=== PATIENT | male | born 1935 | race Caucasian/White ===

== ENCOUNTER 2017-03-25 23:13 | Inpatient (IN) | payer MEDICARE, BC ==
[2017-03-26 01:31] LABS: Hematocrit 32 % (42-52); Hemoglobin 10.3 g/dl (14.0-18.0); Mean Corpuscular HGB Conc 32 g/dl (31-36); Mean Corpuscular Hemoglobin 26 pg (27-31); Mean Corpuscular Volume 81 fL (80-94); Mean Platelet Volume 8 um3 (7.4-10.4); Red Blood Count 3.95 10^6/ul (4.0-5.4); Red Cell Distribution Width 20 % (10.5-15); White Blood Count 9.1 10^3/ul (3.5-10.8)
[2017-03-26 01:48] LABS: Troponin I 0.07 ng/mL (<0.04)
[2017-03-26 01:49] LABS: Albumin 3.7 g/dL (3.2-5.2); C Reactive Protein 1.32 mg/L (< 5.00); Calcium 8.9 mg/dL (8.6-10.3); EGFR African American 53.9 (>60); EGFR Non-African American 41.9 (>60); Globulin 2.8 g/dL (2-4); Potassium 3.8 mmol/L (3.5-5.0); Total Bilirubin 0.5 mg/dL (0.2-1.0); Total Protein 6.5 g/dL (6.4-8.9)
[2017-03-26] MEDS ORDERED: Heparin DRIP 25,000 UNITS(*) 25,000 UNITS/500 ML BAG IVPB SCH (02:45)
[2017-03-26] MEDS ORDERED: Heparin VIAL(*) 5000 UNITS/ML VIAL (FIVE THOUSAND) IV SCH (03:00)
[2017-03-26 03:05] LABS: Hematocrit 31 % (42-52); Hemoglobin 10.1 g/dl (14.0-18.0); Mean Corpuscular HGB Conc 33 g/dl (31-36); Mean Corpuscular Hemoglobin 26 pg (27-31); Mean Corpuscular Volume 81 fL (80-94); Mean Platelet Volume 8 um3 (7.4-10.4); Red Blood Count 3.85 10^6/ul (4.0-5.4); Red Cell Distribution Width 21 % (10.5-15); White Blood Count 8.4 10^3/ul (3.5-10.8)
[2017-03-26] MEDS ORDERED: Melatonin (NF) 3 MG TAB PO PRN (03:06)
[2017-03-26] MEDS ORDERED: Morphine INJ* 2 MG/ML 1 ML SYRINGE (TWO MG - NEW SYRINGE VERSION) IV PRN (03:06)
[2017-03-26] MEDS ORDERED: Acetaminophen TAB* 325 MG PO PRN (03:06)
[2017-03-26 03:07] LABS: Erythrocyte Sed Rate 41 mm/Hr (0-40)
[2017-03-26] MEDS ORDERED: Ondansetron INJ* 2 MG/ML VIAL IV PRN (03:08)
--- NOTE | 2017-03-26 03:11 | HP ---
H&P (Free Text) History and Physical: PCP: Rhonda Harp MD Cardiology: Yobany Hill MD Date/Time: 03/26/2017 0305 CC: chest pain HPI: Mr Méndez is a 81YO male HX DM, HTN, HLD, pAFIB who reports onset mid- afternoon of mild L chest tightness & pain with N/T into his LUE without SOB, N/ V, sweats, palpitations, or light-headedness. While he states it began without exertion, it occurred while he was cleaning manure out of his 's 2 pet reindeer's pen. It did not change, but this evening he noticed his heart rate elevated in the 120s and became concerned he was back in AFIB which prompted him to present. Currently he is pain free, but still has an unusual awareness of his LUE. 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 LLE Ambulatory Orders Calcium Carbonate-Cholecalcife [Calcium + D3 600-200 mg-Unit] 1 tab PO QAM 11/05 Multivitamins/Minerals TAB* [Thera M Plus TAB*] 1 tab PO DAILY 11/05/12 Atorvastatin* [Lipitor 20 MG*] 40 mg PO QPM 10/08/15 Insulin Glargine [Lantus Solostar] 14 units SUBCUT QAM 11/12/15 Amiodarone HCl [Amiodarone HCl-] 100 mg PO SEE INSTRUCTIONS 08/04/16 Aspirin Low Dose CHEW TAB* [Aspirin Low Dose TAB*] 81 mg PO DAILY 08/04/16 Chlorthalidone TAB* [Hygroton TAB*] 25 mg PO QPM 08/04/16 Warfarin TAB(*) [Coumadin TAB(*)] 4 mg PO DAILY 08/11/16 Isosorbide Mononitrate ER TAB* [Imdur ER TAB*] 30 mg PO DAILY 08/12/16 Amlodipine Besylate [Norvasc 5 mg tab] 5 mg PO DAILY 03/26/17 Allergies Furosemide [From Lasix] Allergy (Mild, Verified 03/26/17 03:07) Rash Tramadol [From Ultram] Adverse Reaction (Mild, Verified 03/26/17 03:07) Dizziness KATHRYN Inhibitors Adverse Reaction (Verified 08/11/16 16:20) Unknown Reaction Details hyperkalemia Angiotensin Receptor Blockers Adverse Reaction (Verified 08/11/16 16:20) Unknown Reaction Details hyperkalemia Spironolactone Adverse Reaction (Verified 08/11/16 16:20) Unknown Reaction Details Hyperkalemia 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 by infection SocHx: no tobacco, alcohol, or recreational drug HX; lives with his ; retired from [employer]; full code status FamHx: adopted, no information known ROS: as above, otherwise reviewed and all were negative vitals: Vital Signs Temp 36.9 C 03/25/17 23:21 Pulse 56 03/26/17 03:30 Resp 16 03/26/17 03:30 BP 150/57 03/26/17 03:30 Pulse Ox 98 03/26/17 03:30 Intake & Output 03/25/17 03/25/17 03/26/17 11:59 23:59 11:59 Weight 81.647 kg Constitutional: NAD, normally developed, overweight white male HEENM: atraumatic; sclera/conjunctiva: non-icteric/clear; hearing: clinically mildly decreased; oropharynx: clear, mucosa moist Neck: soft tissue: non-tender; thyroid: normal Pulmonary: clear to auscultation bilaterally, good aeration, no accessory muscle use CV: RR/RR, normal S1S2, no carotid bruit, no jugular venous distention, trace to 1+ L DP/PT, 1+ L ankle edema Abdominal: soft, non-distended, non-tender, no rebound/guarding/rigidity, normoactive bowel sounds, no hepatosplenomegaly or masses, no costovertebral angle tenderness Musculoskeletal: general: prosthetic RLE in place; gait: stable Integumental: normal appearance and texture of exposed skin Psychiatric orientation: AA&O to PPS affect: calm mood: cooperative eye contact: good to fair content: reliable responses: timely insight: fair Testing: Lab Results 03/26/17 03/26/17 03/26/17 Range/Units 00:50 00:50 00:50 WBC 9.1 (3.5-10.8) 10^3/ul RBC 3.95 L (4.0-5.4) 10^6/ul Hgb 10.3 L (14.0-18.0) g/dl Hct 32 L (42-52) % MCV 81 (80-94) fL MCH 26 L (27-31) pg MCHC 32 (31-36) g/dl RDW 20 H (10.5-15) % Plt Count 193 (150-450) 10^3/ul MPV 8 (7.4-10.4) um3 Neut % (Auto) 80.0 (38-83) % Lymph % (Auto) 7.2 L (25-47) % [place] % (Auto) 10.0 H (1-9) % Eos % (Auto) 2.1 (0-6) % Baso % (Auto) 0.7 (0-2) % Absolute Neuts (auto) 7.3 (1.5-7.7) 10^3/ul Absolute Lymphs (auto) 0.7 L (1.0-4.8) 10^3/ul Absolute Monos (auto) 0.9 H (0-0.8) 10^3/ul Absolute Eos (auto) 0.2 (0-0.6) 10^3/ul Absolute Basos (auto) 0.1 (0-0.2) 10^3/ul Absolute Nucleated RBC 0 10^3/ul Nucleated RBC % 0 ESR 41 H (0-40) mm/Hr INR (Anticoag Therapy) (0.89-1.11) APTT (26.0-36.3) seconds Sodium 134 (133-145) mmol/L Potassium 3.8 (3.5-5.0) mmol/L Chloride 103 (101-111) mmol/L Carbon Dioxide 26 (22-32) mmol/L Anion Gap 5 (2-11) mmol/L BUN 56 H (6-24) mg/dL Creatinine 1.60 H (0.67-1.17) mg/dL Est GFR ( Amer) 53.9 (>60) Est GFR (Non-Af Amer) 41.9 (>60) BUN/Creatinine Ratio 35.0 H (8-20) Glucose 196 H (70-100) mg/dL Lactic Acid 0.4 L (0.5-2.0) mmol/L Calcium 8.9 (8.6-10.3) mg/dL Total Bilirubin 0.50 (0.2-1.0) mg/dL AST 41 H (13-39) U/L ALT 48 (7-52) U/L Alkaline Phosphatase 40 (34-104) U/L Troponin I 0.07 H* (<0.04) ng/mL C-Reactive Protein 1.32 (< 5.00) mg/L B-Natriuretic Peptide ( - 100) pg/mL Total Protein 6.5 (6.4-8.9) g/dL Albumin 3.7 (3.2-5.2) g/dL Globulin 2.8 (2-4) g/dL Albumin/Globulin Ratio 1.3 (1-3) 03/26/17 03/26/17 03/26/17 Range/Units 00:50 02:50 02:50 WBC (3.5-10.8) 10^3/ul RBC (4.0-5.4) 10^6/ul Hgb (14.0-18.0) g/dl Hct (42-52) % MCV (80-94) fL MCH (27-31) pg MCHC (31-36) g/dl RDW (10.5-15) % Plt Count (150-450) 10^3/ul MPV (7.4-10.4) um3 Neut % (Auto) (38-83) % Lymph % (Auto) (25-47) % [place] % (Auto) (1-9) % Eos % (Auto) (0-6) % Baso % (Auto) (0-2) % Absolute Neuts (auto) (1.5-7.7) 10^3/ul Absolute Lymphs (auto) (1.0-4.8) 10^3/ul Absolute Monos (auto) (0-0.8) 10^3/ul Absolute Eos (auto) (0-0.6) 10^3/ul Absolute Basos (auto) (0-0.2) 10^3/ul Absolute Nucleated RBC 10^3/ul Nucleated RBC % ESR (0-40) mm/Hr INR (Anticoag Therapy) 3.22 H (0.89-1.11) APTT 46.2 H (26.0-36.3) seconds Sodium (133-145) mmol/L Potassium (3.5-5.0) mmol/L Chloride (101-111) mmol/L Carbon Dioxide (22-32) mmol/L Anion Gap (2-11) mmol/L BUN 54 H (6-24) mg/dL Creatinine (0.67-1.17) mg/dL Est GFR ( Amer) (>60) Est GFR (Non-Af Amer) (>60) BUN/Creatinine Ratio (8-20) Glucose (70-100) mg/dL Lactic Acid (0.5-2.0) mmol/L Calcium (8.6-10.3) mg/dL Total Bilirubin (0.2-1.0) mg/dL AST (13-39) U/L ALT (7-52) U/L Alkaline Phosphatase (34-104) U/L Troponin I 0.08 H* (<0.04) ng/mL C-Reactive Protein (< 5.00) mg/L B-Natriuretic Peptide 314 H ( - 100) pg/mL Total Protein (6.4-8.9) g/dL Albumin (3.2-5.2) g/dL Globulin (2-4) g/dL Albumin/Globulin Ratio (1-3) 03/26/17 Range/Units 02:50 WBC 8.4 (3.5-10.8) 10^3/ul RBC 3.85 L (4.0-5.4) 10^6/ul Hgb 10.1 L (14.0-18.0) g/dl Hct 31 L (42-52) % MCV 81 (80-94) fL MCH 26 L (27-31) pg MCHC 33 (31-36) g/dl RDW 21 H (10.5-15) % Plt Count 186 (150-450) 10^3/ul MPV 8 (7.4-10.4) um3 Neut % (Auto) 78.4 (38-83) % Lymph % (Auto) 8.1 L (25-47) % [place] % (Auto) 10.2 H (1-9) % Eos % (Auto) 2.9 (0-6) % Baso % (Auto) 0.4 (0-2) % Absolute Neuts (auto) 6.6 (1.5-7.7) 10^3/ul Absolute Lymphs (auto) 0.7 L (1.0-4.8) 10^3/ul Absolute Monos (auto) 0.9 H (0-0.8) 10^3/ul Absolute Eos (auto) 0.2 (0-0.6) 10^3/ul Absolute Basos (auto) 0 (0-0.2) 10^3/ul Absolute Nucleated RBC 0 10^3/ul Nucleated RBC % 0 ESR (0-40) mm/Hr INR (Anticoag Therapy) (0.89-1.11) APTT (26.0-36.3) seconds Sodium (133-145) mmol/L Potassium (3.5-5.0) mmol/L Chloride (101-111) mmol/L Carbon Dioxide (22-32) mmol/L Anion Gap (2-11) mmol/L BUN (6-24) mg/dL Creatinine (0.67-1.17) mg/dL Est GFR ( Amer) (>60) Est GFR (Non-Af Amer) (>60) BUN/Creatinine Ratio (8-20) Glucose (70-100) mg/dL Lactic Acid (0.5-2.0) mmol/L Calcium (8.6-10.3) mg/dL Total Bilirubin (0.2-1.0) mg/dL AST (13-39) U/L ALT (7-52) U/L Alkaline Phosphatase (34-104) U/L Troponin I (<0.04) ng/mL C-Reactive Protein (< 5.00) mg/L B-Natriuretic Peptide ( - 100) pg/mL Total Protein (6.4-8.9) g/dL Albumin (3.2-5.2) g/dL Globulin (2-4) g/dL Albumin/Globulin Ratio (1-3) ECG, personally reviewed: 1st degree AV block rate 61, elevated J-point V1-2, no ischemia; similar to comparison 05/08/2016 CXR, personally reviewed: no acute process ECHO (05/2016): Conclusions: There is normal left ventricular systolic function. The estimated ejection fraction is 50-55%. Global left ventricular wall motion and contractility are within normal limits. The left ventricular chamber size is normal. Mild concentric left ventricular hypertrophy is observed. The left atrium is mildly dilated. Mild aortic stenosis. Since the prior echocardiogram completed 09/28/15, appears similar. Impression: 81M HX DM, HTN, HLD, & PAOD presents with new onset of unstable angina DIAGNOSIS & PLAN Primary unstable angina : telemetry : heparin GTT : aspirin given by EMS en route : no beta willie 2nd bradycardia : supplemental oxygen : trend troponin : update ECHO in AM : NPO x/ meds w/ sips H2O : consider chemical NST in AM vs cardiology consult to eval for cath pending troponin curve & ECHO : supportive care Secondary DM2 : A1c 8.3 01/2017 : Q4H glucometry : basal/correctional insulin pAFIB : currently 1st degree AV block : s/p cardioversion 2017 : continue amiodarone : hold warfarin while on heparin GTT HTN : continue amlodipine PAOD/HLD : failed revascularization to LLE : continue simvastatin Admission Rational: observation for unstable angina DVTp: heparin GTT Code Status: full HCP:
--- NOTE | 2017-03-26 03:35 | ED ---
Nikhil Villatoro Rebecca, scribed for Jeronimo Finney MD on 03/26/17 at 0147 . HPI Chest Pain - HPI Summary HPI Summary: Pt is a 81 y/o M BIBA who presents to ED c/o CP. Pain began yesterday in the midsternum. Pain is currently not present, though on triage it was mild, ranked 1/10. Pt was given 324 mg ASA and NTG en route to [facility] ED which did not irm. Pain was radiating to the LUE with associated LUE numbness. Sx aggravated by deep breaths alleviated by nothing. Upon inspiration, pt feels a slight midsternal pressure. Denies SOB. No prior similar episodes. PCP is Dr. Harp, cardiologists is Dr. Hill. - History of Current Complaint Chief Complaint: EDChestPainROMI Hx Obtained From: Patient Onset/Duration: Resolved Initial Severity: Mild - 1/10 Current Severity: None Pain Intensity: 0 Pain Scale Used: 0-10 Numeric Chest Pain Location: Mid Sternal Chest Pain Radiates: Yes Chest Pain Radiates To:: Arm - LUE Character: Pressure/Squeezing Aggravating Factor(s): Deep Breaths Alleviating Factor(s): Nothing Associated Signs and Symptoms: Positive: Negative. Negative: Shortness of Breath - Additional Pertinent History Primary Care Physician: [id number] - Allergy/Home Medications Allergies/Adverse Reactions: Allergies Allergy/AdvReac Type Severity Reaction Status Date / Time Furosemide [From Lasix] Allergy Mild Rash Verified 03/26/17 03:07 Tramadol [From Ultram] AdvReac Mild Dizziness Verified 03/26/17 03:07 KATHRYN Inhibitors AdvReac Unknown Verified 08/11/16 16:20 Reaction Details Angiotensin Receptor Blockers AdvReac Unknown Verified 08/11/16 16:20 Reaction Details Spironolactone AdvReac Unknown Verified 08/11/16 16:20 Reaction Details Home Medications: Home Medications Amlodipine Besylate [Norvasc 5 mg tab] 5 mg PO DAILY 03/26/17 [History Confirmed 03/26/17] PMH/Surg Hx/FS Hx/Imm Hx Endocrine/Hematology History: Reports: Hx Diabetes - II Denies: Hx Thyroid Disease Cardiovascular History: Reports: Hx Atrial Fibrillation, Hx Hypertension, Hx Peripheral Vascular Disease Denies: Hx Congestive Heart Failure, Other Cardiovascular Problems/Disorders - DENIES Respiratory History: Denies: Other Respiratory Problems/Disorders - DENIES History: Reports: Hx Renal Disease Musculoskeletal History: Reports: Other Musculoskeletal History Denies: Hx Arthritis, Hx Osteoporosis Sensory History: Reports: Hx Cataracts, Hx Contacts or Glasses Opthamlomology History: Reports: Hx Cataracts, Hx Contacts or Glasses Neurological History: Denies: Hx Headaches, Hx Seizures, Hx Transient Ischemic Attacks (TIA) - Surgical History Surgery Procedure, Year, and Place: RIGHT LEG AMPUTATION, BILAT ROTATOR CUFFS Infectious Disease History: No Infectious Disease History: Denies: Traveled Outside the [place] in Last 30 Days - Family History Known Family History: Positive: Unknown - Adopted Family History: Unknown - pt is adopted - Social History Alcohol Use: None Hx Substance Use: No Substance Use Type: Reports: None Hx Tobacco Use: No Smoking Status (MU): Never Smoked Tobacco Review of Systems Positive: Palpitations, Chest Pain Negative: Shortness Of Breath Positive: Numbness - LUE numbness All Other Systems Reviewed And Are Negative: Yes Physical Exam - Summary Physical Exam Summary: Appearance: Well-appearing, Well-nourished Skin: Warm Eyes: Normal ENT: Normal Neck: Supple, nontender, no JVD Respiratory: Clear to auscultation Cardiovascular: Holosystolic murmur throughout the pericardium, good pulses bilaterally on the radial and posterior tibial areas Abdomen: Soft, nontender, no masses, no pulsatile masses Bowel: Present Musculoskeletal: Normal, Strength/ROM Intact Neurological: Normal, A&Ox3 Psychiatric: Normal Triage Information Reviewed: Yes Vital Signs On Initial Exam: Initial Vitals Temp Pulse Resp BP Pulse Ox 98.4 F 60 12 149/45 98 03/25/17 23:21 03/25/17 23:21 03/25/17 23:21 03/25/17 23:21 03/25/17 23:21 Vital Signs Reviewed: Yes - [place] Coma Scale Coma Scale Total: 15 Diagnostics - Vital Signs Vital Signs Temp Pulse Resp BP Pulse Ox 03/26/17 01:00 59 11 133/49 96 03/26/17 00:30 60 12 133/55 97 03/26/17 00:01 57 11 140/47 97 03/26/17 00:00 57 13 97 03/25/17 23:30 61 12 142/42 95 03/25/17 23:28 61 15 98 03/25/17 23:23 61 12 97 03/25/17 23:21 98.4 F 60 12 145/49 98 - Laboratory Lab Results: Lab Results 03/26/17 Range/Units 00:50 WBC 9.1 (3.5-10.8) 10^3/ul RBC 3.95 L (4.0-5.4) 10^6/ul Hgb 10.3 L (14.0-18.0) g/dl Hct 32 L (42-52) % MCV 81 (80-94) fL MCH 26 L (27-31) pg MCHC 32 (31-36) g/dl RDW 20 H (10.5-15) % Plt Count 193 (150-450) 10^3/ul MPV 8 (7.4-10.4) um3 Neut % (Auto) 80.0 (38-83) % Lymph % (Auto) 7.2 L (25-47) % [place] % (Auto) 10.0 H (1-9) % Eos % (Auto) 2.1 (0-6) % Baso % (Auto) 0.7 (0-2) % Absolute Neuts (auto) 7.3 (1.5-7.7) 10^3/ul Absolute Lymphs (auto) 0.7 L (1.0-4.8) 10^3/ul Absolute Monos (auto) 0.9 H (0-0.8) 10^3/ul Absolute Eos (auto) 0.2 (0-0.6) 10^3/ul Absolute Basos (auto) 0.1 (0-0.2) 10^3/ul Absolute Nucleated RBC 0 10^3/ul Nucleated RBC % 0 ESR Pending Result Diagrams: 03/26/17 02:50 03/26/17 02:50 Lab Statement: Any lab studies that have been ordered have been reviewed, and results considered in the medical decision making process. - Radiology CXR Xray Interpretation: Positive (See Comments) - Right-sided haziness, R-sided streaks suggestive of possible atelectasis versus consolidation. Radiology Interpretation Completed By: ED Physician - EKG 0025 Cardiac Rate: NL - 61 bpm EKG Rhythm: 1st Degree HB - Possible 1st degree heart block EKG Interpretation: Prolonged [place] interval Chest Pain Course/Dx - Course Course Of Treatment: started on heparin for possible nstemi. no acute ekg changes. has elevated troponin today, first degree heart block seen on prior ekgs. - Diagnoses Provider Diagnoses: NSTEMI (non-ST elevated myocardial infarction) - Provider Notifications Discussed Care Of Patient With: River Reyna Time Discussed With Above Provider: 03:00 Instructed by Provider To: Other Discharge - Discharge Plan Condition: Stable Disposition: ADMITT[facility] TO [facility] The documentation as recorded by the Nikhil morris Rebecca accurately reflects the service I personally performed and the decisions made by , Jeronimo Finney MD.
[2017-03-26 03:44] LABS: Troponin I 0.08 ng/mL (<0.04)
[2017-03-26] MEDS: Insulin LISPRO* 1 UNITS UNIT SUBCUT SCH ×5 (05:12→20:44)
[2017-03-26] MEDS: Omeprazole CAP* 20 MG PO SCH (05:13)
[2017-03-26 06:42] LABS: BUN/Creatinine Ratio 33.3 (8-20); Calcium 9.1 mg/dL (8.6-10.3); EGFR African American 56.7 (>60); EGFR Non-African American 44.1 (>60); Potassium 3.5 mmol/L (3.5-5.0)
[2017-03-26 07:05] LABS: Troponin I 0.08 ng/mL (<0.04)
--- NOTE | 2017-03-26 07:53 | RAD ---
HISTORY: Chest pain COMPARISONS: February 06, 2015 VIEWS: 1: frontal portable view of the chest at 12:18 AM FINDINGS: LINES AND TUBES: None. CARDIOMEDIASTINAL SILHOUETTE: The cardiomediastinal silhouette is normal for portable technique. PLEURA: The costophrenic angles are sharp. No pleural abnormalities are noted. LUNG PARENCHYMA: There is patchy alveolar opacification of the right lung base ABDOMEN: The upper abdomen is clear. There is no subphrenic gas. BONES AND SOFT TISSUES: No bone or soft tissue abnormalities are noted. IMPRESSION: PATCHY RIGHT BASILAR ATELECTASIS VERSUS CONSOLIDATION.
[2017-03-26] MEDS: Docusate CAP* 100 MG PO SCH ×2 (08:38→20:42)
[2017-03-26] MEDS ORDERED: Regadenoson* 0.4 MG/5 ML SYRINGE ONE (10:48)
--- NOTE | 2017-03-26 15:06 | ECHO ---
Patient: JACQUELINE ORTIZ [facility] Rec#: [id number] : 1935 Date: 03/26/2017 Age: 81y Height: 175.26 cm / 69.0 in Weight: 83.01 kg / 183.0 lbs Sex: M BSA: 1.99 Room#: [facility] Admit Date#: 03/26/2017 Type: Inpatient Referring: River Reyna MD Reading: Pankaj Tian MD [employer] Specialist: Nancy Dos Santos RDCS CC: Arley Harp MD Transthoracic Echocardiogram Indication: Unstable angina BP: 129/44 HR: 59 Rhythm: Bradycardia Findings History: DM, HTN, PVD, , CKD, HLD, paroxysmal a-fib, right BKA. Technical Comments: The study quality is fair. The study is technically limited due to poor apical windows. Completed at 1420. Left Ventricle: The left ventricular chamber size is normal. Mild concentric left ventricular hypertrophy is observed. Global left ventricular wall motion and contractility are within normal limits. There is normal left ventricular systolic function. The estimated ejection fraction is 55-60%. There is no consistent Doppler evidence of clinically significant diastolic dysfunction. Left Atrium: The left atrium is moderately dilated. Right Ventricle: The right ventricle is mildly dilated. The right ventricular global systolic function is low normal. Right Atrium: The right atrium is mildly dilated. Aortic Valve: Moderate aortic leaflet calcification is visualized. Systolic excursion of the aortic valve cusps is reduced. There is no evidence of aortic regurgitation. There is moderate aortic stenosis.by 2d and continuity. The mean gradient of the aortic valve is 15.6 mmHg. The peak instantaneous gradient of the aortic valve is 27.26 mmHg. The aortic valve area, by peak velocities, is calculated at 1.2 cm2. The aortic valve area, by VTI's, is calculated at 1.2 cm2. Mitral Valve: The mitral valve leaflets are mildly thickened. There is trace to mild mitral regurgitation. There is no evidence of mitral stenosis. Tricuspid Valve: The tricuspid valve leaflets are normal. There is trace tricuspid regurgitation. Unable to estimate the right ventricular systolic pressure. There is no tricuspid stenosis. Pulmonic Valve: The pulmonic valve appears normal. There is a trace pulmonic regurgitation. There is no pulmonic stenosis. Pericardium: There is no significant pericardial effusion. Aorta: There is no dilatation of the ascending aorta. There is no dilatation of the aortic arch. There is mild dilatation of the aortic root. Pulmonary Artery: The main pulmonary artery is not well visualized. Venous: The venous system is not well visualized. The inferior vena cava is not visualized. Conclusions The study quality is fair. Mild concentric left ventricular hypertrophy is observed. The estimated ejection fraction is 55-60%. The left atrium is moderately dilated. The right ventricle is mildly dilated. The right ventricular global systolic function is low normal. The right atrium is mildly dilated. There is moderate aortic stenosis.by 2d and continuity. The mitral valve leaflets are mildly thickened. There is trace to mild mitral regurgitation. There is trace tricuspid regurgitation. There is mild dilatation of the aortic root. Similar to 05/2016 except for mild increased in aortic velocity from 2.2 mps to 2.6 mps now. Measurements Name Value Normal Range RVIDd (AP) 2D 4.3 cm (0.9 - 2.6) RVDdMajor (2D) 4.6 cm (2.2 - 4.4) RAd ISD 4CH 5.1 cm (3.4 - 4.9) RA (A4C)W 4.4 cm (2.9 - 4.6) IVSd (2D) 1.2 cm (0.6 - 1) LVPWd (2D) 1.3 cm (0.6 - 1) LVIDd (2D) 4.9 cm (3.6 - 5.4) LVIDs (2D) 3.6 cm - LV FS (2D) 28 % (25 - 45) Aortic Annulus 2 cm (1.4 - 2.6) Ao root diameter (2D) 3.7 cm (2.1 - 3.5) Ascending Ao 3.4 cm (2.1 - 3.4) Aortic arch 2.8 cm (1.8 - 3.4) LA dimension (AP) 2D 5.1 cm (2.3 - 3.8) LAd ISD 4CH 5.7 cm (2.9 - 5.3) LA ISD 4CH W 4.5 cm (2.5 - 4.5) Name Value Normal Range LA ESV SP 4CH (A/L) 58 ml - LA ESV SP 2CH (A/L) 156 ml - LA ESV BP (A/L) 101 ml - LA ESV BP (A/L) index 51 ml/m2 - LA ESV SP 4CH (MOD) 55 ml - LA ESV SP 2CH (MOD) 147 ml - Name Value Normal Range MV E-wave Vmax 0.76 m/sec - MV deceleration time 248 msec - MV A-wave Vmax 0.47 m/sec - MV E:A ratio 1.62 ratio - LV septal e' Vmax 0.04 m/sec - LV lateral e' Vmax 0.07 m/sec - LV E:e' septal ratio 19 ratio - LV E:e' lateral ratio 10.86 ratio - Name Value Normal Range AV Vmax 2.6 m/sec - AV VTI 68.43 cm - AV peak gradient 27.26 mmHg - AV mean gradient 15.6 mmHg - LVOT diameter 2 cm - LVOT Vmax 1 m/sec - LVOT VTI 25.3 cm - LVOT peak gradient 4.17 mmHg - LVOT mean gradient 2.13 mmHg - DOI (VTI) 0.37 ratio - PANCHITO (continuity Vmax) 1.2 cm2 - PANCHITO (continuity VTI) 1.2 cm2 - CARIDAD Vmax 0.64 m/sec - Name Value Normal Range PV Vmax 1 m/sec - PV peak gradient 4.18 mmHg -
--- NOTE | 2017-03-26 15:26 | RAD ---
Edited for charges. INDICATION: Chest pain in a patient with multiple cardiac risk factors. COMPARISON: Chest x-ray dated March 26, 2017 TECHNIQUE: Rest images were acquired following the intravenous injection of 9.55 millicuries of technetium 99m tetrofosmin at 1109 hours. At 1410 hours stress images were acquired following the intravenous administration of 25.92 millicuries of technetium 99m tetrofosmin. Evaluation is limited by lack of attenuation correction due to the patient's inability to tolerate CT imaging. The patient received intravenous Lexiscan prior to the stress image acquisition. FINDINGS: There is fixed defect along the inferior wall of the left ventricular myocardium. On the dynamic images there is incomplete closure of the left ventricle. The ejection fraction is calculated at 44% during stress. IMPRESSION: Findings are limited by the lack of attenuation correction due to the patient's inability to tolerate CT scan positioning. There is scintigraphic evidence of infarction of the posterior left ventricular myocardium. ASSESSMENT: High risk Based on imaging criteria from ACC/AHA 2002 Guideline Update for the Management of Patients With Chronic Stable Angina Table 23. Noninvasive Risk Stratification. MTDD
--- NOTE | 2017-03-26 16:20 | PN ---
Subjective Date of Service: 03/26/17 Interval History: pt with resolution of his chest tightness and LUE numbness and tingling. nuclear stress test ordered. PT relates had stress test with Dr. Tian within last year that was reportedly normal. Objective Active Medications: Acetaminophen (Tylenol Tab*) 650 mg PO Q6H PRN PRN Reason: FEVER/PAIN Aspirin (Aspirin Ec Low Dose*) 81 mg PO DAILY [facility] Docusate Sodium (Colace Cap*) 200 mg PO BID [facility] Last Admin: 03/26/17 08:38 Dose: 200 mg Heparin Sodium (Porcine) (Heparin Vial(*)) 0 units IV .PER PROTOCOL JACK PRN Reason: Protocol Last Admin: 03/26/17 04:11 Dose: 6,100 units Heparin Sodium/Dextrose (Heparin Drip 25,000 Units(*)) 25,000 units in 500 mls @ 0 mls/hr IVPB .PER RATE JACK; Per Protocol PRN Reason: Protocol Last Admin: 03/26/17 04:12 Dose: 23 mls/hr Insulin Glargine (Lantus(*)) 16 units SUBCUT 2100 [facility] Stop: 03/27/17 20:00 Insulin Human Lispro (Humalog*) 0 units SUBCUT Q4H JACK PRN Reason: Protocol Last Admin: 03/26/17 13:30 Dose: Not Given Melatonin (Melatonin (Nf)) 3 mg PO BEDTIME PRN; Protocol PRN Reason: Sleep Morphine Sulfate (Morphine Inj (Syringe)*) 2 mg IV Q4H PRN PRN Reason: PAIN - MILD Omeprazole (Prilosec Cap*) 20 mg PO DAILY@0600 [facility] Last Admin: 03/26/17 05:13 Dose: 20 mg Ondansetron HCl (Zofran Inj*) 4 mg IV Q6H PRN PRN Reason: NAUSEA Vital Signs 03/26/17 03/26/17 03/26/17 03:30 04:00 04:02 Temperature 97.8 F Pulse Rate 56 67 Respiratory 16 16 16 Rate Blood Pressure 150/57 129/44 155/54 (mmHg) O2 Sat by Pulse 98 99 Oximetry 03/26/17 03/26/17 03/26/17 04:53 07:24 11:21 Temperature 98 F 98.3 F 97.4 F Pulse Rate 55 54 50 Respiratory 16 16 16 Rate Blood Pressure 129/44 136/51 145/51 (mmHg) O2 Sat by Pulse 98 97 100 Oximetry Oxygen Devices in Use Now: None Appearance: NAD Ears/Nose/Mouth/Throat: NL Teeth, Lips, Gums, Mucous Membranes Moist Respiratory: Symmetrical Chest Expansion and Respiratory Effort, Clear to Auscultation Cardiovascular: NL Sounds; No Murmurs; No JVD, RRR Abdominal: NL Sounds; No Tenderness; No Distention, No Hepatosplenomegaly Extremities: No Edema, - - s/p right BKA Skin: No Rash or Ulcers Neurological: Alert and Oriented x 3, NL Muscle Strength and Tone Result Diagrams: 03/26/17 02:50 03/26/17 05:53 Additional Lab and Data: Laboratory Results - last 24 hr 03/26/17 03/26/17 03/26/17 00:50 00:50 00:50 WBC 9.1 RBC 3.95 L Hgb 10.3 L Hct 32 L MCV 81 MCH 26 L MCHC 32 RDW 20 H Plt Count 193 MPV 8 Neut % (Auto) 80.0 Lymph % (Auto) 7.2 L [place] % (Auto) 10.0 H Eos % (Auto) 2.1 Baso % (Auto) 0.7 Absolute Neuts (auto) 7.3 Absolute Lymphs (auto) 0.7 L Absolute Monos (auto) 0.9 H Absolute Eos (auto) 0.2 Absolute Basos (auto) 0.1 Absolute Nucleated RBC 0 Nucleated RBC % 0 ESR 41 H INR (Anticoag Therapy) APTT Sodium 134 Potassium 3.8 Chloride 103 Carbon Dioxide 26 Anion Gap 5 BUN 56 H Creatinine 1.60 H Est GFR ( Amer) 53.9 Est GFR (Non-Af Amer) 41.9 BUN/Creatinine Ratio 35.0 H Glucose 196 H POC Glucose (mg/dL) Lactic Acid 0.4 L Calcium 8.9 Total Bilirubin 0.50 AST 41 H ALT 48 Alkaline Phosphatase 40 Troponin I 0.07 H* C-Reactive Protein 1.32 B-Natriuretic Peptide Total Protein 6.5 Albumin 3.7 Globulin 2.8 Albumin/Globulin Ratio 1.3 03/26/17 03/26/17 03/26/17 00:50 02:50 02:50 WBC RBC Hgb Hct MCV MCH MCHC RDW Plt Count MPV Neut % (Auto) Lymph % (Auto) [place] % (Auto) Eos % (Auto) Baso % (Auto) Absolute Neuts (auto) Absolute Lymphs (auto) Absolute Monos (auto) Absolute Eos (auto) Absolute Basos (auto) Absolute Nucleated RBC Nucleated RBC % ESR INR (Anticoag Therapy) 3.22 H APTT 46.2 H Sodium Potassium Chloride Carbon Dioxide Anion Gap BUN 54 H Creatinine Est GFR ( Amer) Est GFR (Non-Af Amer) BUN/Creatinine Ratio Glucose POC Glucose (mg/dL) Lactic Acid Calcium Total Bilirubin AST ALT Alkaline Phosphatase Troponin I 0.08 H* C-Reactive Protein B-Natriuretic Peptide 314 H Total Protein Albumin Globulin Albumin/Globulin Ratio 03/26/17 03/26/17 03/26/17 02:50 04:40 05:53 WBC 8.4 RBC 3.85 L Hgb 10.1 L Hct 31 L MCV 81 MCH 26 L MCHC 33 RDW 21 H Plt Count 186 MPV 8 Neut % (Auto) 78.4 Lymph % (Auto) 8.1 L [place] % (Auto) 10.2 H Eos % (Auto) 2.9 Baso % (Auto) 0.4 Absolute Neuts (auto) 6.6 Absolute Lymphs (auto) 0.7 L Absolute Monos (auto) 0.9 H Absolute Eos (auto) 0.2 Absolute Basos (auto) 0 Absolute Nucleated RBC 0 Nucleated RBC % 0 ESR INR (Anticoag Therapy) APTT Sodium 135 Potassium 3.5 Chloride 103 Carbon Dioxide 27 Anion Gap 5 BUN 51 H Creatinine 1.53 H Est GFR ( Amer) 56.7 Est GFR (Non-Af Amer) 44.1 BUN/Creatinine Ratio 33.3 H Glucose 165 H POC Glucose (mg/dL) 173 H Lactic Acid Calcium 9.1 Total Bilirubin AST ALT Alkaline Phosphatase Troponin I 0.08 H* C-Reactive Protein B-Natriuretic Peptide Total Protein Albumin Globulin Albumin/Globulin Ratio 03/26/17 03/26/17 03/26/17 07:41 11:36 13:00 WBC RBC Hgb Hct MCV MCH MCHC RDW Plt Count MPV Neut % (Auto) Lymph % (Auto) [place] % (Auto) Eos % (Auto) Baso % (Auto) Absolute Neuts (auto) Absolute Lymphs (auto) Absolute Monos (auto) Absolute Eos (auto) Absolute Basos (auto) Absolute Nucleated RBC Nucleated RBC % ESR INR (Anticoag Therapy) APTT > 212.0 H* Sodium Potassium Chloride Carbon Dioxide Anion Gap BUN Creatinine Est GFR ( Amer) Est GFR (Non-Af Amer) BUN/Creatinine Ratio Glucose POC Glucose (mg/dL) 152 H 141 H Lactic Acid Calcium Total Bilirubin AST ALT Alkaline Phosphatase Troponin I C-Reactive Protein B-Natriuretic Peptide Total Protein Albumin Globulin Albumin/Globulin Ratio Assess/Plan/Problems-Billing Assessment: 81 year old IDDM, CKD stage 3b, PAOD s/p right BKA, pAfib p/w chest tightness/ LUE numbness. Put on heparin gtt. Troponins 0.07-0.08. Nuclear stress high risk (infarction of posterior LV), ECHO with preserved EF, moderate aortic stenosis. - Patient Problems (1) NSTEMI (non-ST elevated myocardial infarction) Current Visit: No Status: Acute Priority: High Code(s): I21.4 - NON-ST ELEVATION (NSTEMI) MYOCARDIAL INFARCTION SNOMED Code(s): 099976344 Comment: chest pain with LUE numbness troponin peak/flat 0.07 -> 0.08 ->0.08 ECHO with EF 55-60% nuclear stress with e/o posterior LV infarction. high risk cardiology consulted. likely medical managment. (2) Elevated troponin Current Visit: No Status: Acute Code(s): R79.89 - OTHER SPECIFIED ABNORMAL FINDINGS OF BLOOD CHEMISTRY SNOMED Code(s): 257065137 Comment: chest pain with LUE numbness troponin peak/flat 0.07 -> 0.08 ->0.08 ECHO with EF 55-60% nuclear stress with e/o posterior LV infarction. high risk cardiology consulted. no listed BB on home meds. relative bradycardia here. Trying to obtain outpatient records. (3) Afib Current Visit: No Status: Acute Code(s): I48.91 - UNSPECIFIED ATRIAL FIBRILLATION SNOMED Code(s): 42924103 Comment: continue home amiodarone home warfarin held (4mg) for elevated INR 3.2 (4) Hypertension Current Visit: No Status: Acute Code(s): I10 - ESSENTIAL (PRIMARY) HYPERTENSION SNOMED Code(s): 82450711 Comment: was on imdur 30mg daily, and amlodipine 5mg daily. held here (5) Type 2 diabetes mellitus Current Visit: No Status: Chronic Priority: High Comment: was on lantus 14U qhs (16U here) bad vasculopath Risk factor for CAD Status and Disposition: medicine obs, possible d/c later tonight after cardiology eval with Attending: Santos Dueñas
[2017-03-26] MEDS ORDERED: Isosorbide Mononitrate ER TAB* 30 MG ONE (17:32)
[2017-03-26] MEDS: Isosorbide Mononitrate ER TAB* 30 MG PO SCH (17:35)
[2017-03-26] MEDS ORDERED: Insulin GLARGINE(*) 1 UNITS UNIT SUBCUT SCH (21:00)
--- NOTE | 2017-03-27 00:28 | CONS ---
CC: Dr. Duff; Dr. Hill CARDIOLOGY CONSULTATION: DATE OF CONSULT: 03/26/17 CONSULTING PHYSICIAN: Dr. Santos Dueñas. REASON FOR EVALUATION: Chest pain. HISTORY OF PRESENT ILLNESS: This is a very pleasant 81-year-old gentleman, who has a longstanding h istory of vascular disease, hypertension, hyperlipidemia and tachy- mikael syndrome, who has been fol lowed by Dr. Hill as an outpatient. He also has a history of an abnormal nuclear stress test in [facility], which suggested an inferior CT with sophy-infarct ischemia. He has been managed conservatively and has had to limit his negative chronotropes because of admission for symptomatic bradycardia and hyperkalemia back in May of 2016. 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 He says he uses a walker and is able to walk to his mail box at 100 feet and back without get ting chest pain. He is limited by back discomfort and musculoskeletal issues. He works for 20 goyo jennifer at a time stopping here and there when he does his chores, taking care of the animals. Yesterda y, he said he was out in the yard and noticed that he had some achiness in his left chest that was p ositional and some numbness in his left arm. His symptoms waxed and waned over the course of the da y and then he noticed for a period of time that his heart rate was in the 120s when he took his puls e with a pulse oximeter. Because of these symptoms, he came to the emergency room. He has some non specific ST changes, not significantly different than the past ones and he was initial troponin of 0 .08 followed by 0.08 and 0.07. The patient said that yesterday while doing his chores, he developed some chest discomfort and arm discomfort as described earlier, it waxed and waned, he also noted th at his heart rate was elevated on a pulse oximeter. He thought he was having episode of AFib and ca me to the emergency room and he was noted to be in sinus rhythm with some minor nonspecific ST pretty es. He was admitted to rule out. Today, he had an echocardiogram, which showed normal wall motion with moderate at 1.2 cm squared, [id number] MR, trace TR, EF of 55% to 60% with mild concentri c LVH similar to May 2016 except a mild increase in velocity from 2.2 to 2.6 meters per second. He also had a nuclear stress test performed, which revealed fixed defect along the inferior wall o f the left ventricle, the ejection fraction was calculated at 44% during stress, although findings w ere limited due to the patient's inability to tolerate CT scan positioning, it was felt to be a high risk study. Because of those findings, consultation is requested. The patient denies any chest pa in since yesterday. Denies any syncope, near syncope, or palpitations. No orthopnea. No peripheral edema. PAST MEDICAL HISTORY: Includes paroxysmal atrial fibrillation; sick sinus syndrome; insulin-depende nt diabetes; hypertension, renal insufficiency stage 3; history of Guillain-[place]; admission in [facility]2015 for hyperkalemia and symptomatic bradycardia attributed to the diltiazem, Aldactone, an d amiodarone; non- ST elevation CT with peak troponin of 0.8 that was attributed to a low false stat e. PAST SURGICAL HISTORY: Includes right BKA about 30 years ago. MEDICATIONS: As an outpatient include: 1. Warfarin. 2. Amiodarone 100 mg 3 times a week. 3. Amlodipine 5 mg a day. 4. Atorvastatin 40 mg a day. 5. Aspirin 81 mg a day. 6. Multivitamin. 7. Isosorbide mononitrate 30 mg a day. 8. Lantus insulin 40 units subcu q.a.m. 9. Chlorthalidone 25 mg q.p.m. 10. Calcium carbonate. 11. Cholecalciferol 1 tablet a day. As an inpatient he is also on: 1. Colace. 2. Melatonin 3 mg at bedtime. 3. Warfarin 2 mg IV q.4 p.r.n. 4. Omeprazole 20 mg a day. 5. Zofran 4 mg p.r.n. IV q.6. 6. Amlodipine was held. ALLERGIES: Include LASIX, TRAMADOL, KATHRYN INHIBITORS, ARBS, and SPIRONOLACTONE. FAMILY HISTORY: Not available due to the fact that he is adopted. SOCIAL HISTORY: He denies history of tobacco use. Denies alcohol use. He is . He has 5 ch ildren. 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 Denies caffeine use. REVIEW OF SYSTEMS: Review of systems x10 was negative except as above. PHYSICAL EXAM: He is a well-developed, well-nourished gentleman, in no apparent distress. Alert an d oriented x3. Blood pressure 145/48, pulse of 55, afebrile, O2 sats 100% on room air. No signific ant JVD. Carotids 2+ with bruits or transmitted murmurs bilaterally. Extraocular muscles are intac t. Sclerae anicteric. Cardiac Exam: S1, S2 with a 3/6 systolic ejection murmur at the base radiat ing across the precordium. Chest: Clear with decreased breath sounds, increased resonant to percus nils. No CVAT. Abdomen: Bowel sounds present and nontender. Radial pulses intact. Femoral pulse s intact without bruits, status post right BKA. On the left, distal pulses were diminished, but pal pable. There was trace edema. Motor strength 5/5 bilaterally. Deep tendon reflexes 2/4 in the upp er extremities, unable to elicit in the lower extremities. DIAGNOSTIC STUDIES/LAB DATA: Included sodium of 135, potassium of 3.5, BUN 51, creatinine 1.53. Wh ite count of 8.4, hemoglobin of 10, hematocrit of 31, platelet count of 186, sed rate of 41. INR wa s 3.22, he is on IV heparin and his PTT was greater than 212. His EKG from today revealed sinus bradycardia with first degree AV block and inferolateral ST-T huitron ges. These were similar to 03/12/17, but slightly more pronounced compared to May 2016. IMPRESSION AND PLAN: My impression is that Mr. Méndez has probable coronary disease as well as hypert ension, renal insufficiency, diabetes, hyperlipidemia, and vascular disease. We discussed the poten tial for his symptoms to represent progression of his coronary disease; however, these symptoms are atypical for ischemia and I am concerned that we put him at risk for worsening renal insufficiency a nd renal failure with a cath. I discussed with him the advantages and disadvantages at length and d iscussed the case with Dr. Etienne as well as Dr. Dueñas. For the time being, I recommend the followin . I suggested that he continue on his Imdur, amlodipine, and nitrate, aspirin and anticoagulation as tolerated. 2. He is to be observed overnight, ambulate around the [place]. If he has recurrent pain suggestive o f ischemia, we will consider catheterization. 3. If he remains free of symptoms suggestive of ischemia, we will consider followup as an outpatien t. 4. I discussed with Dr. Dueñas stopping his IV heparin at this point in time given his therapeutic IN R and his symptoms are not suggestive of acute coronary artery syndrome. 5. I asked him to reconsider his decision about declining a pacemaker given his tachy-mikael syndrom e, a pacemaker might enable us to better control his bradycardia and his anginal with more definitiv e use of beta-blockers and calcium channel blockers in light of his AFib. 6. His prognosis is guarded given his vascular disease and comorbidities. He is to follow up with Dr. Hill as an outpatient. [id number]/[facility] #: [id number]
[2017-03-27] MEDS: Insulin LISPRO* 1 UNITS UNIT SUBCUT SCH ×3 (02:16→08:51)
[2017-03-27 03:00] LABS: Hematocrit 30 % (42-52); Hemoglobin 9.7 g/dl (14.0-18.0); Mean Corpuscular HGB Conc 33 g/dl (31-36); Mean Corpuscular Hemoglobin 27 pg (27-31); Mean Corpuscular Volume 81 fL (80-94); Mean Platelet Volume 8 um3 (7.4-10.4); Red Blood Count 3.66 10^6/ul (4.0-5.4); Red Cell Distribution Width 20 % (10.5-15)
[2017-03-27] MEDS: Omeprazole CAP* 20 MG PO SCH (06:16)
[2017-03-27 08:48] VITALS: BP 113/45
[2017-03-27] MEDS ORDERED: amLODIPine TAB* 5 MG PO SCH (09:00)
[2017-03-27] MEDS ORDERED: Aspirin EC Low Dose* 81 MG TAB.EC PO SCH (09:00)
[2017-03-27] MEDS ORDERED: Amiodarone TAB* 200 MG PO SCH (09:00)
[2017-03-27] MEDS: Isosorbide Mononitrate ER TAB* 30 MG PO SCH (09:21)
[2017-03-27] MEDS: Docusate CAP* 100 MG PO SCH (09:21)
--- NOTE | 2017-03-28 03:20 | DS ---
DISCHARGE SUMMARY: DATE OF ADMISSION: 03/26/17 DATE OF DISCHARGE: 03/27/17 ADMITTING PHYSICIAN: River Reyna MD ATTENDING PHYSICIAN: Santos Dueñas MD PRIMARY TOOL/DIE MAKER: Dr. Mulugeta Hill. PRIMARY CARE PROVIDER: Dr. Harp. CHIEF COMPLAINT: Chest pain and left upper extremity numbness. PRINCIPAL DIAGNOSES: Atypical chest pain; evidence of fixed posterior infarction on stress test; vasculopathy. PAST MEDICAL HISTORY: Insulin-dependent diabetes mellitus; paroxysmal AFib, status post cardioversion on amiodarone and warfarin; hypertension; hyperlipidemia; peripheral arterial occlusive disease, status post failed attempt of stent in left lower extremity; and status post below-knee amputation on the right side. HISTORY OF PRESENT ILLNESS AND HOSPITAL COURSE: Pradip Méndez is a 81-year-old male, PMH as above, who presented with mild left chest tightness and pain with numbness and tingling extending into his left upper extremity. He denied shortness of breath, nausea, vomiting, sweats, palpitations, or lightheadedness. Onset was mid afternoon on day of admission, initially began at rest, though he did later start picking up maneuver from his 's reindeer pants, did that seemed to worsen the pain. He later noticed his heart rate was elevated into the 120s on his portable monitor, became concern he is back into AFib and cause him to present to the hospital. By time of evaluation, by admitting hospitalist, he was chest pain-free, but still had left upper extremity tingling and numbness. He was placed on a heparin drip. His initial troponins were 0.07 and repeat at 0.08 and 0.08. His initial EKG demonstrated slight ST elevations approximately 1 mm in V2 lead, which seemed new because of his bad vasculopathy and symptoms. He was given a nuclear stress test, which was reported to be a high risk and demonstrating a fixed defect along the inferior wall of the left ventricular myocardium, ejection fraction was 44%. The findings were somewhat limited by lack of attenuation and correction to the patient's inability to tolerate the positioning and the CT scan. The patient had a transthoracic echocardiogram, which demonstrated ejection fraction 55% to 60%. No significant diastolic dysfunction. Mild concentric left ventricular hypertrophy, moderate aortic stenosis, trace to mild mitral regurgitation, trace tricuspid regurgitation. Mitral valves were mildly thickened. Left atrium was mildly dilated. Mild dilatation of the aortic root compared to May 2016 study, there was a mildly increased aortic velocity from 2.2 to 2.6 meters per second. Due to the resulting high-risk nuclear stress test, Dr. Pankaj Tian was consulted of Cardiology. Of note, the patient has CKD stage 3 and initial creatinines were at his baseline between 1.5 and 1.6 with GFR of low 40s. Dr. Tian recommended continuing medical management and additional records from Dr. Hill's office were obtained. The patient has not been on a beta-willie as he has a relative bradycardia and was in the mid 50s here. Dr. Tian has suggested reconsideration about declining a pacemaker for his tachybrady syndrome such that either use of beta-blockers and calcium channel blockers might be used. He recommended restarting his Imdur, amlodipine , p.r.n. nitrates, aspirin, and Coumadin. The patient was observed one more night, symptoms not returned when he walked around the unit and he was considered stable for discharge with followup with Dr. Hill. Dr. Tian did not believe this episode was consistent with an acute ischemic event, but the patient likely does have underlying coronary artery disease. There were no changes in his outpatient medications made. HOME MEDICATIONS: On discharge include: 1. Amiodarone 100 mg every other day. 2. Amlodipine 5 mg daily. 3. Aspirin 81 mg daily. 4. Atorvastatin 40 mg daily. 5. Calcium carbonate. 6. Cholecalciferol 1 tab p.o. q.a.m. 7. Chlorthalidone 25 mg p.o. q.p.m. 8. Insulin Lantus 40 units q.a.m. 9. Imdur 30 mg p.o. daily. 10. Multivitamin tab 1 tab p.o. daily. 11. Warfarin 4 mg p.o. daily. DISCHARGE DIET: Includes carbohydrate consistent, heart healthy. ACTIVITY LEVEL: No restrictions. FOLLOWUP: The patient to follow up with Dr. Arley Harp within 5 days of discharge and Dr. Hill within 2 weeks of discharge. TIME SPENT: On discharge, 35 minutes. [id number]/[facility] #: [id number] [facility]ITALTyler
== END 2017-03-27 11:45 | disposition home or self-care (01) | DRG 309 ==
LOC: ED 23:13 → MEDTELE 03-26 03:03 → OBSVTOIN 03-26 17:31
PROVIDERS: ADMIT Hospitalist; ATTEND Internal Medicine
DX: I48.0 Paroxysmal atrial fibrillation (principal); M31.9 Necrotizing vasculopathy, unspecified; I08.3 Combined rheumatic disorders of mitral, aortic and tricuspid valves; I49.5 Sick sinus syndrome; R07.89 Other chest pain; I25.10 Atherosclerotic heart disease of native coronary artery without angina pectoris; E11.9 Type 2 diabetes mellitus without complications; R94.39 Abnormal result of other cardiovascular function study; E78.5 Hyperlipidemia, unspecified; I70.90 Unspecified atherosclerosis; Z89.511 Acquired absence of right leg below knee; N18.3 Chronic kidney disease, stage 3 (moderate); Z79.82 Long term (current) use of aspirin; Z79.4 Long term (current) use of insulin; Z79.01 Long term (current) use of anticoagulants; 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 with stage 1 through stage 4 chronic kidney disease, or unspecified chronic kidney disease; Z88.8 Allergy status to other drugs, medicaments and biological substances; Z88.6 Allergy status to analgesic agent; E66.3 Overweight; Z68.25 Body mass index [BMI] 25.0-25.9, adult; I44.0 Atrioventricular block, first degree; H26.9 Unspecified cataract; R40.2412 Glasgow coma scale score 13-15, at arrival to emergency department; R74.8 Abnormal levels of other serum enzymes; I25.2 Old myocardial infarction
CPT/HCPCS: 36415; 71010; 78452; 80048; 80053; 83605; 83880; 84484; 84520; 85025; 85610; 85652; 85730; 86140; 93005; 93017; 93306; A9270-GY; A9502; G0378; J1644; J2785

== ENCOUNTER 2017-11-05 03:32 | Inpatient (IN) | payer MEDICARE, BC ==
[2017-11-05 04:04] LABS: Hematocrit 26 % (42-52); Hemoglobin 8.7 g/dl (14.0-18.0); Mean Corpuscular HGB Conc 33 g/dl (31-36); Mean Corpuscular Hemoglobin 30 pg (27-31); Mean Corpuscular Volume 90 fL (80-94); Mean Platelet Volume 7.4 um3 (7.4-10.4); Platelet Count 247 10^3/ul (150-450); Red Blood Count 2.92 10^6/ul (4.0-5.4); Red Cell Distribution Width 14 % (10.5-15); White Blood Count 17.6 10^3/ul (3.5-10.8)
[2017-11-05 04:19] LABS: INR 7.43 (0.77-1.02)
[2017-11-05 04:20] LABS: EGFR Non-African American 35.4 (>60)
[2017-11-05 04:23] LABS: ABS Basophils 0.1 10^3/ul (0-0.2); ABS Eosinophils 0.1 10^3/ul (0-0.6); ABS Lymphocytes 0.4 10^3/ul (1.0-4.8); ABS Monocytes 1.7 10^3/ul (0-0.8); ABS Neutrophils 15.4 10^3/ul (1.5-7.7); ABS Nucleated RBC 0 10^3/ul; Eosinophil % 0.6 % (0-6); Lymphocyte % 2.4 % (25-47); Nucleated Red Blood Cells % 0
[2017-11-05] MEDS ORDERED: Levofloxacin 500 MG IVPREMIX(* 500 MG/100 ML BAG IVPB ONE (04:23)
--- NOTE | 2017-11-05 04:50 | ED ---
Nikhil Villatoro Rebecca, scribed for Houston Caal MD on 11/05/17 at 0347 . HPI Chest Pain - HPI Summary HPI Summary: Pt is an 82 y/o M BIBA who presents to ED c/o CP. 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 Currently, pain is resolved. 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 Additionally c/o LE weakness bilaterally for about 1 week, cough, and SOB. Denies fever. PMHx HTN. - History of Current Complaint Chief Complaint: EDChestPainROMI Time Seen by Provider: 11/05/17 03:34 Hx Obtained From: Patient Onset/Duration: Started Hours Ago, Resolved Current Severity: None Pain Intensity: 0 Pain Scale Used: 0-10 Numeric Chest Pain Location: Mid Sternal Chest Pain Radiates: No Character: Heaviness Aggravating Factor(s): Nothing Alleviating Factor(s): Medication - ASA Associated Signs and Symptoms: Positive: Shortness of Breath, Cough. Negative: Fever - Additional Pertinent History Primary Care Physician: [id number] - Allergy/Home Medications Allergies/Adverse Reactions: Allergies Allergy/AdvReac Type Severity Reaction Status Date / Time furosemide Allergy Mild Rash Verified 11/05/17 03:54 tramadol Allergy Mild Dizziness Verified 11/05/17 03:54 KATHRYN Inhibitors Allergy Unknown Verified 11/05/17 03:54 Reaction Details spironolactone Allergy Unknown Verified 11/05/17 03:54 Reaction Details Angiotensin Receptor Blockers Allergy Unknown Uncoded 11/05/17 03:55 Reaction Details Home Medications: Home Medications Sitagliptin (NF) [Januvia (NF)] 50 mg PO DAILY 11/05/17 [History Confirmed 11/05] PMH/Surg Hx/FS Hx/Imm Hx Endocrine/Hematology History: Reports: Hx Diabetes - II Denies: Hx Thyroid Disease Cardiovascular History: Reports: Hx Angina, Hx Atrial Fibrillation, Hx Hypercholesterolemia, Hx Hypertension, Hx Peripheral Vascular Disease Denies: Hx Congestive Heart Failure, Hx Coronary Artery Disease, Hx Myocardial Infarction, Hx Valvular Heart Disease, Other Cardiovascular Problems/ Disorders - DENIES Respiratory History: Denies: Other Respiratory Problems/Disorders - DENIES History: Reports: Hx Renal Disease Musculoskeletal History: Reports: Other Musculoskeletal History Denies: Hx Arthritis, Hx Osteoporosis Sensory History: Reports: Hx Cataracts, Hx Contacts or Glasses Denies: Hx Hearing Aid Opthamlomology History: Reports: Hx Cataracts, Hx Contacts or Glasses Neurological History: Denies: Hx Headaches, Hx Seizures, Hx Transient Ischemic Attacks (TIA) - Surgical History Surgery Procedure, Year, and Place: RIGHT LEG AMPUTATION, BILAT ROTATOR CUFFS Infectious Disease History: No Infectious Disease History: Denies: Traveled Outside the [place] in Last 30 Days - Family History Known Family History: Positive: Unknown - Adopted Family History: Unknown - pt is adopted - Social History Alcohol Use: None Hx Substance Use: No Substance Use Type: Reports: None Hx Tobacco Use: No Smoking Status (MU): Never Smoked Tobacco Have You Smoked in the Last Year: No Review of Systems Negative: Fever Positive: Chest Pain Positive: Shortness Of Breath, Cough Positive: Weakness - Bilateral LE All Other Systems Reviewed And Are Negative: Yes Physical Exam - Summary Physical Exam Summary: VITAL SIGNS: Reviewed. GENERAL: ~Patient is a well-developed and nourished male who is lying comfortable in the stretcher. Patient is not in any acute respiratory distress. HEAD AND FACE: No signs of trauma. No ecchymosis, hematomas or skull depressions. No sinus tenderness. EYES: PERRLA, EOMI x 2, No injected conjunctiva, no nystagmus. EARS: Hearing grossly intact. Ear canals and tympanic membranes are within normal limits. MOUTH: Oropharynx within normal limits. NECK: Supple, trachea is midline, no adenopathy, no JVD, no carotid bruit, no c- spine tenderness, neck with full ROM. CHEST: Symmetric, no tenderness at palpation LUNGS: Clear to auscultation bilaterally. No wheezing or crackles. CVS: Regular rate and rhythm, S1 and S2 present, no gallops appreciated, 2/6 systolic murmur over left sternal border ABDOMEN: Soft, non-tender. No signs of distention. No rebound no guarding, and no masses palpated. Bowel sounds are normal. EXTREMITIES: Right BKA, some ecchymosis and abrasions over the left leg, FROM in all major joints, no edema, no cyanosis or clubbing. NEURO: Alert and oriented x 3. No acute neurological deficits. Speech is normal and follows commands. SKIN: Dry and warm Triage Information Reviewed: Yes Vital Signs On Initial Exam: Initial Vitals Temp Pulse Resp BP Pulse Ox 98.3 F 83 19 129/56 97 11/05/17 03:39 11/05/17 03:39 11/05/17 03:39 11/05/17 03:39 11/05/17 03:39 Vital Signs Reviewed: Yes Diagnostics - Vital Signs Vital Signs Temp Pulse Resp BP Pulse Ox 11/05/17 03:39 98.3 F 83 19 129/56 97 - Laboratory Result Diagrams: 11/05/17 03:51 11/05/17 03:51 Lab Statement: Any lab studies that have been ordered have been reviewed, and results considered in the medical decision making process. - Radiology CXR Xray Interpretation: Positive (See Comments) - Bilateral congestion, bilateral basilar infiltrates, consistent with PNA. Pending official report. Radiology Interpretation Completed By: ED Physician - EKG 0345 Cardiac Rate: NL - 77 bpm EKG Rhythm: Sinus Rhythm ST Segment: Non-Specific EKG Interpretation: LVH Re-Evaluation - Re-Evaluation First Eval Re-Evaluation Time: 04:28 Comment: Discussed results with pt. 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 Additionally c/o LE weakness bilaterally for about 1 week, cough, and SOB. Denies fever. PMHx HTN. Blood work was done with results including WBC of 17.6 , INR of 7.43, troponin of 0.06, and BNP of 402. CXR is bilateral congestion and bilateral basilar infiltrates, consistent with PNA. EKG is sinus rhythm with LVH and non-specific T wave changes. In the ED course, pt received Levaquin. Pt was not given IV fluids due to possible CHF. The pt is dehydrated, so he will receive mild hydration. Pt has no bleeding, so no indication for FFP or vitamin K at this time. Discussed care of pt with Dr. Allison who accepts pt for admission. Pt will be admitted with Dx of bilateral PNA, CP, and medicatin induced coagulopathy. Allergies noted. - Diagnoses Provider Diagnoses: Chest pain, Bilateral pneumonia, Medication induced coagulopathy - Provider Notifications Discussed Care Of Patient With: Hanna Karthikeyan Time Discussed With Above Provider: 04:30 Instructed by Provider To: Other - Accepts pt for admission. Discharge - Sign-Out/Discharge Documenting (check all that apply): Discharge/Admit/Transfer - Admit - Discharge Plan Condition: Fair Disposition: ADMITTED TO [facility] Referrals: Arley Harp MD [Primary Care Provider] - The documentation as recorded by the Nikhil morris Rebecca accurately reflects the service I personally performed and the decisions made by , Houston Caal MD.
[2017-11-05] MEDS ORDERED: NS 0.9% 500 ML* 500 ML IV SCH ×2 (05:00→10:21)
[2017-11-05] MEDS ORDERED: Acetaminophen TAB* 325 MG PO PRN (05:18)
[2017-11-05] MEDS ORDERED: Dextrose 50% Syringe 50 ML* 25 GM/50 ML SYRINGE IV PUSH PRN ×2 (05:18→10:00)
[2017-11-05] MEDS ORDERED: Ondansetron 40 MG VIAL* 2 MG/ML 20 ML VIAL IV PRN (05:18)
[2017-11-05] MEDS ORDERED: Potassium Chlor TAB* 20 MEQ TAB.ER PO ONE (05:24)
[2017-11-05] MEDS ORDERED: Phytonadione Oral Solution* 5 MG/25 ML UDC PO ONE (05:25)
[2017-11-05] MEDS ORDERED: NS 0.9% 1000 ML* 1,000 ML IV SCH (05:30)
[2017-11-05] MEDS ORDERED: Azithromycin IV(*) 500 MG in D5W 250 ML BAG* 250 ML IVPB SCH (06:00)
[2017-11-05] MEDS ORDERED: Pantoprazole IV* 40 MG IV ONE (06:16)
[2017-11-05] MEDS ORDERED: Pantoprazole IV* 80 MG in NS 0.9% 250 ML* 250 ML IVPB SCH (07:30)
--- NOTE | 2017-11-05 08:11 | RAD ---
Indication: Chest pain. Hypertension. Comparison: March 26, 2017 Technique: Upright AP 0401 hours Report: Patchy bilateral predominantly mid and lower lung zone alveolar opacities and mild prominence of interstitial markings with subtle peripheral thickened interlobular septa. Probable small subpulmonic LEFT pleural effusion. Negative for pneumothorax. Negative for cardiomegaly. Mildly prominent and ill-defined central pulmonary vasculature. Unremarkable mediastinal contours. IMPRESSION: Mild pulmonary vascular congestion with alveolar and interstitial edema. Probable associated small LEFT pleural effusion.
[2017-11-05 08:37] LABS: Hematocrit 25 % (42-52); Hemoglobin 8.3 g/dl (14.0-18.0)
[2017-11-05] MEDS ORDERED: Insulin LISPRO* 1 UNITS UNIT SUBCUT ONE (10:00)
[2017-11-05] MEDS: Insulin LISPRO* 1 UNITS UNIT SUBCUT SCH ×3 (10:08→17:23)
[2017-11-05] MEDS: cefTRIAXone(*) 1 GM in NS 0.9% 50 ML* 50 ML IVPB SCH (10:29)
[2017-11-05 10:31] LABS: INR 8.78 (0.77-1.02)
[2017-11-05] MEDS: DOXYcycline IV* 100 MG in NS 0.9% 250 ML* 250 ML IVPB SCH ×2 (10:36→21:44)
[2017-11-05] MEDS: Insulin GLARGINE(*) 1 UNITS UNIT SUBCUT SCH (10:36)
[2017-11-05] MEDS: Isosorbide Mononitrate ER TAB* 30 MG PO SCH (10:38)
[2017-11-05] MEDS: Pantoprazole IV* 80 MG in NS 0.9% 250 ML* 250 ML IVPB SCH ×2 (12:19→23:49)
--- NOTE | 2017-11-05 13:12 | ECHO ---
Patient: JACQUELINE ORTIZ [facility] Rec#: [id number] : 1935 Date: 11/05/2017 Age: 82y Height: 175.26 cm / 69.0 in Weight: 75.75 kg / 167.0 lbs Sex: M BSA: 1.91 Room#: 80 Admit Date#: 11/05/2017 Type: Inpatient Referring: Eldon Grimes NP Reading: Mulugeta Hill DO Furnace Builder: Nancy Dos Santos RDCS CC: Arley Harp MD Transthoracic Echocardiogram Indication: CAD, abnormal EKG. BP: 101/42 HR: 80 Rhythm: NSR with PVCs Findings History: HTN, DMII, A-fib, HLD, , CKD, PVD. Technical Comments: The study quality is fair. The study is technically limited due to poor parasternal windows. Completed at 1210. Left Ventricle: The left ventricular chamber size is normal. Mild concentric left ventricular hypertrophy is observed. Left ventricular systolic function is at the lower limits of normal. The estimated ejection fraction is 50-55%. Abnormal left ventricular diastolic function is observed. The left ventricular diastolic filling pattern is restrictive. The basal inferior, mid inferolateral, and mid inferior wall segments are hypokinetic (score 2). Overall wallmotion score index is 2.00 Left Atrium: The left atrium is moderately dilated. Right Ventricle: The right ventricular cavity size is normal. The right ventricular global systolic function is low normal. Right Atrium: The right atrium is moderately dilated. Aortic Valve: Moderate aortic leaflet calcification is visualized. Systolic excursion of the aortic valve cusps is reduced. There is no evidence of aortic regurgitation. There is moderate aortic stenosis. The mean gradient of the aortic valve is 11.61 mmHg. The peak instantaneous gradient of the aortic valve is 24.83 mmHg. The aortic valve area, by peak velocities, is calculated at 1 cm2. The aortic valve area, by VTI's, is calculated at 1 cm2. Highest aortic valve velocity was acquired with Pedoff in apical position. Mitral Valve: There is mitral annular calcification. The mitral valve leaflets are moderately thickened. Mild mitral leaflet calcification is visualized. There is moderate mitral regurgitation. There is no evidence of mitral stenosis. Tricuspid Valve: The tricuspid valve leaflets are normal. There is trace tricuspid regurgitation. Unable to estimate the right ventricular systolic pressure. There is no tricuspid stenosis. Pulmonic Valve: The pulmonic valve appears normal. There is trace to mild pulmonic regurgitation. There is no pulmonic stenosis. Pericardium: There is no significant pericardial effusion. Aorta: There is mild dilatation of the ascending aorta. The aortic arch is not well visualized. The aortic root is normal in size. Pulmonary Artery: The main pulmonary artery is not well visualized. Venous: The venous system is not well visualized. The inferior vena cava is not visualized. Conclusions The study is technically limited due to poor parasternal windows. The left ventricular chamber size is normal. Mild concentric left ventricular hypertrophy is observed. The estimated ejection fraction is 50-55%. The basal inferior, mid inferolateral, and mid inferior wall segments are hypokinetic (score 2). The left atrium is moderately dilated. The right ventricular cavity size is normal. The right ventricular global systolic function is low normal. There is moderate aortic stenosis. There is moderate mitral regurgitation. Unable to estimate the right ventricular systolic pressure. Compared to prior study from 03/2017, mitral regurgitation is worse Inferior wall motion abnormality correlates with prior stress test same month Measurements Name Value Normal Range RVIDd (AP) 2D 3.1 cm (0.9 - 2.6) RVDdMajor (2D) 4.5 cm (2.2 - 4.4) RAd ISD 4CH 5.7 cm (3.4 - 4.9) RA (A4C)W 4.7 cm (2.9 - 4.6) IVSd (2D) 1.1 cm (0.6 - 1) LVPWd (2D) 1.2 cm (0.6 - 1) LVIDd (2D) 5.2 cm (3.6 - 5.4) LVIDs (2D) 3.7 cm - LV FS (2D) 29 % (25 - 45) Aortic Annulus 2 cm (1.4 - 2.6) Ao root diameter (2D) 3.5 cm (2.1 - 3.5) Ascending Ao 3.9 cm (2.1 - 3.4) LA dimension (AP) 2D 4.4 cm (2.3 - 3.8) LAd ISD 4CH 5.5 cm (2.9 - 5.3) LA ISD 4CH W 4.6 cm (2.5 - 4.5) Name Value Normal Range LA ESV SP 4CH (A/L) 77 ml - LA ESV SP 2CH (A/L) 74 ml - LA ESV BP (A/L) 77 ml - LA ESV BP (A/L) index 40 ml/m2 - LA ESV SP 4CH (MOD) 75 ml - LA ESV SP 2CH (MOD) 72 ml - Name Value Normal Range MV E-wave Vmax 1.47 m/sec - MV deceleration time 164.9 msec - MV A-wave Vmax 0.53 m/sec - MV E:A ratio 2.77 ratio - LV septal e' Vmax 0.03 m/sec - LV lateral e' Vmax 0.04 m/sec - LV E:e' septal ratio 49 ratio - LV E:e' lateral ratio 36.75 ratio - Name Value Normal Range AV Vmax 2.5 m/sec - AV VTI 51 cm - AV peak gradient 24.83 mmHg - AV mean gradient 11.61 mmHg - LVOT diameter 2 cm - LVOT Vmax 0.76 m/sec - LVOT VTI 16.41 cm - LVOT peak gradient 2.34 mmHg - LVOT mean gradient 1.4 mmHg - DOI (VTI) 0.32 ratio - PANCHITO (continuity Vmax) 1 cm2 - PANCHITO (continuity VTI) 1 cm2 - CARIDAD Vmax 0.93 m/sec - Name Value Normal Range MV Vmax 1.5 m/sec - MV VTI 32.34 cm - MV peak gradient 9.13 mmHg - MV mean gradient 2.67 mmHg - MV PHT 56.8 msec - MR Vmax 3.86 m/sec - MR VTI 102.9 cm - MR flow (PISA) 80.73 ml/sec - MR ERO 0.21 cm2 - MR PISA radius 0.5 cm - MR alias Vmax 43 cm/sec - MVA (PHT) 3.8 cm2 - MVA (continuity VTI) 1.6 cm2 - Name Value Normal Range PV Vmax 1.08 m/sec - PV peak gradient 4.73 mmHg - Wallmotion BAS Not Seen BA Not Seen BAL Not Seen RICK Not Seen BI Hypokinetic BIS Not Seen MAS Not Seen MA Not Seen MAL Not Seen MIL Hypokinetic SD Hypokinetic MIS Not Seen Not Seen AA Not Seen AL Not Seen AI Not Seen APEX Not Seen
--- NOTE | 2017-11-05 13:33 | PN ---
Subjective Date of Service: 11/05/17 Interval History: No more SOB or chest discomfort. No BM since admission. Objective Active Medications: Acetaminophen (Tylenol Tab*) 650 mg PO Q4H PRN PRN Reason: FEVER/PAIN Amiodarone HCl (Cordarone Tab*) 100 mg PO MoWeFr@0900 [facility] Atorvastatin Calcium (Lipitor*) 80 mg PO QPM [facility] Dextrose (D50w Syringe 50 Ml*) 12.5 gm IV PUSH .FOR FS < 60 - SS PRN PRN Reason: FS < 60 Ceftriaxone Sodium 1 gm/ (Sodium Chloride) 50 mls @ 200 mls/hr IVPB Q24H [facility] Last Admin: 11/05/17 10:29 Dose: 200 mls/hr Sodium Chloride (Ns 0.9% 1000 Ml*) 1,000 mls @ 100 mls/hr IV PER RATE [facility] Stop: 11/05/17 15:29 Last Admin: 11/05/17 10:01 Dose: 100 mls/hr Doxycycline Hyclate 100 mg/ (Sodium Chloride) 250 mls @ 250 mls/hr IVPB Q12H [facility] Last Admin: 11/05/17 10:36 Dose: 250 mls/hr Sodium Chloride (Ns 0.9% 500 Ml*) 500 mls @ 50 mls/hr IV PER RATE [facility] Pantoprazole Sodium 80 mg/ (Sodium Chloride) 250 mls @ 25 mls/hr IVPB Q10H [facility] Last Admin: 11/05/17 12:19 Dose: 25 mls/hr Insulin Glargine (Lantus(*)) 12 units SUBCUT QAM [facility] Last Admin: 11/05/17 10:36 Dose: 12 unit Insulin Human Lispro (Humalog*) 0 units SUBCUT AC [facility] PRN Reason: Protocol Last Admin: 11/05/17 10:08 Dose: Not Given Isosorbide Mononitrate (Imdur Er Tab*) 30 mg PO DAILY [facility] Last Admin: 11/05/17 10:38 Dose: 30 mg Ondansetron HCl (Zofran 40 Mg Vial*) 4 mg IV Q6H PRN PRN Reason: NAUSEA Vital Signs - 8 hr 11/05/17 11/05/17 11/05/17 05:40 06:00 06:11 Temperature Pulse Rate 75 72 75 Respiratory 15 13 14 Rate Blood Pressure 129/55 124/51 (mmHg) O2 Sat by Pulse 95 96 93 Oximetry 11/05/17 11/05/17 11/05/17 06:16 06:39 07:25 Temperature 99.4 F 99.0 F 98.5 F Pulse Rate 74 81 73 Respiratory 16 20 20 Rate Blood Pressure 124/51 101/42 110/41 (mmHg) O2 Sat by Pulse 96 96 90 Oximetry 11/05/17 11/05/17 08:00 11:52 Temperature 98.0 F Pulse Rate 86 Respiratory 18 16 Rate Blood Pressure 105/38 (mmHg) O2 Sat by Pulse 89 Oximetry Oxygen Devices in Use Now: Nasal Cannula Appearance: Alert, partly up in bed. Neutral affect. Looks comfortable. Eyes: No Scleral Icterus Neck: NL Appearance and Movements; NL JVP, No Thyroid Enlargement, Masses Respiratory: Symmetrical Chest Expansion and Respiratory Effort, Clear to Percussion, - - scattered rhonchi Cardiovascular: RRR, No Edema, - - 2/6 systolic murmur LSB Abdominal: NL Sounds; No Tenderness; No Distention, No Hepatosplenomegaly, - Extremities: No Edema, No Clubbing, Cyanosis, - Skin: No Rash or Ulcers, No Nodules or Sclerosis, - Neurological: Alert and Oriented x 3, NL Sensation - Somewhat slow to respond Result Diagrams: 11/05/17 08:29 11/05/17 03:51 Microbiology and Other Data: Microbiology 11/05/17 05:18 Stool Occult Blood (SHORTY) - Final Stool Assess/Plan/Problems-Billing Assessment: - Patient Problems (1) Elevated troponin Current Visit: No Status: Acute Code(s): R79.89 - OTHER SPECIFIED ABNORMAL FINDINGS OF BLOOD CHEMISTRY SNOMED Code(s): 146453676 Comment: Chest "Uneasiness", resolved on 11/05. Echo reprot pending. (2) Type 2 diabetes mellitus Current Visit: No Status: Chronic Priority: High Comment: Continue Lantus and SS lispro. Resume sitagliptin. (3) Hypertension Current Visit: No Status: Acute Code(s): I10 - ESSENTIAL (PRIMARY) HYPERTENSION SNOMED Code(s): 18331180 Comment: Continue isosorbide, hold amlodipine, chlorthalidone. (4) Leukocytosis Current Visit: Yes Status: Acute Code(s): D72.829 - ELEVATED WHITE BLOOD CELL COUNT, UNSPECIFIED SNOMED Code(s): 008169738 Comment: Not clear if antibiotics of benefit here. Repeat CBC's ordered.
[2017-11-05] MEDS ORDERED: Sitagliptin (NF) 50 MG TAB PO SCH (14:00)
[2017-11-05 15:36] LABS: Hematocrit 24 % (42-52); Hemoglobin 7.8 g/dl (14.0-18.0); Mean Corpuscular HGB Conc 33 g/dl (31-36); Mean Corpuscular Hemoglobin 30 pg (27-31); Mean Corpuscular Volume 89 fL (80-94); Mean Platelet Volume 7.2 um3 (7.4-10.4); Platelet Count 249 10^3/ul (150-450); Red Blood Count 2.63 10^6/ul (4.0-5.4); Red Cell Distribution Width 14 % (10.5-15); White Blood Count 19.3 10^3/ul (3.5-10.8)
[2017-11-05 15:39] LABS: ABS Basophils 0 10^3/ul (0-0.2); ABS Eosinophils 0 10^3/ul (0-0.6); ABS Lymphocytes 0.2 10^3/ul (1.0-4.8); ABS Monocytes 1.8 10^3/ul (0-0.8); ABS Neutrophils 17.2 10^3/ul (1.5-7.7); ABS Nucleated RBC 0 10^3/ul; Eosinophil % 0 % (0-6); Lymphocyte % 1.3 % (25-47); Nucleated Red Blood Cells % 0.2
[2017-11-05 15:51] LABS: Urine Appearance Clear; Urine Blood Negative (Negative); Urine Color Yellow; Urine Ketones Negative (Negative); Urine Protein 1+(30 mg/dL) (Negative); Urine Specific Gravity 1.015 (1.010-1.030); Urine Urobilinogen Negative (Negative)
--- NOTE | 2017-11-05 16:02 | HP ---
AMENDED REPORT NOW INCLUDES COSIGNER DESIGNATION - ESIGNED BEFORE ADJUSTMENT CC: Dr. Harp; Dr. Hill HISTORY AND PHYSICAL: DATE OF ADMISSION: 11/05/17 PRIMARY CARE PROVIDER: Dr. Harp ATTENDING PHYSICIAN WHILE IN THE HOSPITAL: Hanna Amaral MD * (report dictated by Eldon Grimes NP) PRIMARY BEAM SEALER: Dr. Hill. CHIEF COMPLAINT: 1. Chest pain. 2. Shortness of breath. HISTORY OF PRESENT ILLNESS: Mr. Méndez is an 82-year-old mal patient, he has a history of CAD, CHF, hyperlipidemia, hypertension, diabetes, AFib paroxysmal, history of CKD, history of aortic stenosis, history of peripheral arterial disease as well. He is coming into our ER today stating that in the last couple days he has been having intermittent chest pain. He did not describe it as exertional, he does state that at times it is worse with taking a deep breath. He has sharp, stabbing pain in the left side. He did have some pressure with the pain, but he said it really has not been exertional. He had noticed though with exertion he is getting pretty short of breath. He denied having any fevers or chills. No recent sick contacts. He states he has been having the clear his throat more at night and had been having some phlegm that he has not been able to bring up the phlegm. He denies any change in medications. He has been taking his medications as prescribed. He does state that his stools are little bit darker, but denied them being tarry. He denied having any abdominal pain or any nausea or vomiting and no recent falls or passing out or syncope. He was concerned though because the chest pain was getting worse tonight, it was sharp, left side, worse with deep breath. He has been having worsening breathing sharp as well. He denied feeling congested. Denied having any cough or cold symptoms. Again, no recent sick contacts, but because of his chest pain though, he was concerned given his history and he decided to come into the ER today to be evaluated. In evaluation, it was noted that his INR was 7, appeared that he had a pneumonia. In addition to this, it did appear that he had an elevated white count and his H and H was lower than previous baseline. Because of these findings, we were asked to evaluate for admission. PAST MEDICAL HISTORY: Significant for, 1. Diabetes. 2. Hypertension. 3. Hyperlipidemia. 4. AFib. 5. PAD. 6. CKD. 7. Aortic stenosis. 8. [place]. 9. CAD. 10. CHF. Last known EF was 55 to 60% PAST SURGICAL HISTORY: 1. 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 2. He has had bilateral rotator cuff repair. 3. He had left knee arthroscopy. HOME MEDICATIONS: According to the list he provided include, 1. Lipitor 80 mg daily. 2. Norvasc 7.5 mg daily. 3. Januvia 50 mg daily. 4. Multivitamin 1 tablet daily. 5. Imdur 30 mg daily. 6. Lantus 12 units subcu q.a.m. according to his list 7. Chlorthalidone 25 mg p.o. q.p.m. 8. Amiodarone 100 mg on Thursday, Thursday, Thursday. 9. Coumadin 4 mg daily. 10. Calcium carbonate 1 tablet daily. ALLERGIES TO MEDICATIONS: Include LASIX, TRAMADOL, KATHRYN INHIBITORS, ANGIOTENSIN RECEPTOR BLOCKERS, ARBS, and ALDACTONE. FAMILY HISTORY: Unknown as he is adopted. SOCIAL HISTORY: He does not smoke, does not drink. Surrogate decision maker is his and daughter. REVIEW OF SYSTEMS: There is no documented fever. He is denying any significant weight change. There is no double vision. He denies having any ear discharge. There is no rhinorrhea. There is no sore throat. No thyroid enlargement. He does admit to chest pain per HPI. There is no orthopnea, dyspnea on exertion, but there is no abdominal pain. There was no nausea, no vomiting. There is no dysuria, no frequency. No seizure. No loss of consciousness. No pruritus and no skin ulcerations. Review of 14 systems completed, all others negative. PHYSICAL EXAMINATION GENERAL: At this time, Mr. Méndez is an 82-year-old male patient. He is sitting in the ED stretcher. He does not appear to be in any acute distress. VITAL SIGNS: Blood pressure 132/49, pulse 79, respirations 13, O2 sat 96%. He is now on 3 L, and his temperature was 98.3. HEENT: Head is atraumatic, normocephalic. Eyes: EOMs are intact. Sclerae anicteric, not pale. Throat: Oral mucosa appears to be dry. No oropharyngeal erythema. NECK: Supple. LUNGS: Again, he did have some slight wheeze and crackle on that right side, but he could diaphragmatic expansion. HEART: Sounds S1, S2. Regular rate and rhythm. He does have a grade 2/3 systolic murmur in the aortic listening area. ABDOMEN: Soft, it was flat, it was nontender. Bowel sounds were present. EXTREMITIES: Pulses were 2+ throughout. He has BKA to the right. He does have 5/5 strength. No peripheral edema. No pitting edema. NEUROLOGIC: He is awake, alert, oriented x3. Tongue is midline. No gross focal deficits. SKIN: Intact. DIAGNOSTIC STUDIES/LAB DATA: Labs today are revealing WBC of 17.6, RBC of 2.92 , hemoglobin of 8.7, hematocrit of 26. His previous hemoglobin was noted to be 9.7 to 10. His platelet count was 242, INR is 7.43, PTT is 56.4. Sodium is 133 , potassium is 3.4, chloride 97, bicarb of 26, BUN 84, creatinine 1.85. We looked back to his previous creatinine, they run about 1.6, 1.5 that is elevated. Glucose is 295, calcium 9.1, mag 1.9, total bili 0.7, AST 2.9, ALT 32 , alk phos 51, CK 65, troponin 0.06, which is near to his baseline. BNP of 402 , albumin was 3.7. His initial EKG at 3 in the morning shows a significant amount of ST depression in V4,5, and 6 along with lead 2 and aVF. I did repeat the EKG, the depression is still present, it looks slightly improved. On the repeat EKG, he does have PVC. The previous EKG do not elicit this. The ST depression is not new. He did have a chest x-ray obtained today, when I reviewed it, it does look he has got an infiltrate in the right base. Again, in old medical records, he had an echo with EF was 55 to 60%. Old medical records reviewed. ASSESSMENT AND PLAN: Mr. Méndez is an 82-year-old male patient coming into the ED today with complaints of chest discomfort. On evaluation, found to have pneumonia with EKG change. He will be admitted under inpatient status for: 1. Chest pain. Again, differential is broad here. He does have significant risk factors for coronary artery disease. He had an abnormal stress test in March of last year. He is chest pain free now. He does have the EKG changes , but it does look like he has pneumonia. He has got the elevated white count. The chest pain has been going on for 3 days. His troponin is at his baseline. My plan would be to repeat the serial EKGs, echo, serial cardiac enzymes. If the enzymes increase or the EKG gets worse or if there are any changes on the echo, I will get Cardiology involved. I think this chest pain is probably related to pneumonia. He has got the white count. He is showing early signs on SIRS. I would like to panculture him, get Legionella antigen, Strep pneumo antigen, and if he is able to, we will try to get a sputum culture on the patient. I will put him on ceftriaxone and doxycycline. Place the patient on telemetry and follow him closely. He does have ekg changes as well I believe this is secondary to demand ischemia due to infection and possible GI bleed. 2. Anemia. Again, I am concerned that he may have a possible bleeding because of the supratherapeutic INR. My plan will be to give him 10 of vitamin K, serial H and Hs, 2 IVs, stool guaiac. If that is positive I will probably get GI involved and we will follow serial H and Hs and transfuse as indicated. If he falls below 8, then I would certainly give him 1 unit of blood and I am again going to follow the serial H and Hs. 3. Chronic kidney disease with acute renal failure. At this point, it looks like it is prerenal, I will get a FENa. In addition to this, I will hydrate the patient and continue to follow the BUN and creatinine. 4. Diabetes. He will be placed on Lispro sliding scale. 5. Hypertension. I am going to hold his meds with the exception of his Imdur and acute illness. We can restart when he is more stable. 6. Hyperlipidemia. Continue statin therapy. 7. AFib. He is in a sinus rhythm. At this point, we will continue with amiodarone as prescribed. Holding his warfarin. 8. Supratherapeutic INR. Etiology is unclear as to why this happened. He has had no new medications. He has had decreased intake, certainly could be contributing. My plan would be to give him 10 of vitamin K, repeat the INR, and follow. 9. Peripheral arterial disease. In the setting of possible internal bleeding, possibly GI with the decreasing H and H, we are going to hold his aspirin, but I will continue his statin therapy. 10. Aortic stenosis. We are repeating the echo. We will follow. We will try to keep him hydrated. 11. Coronary artery disease. Continue him on his Imdur and statin therapy. 12. Congestive heart failure, the history of. He does not appear to be in failure at this point , he actually appears to be on the dry side his bun and creatinine are both elevated. I will put him on normal saline at 100 an hour. 13. Code status. Full code. 14. DVT prophylaxis. Because of the supratherapeutic INR and the fact that he does have a decreasing H and H, I am going to just put him on SCDs. 15. Code status. Full code. 16. Fluids, electrolytes, and nutrition. He can have a clear liquid diet. 17. Hypokalemia. We will replace this with p.o. potassium. 18. Elevated troponin. Again, probably this is at his baseline. I am going to trend these. Probably it is felt he has mildly elevated in the setting of the acute illness. In addition of this, some demand ischemia, and also he does have chronic kidney disease, which can cause an elevation. So, we will follow this. TIME SPENT: On admission was 90 minutes, greater than half the time spent face- to- face with the patient obtaining my history and physical, other half time spent going over the plan of care with the patient and implementing plan of care. I did discuss the plan of care with my attending, Dr. Amaral; she is in agreement. ELDON GRIMES, NEENA [id number]/[facility] #: [id number] KUSUM
[2017-11-05] MEDS ORDERED: ETHACRYNIC ACID 25 MG PO ONE (16:44)
--- NOTE | 2017-11-05 16:50 | CONSULT ---
Subjective Date of Service: 11/05/17 Interval History: Admission Date: 11/05/17 Consult date 11/05/2017 Service: Hospitalist PMD: Dr. Harp CC: Melena, elevated blood glucoses, pleuritic chest pain, chest pressure, dyspnea Reason for consult: MD, CHF HISTORY OF PRESENT ILLNESS: Mr. Méndez is an 82-year-old man known to me with a history as below. 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 He has noticed generalized leg weakness and fatigue for a week. His glucoses have been elevated the last few days without explanation. He has had several days of melena. He is admitted now with chest discomfort and dyspnea the last several days. There are two forms of chest discomfort. One is pleuritic and it is not angina. The other is chest pressure and it is angina. He also compatins of dyspnea.. He ruled in for ACS with rising troponin and ischemic EKG changes. An echocardiogram shows LVEF of 50-55% with inferior/inferolateral wall hypokinesis, moderate MR and moderate . His hemoglobin continues to trend downward. He has leukocytosis with a left shift and no fever. Clinical presentation is likely for an infection and the pleuritic pain may be consistent with pneumonia that triggered a supratherapeutic INR and UGIB with a type 2 MD and CHF. I examined his left leg with Dr. Ellison. He has a blister and superficial wound on his johnson. He complains of mild chest pressure and dyspnea at rest. He has no pleuritic pain. PAST MEDICAL HISTORY: Significant for, 1. Diabetes. 2. Hypertension. 3. Hyperlipidemia. 4. AFib. 5. PAD. 6. CKD/HFpEF 7. Moderate Aortic stenosis. 8. 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 2. He has had bilateral rotator cuff repair. 3. He had left knee arthroscopy. ALLERGIES TO MEDICATIONS: Include LASIX (rash) TRAMADOL, KATHRYN INHIBITORS, ANGIOTENSIN RECEPTOR BLOCKERS, ARBS (hyperkalemia) FAMILY HISTORY: Unknown as he is adopted. SOCIAL HISTORY: He does not smoke, does not drink. Surrogate decision maker is his and daughter. Medications Active Medications: Acetaminophen (Tylenol Tab*) 650 mg PO Q4H PRN PRN Reason: FEVER/PAIN Amiodarone HCl (Cordarone Tab*) 100 mg PO [id number] [facility] Atorvastatin Calcium (Lipitor*) 80 mg PO QPM [facility] Dextrose (D50w Syringe 50 Ml*) 12.5 gm IV PUSH .FOR FS < 60 - SS PRN PRN Reason: FS < 60 Ceftriaxone Sodium 1 gm/ (Sodium Chloride) 50 mls @ 200 mls/hr IVPB Q24H [facility] Last Admin: 11/05/17 10:29 Dose: 200 mls/hr Doxycycline Hyclate 100 mg/ (Sodium Chloride) 250 mls @ 250 mls/hr IVPB Q12H [facility] Last Admin: 11/05/17 10:36 Dose: 250 mls/hr Pantoprazole Sodium 80 mg/ (Sodium Chloride) 250 mls @ 25 mls/hr IVPB Q10H [facility] Last Admin: 11/05/17 12:19 Dose: 25 mls/hr Insulin Glargine (Lantus(*)) 12 units SUBCUT QAM [facility] Last Admin: 11/05/17 10:36 Dose: 12 unit Insulin Human Lispro (Humalog*) 0 units SUBCUT AC [facility] PRN Reason: Protocol Last Admin: 11/05/17 13:39 Dose: 5 unit Isosorbide Mononitrate (Imdur Er Tab*) 30 mg PO DAILY [facility] Last Admin: 11/05/17 10:38 Dose: 30 mg Ondansetron HCl (Zofran 40 Mg Vial*) 4 mg IV Q6H PRN PRN Reason: NAUSEA Sitagliptin Phosphate (Januvia (Nf)) 50 mg PO DAILY [facility] Last Admin: 11/05/17 13:42 Dose: Not Given Home Medications: Calcium Carbonate/Vitamin D3 [Calcium 600-Vit D3 200 Tablet] 1 tab PO QAM [History Confirmed 11/05/17] Multivitamins/Minerals TAB* [Thera M Plus TAB*] 1 tab PO DAILY 11/05/12 [ History Confirmed 11/05/17] Atorvastatin* [Lipitor 20 MG*] 80 mg PO QPM 10/08/15 [History Confirmed 11/05/17 ] Insulin Glargine [Lantus Solostar] 14 units SUBCUT QAM 11/12/15 [History Confirmed 11/05/17] Amiodarone HCl [Amiodarone HCl-] 100 mg PO SEE INSTRUCTIONS 08/04/16 [History Confirmed 11/05/17] Aspirin 81 mg CHEW TAB* 81 mg PO DAILY 08/04/16 [History Confirmed 11/05/17] Chlorthalidone TAB* [Hygroton TAB*] 25 mg PO QPM 08/04/16 [History Confirmed 12/16] Warfarin TAB(*) [Coumadin TAB(*)] 4 mg PO DAILY 08/11/16 [History Confirmed 12/16] Isosorbide Mononitrate ER TAB* [Imdur ER TAB*] 30 mg PO DAILY 08/12/16 [History Confirmed 11/05/17] Amlodipine Besylate [Norvasc 5 mg tab] 7.5 mg PO DAILY 03/26/17 [History Confirmed 11/05/17] Sitagliptin (NF) [Januvia (NF)] 50 mg PO DAILY 11/05/17 [History Confirmed 11/05] Review of Systems - Measurements Intake and Output: Intake and Output Last 24 Hours 11/03/17 11/04/17 11/05/17 11/06/17 06:59 06:59 06:59 06:59 Intake Total 100 2383 Balance 100 2383 Weight 167 lb Intake: IV Fluids 100 623 NS 623 IVPB 300 Ceftriaxone 50 Doxy 250 Oral 0 1460 Other: # Bowel Movements 0 - Review of Systems Constitutional Symptoms: Positive: Weakness, Fatigue Dermatology: Positive: Rash, Skin Lesions HEENT: Negative: Change in Hearing, Vertigo Eyes: Negative: Change in Vision, Double Vision Thyroid: Negative: Cold Intolerance, Heat Intolerance, Sweatiness, Tremor, Frequent Defecation, Constipation, Palpitations, Primary Hypothyroidism, Primary Hyperthyroidism Pulmonary: Positive: Cough, Respiratory Distress, Shortness of Breath, Exercise Intolerance Negative: Sputum, Hemoptysis, Wheezing, COPD, Asthma, Home Oxygen Cardiology: Positive: Chest Pain, Shortness of Breath, Peripheral Vascular Dis Negative: Palpitations, Swelling of Ankles, Edema, Faintness, Syncope, Claudication, Paroxysmal Nocturnal Dyspnea, Orthopnea Gastroenterology: Positive: Melena Negative: Abdominal Pain, Nausea, Vomiting, Anorexia, Indigestion, Difficulty Swallowing, Heartburn, Constipation, Diarrhea, Blood in Stools, Haematemesis Genital - Urinary: Negative: Dysuria, Hematuria Musculoskeletal: Negative: Joint Pain, Joint Stiffness Endocrinology: Positive: Diabetes, Hyperglycemia Negative: Gynecomastia, Pituitary Disease Hematologic/Lymphatic: Positive: Anemia, Use of Anticoagulant, Use of Antiplatelet Drugs Negative: Hx Leukemia, Hx Lymphoma Neurology: Negative: Change in Speech, Change in Sphincter Function Psychiatry: Negative: Depressed Mood, Adhedonia, Unusual Anxiety, Suicidal Ideation Allergic/Immunologic: Negative: Hx HIV, Immunocompromise Review of Systems Statement: All other review of systems negative, unless stated above. Objective Vital Signs: Temp Pulse Resp BP Pulse Ox 98.3 F 79 16 119/47 92 11/05/17 15:21 11/05/17 15:21 11/05/17 15:21 11/05/17 15:21 11/05/17 15:21 Oxygen Devices in Use Now: Nasal Cannula Appearance: very pleasant, somewhat frail Ears/Nose/Mouth/Throat: Clear Oropharnyx Neck: Trachea Midline, - - uncertain jvp Respiratory: - - mild increased work of breathing and mild tachypnea, b/l rales Cardiovascular: RRR, - - 4/6 systolic murmur Abdominal: NL Sounds; No Tenderness; No Distention Extremities: No Edema Skin: - - s/p R leg amputation, left leg as above Laboratory Results: 11/05/17 15:30 INR (Anticoag Therapy) 8.78 (0.77-1.02) H* 11/05/17 09:06 APTT 56.4 seconds (26.0-36.3) H 11/05/17 03:51 Total Bilirubin 0.70 mg/dL (0.2-1.0) 11/05/17 03:51 AST 29 U/L (13-39) 11/05/17 03:51 ALT 32 U/L (7-52) 11/05/17 03:51 Alkaline Phosphatase 51 U/L (34-104) 11/05/17 03:51 B-Natriuretic Peptide 402 pg/mL (-100) H 11/05/17 03:51 Total Protein 6.7 g/dL (6.4-8.9) 11/05/17 03:51 Albumin 3.7 g/dL (3.2-5.2) 11/05/17 03:51 Globulin 3.0 g/dL (2-4) 11/05/17 03:51 Albumin/Globulin Ratio 1.2 (1-3) 11/05/17 03:51 11/05/17 11/05/17 11/05/17 06:46 09:06 15:30 Troponin I 0.27 H* 0.67 H* 1.64 H* EKG Data: 03/2017 stress test I reviewed: Small to moderate sized inferior infarct with sophy-infarct ischemia ekg 11/05/2017: NSR 73 bpm, 1 avb, pvc, [address] depression v3- v6 slightly improved on repeat . Much more pronounced than minimal st depression seen prior 04/2017, minimal inferior ST depression unchanged Assessment/Plan Mr. Méndez is an 82-year-old man admitted with suspected pneumonia triggering hyperglycemia, supratherapeutic INR with UGIB, anemia and type 2 MD with acutely decompensated HFpEF/CKD volume overload. - Hold aspirin until ok to restart with GI - Continue statin - Agree with d/c of warfarin and giving vitamin K, trend INR's - Transfuse to hemoglobin 9 or greater. Will use high dose chlorthalidone/ aldactone for diuretic. No ethacrynic acid on formulary. Has rash with lasix prior. I think if needed to avoid intubation could try IV bumex or torsemide as a last resort - Would trend ck-mb to roughly estimate infarct size and not troponin given his CKD - Hold imdur and norvasc and start nitro gtt for symptom improvement - Ok for PRN IV morphine (ordered) - Agree with PPI gtt and GI consult - Antibiotics per primary service - Reviewed diagnosis and plan of care with patient and daughter Sia (by phone) - Will follow Thank you for allowing me to participate in the cardiovascular care of this patient. Please do not hesitate to contact me if there are questions or concerns.
[2017-11-05] MEDS ORDERED: Spironolactone TAB* 25 MG PO ONE (17:07)
--- NOTE | 2017-11-05 17:07 | RAD ---
Indication: Shortness of breath. Single frontal view of the chest performed at 1641 hours was reviewed. Comparison is made with previous exam dated earlier the same day. There is progressive left basilar airspace disease consistent with pulmonary edema worse on the left than on the right. Left pleural effusion is noted. IMPRESSION: PROGRESSIVE INTERSTITIAL EDEMA AND CHF.
[2017-11-05] MEDS ORDERED: Chlorthalidone TAB* 50 MG PO ONE (17:08)
[2017-11-05] MEDS: Atorvastatin* 80 MG TAB PO SCH (17:35)
[2017-11-05] MEDS ORDERED: Morphine VIAL* 4 MG/ML VIAL (1 ml vial) IV PRN (17:52)
[2017-11-05] MEDS ORDERED: nitroGLYCERIN DRIP* 25,000 MCG/250 ML BTL IV SCH (18:00)
[2017-11-05] MEDS: Bumetanide IV* 0.25 MG/ML 4 ML VIAL SLOW PUSH ONE (19:57)
[2017-11-06 02:57] LABS: Hematocrit 23 % (42-52); Hemoglobin 7.6 g/dl (14.0-18.0); Mean Corpuscular HGB Conc 33 g/dl (31-36); Mean Corpuscular Hemoglobin 30 pg (27-31); Mean Corpuscular Volume 90 fL (80-94); Mean Platelet Volume 8.3 um3 (7.4-10.4); Platelet Count 219 10^3/ul (150-450); Red Blood Count 2.55 10^6/ul (4.0-5.4); Red Cell Distribution Width 13 % (10.5-15); White Blood Count 18.1 10^3/ul (3.5-10.8)
[2017-11-06 02:59] LABS: ABS Basophils 0 10^3/ul (0-0.2); ABS Eosinophils 0 10^3/ul (0-0.6); ABS Lymphocytes 0.3 10^3/ul (1.0-4.8); ABS Monocytes 1.8 10^3/ul (0-0.8); ABS Nucleated RBC 0 10^3/ul; Eosinophil % 0 % (0-6); Lymphocyte % 1.5 % (25-47); Nucleated Red Blood Cells % 0.1
--- NOTE | 2017-11-06 04:35 | CONS ---
CC: Dr. Amaral; Dr. Harp * GASTROENTEROLOGY CONSULTATION NOTE: DATE OF CONSULT: 11/05/17 PRIMARY CARE PROVIDER: Dr. Harp. ATTENDING PHYSICIAN: Dr. Hanna Amaral. REASON FOR CONSULT: Melena and anemia. HISTORY OF PRESENT ILLNESS: Mr. Méndez is a very pleasant 82-year-old gentleman who presented to [facility] ER with complaints of worsening chest pain and shortness of breath. He has a history of multiple comorbidities including congestive heart failure; hyperlipidemia; hypertension; diabetes; coronary artery disease; paroxysmal atrial fibrillation, on Coumadin; chronic kidney disease; moderate aortic stenosis; and peripheral artery disease, status post BKA. He was admitted to the emergency room for a cardiac workup. His primary college or university faculty member is Dr. Hill. He was noted to have elevated troponins on admission and while admitted in the hospital, has been having several cardiac procedures in order to determine the etiology. Today, he was noted to have 1 episode of melenic bowel movement for which Gastroenterology was consulted for further evaluation. He was noted to also have a supratherapeutic INR at 8.78 for which he has been given vitamin K and FFP. He denies history of NSAID use, but is currently on aspirin as well as Coumadin. He denies prior endoscopies including colonoscopies. Denies family history of colon cancer. He denies abdominal pain, nausea, vomiting. Admits to a good appetite. Denies any recent change in bowel habits and admits to a regular bowel movement daily. PAST MEDICAL HISTORY: Diabetes; paroxysmal atrial fibrillation; hyperlipidemia ; hypertension; peripheral artery disease, status post right BKA; chronic kidney disease; moderate aortic stenosis; previous history of MT; coronary artery disease; and history of congestive heart failure. PAST SURGICAL HISTORY: 1. 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 2. Bilateral rotator cuff repair. 3. Left knee arthroscopy. HOME MEDICATIONS: 1. Lipitor. 2. Norvasc. 3. Januvia. 4. Multivitamin. 5. Imdur. 6. Lantus. 7. Chlorthalidone. 8. Amiodarone. 9. Coumadin. 10. Calcium carbonate. ALLERGIES TO MEDICATIONS: Include LASIX, TRAMADOL, KATHRYN INHIBITORS, ANGIOTENSIN RECEPTOR BLOCKERS, ARBS, and ALDACTONE. FAMILY HISTORY: He is adopted, thus is unknown. SOCIAL HISTORY: He denies any tobacco, illicit or alcohol use. REVIEW OF SYSTEMS: Review of systems on a 14-point scale has been reviewed. All pertinent positives and negatives have been noted above in the HPI. PHYSICAL EXAM: Vital Signs: Temperature 98.3, pulse 79, respirations 16, oxygenation 92% on 3 L nasal cannula, blood pressure 119/47. Generally, the patient is alert and oriented x3, in no acute distress, sitting in the bed. HEENT: Normocephalic, atraumatic. Extraocular muscles intact. Anicteric sclerae bilaterally. Cardiovascular: Regular rate and rhythm. Pulmonary: There are some decreased breath sounds in the right lower lung, otherwise is clear to auscultation bilaterally. No wheezes, rhonchi or rales. Abdomen: Positive bowel sounds. Soft, nontender, nondistended. There is some ecchymosis present due to subcutaneous Lantus injections. Bowel sounds are present. Extremities: Right BKA with prosthetic. No clubbing, cyanosis or edema in the other lower extremity. Neurological Exam: No gross focal deficits are appreciated. DIAGNOSTIC STUDIES/LAB DATA: WBC is 19.3, hemoglobin 7.8, hematocrit 24, MCV 89 , platelets 249. INR 8.78. Sodium 133, potassium 3.4, chloride 97, CO2 26, anion gap 10, BUN 84, creatinine 1.85, calcium 9.1, magnesium 1.9. Total bilirubin 0.7, AST 29, ALT 32, alkaline phosphatase 51, total creatine kinase 65. Troponin 1.64. Beta-natriuretic peptide 402. Total protein 6.7, albumin 3.7. ASSESSMENT AND PLAN: Mr. Méndez is a very pleasant 82-year-old gentleman with multiple comorbidities including peripheral artery disease; coronary artery disease with previous myocardial infarction; diabetes; paroxysmal atrial fibrillation, on Coumadin; chronic kidney disease; moderate aortic stenosis; hypertension; and hyperlipidemia, with a history of congestive heart failure, who presented to [facility] with chest pain and shortness of breath and was found to have elevated troponin suggestive of a recent myocardial infarction as well as iatrogenic coagulopathy. He was admitted for further evaluation. Cardiology was consulted and cardiac workup was in progress throughout the day today. He was noted to have 1 episode of a melenic bowel movement. He is on Coumadin therapy along with a baby aspirin as an outpatient. He denies any [id number] NSAID use. He also denies prior endoscopies and colonoscopies. At this time, he is hemodynamically stable. Denies any current gastrointestinal symptoms. Given the fact that he has never had a colonoscopy and endoscopy, he was noted to be anemic on admission with a hemoglobin of 8.7 and after his episode of melena, his hemoglobin dropped to 7.8. Protonix drip was initiated for possible upper gastrointestinal bleeding. Again, he is currently hemodynamically stable. He should have an upper endoscopy to rule out peptic ulcer disease; however, given his recent elevation in troponins, would recommend cardiac clearance prior to attempting an upper endoscopy. We will continue to follow the patient closely and maintain him on a clear liquid diet for now in case an emergent endoscopy needs to be performed. We will also continue to monitor the patient's hemoglobin and we would recommend at least maintaining a hemoglobin of above 8 given his significant cardiac disease. Further recommendations will be provided as the patient's clinical course progresses. Case was discussed with Dr. Ellison. We will continue to follow the patient closely and make recommendations as needed. Thank you, Dr. Amaral, for allowing us to participate in the care of your patient. If you should have any further questions or concerns, please do not hesitate to contact us. [id number]/[facility] #: [id number] KUSUM
[2017-11-06 05:55] LABS: Hematocrit 23 % (42-52); Hemoglobin 7.6 g/dl (14.0-18.0); Mean Corpuscular HGB Conc 33 g/dl (31-36); Mean Corpuscular Hemoglobin 29 pg (27-31); Mean Corpuscular Volume 89 fL (80-94); Mean Platelet Volume 7.2 um3 (7.4-10.4); Platelet Count 213 10^3/ul (150-450); Red Blood Count 2.57 10^6/ul (4.0-5.4); Red Cell Distribution Width 14 % (10.5-15); White Blood Count 16.3 10^3/ul (3.5-10.8)
[2017-11-06 06:19] LABS: EGFR Non-African American 37.2 (>60)
[2017-11-06] MEDS: cefTRIAXone(*) 1 GM in NS 0.9% 50 ML* 50 ML IVPB SCH (06:30)
[2017-11-06 06:32] LABS: ABS Basophils 0 10^3/ul (0-0.2); ABS Eosinophils 0 10^3/ul (0-0.6); ABS Lymphocytes 0.5 10^3/ul (1.0-4.8); ABS Monocytes 1.6 10^3/ul (0-0.8); ABS Neutrophils 14.2 10^3/ul (1.5-7.7); ABS Nucleated RBC 0 10^3/ul; Eosinophil % 0 % (0-6); Lymphocyte % 2.8 % (25-47); Nucleated Red Blood Cells % 0
[2017-11-06] MEDS: Amiodarone TAB* 200 MG PO SCH (07:52)
[2017-11-06] MEDS: Isosorbide Mononitrate ER TAB* 30 MG PO SCH (07:52)
[2017-11-06] MEDS: Insulin LISPRO* 1 UNITS UNIT SUBCUT SCH ×3 (07:53→18:52)
[2017-11-06] MEDS: Insulin GLARGINE(*) 1 UNITS UNIT SUBCUT SCH (07:54)
[2017-11-06] MEDS ORDERED: Spironolactone TAB* 25 MG PO ONE (08:39)
[2017-11-06] MEDS ORDERED: Chlorthalidone TAB* 50 MG PO ONE (08:39)
--- NOTE | 2017-11-06 09:00 | PN ---
Subjective Date of Service: 11/06/17 Interval History: Last BM early yesterday, was dark black. No more chest discomfort. Less SOB. Objective Active Medications: Acetaminophen (Tylenol Tab*) 650 mg PO Q4H PRN PRN Reason: FEVER/PAIN Amiodarone HCl (Cordarone Tab*) 100 mg PO MoWeFr@0900 [facility] Last Admin: 11/06/17 07:52 Dose: 100 mg Aspirin (Aspirin 81 Mg Chew Tab*) 81 mg PO DAILY [facility] Atorvastatin Calcium (Lipitor*) 80 mg PO QPM [facility] Last Admin: 11/05/17 17:35 Dose: 80 mg Dextrose (D50w Syringe 50 Ml*) 12.5 gm IV PUSH .FOR FS < 60 - SS PRN PRN Reason: FS < 60 Ceftriaxone Sodium 1 gm/ (Sodium Chloride) 50 mls @ 200 mls/hr IVPB Q24H [facility] Last Admin: 11/06/17 06:30 Dose: 200 mls/hr Pantoprazole Sodium 80 mg/ (Sodium Chloride) 250 mls @ 25 mls/hr IVPB Q10H [facility] Last Admin: 11/05/17 23:49 Dose: 25 mls/hr Nitroglycerin/Dextrose (Nitroglycerin Drip*) 25,000 mcg in 250 mls @ 3 mls/hr IV .(Initial Rate) [facility]; 5 MCG/MIN PRN Reason: Protocol Last Admin: 11/05/17 18:10 Dose: 3 mls/hr Doxycycline Hyclate 100 mg/ (Sodium Chloride) 250 mls @ 250 mls/hr IVPB 0730, 1930 [facility] Insulin Glargine (Lantus(*)) 12 units SUBCUT QAM [facility] Last Admin: 11/06/17 07:54 Dose: 12 unit Insulin Human Lispro (Humalog*) 0 units SUBCUT AC [facility] PRN Reason: Protocol Last Admin: 11/06/17 07:53 Dose: 2 unit Isosorbide Mononitrate (Imdur Er Tab*) 30 mg PO DAILY [facility] Last Admin: 11/06/17 07:52 Dose: 30 mg Morphine Sulfate (Morphine Vial*) 2 mg IV Q4H PRN PRN Reason: PAIN - MILD Ondansetron HCl (Zofran 40 Mg Vial*) 4 mg IV Q6H PRN PRN Reason: NAUSEA Potassium Chloride (Klor Con Er Tab*) 20 meq PO Q2H JACK Stop: 11/06/17 16:00 Sitagliptin Phosphate (Januvia (Nf)) 50 mg PO DAILY [facility] Vital Signs - 8 hr 11/06/17 11/06/17 11/06/17 01:00 01:26 01:31 Temperature Pulse Rate 73 91 Respiratory 16 20 Rate Blood Pressure 113/59 97/66 (mmHg) O2 Sat by Pulse 95 92 91 Oximetry 11/06/17 11/06/17 11/06/17 02:00 02:30 03:00 Temperature Pulse Rate 71 66 67 Respiratory 18 16 15 Rate Blood Pressure 126/53 115/51 118/51 (mmHg) O2 Sat by Pulse 98 99 99 Oximetry 11/06/17 11/06/17 11/06/17 03:30 04:00 04:30 Temperature Pulse Rate 69 67 71 Respiratory 16 16 15 Rate Blood Pressure 116/51 120/52 115/51 (mmHg) O2 Sat by Pulse 99 98 97 Oximetry 11/06/17 11/06/17 11/06/17 05:00 05:30 06:00 Temperature Pulse Rate 72 70 68 Respiratory 16 17 18 Rate Blood Pressure 120/60 114/55 117/59 (mmHg) O2 Sat by Pulse 99 98 98 Oximetry 11/06/17 11/06/17 11/06/17 06:30 07:00 07:30 Temperature Pulse Rate 67 69 65 Respiratory 16 15 18 Rate Blood Pressure 119/53 118/66 118/55 (mmHg) O2 Sat by Pulse 100 99 99 Oximetry 11/06/17 11/06/17 11/06/17 07:35 08:00 08:22 Temperature 98.6 F Pulse Rate 71 Respiratory 22 Rate Blood Pressure 113/54 (mmHg) O2 Sat by Pulse 96 98 Oximetry Oxygen Devices in Use Now: High Flow Nasal Cannula, OxyMask Appearance: Alert, partly up in ICU bed. In good spirits. Looks comfortable. Eyes: No Scleral Icterus Respiratory: Symmetrical Chest Expansion and Respiratory Effort, Clear to Auscultation, Clear to Percussion Cardiovascular: RRR, No Edema - 3/6 systolic murmur R > L Abdominal: NL Sounds; No Tenderness; No Distention, No Hepatosplenomegaly, - Extremities: No Edema, No Clubbing, Cyanosis, - Skin: No Nodules or Sclerosis, - - L leg pretibial eschar and nearby shallow ulcer with no surrounding ulceration. Neurological: Alert and Oriented x 3, NL Sensation Result Diagrams: 11/06/17 05:47 11/06/17 05:47 Microbiology and Other Data: Microbiology 11/05/17 05:18 Stool Occult Blood (SHORTY) - Final Stool Assess/Plan/Problems-Billing Assessment: - Patient Problems (1) Elevated troponin Current Visit: No Status: Acute Code(s): R79.89 - OTHER SPECIFIED ABNORMAL FINDINGS OF BLOOD CHEMISTRY SNOMED Code(s): 768439685 Comment: Chest "Uneasiness", resolved on 11/05. LVEF wnl. Discussed with Dr. Hill. Continue NTG infusion, statin, isosorbide, ASA. (2) Type 2 diabetes mellitus Current Visit: No Status: Chronic Priority: High Comment: Continue Lantus and SS lispro. Resume sitagliptin. (3) Hypertension Current Visit: No Status: Acute Code(s): I10 - ESSENTIAL (PRIMARY) HYPERTENSION SNOMED Code(s): 28011835 Comment: Continue isosorbide, hold amlodipine, chlorthalidone. (4) Leukocytosis Current Visit: Yes Status: Acute Code(s): D72.829 - ELEVATED WHITE BLOOD CELL COUNT, UNSPECIFIED SNOMED Code(s): 629811979 Comment: Not clear if antibiotics of benefit here. WBC declining. Procalcitonin pending. Afebrile. (5) Afib Current Visit: No Status: Acute Code(s): I48.91 - UNSPECIFIED ATRIAL FIBRILLATION SNOMED Code(s): 73144230 Comment: continue home amiodarone Start apixaban when INR <2 if endoscopic risk of bleeding is low. (6) GI bleed Current Visit: Yes Status: Acute Code(s): K92.2 - GASTROINTESTINAL HEMORRHAGE, UNSPECIFIED SNOMED Code(s): 67043921 Comment: EGD when INR and O2 requirement at acceptable levels. ! U PRBC given 11/05, 2nd unit 11/06. Continue pantoprazole infusion. Discussed with Dr. Hernandez.
[2017-11-06] MEDS ORDERED: Bumetanide IV* 0.25 MG/ML 4 ML VIAL SLOW PUSH PRN (09:07)
--- NOTE | 2017-11-06 09:16 | PN ---
Subjective Date of Service: 11/06/17 Interval History: f/u pneumonia, UGIB, type 2 OK, CHF No chest discomfort this AM tolerating IV bumex well, no rash Still has 02 requirement but breathing improved telemetry no arrhythmias Medications Active Medications: Acetaminophen (Tylenol Tab*) 650 mg PO Q4H PRN PRN Reason: FEVER/PAIN Amiodarone HCl (Cordarone Tab*) 100 mg PO MoWeFr@0900 [facility] Last Admin: 11/06/17 07:52 Dose: 100 mg Aspirin (Aspirin 81 Mg Chew Tab*) 81 mg PO DAILY [facility] Atorvastatin Calcium (Lipitor*) 80 mg PO QPM [facility] Last Admin: 11/05/17 17:35 Dose: 80 mg Bumetanide (Bumex*) 1 mg SLOW PUSH ONCE PRN PRN Reason: RESPIRATORY DISTRESS Dextrose (D50w Syringe 50 Ml*) 12.5 gm IV PUSH .FOR FS < 60 - SS PRN PRN Reason: FS < 60 Ceftriaxone Sodium 1 gm/ (Sodium Chloride) 50 mls @ 200 mls/hr IVPB Q24H [facility] Last Admin: 11/06/17 06:30 Dose: 200 mls/hr Pantoprazole Sodium 80 mg/ (Sodium Chloride) 250 mls @ 25 mls/hr IVPB Q10H [facility] Last Admin: 11/05/17 23:49 Dose: 25 mls/hr Nitroglycerin/Dextrose (Nitroglycerin Drip*) 25,000 mcg in 250 mls @ 3 mls/hr IV .(Initial Rate) [facility]; 5 MCG/MIN PRN Reason: Protocol Last Admin: 11/05/17 18:10 Dose: 3 mls/hr Doxycycline Hyclate 100 mg/ (Sodium Chloride) 250 mls @ 250 mls/hr IVPB 0730, 1930 [facility] Insulin Glargine (Lantus(*)) 12 units SUBCUT QAM [facility] Last Admin: 11/06/17 07:54 Dose: 12 unit Insulin Human Lispro (Humalog*) 0 units SUBCUT AC [facility] PRN Reason: Protocol Last Admin: 11/06/17 07:53 Dose: 2 unit Isosorbide Mononitrate (Imdur Er Tab*) 30 mg PO DAILY [facility] Last Admin: 11/06/17 07:52 Dose: 30 mg Morphine Sulfate (Morphine Vial*) 2 mg IV Q4H PRN PRN Reason: PAIN - MILD Ondansetron HCl (Zofran 40 Mg Vial*) 4 mg IV Q6H PRN PRN Reason: NAUSEA Potassium Chloride (Klor Con Er Tab*) 20 meq PO Q2H JACK Stop: 11/06/17 16:00 Sitagliptin Phosphate (Januvia (Nf)) 50 mg PO DAILY JACK Objective Vital Signs: Temp Pulse Resp BP Pulse Ox 98.6 F 75 19 125/56 99 11/06/17 07:35 11/06/17 09:00 11/06/17 09:00 11/06/17 09:00 11/06/17 09:00 Oxygen Devices in Use Now: High Flow Nasal Cannula, OxyMask Appearance: very pleasant, somewhat frail Ears/Nose/Mouth/Throat: Clear Oropharnyx Neck: Trachea Midline, - - uncertain jvp Respiratory: - - no tachypnea or increased work of breathing, b/l basilar rales Cardiovascular: RRR, - - 4/6 systolic murmur Abdominal: NL Sounds; No Tenderness; No Distention Extremities: No Edema Skin: - - s/p R leg amputation, left leg as above Laboratory Results: 11/06/17 05:47 11/06/17 05:47 INR (Anticoag Therapy) 8.78 (0.77-1.02) H* 11/05/17 09:06 APTT 56.4 seconds (26.0-36.3) H 11/05/17 03:51 Total Bilirubin 0.70 mg/dL (0.2-1.0) 11/05/17 03:51 AST 29 U/L (13-39) 11/05/17 03:51 ALT 32 U/L (7-52) 11/05/17 03:51 Alkaline Phosphatase 51 U/L (34-104) 11/05/17 03:51 CK-MB (CK-2) 15.4 ng/mL (0.6-6.3) H 11/06/17 05:47 B-Natriuretic Peptide 402 pg/mL (-100) H 11/05/17 03:51 Total Protein 6.7 g/dL (6.4-8.9) 11/05/17 03:51 Albumin 3.7 g/dL (3.2-5.2) 11/05/17 03:51 Globulin 3.0 g/dL (2-4) 11/05/17 03:51 Albumin/Globulin Ratio 1.2 (1-3) 11/05/17 03:51 11/05/17 11/05/17 11/05/17 06:46 09:06 15:30 Troponin I 0.27 H* 0.67 H* 1.64 H* EKG Data: 03/2017 stress test I reviewed: Small to moderate sized inferior infarct with sophy-infarct ischemia ekg 11/05/2017: NSR 73 bpm, 1 avb, pvc, [address] depression v3- v6 slightly improved on repeat . Much more pronounced than minimal st depression seen prior 04/2017, minimal inferior ST depression unchanged Assessment/Plan Mr. Méndez is an 82-year-old man with a history of CAD/OK, DM, PAD, CKD/HFpEF admitted with suspected pneumonia triggering hyperglycemia, supratherapeutic INR with UGIB, anemia and enzymatically small type 2 OK with acutely decompensated HFpEF/CKD volume overload, LVEF 50% with moderate and MR - Would restart aspirin today if ok with GI - Continue statin - Agree with d/c of warfarin and giving vitamin K, f/u INR - Transfuse to hemoglobin 9 or greater. Continue diuresis, more given this AM - Would trend daily ck-mb to roughly estimate infarct size and not troponin given his CKD - Continue imdur, can d/c nitro gtt - Hold norvac for now - Not on beta-willie due to prior bradycardia - Continue amiodarone 100 mg M,W,F - Has not required morphine - Antibiotics per primary service - If continues diuresis and 02 requirements improve, would be ok from a cardiology standpoint for EGD later today Thank you for allowing me to participate in the cardiovascular care of this patient. Please do not hesitate to contact me if there are questions or concerns.
[2017-11-06] MEDS: Bumetanide IV* 0.25 MG/ML 4 ML VIAL SLOW PUSH ONE (09:29)
[2017-11-06 09:53] LABS: INR 4.97 (0.77-1.02)
[2017-11-06] MEDS: Aspirin 81 mg CHEW TAB* 81 MG TAB.CHEW PO SCH (09:54)
[2017-11-06] MEDS: Potassium Chlor TAB* 10 MEQ TAB.ER PO SCH ×4 (09:54→19:42)
[2017-11-06] MEDS: Pantoprazole IV* 80 MG in NS 0.9% 250 ML* 250 ML IVPB SCH ×2 (11:02→19:10)
[2017-11-06] MEDS: DOXYcycline IV* 100 MG in NS 0.9% 250 ML* 250 ML IVPB SCH ×3 (11:04→22:36)
[2017-11-06] MEDS: PTO: Sitagliptin (NF) 50 MG TAB PO SCH (11:07)
[2017-11-06 17:06] LABS: Hematocrit 27 % (42-52); Hemoglobin 9.1 g/dl (14.0-18.0); Mean Corpuscular HGB Conc 34 g/dl (31-36); Mean Corpuscular Hemoglobin 30 pg (27-31); Mean Corpuscular Volume 89 fL (80-94); Mean Platelet Volume 7.9 um3 (7.4-10.4); Platelet Count 229 10^3/ul (150-450); Red Blood Count 3.02 10^6/ul (4.0-5.4); Red Cell Distribution Width 14 % (10.5-15); White Blood Count 18.5 10^3/ul (3.5-10.8)
[2017-11-06 17:16] LABS: ABS Basophils 0.1 10^3/ul (0-0.2); ABS Eosinophils 0 10^3/ul (0-0.6); ABS Lymphocytes 0.4 10^3/ul (1.0-4.8); ABS Monocytes 1.9 10^3/ul (0-0.8); ABS Nucleated RBC 0 10^3/ul; Eosinophil % 0.3 % (0-6); Lymphocyte % 2.3 % (25-47); Nucleated Red Blood Cells % 0.1
[2017-11-06 18:26] LABS: Urine Appearance Clear; Urine Blood Negative (Negative); Urine Color Straw; Urine Ketones Negative (Negative); Urine Protein Negative (Negative); Urine Urobilinogen Negative (Negative)
[2017-11-06] MEDS: Atorvastatin* 80 MG TAB PO SCH (18:53)
[2017-11-07 04:49] LABS: Hematocrit 26 % (42-52); Hemoglobin 8.7 g/dl (14.0-18.0); Mean Corpuscular HGB Conc 34 g/dl (31-36); Mean Corpuscular Hemoglobin 30 pg (27-31); Mean Corpuscular Volume 90 fL (80-94); Mean Platelet Volume 7.5 um3 (7.4-10.4); Platelet Count 224 10^3/ul (150-450); Red Blood Count 2.85 10^6/ul (4.0-5.4); Red Cell Distribution Width 14 % (10.5-15); White Blood Count 16.4 10^3/ul (3.5-10.8)
[2017-11-07 04:56] LABS: INR 4.18 (0.77-1.02)
[2017-11-07] MEDS: Pantoprazole IV* 80 MG in NS 0.9% 250 ML* 250 ML IVPB SCH (04:59)
[2017-11-07 05:05] LABS: EGFR Non-African American 37.7 (>60)
[2017-11-07 05:09] LABS: ABS Basophils 0 10^3/ul (0-0.2); ABS Eosinophils 0.1 10^3/ul (0-0.6); ABS Lymphocytes 0.4 10^3/ul (1.0-4.8); ABS Monocytes 1.8 10^3/ul (0-0.8); ABS Neutrophils 14.2 10^3/ul (1.5-7.7); ABS Nucleated RBC 0 10^3/ul; Eosinophil % 0.3 % (0-6); Lymphocyte % 2.3 % (25-47); Nucleated Red Blood Cells % 0.1
[2017-11-07] MEDS: cefTRIAXone(*) 1 GM in NS 0.9% 50 ML* 50 ML IVPB SCH (06:28)
[2017-11-07] MEDS: Insulin GLARGINE(*) 1 UNITS UNIT SUBCUT SCH (08:39)
[2017-11-07] MEDS: Insulin LISPRO* 1 UNITS UNIT SUBCUT SCH ×3 (08:39→17:23)
--- NOTE | 2017-11-07 08:54 | PN ---
Subjective Date of Service: 11/07/17 Interval History: C/O stuffy nose. Very little cough. Not SOB. No chest or other discomfort. Objective Active Medications: Acetaminophen (Tylenol Tab*) 650 mg PO Q4H PRN PRN Reason: FEVER/PAIN Last Admin: 11/06/17 17:14 Dose: 650 mg Amiodarone HCl (Cordarone Tab*) 100 mg PO MoWeFr@0900 [facility] Last Admin: 11/06/17 07:52 Dose: 100 mg Aspirin (Aspirin 81 Mg Chew Tab*) 81 mg PO DAILY [facility] Last Admin: 11/06/17 09:54 Dose: 81 mg Atorvastatin Calcium (Lipitor*) 80 mg PO QPM [facility] Last Admin: 11/06/17 18:53 Dose: 80 mg Bumetanide (Bumex*) 1 mg SLOW PUSH ONCE PRN PRN Reason: RESPIRATORY DISTRESS Chlorthalidone (Hygroton Tab*) 25 mg PO QPM [facility] Dextrose (D50w Syringe 50 Ml*) 12.5 gm IV PUSH .FOR FS < 60 - SS PRN PRN Reason: FS < 60 Ceftriaxone Sodium 1 gm/ (Sodium Chloride) 50 mls @ 200 mls/hr IVPB Q24H [facility] Last Admin: 11/07/17 06:28 Dose: 200 mls/hr Pantoprazole Sodium 80 mg/ (Sodium Chloride) 250 mls @ 25 mls/hr IVPB Q10H [facility] Last Admin: 11/07/17 04:59 Dose: 25 mls/hr Doxycycline Hyclate 100 mg/ (Sodium Chloride) 250 mls @ 250 mls/hr IVPB 1100, 2300 [facility] Last Admin: 11/06/17 22:36 Dose: 250 mls/hr Insulin Glargine (Lantus(*)) 16 units SUBCUT QAM [facility] Insulin Human Lispro (Humalog*) 0 units SUBCUT AC [facility] PRN Reason: Protocol Last Admin: 11/07/17 08:39 Dose: 2 unit Isosorbide Mononitrate (Imdur Er Tab*) 30 mg PO DAILY [facility] Last Admin: 11/06/17 07:52 Dose: 30 mg Ondansetron HCl (Zofran 40 Mg Vial*) 4 mg IV Q6H PRN PRN Reason: NAUSEA Sitagliptin Phosphate (Januvia (Nf)) 50 mg PO DAILY [facility] Last Admin: 11/06/17 11:07 Dose: 50 mg Spironolactone (Aldactone Tab*) 50 mg PO DAILY [facility] Vital Signs - 8 hr 11/07/17 11/07/17 11/07/17 01:00 01:30 02:00 Temperature Pulse Rate Respiratory 18 21 26 Rate Blood Pressure 120/51 118/54 137/61 (mmHg) O2 Sat by Pulse 96 97 95 Oximetry 11/07/17 11/07/17 11/07/17 02:30 03:00 03:31 Temperature Pulse Rate Respiratory 18 18 18 Rate Blood Pressure 120/53 110/60 124/54 (mmHg) O2 Sat by Pulse 97 98 96 Oximetry 11/07/17 11/07/17 11/07/17 03:55 04:00 04:01 Temperature 100.7 F Pulse Rate Respiratory 17 16 Rate Blood Pressure 131/64 (mmHg) O2 Sat by Pulse 93 95 Oximetry 11/07/17 11/07/17 11/07/17 04:03 04:30 05:00 Temperature Pulse Rate Respiratory 20 15 Rate Blood Pressure 117/52 120/58 (mmHg) O2 Sat by Pulse 98 97 97 Oximetry 11/07/17 11/07/17 11/07/17 05:30 06:00 06:30 Temperature Pulse Rate 82 Respiratory 16 18 17 Rate Blood Pressure 124/61 121/56 121/52 (mmHg) O2 Sat by Pulse 97 95 96 Oximetry 11/07/17 11/07/17 11/07/17 07:00 07:30 07:44 Temperature 101.4 F Pulse Rate 80 78 Respiratory 15 17 Rate Blood Pressure 122/57 123/58 (mmHg) O2 Sat by Pulse 96 96 Oximetry 11/07/17 08:00 Temperature Pulse Rate 80 Respiratory 17 Rate Blood Pressure 125/62 (mmHg) O2 Sat by Pulse 95 Oximetry Oxygen Devices in Use Now: Nasal Cannula Appearance: Alert, sitting up in ICU bed. In good spirits. Looks comfortable. Eyes: No Scleral Icterus Respiratory: Clear to Auscultation, Clear to Percussion, Clear to Palpation Cardiovascular: RRR, No Edema, - - 2-3/6 systolic murmur R > L Extremities: No Edema, No Clubbing, Cyanosis Skin: No Nodules or Sclerosis, - - L leg eschar and L leg shallow ulcer no change. No erythema. Result Diagrams: 11/07/17 04:40 11/07/17 04:40 Microbiology and Other Data: Microbiology 11/05/17 05:18 Stool Occult Blood (SHORTY) - Final Stool Assess/Plan/Problems-Billing Assessment: - Patient Problems (1) Elevated troponin Current Visit: No Status: Acute Code(s): R79.89 - OTHER SPECIFIED ABNORMAL FINDINGS OF BLOOD CHEMISTRY SNOMED Code(s): 098714161 Comment: Chest "Uneasiness", resolved on 11/05. LVEF wnl. Discussed with Dr. Hill. Off NTG infusion Continue statin, isosorbide, ASA. Resume home dose chlorthalidone, add spironolactone 11/07. Mg++ add on 11/07. (2) Type 2 diabetes mellitus Current Visit: No Status: Chronic Priority: High Comment: Increase Lantus to 16 U 11/06, continue SS lispro, sitagliptin. (3) Hypertension Current Visit: No Status: Acute Code(s): I10 - ESSENTIAL (PRIMARY) HYPERTENSION SNOMED Code(s): 15415198 Comment: Continue isosorbide, hold amlodipine, chlorthalidone. (4) Leukocytosis Current Visit: Yes Status: Acute Code(s): D72.829 - ELEVATED WHITE BLOOD CELL COUNT, UNSPECIFIED SNOMED Code(s): 614865122 Comment: Not clear if antibiotics of benefit here. WBC declining. Procalcitonin very low. Febrile. Repeat blood and urine C&S sent 11/06. Suspect viral URI. (5) Afib Current Visit: No Status: Acute Code(s): I48.91 - UNSPECIFIED ATRIAL FIBRILLATION SNOMED Code(s): 99465050 Comment: continue home amiodarone Start apixaban when INR <2 if endoscopic risk of bleeding is low. (6) GI bleed Current Visit: Yes Status: Acute Code(s): K92.2 - GASTROINTESTINAL HEMORRHAGE, UNSPECIFIED SNOMED Code(s): 10786767 Comment: EGD when INR and O2 requirement at acceptable levels. ! U PRBC given 11/05, 2nd unit 11/06. Continue pantoprazole infusion. Discussed with Dr. Hernandez.
[2017-11-07] MEDS ORDERED: Insulin GLARGINE(*) 1 UNITS UNIT SUBCUT SCH (09:00)
[2017-11-07] MEDS ORDERED: fentaNYL* 50 MCG/ML 2 ML VIAL (100 MCG VIAL) ONE (09:29)
[2017-11-07] MEDS ORDERED: Midazolam* 1 MG/ML 10 ML VIAL (10 MG) ONE (09:30)
--- NOTE | 2017-11-07 09:57 | PN ---
Subjective Date of Service: 11/07/17 Interval History: f/u ? infection UGIB, type 2 [place], CHF No chest discomfort or dyspnea this AM 02 requirements improved Febrile this AM possible EGD later today telemetry no arrhythmias Medications Active Medications: Acetaminophen (Tylenol Tab*) 650 mg PO Q4H PRN PRN Reason: FEVER/PAIN Last Admin: 11/06/17 17:14 Dose: 650 mg Amiodarone HCl (Cordarone Tab*) 100 mg PO MoWeFr@0900 [facility] Last Admin: 11/06/17 07:52 Dose: 100 mg Aspirin (Aspirin 81 Mg Chew Tab*) 81 mg PO DAILY [facility] Last Admin: 11/06/17 09:54 Dose: 81 mg Atorvastatin Calcium (Lipitor*) 80 mg PO QPM [facility] Last Admin: 11/06/17 18:53 Dose: 80 mg Chlorthalidone (Hygroton Tab*) 25 mg PO QPM [facility] Dextrose (D50w Syringe 50 Ml*) 12.5 gm IV PUSH .FOR FS < 60 - SS PRN PRN Reason: FS < 60 Ceftriaxone Sodium 1 gm/ (Sodium Chloride) 50 mls @ 200 mls/hr IVPB Q24H [facility] [place] Last Admin: 11/07/17 06:28 Dose: 200 mls/hr Pantoprazole Sodium 80 mg/ (Sodium Chloride) 250 mls @ 25 mls/hr IVPB Q10H [facility] Last Admin: 11/07/17 04:59 Dose: 25 mls/hr Doxycycline Hyclate 100 mg/ (Sodium Chloride) 250 mls @ 250 mls/hr IVPB 1100, 2300 [facility] Last Admin: 11/06/17 22:36 Dose: 250 mls/hr Insulin Glargine (Lantus(*)) 16 units SUBCUT QAM [facility] Last Admin: 11/07/17 09:29 Dose: 4 units Insulin Human Lispro (Humalog*) 0 units SUBCUT AC [facility] PRN Reason: Protocol Last Admin: 11/07/17 08:39 Dose: 2 unit Isosorbide Mononitrate (Imdur Er Tab*) 30 mg PO DAILY [facility] Last Admin: 11/06/17 07:52 Dose: 30 mg Ondansetron HCl (Zofran 40 Mg Vial*) 4 mg IV Q6H PRN PRN Reason: NAUSEA Sitagliptin Phosphate (Januvia (Nf)) 50 mg PO DAILY [facility] Last Admin: 11/06/17 11:07 Dose: 50 mg Spironolactone (Aldactone Tab*) 50 mg PO DAILY [facility] Objective Vital Signs: Temp Pulse Resp BP Pulse Ox 101.4 F 86 22 131/59 97 11/07/17 07:44 11/07/17 09:00 11/07/17 09:00 11/07/17 09:00 11/07/17 09:17 Oxygen Devices in Use Now: High Flow Nasal Cannula Appearance: very pleasant, somewhat frail Ears/Nose/Mouth/Throat: Clear Oropharnyx Neck: Trachea Midline, - - uncertain jvp Respiratory: - - no tachypnea or increased work of breathing, mild crackles right base Cardiovascular: RRR, - - 4/6 systolic murmur Abdominal: NL Sounds; No Tenderness; No Distention Extremities: No Edema Skin: - - s/p R leg amputation, left leg as above Neurological: Alert and Oriented x 3 Laboratory Results: 11/07/17 04:40 11/07/17 04:40 INR (Anticoag Therapy) 4.18 (0.77-1.02) H 11/07/17 04:40 APTT 56.4 seconds (26.0-36.3) H 11/05/17 03:51 Total Bilirubin 0.70 mg/dL (0.2-1.0) 11/05/17 03:51 AST 29 U/L (13-39) 11/05/17 03:51 ALT 32 U/L (7-52) 11/05/17 03:51 Alkaline Phosphatase 51 U/L (34-104) 11/05/17 03:51 CK-MB (CK-2) 3.0 ng/mL (0.6-6.3) 11/07/17 04:40 B-Natriuretic Peptide 402 pg/mL (-100) H 11/05/17 03:51 Total Protein 6.7 g/dL (6.4-8.9) 11/05/17 03:51 Albumin 3.7 g/dL (3.2-5.2) 11/05/17 03:51 Globulin 3.0 g/dL (2-4) 11/05/17 03:51 Albumin/Globulin Ratio 1.2 (1-3) 11/05/17 03:51 11/05/17 11/05/17 11/05/17 06:46 09:06 15:30 Troponin I 0.27 H* 0.67 H* 1.64 H* EKG Data: 03/2017 stress test I reviewed: Small to moderate sized inferior infarct with sophy-infarct ischemia ekg 11/05/2017: NSR 73 bpm, 1 avb, pvc, [address] depression v3- v6 slightly improved on repeat . Much more pronounced than minimal st depression seen prior 04/2017, minimal inferior ST depression unchanged Assessment/Plan Mr. Méndez is an 82-year-old man with a history of CAD/DC, DM, PAD, CKD/HFpEF admitted with ? infection triggering hyperglycemia, supratherapeutic INR with UGIB, anemia and enzymatically small type 2 DC with acutely decompensated HFpEF/ CKD volume overload, LVEF 50% with moderate and MR - Continue aspirin - Continue statin - Agree with d/c of warfarin and giving vitamin K, f/u INR - Agree with continued diuresis, would not discharge on aldactone - Continue imdur - Hold norvac for now - Not on beta-willie due to prior bradycardia - Continue amiodarone 100 mg M,W,F - Antibiotics per primary service - EGD possibly later today Thank you for allowing me to participate in the cardiovascular care of this patient. Please do not hesitate to contact me if there are questions or concerns.
[2017-11-07] MEDS: DOXYcycline IV* 100 MG in NS 0.9% 250 ML* 250 ML IVPB SCH ×2 (11:18→22:48)
[2017-11-07] MEDS: Spironolactone TAB* 25 MG PO SCH (11:23)
[2017-11-07] MEDS: Aspirin 81 mg CHEW TAB* 81 MG TAB.CHEW PO SCH (11:23)
[2017-11-07] MEDS: PTO: Sitagliptin (NF) 50 MG TAB PO SCH (11:23)
[2017-11-07] MEDS: Isosorbide Mononitrate ER TAB* 30 MG PO SCH (11:23)
--- NOTE | 2017-11-07 12:51 | PRO ---
DATE OF PROCEDURE: 11/07/17 - ROOM #ICU-6 PROCEDURE: EGD. INDICATION: Melena. REFERRING PHYSICIAN: None. MEDICATIONS GIVEN: IV Versed 1 mg. PROCEDURE IN DETAIL: After the EGD procedure including the risks, benefits, and alternatives not limited to perforation, surgery and/or were explained to Mr. Méndez, written consent was then obtained. IV medication was given and an Olympus pediatric gastroscope was then inserted into the patient's mouth, advanced down the esophagus, into the stomach and into the distal duodenum. Immediately upon entering his posterior pharynx, there was a small amount of bright red blood found around his epiglottis. I was able to navigate underneath the epiglottis into the upper esophageal sphincter down the esophagus , into the stomach, into the distal duodenum. There was also one additional small trace amount of bright red blood in the esophagus, but no ulcers were seen. Distal esophagus appeared normal. No erosive esophagitis was seen. The scope was advanced into the stomach, retroflex and forward views. Very careful and thorough evaluation did not reveal any erosions or ulcers or any source of bleeding. A biopsy was obtained for H. pylori. Scope was advanced through a widely patent pylorus and duodenal bulb into the distal duodenum, both of which were unremarkable. Scope was then withdrawn from the patient and again noted around the epiglottis, there was a small amount of bright red blood. He tolerated the procedure well, was returned to the care of ICU staff. IMPRESSION: 1. Complete upper endoscopy into the distal duodenum with biopsies. 2. Biopsy for H. pylori. 3. No GI source for his melena; however, I did see blood in his pharynx and larynx and I did ask the patient about nosebleeds and he tells me he has frequent nosebleeds, I wonder if that is the blood I saw today and then he has been swallowing the blood causing melena in the past. We will continue to follow along. [id number]/[facility] #: [id number] [facility]yler
[2017-11-07] MEDS ORDERED: Chlorthalidone TAB* 50 MG PO ONE (15:00)
[2017-11-07] MEDS ORDERED: Magnesium Sulfate 2 GM IV* 2 GM/50 ML BAG IVPB ONE (15:04)
[2017-11-07] MEDS: Atorvastatin* 80 MG TAB PO SCH (17:22)
[2017-11-07] MEDS ORDERED: Chlorthalidone TAB* 50 MG PO SCH (18:00)
[2017-11-07] MEDS ORDERED: Bumetanide IV* 0.25 MG/ML 4 ML VIAL SLOW PUSH ONE (18:30)
[2017-11-07] MEDS ORDERED: Bumetanide IV* 0.25 MG/ML 4 ML VIAL ONE (18:47)
[2017-11-08 05:04] LABS: Hematocrit 25 % (42-52); Hemoglobin 8.3 g/dl (14.0-18.0); Mean Corpuscular HGB Conc 34 g/dl (31-36); Mean Corpuscular Hemoglobin 30 pg (27-31); Mean Corpuscular Volume 89 fL (80-94); Mean Platelet Volume 7.8 um3 (7.4-10.4); Platelet Count 229 10^3/ul (150-450); Red Blood Count 2.77 10^6/ul (4.0-5.4); Red Cell Distribution Width 14 % (10.5-15)
[2017-11-08 05:21] LABS: EGFR Non-African American 29.4 (>60)
[2017-11-08 05:28] LABS: ABS Basophils 0.1 10^3/ul (0-0.2); ABS Eosinophils 0 10^3/ul (0-0.6); ABS Lymphocytes 0.3 10^3/ul (1.0-4.8); ABS Neutrophils 15.6 10^3/ul (1.5-7.7); ABS Nucleated RBC 0 10^3/ul; Eosinophil % 0 % (0-6); Lymphocyte % 1.9 % (25-47); Nucleated Red Blood Cells % 0
[2017-11-08] MEDS: cefTRIAXone(*) 1 GM in NS 0.9% 50 ML* 50 ML IVPB SCH (06:20)
[2017-11-08] MEDS: Omeprazole CAP* 20 MG PO SCH (06:20)
[2017-11-08] MEDS ORDERED: Magnesium Sulfate 1 GM IV* 1 GM/100 ML BAG IV ONE (08:24)
--- NOTE | 2017-11-08 08:35 | PN ---
Subjective Date of Service: 11/08/17 Interval History: Less SOB this AM. No cough, chest discomfort, no new c/o. Objective Active Medications: Acetaminophen (Tylenol Tab*) 650 mg PO Q4H PRN PRN Reason: FEVER/PAIN Last Admin: 11/06/17 17:14 Dose: 650 mg Amiodarone HCl (Cordarone Tab*) 100 mg PO MoWeFr@0900 [facility] Last Admin: 11/06/17 07:52 Dose: 100 mg Amlodipine Besylate (Norvasc Tab*) 5 mg PO DAILY [facility] Aspirin (Aspirin 81 Mg Chew Tab*) 81 mg PO DAILY [facility] Last Admin: 11/07/17 11:23 Dose: 81 mg Atorvastatin Calcium (Lipitor*) 80 mg PO QPM [facility] Last Admin: 11/07/17 17:22 Dose: 80 mg Bumetanide (Bumex Tab*) 2 mg PO DAILY [facility] Dextrose (D50w Syringe 50 Ml*) 12.5 gm IV PUSH .FOR FS < 60 - SS PRN PRN Reason: FS < 60 Ceftriaxone Sodium 1 gm/ (Sodium Chloride) 50 mls @ 200 mls/hr IVPB Q24H [facility] Last Admin: 11/08/17 06:20 Dose: 200 mls/hr Doxycycline Hyclate 100 mg/ (Sodium Chloride) 250 mls @ 250 mls/hr IVPB 1100, 2300 [facility] Last Admin: 11/07/17 22:48 Dose: 250 mls/hr Magnesium Sulfate/Dextrose (Magnesium Sulfate 1 Gm Iv*) 1 gm in 100 mls @ 200 mls/hr IV ONCE ONE Stop: 11/08/17 08:53 Insulin Glargine (Lantus(*)) 22 units SUBCUT QAM [facility] Insulin Human Lispro (Humalog*) 0 units SUBCUT AC [facility] PRN Reason: Protocol Last Admin: 11/07/17 17:23 Dose: 5 unit Isosorbide Mononitrate (Imdur Er Tab*) 30 mg PO DAILY [facility] Last Admin: 11/07/17 11:23 Dose: 30 mg Magnesium Oxide (Magox 400 Tab*) 800 mg PO DAILY [facility] Omeprazole (Prilosec Cap*) 20 mg PO 0600 [facility] Last Admin: 11/08/17 06:20 Dose: 20 mg Ondansetron HCl (Zofran 40 Mg Vial*) 4 mg IV Q6H PRN PRN Reason: NAUSEA Sitagliptin Phosphate (Januvia (Nf)) 50 mg PO DAILY [facility] Last Admin: 11/07/17 11:23 Dose: 50 mg Spironolactone (Aldactone Tab*) 50 mg PO DAILY [facility] Last Admin: 11/07/17 11:23 Dose: 50 mg Vital Signs - 8 hr 11/08/17 11/08/17 11/08/17 00:30 01:00 01:30 Temperature Pulse Rate 89 84 83 Respiratory 25 23 24 Rate Blood Pressure 113/73 113/54 116/69 (mmHg) O2 Sat by Pulse 95 100 100 Oximetry 11/08/17 11/08/17 11/08/17 02:00 02:30 03:00 Temperature Pulse Rate 78 82 84 Respiratory 19 22 16 Rate Blood Pressure 110/53 120/55 115/54 (mmHg) O2 Sat by Pulse 100 100 100 Oximetry 11/08/17 11/08/17 11/08/17 03:30 03:35 03:36 Temperature 99.2 F Pulse Rate 77 Respiratory 14 Rate Blood Pressure 122/56 (mmHg) O2 Sat by Pulse 99 100 Oximetry 11/08/17 11/08/17 11/08/17 03:39 04:00 04:26 Temperature Pulse Rate 80 78 Respiratory 18 18 19 Rate Blood Pressure 115/53 115/53 (mmHg) O2 Sat by Pulse 100 100 Oximetry 11/08/17 11/08/17 11/08/17 04:30 05:00 05:30 Temperature Pulse Rate 75 83 81 Respiratory 17 20 19 Rate Blood Pressure 109/54 121/55 117/54 (mmHg) O2 Sat by Pulse 100 100 100 Oximetry 11/08/17 11/08/17 11/08/17 05:49 06:00 06:26 Temperature Pulse Rate 69 Respiratory 18 20 19 Rate Blood Pressure 117/53 (mmHg) O2 Sat by Pulse 100 Oximetry 11/08/17 08:00 Temperature 99.2 F Pulse Rate Respiratory Rate Blood Pressure (mmHg) O2 Sat by Pulse Oximetry Oxygen Devices in Use Now: High Flow Heated Nasal Cannula Appearance: Alert, siting up on ICU bed. In good spirits. Looks comfortable. Eyes: No Scleral Icterus Respiratory: Symmetrical Chest Expansion and Respiratory Effort, Clear to Auscultation, Clear to Percussion Cardiovascular: RRR, No Edema - 2-4/6 systolic murmur R > L Extremities: No Edema, No Clubbing, Cyanosis, - Skin: No Nodules or Sclerosis, - - L leg lesions seem to be healing slolwy without erythema, warmth, or tenderness. or fluctuance. Neurological: Alert and Oriented x 3, NL Sensation Result Diagrams: 11/08/17 04:50 11/08/17 04:50 Microbiology and Other Data: Microbiology 11/05/17 05:18 Stool Occult Blood (SHORTY) - Final Stool Assess/Plan/Problems-Billing Assessment: - Patient Problems (1) Elevated troponin Current Visit: No Status: Acute Code(s): R79.89 - OTHER SPECIFIED ABNORMAL FINDINGS OF BLOOD CHEMISTRY SNOMED Code(s): 307709210 Comment: Chest "Uneasiness", resolved on 11/05. LVEF wnl. Discussed with Dr. Hill. Off NTG infusion Continue statin, isosorbide, ASA. BUN and creat elevated after 2 mg IV bumetanide 11/07. Continue po bumetanide 1 mg daily, BMP , addon BNP 11/08. (2) Type 2 diabetes mellitus Current Visit: No Status: Chronic Priority: High Comment: Increase Lantus to 22 U 11/08, continue SS lispro, sitagliptin. (3) Hypertension Current Visit: No Status: Acute Code(s): I10 - ESSENTIAL (PRIMARY) HYPERTENSION SNOMED Code(s): 18988687 Comment: Continue isosorbide, hold amlodipine. (4) Leukocytosis Current Visit: Yes Status: Acute Code(s): D72.829 - ELEVATED WHITE BLOOD CELL COUNT, UNSPECIFIED SNOMED Code(s): 332160932 Comment: Not clear if antibiotics of benefit here. coould be drug fever. WBC remains elevated as of 11/08, no consistent change since admission Procalcitonin very low. Febrile. Repeat blood and urine C&S sent 11/06, all neg to date 11/08. ? viral URI, drug fever. Stop antibiotics, re-culture if fever recurs. (5) Afib Current Visit: No Status: Acute Code(s): I48.91 - UNSPECIFIED ATRIAL FIBRILLATION SNOMED Code(s): 01140241 Comment: continue home amiodarone. Start apixaban when INR <2 if endoscopic risk of bleeding is low. INR 11/09. (6) GI bleed Current Visit: Yes Status: Acute Code(s): K92.2 - GASTROINTESTINAL HEMORRHAGE, UNSPECIFIED SNOMED Code(s): 84020925 Comment: EGD when INR and O2 requirement at acceptable levels. 1 U PRBC given 11/05, 2nd unit 11/06. EGD neg, continue po omeprazole. 3rd U PRBC 11/08, CBC 11/09. (7) CKD (chronic kidney disease) stage 4, GFR 15-29 ml/min Current Visit: Yes Status: Acute Code(s): N18.4 - CHRONIC KIDNEY DISEASE, STAGE 4 (SEVERE) SNOMED Code(s): 230148048 Comment: Est GFR 29.4 11/08. BMP 11/09. (8) Hypomagnesemia Current Visit: Yes Status: Acute Code(s): E83.42 - HYPOMAGNESEMIA SNOMED Code(s): 014506919 Comment: 2 gm IV 11/07, 1 gm IV 11/09. Continue po mag oxide. Mg++ level .
--- NOTE | 2017-11-08 08:45 | RAD ---
INDICATION: Hypoxia COMPARISON: Most recent comparison chest x-ray November 05, 2017 TECHNIQUE: Single AP portable view of the chest was obtained. FINDINGS: Image quality is compromised due to the relative inferiority of a portable chest x-ray. Again seen is a mild degree of cardiomegaly. There are patchy densities obscuring the bilateral lungs most severely affecting the left lung base. The left hemidiaphragm is obscured. IMPRESSION: Persistent patchy densities with obscuration of the left lung base could be due to pulmonary edema, pneumonitis or ARDS. There has been interval worsening since the November 05, 2017 chest x-ray.
[2017-11-08] MEDS ORDERED: Bumetanide IV* 0.25 MG/ML 4 ML VIAL SLOW PUSH PRN (08:51)
[2017-11-08] MEDS ORDERED: Bumetanide TAB* 2 MG PO SCH (09:00)
[2017-11-08] MEDS: Magnesium Oxide TAB* 400 MG PO SCH (09:08)
[2017-11-08] MEDS: Insulin LISPRO* 1 UNITS UNIT SUBCUT SCH ×3 (09:08→18:01)
[2017-11-08] MEDS: Isosorbide Mononitrate ER TAB* 30 MG PO SCH (09:09)
[2017-11-08] MEDS: Spironolactone TAB* 25 MG PO SCH (09:09)
[2017-11-08] MEDS: PTO: Sitagliptin (NF) 50 MG TAB PO SCH (09:09)
[2017-11-08] MEDS: Aspirin 81 mg CHEW TAB* 81 MG TAB.CHEW PO SCH (09:09)
[2017-11-08] MEDS: amLODIPine TAB* 5 MG PO SCH (09:09)
[2017-11-08] MEDS: Insulin GLARGINE(*) 1 UNITS UNIT SUBCUT SCH (09:31)
[2017-11-08] MEDS: Potassium Chlor TAB* 20 MEQ TAB.ER PO SCH ×2 (09:31→22:28)
[2017-11-08] MEDS: Bumetanide TAB* 1 MG PO SCH (09:31)
[2017-11-08] MEDS ORDERED: Bumetanide IV* 0.25 MG/ML 4 ML VIAL SLOW PUSH ONE ×2 (10:19→17:39)
--- NOTE | 2017-11-08 14:05 | PN ---
Subjective Date of Service: 11/08/17 Interval History: f/u ? infection UGIB, type 2 [place], CHF Back in ICU after several days +i/o with symptomatic HF febrile again last night Now diuresing and 02 requirement decreasing mildly tachypneic at right no chest discomfort EGD blood in ENT area but no evidence of Gi tract bleeding Medications Active Medications: Acetaminophen (Tylenol Tab*) 650 mg PO Q4H PRN PRN Reason: FEVER/PAIN Last Admin: 11/06/17 17:14 Dose: 650 mg Amiodarone HCl (Cordarone Tab*) 100 mg PO MoWeFr@0900 [facility] Last Admin: 11/06/17 07:52 Dose: 100 mg Amlodipine Besylate (Norvasc Tab*) 5 mg PO DAILY [facility] Last Admin: 11/08/17 09:09 Dose: 5 mg Aspirin (Aspirin 81 Mg Chew Tab*) 81 mg PO DAILY [facility] Last Admin: 11/08/17 09:09 Dose: 81 mg Atorvastatin Calcium (Lipitor*) 80 mg PO QPM [facility] Last Admin: 11/07/17 17:22 Dose: 80 mg Bumetanide (Bumex Tab*) 1 mg PO DAILY [facility] Last Admin: 11/08/17 09:31 Dose: 1 mg Bumetanide (Bumex*) 2 mg SLOW PUSH ONCE PRN PRN Reason: hypoxia Dextrose (D50w Syringe 50 Ml*) 12.5 gm IV PUSH .FOR FS < 60 - SS PRN PRN Reason: FS < 60 Insulin Glargine (Lantus(*)) 22 units SUBCUT QAM [facility] Last Admin: 11/08/17 09:31 Dose: 22 units Insulin Human Lispro (Humalog*) 0 units SUBCUT AC [facility] PRN Reason: Protocol Last Admin: 11/08/17 09:08 Dose: 4 unit Isosorbide Mononitrate (Imdur Er Tab*) 30 mg PO DAILY [facility] Last Admin: 11/08/17 09:09 Dose: 30 mg Magnesium Oxide (Magox 400 Tab*) 800 mg PO DAILY [facility] Last Admin: 11/08/17 09:08 Dose: 800 mg Omeprazole (Prilosec Cap*) 20 mg PO 0600 [facility] Last Admin: 11/08/17 06:20 Dose: 20 mg Ondansetron HCl (Zofran 40 Mg Vial*) 4 mg IV Q6H PRN PRN Reason: NAUSEA Potassium Chloride (Klor Con Er Tab*) 20 meq PO BID [facility] Last Admin: 11/08/17 09:31 Dose: 20 meq Sitagliptin Phosphate (Januvia (Nf)) 50 mg PO DAILY [facility] Last Admin: 11/08/17 09:09 Dose: 50 mg Spironolactone (Aldactone Tab*) 50 mg PO DAILY [facility] Last Admin: 11/08/17 09:09 Dose: 50 mg Objective Vital Signs: Temp Pulse Resp BP Pulse Ox 98.8 F 69 19 117/53 100 11/08/17 11:56 11/08/17 06:00 11/08/17 06:26 11/08/17 06:00 11/08/17 06:00 Oxygen Devices in Use Now: High Flow Heated Nasal Cannula Appearance: very pleasant, somewhat frail Ears/Nose/Mouth/Throat: Clear Oropharnyx Neck: Trachea Midline, - - uncertain jvp Respiratory: - - mildly increased work of breathing and tachypnea with bibasilar rales Cardiovascular: RRR, - - 4/6 systolic murmur Abdominal: NL Sounds; No Tenderness; No Distention Extremities: No Edema Skin: - - s/p R leg amputation, left leg as above Neurological: Alert and Oriented x 3 Laboratory Results: 11/08/17 04:50 11/08/17 04:50 INR (Anticoag Therapy) 4.18 (0.77-1.02) H 11/07/17 04:40 APTT 56.4 seconds (26.0-36.3) H 11/05/17 03:51 Total Bilirubin 0.70 mg/dL (0.2-1.0) 11/05/17 03:51 AST 29 U/L (13-39) 11/05/17 03:51 ALT 32 U/L (7-52) 11/05/17 03:51 Alkaline Phosphatase 51 U/L (34-104) 11/05/17 03:51 CK-MB (CK-2) 3.0 ng/mL (0.6-6.3) 11/07/17 04:40 B-Natriuretic Peptide 1723 pg/mL (-100) H 11/08/17 04:50 Total Protein 6.7 g/dL (6.4-8.9) 11/05/17 03:51 Albumin 3.7 g/dL (3.2-5.2) 11/05/17 03:51 Globulin 3.0 g/dL (2-4) 11/05/17 03:51 Albumin/Globulin Ratio 1.2 (1-3) 11/05/17 03:51 11/05/17 11/05/17 11/05/17 06:46 09:06 15:30 Troponin I 0.27 H* 0.67 H* 1.64 H* EKG Data: 03/2017 stress test I reviewed: Small to moderate sized inferior infarct with sophy-infarct ischemia ekg 11/05/2017: NSR 73 bpm, 1 avb, pvc, [address] depression v3- v6 slightly improved on repeat . Much more pronounced than minimal st depression seen prior 04/2017, minimal inferior ST depression unchanged Assessment/Plan Mr. 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 infection triggering hyperglycemia, supratherapeutic INR with UGIB, anemia and enzymatically small type 2 [place] with acutely decompensated HFpEF/CKD volume overload, LVEF 50% with moderate and MR. EGD no Gi source of bleeding may have come from ENT area. s/p vitamin K reversal - Continue aspirin - Continue statin - Agree with continued diuresis, would not discharge on aldactone given prior hyperkalemia - Continue imdur - Continue norvac - Not on beta-willie due to prior bradycardia - Continue amiodarone 100 mg M,W,F - f/u INR I had a long discussion with patient, and daughter Sia regarding. 1. Anticoagulation. I advised against restarting warfarin. We discussed risks and benefits of aspirin alone, aspirin + plavix, and aspirin + low dose eliquis (latter would be my recommendation). She inquired about watchman device. This is not unreasonable but would still be committed to 6 months of aspirin + plavix 2. Fevers. A source of infection has not been identified. Antibiotics currently held. ID will be consulted for tomorrow. Thank you for allowing me to participate in the cardiovascular care of this patient. Please do not hesitate to contact me if there are questions or concerns.
[2017-11-08] MEDS: Atorvastatin* 80 MG TAB PO SCH (18:02)
[2017-11-09 06:35] LABS: ABS Basophils 0.1 10^3/ul (0-0.2); ABS Eosinophils 0.2 10^3/ul (0-0.6); ABS Lymphocytes 0.4 10^3/ul (1.0-4.8); ABS Monocytes 1.5 10^3/ul (0-0.8); ABS Neutrophils 11.9 10^3/ul (1.5-7.7); ABS Nucleated RBC 0 10^3/ul; Eosinophil % 1.4 % (0-6); Hematocrit 28 % (42-52); Hemoglobin 9.9 g/dl (14.0-18.0); Lymphocyte % 3.1 % (25-47); Mean Corpuscular HGB Conc 35 g/dl (31-36); Mean Corpuscular Hemoglobin 31 pg (27-31); Mean Corpuscular Volume 88 fL (80-94); Mean Platelet Volume 7.9 um3 (7.4-10.4); Nucleated Red Blood Cells % 0.1; Platelet Count 266 10^3/ul (150-450); Red Blood Count 3.21 10^6/ul (4.0-5.4); Red Cell Distribution Width 14 % (10.5-15); White Blood Count 14.1 10^3/ul (3.5-10.8)
[2017-11-09] MEDS: Omeprazole CAP* 20 MG PO SCH (06:38)
[2017-11-09 06:47] LABS: EGFR Non-African American 26.3 (>60)
[2017-11-09 06:56] LABS: INR 2.36 (0.77-1.02)
[2017-11-09] MEDS: Insulin GLARGINE(*) 1 UNITS UNIT SUBCUT SCH (08:17)
[2017-11-09] MEDS: Insulin LISPRO* 1 UNITS UNIT SUBCUT SCH ×3 (08:17→17:30)
[2017-11-09] MEDS: Bumetanide TAB* 1 MG PO SCH (08:18)
[2017-11-09] MEDS: PTO: Sitagliptin (NF) 50 MG TAB PO SCH (08:18)
[2017-11-09] MEDS: Amiodarone TAB* 200 MG PO SCH (08:19)
[2017-11-09] MEDS: Potassium Chlor TAB* 20 MEQ TAB.ER PO SCH (08:19)
[2017-11-09] MEDS: amLODIPine TAB* 5 MG PO SCH (08:20)
[2017-11-09] MEDS: Aspirin 81 mg CHEW TAB* 81 MG TAB.CHEW PO SCH (08:20)
[2017-11-09] MEDS: Spironolactone TAB* 25 MG PO SCH (08:20)
[2017-11-09] MEDS: Isosorbide Mononitrate ER TAB* 30 MG PO SCH (08:21)
[2017-11-09] MEDS: Magnesium Oxide TAB* 400 MG PO SCH (08:21)
--- NOTE | 2017-11-09 08:38 | PN ---
Subjective Date of Service: 11/09/17 Interval History: f/u ? infection UGIB, type 2 [place], CHF No dyspnea at rest No chest discomfort Good UOP, kidney function slightly worse, still mild volume + No arrhythmias on telemetry Medications Active Medications: Acetaminophen (Tylenol Tab*) 650 mg PO Q4H PRN PRN Reason: FEVER/PAIN Last Admin: 11/06/17 17:14 Dose: 650 mg Amiodarone HCl (Cordarone Tab*) 100 mg PO MoWeFr@0900 [facility] Last Admin: 11/09/17 08:19 Dose: 100 mg Amlodipine Besylate (Norvasc Tab*) 5 mg PO DAILY [facility] Last Admin: 11/09/17 08:20 Dose: 5 mg Aspirin (Aspirin 81 Mg Chew Tab*) 81 mg PO DAILY [facility] Last Admin: 11/09/17 08:20 Dose: 81 mg Atorvastatin Calcium (Lipitor*) 80 mg PO QPM [facility] Last Admin: 11/08/17 18:02 Dose: 80 mg Bumetanide (Bumex Tab*) 1 mg PO DAILY [facility] Last Admin: 11/09/17 08:18 Dose: 1 mg Bumetanide (Bumex*) 2 mg SLOW PUSH ONCE PRN PRN Reason: hypoxia Dextrose (D50w Syringe 50 Ml*) 12.5 gm IV PUSH .FOR FS < 60 - SS PRN PRN Reason: FS < 60 Insulin Glargine (Lantus(*)) 22 units SUBCUT QAM [facility] Last Admin: 11/09/17 08:17 Dose: 22 units Insulin Human Lispro (Humalog*) 0 units SUBCUT AC [facility] PRN Reason: Protocol Last Admin: 11/09/17 08:17 Dose: 3 unit Isosorbide Mononitrate (Imdur Er Tab*) 30 mg PO DAILY [facility] Last Admin: 11/09/17 08:21 Dose: 30 mg Magnesium Oxide (Magox 400 Tab*) 800 mg PO DAILY [facility] Last Admin: 11/09/17 08:21 Dose: 800 mg Omeprazole (Prilosec Cap*) 20 mg PO 0600 [facility] Last Admin: 11/09/17 06:38 Dose: 20 mg Ondansetron HCl (Zofran 40 Mg Vial*) 4 mg IV Q6H PRN PRN Reason: NAUSEA Potassium Chloride (Klor Con Er Tab*) 20 meq PO BID [facility] Last Admin: 11/09/17 08:19 Dose: 20 meq Sitagliptin Phosphate (Januvia (Nf)) 50 mg PO DAILY [facility] Last Admin: 11/09/17 08:18 Dose: 50 mg Spironolactone (Aldactone Tab*) 50 mg PO DAILY [facility] Last Admin: 11/09/17 08:20 Dose: 50 mg Objective Vital Signs: Temp Pulse Resp BP Pulse Ox 98.5 F 77 15 123/61 100 11/09/17 08:00 11/09/17 08:00 11/09/17 08:00 11/09/17 08:00 11/09/17 08:00 Oxygen Devices in Use Now: High Flow Nasal Cannula Appearance: very pleasant, somewhat frail Ears/Nose/Mouth/Throat: Clear Oropharnyx Neck: Trachea Midline, - - mild jvd Respiratory: Symmetrical Chest Expansion and Respiratory Effort, - - rales right base Cardiovascular: RRR, - - 3/6 systolic murmur Abdominal: NL Sounds; No Tenderness; No Distention Extremities: No Edema Skin: - - s/p R leg amputation, left leg as above Neurological: Alert and Oriented x 3 Laboratory Results: 11/09/17 05:53 11/09/17 05:53 INR (Anticoag Therapy) 2.36 (0.77-1.02) H 11/09/17 05:53 APTT 56.4 seconds (26.0-36.3) H 11/05/17 03:51 Total Bilirubin 0.70 mg/dL (0.2-1.0) 11/05/17 03:51 AST 29 U/L (13-39) 11/05/17 03:51 ALT 32 U/L (7-52) 11/05/17 03:51 Alkaline Phosphatase 51 U/L (34-104) 11/05/17 03:51 CK-MB (CK-2) 3.0 ng/mL (0.6-6.3) 11/07/17 04:40 B-Natriuretic Peptide 1723 pg/mL (-100) H 11/08/17 04:50 Total Protein 6.7 g/dL (6.4-8.9) 11/05/17 03:51 Albumin 3.7 g/dL (3.2-5.2) 06/07/18 03:51 Globulin 3.0 g/dL (2-4) 11/05/17 03:51 Albumin/Globulin Ratio 1.2 (1-3) 11/05/17 03:51 11/05/17 11/05/17 11/05/17 06:46 09:06 15:30 Troponin I 0.27 H* 0.67 H* 1.64 H* Diagnostic Imaging: cxr 11/07/2017:worsening CHF, left lower lobe opacity EKG Data: 03/2017 stress test I reviewed: Small to moderate sized inferior infarct with sophy-infarct ischemia ekg 11/05/2017: NSR 73 bpm, 1 avb, pvc, [address] depression v3- v6 slightly improved on repeat . Much more pronounced than minimal st depression seen prior 04/2017, minimal inferior ST depression unchanged Assessment/Plan Mr. 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 infection/LLL pneumonia triggering hyperglycemia, supratherapeutic INR with UGIB , anemia and enzymatically small type 2 [place] with acutely decompensated HFpEF/CKD volume overload worsened after pRBC transfusion, LVEF 50% with moderate and MR. EGD no GI source of bleeding may have come from ENT area. s/p vitamin K reversal - Continue aspirin - Continue statin - Continue diuresis, creatinine noted, would discharge on 1 mg of of bumex instead of chlorthalidone. Would not discharge with aldactone or potassium given prior hyperkalemia episodes and CKD - Continue imdur - Continue norvac - Not on beta-willie due to prior bradycardia - Continue amiodarone 100 mg M,W,F - Keep hgb 9 or greater - ID consult pending Thank you for allowing me to participate in the cardiovascular care of this patient. Please do not hesitate to contact me if there are questions or concerns.
--- NOTE | 2017-11-09 12:14 | CONS ---
DATE OF CONSULT: 11/09/2017. REQUESTING PHYSICIAN: Dr. Smith and Dr. Ellison. CONSULTING SERVICE: Infectious Disease. REASON FOR CONSULTATION: Leukocytosis. IMPRESSION: 1. Leukocytosis improving, 18 on admission, down to 14 today in the setting of congestive heart fail ure, upper airway nose bleed. He has had occasional cough which is nonproductive. Chest x-ray shows interstitial edema, small left pleural effusion. He has had progression of edema on the chest x-ray s. He has had no fever here. No recent other systemic symptoms to suggest an ongoing infection. 2. Left pleural effusion: Question related to congestive heart failure versus other, including lilibeth gnancy. 3. Aortic stenosis. 4. Sys-GS-bysybaltm [place]. RECOMMENDATIONS: Agree with observing off of antibiotics and repeat a chest x-ray in a month. If th e pleural effusion persists despite resolution of pulmonary edema, would pursue thoracentesis. HISTORY OF PRESENT ILLNESS: This is an 82-year-old man with coronary disease and aortic stenosis adm itted with chest pain on November 05. It was exertional, center of his chest. He was found to have a n gi-XH-qgimqbexg [place]. He had a leukocytosis on admission of 18,000. X-rays results as above at that t erlinda. He had no fevers, chills, or sweats, but had a cough which was occasionally productive. No abd ominal pain. No sinus symptoms. No diarrhea, dysuria, rash or joint pain. He has been diuresed. H e has had subsequent x-rays showing progression of edema, including most recently yesterday. He has required supplemental oxygen. He is on 5 liters down from 40 liters a minute yesterday. PAST MEDICAL HISTORY: 1. Moderate aortic stenosis. 2. History of congestive heart failure. 3. Atrial fibrillation. 4. Chronic anticoagulation, supratherapeutic this admission. 5. Hypertension. 6. Diabetes. 7. Hyperlipidemia. 8. Peripheral arterial disease. 9. Chronic kidney disease. 10. Coronary disease and history of [place]. 11. Right below the knee amputation. 12. Bilateral rotator cuff repair. 13. History of left knee arthroscopy. MEDICATIONS: Tylenol, Amiodarone, Amlodipine, aspirin, Lipitor, Bumex, insulin Glargine Imdur, magne sium oxide, Omeprazole, Sitagliptin, Spironolactone. ALLERGIES: LASIX, TRAMADOL, KATHRYN INHIBITOR, ARB, ALDACTONE. FAMILY HISTORY: He is adopted. SOCIAL HISTORY: Lives in [facility] with his . He does have some animals. No recent exposure t o hay or manure. REVIEW OF SYSTEMS: All negative except as noted above on a 14 point review of systems. PHYSICAL EXAM: General: He is awake and not in distress. Vital Signs: Temperature 37, heart rate 8 0, respiratory rate 17, blood pressure 120/54, oxygen saturation 100 percent on 5 liters. Neurologic : He is oriented times three, follows all commands. HEENT: There is no conjunctival hemorrhage. O ropharynx without lesions. Neck: Supple without mass. Lymph nodes: There is no inguinal, axillary , or epitrochlear lymphadenopathy. Heart: Regular rate and rhythm without murmurs, rubs or gallops. Lungs: Decreased breath sounds without egophony. Abdomen: Soft, nontender, nondistended. There ar e bowel sounds present. Skin: There is no rash or splinter hemorrhages. Musculoskeletal: There is no spine tenderness to palpation. Right below the knee amputation. Amp site well healed. Left foot: No ulcer. LABORATORY DATA: Creatinine 2.3, procalcitonin 0.1, white blood cell count 14, hemoglobin 10, platel ets 266. Please see impressions and recommendations as outlined above. Thank you for asking me to see Mr. Méndez in consultation. [id number]/[facility] #: [id number]
--- NOTE | 2017-11-09 13:24 | PN ---
Subjective Date of Service: 11/09/17 Interval History: Pt is feeling well. He denies any SOB or CP. He states he would like to get rid of the supplemental O2. He states he had a normal BM this AM. He has not done any walking yet today other than going from bed to chair. Objective Active Medications: Acetaminophen (Tylenol Tab*) 650 mg PO Q4H PRN PRN Reason: FEVER/PAIN Last Admin: 11/06/17 17:14 Dose: 650 mg Amiodarone HCl (Cordarone Tab*) 100 mg PO MoWeFr@0900 [facility] Last Admin: 11/09/17 08:19 Dose: 100 mg Amlodipine Besylate (Norvasc Tab*) 5 mg PO DAILY [facility] Last Admin: 11/09/17 08:20 Dose: 5 mg Aspirin (Aspirin 81 Mg Chew Tab*) 81 mg PO DAILY [facility] Last Admin: 11/09/17 08:20 Dose: 81 mg Atorvastatin Calcium (Lipitor*) 80 mg PO QPM [facility] Last Admin: 11/08/17 18:02 Dose: 80 mg Dextrose (D50w Syringe 50 Ml*) 12.5 gm IV PUSH .FOR FS < 60 - SS PRN PRN Reason: FS < 60 Insulin Glargine (Lantus(*)) 22 units SUBCUT QAM [facility] Last Admin: 11/09/17 08:17 Dose: 22 units Insulin Human Lispro (Humalog*) 0 units SUBCUT AC [facility] PRN Reason: Protocol Last Admin: 11/09/17 12:46 Dose: 4 unit Isosorbide Mononitrate (Imdur Er Tab*) 30 mg PO DAILY [facility] Last Admin: 11/09/17 08:21 Dose: 30 mg Magnesium Oxide (Magox 400 Tab*) 800 mg PO DAILY [facility] Last Admin: 11/09/17 08:21 Dose: 800 mg Omeprazole (Prilosec Cap*) 20 mg PO 0600 [facility] Last Admin: 11/09/17 06:38 Dose: 20 mg Ondansetron HCl (Zofran 40 Mg Vial*) 4 mg IV Q6H PRN PRN Reason: NAUSEA Sitagliptin Phosphate (Januvia (Nf)) 50 mg PO DAILY [facility] Last Admin: 11/09/17 08:18 Dose: 50 mg Vital Signs - 8 hr 11/09/17 11/09/17 11/09/17 05:44 06:00 07:00 Temperature Pulse Rate 75 75 Respiratory 13 18 16 Rate Blood Pressure 121/65 125/84 126/63 (mmHg) O2 Sat by Pulse 100 100 Oximetry 11/09/17 11/09/17 11/09/17 08:00 08:29 09:00 Temperature 98.5 F Pulse Rate 77 76 Respiratory 15 14 Rate Blood Pressure 123/61 115/52 (mmHg) O2 Sat by Pulse 100 100 99 Oximetry 11/09/17 11/09/17 11/09/17 10:00 11:00 12:00 Temperature Pulse Rate 78 75 76 Respiratory 17 16 16 Rate Blood Pressure 120/54 115/54 120/55 (mmHg) O2 Sat by Pulse 100 100 99 Oximetry Oxygen Devices in Use Now: Nasal Cannula - 2L-100% Appearance: Elderly male sitting up in chair, NAD Eyes: No Scleral Icterus Ears/Nose/Mouth/Throat: Mucous Membranes Moist Respiratory: Symmetrical Chest Expansion and Respiratory Effort, Clear to Auscultation - slightly diminshed breath sounds Cardiovascular: RRR, No Edema, - - III/ systolic murmur heard best at the RUSB Abdominal: NL Sounds; No Tenderness; No Distention Extremities: No Clubbing, Cyanosis, - - R BKA Skin: No Nodules or Sclerosis, - - few excoriations to anterior L leg Neurological: Alert and Oriented x 3 Result Diagrams: 11/09/17 05:53 11/09/17 05:53 Microbiology and Other Data: Microbiology 11/05/17 05:18 Stool Occult Blood (SHORTY) - Final Stool Assess/Plan/Problems-Billing Mr Méndez is an 82 yo M who has a h/o type II DM, CAD, PAD, HTN, HLD, PAF and stage III CKD who presented to the ER with c/o L sided chest pain and was found to have a possible pneumonia. - Patient Problems (1) GI bleed Current Visit: Yes Status: Acute Code(s): K92.2 - GASTROINTESTINAL HEMORRHAGE, UNSPECIFIED SNOMED Code(s): 05944269 Comment: Pt had EGD 11/07/17 that did not reveal a source of bleeding except that blood was seen in the pharynx and larynx which was likely secondary to nose bleeds. The patient reportedly told Dr. Hernandez that he has nosebleeds. I doubt however that was the cause of his drop in H/H. He received 3 units PRBC total and H/H is improving. Continue omeprazole and continue to hold anticoagulation for now. (2) NSTEMI (non-ST elevated myocardial infarction) Current Visit: No Status: Acute Priority: High Code(s): I21.4 - NON-ST ELEVATION (NSTEMI) MYOCARDIAL INFARCTION SNOMED Code(s): 589877736 Comment: The patient was felt to have a type II CA present on admission with then subsequently decompensated acute diastolic CHF after blood transfusion. Likely secondary to GI bleed +/- pneumonia. Echo shows hypokinesis of the inferior and inferolateral wall segements. Continue ASA, lipitor and imdur. No BBlocker secondary to bradycardia in the past. (3) Pneumonia Current Visit: Yes Status: Acute Code(s): J18.9 - PNEUMONIA, UNSPECIFIED ORGANISM SNOMED Code(s): 590473802 Comment: On admission there was concern for pneumonia (elevated WBC count and infiltrate on CXR) however procalcitonin negative. He was treated with 4 days of IV Abx (d/desmond yesterday). He last had a fever on 11/07/17 without clear cause. Will monitor off Abx and reassess tomorrow. Dr. Gaxiola has been consulted for persistent leukocytosis. (4) Hypertension Current Visit: Yes Status: Acute Code(s): I10 - ESSENTIAL (PRIMARY) HYPERTENSION SNOMED Code(s): 10650693 Comment: BP is under excellent control on amlodipine and imdur and diuretics (being stopped as of this afternoon). Monitor BP. (5) Stage III chronic kidney disease Current Visit: Yes Status: Acute Code(s): N18.3 - CHRONIC KIDNEY DISEASE, STAGE 3 (MODERATE) SNOMED Code(s): 300689490 Comment: The patient's creatinine has been worsening above his baseline in the setting of ongoing diuresis. Will stop bumex and spironolactone as of now and recheck BMP tomorrow. The patient does not look volume deplete so will not administer IVF. He may need diuretic therapy ongoing however perhaps every other day would be better. (6) Type 2 diabetes mellitus Current Visit: Yes Status: Chronic Comment: Sugars remain uncontrolled despite being on a higher dose of lantus than usual in addition to his usual dose of januvia. His A1c however is only 7.3% which indicates decent control at home. I will not adjust further at this time especially with his worsened renal function. This will need to be followed as an outpatient and adjusted as needed. (7) PAF (paroxysmal atrial fibrillation) Current Visit: Yes Status: Acute Code(s): I48.0 - PAROXYSMAL ATRIAL FIBRILLATION SNOMED Code(s): 259998977 Comment: Pt was regular on exam today. Will continue amiodarone at current dose. Anticoagulation currently on hold but should be resumed in next couple of weeks. (8) DVT prophylaxis Current Visit: Yes Status: Acute Code(s): ROH2811 - SNOMED Code(s): 731917187 Comment: SCD only secondary to GI bleed (9) Full code status Current Visit: Yes Status: Acute Code(s): Z78.9 - OTHER SPECIFIED HEALTH STATUS SNOMED Code(s): 456807010
[2017-11-09] MEDS: Atorvastatin* 80 MG TAB PO SCH (17:28)
[2017-11-09] MEDS ORDERED: Insulin LISPRO* 1 UNITS UNIT SUBCUT ONE (18:00)
[2017-11-10] MEDS: Omeprazole CAP* 20 MG PO SCH (05:47)
[2017-11-10 06:25] LABS: Hematocrit 28 % (42-52); Hemoglobin 9.6 g/dl (14.0-18.0); Mean Corpuscular HGB Conc 34 g/dl (31-36); Mean Corpuscular Hemoglobin 30 pg (27-31); Mean Corpuscular Volume 88 fL (80-94); Mean Platelet Volume 7.1 um3 (7.4-10.4); Platelet Count 274 10^3/ul (150-450); Red Blood Count 3.23 10^6/ul (4.00-5.40); Red Cell Distribution Width 14 % (10.5-15); White Blood Count 12.9 10^3/ul (3.5-10.8)
[2017-11-10 06:44] LABS: EGFR Non-African American 29.7 (>60)
[2017-11-10] MEDS: Insulin LISPRO* 1 UNITS UNIT SUBCUT SCH ×3 (08:07→18:14)
[2017-11-10] MEDS: PTO: Sitagliptin (NF) 50 MG TAB PO SCH (09:42)
[2017-11-10] MEDS: Isosorbide Mononitrate ER TAB* 30 MG PO SCH (09:42)
[2017-11-10] MEDS: Aspirin 81 mg CHEW TAB* 81 MG TAB.CHEW PO SCH (09:42)
[2017-11-10] MEDS: amLODIPine TAB* 5 MG PO SCH (09:43)
[2017-11-10] MEDS: Magnesium Oxide TAB* 400 MG PO SCH (09:45)
[2017-11-10] MEDS: Insulin GLARGINE(*) 1 UNITS UNIT SUBCUT SCH (09:46)
--- NOTE | 2017-11-10 12:42 | PN ---
Progress Note - Progress Note Date of Service: 11/10/17 SOAP: Subjective: CC: leukocytosis HPI: 82 year old man with and NSTEMI, pulmonary edema; had fever and leukocytosis. Both resolving off of antibiotics. No cough, rash, or diarrhea. Objective: Vital Signs Temp 36.3 C 11/10/17 11:19 Pulse 65 11/10/17 11:19 Resp 12 11/10/17 11:19 BP 119/53 11/10/17 11:19 Pulse Ox 100 11/10/17 11:19 Intake & Output 11/09/17 11/10/17 11/10/17 18:59 06:59 18:59 Intake Total 290 680 Output Total 1400 1200 Balance -1110 -520 Intake: Oral 290 680 Output: Urine 1400 1200 Other: # Bowel Movements 0 Gen:awake, no distress HEENT:no thrush Heart:RRR no murmur Lungs: no wheeze or rale Abd:+BS NTND soft Skin: no rash MSK: no spine tenderness Microbiology 11/05/17 06:46 Aerobic Blood Culture - Final Blood Venous No Growth Day 5 Anaerobic Blood Culture - Final No Growth Day 5 11/05/17 05:34 Aerobic Blood Culture - Final Blood Venous No Growth Day 5 Anaerobic Blood Culture - Final No Growth Day 5 11/06/17 18:10 Aerobic Blood Culture - Preliminary Blood Venous No Growth Day 3 Anaerobic Blood Culture - Preliminary No Growth Day 3 11/06/17 18:10 Aerobic Blood Culture - Preliminary Blood Venous No Growth Day 3 Anaerobic Blood Culture - Preliminary No Growth Day 3 Assessment: 1. fever, resolved 2. leukocytosis, improving off of antibiotics, no focal signs or symptoms 3. CAD, NSTEMI 4. acute systolic heart failure Plan: 1. continue to observe off of antibiotics, call if fever or increasing O2 requirement 35 minutes floor time >50% face to face and on the phone with his daughter discussing plans including lack of evidence for ongoing bacterial infection
--- NOTE | 2017-11-10 15:29 | PN ---
Subjective Date of Service: 11/10/17 Interval History: Pt is feeling well today. He has only walked a short distance today. He denies any chest pain or SOB. He is perplexed about his blood sugars being as high as they have been. Objective Active Medications: Acetaminophen (Tylenol Tab*) 650 mg PO Q4H PRN PRN Reason: FEVER/PAIN Last Admin: 11/06/17 17:14 Dose: 650 mg Amiodarone HCl (Cordarone Tab*) 100 mg PO MoWeFr@0900 [facility] Last Admin: 11/09/17 08:19 Dose: 100 mg Amlodipine Besylate (Norvasc Tab*) 5 mg PO DAILY [facility] Last Admin: 11/10/17 09:43 Dose: 5 mg Aspirin (Aspirin 81 Mg Chew Tab*) 81 mg PO DAILY [facility] Last Admin: 11/10/17 09:42 Dose: 81 mg Atorvastatin Calcium (Lipitor*) 80 mg PO QPM [facility] Last Admin: 11/09/17 17:28 Dose: 80 mg Dextrose (D50w Syringe 50 Ml*) 12.5 gm IV PUSH .FOR FS < 60 - SS PRN PRN Reason: FS < 60 Insulin Glargine (Lantus(*)) 22 units SUBCUT QAM [facility] Last Admin: 11/10/17 09:46 Dose: 22 units Insulin Human Lispro (Humalog*) 0 units SUBCUT AC [facility] PRN Reason: Protocol Last Admin: 11/10/17 12:40 Dose: 4 unit Isosorbide Mononitrate (Imdur Er Tab*) 30 mg PO DAILY [facility] Last Admin: 11/10/17 09:42 Dose: 30 mg Magnesium Oxide (Magox 400 Tab*) 800 mg PO DAILY [facility] Last Admin: 11/10/17 09:45 Dose: 800 mg Omeprazole (Prilosec Cap*) 20 mg PO 0600 [facility] Last Admin: 11/10/17 05:47 Dose: 20 mg Ondansetron HCl (Zofran 40 Mg Vial*) 4 mg IV Q6H PRN PRN Reason: NAUSEA Sitagliptin Phosphate (Januvia (Nf)) 50 mg PO DAILY [facility] Last Admin: 11/10/17 09:42 Dose: 50 mg Vital Signs - 8 hr 11/10/17 11/10/17 08:00 11:19 Temperature 97.3 F Pulse Rate 65 Respiratory 12 12 Rate Blood Pressure 119/53 (mmHg) O2 Sat by Pulse 100 Oximetry Oxygen Devices in Use Now: None Appearance: Elderly male lying in bed, NAD Eyes: No Scleral Icterus Ears/Nose/Mouth/Throat: Mucous Membranes Moist Respiratory: Symmetrical Chest Expansion and Respiratory Effort, Clear to Auscultation Cardiovascular: RRR, No Edema, - - III/ systolic murmur heard best at the RUSB Abdominal: NL Sounds; No Tenderness; No Distention Extremities: No Clubbing, Cyanosis Skin: - - R BKA Neurological: Alert and Oriented x 3 Result Diagrams: 11/10/17 06:08 11/10/17 06:08 Microbiology and Other Data: Microbiology 11/05/17 05:18 Stool Occult Blood (SHORTY) - Final Stool Assess/Plan/Problems-Billing Mr Méndez is an 82 yo M who has a h/o type II DM, CAD, PAD, HTN, HLD, PAF and stage III CKD who presented to the ER with c/o L sided chest pain and was found to have a possible pneumonia. - Patient Problems (1) GI bleed Current Visit: Yes Status: Acute Code(s): K92.2 - GASTROINTESTINAL HEMORRHAGE, UNSPECIFIED SNOMED Code(s): 93231946 Comment: H/H stable. Continue to hold anticoagulation x1 more week. Continue omeprazole. I doubt the nose bleeds were the cause of his drop in H/H as the patient indicates the bleeding was mostly noted when he blew his nose and they were not profuse or persistent. (2) NSTEMI (non-ST elevated myocardial infarction) Current Visit: Yes Status: Acute Code(s): I21.4 - NON-ST ELEVATION (NSTEMI) MYOCARDIAL INFARCTION SNOMED Code(s): 246511295 Comment: The patient was felt to have a type II [place] present on admission with then subsequently decompensated acute diastolic CHF after blood transfusion. Likely secondary to GI bleed +/- pneumonia. Echo shows hypokinesis of the inferior and inferolateral wall segements. Continue ASA, lipitor and imdur. No BBlocker secondary to bradycardia in the past. The patient will follow up with Dr. Hill in 7-10 days post discharge. (3) Pneumonia Current Visit: Yes Status: Acute Code(s): J18.9 - PNEUMONIA, UNSPECIFIED ORGANISM SNOMED Code(s): 712626966 Comment: On admission there was concern for pneumonia (elevated WBC count and infiltrate on CXR) however procalcitonin negative. Leukocytosis is resolving. No further fever. Continuet to withhold ABx. (4) Hypertension Current Visit: Yes Status: Acute Code(s): I10 - ESSENTIAL (PRIMARY) HYPERTENSION SNOMED Code(s): 12260162 Comment: BP is under excellent control on amlodipine and imdur. (5) Stage III chronic kidney disease Current Visit: Yes Status: Acute Code(s): N18.3 - CHRONIC KIDNEY DISEASE, STAGE 3 (MODERATE) SNOMED Code(s): 300652734 Comment: Creatinine is slightly better today. Continue to hold diuretic therapy (no signs of fluid overload) and recheck BMP tomorrow. May start QOD diuretic therapy on discharge but he will need his renal function monitored closely. (6) Type 2 diabetes mellitus Current Visit: Yes Status: Chronic Comment: Sugars remain uncontrolled despite being on a higher dose of lantus than usual in addition to his usual dose of januvia. His A1c however is only 7.3% which indicates decent control at home. I will not adjust further at this time especially with his worsened renal function. This will need to be followed as an outpatient and adjusted as needed. The patient will follow up with Dr. Vera with his blood sugar log at home to make any adjustments needed. (7) PAF (paroxysmal atrial fibrillation) Current Visit: Yes Status: Acute Code(s): I48.0 - PAROXYSMAL ATRIAL FIBRILLATION SNOMED Code(s): 628704704 Comment: Pt was regular on exam today. Will continue amiodarone at current dose. Anticoagulation currently on hold but should be resumed 1 week. (8) DVT prophylaxis Current Visit: Yes Status: Acute Code(s): [id number] - SNOMED Code(s): 778655893 Comment: SCD only secondary to GI bleed (9) Full code status Current Visit: Yes Status: Acute Code(s): Z78.9 - OTHER SPECIFIED HEALTH STATUS SNOMED Code(s): 794376786
[2017-11-10] MEDS: Atorvastatin* 80 MG TAB PO SCH (18:14)
[2017-11-11] MEDS: Omeprazole CAP* 20 MG PO SCH (05:31)
[2017-11-11] MEDS: Magnesium Oxide TAB* 400 MG PO SCH (08:01)
[2017-11-11] MEDS: PTO: Sitagliptin (NF) 50 MG TAB PO SCH (08:01)
[2017-11-11] MEDS: Amiodarone TAB* 200 MG PO SCH (08:02)
[2017-11-11] MEDS: amLODIPine TAB* 5 MG PO SCH (08:02)
[2017-11-11] MEDS: Isosorbide Mononitrate ER TAB* 30 MG PO SCH (08:02)
[2017-11-11] MEDS: Aspirin 81 mg CHEW TAB* 81 MG TAB.CHEW PO SCH (08:02)
[2017-11-11] MEDS: Insulin GLARGINE(*) 1 UNITS UNIT SUBCUT SCH (08:03)
[2017-11-11] MEDS: Insulin LISPRO* 1 UNITS UNIT SUBCUT SCH ×2 (08:03→12:10)
[2017-11-11 11:02] LABS: EGFR Non-African American 29.3 (>60)
[2017-11-11 11:26] VITALS: BP 130/52
--- NOTE | 2017-11-12 10:32 | DS ---
CC: Dr. Harp; Dr. Hill * DISCHARGE SUMMARY: DATE OF ADMISSION: 11/05/17. DATE OF DISCHARGE: 11/11/17. PRIMARY CARE PROVIDER: Dr. Harp. SPLIT AND DRUM ROOM SUPERVISOR: Dr. Hill. PRINCIPAL DIAGNOSES: 1. Probable gastrointestinal bleed of unclear etiology. 2. Type 2 non-ST elevation myocardial infarction (demand ischemia). 3. Acute decompensated heart failure, status post blood transfusion - resolved. 4. Elevated creatinine above baseline, not meeting criteria for acute kidney injury or failure. 5. Questionable pneumonia. SECONDARY DIAGNOSES: 1. Type 2 diabetes. 2. Paroxysmal atrial fibrillation. 3. Hypertension. DISCHARGE MEDICATIONS: 1. Lipitor 80 mg p.o. nightly. 2. Amlodipine 7.5 mg p.o. daily. 3. Januvia 50 mg p.o. daily. 4. Multivitamin one tab p.o. daily. 5. Imdur 30 mg p.o. daily. 6. Calcium plus D one tab p.o. daily. 7. Aspirin 81 mg p.o. daily. 8. Amiodarone 100 mg p.o. Thursday, Thursday, Thursday. 9. Omeprazole 20 mg p.o. daily. 10. Lantus 25 units subcutaneous q.a.m. (new dose). HOSPITAL COURSE: Mr. Méndez is an 82-year-old male, who presented to the emergency room on 11/05/17 with complaints of chest pain and shortness of breath. The patient was noted to have an INR of 7 with anemia. Additionally, there was concern for possible pneumonia on admission. The patient was treated with IV antibiotics. The patient did have a significant leukocytosis with a white count peaking at 18.0. This trended down to 12.9 the day prior to discharge. The patient was having fevers up until 11/07/17; however, he has been afebrile since. The patient has not received any further antibiotic therapy and appears stable from a respiratory standpoint. In terms of the chest pain, the etiology of this was felt to be secondary to possible pneumonia; however, again this is not clear. The patient bumped his troponin to 1.64. However, given his chronic kidney disease, it was felt that a CK- MB would be more beneficial. It was 15.4 on 11/06/17 and down to 3 on 02/16. Dr. Hill from Cardiology consulted and felt that this was likely representing a type 2 NSTEMI or demand ischemia. As the patient had a drop in his hemoglobin and hematocrit, he received 3 units of packed red blood cells. With the blood transfusions, the patient developed acute decompensated diastolic congestive heart failure. The patient did require diuresis for this. He has a history of LASIX allergy. Therefore, Bumex was utilized. The patient no longer appears to be volume overloaded. He has been off diuretics for the last two days, as he has had an increase in his creatinine. His baseline creatinine level is 1.7 to 1.9; however, on 11/09/17, his creatinine was up to 2.39. With holding his diuretics, his creatinine is now relatively stable and in the 2.15 to 2.2 range. I have asked for the patient to get a basic metabolic panel on 11/20/17. The patient is being discharged home without any standing diuretics again, as he appears euvolemic. The patient has been instructed if he develops any significant edema or concerns for heart failure, he can contact Dr. Hill's office, which he has done in the past, to be recommended to take diuretic therapy at home. The patient did undergo EGD, which did not reveal the cause of the patient's drop in hemoglobin and hematocrit. Blood was noted in the pharynx and larynx, which could represent nosebleed; however, the patient indicates that typically he has minimal amount of nose bleeding when it does occur. I doubt this is the cause of the drop in his hemoglobin and hematocrit. The patient has been off his Coumadin since admission. The patient will need to have anticoagulation restarted. Eliquis has been proposed to the patient. I did not start this at this time. I have made an appointment for the patient to follow up with Dr. Hill on 11/23/17. At that time, I believe it would be safe to restart anticoagulation if Dr. Hill agrees. In terms of the patient's type 2 diabetes, his hemoglobin A1c on admission was mildly elevated at 7.3%; however, during the course of the patient's hospitalization, his sugars have ranged from 145, all the way to greater than 444. It is unclear to me as to why the blood sugars are still elevated at this time given his A1c appears to indicate that his sugars are under acceptable control at home. The patient's Lantus dose has been increased from 12 units daily to 25 units daily. I have asked the patient to check his blood sugars morning and night and keep a record of this. The patient follows with Dr. Vera for his diabetes management. The patient will contact Dr. Vera's office for further recommendations in adjusting his Lantus dose if needed. I did inform the patient that if his blood sugars start trending down, his Lantus dose will need to be decreased and perhaps this too would warrant a call to Dr. Vera's office. On the day of discharge, the patient is awake, alert, and oriented, sitting in a chair on room air, in no acute distress. Cardiac exam reveals a normal S1, S2 with a regular rate and rhythm. There is no lower extremity edema. Lungs are clear to auscultation bilaterally. Abdomen is soft, nontender, nondistended. The patient has a BKA on the right. There are scabbed over lesions on the anterior left lower leg, which the patient states are from hitting his leg on different items. Again, at this point, the patient was felt to be stable for discharge home. FOLLOWUP CONCERNS: The patient is being discharged to home today, 11/11/17. ACTIVITY LEVEL: As tolerated. DIET: No added salt, diabetic. CONDITION ON DISCHARGE: Stable. The patient is to follow up with Dr. Harp in the next four to seven [address] Hill on 11/23/17 at 3:20 p.m. TIME SPENT: Forty minutes was spent discharging this patient. [id number]/[facility] #: [id number] MTDD
== END 2017-11-11 15:07 | disposition home or self-care (01) | DRG 280 ==
LOC: ED 03:32 → MEDTELE 05:16 → ICU 18:15 → MEDTELE 11-07 14:21 → ICU 11-07 18:08 → MEDTELE 11-09 15:20
PROVIDERS: ADMIT Internal Medicine; ATTEND Hospitalist
PROC: 30233N1 Transfusion of Nonautologous Red Blood Cells into Peripheral Vein, Percutaneous Approach (ICD-10-PCS; principal; 2017-11-05)
PROC: 0DB78ZX Excision of Stomach, Pylorus, Via Natural or Artificial Opening Endoscopic, Diagnostic (ICD-10-PCS; 2017-11-07)
DX: I21.A1 Myocardial infarction type 2 (principal); J18.9 Pneumonia, unspecified organism; I50.41 Acute combined systolic (congestive) and diastolic (congestive) heart failure; K92.1 Melena; 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 disease with heart failure and stage 1 through stage 4 chronic kidney disease, or unspecified chronic kidney disease; D68.9 Coagulation defect, unspecified; E11.51 Type 2 diabetes mellitus with diabetic peripheral angiopathy without gangrene; E86.0 Dehydration; E11.21 Type 2 diabetes mellitus with diabetic nephropathy; I35.0 Nonrheumatic aortic (valve) stenosis; N18.3 Chronic kidney disease, stage 3 (moderate); E78.5 Hyperlipidemia, unspecified; E11.22 Type 2 diabetes mellitus with diabetic chronic kidney disease; E11.36 Type 2 diabetes mellitus with diabetic cataract; I25.10 Atherosclerotic heart disease of native coronary artery without angina pectoris; R04.0 Epistaxis; D64.9 Anemia, unspecified; E87.6 Hypokalemia; I48.0 Paroxysmal atrial fibrillation; I34.0 Nonrheumatic mitral (valve) insufficiency; E11.65 Type 2 diabetes mellitus with hyperglycemia; E83.42 Hypomagnesemia; Z88.8 Allergy status to other drugs, medicaments and biological substances; Z89.511 Acquired absence of right leg below knee; I25.2 Old myocardial infarction; Z79.82 Long term (current) use of aspirin; Z79.4 Long term (current) use of insulin; Z88.6 Allergy status to analgesic agent
CPT/HCPCS: 36415; 36600; 71045; 80048; 80053; 81003; 81015; 82272; 82550; 82553; 82570; 82803; 82947; 83036; 83735; 83880; 84145; 84300; 84484; 85014; 85018; 85025; 85027; 85610; 85730; 86850; 86900; 86901; 86922; 87040; 87077; 87086; 87641; 87899; 93005; 93306; 99156; 99157; 99284; A9270-GY; J0696; J1956; J2250; J3010; J3475; P9040

== ENCOUNTER 2017-12-02 15:04 | Observation (INO) | payer MEDICARE, BC ==
[2017-12-02 15:55] LABS: Hematocrit 25 % (42-52); Hemoglobin 8.3 g/dl (14.0-18.0); Mean Corpuscular HGB Conc 33 g/dl (31-36); Mean Corpuscular Hemoglobin 29 pg (27-31); Mean Corpuscular Volume 87 fL (80-94); Mean Platelet Volume 7.6 um3 (7.4-10.4); Platelet Count 239 10^3/ul (150-450); Red Blood Count 2.91 10^6/ul (4.00-5.40); Red Cell Distribution Width 14 % (10.5-15); White Blood Count 14.7 10^3/ul (3.5-10.8)
[2017-12-02 15:58] LABS: INR 1.25 (0.77-1.02)
[2017-12-02 16:04] LABS: ABS Basophils 0.1 10^3/ul (0-0.2); ABS Eosinophils 0 10^3/ul (0-0.6); ABS Lymphocytes 0.4 10^3/ul (1.0-4.8); ABS Monocytes 1.7 10^3/ul (0-0.8); ABS Neutrophils 12.4 10^3/ul (1.5-7.7); ABS Nucleated RBC 0 10^3/ul; EGFR Non-African American 40.3 (>60); Eosinophil % 0.2 % (0-6); Nucleated Red Blood Cells % 0
--- NOTE | 2017-12-02 16:05 | RAD ---
INDICATION: Short of breath COMPARISON: November 08, 2017 TECHNIQUE: An AP portable view obtained at 1550 hours is submitted. FINDINGS: Bones/Soft Tissues: There are no acute bony findings. Cardiomediastinal: The central pulmonary vessels and interstitium are prominent compatible with moderate interstitial congestion. There is mild improvement. Lungs: Interstitial and alveolar change with mild improvement. Pleura: Small bilateral effusions. Other: None IMPRESSION: MODERATE VASCULAR CONGESTION. THERE IS INTERVAL IMPROVEMENT
[2017-12-02] MEDS ORDERED: Bumetanide IV* 0.25 MG/ML 4 ML VIAL SLOW PUSH ONE (17:29)
[2017-12-02] MEDS ORDERED: Dextrose 50% Syringe 50 ML* 25 GM/50 ML SYRINGE IV PUSH PRN (17:29)
[2017-12-02] MEDS ORDERED: Acetaminophen TAB* 325 MG PO PRN (17:29)
[2017-12-02] MEDS ORDERED: Ondansetron INJ* 2 MG/ML VIAL IV PRN (17:29)
[2017-12-02] MEDS ORDERED: Amiodarone TAB* 200 MG PO SCH (17:45)
[2017-12-02] MEDS ORDERED: Atorvastatin* 80 MG TAB PO SCH (18:00)
[2017-12-02 18:49] LABS: Hematocrit 29 % (42-52); Hemoglobin 9.3 g/dl (14.0-18.0)
[2017-12-02] MEDS: Apixaban* 2.5 MG TAB PO SCH (19:59)
[2017-12-02 20:05] LABS: Urine Appearance Clear; Urine Blood Negative (Negative); Urine Color Yellow; Urine Ketones Negative (Negative); Urine Protein Negative (Negative); Urine Specific Gravity 1.009 (1.010-1.030); Urine Urobilinogen Negative (Negative)
--- NOTE | 2017-12-02 22:01 | HP ---
CC: Dr. Harp; Dr. Hill* HISTORY AND PHYSICAL: DATE OF ADMISSION: 12/02/17 PRIMARY CARE PROVIDER: Dr. Harp. ATTENDING PHYSICIAN WHILE IN THE HOSPITAL: Hanna Amaral MD* (report dictated by Eldon Grimes NP) CHIEF COMPLAINT: 1. Chest discomfort. 2. Shortness of breath. 3. Weight gain. HISTORY OF PRESENT ILLNESS: Mr. Méndez is an 82-year-old male patient with a recent complex hospitalization here. He was admitted with a supratherapeutic INR, found to have demand ischemia, type 2 myocardial infarction, pneumonia. He was treated, was sent home. He required 3 units of blood. No obvious source of bleeding was found. Question of a nasopharyngeal source. He has been doing well. He has followed up with Dr. Hill, his mainframe systems programmer, on 11/23. He seemed to be doing well there. No complaints. Unfortunately though in the last day and a half, 2 days, he has had progressive worsening shortness of breath and weight gain and that is why he came back today. He has a complex history in the sense that he has a history of diabetes, hypertension, hyperlipidemia, PAD, AFib, CKD, aortic stenosis, history of NH, CAD, CHF, questionable history of GI bleed, and recent pneumonia. He states over the last couple of days, he has had progressive worsening shortness of breath. He states he is not really sure if lying down makes any worse. He has been coughing and swallowing a lot of phlegm. He has noted that his legs have become more swollen and he states he has gained 3 pounds in the last 2 days. He was not discharged home on diuretics given his allergies to medications and his worsening kidney function. He came into the ER. It was noted his troponin was 0.16. His H and H had dropped a little bit. He is not reporting any tarry stools, black stools. No fevers. There was concern because his x-ray looked about the same as when he came in previously and given his story, there was concern for CHF and we were asked to evaluate for admission. He does admit to having in the last day and a half intermittent chest discomfort, which is not any worse with exertion. He described it as a burning discomfort and a pressure at times. He states the discomfort is now gone. PAST MEDICAL HISTORY: Significant for: 1. Diabetes. 2. Hypertension. 3. Hyperlipidemia. 4. AFib. 5. PAD. 6. CKD. 7. Aortic stenosis. 8. History of NH. 9. CAD. 10. History of CHF. 11. GI bleed. 12. History of pneumonia. PAST SURGICAL HISTORY: 1. The patient has had a right traumatic BKA. 2. He has had bilateral rotator cuff repair. 3. Left knee surgery. HOME MEDICATIONS: According to the patient include: 1. Lantus 25 units subcu daily. 2. Imdur 30 mg p.o. daily. 3. Apixaban 2.5 mg p.o. b.i.d. 4. Amlodipine 10 mg p.o. daily. 5. Amiodarone 100 mg p.o. Thursday, Thursday, Thursday. 6. Calcium 1 tablet p.o. daily. 7. Lipitor 80 mg daily. 8. Aspirin 81 mg daily. 9. Januvia 50 mg daily. 10. Multivitamin 1 tablet daily. ALLERGIES TO MEDICATIONS: Include LASIX, TRAMADOL, KATHRYN INHIBITORS, ARBS, ALDACTONE, and DIOVAN. FAMILY HISTORY: The patient is adopted. SOCIAL HISTORY: He does not smoke, does not drink. Surrogate decision maker is his and daughter. REVIEW OF SYSTEMS: There is no documented fever. He is admitting to having a 3 - pound weight change. He denied having any double vision. He denies having any ear discharge. He did admit to having some rhinorrhea, but no sore throat, no thyroid enlargement. He did admit to chest pressure. He denies orthopnea. He does admit to dyspnea on exertion. No abdominal pain. No nausea, no vomiting. There is no dysuria, no frequency. No seizure. No loss of consciousness is reported. No pruritus. Review of 14 systems was completed, all others negative. PHYSICAL EXAMINATION GENERAL: At this time, Mr. Méndez is an 82-year-old male patient. He is sitting in the ED stretcher. He does not appear to be in any acute distress. Appears to be well nourished, well developed. VITAL SIGNS: Blood pressure 125/68, pulse 63, respirations 18, O2 sat 94%, temperature 99.5. HEENT: Head: Atraumatic, normocephalic. Eyes: EOMs are intact. Sclerae anicteric, not pale. Throat: Oral mucosa appears to be moist. No oropharyngeal erythema. NECK: Supple. LUNGS: [place] crackles in the bases bilaterally. Equal diaphragmatic expansion. HEART: Sounds S1, S2. He does have a grade 2/3 murmur heard in the aortic listening area, systolic in nature. ABDOMEN: Soft, flat, nontender. Bowel sounds present. EXTREMITIES: He again has a right BKA. His left lower extremity, he did have + 2 pitting edema. He had 5/5 strength. NEUROLOGIC: He is awake, alert, oriented x3. Speech good. Tongue is midline. Ppap Coordinator are equal. No gross focal deficits. SKIN: Intact. DIAGNOSTIC STUDIES/LAB DATA: WBC 14.7, RBC of 2.91, hemoglobin was 9.6, hematocrit 25, his platelet count was 239. His INR was 1.25, PTT of 33.9. D- dimer 410. Sodium is 134, potassium of 3.5, chloride 95, bicarb was 29, BUN 63, which is near his baseline, creatinine 1.69, which again is near his baseline, it is improved. His lactate is 0.7. Calcium was 9.6. Glucose 79. Total bili 1.1, AST 35, ALT 33, alk phos 56. CK 45. Troponin 0.16. CRP 94. BNP of 993. Albumin of 3.7. Chest x-ray obtained today. When I review it, it does appear that he has again interstitial edema. It looks like it is slightly improved from the previous chest x-ray. He does have an EKG obtained today showing a normal sinus rhythm with PAC. He did have inversions in V4, 5, 6, and V3. He had mild depression in lead II, III, and aVF. When you look previously , he has had that previously, but it is improved today compared to the previous EKG. He did have an echo last time he was here, EF of 50% to 55%. He did have some basal inferolateral and mid inferior wall segment are hypokinetic. Old medical records were reviewed. ASSESSMENT AND PLAN: Mr. Méndez is an 82-year-old male patient with a complex medical history coming in to our emergency department today with complaints again of chest discomfort described as burning at times and pressure at times in the epigastric area. In addition to this, he is also complaining of increasing shortness of breath and weight gain. He will be admitted under inpatient status for: 1. Chest discomfort. Again, this could be secondary to some demand ischemia he is having from what sounds like congestive heart failure exacerbation. I will trend his troponins. He is chest pain-free now. I am going to go ahead and continue him on his statin, Norvasc. In addition to this, he is not on beta -blockers because of bradycardia in the past. We will continue his nitrates, trend the troponins, serial EKGs and follow. If he persists to have this or the enzymes get elevate, I will get Cardiology involved. 2. Congestive heart failure exacerbation. I suspect that this is probably related to the fact that he did not go back on a diuretic. Given his kidney function, I am going to give him some Bumex here, diurese him, daily weights and continue to follow him, place him on telemetry. 3. Anemia. Etiology unclear. I do not have any obvious evidence of bleeding. He has not had any bloody nose or tarry stools. GI scope was done just a month ago, which was negative for any source of bleeding. I will at this point go ahead and follow the H and Hs, type and screen him and monitor. 4. Leukocytosis. Again, etiology unclear. It could be leukemoid reaction. His x- ray is not impressive for pneumonia. I will check his urine, panculture him, monitor him. Should he have any fevers, I will put him on broad spectrum antibiotics. 5. Diabetes. He will be on a lispro sliding scale. 6. Chronic kidney disease. Creatinine is stable. Follow. 7. Hypertension. Continue meds as prescribed. 8. Hyperlipidemia. Continue statin therapy. 9. Atrial fibrillation. He appears to be in sinus. He is well controlled. We will continue his Eliquis for the time being. If the H and H drops, then I would stop the Eliquis. We will monitor this with again serial H and Hs. 10. Elevated troponin. Again, this could just be trending down from his previous troponin. We will go ahead and continue to trend these. 11. Peripheral artery disease. Continue his statin, aspirin therapy. 12. History of coronary artery disease. Again, continue statin, aspirin therapy. He is on beta-willei because of bradycardia in the past. 13. DVT prophylaxis. He is on Eliquis. 14. Code status. Full code. 15. Fluids, electrolytes, and nutrition. He can have a heart healthy diet. TIME SPENT: Time spent on admission 60 minutes, greater than half the time spent [id number] with the patient obtaining my history and physical; other half the time spent going over the plan of care with the patient and implementing plan of care. I did discuss the plan of care with my attending, Dr. Amaral; she is in agreement. ELDON GRIMES, DIRECTOR OF MAINTENANCE [id number]/CPS #: [id number] KUSUM
[2017-12-02] MEDS ORDERED: Aspirin TAB* 325 MG PO ONE (22:19)
[2017-12-02] MEDS ORDERED: Aspirin 81 mg CHEW TAB* 81 MG TAB.CHEW PO ONE (22:19)
--- NOTE | 2017-12-02 22:36 | ED ---
Neto Villatoro Simon, scribed for Yvette Douglas MD on 12/02/17 at 1538 . Shortness of Breath - HPI Summary HPI Summary: This patient is an 82 year old M presenting to [facility] with a chief complaint of chest discomfort since past couple of days (11/30/17). He endorses the pain as worse upon inspiration, 3 lb weight gain over the past 3 days, constant phlegm build-up in back of throat, non-productive cough. He denies abd pain, sick family at home (lives with ). PMHx recent [facility] hospitalization 11/05/17 with pneumonia, evaluation for GI bleed with decrease H/H, had endoscopy with no ulcers; received 3 units blood transfusion at that time. Had elevated troponins. Dr. Hill DC'd pt's warfarin and started pt on Eliquis after this. Does not have O2 at home. - History of Current Complaint Chief Complaint: EDShortnessOfBreath Time Seen by Provider: 12/02/17 15:26 Hx Obtained From: Patient Onset/Duration: Lasting Days, Still Present Timing: Constant Current Severity: Moderate Dyspnea At: Rest Aggrevating Factors: Deep Breaths Alleviating Factors: Nothing Associated Signs & Symptoms: Cough (Nonproductive), Chest Pain w/Cough, Edema - with weight gain Related History: Similar Episode - recent [facility] hosp - Allergy/Home Medications Allergies/Adverse Reactions: Allergies Allergy/AdvReac Type Severity Reaction Status Date / Time furosemide Allergy Mild Rash Verified 12/07/17 10:20 tramadol Allergy Mild Dizziness Verified 12/07/17 10:20 KATHRYN Inhibitors Allergy Unknown Verified 12/07/17 10:20 Reaction Details spironolactone Allergy Rash Verified 12/07/17 10:20 valsartan Allergy Unknown Verified 12/07/17 10:20 Reaction Details angiotensin receptor willie Allergy Unknown Uncoded 12/07/17 10:20 Reaction Details Home Medications: Home Medications Apixaban* [Eliquis*] 2.5 mg PO BID 12/02/17 [History Confirmed 12/02/17] Insulin GLARGINE(*) [Lantus(*)] 25 units SUBCUT QAM 12/02/17 [History Confirmed 12/02/17] Isosorbide Mononitrate ER TAB* [Imdur ER TAB*] 30 mg PO DAILY 12/02/17 [History Confirmed 12/02/17] PMH/Surg Hx/FS Hx/Imm Hx Previously Healthy: No Endocrine/Hematology History: Reports: Hx Diabetes Denies: Hx Thyroid Disease Cardiovascular History: Reports: Hx Angina, Hx Atrial Fibrillation, Hx Congestive Heart Failure, Hx Hypercholesterolemia, Hx Hypertension, Hx Peripheral Vascular Disease Denies: Hx Coronary Artery Disease, Hx Myocardial Infarction, Hx Valvular Heart Disease Respiratory History: Reports: Hx Pneumonia History: Reports: Hx Renal Disease Musculoskeletal History: Denies: Hx Arthritis, Hx Osteoporosis Sensory History: Reports: Hx Cataracts, Hx Contacts or Glasses Denies: Hx Hearing Aid Opthamlomology History: Reports: Hx Cataracts, Hx Contacts or Glasses Neurological History: Denies: Hx Headaches, Hx Seizures, Hx Transient Ischemic Attacks (TIA) - Surgical History Surgery Procedure, Year, and Place: RIGHT LEG AMPUTATION, BILAT ROTATOR CUFFS Infectious Disease History: No Infectious Disease History: Denies: Traveled Outside the [place] in Last 30 Days - Family History Known Family History: Positive: Unknown - Adopted Family History: Unknown - pt is adopted - Social History Lives: With Family Alcohol Use: None Hx Substance Use: No Substance Use Type: Reports: None Hx Tobacco Use: No Smoking Status (MU): Never Smoked Tobacco Have You Smoked in the Last Year: No Review of Systems Negative: Fever Positive: Chest Pain Positive: Shortness Of Breath, Cough Negative: Abdominal Pain Positive: Edema Skin: Negative Neurological: Negative Psychological: Normal All Other Systems Reviewed And Are Negative: Yes Physical Exam - Summary Physical Exam Summary: Appearance: Chronically ill-appearing, minimal pain distress, well-nourished Skin: Warm, color reflects adequate perfusion, dry Head: Normal Head/Face inspection, atraumatic Eyes: Conjunctiva clear ENT: Normal inspection Neck: Supple, no nodes, no JVD Respiratory: bibasilar rales, no respiratory distress Cardio: RRR, No murmur, pulses normal, brisk capillary refill Abdomen: Soft, nontender Bowel sounds: Present Musculoskeletal: Strength Intact/ROM intact, no calf tenderness, no edema, right BKA, wearing prosthesis. Psychological: Normal Neuro: Alert, muscle tone normal, no focal deficit Triage Information Reviewed: Yes Vital Signs On Initial Exam: Initial Vitals Temp Pulse Resp BP Pulse Ox 99.5 F 70 20 122/57 96 12/02/17 15:05 12/02/17 15:05 12/02/17 15:05 12/02/17 15:05 12/02/17 15:05 Vital Signs Reviewed: Yes Diagnostics - Vital Signs Vital Signs Temp Pulse Resp BP Pulse Ox 12/02/17 15:29 66 16 119/50 94 12/02/17 15:28 10 12/02/17 15:05 99.5 F 70 20 122/57 96 - Laboratory Result Diagrams: 12/03/17 06:35 12/03/17 06:35 Lab Statement: Any lab studies that have been ordered have been reviewed, and results considered in the medical decision making process. - Radiology cxr Xray Interpretation: Positive (See Comments) Radiology Interpretation Completed By: Radiologist - MODERATE VASCULAR CONGESTION. THERE IS INTERVAL IMPROVEMENT. Dr. Douglas has reviewed this report. - EKG 1510 Cardiac Rate: NL - 69 EKG Rhythm: Atrial Fibrillation ST Segment: Non-Specific - non-specific ST segment and downsloping II, AVF, V3- V6. Ectopy: None EKG Interpretation: nl IV CT, nl QTc, nl axis, non-specific ST seg, downsloping II, AVF, V3-V6. EKG Comparison: Other - compared with 11/06/17, pt is now in AFib Re-Evaluation - Re-Evaluation First Eval Re-Evaluation Time: 17:30 Change: Unchanged Comment: advised of labs and CXR results, and plan to admit Course/Dx - Course Course Of Treatment: An 82-year-old M presents to the ED with a CC of CP secondary to SOB for 2 days. (+) worsening sx upon inspiration, 3 lb weight gain over past 3 days, constant phlegm build-up in back of throat, cough. (-) abd pain, sick family at home. PMHx GI bleed, endoscopy with no ulcer found, recieved 3 units blood transfusion. A CXR reveals MODERATE VASCULAR CONGESTION. THERE IS INTERVAL IMPROVEMENT. An EKG reveals nl IV CT, nl QTc, nl axis, non-specific ST seg, downsloping II, AVF, V3-V6, AFib. (add all other imaging/EKG/UA/lab results). Pt is admitted for further evaluation of continued SOB, weight gain, elevated troponin, elevated BNP, decreased H/H despite recent transfusion. Allergies noted, pt medications reviewed this visit. - Diagnoses Differential Diagnosis/HQI/PQRI: Positive: Bronchitis, CHF, COPD Exacerbation, SC, Pneumonia Provider Diagnoses: CHF (congestive heart failure), Elevated troponin, Anemia, PAF (paroxysmal atrial fibrillation) - Physician Notifications Discussed Care of Patient With: Hanna Napier Time Discussed With Above Provider: 17:35 Instructed by Provider To: Admit As Inpatient - Dr. Napier accepted admission to [facility]. Discharge - Sign-Out/Discharge Documenting (check all that apply): Patient Departure - admit - Discharge Plan Condition: Stable Disposition: ADMITTED TO [facility] - Billing Disposition and Condition Condition: STABLE Disposition: Admitted to [facility] The documentation as recorded by the Neto morris Simon accurately reflects the service I personally performed and the decisions made by Misael odom Barbara J, MD.
[2017-12-03 00:45] LABS: Hematocrit 27 % (42-52); Hemoglobin 8.9 g/dl (14.0-18.0)
[2017-12-03 06:46] LABS: ABS Basophils 0.1 10^3/ul (0-0.2); ABS Eosinophils 0.2 10^3/ul (0-0.6); ABS Lymphocytes 0.6 10^3/ul (1.0-4.8); ABS Monocytes 1.1 10^3/ul (0-0.8); ABS Neutrophils 6.7 10^3/ul (1.5-7.7); ABS Nucleated RBC 0 10^3/ul; Eosinophil % 2.9 % (0-6); Hematocrit 27 % (42-52); Hemoglobin 9.4 g/dl (14.0-18.0); Lymphocyte % 6.4 % (25-47); Mean Corpuscular HGB Conc 34 g/dl (31-36); Mean Corpuscular Hemoglobin 30 pg (27-31); Mean Corpuscular Volume 86 fL (80-94); Mean Platelet Volume 7.3 um3 (7.4-10.4); Nucleated Red Blood Cells % 0.1; Platelet Count 191 10^3/ul (150-450); Red Blood Count 3.14 10^6/ul (4.00-5.40); Red Cell Distribution Width 14 % (10.5-15); White Blood Count 8.6 10^3/ul (3.5-10.8)
[2017-12-03 07:01] LABS: EGFR Non-African American 40.9 (>60)
[2017-12-03] MEDS ORDERED: Multivitamins/Minerals TAB PO SCH (09:00)
[2017-12-03] MEDS: Apixaban* 2.5 MG TAB PO SCH (09:00)
[2017-12-03] MEDS ORDERED: amLODIPine TAB* 5 MG PO SCH (09:00)
[2017-12-03] MEDS ORDERED: Insulin GLARGINE(*) 1 UNITS UNIT SUBCUT SCH (09:00)
[2017-12-03] MEDS ORDERED: Aspirin 81 mg CHEW TAB* 81 MG TAB.CHEW PO SCH (09:00)
[2017-12-03] MEDS ORDERED: Isosorbide Mononitrate ER TAB* 30 MG PO SCH (09:00)
[2017-12-03] MEDS: Insulin LISPRO* 1 UNITS UNIT SUBCUT SCH ×2 (09:59→11:48)
[2017-12-03 11:51] VITALS: BP 112/39
--- NOTE | 2017-12-04 05:06 | DS ---
CC: Dr. Harp; Dr. Mulugeta Hill* DISCHARGE SUMMARY: DATE OF ADMISSION: 12/02/17 DATE OF DISCHARGE: 12/03/17 DISCHARGE DIAGNOSIS: Acute diastolic congestive heart failure exacerbation. SECONDARY DIAGNOSES: 1. Type 2 diabetes. 2. Hypertension. 3. Hyperlipidemia. 4. Atrial fibrillation. 5. Peripheral arterial disease. 6. Chronic kidney disease, stage 3. 7. Moderate aortic stenosis and moderate mitral regurgitation. 8. Coronary artery disease. 9. Diastolic congestive heart failure. 10. Gastrointestinal bleed of unclear source (GI versus ENT source). 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 12. Status post right below-knee amputation. HOSPITAL COURSE: Mr. Méndez is an 82-year-old male with the past medical history as stated above, who presented to the emergency room on 12/02/17 with complaints of chest discomfort, shortness of breath and weight gain. He had been admitted to [facility] from 11/05/17 to 11/11/17 with type 2 GA and acute diastolic heart failure in the setting of GI bleed with supratherapeutic INR and possible infection. The patient was discharged home without diuretics. He was seen by Dr. Hill on 11/23/17 and at that time was back on his chlorthalidone. Despite using diuretic, the patient gained 3 pounds 2 days prior to admission and was feeling more short of breath. He was admitted under the impression of diastolic CHF exacerbation. For more details about his presentation, I refer you to his history and physical. The patient received Bumex IV with resolution of his symptoms. He feels that he is back at his baseline. I discussed the case with Dr. Hill and his recommendation was to stop his chlorthalidone and to start Bumex 1 mg daily at home and he will follow up as an outpatient. The patient is in agreement with this plan and feels well enough to be discharged home today. PHYSICAL EXAMINATION: Vital Signs: Temperature 97.8, heart rate 58, respiratory rate is 16, oxygen saturation is 99% on room air, blood pressure is 112/49. General: The patient is a pleasant, elderly male, sitting up in bed, in no acute distress. CVS: Normal S1 and S2. Regular rate and rhythm with systodiastolic murmur and mitral rumble. Chest: Breath sounds present bilaterally with no added sounds. Abdomen is soft. Bowel sounds present. Extremities: Status post right BKA. Trace edema on the left lower extremity. Neuro: He is alert and oriented x3, able to move all 4 extremities. DIET: Heart-healthy, consistent carb diet. ACTIVITIES: As tolerated. DISPOSITION: To home. STATUS WHILE IN THE HOSPITAL: Observation. Please keep in mind, this is a summarized version of this patient's hospital stay. If you need more information, please feel free to call me at [phone] or please obtain the full medical records. TIME SPENT: Approximately 45 minutes were spent to complete this discharge. [id number]/CPS #: [id number] KUSUM
== END 2017-12-03 14:35 | disposition home or self-care (01) ==
LOC: ED 15:04 → MEDTELE 17:24 → INTOOBSV 17:24
PROVIDERS: ADMIT Internal Medicine; ATTEND Internal Medicine
DX: 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 disease with heart failure and stage 1 through stage 4 chronic kidney disease, or unspecified chronic kidney disease (principal); E11.22 Type 2 diabetes mellitus with diabetic chronic kidney disease; N18.3 Chronic kidney disease, stage 3 (moderate); I50.33 Acute on chronic diastolic (congestive) heart failure; R07.9 Chest pain, unspecified; D72.829 Elevated white blood cell count, unspecified; I48.91 Unspecified atrial fibrillation; E78.5 Hyperlipidemia, unspecified; I73.9 Peripheral vascular disease, unspecified; I35.0 Nonrheumatic aortic (valve) stenosis; I34.0 Nonrheumatic mitral (valve) insufficiency; I25.10 Atherosclerotic heart disease of native coronary artery without angina pectoris; K92.2 Gastrointestinal hemorrhage, unspecified; G61.0 Guillain-Barre syndrome; Z89.511 Acquired absence of right leg below knee; R74.8 Abnormal levels of other serum enzymes; R94.31 Abnormal electrocardiogram [ECG] [EKG]; I25.2 Old myocardial infarction; Z79.82 Long term (current) use of aspirin; Z79.899 Other long term (current) drug therapy; Z79.01 Long term (current) use of anticoagulants; Z88.8 Allergy status to other drugs, medicaments and biological substances; R63.5 Abnormal weight gain
CPT/HCPCS: 36415; 71045; 80048; 80053; 81003; 82550; 83605; 83880; 84484; 85014; 85018; 85025; 85379; 85610; 85730; 86140; 86850; 86900; 86901; 87040; 87086; 93005; 96374; 99283; A9270-GY; G0378

== ENCOUNTER 2017-12-07 09:43 | Inpatient (IN) | payer MEDICARE, BC ==
[2017-12-07 10:51] LABS: ABS Basophils 0 10^3/ul (0-0.2); ABS Eosinophils 0 10^3/ul (0-0.6); ABS Lymphocytes 0.2 10^3/ul (1.0-4.8); ABS Monocytes 1.3 10^3/ul (0-0.8); ABS Neutrophils 12.2 10^3/ul (1.5-7.7); ABS Nucleated RBC 0 10^3/ul; Eosinophil % 0.1 % (0-6); Hematocrit 29 % (42-52); Hemoglobin 9.6 g/dl (14.0-18.0); Lymphocyte % 1.4 % (25-47); Mean Corpuscular HGB Conc 33 g/dl (31-36); Mean Corpuscular Hemoglobin 29 pg (27-31); Mean Corpuscular Volume 86 fL (80-94); Mean Platelet Volume 7.5 um3 (7.4-10.4); Nucleated Red Blood Cells % 0; Platelet Count 287 10^3/ul (150-450); Red Blood Count 3.36 10^6/ul (4.00-5.40); Red Cell Distribution Width 15 % (10.5-15); White Blood Count 13.7 10^3/ul (3.5-10.8)
[2017-12-07 11:18] LABS: EGFR Non-African American 28.8 (>60)
--- NOTE | 2017-12-07 11:20 | RAD ---
Indication: Dyspnea. 2 views of the chest demonstrates cardiomegaly. Interstitial edema consistent with vascular congestion is noted. This has progressed since previous exam of December 02, 2017. IMPRESSION: Progressive interstitial edema.
[2017-12-07] MEDS ORDERED: Nitroglycerin 2% OINT* 1 GM PAK TOPICAL ONE (11:36)
[2017-12-07] MEDS ORDERED: Bumetanide IV* 0.25 MG/ML 4 ML VIAL SLOW PUSH ONE ×2 (11:36→16:00)
[2017-12-07] MEDS ORDERED: Potassium Chlor TAB* 20 MEQ TAB.ER PO ONE (11:36)
[2017-12-07] MEDS ORDERED: Acetaminophen TAB* 325 MG PO PRN (11:59)
[2017-12-07] MEDS ORDERED: PROCHLORPERAZINE INJ 5 MG/ML 2 ML VIAL IV PRN (11:59)
[2017-12-07] MEDS ORDERED: Dextrose 50% Syringe 50 ML* 25 GM/50 ML SYRINGE IV PUSH PRN (14:02)
[2017-12-07] MEDS: Isosorbide Mononitrate ER TAB* 30 MG PO SCH (15:20)
[2017-12-07] MEDS: Amiodarone TAB* 200 MG PO SCH (15:20)
--- NOTE | 2017-12-07 16:07 | ED ---
Gio Villatoro Jacob, kielibed Abelino Young MD on 12/07/17 at 1037 . Shortness of Breath - HPI Summary HPI Summary: Pt is a 82 y/o M w/ c/o SOB, fluid retention, cough, and upper abdominal pain. He was seen [place] [facility] [place] (12/02/17) and stayed overnight for the same symptoms. He was released the next day (12/03/17) and stated he felt better upon release. Since then, symptoms returned and he states he feels, weak, tired. On triage, pain is rated 2/10, but denies pain in the room. Pt took prescribed medication, Bumex, but states it did not provide relief. He describes a phlegm that, goes down his throat and cant cough up. Pt is experiencing aches as well as difficulty ambulating due to tiredness in calves. He states appetite has been normal, notes he has not been eating salty foods, and denies fever, emesis, diarrhea, nausea, and HAs. Pt is not on O2 at home where he lives with his . He checks weight daily and states he has gain 1-1.5 lbs since initial [facility] [place]. - History of Current Complaint Chief Complaint: EDShortnessOfBreath Time Seen by Provider: 12/07/17 10:19 Hx Obtained From: Patient Onset/Duration: Lasting Days - onset 11/30/17, pt felt fine upon discharge from 12/03, symptoms returned "since then", Still Present Timing: Constant Current Severity: None - 2/10 on triage, denies pain in room Aggrevating Factors: Nothing Alleviating Factors: Nothing Associated Signs & Symptoms: Cough (Nonproductive) - states he feels phlegm that is down his throat but cannot cough up, Chest Pain w/Cough - denies chest pain in the room, Calf Pain/Swelling - tiredness in legs when ambulating Related History: Similar Episode - came into [facility] [place] 12/02/17 for same Sx - Allergy/Home Medications Allergies/Adverse Reactions: Allergies Allergy/AdvReac Type Severity Reaction Status Date / Time furosemide Allergy Mild Rash Verified 12/07/17 10:20 tramadol Allergy Mild Dizziness Verified 12/07/17 10:20 KATHRYN Inhibitors Allergy Unknown Verified 12/07/17 10:20 Reaction Details spironolactone Allergy Rash Verified 12/07/17 10:20 valsartan Allergy Unknown Verified 12/07/17 10:20 Reaction Details angiotensin receptor willie Allergy Unknown Uncoded 12/07/17 10:20 Reaction Details PMH/Surg Hx/FS Hx/Imm Hx Endocrine/Hematology History: Reports: Hx Diabetes Denies: Hx Thyroid Disease Cardiovascular History: Reports: Hx Angina, Hx Atrial Fibrillation, Hx Congestive Heart Failure, Hx Hypercholesterolemia, Hx Hypertension - ON MEDS, Hx Peripheral Vascular Disease Denies: Hx Coronary Artery Disease, Hx Myocardial Infarction, Hx Valvular Heart Disease, Other Cardiovascular Problems/Disorders - DENIES Respiratory History: Reports: Hx Pneumonia Denies: Other Respiratory Problems/Disorders - DENIES GI History: Reports: Hx Gastrointestinal Bleed History: Reports: Hx Chronic Renal Failure, Hx Renal Disease, Other Problems/Disorders - chronic kidney dx Musculoskeletal History: Reports: Other Musculoskeletal History Denies: Hx Arthritis, Hx Osteoporosis Sensory History: Reports: Hx Cataracts, Hx Contacts or Glasses Denies: Hx Hearing Aid Opthamlomology History: Reports: Hx Cataracts, Hx Contacts or Glasses Neurological History: Reports: Other Neuro Impairments/Disorders - guillan barre Denies: Hx Headaches, Hx Seizures, Hx Transient Ischemic Attacks (TIA) - Surgical History Surgery Procedure, Year, and Place: RIGHT LEG AMPUTATION, BILAT ROTATOR CUFFS Infectious Disease History: No Infectious Disease History: Denies: Traveled Outside the [place] in Last 30 Days - Family History Known Family History: Positive: Unknown - Adopted Family History: Unknown - pt is adopted - Social History Alcohol Use: None Hx Substance Use: No Substance Use Type: Reports: None Hx Tobacco Use: No Smoking Status (MU): Never Smoked Tobacco Have You Smoked in the Last Year: No Review of Systems Positive: Other - aches, "weak, tired". Negative: Fever Positive: Chest Pain - denies chest pain is currently present while in the room , Other - fluid retention Positive: Shortness Of Breath, Cough - pt describes phelgm in throat that he cannot cough up Positive: Abdominal Pain - upper. Negative: Vomiting, Diarrhea, Nausea Positive: Other - Calf pain while ambulating Negative: Headache All Other Systems Reviewed And Are Negative: Yes Physical Exam - Summary Physical Exam Summary: Appearance: Mild distress, difficulty speaking in complete sentences. Well- nourished, lying in bed comfortably. Skin: Warm, dry, no obvious rash Eyes: sclera anicteric, no conjunctival pallor ENT: mucous membranes moist, pharynx appears normal Neck: Slight JVD in neck. Respiratory: Bilateral crackles chcf up in lungs. Cardiovascular: Normal S1, S2. No murmurs. Trace 1+ tibial pulse in left leg, right left is surgically absent. Abdomen: Soft, nontender, normal active bowel sounds present Musculoskeletal: Normal, Strength/ROM Intact Neurological: A&Ox3, awake and alert, mentation is normal, speech is fluent and appropriate Psychiatric: affect is normal, does not appear anxious or depressed Triage Information Reviewed: Yes Vital Signs On Initial Exam: Initial Vitals Temp Pulse Resp BP Pulse Ox 99.2 F 80 20 114/44 88 12/07/17 09:59 12/07/17 09:59 12/07/17 09:59 12/07/17 09:59 12/07/17 09:59 Vital Signs Reviewed: Yes Diagnostics - Vital Signs Vital Signs Temp Pulse Resp BP Pulse Ox 12/07/17 10:13 79 75 12/07/17 09:59 99.2 F 80 20 114/44 88 - Laboratory Lab Results: Lab Results 12/07/17 12/07/17 12/07/17 Range/Units 10:40 10:40 10:40 WBC 13.7 H (3.5-10.8) 10^3/ul RBC 3.36 L (4.00-5.40) 10^6/ul Hgb 9.6 L (14.0-18.0) g/dl Hct 29 L (42-52) % MCV 86 (80-94) fL MCH 29 (27-31) pg MCHC 33 (31-36) g/dl RDW 15 (10.5-15) % Plt Count 287 (150-450) 10^3/ul MPV 7.5 (7.4-10.4) um3 Neut % (Auto) 89.0 H (38-83) % Lymph % (Auto) 1.4 L (25-47) % Payette % (Auto) 9.4 H (0-7) % Eos % (Auto) 0.1 (0-6) % Baso % (Auto) 0.1 (0-2) % Absolute Neuts (auto) 12.2 H (1.5-7.7) 10^3/ul Absolute Lymphs (auto) 0.2 L (1.0-4.8) 10^3/ul Absolute Monos (auto) 1.3 H (0-0.8) 10^3/ul Absolute Eos (auto) 0 (0-0.6) 10^3/ul Absolute Basos (auto) 0 (0-0.2) 10^3/ul Absolute Nucleated RBC 0 10^3/ul Nucleated RBC % 0 Sodium 127 L (135-145) mmol/L Potassium 3.4 L (3.5-5.0) mmol/L Chloride 88 L (101-111) mmol/L Carbon Dioxide 29 (22-32) mmol/L Anion Gap 10 (2-11) mmol/L BUN 96 H (6-24) mg/dL Creatinine 2.21 H (0.67-1.17) mg/dL Est GFR ( Amer) 34.8 (>60) Est GFR (Non-Af Amer) 28.8 (>60) BUN/Creatinine Ratio 43.4 H (8-20) Glucose 368 H (70-100) mg/dL Calcium 9.2 (8.6-10.3) mg/dL Total Bilirubin 1.20 H (0.2-1.0) mg/dL AST 27 (13-39) U/L ALT 30 (7-52) U/L Alkaline Phosphatase 61 (34-104) U/L Troponin I 0.15 H* (<0.04) ng/mL B-Natriuretic Peptide 1147 H ( - 100) pg/mL Total Protein 6.9 (6.4-8.9) g/dL Albumin 3.5 (3.2-5.2) g/dL Globulin 3.4 (2-4) g/dL Albumin/Globulin Ratio 1.0 (1-3) Result Diagrams: 12/07/17 10:40 12/07/17 10:40 Lab Statement: Any lab studies that have been ordered have been reviewed, and results considered in the medical decision making process. - Radiology CXR Xray Interpretation: Positive (See Comments) Radiology Interpretation Completed By: Radiologist - Progressive interstitial edema. This report was reviewed by ED physician. - EKG 1052 Cardiac Rate: NL EKG Rhythm: Sinus Rhythm EKG Comparison: Other - NSR at 77 BPM, P waves, QRS complex, and T waves are within normal limits, T waves and intervals are normal, no ischemic changes. This is a normal EKG Course/Dx - Diagnoses Provider Diagnoses: Congestive heart failure, Hypoxia Discharge - Sign-Out/Discharge Documenting (check all that apply): Discharge/Admit/Transfer - admit - Discharge Plan Condition: Fair Disposition: ADMITTED TO [facility] - Billing Disposition and Condition Condition: FAIR Disposition: Admitted to [facility] The documentation as recorded by the Gio morris Jacob accurately reflects the service I personally performed and the decisions made by , Abelino Kay MD.
[2017-12-07] MEDS: Insulin LISPRO* 1 UNITS UNIT SUBCUT SCH ×2 (17:43→21:12)
[2017-12-07] MEDS: Atorvastatin* 80 MG TAB PO SCH (17:44)
--- NOTE | 2017-12-07 19:15 | HP ---
CC: Dr. Harp; Dr. Mulugeta Hill * HISTORY AND PHYSICAL: DATE OF ADMISSION: 12/07/17 TIME OF EVALUATION: 11:30 a.m. PRIMARY CARE PROVIDER: Dr. Harp. LITERACY COORDINATOR: Dr. Mulugeta Hill. CHIEF COMPLAINT: Shortness of breath. HISTORY OF PRESENT ILLNESS: Mr. Méndez is an 82-year-old male with a past medical history of acute diastolic CHF; type 2 diabetes; hypertension; hyperlipidemia; AFib; peripheral arterial disease; CKD, stage 3; aortic stenosis ; CAD; GI bleed; status post right BKA, who presented to the emergency room with complaints of shortness of breath. He was [place] [facility] [place] to 12/03/17 with similar complaints. He was diagnosed with acute CHF exacerbation and impression was at that time he was only on chlorthalidone for diuretic and that appeared to be not sufficient. He was diuresed overnight and the case was discussed with his wire strander, Dr. Hill, who recommended discharging him on bumetanide 1 mg a day. The patient states that initially he was feeling well, but yesterday he started to have shortness of breath again and he had gained [address] Hill's office and was advised to take 2 tablets of bumetanide, what he did, but the symptoms continued and the shortness of breath was actually worse today , what prompted his emergency room visit. In the emergency room, he was found to have an oxygen saturation of 72%, was placed initially on 4 liters, this was then titrated to 6 liters and by the time of my evaluation, he was on 10 liters of oxygen with saturation of 92%. He denies fever, chills, cough. He states that he has been compliant with his medications and with his diet. PAST MEDICAL HISTORY: 1. Diastolic CHF. 2. Type 2 diabetes. 3. Hypertension. 4. Hyperlipidemia. 5. AFib. 6. Peripheral arterial disease. 7. CKD, stage 3. 8. Moderate aortic stenosis. 9. Moderate mitral regurgitation. 10. Coronary artery disease. 11. GI bleed of unclear source (GI versus ENT source). 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 13. Status post right below-knee amputation. PAST SURGICAL HISTORY: 1. Status post right BKA (secondary to trauma). 2. Bilateral rotator cuff repair. 3. Status post left knee surgery. MEDICATION LIST: 1. Amiodarone 100 mg p.o. Mondays, Wednesdays, Fridays. 2. Amlodipine 10 mg p.o. daily. 3. Apixaban 2.5 mg p.o. b.i.d. 4. Aspirin 81 mg p.o. daily. 5. Atorvastatin 80 mg p.o. at bedtime. 6. Bumetanide 1 mg p.o. daily. 7. Calcium plus vitamin D 1 tablet p.o. q.a.m. 8. Lantus 25 units subcutaneously q.a.m. 9. Imdur 30 mg p.o. daily. 10. Multivitamin 1 tablet daily. 11. Omeprazole 10 mg p.o. 6 a.m. 12. Januvia 50 mg daily. ALLERGIES: The patient had reactions to FUROSEMIDE, TRAMADOL, KATHRYN INHIBITORS, ALDACTONE, VALSARTAN and ARBS. FAMILY HISTORY: The patient is adopted. SOCIAL HISTORY: No history of tobacco, alcohol or drug use. Surrogate decision maker is his , Mouna Méndez, phone number is [phone]. REVIEW OF SYSTEMS: A 14-point review of systems was performed and all the pertinent negative and positive findings are in the HPI. PHYSICAL EXAMINATION GENERAL: The patient is an elderly gentleman, sitting up in the ED stretcher, in no acute distress. VITAL SIGNS: Temperature 99.2, heart rate is 71, respiratory rate is 18, oxygen saturation is 92% on 10 liters nasal cannula and blood pressure is 115/ 54. HEENT: Pupils are equal. Moist mucous membranes. There is positive JVD. CHEST: Breath sounds bilaterally with bilateral crackles. CVS: Normal S1, S2. Regular rate and rhythm. ABDOMEN: Soft. Bowel sounds are present. EXTREMITIES: There is right BKA. There is mild pitting edema to the left lower extremity. NEURO: He is alert and oriented x3. Able to move all 4 extremities. LABORATORY AND IMAGING DATA: The patient had a CBC that showed WBC 13.7, hemoglobin 9.6, hematocrit 29, platelets of 287, 89% neutrophils. Chemistry showed a sodium of 127, potassium of 3.4, chloride of 88, BUN of 96, creatinine of 2.2, glucose of 368. LFT showed a total bilirubin of 1.2. First troponin was 0.15. BNP was 1147. Chest x-ray showed progressive interstitial edema compared to his prior x-ray from 12/02/17. EKG done on 12/07/17 at 10:52 a.m. showed sinus rhythm at 77 beats per minute with first degree heart block and LVH. No significant change when compared to his prior EKG from 12/03/17. ASSESSMENT AND PLAN: Mr. Méndez is an 82-year-old with a past medical history of type 2 diabetes; hypertension; hyperlipidemia; atrial fibrillation; peripheral arterial disease; chronic kidney disease, stage 3; aortic stenosis; mitral regurgitation; coronary artery disease; GI bleed; status post right below-knee amputation; recent admission for congestive heart failure exacerbation, who presented to the emergency room with complaints of shortness of breath, found to be in congestive heart failure exacerbation once more. 1. Acute hypoxemic respiratory failure. The patient will be admitted to the intensive care unit because he is already requiring 10 liters of oxygen and he may require Vapotherm. Source is acute diastolic congestive heart failure exacerbation. 2. Acute diastolic congestive heart failure exacerbation. Etiology is unclear at this time. The patient was admitted on 12/02/17 and responded well to bumetanide. He states that he was feeling well at home until yesterday when he started to have shortness of breath again and gained 2 pounds. He states that he is compliant with his medications and with diet and describes no other precipitating factors. He is going to be admitted to the intensive care unit while we are going to continue diuresis with bumetanide. We are going to monitor I's and O's and daily weights. Depending on the patient's response, we will contact Dr. Hill to see what other further adjustments can be made to this patient's medications. The patient appears to be fluid overloaded at this time as shown by the crackles on his physical examination, left lower extremity edema, hyponatremia. 3. Acute on chronic renal failure. The patient's creatinine is up to 2.2, but despite the worsening of his renal function, the patient is certainly fluid overloaded at this time and needs further diuresis. We will monitor his renal function. 4. Troponin elevation. Likely secondary to his renal disease. We are going to trend his troponins, but this number is actually lower than on his prior admission. 5. Type 2 diabetes. We will check fingersticks a.c. and h.s. and cover with a lispro sliding scale. 6. Atrial fibrillation. The patient is in sinus rhythm at this time. We are going to continue his amiodarone and apixaban. 7. Hypertension. We will continue his amlodipine. 8. DVT prophylaxis: The patient has a score of 3 on the DVT Prophylaxis Risk Assessment Guide and he will be continued on his apixaban. 9. Code status is full. TIME SPENT: Approximately 60 minutes were spent with the patient interview, medical records review, physical examination to complete this admission, more than half of this time was spent [id number] with the patient and coordination of care. [id number]/[facility] #: [id number] KUSUM
[2017-12-07] MEDS: Apixaban* 2.5 MG TAB PO SCH (21:13)
--- NOTE | 2017-12-07 23:45 | CONS ---
CC: Dr. Hill; Dr. Garza; Dr. Harp; Hospitalist Service * CARDIOLOGY CONSULT: DATE OF CONSULT: 12/07/17 TELEVISION NEWSCAST DIRECTOR: Dr. Hill. HISTORY OF PRESENT ILLNESS: I was asked by hospitalist service, Dr. Amaral, to see this 82-year-old male patient with recurrent hospitalizations of non- systolic congestive heart failure. Apparently, the patient was in the hospital and was just discharged few days ago actually. He does have a complicated medical history including history of coronary artery disease, old inferior wall TN, history of nonsevere aortic stenosis, history of severe peripheral arterial disease and lower extremity wounds in the past, chronic kidney disease, normal left ventricular systolic function, history of atrial fibrillation, history of cardioversion, history of hypertension, dyslipidemia, and history of hyperkalemia. He is not on KATHRYN or ARBs. He has been having more progressive symptoms of shortness of breath and presented to the hospital. He feels fatigued, tired. He gives no chest pain, no fever. He said probably few days ago he had cold symptoms and coughing, but no fever, no chills, no nausea, no vomiting, no hematochezia. No swelling in the lower extremities is appreciated. He gives no palpitations and no syncope. In the emergency room, he was found to be in congestive heart failure with his BNP was 1147. He had no chest pain. The troponin initially 0.15 and then 0.30. He did have actually in the past elevated troponins. He does also have low sodium. Cardiology consult was further requested to help in management of congestive heart failure. The patient is known to be allergic to LASIX and he is on Bumex as an outpatient. PAST MEDICAL HISTORY: Extensive including history of chronic kidney disease, type 2 diabetes mellitus, essential hypertension, recurrent congestive heart failure non- systolic, old inferior wall TN, history of paroxysmal atrial fibrillation, history of peripheral arterial disease, chronic kidney disease, dyslipidemia, history of traumatic right leg amputation. PAST SURGICAL HISTORY: Includes below-knee amputation; right knee had a trauma injury, infected hardware; history of cardioversion in September 2015. MEDICATIONS: As an inpatient: 1. Tylenol 650 mg p.o. q.6 hours p.r.n. 2. Amiodarone 100 mg daily. 3. Amlodipine 10 mg daily. 4. Eliquis 2.5 mg twice a day. 5. Aspirin 81 mg daily. 6. Lipitor 80 mg daily. 7. Bumex 1 mg once a day now, but this would be increased. 8. Isosorbide 30 mg daily. 9. Multivitamins 1 daily. 10. Omeprazole 20 mg daily. ALLERGIES: He is allergic as indicated to FUROSEMIDE, TRAMADOL, KATHRYN INHIBITORS , SPIRONOLACTONE, as well as ARBS was reported. FAMILY HISTORY: No family history of premature coronary artery disease. SOCIAL HISTORY: He is , lives with . No history of smoking. No alcohol and no history of illicit drug use. REVIEW OF SYSTEMS: Review of all other systems essentially is negative. PHYSICAL EXAM: He is awake, alert, and oriented. He is mildly tachypneic. He had no symptoms of chest pain. His vitals: Blood pressure 107/53; pulse 76, some sinus beats seen; respiratory rate 17; temperature 98.6. Head and Neck Exam: Ears, nose, and throat essentially benign. Neck: Supple. JVP is elevated at 45 degrees. Chest: Diminished air entry bilaterally with rales. Heart: Normal S1, S2. There is a grade 4/6 systolic murmur in the left sternal border. Abdomen: Benign. Positive bowel sounds. Extremities: Right below-knee amputation. Left, no significant swelling. Skin exam is normal. Psych: Normal affect and mood. CUSTOMER ENERGY SPECIALIST: No focal deficits appreciated. DIAGNOSTIC STUDIES/LAB DATA: His labs showed the following: Sodium 127, potassium 3.4, chloride 88, BUN 96, creatinine 2.21. Troponin 0.15 and then 0.30. BNP 1147. His white blood cell 13.7, hemoglobin 9.6, hematocrit 29, platelets 287. His chest x-ray was reported to have interstitial edema and his EKG from today showed him to be in what appears to be actually sinus rhythm. There is definite sinus P-wave, possible LVH, secondary ST-T changes. IMPRESSION: The patient is an 82-year-old male patient with: 1. Recurrent hospitalization for diastolic non-systolic congestive heart failure, multifactorial in nature. 2. Coronary artery disease, old myocardial infarction. 3. Severe peripheral arterial disease. 4. Traumatic right below-knee amputation. 5. Paroxysmal atrial fibrillation. 6. Chronic kidney disease. 7. Diabetes mellitus type 2. 8. Systemic arterial hypertension. 9. Aortic stenosis, nonsevere. 10. Allergic to LASIX as well as to ARBS and KATHRYN INHIBITORS. PLAN: The patient is currently in the intensive care unit. Treatment will be very challenging given his comorbidities, chronic kidney disease, and limitation of using medications because of his comorbidities, especially kidney sebastian and potassium sebastian. At the present time I think, as you are already doing , I's and O's, daily weight, limit IV fluids to less than 1 L per 24-hour and limit sodium less than 2 g per 24-hour. Bumex can be increased gradually, close eye on his urine output is important. I would recommend adding a very low dose of Aldactone, especially his hyperkalemia was when Aldactone was used alone, especially now his potassium is low as well, and keep a close eye on his BUN and creatinine and potassium. I do not think there is a reason to repeat his echo. It was just done actually in October last month and it was reported to have his EF to be 50% to 55% and old inferior wall TN, left atrium moderately dilated, moderate aortic stenosis, moderate mitral insufficiency. I discussed this with the patient. We will follow him closely. Any further recommendations will be pending his clinical outcome. Nitro might be helpful, although he gives no chest pain, but it will be helpful. If his blood pressure tolerates, it will be helpful for his congestive heart failure as well. Thank you very much for asking us to participate in the care of this patient. TIME SPENT: More than half of 60 to 65 plus minutes was in education and counseling mode [id number]. [id number]/[id number] #: [id number] KUSUM
[2017-12-08] MEDS: Omeprazole CAP* 20 MG PO SCH (06:25)
[2017-12-08 06:36] LABS: ABS Basophils 0.1 10^3/ul (0-0.2); ABS Eosinophils 0.1 10^3/ul (0-0.6); ABS Lymphocytes 0.5 10^3/ul (1.0-4.8); ABS Monocytes 1.4 10^3/ul (0-0.8); ABS Neutrophils 10.5 10^3/ul (1.5-7.7); ABS Nucleated RBC 0 10^3/ul; Hematocrit 25 % (42-52); Hemoglobin 8.3 g/dl (14.0-18.0); Lymphocyte % 3.9 % (25-47); Mean Corpuscular HGB Conc 34 g/dl (31-36); Mean Corpuscular Hemoglobin 29 pg (27-31); Mean Corpuscular Volume 84 fL (80-94); Mean Platelet Volume 7.4 um3 (7.4-10.4); Nucleated Red Blood Cells % 0.1; Platelet Count 269 10^3/ul (150-450); Red Blood Count 2.92 10^6/ul (4.00-5.40); Red Cell Distribution Width 14 % (10.5-15); White Blood Count 12.6 10^3/ul (3.5-10.8)
[2017-12-08 06:55] LABS: EGFR Non-African American 33.7 (>60)
[2017-12-08] MEDS: Insulin LISPRO* 1 UNITS UNIT SUBCUT SCH ×4 (07:57→20:51)
[2017-12-08] MEDS: Apixaban* 2.5 MG TAB PO SCH ×2 (08:04→20:51)
[2017-12-08] MEDS: Insulin GLARGINE(*) 1 UNITS UNIT SUBCUT SCH (08:04)
[2017-12-08] MEDS: Isosorbide Mononitrate ER TAB* 30 MG PO SCH (08:04)
[2017-12-08] MEDS: Aspirin 81 mg CHEW TAB* 81 MG TAB.CHEW PO SCH (08:05)
[2017-12-08] MEDS: Multivitamins/Minerals TAB PO SCH (08:05)
[2017-12-08] MEDS ORDERED: amLODIPine TAB* 5 MG PO SCH (09:00)
[2017-12-08] MEDS ORDERED: Bumetanide IV* 0.25 MG/ML 4 ML VIAL SLOW PUSH ONE (09:07)
[2017-12-08] MEDS ORDERED: Spironolactone TAB* 25 MG PO SCH (09:15)
[2017-12-08] MEDS: KCL 20 MEQ/100 ML IVPREMIX* 20 MEQ/100 ML BAG IV SCH ×3 (09:27→14:25)
[2017-12-08] MEDS: Potassium Chlor TAB* 20 MEQ TAB.ER PO SCH (14:55)
--- NOTE | 2017-12-08 16:00 | PN ---
Subjective Date of Service: 12/08/17 Interval History: . Doing better this morning Urine output robust Discussed low potassium level, that we are repleting today.\ denies chest pain, less dyspnea than at admission. Family History: Unchanged from Admission Social History: Unchanged from Admission Past Medical History: Unchanged from Admission Objective Active Medications: . Acetaminophen (Tylenol Tab*) 650 mg PO Q6H PRN PRN Reason: pain/fever Amiodarone HCl (Cordarone Tab*) 100 mg PO MOWEFR [facility] Last Admin: 12/07/17 15:20 Dose: Not Given Amlodipine Besylate (Norvasc Tab*) 10 mg PO DAILY [facility] Last Admin: 12/08/17 08:05 Dose: 10 mg Apixaban (Eliquis) 2.5 mg PO BID [facility] Last Admin: 12/08/17 08:04 Dose: 2.5 mg Aspirin (Aspirin 81 Mg Chew Tab*) 81 mg PO DAILY [facility] Last Admin: 12/08/17 08:05 Dose: 81 mg Atorvastatin Calcium (Lipitor*) 80 mg PO QPM [facility] Last Admin: 12/07/17 17:44 Dose: 80 mg Dextrose (D50w Syringe 50 Ml*) 12.5 gm IV PUSH .FOR FS < 60 - SS PRN PRN Reason: FS < 60 Potassium Chloride (Potassium Chloride 20 Meq/100 Ml Ivpremix*) 20 meq in 100 mls @ 50 mls/hr IV Q2H [facility] Stop: 12/08/17 15:59 Last Admin: 12/08/17 14:25 Dose: 50 mls/hr Insulin Glargine (Lantus(*)) 20 units SUBCUT QAM [facility] Last Admin: 12/08/17 08:04 Dose: 20 units Insulin Human Lispro (Humalog*) 0 units SUBCUT ACHS [facility]; Protocol Last Admin: 12/08/17 13:04 Dose: 3 units Isosorbide Mononitrate (Imdur Er Tab*) 30 mg PO DAILY [facility] Last Admin: 12/08/17 08:04 Dose: 30 mg Multivitamins/Minerals (Theragran/Minerals Tab*) 1 tab PO DAILY [facility] Last Admin: 12/08/17 08:05 Dose: 1 tab Omeprazole (Prilosec Cap*) 20 mg PO 0600 [facility] Last Admin: 12/08/17 06:25 Dose: 20 mg Potassium Chloride (Klor Con Er Tab*) 40 meq PO DAILY [facility] Last Admin: 12/08/17 14:55 Dose: 40 meq Prochlorperazine Edisylate (Compazine Inj*) 5 mg IV Q6H PRN PRN Reason: NAUSEA/VOMITING Spironolactone (Aldactone Tab*) 25 mg PO DAILY [facility] Last Admin: 12/08/17 09:26 Dose: 25 mg . Vital Signs - 8 hr 12/08/17 12/08/17 12/08/17 08:00 08:30 09:00 Temperature 99.3 F Pulse Rate 71 67 60 Respiratory 19 19 18 Rate Blood Pressure 102/54 105/55 99/40 (mmHg) O2 Sat by Pulse 100 100 100 Oximetry 12/08/17 12/08/17 12/08/17 09:30 10:00 10:31 Temperature Pulse Rate 68 67 73 Respiratory 18 22 17 Rate Blood Pressure 107/44 96/45 110/55 (mmHg) O2 Sat by Pulse 98 90 96 Oximetry Oxygen Devices in Use Now: High Flow Nasal Cannula Appearance: NAD Eyes: No Scleral Icterus Ears/Nose/Mouth/Throat: Clear Oropharnyx Neck: NL Appearance and Movements; NL JVP Respiratory: Symmetrical Chest Expansion and Respiratory Effort Cardiovascular: NL Sounds; No Murmurs; No JVD Abdominal: NL Sounds; No Tenderness; No Distention Lymphatic: No Cervical Adenopathy Extremities: No Edema Skin: No Rash or Ulcers Neurological: Alert and Oriented x 3 Lines/Tubes/Other Access: Clean, Dry and Intact Peripheral IV Nutrition: Taking PO's Result Diagrams: 12/08/17 06:20 12/08/17 06:20 Additional Lab and Data: . Troponin values have peaked, and represent Type II NJ (NSTEMI) 12/07/17 12/08/17 12/08/17 10:40 06:20 12:30 Troponin I 0.15 H* 0.88 H* 0.69 H* BNP values this admission represent an increase over baseline - consistent with acute on chronic diastolic heart failure 11/05/17 12/07/17 03:51 10:40 B-Natriuretic Peptide 402 H 1147 H ECHO in October 2017: EF 55%, + diastolic dysfunction, worsen MR, inferior hypokinesis (c/w previous infarct) Assess/Plan/Problems-Billing Assessment: 82 yo man with acute decompensated diastolic heart failure -- admitted for diuresis Also found to be profoundly anemic with paradoxical decrease in hgb despite diuresis. Also, hypokalemic - Patient Problems (1) Diastolic heart failure Current Visit: Yes Status: Acute Priority: High Code(s): I50.30 - UNSPECIFIED DIASTOLIC (CONGESTIVE) HEART FAILURE Comment: - Acute on chronic... - ECHO in october 2017: noted diastolic dysfunction with preserved LVEF (though hypokinetic inferior wall). - continue diuresis, other cardiac meds - transfuse slowly given h/o decompensated CHF. (2) Anemia Current Visit: Yes Status: Acute Priority: High Code(s): D64.9 - ANEMIA, UNSPECIFIED Comment: - conncerning given the concurrent diuresis - 1 unit prbc very slow - add iron studies to pre-tranfusion labwork (3) NSTEMI (non-ST elevated myocardial infarction) Current Visit: No Status: Acute Code(s): I21.4 - NON-ST ELEVATION (NSTEMI) MYOCARDIAL INFARCTION Comment: - Type II NJ present on admission - Risk for decompensated acute diastolic CHF after blood transfusion; transfuse slowly - Continue ASA, lipitor and imdur. - No BBlocker secondary to bradycardia in the past. (4) Stage III chronic kidney disease Current Visit: No Status: Acute Code(s): N18.3 - CHRONIC KIDNEY DISEASE, STAGE 3 (MODERATE) Comment: - follow Cr closely. - volatile K levels, historically. (5) Type 2 diabetes mellitus Current Visit: No Status: Chronic Comment: A1C % 7-8
[2017-12-08] MEDS: Atorvastatin* 80 MG TAB PO SCH (17:49)
[2017-12-08 18:03] LABS: EGFR Non-African American 27.9 (>60)
[2017-12-09] MEDS: Omeprazole CAP* 20 MG PO SCH (05:30)
[2017-12-09 05:41] LABS: ABS Basophils 0 10^3/ul (0-0.2); ABS Eosinophils 0.2 10^3/ul (0-0.6); ABS Lymphocytes 0.3 10^3/ul (1.0-4.8); ABS Monocytes 1.5 10^3/ul (0-0.8); ABS Nucleated RBC 0 10^3/ul; Eosinophil % 1.2 % (0-6); Hematocrit 27 % (42-52); Hemoglobin 9.1 g/dl (14.0-18.0); Lymphocyte % 2.5 % (25-47); Mean Corpuscular HGB Conc 34 g/dl (31-36); Mean Corpuscular Hemoglobin 28 pg (27-31); Mean Corpuscular Volume 84 fL (80-94); Mean Platelet Volume 7.4 um3 (7.4-10.4); Nucleated Red Blood Cells % 0; Platelet Count 292 10^3/ul (150-450); Red Blood Count 3.22 10^6/ul (4.00-5.40); Red Cell Distribution Width 14 % (10.5-15)
[2017-12-09 05:50] LABS: EGFR Non-African American 29.7 (>60)
[2017-12-09] MEDS: Multivitamins/Minerals TAB PO SCH (08:05)
[2017-12-09] MEDS: Isosorbide Mononitrate ER TAB* 30 MG PO SCH (08:05)
[2017-12-09] MEDS: Apixaban* 2.5 MG TAB PO SCH ×2 (08:05→20:50)
[2017-12-09] MEDS: Potassium Chlor TAB* 20 MEQ TAB.ER PO SCH (08:06)
[2017-12-09] MEDS: amLODIPine TAB* 5 MG PO SCH (08:06)
[2017-12-09] MEDS: Aspirin 81 mg CHEW TAB* 81 MG TAB.CHEW PO SCH (08:06)
[2017-12-09] MEDS: Insulin GLARGINE(*) 1 UNITS UNIT SUBCUT SCH (08:06)
[2017-12-09] MEDS: Insulin LISPRO* 1 UNITS UNIT SUBCUT SCH ×4 (08:06→20:50)
[2017-12-09] MEDS ORDERED: Bumetanide IV* 0.25 MG/ML 4 ML VIAL SLOW PUSH ONE (08:58)
--- NOTE | 2017-12-09 09:24 | PN ---
Subjective Date of Service: 12/09/17 Interval History: Remains on 6l sob does not feel improved denies CP, N/V Family History: Unchanged from Admission Social History: Unchanged from Admission Past Medical History: Unchanged from Admission Objective Active Medications: Acetaminophen (Tylenol Tab*) 650 mg PO Q6H PRN PRN Reason: pain/fever Amiodarone HCl (Cordarone Tab*) 100 mg PO MOWEFR [facility] Last Admin: 12/07/17 15:20 Dose: Not Given Amlodipine Besylate (Norvasc Tab*) 5 mg PO DAILY [facility] Last Admin: 12/09/17 08:06 Dose: 5 mg Apixaban (Eliquis) 2.5 mg PO BID [facility] Last Admin: 12/09/17 08:05 Dose: 2.5 mg Aspirin (Aspirin 81 Mg Chew Tab*) 81 mg PO DAILY [facility] Last Admin: 12/09/17 08:06 Dose: 81 mg Atorvastatin Calcium (Lipitor*) 80 mg PO QPM [facility] Last Admin: 12/08/17 17:49 Dose: 80 mg Bumetanide (Bumex*) 1 mg SLOW PUSH ONCE ONE Stop: 12/09/17 08:59 Dextrose (D50w Syringe 50 Ml*) 12.5 gm IV PUSH .FOR FS < 60 - SS PRN PRN Reason: FS < 60 Insulin Glargine (Lantus(*)) 20 units SUBCUT QAM [facility] Last Admin: 12/09/17 08:06 Dose: 20 units Insulin Human Lispro (Humalog*) 0 units SUBCUT ACHS [facility]; Protocol Last Admin: 12/09/17 08:06 Dose: 1 units Isosorbide Mononitrate (Imdur Er Tab*) 30 mg PO DAILY [facility] Last Admin: 12/09/17 08:05 Dose: 30 mg Multivitamins/Minerals (Theragran/Minerals Tab*) 1 tab PO DAILY [facility] Last Admin: 12/09/17 08:05 Dose: 1 tab Omeprazole (Prilosec Cap*) 20 mg PO 0600 [facility] Last Admin: 12/09/17 05:30 Dose: 20 mg Potassium Chloride (Klor Con Er Tab*) 40 meq PO DAILY [facility] Last Admin: 12/09/17 08:06 Dose: 40 meq Prochlorperazine Edisylate (Compazine Inj*) 5 mg IV Q6H PRN PRN Reason: NAUSEA/VOMITING Vital Signs - 8 hr 12/09/17 12/09/17 12/09/17 01:30 02:00 02:30 Temperature Pulse Rate 75 75 73 Respiratory 19 19 20 Rate Blood Pressure 117/59 123/49 110/69 (mmHg) O2 Sat by Pulse 97 98 99 Oximetry 12/09/17 12/09/17 12/09/17 03:00 03:10 03:30 Temperature 99.8 F Pulse Rate 70 71 Respiratory 18 17 Rate Blood Pressure 107/55 128/55 (mmHg) O2 Sat by Pulse 99 97 Oximetry 12/09/17 12/09/17 12/09/17 04:00 04:01 04:30 Temperature Pulse Rate 84 91 71 Respiratory 20 14 18 Rate Blood Pressure 116/35 112/69 (mmHg) O2 Sat by Pulse 85 93 99 Oximetry 12/09/17 12/09/17 12/09/17 05:00 05:30 05:57 Temperature Pulse Rate 72 73 Respiratory 17 16 18 Rate Blood Pressure 113/55 120/56 (mmHg) O2 Sat by Pulse 98 93 Oximetry 12/09/17 12/09/17 12/09/17 06:00 06:30 07:00 Temperature Pulse Rate 71 71 71 Respiratory 18 18 19 Rate Blood Pressure 115/61 112/67 119/65 (mmHg) O2 Sat by Pulse 95 96 96 Oximetry 12/09/17 12/09/17 07:30 08:00 Temperature Pulse Rate 71 70 Respiratory 17 18 Rate Blood Pressure 125/67 120/72 (mmHg) O2 Sat by Pulse 95 97 Oximetry Oxygen Devices in Use Now: Nasal Cannula - 6L, High Flow Nasal Cannula Eyes: No Scleral Icterus, PERRLA Ears/Nose/Mouth/Throat: Clear Oropharnyx Neck: NL Appearance and Movements; NL JVP Respiratory: Symmetrical Chest Expansion and Respiratory Effort, Clear to Auscultation Cardiovascular: RRR, - - 3/6 ABIOLA early peaking Extremities: No Edema, - - right BKA Neurological: Alert and Oriented x 3 Result Diagrams: 12/09/17 05:23 12/09/17 05:23 Additional Lab and Data: . Troponin values have peaked, and represent Type II MN (NSTEMI) 12/07/17 12/08/17 12/08/17 10:40 06:20 12:30 Troponin I 0.15 H* 0.88 H* 0.69 H* BNP values this admission represent an increase over baseline - consistent with acute on chronic diastolic heart failure 11/05/17 12/07/17 03:51 10:40 B-Natriuretic Peptide 402 H 1147 H ECHO in October 2017: EF 55%, + diastolic dysfunction, worsen MR, inferior hypokinesis (c/w previous infarct) Assess/Plan/Problems-Billing Assessment: 82 yo man with acute decompensated diastolic heart failure, afib on AC, CKD, anemia with recent suspect bleed in October 2017, DM2 p/w hypoxic respiratory failure thought in setting of recurrent decompensated dCHF - Patient Problems (1) Anemia Comment: - 1 unit prbc 12/08 - now stable, no evidence of acute bleed - iron studies c/w iron def if ferritin assumed to be acutely elevated -start ferrous sulfate -EGD in October after acute anemia without source, (2) Diastolic heart failure Current Visit: Yes Status: Acute Priority: High Code(s): I50.30 - UNSPECIFIED DIASTOLIC (CONGESTIVE) HEART FAILURE SNOMED Code(s): 352702527 Comment: - Acute on chronic decompensated -strict I/O and fluid restrict 1500cc/day -bumex 1mg again today 12/09 - consider nitrate -diuresis is limited by CKD. Greatly elevated BUN noted. Can consider dopamine if unable to improve further with diuresis today although h/o afib noted - repeat 2 view CXR tomorrow (3) Afib Current Visit: No Status: Acute Code(s): I48.91 - UNSPECIFIED ATRIAL FIBRILLATION SNOMED Code(s): 64742352 Comment: continue home amiodarone. c/w apixaban (4) CKD (chronic kidney disease) stage 4, GFR 15-29 ml/min Comment: limiting diuresis (5) Elevated troponin Comment: Again elevated (05/2017, October 2017, and earlier this month) May represent type 2 NSTEMI although underlying dz cannot be ruled out A LHC may be appropriate although limited by h/o anemia from unidentified source Consider when stable Cardiology following c/w ASA (6) Hyperkalemia Comment: - resolved (7) DVT prophylaxis Comment: watson
[2017-12-09] MEDS: Amiodarone TAB* 200 MG PO SCH (12:45)
[2017-12-09] MEDS: Atorvastatin* 80 MG TAB PO SCH (17:00)
--- NOTE | 2017-12-09 18:14 | PN ---
Subjective Date of Service: 12/09/17 - CC: SOB Interval History: The patient states he is still coughing at night. Still needs his O2. Per Dr Hua, O2 requirements have improved from 6L NC to 2 L NC. The patient denies dark or bloody stool. No CP. Medications Active Medications: Acetaminophen (Tylenol Tab*) 650 mg PO Q6H PRN PRN Reason: pain/fever Amiodarone HCl (Cordarone Tab*) 100 mg PO MOWEFR [facility] Last Admin: 12/09/17 12:45 Dose: 100 mg Amlodipine Besylate (Norvasc Tab*) 5 mg PO DAILY [facility] Last Admin: 12/09/17 08:06 Dose: 5 mg Apixaban (Eliquis) 2.5 mg PO BID [facility] Last Admin: 12/09/17 08:05 Dose: 2.5 mg Aspirin (Aspirin 81 Mg Chew Tab*) 81 mg PO DAILY [facility] Last Admin: 12/09/17 08:06 Dose: 81 mg Atorvastatin Calcium (Lipitor*) 80 mg PO QPM [facility] Last Admin: 12/09/17 17:00 Dose: 80 mg Dextrose (D50w Syringe 50 Ml*) 12.5 gm IV PUSH .FOR FS < 60 - SS PRN PRN Reason: FS < 60 Ferrous Sulfate (Ferrous Sulfate Tab*) 325 mg PO DAILY [facility] Insulin Glargine (Lantus(*)) 20 units SUBCUT QAM [facility] Last Admin: 12/09/17 08:06 Dose: 20 units Insulin Human Lispro (Humalog*) 0 units SUBCUT ACHS [facility]; Protocol Last Admin: 12/09/17 17:00 Dose: 2 units Isosorbide Mononitrate (Imdur Er Tab*) 30 mg PO DAILY [facility] Last Admin: 12/09/17 08:05 Dose: 30 mg Multivitamins/Minerals (Theragran/Minerals Tab*) 1 tab PO DAILY [facility] Last Admin: 12/09/17 08:05 Dose: 1 tab Omeprazole (Prilosec Cap*) 20 mg PO 0600 [facility] Last Admin: 12/09/17 05:30 Dose: 20 mg Potassium Chloride (Klor Con Er Tab*) 40 meq PO DAILY [facility] Last Admin: 12/09/17 08:06 Dose: 40 meq Prochlorperazine Edisylate (Compazine Inj*) 5 mg IV Q6H PRN PRN Reason: NAUSEA/VOMITING Objective Vital Signs: Temp Pulse Resp BP Pulse Ox 98.8 F 66 16 121/75 96 12/09/17 12:00 12/09/17 17:00 12/09/17 17:00 12/09/17 17:00 12/09/17 17:00 Intake and Output Last 24 Hours 12/07/17 12/08/17 12/09/17 12/10/17 04:59 04:59 04:59 04:59 Intake Total 700 2752 540 Output Total 1999 1649 1600 Balance -1300 1102 -1060 Weight 159 lb 6.307 oz 160 lb 0.889 oz Intake: IV Fluids 200 NS 200 Medicated IV 300 KCL 300 Oral 700 1990 540 Packed Cells 262 Output: Urine 1999 1649 1599 Other: Estimated Stool Amount Medium Oxygen Devices in Use Now: Nasal Cannula Appearance: lean male, prosthesis on RLE, seated at 40 degrees appears comfortable. Eyes: No Scleral Icterus, PERRLA Ears/Nose/Mouth/Throat: Clear Oropharnyx Neck: Trachea Midline, No Thyroid Enlargement, Masses Respiratory: Symmetrical Chest Expansion and Respiratory Effort - crackles in the bases t approx 1/3 up the lungfields. Cardiovascular: RRR - 2-3/6 late peaking murmur RUSB, soft S2, louder esposito systolic murmur at apex, no S2. Abdominal: NL Sounds; No Tenderness; No Distention Extremities: No Edema Skin: - - LLE luke warm, palpable PTP, changes c/w chronic venous stasis. Neurological: Alert and Oriented x 3 Lines/Tubes/Other Access: Clean, Dry and Intact Peripheral IV Laboratory Results: 12/09/17 05:23 12/09/17 05:23 Total Bilirubin 1.40 mg/dL (0.2-1.0) H 12/09/17 05:23 AST 28 U/L (13-39) 12/09/17 05:23 ALT 29 U/L (7-52) 12/09/17 05:23 Alkaline Phosphatase 59 U/L (34-104) 12/09/17 05:23 CK-MB (CK-2) 3.4 ng/mL (0.6-6.3) 12/08/17 06:20 B-Natriuretic Peptide 1147 pg/mL (-100) H 12/07/17 10:40 Total Protein 6.1 g/dL (6.4-8.9) L 12/09/17 05:23 Albumin 2.9 g/dL (3.2-5.2) L 12/09/17 05:23 Globulin 3.2 g/dL (2-4) 12/09/17 05:23 Albumin/Globulin Ratio 0.9 (1-3) L 12/09/17 05:23 12/07/17 12/07/17 12/07/17 10:40 13:29 17:50 Troponin I 0.15 H* 0.30 H* 0.65 H* 12/08/17 12/08/17 12/08/17 00:28 06:20 12:30 Troponin I 0.74 H* 0.88 H* 0.69 H* Diagnostic Imaging: CXR: Pulmonary edema Echo October 2017 (Dr Hill) EF 50-55%, LVH, mod , mod MR. Unable to estimate PA pressure. EKG Data: Monitor: NSR, occ PAC's Assessment/Plan 82 yo male admitted SOB with CHF. 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 Valvular heart disease with and MR a factor as well. I personally reviewed the echo, agree is moderate. Dimensionless Index is 0.31-0.30 (c/w moderate ), looking E/e' ratios LVED is likely very elevated. For now continue with diuresis. RI: If never done, check renal arteries for occlusion, with PVD at risk for REED. Consider formal evaluation of CrCl. Consider renal consult if the patient has any interest in dialysis. ACS/Trops: Known CAD and at risk for progression, but not currently a candidate for cath unless we have dialysis back up and patient understanding that catheterization could lead to renal failure/permanent dialysis. Medical management for now. Anemia: Likely multifactorial: ACD from RI and more, at risk for AVM's from aortic valve, shearing from valves, very turbulent among more conventional GI bleeding and non GI sources. Based on history of no black stools unlkely BUN elevation is from GI bleeding. Consider GI and heme/onc evaluation. Anemia is contributing to increased cardiac demands, can contribute to increased gradients across the aortic valve. 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 Valvular heart disease and diastolic dysfunction is a factor. He is not a candidate for any invasive cardiovascular testing or procedures with current renal statue and anemia. If after evaluation of kidneys and anemia it is felt there is potential benefit to evaluating the patients coronary arteries and valves, and antiplatelet agents could be tolerated, then catheterization could be considered. If invasive measures can't be performed safely or if the patient does not want to proceed with aggressive measure, palliative options should be looked into. Very complex patient with multiorgan/systemic illness.
[2017-12-10] MEDS: Omeprazole CAP* 20 MG PO SCH (05:52)
[2017-12-10 06:59] LABS: ABS Basophils 0.1 10^3/ul (0-0.2); ABS Eosinophils 0.3 10^3/ul (0-0.6); ABS Lymphocytes 0.3 10^3/ul (1.0-4.8); ABS Nucleated RBC 0 10^3/ul; Eosinophil % 3.4 % (0-6); Hematocrit 29 % (42-52); Hemoglobin 9.9 g/dl (14.0-18.0); Lymphocyte % 3.3 % (25-47); Mean Corpuscular HGB Conc 34 g/dl (31-36); Mean Corpuscular Hemoglobin 29 pg (27-31); Mean Corpuscular Volume 85 fL (80-94); Mean Platelet Volume 6.7 um3 (7.4-10.4); Nucleated Red Blood Cells % 0; Platelet Count 313 10^3/ul (150-450); Red Blood Count 3.42 10^6/ul (4.00-5.40); Red Cell Distribution Width 15 % (10.5-15); White Blood Count 9.7 10^3/ul (3.5-10.8)
[2017-12-10 07:24] LABS: EGFR Non-African American 34.1 (>60)
[2017-12-10] MEDS: Insulin LISPRO* 1 UNITS UNIT SUBCUT SCH ×4 (08:49→21:35)
[2017-12-10] MEDS: Isosorbide Mononitrate ER TAB* 30 MG PO SCH (09:01)
[2017-12-10] MEDS: Apixaban* 2.5 MG TAB PO SCH ×2 (09:01→21:34)
[2017-12-10] MEDS: Aspirin 81 mg CHEW TAB* 81 MG TAB.CHEW PO SCH (09:01)
[2017-12-10] MEDS: Ferrous Sulfate TAB* 325 MG PO SCH (09:01)
[2017-12-10] MEDS: Multivitamins/Minerals TAB PO SCH (09:02)
[2017-12-10] MEDS: amLODIPine TAB* 5 MG PO SCH (09:02)
[2017-12-10] MEDS: Potassium Chlor TAB* 20 MEQ TAB.ER PO SCH (09:02)
[2017-12-10] MEDS: Insulin GLARGINE(*) 1 UNITS UNIT SUBCUT SCH (09:03)
--- NOTE | 2017-12-10 10:37 | RAD ---
Indication: CHF 2 views of the chest including dual energy PA views are reviewed. Comparison is made with previous exam dated December 07, 2017. Interstitial edema appears to BE improved since December 07, 2017. Small bilateral pleural effusions are noted. Mild cardiomegaly is noted. There may be underlying COPD noted. IMPRESSION: Interstitial edema appears to BE improved when compared to previous exam of December 07, 2017. Small bilateral pleural effusions are noted.
[2017-12-10] MEDS ORDERED: Bumetanide IV* 0.25 MG/ML 4 ML VIAL SLOW PUSH ONE (12:00)
--- NOTE | 2017-12-10 15:35 | PN ---
Subjective Date of Service: 12/10/17 Interval History: Decreased cough but SOB with movement No CP or other discomfort no melena or BRBPR Family History: Unchanged from Admission Social History: Unchanged from Admission Past Medical History: Unchanged from Admission Objective Active Medications: Acetaminophen (Tylenol Tab*) 650 mg PO Q6H PRN PRN Reason: pain/fever Amiodarone HCl (Cordarone Tab*) 100 mg PO MOWEFR [facility] Last Admin: 12/09/17 12:45 Dose: 100 mg Amlodipine Besylate (Norvasc Tab*) 5 mg PO DAILY [facility] Last Admin: 12/10/17 09:02 Dose: 5 mg Apixaban (Eliquis) 2.5 mg PO BID [facility] Last Admin: 12/10/17 09:01 Dose: 2.5 mg Aspirin (Aspirin 81 Mg Chew Tab*) 81 mg PO DAILY [facility] Last Admin: 12/10/17 09:01 Dose: 81 mg Atorvastatin Calcium (Lipitor*) 80 mg PO QPM [facility] Last Admin: 12/09/17 17:00 Dose: 80 mg Dextrose (D50w Syringe 50 Ml*) 12.5 gm IV PUSH .FOR FS < 60 - SS PRN PRN Reason: FS < 60 Ferrous Sulfate (Ferrous Sulfate Tab*) 325 mg PO DAILY [facility] Last Admin: 12/10/17 09:01 Dose: 325 mg Insulin Glargine (Lantus(*)) 20 units SUBCUT QAM [facility] Last Admin: 12/10/17 09:03 Dose: 20 units Insulin Human Lispro (Humalog*) 0 units SUBCUT ACHS [facility]; Protocol Last Admin: 12/10/17 13:09 Dose: 3 units Isosorbide Mononitrate (Imdur Er Tab*) 30 mg PO DAILY [facility] Last Admin: 12/10/17 09:01 Dose: 30 mg Multivitamins/Minerals (Theragran/Minerals Tab*) 1 tab PO DAILY [facility] Last Admin: 12/10/17 09:02 Dose: 1 tab Omeprazole (Prilosec Cap*) 20 mg PO 0600 [facility] Last Admin: 12/10/17 05:52 Dose: 20 mg Potassium Chloride (Klor Con Er Tab*) 40 meq PO DAILY [facility] Last Admin: 12/10/17 09:02 Dose: 40 meq Prochlorperazine Edisylate (Compazine Inj*) 5 mg IV Q6H PRN PRN Reason: NAUSEA/VOMITING Vital Signs - 8 hr 12/10/17 12/10/17 12/10/17 07:46 08:00 11:17 Temperature 98.0 F 97.7 F Pulse Rate 70 63 Respiratory 16 18 16 Rate Blood Pressure 122/52 112/48 (mmHg) O2 Sat by Pulse 98 98 Oximetry Oxygen Devices in Use Now: Nasal Cannula, High Flow Nasal Cannula Appearance: sitting up in bed, NAD Eyes: No Scleral Icterus, PERRLA Ears/Nose/Mouth/Throat: NL Teeth, Lips, Gums, Clear Oropharnyx Neck: NL Appearance and Movements; NL JVP, Trachea Midline Respiratory: Symmetrical Chest Expansion and Respiratory Effort, - - rales in b/ l bases Cardiovascular: RRR Abdominal: NL Sounds; No Tenderness; No Distention, No Hepatosplenomegaly Lymphatic: No Cervical Adenopathy Extremities: No Edema, - - right BKA Skin: No Rash or Ulcers Neurological: Alert and Oriented x 3 Result Diagrams: 12/10/17 06:46 12/10/17 06:46 Additional Lab and Data: . Troponin values have peaked, and represent Type II ID (NSTEMI) 12/07/17 12/08/17 12/08/17 10:40 06:20 12:30 Troponin I 0.15 H* 0.88 H* 0.69 H* BNP values this admission represent an increase over baseline - consistent with acute on chronic diastolic heart failure 11/05/17 12/07/17 03:51 10:40 B-Natriuretic Peptide 402 H 1147 H ECHO in October 2017: EF 55%, + diastolic dysfunction, worsen MR, inferior hypokinesis (c/w previous infarct) Assess/Plan/Problems-Billing Assessment: 82 yo man with multi- valvular disease, CKD p/w acute decompensated diastolic heart failure - Patient Problems (1) Anemia Comment: - 1 unit prbc 12/08 - now stable, no evidence of acute bleed -addition blood required in October. - iron studies c/w iron def if ferritin assumed to be acutely elevated -start ferrous sulfate -EGD in October after acute anemia without source -would likely need cscope if LHC is ever considered (2) Diastolic heart failure Current Visit: Yes Status: Acute Priority: High Code(s): I50.30 - UNSPECIFIED DIASTOLIC (CONGESTIVE) HEART FAILURE SNOMED Code(s): 704408918 Comment: - Acute on chronic decompensated -strict I/O and fluid restrict 1500cc/day -bumex 1mg again today 12/10 - consider nitrate -diuresis is limited by CKD. Greatly elevated BUN noted. - repeat 2 view CXR 12/10 shows improving edema -multiple valvular diseases noted and contributing to failure (3) Afib Current Visit: No Status: Acute Code(s): I48.91 - UNSPECIFIED ATRIAL FIBRILLATION SNOMED Code(s): 52047303 Comment: continue home amiodarone. c/w apixaban (4) CKD (chronic kidney disease) stage 4, GFR 15-29 ml/min Comment: limiting diuresis would need HD backup if ever gets LHC (LHC not recommended at this time) Will ask for nephrology consult UA pending (5) Elevated troponin Comment: Again elevated (05/2017, October 2017, and earlier this month) May represent type 2 NSTEMI although underlying dz cannot be ruled out A LHC may be appropriate although limited by h/o anemia from unidentified source AND kidney failure Appreciate Cardiology assistance c/w ASA (6) Hyperkalemia Comment: - resolved (7) DVT prophylaxis Comment: watson
[2017-12-10] MEDS: Atorvastatin* 80 MG TAB PO SCH (18:23)
[2017-12-11 02:57] LABS: Urine Appearance Clear; Urine Blood Negative (Negative); Urine Color Yellow; Urine Ketones Negative (Negative); Urine Protein Negative (Negative); Urine Specific Gravity 1.012 (1.010-1.030); Urine Urobilinogen Positive (Negative)
[2017-12-11] MEDS: Omeprazole CAP* 20 MG PO SCH (05:17)
[2017-12-11 07:13] LABS: ABS Basophils 0.1 10^3/ul (0-0.2); ABS Eosinophils 0.5 10^3/ul (0-0.6); ABS Lymphocytes 0.4 10^3/ul (1.0-4.8); ABS Monocytes 1.2 10^3/ul (0-0.8); ABS Neutrophils 8.2 10^3/ul (1.5-7.7); ABS Nucleated RBC 0 10^3/ul; Eosinophil % 4.3 % (0-6); Hematocrit 27 % (42-52); Hemoglobin 9.1 g/dl (14.0-18.0); Lymphocyte % 3.6 % (25-47); Mean Corpuscular HGB Conc 34 g/dl (31-36); Mean Corpuscular Hemoglobin 29 pg (27-31); Mean Corpuscular Volume 85 fL (80-94); Mean Platelet Volume 6.9 um3 (7.4-10.4); Nucleated Red Blood Cells % 0.2; Platelet Count 336 10^3/ul (150-450); Red Cell Distribution Width 15 % (10.5-15); White Blood Count 10.4 10^3/ul (3.5-10.8)
[2017-12-11 07:28] LABS: EGFR Non-African American 37.9 (>60)
[2017-12-11] MEDS: Insulin LISPRO* 1 UNITS UNIT SUBCUT SCH ×4 (08:25→21:20)
[2017-12-11] MEDS: Insulin GLARGINE(*) 1 UNITS UNIT SUBCUT SCH (08:34)
[2017-12-11] MEDS: Isosorbide Mononitrate ER TAB* 30 MG PO SCH (08:37)
[2017-12-11] MEDS: Apixaban* 2.5 MG TAB PO SCH ×2 (08:37→21:20)
[2017-12-11] MEDS: Ferrous Sulfate TAB* 325 MG PO SCH (08:37)
[2017-12-11] MEDS: Multivitamins/Minerals TAB PO SCH (08:37)
[2017-12-11] MEDS: Aspirin 81 mg CHEW TAB* 81 MG TAB.CHEW PO SCH (08:37)
[2017-12-11] MEDS: amLODIPine TAB* 5 MG PO SCH (08:37)
[2017-12-11] MEDS: Potassium Chlor TAB* 20 MEQ TAB.ER PO SCH (08:38)
[2017-12-11] MEDS ORDERED: Bumetanide IV* 0.25 MG/ML 4 ML VIAL SLOW PUSH ONE (10:50)
[2017-12-11] MEDS: Amiodarone TAB* 200 MG PO SCH (13:03)
[2017-12-11] MEDS ORDERED: Iron Sucrose* 200 MG in NS 0.9% 100 ML* 100 ML IVPB ONE (16:04)
--- NOTE | 2017-12-11 16:06 | PN ---
Subjective Date of Service: 12/11/17 Interval History: Breathing feels the same Denies Chest pain No other complaints Family History: Unchanged from Admission Social History: Unchanged from Admission Past Medical History: Unchanged from Admission Objective Active Medications: Acetaminophen (Tylenol Tab*) 650 mg PO Q6H PRN PRN Reason: pain/fever Amiodarone HCl (Cordarone Tab*) 100 mg PO MOWEFR [facility] Last Admin: 12/11/17 13:03 Dose: 100 mg Amlodipine Besylate (Norvasc Tab*) 5 mg PO DAILY [facility] Last Admin: 12/11/17 08:37 Dose: 5 mg Apixaban (Eliquis) 2.5 mg PO BID [facility] Last Admin: 12/11/17 08:37 Dose: 2.5 mg Aspirin (Aspirin 81 Mg Chew Tab*) 81 mg PO DAILY [facility] Last Admin: 12/11/17 08:37 Dose: 81 mg Atorvastatin Calcium (Lipitor*) 80 mg PO QPM [facility] Last Admin: 12/10/17 18:23 Dose: 80 mg Dextrose (D50w Syringe 50 Ml*) 12.5 gm IV PUSH .FOR FS < 60 - SS PRN PRN Reason: FS < 60 Ferrous Sulfate (Ferrous Sulfate Tab*) 325 mg PO DAILY [facility] Last Admin: 12/11/17 08:37 Dose: 325 mg Insulin Glargine (Lantus(*)) 20 units SUBCUT QAM [facility] Last Admin: 12/11/17 08:34 Dose: 20 units Insulin Human Lispro (Humalog*) 0 units SUBCUT ACHS [facility]; Protocol Last Admin: 12/11/17 12:57 Dose: 3 units Isosorbide Mononitrate (Imdur Er Tab*) 30 mg PO DAILY [facility] Last Admin: 12/11/17 08:37 Dose: 30 mg Multivitamins/Minerals (Theragran/Minerals Tab*) 1 tab PO DAILY [facility] Last Admin: 12/11/17 08:37 Dose: 1 tab Omeprazole (Prilosec Cap*) 20 mg PO 0600 [facility] Last Admin: 12/11/17 05:17 Dose: 20 mg Potassium Chloride (Klor Con Er Tab*) 40 meq PO DAILY [facility] Last Admin: 12/11/17 08:38 Dose: 40 meq Prochlorperazine Edisylate (Compazine Inj*) 5 mg IV Q6H PRN PRN Reason: NAUSEA/VOMITING Vital Signs - 8 hr 12/11/17 12/11/17 12/11/17 08:02 09:56 11:29 Temperature 98.2 F 97.6 F Pulse Rate 71 78 Respiratory 16 16 Rate Blood Pressure 129/47 122/48 (mmHg) O2 Sat by Pulse 99 99 97 Oximetry Oxygen Devices in Use Now: Nasal Cannula, High Flow Nasal Cannula Appearance: NAD, sitting in chair Eyes: No Scleral Icterus, PERRLA Ears/Nose/Mouth/Throat: NL Teeth, Lips, Gums, Clear Oropharnyx Neck: NL Appearance and Movements; NL JVP Respiratory: Symmetrical Chest Expansion and Respiratory Effort, Clear to Auscultation Cardiovascular: RRR Abdominal: NL Sounds; No Tenderness; No Distention Lymphatic: No Cervical Adenopathy Extremities: No Edema, - - righ BKA Skin: No Rash or Ulcers Neurological: Alert and Oriented x 3 Result Diagrams: 12/11/17 06:40 12/11/17 06:40 Additional Lab and Data: . Troponin values have peaked, and represent Type II [place] (NSTEMI) 12/07/17 12/08/17 12/08/17 10:40 06:20 12:30 Troponin I 0.15 H* 0.88 H* 0.69 H* BNP values this admission represent an increase over baseline - consistent with acute on chronic diastolic heart failure 11/05/17 12/07/17 03:51 10:40 B-Natriuretic Peptide 402 H 1147 H ECHO in October 2017: EF 55%, + diastolic dysfunction, worsen MR, inferior hypokinesis (c/w previous infarct) Assess/Plan/Problems-Billing Assessment: 82 yo man with multi- valvular disease, CKD p/w acute decompensated diastolic heart failure - Patient Problems (1) Anemia Comment: - 1 unit prbc 12/08 - now stable, no evidence of acute bleed - addition blood required in October. -EGD in October after acute anemia without source - iron studies c/w iron def if ferritin assumed to be acutely elevated -start ferrous sulfate -venofer today and potenially again tomorrow if he remains -would likely need cscope if LHC is ever considered (2) Diastolic heart failure Current Visit: Yes Status: Acute Priority: High Code(s): I50.30 - UNSPECIFIED DIASTOLIC (CONGESTIVE) HEART FAILURE SNOMED Code(s): 238667263 Comment: - Acute on chronic decompensated -strict I/O and fluid restrict 1500cc/day -bumex 1mg again today 12/10 and 12/11 - consider nitrate -diuresis is limited by CKD. Greatly elevated BUN noted. - repeat 2 view CXR 12/10 shows improving edema -multiple valvular diseases noted and contributing to failure (3) Afib Current Visit: No Status: Acute Code(s): I48.91 - UNSPECIFIED ATRIAL FIBRILLATION SNOMED Code(s): 49125531 Comment: continue home amiodarone. c/w apixaban (4) CKD (chronic kidney disease) stage 4, GFR 15-29 ml/min Comment: limiting diuresis would need HD backup if ever gets LHC (LHC not recommended at this time) appreciate nephro c/s. Risk is greatest now in setting of acute insult. Would be less if performed later. Would favor OD usp over HD with valvular disorder (5) Elevated troponin Comment: Again elevated (05/2017, October 2017, and earlier this month) May represent type 2 NSTEMI although underlying dz cannot be ruled out A LHC may be appropriate although limited by h/o anemia from unidentified source AND kidney failure Appreciate Cardiology assistance c/w ASA (6) Hyperkalemia Comment: - resolved (7) DVT prophylaxis Comment: watson
[2017-12-11] MEDS: Atorvastatin* 80 MG TAB PO SCH (18:44)
[2017-12-12] MEDS: Omeprazole CAP* 20 MG PO SCH (04:58)
[2017-12-12 05:48] LABS: ABS Basophils 0.1 10^3/ul (0-0.2); ABS Eosinophils 0.5 10^3/ul (0-0.6); ABS Lymphocytes 0.4 10^3/ul (1.0-4.8); ABS Monocytes 1.4 10^3/ul (0-0.8); ABS Neutrophils 7.8 10^3/ul (1.5-7.7); ABS Nucleated RBC 0 10^3/ul; Eosinophil % 4.5 % (0-6); Hematocrit 27 % (42-52); Lymphocyte % 4.1 % (25-47); Mean Corpuscular HGB Conc 34 g/dl (31-36); Mean Corpuscular Hemoglobin 29 pg (27-31); Mean Corpuscular Volume 85 fL (80-94); Mean Platelet Volume 6.9 um3 (7.4-10.4); Nucleated Red Blood Cells % 0; Platelet Count 353 10^3/ul (150-450); Red Blood Count 3.15 10^6/ul (4.00-5.40); Red Cell Distribution Width 15 % (10.5-15); White Blood Count 10.2 10^3/ul (3.5-10.8)
[2017-12-12 06:07] LABS: EGFR Non-African American 37.7 (>60)
[2017-12-12] MEDS: Insulin LISPRO* 1 UNITS UNIT SUBCUT SCH ×4 (07:35→21:21)
[2017-12-12] MEDS: Insulin GLARGINE(*) 1 UNITS UNIT SUBCUT SCH (08:06)
[2017-12-12] MEDS: Isosorbide Mononitrate ER TAB* 30 MG PO SCH (08:07)
[2017-12-12] MEDS: Potassium Chlor TAB* 20 MEQ TAB.ER PO SCH (08:07)
[2017-12-12] MEDS: Apixaban* 2.5 MG TAB PO SCH ×2 (08:07→21:18)
[2017-12-12] MEDS: amLODIPine TAB* 5 MG PO SCH (08:07)
[2017-12-12] MEDS: Multivitamins/Minerals TAB PO SCH (08:07)
[2017-12-12] MEDS: Ferrous Sulfate TAB* 325 MG PO SCH (08:07)
[2017-12-12] MEDS: Aspirin 81 mg CHEW TAB* 81 MG TAB.CHEW PO SCH (08:07)
[2017-12-12] MEDS ORDERED: Bumetanide IV* 0.25 MG/ML 4 ML VIAL SLOW PUSH ONE (11:01)
[2017-12-12] MEDS ORDERED: Iron Sucrose* 200 MG in NS 0.9% 100 ML* 100 ML IVPB ONE (13:30)
--- NOTE | 2017-12-12 13:32 | PN ---
Subjective Date of Service: 12/12/17 Interval History: Breathing is feeling better but still SOB with ambulation Titrated off of oxygen with me in room today No pain, N/V, LH Family History: Unchanged from Admission Social History: Unchanged from Admission Past Medical History: Unchanged from Admission Objective Active Medications: Acetaminophen (Tylenol Tab*) 650 mg PO Q6H PRN PRN Reason: pain/fever Amiodarone HCl (Cordarone Tab*) 100 mg PO MOWEFR [facility] Last Admin: 12/11/17 13:03 Dose: 100 mg Amlodipine Besylate (Norvasc Tab*) 5 mg PO DAILY [facility] Last Admin: 12/12/17 08:07 Dose: 5 mg Apixaban (Eliquis) 2.5 mg PO BID [facility] Last Admin: 12/12/17 08:07 Dose: 2.5 mg Aspirin (Aspirin 81 Mg Chew Tab*) 81 mg PO DAILY [facility] Last Admin: 12/12/17 08:07 Dose: 81 mg Atorvastatin Calcium (Lipitor*) 80 mg PO QPM [facility] Last Admin: 12/11/17 18:44 Dose: 80 mg Dextrose (D50w Syringe 50 Ml*) 12.5 gm IV PUSH .FOR FS < 60 - SS PRN PRN Reason: FS < 60 Docusate Sodium (Colace Cap*) 200 mg PO DAILY [facility] Ferrous Sulfate (Ferrous Sulfate Tab*) 325 mg PO DAILY [facility] Last Admin: 12/12/17 08:07 Dose: 325 mg Iron Sucrose 200 mg/ Sodium (Chloride) 110 mls @ 110 mls/hr IVPB ONCE ONE Stop: 12/12/17 14:29 Insulin Glargine (Lantus(*)) 20 units SUBCUT QAM [facility] Last Admin: 12/12/17 08:06 Dose: 20 units Insulin Human Lispro (Humalog*) 0 units SUBCUT ACHS [facility]; Protocol Last Admin: 12/12/17 12:36 Dose: 6 unit Isosorbide Mononitrate (Imdur Er Tab*) 30 mg PO DAILY [facility] Last Admin: 12/12/17 08:07 Dose: 30 mg Multivitamins/Minerals (Theragran/Minerals Tab*) 1 tab PO DAILY [facility] Last Admin: 12/12/17 08:07 Dose: 1 tab Omeprazole (Prilosec Cap*) 20 mg PO 0600 [facility] Last Admin: 12/12/17 04:58 Dose: 20 mg Polyethylene Glycol/Electrolytes (Miralax*) 17 gm PO DAILY [facility] Potassium Chloride (Klor Con Er Tab*) 40 meq PO DAILY [facility] Last Admin: 12/12/17 08:07 Dose: 40 meq Prochlorperazine Edisylate (Compazine Inj*) 5 mg IV Q6H PRN PRN Reason: NAUSEA/VOMITING Senna (Senokot Tab*) 2 tab PO BEDTIME [facility] Vital Signs - 8 hr 12/12/17 12/12/17 12/12/17 07:24 08:00 11:50 Temperature 99.7 F 98.3 F Pulse Rate 59 63 Respiratory 18 18 16 Rate Blood Pressure 115/45 117/45 (mmHg) O2 Sat by Pulse 100 96 Oximetry Oxygen Devices in Use Now: None - 97% RA, Nasal Cannula, High Flow Nasal Cannula Appearance: sitting in chair, NAD Eyes: No Scleral Icterus, PERRLA Ears/Nose/Mouth/Throat: NL Teeth, Lips, Gums, Clear Oropharnyx Neck: NL Appearance and Movements; NL JVP, Trachea Midline Respiratory: Symmetrical Chest Expansion and Respiratory Effort, Clear to Auscultation Cardiovascular: RRR, - - 2/6 ABIOLA Abdominal: NL Sounds; No Tenderness; No Distention, No Hepatosplenomegaly Lymphatic: No Cervical Adenopathy Extremities: No Edema, - - right BKA Skin: No Rash or Ulcers Neurological: Alert and Oriented x 3 Result Diagrams: 12/12/17 05:17 12/12/17 05:17 Additional Lab and Data: . Troponin values have peaked, and represent Type II [place] (NSTEMI) 12/07/17 12/08/17 12/08/17 10:40 06:20 12:30 Troponin I 0.15 H* 0.88 H* 0.69 H* BNP values this admission represent an increase over baseline - consistent with acute on chronic diastolic heart failure 11/05/17 12/07/17 03:51 10:40 B-Natriuretic Peptide 402 H 1147 H ECHO in October 2017: EF 55%, + diastolic dysfunction, worsen MR, inferior hypokinesis (c/w previous infarct) Assess/Plan/Problems-Billing Assessment: 82 yo man with multi- valvular disease, CKD p/w acute decompensated diastolic heart failure 4 days after recent discharge - Patient Problems (1) Anemia Comment: - 1 unit prbc 12/08 - now stable, no evidence of acute bleed - addition blood required in October. - EGD in October after acute anemia without source - iron studies c/w iron def if ferritin assumed to be acutely elevated -start ferrous sulfate -venofer 12/11 and 12/12 -would likely need cscope if LHC is ever considered (2) Diastolic heart failure Comment: - Acute on chronic decompensated -strict I/O and fluid restrict 1500cc/day -bumex 1mg again today 12/10 and 12/11 and 12/12 -Elevated BUN noted and is improving with diuresis (did GIB contribute? But, no e/o bleed) - repeat 2 view CXR 12/10 shows improving edema -multiple valvular diseases noted and contributing to failure (3) Afib Current Visit: No Status: Acute Code(s): I48.91 - UNSPECIFIED ATRIAL FIBRILLATION SNOMED Code(s): 24778932 Comment: continue home amiodarone. c/w apixaban (4) CKD (chronic kidney disease) stage 4, GFR 15-29 ml/min Comment: would need HD backup if ever gets LHC (LHC not recommended at this time) appreciate nephro c/s. Risk to kidenys is greatest now in setting of acute insult. Would be less if performed later. Would favor PD half-way over HD with valvular disorder (5) Elevated troponin Comment: Again elevated (05/2016, October 2017, and earlier this month) May represent type 2 NSTEMI although underlying dz cannot be ruled out A LHC may be appropriate although limited by h/o anemia from unidentified source AND kidney failure Appreciate Cardiology assistance. Decision to cath to be followed with pt in o/ p setting with Dr. Hill. Discussed with patient and daughter. Daughter may want any procedure to be completed at [employer] where she works in the [email or web address] dept. c/w ASA (6) Hyperkalemia Comment: - resolved (7) DVT prophylaxis Comment: eliquis Status and Disposition: Good daily diuresis with improvement in kidney and lung fxn. Likely 24-48 hrs additional inpatient time to further diurese before discharge home.
[2017-12-12] MEDS: Docusate CAP* 100 MG PO SCH (14:46)
[2017-12-12] MEDS: Polyethylene Glycol 3350* 17 GM PACKET PO SCH ×2 (14:47→14:48)
[2017-12-12] MEDS: Atorvastatin* 80 MG TAB PO SCH (17:59)
[2017-12-12] MEDS ORDERED: Senna TAB PO SCH (21:00)
[2017-12-13] MEDS: Omeprazole CAP* 20 MG PO SCH (05:52)
[2017-12-13 05:53] LABS: ABS Basophils 0.1 10^3/ul (0-0.2); ABS Eosinophils 0.5 10^3/ul (0-0.6); ABS Lymphocytes 0.4 10^3/ul (1.0-4.8); ABS Monocytes 1.3 10^3/ul (0-0.8); ABS Neutrophils 7.5 10^3/ul (1.5-7.7); ABS Nucleated RBC 0 10^3/ul; Hematocrit 29 % (42-52); Hemoglobin 9.7 g/dl (14.0-18.0); Lymphocyte % 4.6 % (25-47); Mean Corpuscular HGB Conc 34 g/dl (31-36); Mean Corpuscular Hemoglobin 29 pg (27-31); Mean Corpuscular Volume 85 fL (80-94); Mean Platelet Volume 6.7 um3 (7.4-10.4); Nucleated Red Blood Cells % 0; Platelet Count 379 10^3/ul (150-450); Red Blood Count 3.35 10^6/ul (4.00-5.40); Red Cell Distribution Width 15 % (10.5-15); White Blood Count 9.8 10^3/ul (3.5-10.8)
[2017-12-13 06:15] LABS: EGFR Non-African American 37.4 (>60)
[2017-12-13] MEDS: Insulin LISPRO* 1 UNITS UNIT SUBCUT SCH ×2 (07:51→12:56)
[2017-12-13] MEDS: Apixaban* 2.5 MG TAB PO SCH (08:58)
[2017-12-13] MEDS: Potassium Chlor TAB* 20 MEQ TAB.ER PO SCH (08:59)
[2017-12-13] MEDS: Docusate CAP* 100 MG PO SCH (08:59)
[2017-12-13] MEDS: Multivitamins/Minerals TAB PO SCH (09:00)
[2017-12-13] MEDS: amLODIPine TAB* 5 MG PO SCH (09:00)
[2017-12-13] MEDS: Aspirin 81 mg CHEW TAB* 81 MG TAB.CHEW PO SCH (09:00)
[2017-12-13] MEDS: Ferrous Sulfate TAB* 325 MG PO SCH (09:00)
[2017-12-13] MEDS: Isosorbide Mononitrate ER TAB* 30 MG PO SCH (09:01)
[2017-12-13] MEDS: Polyethylene Glycol 3350* 17 GM PACKET PO SCH (09:02)
[2017-12-13] MEDS: Insulin GLARGINE(*) 1 UNITS UNIT SUBCUT SCH (09:07)
[2017-12-13 13:39] VITALS: BP 109/42
--- NOTE | 2017-12-13 22:59 | DS ---
DISCHARGE SUMMARY: DATE OF ADMISSION: 12/07/17 DATE OF DISCHARGE: 12/13/17 ADMITTING PROVIDER: Hanna Amaral MD PRIMARY CARE PHYSICIAN: Dr. Harp. PRIMARY OUTPATIENT LABOR ECONOMIST: Mluugeta Hill DO CHIEF COMPLAINT: Shortness of breath. PRINCIPAL DIAGNOSES: 1. Decompensated acute diastolic heart failure. 2. Iron deficiency anemia, status post IV iron (Venofer transfusion). 3. Atrial fibrillation. 4. Chronic kidney disease, stage 3. 5. Acute kidney injury. 6. Elevated troponin. 7. Non-ST elevation myocardial infarction. 8. Likely coronary artery disease. HISTORY OF PRESENT ILLNESS AND HOSPITAL COURSE: Pradip Méndez is an 82-year-old male with past medical history of chronic diastolic CHF, insulin-dependent diabetes mellitus type 2, hypertension, hyperlipidemia, atrial fibrillation ( recently switched from Coumadin to Eliquis in the setting of a recent GI bleed) , peripheral arterial disease, chronic kidney disease stage 3, moderate aortic stenosis, status post right BKA who presented 4 days after recent discharge with complaint of shortness of breath. Of note, he had been discharged on Bumex 4 mg a day and previously had been on chlorthalidone. Please see H and P of Dr. Hanna Amaral for full details. The day prior to admission, he felt short of breath again and gained 2 pounds, and was advised to double his Bumex to 2 tablets, but symptoms continued to get worse and presented to the emergency room, was found to have an oxygen saturation of 72%. He required admission to the ICU for Vapotherm and he was diuresed. His weight on admission was 76 kg and on discharge 71.3 kg. He was placed on fluid restriction at 1.75 L, which was new for him and he was not familiar with dry weight recommendation. There was consultation with cardiology services given concern for coronary artery disease. Of note, he had previous high risk nuclear stress test last year with recommendation for medical management given his comorbidities of CKD and also recent anemia. Of note, he has never had a colonoscopy. He did have an EGD prior month, 11/05/12 admission when he presented with supratherapeutic INR on Coumadin. There has been some disagreement between the transcribing machine operator about his appropriateness for cardiac catheterization given these comorbidities with Dr. Woodruff and Dr. Alarcon not recommending catheterization, but Dr. Mauser is considering it. Dr. Beauchamp of Nephrology provided bedside consult given the CKD (of note, his creatinine on admission was 2.2 and improved back to his baseline near 1.7). The patient reported that Dr. Beauchamp advised him that dialysis may be a necessary complication if the patient's heart disease/CAD necessitated intervention. The plan developed by hospitalist service and consultants was to follow up with Dr. Hill, his outpatient transcribing machine operator, as well as PCP to discuss giving a colonoscopy and further decision of whether or not he should undergo left heart catheterization given the risks involved with dye load that may push him towards end-stage renal disease. The patient was discharged on Bumex once a day and initiation of fluid restriction with recommended goal weight near his discharge weight of 71.3 kg. He was asked to record weights daily, report any increase of greater than 3 pounds in 1 day or 5 pounds in [address] Hill and Dr. Harp. Of note, the patient was found to be iron deficient with iron less than 15, percent of sat of 5, ferritin of 107 and he did get transfusion of Venofer on 12/12/17 and initiation of ferrous sulfate along with set plans for outpatient colonoscopy. The patient was also started on multiple stool softeners hard stools. Of note, he had elevated troponin during the admission, peaked at 0.88. EKGs demonstrated atrial fibrillation and T-wave inversions in the anterolateral leads as well as lateral leads. DISCHARGE MEDICATIONS: Included: 1. Amiodarone 100 mg p.o. Thursday, Thursday, Thursday. 2. Amlodipine 5 mg daily. 3. Apixaban 2.5 mg p.o. b.i.d. 4. Aspirin 81 mg daily. 5. Atorvastatin 80 mg p.o. q.a.m. 6. Bumex 1 mg p.o. daily. 7. Calcium carbonate 1 tab p.o. q.a.m. 8. Docusate 200 mg p.o. daily (new). 9. Ferrous sulfate 325 mg p.o. daily (new). 10. Lantus 25 units daily. 11. Imdur 30 mg p.o. daily. 12. Multivitamin 1 tab p.o. daily. 13. Prilosec 20 mg p.o. daily. 14. MiraLAX 17 g p.o. daily (new). 15. Potassium chloride 40 mEq p.o. daily (new). 16. Januvia 50 mg p.o. daily. DISCHARGE DIET: Consistent carbohydrate, heart healthy, unchanged. ACTIVITY LEVEL: No restrictions. FOLLOWUP: Please follow up with Dr. Mulugeta Hill as soon as can be arranged, hopefully within the next week when daughter can accompany him, as she plans to be in town from [place] between Thursday and Thursday of next week. Dr. Harp, PCP, should be seen within 5 days of discharge and the patient should continue to follow up with Dr. Beauchamp as needed given his chronic kidney disease and possible need for close monitoring in the setting of left heart catheterization that may precipitate worsening kidney function. TIME SPENT ON DISCHARGE: Forty minutes. Greater than 50% was spent face-to- face discussing plan of care with the patient. [id number]/[facility]PS #: [id number] MTDD
--- NOTE | 2017-12-15 13:05 | CONS ---
NEPHROLOGY CONSULTATION: DATE OF CONSULT: 12/11/17 HISTORY OF PRESENT ILLNESS: Mr. Méndez is an 82-year-old gentleman with history of coronary artery dis ease and non-systolic congestive heart failure. He has known chronic renal insufficiency and he has a history of atrial fibrillation and hypertension. He has a history of diabetes mellitus, type 2. Rhonda moore is status post a left below the knee amputation, so it is highly likely that he has a diabetic neph ropathy as the cause of his chronic renal insufficiency. He presented because of shortness of breath a few weeks ago and he has continued to have leukocytosis, although a specific identified and presumed he has an ongoing infection. PAST MEDICAL HISTORY: Previous medical history is significant for aortic stenosis. He has had a non- ST segment elevation myocardial infarction. He has a history of peripheral arterial disease and genna nary artery disease. PAST SURGICAL HISTORY: He has had a bilateral rotator cuff repair, he has had a left knee arthroscop y. MEDICATIONS: His chronic outpatient medications include: 1. Amiodarone 100 mg Mondays, Wednesdays, and Fridays. 2. Amlodipine 10 mg daily. 3. Apixaban 2.5 mg twice a day. 4. Aspirin 81 mg daily. 5. Atorvastatin 80 mg at bedtime. 6. Bumetanide 1 mg daily. 7. Calcium with vitamin D 1 daily. 8. Lantus 25 units every morning. 9. Imdur 30 mg daily. 10. Multivitamins 1 daily. 11. Omeprazole 10 mg daily. 12. Januvia 50 mg daily. ALLERGIES: He is allergic to FUROSEMIDE, TRAMADOL, KATHRYN INHIBITORS, ALDACTONE, VALSARTAN, and ANGIOTE NSIN RECEPTOR BLOCKERS. SOCIAL HISTORY: There is no history of tobacco or alcohol use. REVIEW OF SYSTEMS: Negative except for the present and previous medical illnesses. PHYSICAL EXAM: He was normocephalic, he was anicteric. There was no jugular venous distention. Sonya st was clear. Heart revealed regular rhythm without murmurs. There was a right BKA. There was 1+ e bebe to his lower extremities. DIAGNOSTIC STUDIES/LAB DATA: Review of his laboratory studies revealed a white count of 9.8, hemoglo bin of 9.7. Sodium 141, potassium 4, total CO2 35, chloride 100, BUN 57, and creatinine 1.76, he has been as high as 2.27 within the last week. IMPRESSION: 1. Chronic renal insufficiency, probably stage 3 or 4, his eGFR suggests 37.4 cc a minute, but on th e other hand, he is recovering from an episode of renal injury. 2. Atherosclerotic cardiovascular disease. 3. Diabetes mellitus, type 2. 4. Peripheral vascular disease. 5. Hypertension. DISCUSSION: Question was asked of me to discuss the risks of contrast nephropathy as there is a cons ideration of taking him to cardiac catheterization. His risk for contrast nephropathy would be magni fied over the standard risks at the stage of renal insufficiency because of the recovery from a recen t renal injury. It would be best if possible to wait at least 6 weeks in order to be able to reduce that risk, but he would be at approximately 50% chance plus or minus a few percent of some reduction in renal function with x-ray contrast and somewhere in the vicinity of 20% to 25% of a permanent inju ry and there is a possibility that he will become dialysis dependent. There is currently controversy over the issue of the use of acetylcysteine for nephroprotection. There are a large number of trial s showing a benefit. There are also some well-done large trials showing no benefit of acetylcysteine to prevent contrast nephropathy. Really hydration is the most important well-proven technique. I t hink the risks of acetylcysteine are small, so I would probably go ahead and recommend 600 mg b.i.d. the day before procedure and the day of the procedure as there may be some benefit. Natural history f or him is going to be progression of chronic renal insufficiency, clearly nephroprotective agents in the form of KATHRYN inhibitors and ARBs are difficult. The non-dihydropyridine calcium channel blockers could be added or substituted for his antihypertensives in order to gain some degree of nephroprotect ion. I have discussed all this with the patient and with Dr. Hua. [id number]/[facility] #: [id number]
== END 2017-12-13 13:36 | disposition home or self-care (01) | DRG 280 ==
LOC: ED 09:43 → ICU 12:05 → MEDTELE 12-10 01:10
PROVIDERS: ADMIT Internal Medicine; ATTEND Internal Medicine
DX: I25.10 Atherosclerotic heart disease of native coronary artery without angina pectoris (principal); I21.4 Non-ST elevation (NSTEMI) myocardial infarction; I50.33 Acute on chronic diastolic (congestive) heart failure; J96.01 Acute respiratory failure with hypoxia; I21.A1 Myocardial infarction type 2; N17.9 Acute kidney failure, unspecified; 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 disease with heart failure and stage 1 through stage 4 chronic kidney disease, or unspecified chronic kidney disease; G61.0 Guillain-Barre syndrome; E87.1 Hypo-osmolality and hyponatremia; N18.4 Chronic kidney disease, stage 4 (severe); D50.9 Iron deficiency anemia, unspecified; I48.91 Unspecified atrial fibrillation; R74.8 Abnormal levels of other serum enzymes; N18.3 Chronic kidney disease, stage 3 (moderate); E78.5 Hyperlipidemia, unspecified; E87.6 Hypokalemia; E11.51 Type 2 diabetes mellitus with diabetic peripheral angiopathy without gangrene; E87.70 Fluid overload, unspecified; E11.22 Type 2 diabetes mellitus with diabetic chronic kidney disease; I08.0 Rheumatic disorders of both mitral and aortic valves; Z89.511 Acquired absence of right leg below knee; Z79.82 Long term (current) use of aspirin; Z79.4 Long term (current) use of insulin; Z79.899 Other long term (current) drug therapy; Z88.8 Allergy status to other drugs, medicaments and biological substances
CPT/HCPCS: 36415; 71046; 80048; 80053; 81003; 82553; 82728; 83540; 83550; 83735; 83880; 84100; 84443; 84484; 85025; 86850; 86900; 86901; 86922; 93005; 99285; A9270-GY; G8978-GP-CI; G8979-GP-CI; G8980-GP-CI; J1756; J3480; P9040

== ENCOUNTER 2017-12-29 02:51 | Inpatient (IN) | payer MEDICARE, BC ==
[2017-12-29] MEDS ORDERED: Albuterol/Ipratropium NEB.SOL* Albuterol 2.5 MG/Ipratropium 0.5 MG 3 ML INH ONE (03:07)
[2017-12-29] MEDS ORDERED: Aspirin 81 mg CHEW TAB* 81 MG TAB.CHEW PO ONE (03:07)
[2017-12-29] MEDS ORDERED: Bumetanide IV* 0.25 MG/ML 4 ML VIAL IV ONE (03:07)
[2017-12-29] MEDS ORDERED: methylPREDNISolone 125 MG* 2 ML VIAL IV ONE (03:07)
--- NOTE | 2017-12-29 03:07 | ED ---
Shortness of Breath - HPI Summary HPI Summary: 82 y/o male presents to the ED c/o acute on chronic SOB and cough starting yesterday. Dyspnea at rest. Not alleviated by anything. Tonight the pt developed CP as well. Not on O2 at home. Denies fever. Cough is nonproductive. PMHx CHF, 2x ND. Pt seen by Dr. Hill yesterday. Pt allergic to Lasix. This is scribe Ed Yin documenting for attending Loyd Carranza MD. - History of Current Complaint Chief Complaint: EDShortnessOfBreath Hx Obtained From: Patient Onset/Duration: Lasting Days, Still Present Dyspnea At: Rest Alleviating Factors: Nothing Associated Signs & Symptoms: Cough (Nonproductive), Chest Pain w/Cough - Allergy/Home Medications Allergies/Adverse Reactions: Allergies Allergy/AdvReac Type Severity Reaction Status Date / Time furosemide Allergy Mild Rash Verified 12/29/17 03:11 tramadol Allergy Mild Dizziness Verified 12/29/17 03:11 KATHRYN Inhibitors Allergy Unknown Verified 12/29/17 03:11 Reaction Details spironolactone Allergy Rash Verified 12/29/17 03:11 valsartan Allergy Unknown Verified 12/29/17 03:11 Reaction Details angiotensin receptor willie Allergy Unknown Uncoded 12/29/17 03:11 Reaction Details PMH/Surg Hx/FS Hx/Imm Hx Previously Healthy: No Endocrine/Hematology History: Reports: Hx Diabetes Denies: Hx Thyroid Disease Cardiovascular History: Reports: Hx Angina, Hx Atrial Fibrillation, Hx Congestive Heart Failure, Hx Hypercholesterolemia, Hx Hypertension - ON MEDS, Hx Peripheral Vascular Disease Denies: Hx Coronary Artery Disease, Hx Myocardial Infarction, Hx Valvular Heart Disease, Other Cardiovascular Problems/Disorders - DENIES Respiratory History: Reports: Hx Pneumonia Denies: Other Respiratory Problems/Disorders - DENIES GI History: Reports: Hx Gastrointestinal Bleed History: Reports: Hx Chronic Renal Failure, Hx Renal Disease, Other Problems/Disorders - chronic kidney dx Musculoskeletal History: Reports: Other Musculoskeletal History Denies: Hx Arthritis, Hx Osteoporosis Sensory History: Reports: Hx Cataracts, Hx Contacts or Glasses Denies: Hx Hearing Aid Opthamlomology History: Reports: Hx Cataracts, Hx Contacts or Glasses Neurological History: Reports: Other Neuro Impairments/Disorders - guillan barre Denies: Hx Headaches, Hx Seizures, Hx Transient Ischemic Attacks (TIA) - Surgical History Surgery Procedure, Year, and Place: RIGHT LEG AMPUTATION, BILAT ROTATOR CUFFS Infectious Disease History: No Infectious Disease History: Denies: Traveled Outside the [place] in Last 30 Days - Family History Known Family History: Positive: Unknown - Adopted Family History: Unknown - pt is adopted - Social History Alcohol Use: None Hx Substance Use: No Substance Use Type: Reports: None Hx Tobacco Use: No Smoking Status (MU): Never Smoked Tobacco Have You Smoked in the Last Year: No Review of Systems Constitutional: Negative Eyes: Negative ENT: Negative Positive: Chest Pain Positive: Shortness Of Breath, Cough Gastrointestinal: Negative Genitourinary: Negative Musculoskeletal: Negative Skin: Negative Neurological: Negative Psychological: Normal All Other Systems Reviewed And Are Negative: Yes Physical Exam - Summary Physical Exam Summary: Appearance: mild distress Skin: warm, dry, reflects adequate perfusion Head/face: normal Eyes: EOMI, ANUJA ENT: normal Neck: supple, non-tender Respiratory: creps b/l, Poor air entry. Cardiovascular: irregular, pulses present Abdomen: non-tender, soft Bowel: present Musculoskeletal: normal, strength/ROM intact Neuro: normal, sensory motor intact, A&Ox3 Triage Information Reviewed: Yes Vital Signs On Initial Exam: Initial Vitals Temp Pulse Resp BP Pulse Ox 98.1 F 88 30 111/49 86 12/29/17 02:53 12/29/17 02:53 12/29/17 02:53 12/29/17 02:53 12/29/17 02:53 Vital Signs Reviewed: Yes Diagnostics - Vital Signs Vital Signs Temp Pulse Resp BP Pulse Ox 12/29/17 02:53 98.1 F 88 30 111/49 86 - Laboratory Result Diagrams: 12/29/17 03:33 12/29/17 03:33 Lab Statement: Any lab studies that have been ordered have been reviewed, and results considered in the medical decision making process. - Radiology CXr Radiology Interpretation Completed By: ED Physician - CXR shows pulmonary edema - EKG 1 EKG Interpretation: 03:02 - AFIB @ [address] T changes - old changes, not new. Course/Dx - Course Assessment/Plan: 82 y/o male presents to the ED c/o acute on chronic SOB and cough starting yesterday. Dyspnea at rest. EKG @ 03:02 - AFIB @ [address] T changes - old changes, not new. CXR. Spoke with Dr. Ruano @ 04:11, who accepted the pt for admission. Pt will be admitted to the ICU. - Diagnoses Differential Diagnosis/HQI/PQRI: Positive: Bronchitis, CHF, COPD Exacerbation, Pneumonia, Pulmonary Edema, Unstable Angina Provider Diagnoses: Pulmonary edema, Respiratory failure, Renal failure, PNA (pneumonia), Hypoxia, Hyponatremia, Elevated troponin - Physician Notifications Discussed Care of Patient With: Janet Ruano Time Discussed With Above Provider: 04:11 Instructed by Provider To: Admit As Inpatient - Critical Care Time Critical Care Time: 75-104 min Discharge - Sign-Out/Discharge Documenting (check all that apply): Patient Departure - Discharge Plan Condition: Stable Disposition: ADMITTED TO [facility] - Billing Disposition and Condition Condition: STABLE Disposition: Admitted to [facility]
[2017-12-29] MEDS ORDERED: Albuterol/Ipratropium NEB.SOL* Albuterol 2.5 MG/Ipratropium 0.5 MG 3 ML ONE (03:11)
[2017-12-29 03:45] LABS: ABS Basophils 0.1 10^3/ul (0-0.2); ABS Eosinophils 0 10^3/ul (0-0.6); ABS Lymphocytes 0.2 10^3/ul (1.0-4.8); ABS Monocytes 1.5 10^3/ul (0-0.8); ABS Neutrophils 17.1 10^3/ul (1.5-7.7); ABS Nucleated RBC 0 10^3/ul; Eosinophil % 0 % (0-6); Hematocrit 29 % (42-52); Hemoglobin 9.3 g/dl (14.0-18.0); Lymphocyte % 1.2 % (25-47); Mean Corpuscular HGB Conc 32 g/dl (31-36); Mean Corpuscular Hemoglobin 27 pg (27-31); Mean Corpuscular Volume 84 fL (80-94); Mean Platelet Volume 7.6 um3 (7.4-10.4); Nucleated Red Blood Cells % 0; Platelet Count 344 10^3/ul (150-450); Red Blood Count 3.41 10^6/ul (4.00-5.40); Red Cell Distribution Width 16 % (10.5-15)
[2017-12-29 03:52] LABS: INR 1.54 (0.77-1.02)
[2017-12-29] MEDS ORDERED: Bumetanide IV* 0.25 MG/ML 4 ML VIAL SLOW PUSH ONE ×2 (03:52→09:00)
[2017-12-29 04:02] LABS: EGFR Non-African American 26.1 (>60)
[2017-12-29] MEDS ORDERED: Piperacillin/Tazobac ADVAN(*) 3.375 GM in NS 0.9% 100 ML* 100 ML IVPB ONE (04:14)
[2017-12-29] MEDS ORDERED: Senna TAB PO PRN (04:43)
[2017-12-29] MEDS ORDERED: Ondansetron INJ* 2 MG/ML VIAL IV PRN (04:43)
[2017-12-29] MEDS ORDERED: Acetaminophen TAB* 325 MG PO PRN (04:43)
[2017-12-29] MEDS ORDERED: Docusate CAP* 100 MG PO PRN (04:43)
[2017-12-29] MEDS ORDERED: Al Hydrox/Mg Hydrox/Simet LIQ* 30 ML UDC PO PRN (04:43)
[2017-12-29] MEDS ORDERED: Polyethylene Glycol 3350* 17 GM PACKET PO PRN (04:47)
[2017-12-29] MEDS ORDERED: Dextrose 50% Syringe 50 ML* 25 GM/50 ML SYRINGE IV PUSH PRN ×4 (04:53→12:11)
[2017-12-29] MEDS ORDERED: Insulin LISPRO* 1 UNITS UNIT SUBCUT ONE ×5 (04:53→14:41)
[2017-12-29] MEDS ORDERED: Magnesium Sulfate 1 GM IV* 1 GM/100 ML BAG IV ONE (05:44)
[2017-12-29 06:02] LABS: ABS Basophils 0 10^3/ul (0-0.2); ABS Eosinophils 0 10^3/ul (0-0.6); ABS Lymphocytes 0.1 10^3/ul (1.0-4.8); ABS Monocytes 0.3 10^3/ul (0-0.8); ABS Neutrophils 17.2 10^3/ul (1.5-7.7); ABS Nucleated RBC 0 10^3/ul; Eosinophil % 0 % (0-6); Hematocrit 28 % (42-52); Hemoglobin 9.2 g/dl (14.0-18.0); Lymphocyte % 0.7 % (25-47); Mean Corpuscular HGB Conc 32 g/dl (31-36); Mean Corpuscular Hemoglobin 27 pg (27-31); Mean Corpuscular Volume 84 fL (80-94); Mean Platelet Volume 7.5 um3 (7.4-10.4); Nucleated Red Blood Cells % 0; Platelet Count 339 10^3/ul (150-450); Red Blood Count 3.38 10^6/ul (4.00-5.40); Red Cell Distribution Width 16 % (10.5-15); White Blood Count 17.7 10^3/ul (3.5-10.8)
[2017-12-29] MEDS: Omeprazole CAP* 20 MG PO SCH (07:21)
[2017-12-29] MEDS ORDERED: Insulin LISPRO* 1 UNITS UNIT SUBCUT SCH (07:30)
--- NOTE | 2017-12-29 08:21 | RAD ---
Indication: Shortness of breath. Single frontal view of the chest performed at 0335 hours was reviewed. Comparison is made with previous exam dated December 24, 2017. Extensive interstitial and alveolar infiltrates are noted which has progressed since previous exam consistent with CHF. Small pleural effusions are noted. Cardiomegaly is noted. IMPRESSION: INTERSTITIAL AND ALVEOLAR INFILTRATES CONSISTENT WITH CHF AND PULMONARY EDEMA.
[2017-12-29] MEDS: Aspirin 81 mg CHEW TAB* 81 MG TAB.CHEW PO SCH (08:49)
[2017-12-29] MEDS: Isosorbide Mononitrate ER TAB* 30 MG PO SCH (08:49)
[2017-12-29] MEDS: Potassium Chlor TAB* 20 MEQ TAB.ER PO SCH (08:49)
[2017-12-29] MEDS: Ferrous Sulfate TAB* 325 MG PO SCH (08:49)
[2017-12-29] MEDS ORDERED: Apixaban* 2.5 MG TAB PO SCH (09:00)
[2017-12-29] MEDS ORDERED: amLODIPine TAB* 5 MG PO SCH (09:00)
[2017-12-29] MEDS ORDERED: nitroGLYCERIN DRIP* 25,000 MCG/250 ML BTL IV SCH (10:00)
[2017-12-29] MEDS ORDERED: Perflutren Lipid Microsphere* 3 ML VIAL ONE (10:10)
--- NOTE | 2017-12-29 11:18 | HP ---
CC: Arley Harp MD; Mulugeta Hill DO HISTORY AND PHYSICAL: DATE OF ADMISSION: 12/29/17 TIME OF EVALUATION: 0430. PRIMARY CARE PHYSICIAN: Arley Harp MD GARMENT MANUFACTURING SUPERVISOR: Mulugeta Hill DO CHIEF COMPLAINT: Shortness of breath. HISTORY OF PRESENT ILLNESS: This is an 82-year-old male with a past medical history of diastolic heart failure, who was just discharged on 12/13/17 for acute decompensated heart failure in the setting of presumed CAD, but never has done a cath, who presents to the emergency room via EMS with his daughter for worsening shortness of breath. The patient is being followed closely by Dr. Hill. He has been trying to keep him at home and managing his symptoms with titration of his Bumex. Just yesterday on 12/28/17, they increased his dose to 4 mg from 3 mg. He has been speaking with Dr. Hill and the nurse almost daily to try to keep him at home. His weight has been relatively stable at 160.9 pounds. The goal was to get him less than 160. He has been compliant with his medications. No other changes in his medications since his discharge. He is very adherent to a low-salt diet and 1500 cc of fluid restriction. He has had some sinus congestion that they thought trying Flonase would improve that. No fevers. He has had an increasing worsening dry cough over the past few days with chest pain. He was nauseated yesterday. No urinary symptoms. He has had some constipation. No abdominal pain. No chills. Otherwise, review of systems is negative. In the emergency room, the patient had labs and imaging. He was given Zosyn, 125 mg of Solu-Medrol, 4 mg of Bumex, aspirin 324 mg, DuoNeb, and referred to the hospitalist service for further evaluation. PAST MEDICAL HISTORY: 1. Recent admission from 12/07/17 to 12/13/17 for acute decompensated diastolic heart failure. 2. Diastolic heart failure, followed by Dr. Hill. 3. Iron deficiency anemia. 4. Atrial fibrillation, on anticoagulation. 5. CKD, stage 3. 6. History of NSTEMI. 7. History of presumed coronary artery disease. 8. Peripheral arterial disease. 9. Hyperlipidemia. 10. Hypertension. 11. Moderate aortic stenosis. 12. Moderate regurgitation. 13. History of GI bleed, unclear of the source. 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 15. 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 16. History of bilateral rotator cuff repair. 17. History of left knee surgery. MEDICATIONS: Per daughter, they have not changed since his discharge, which are as follows: 1. Amiodarone 100 mg p.o. Thursday, Thursday, and Thursday. 2. Amlodipine 5 mg daily. 3. Apixaban 2.5 mg p.o. b.i.d. 4. Aspirin 81 mg daily. 5. Atorvastatin 80 mg daily. 6. Bumex, now was just increased to 4 mg daily. 7. Calcium carbonate 1 tab p.o. daily. 8. Colace 200 mg p.o. daily. 9. Ferrous sulfate 325 mg daily. 10. Lantus 25 units daily. 11. Imdur 30 mg p.o. daily. 12. Multivitamin daily. 13. Prilosec 20 mg daily. 14. MiraLAX 17 g daily. 15. Potassium chloride 40 mEq daily. 16. Januvia 50 mg p.o. daily. ALLERGIES: FUROSEMIDE, TRAMADOL, KATHRYN INHIBITORS, SPIRONOLACTONE, VALSARTAN, ARBs. FAMILY HISTORY: The patient is adopted. Family history unknown. SOCIAL HISTORY: The patient lives at home with his , Mouna. He ambulates with a walker or a cane. He is independent of his ADLs. His , Mouna, and daughter, Sia Méndez, are his healthcare proxies. No history of smoking, alcohol, or illicit drug use. Code status was addressed and he is a full code. REVIEW OF SYSTEMS: A 14-point review of systems as mentioned in the HPI; otherwise, negative. PHYSICAL EXAMINATION GENERAL: Frail elderly male, in mild acute respiratory distress. Daughter is at the bedside. VITAL SIGNS: Temp 98.1, pulse rate 88, respiratory rate 22, oxygen saturation 100% on high flow of rate of 40 L at 100% FiO2, blood pressure 117/57. HEENT: Head: Normocephalic. Pupils are equal and reactive. Anicteric. Oropharynx: Mucous membranes are dry. NECK: Supple. No lymphadenopathy. RESPIRATORY: Poor aeration. Diminished breath sounds. Rales bilaterally. CARDIAC: The patient with a systolic harsh murmur, most prominent at the left sternal base. Irregularly irregular rate and rhythm. ABDOMEN: Soft, nontender, nondistended. EXTREMITIES: The patient with right BKA and prosthetic in place. Distant pulses on the left pedal pulses. No edema noted. NEUROLOGIC: Alert and oriented x3. No gross focal neurological deficits. DIAGNOSTIC STUDIES/LAB DATA: White count 19, hemoglobin 9.3, hematocrit 29, platelets 344. INR is 1.54. Blood gases: 7.43, PCO2 38, PO2 55. Sodium 125, potassium 4, chloride 88, bicarb 23, BUN 96, creatinine 2.4, glucose 435. Troponin 0.31. BNP 1274. Radiographic data: Chest x-ray showing worsening pulmonary edema compared to prior chest x-ray. EKG showing atrial fibrillation with a rate of [address] depression in the lateral leads. ASSESSMENT AND PLAN: This is an 82-year-old male with a past medical history of diastolic heart failure; chronic kidney disease, stage 3; moderate aortic stenosis with coronary artery disease, who presents to the emergency room with worsening shortness of breath, found to be in acute decompensated heart failure. 1. Shortness of breath. Assessment: The patient with acute decompensated heart failure. The etiology behind this, it is possible this is further ischemia. His troponin is trending down from his prior admission 2 weeks ago. We will continue to trend this. There was discussion about going to [facility] to get a cardiac cath. He says he never had a cath before but he has not been well enough to get there. The other concern that may have triggered this is infectious etiology. I am concerned with his white count that he also may have healthcare- associated pneumonia. Plan: We will admit him to the ICU and continue the high flow. We will change him to cefepime for healthcare-associated pneumonia, follow up on blood culture , sputum, urine legionella and pneumococcal, follow up official chest x-ray, may need further imaging. We will continue Bumex at 4 mg. We will contact Cardiology for further consultation and guidance. He just had an echocardiogram back in October, unclear the utility of repeating it this closely and as mentioned, continue to trend his troponin. Continue his aspirin. The patient does not appear to be on a beta willie. We will discuss with Cardiology, as he is followed closely by Dr. Hill, if there is role for a beta willie for this patient. 2. Acute on chronic kidney injury. The patient with worsening renal function, another reason, they are hesitant to proceed with cardiac cath. This is likely in the setting of his acute decompensated heart failure. Plan: We will renally dose his meds, monitor his renal function. 3. Atrial fibrillation, on anticoagulation. I will follow up with Cardiology discussing the risks versus benefits of him being on apixaban in the setting of his age and his renal impairment. The patient appeared to have had a gastrointestinal bleed with Coumadin. 4. Diabetes. Continue his Lantus. We will give him an extra dose of lispro now as he has elevated blood sugar and continue lispro sliding scale. Hold his Januvia. 5. Hypertension. The patient's blood pressure are low normal. We will hold his amlodipine in the setting of getting extra Bumex. Continue his Imdur. 6. Iron deficiency anemia. His H and H have remained stable. We will continue with his ferrous sulfate. 7. FEN. Continue low-salt, heart-healthy diet. We will continue daily weights and I's and O's. 8. DVT prophylaxis. The patient scores high risk. He is currently on apixaban. 9. Code status. Full code. PATIENT TIME: Greater than 50 minutes was spent doing the history and physical , half the time was spent in direct patient contact and critical care time. [id number]/[facility] #: [id number] KUSUM
--- NOTE | 2017-12-29 11:42 | ECHO ---
Patient: JACQUELINE ORTIZ [facility] Rec#: [id number] : 1935 Date: 12/29/2017 Age: 82y Height: 478 cm / 188.2 in Weight: 75 kg / 165.3 lbs Sex: M BSA: 3.94 Room#: ICU 1 Admit Date#: 12/29/2017 Type: Inpatient Referring: Jennie Koch Reading: Warren Etienne MD Laboratory Development Technician: Ro Lundberg,RDCS,RDMS CC: Mulugeta Hill DO Transthoracic Echocardiogram Indication: CHF BP: 107/66 HR: 82 Rhythm: NSR Findings History: CHF, VT, HTN, PVD, AFIB, DM Technical Comments: The study quality is fair. The study is technically limited due to patient being on BIPAP during study. Left Ventricle: The left ventricular chamber size is normal. Moderate concentric left ventricular hypertrophy is observed. There is a focal wall motion abnormality present.There is moderate hypokinesis of the proximal inferior wall and mild to moderate hypokinesis of the mid inferior wall. There is mildly decreased left ventricular systolic function. The estimated ejection fraction is 45-50%. The left ventricular diastolic filling pattern is restrictive. Left Atrium: The left atrium is moderately dilated. Right Ventricle: The right ventricular cavity size is normal. The right ventricular global systolic function is low normal. Right Atrium: The right atrium is slightly dilated. Aortic Valve: The aortic valve leaflets are moderately thickened. Systolic excursion of the aortic valve cusps is reduced. There is no evidence of aortic regurgitation. There is moderate aortic stenosis. The mean gradient of the aortic valve is 15 mmHg. The aortic valve area, by peak velocities, is calculated at 1.1 cm2. The highest aortic valve velocity was obtained with the standard probe from the A3C view. Mitral Valve: There is mitral annular calcification. The mitral valve leaflets are mildly thickened. There is mild mitral regurgitation. There is borderline mitral stenosis. Tricuspid Valve: The tricuspid valve leaflets are normal. There is trace to mild tricuspid regurgitation. Unable to estimate the right ventricular systolic pressure. Pulmonic Valve: The pulmonic valve appears normal. There is a trace pulmonic regurgitation. Pericardium: There is no significant pericardial effusion. A left pleural effusion is present. Aorta: The ascending aorta is not well visualized. The aortic arch is not well visualized. The aortic root is normal in size. Pulmonary Artery: The main pulmonary artery is not well visualized. Venous: The inferior vena cava is not visualized. Contrast: Definity was used to optimize study. A total of 2 ml was used Conclusions Moderate concentric left ventricular hypertrophy is observed. There is a focal wall motion abnormality present.There is moderate hypokinesis of the proximal inferior wall and mild to moderate hypokinesis of the mid inferior wall. There is mildly decreased left ventricular systolic function. The estimated ejection fraction is 45-50%. The left ventricular diastolic filling pattern is restrictive. The left atrium is moderately dilated. There is moderate aortic stenosis. There is mild mitral regurgitation. There is borderline mitral stenosis. Compared to report of prio study from 11/05/2017 the overall LVEF is slightly decreased (was 50-55%). The degree of mitral regurgitation is less (was moderate).The moderate aortic stenosis is unchanged. Measurements Name Value Normal Range RVIDd (AP) 2D 2.4 cm (0.9 - 2.6) RAd ISD 4CH 5.1 cm (3.4 - 4.9) RA (A4C)W 4.6 cm (2.9 - 4.6) IVSd (2D) 1.7 cm (0.6 - 1) LVPWd (2D) 1.5 cm (0.6 - 1) LVIDd (2D) 4.5 cm (3.6 - 5.4) LVIDs (2D) 3.7 cm - LV FS (2D) 19 % (25 - 45) Aortic Annulus 2.1 cm (1.4 - 2.6) Ao root diameter (2D) 3.4 cm (2.1 - 3.5) LA dimension (AP) 2D 4.4 cm (2.3 - 3.8) LAd ISD 4CH 6.2 cm (2.9 - 5.3) LA ISD 4CH W 5.7 cm (2.5 - 4.5) Name Value Normal Range LA ESV BP (A/L) index 55 ml/m2 - LV EDV SP 4CH (MOD) 154.31 ml - LV ESV SP 4CH (MOD) 85.12 ml - EF SP 4CH (MOD) 44.84 % - Name Value Normal Range MV E-wave Vmax 1.3 m/sec - MV deceleration time 161 msec - MV A-wave Vmax 0.5 m/sec - MV E:A ratio 2.6 ratio - LV septal e' Vmax 0.04 m/sec - LV lateral e' Vmax 0.05 m/sec - LV E:e' septal ratio 29 ratio - LV E:e' lateral ratio 25 ratio - Name Value Normal Range AV Vmax 2.6 m/sec - AV VTI 56 cm - AV peak gradient 27 mmHg - AV mean gradient 15 mmHg - LVOT diameter 2 cm - LVOT Vmax 0.9 m/sec - LVOT VTI 20 cm - LVOT peak gradient 3.2 mmHg - LVOT mean gradient 2 mmHg - DOI (VTI) 0.4 ratio - PANCHITO (continuity Vmax) 1.1 cm2 - PANCHITO (continuity VTI) 1.1 cm2 - Name Value Normal Range MV Vmax 1.3 m/sec - MV VTI 33 cm - MV peak gradient 7 mmHg - MV mean gradient 2 mmHg - MV PHT 90 msec - MVA (PHT) 2.4 cm2 - MVA (continuity VTI) 1.8 cm2 - Name Value Normal Range RAP 8 mmHg - Name Value Normal Range PV Vmax 0.7 m/sec - PV peak gradient 2 mmHg -
[2017-12-29] MEDS: Cefepime 2 GM in Dextrose(*) 2 GM/50 ML BAG IV SCH (12:00)
[2017-12-29] MEDS: Insulin LISPRO* 1 UNITS UNIT SUBCUT SCH ×4 (12:12→22:26)
[2017-12-29] MEDS ORDERED: Insulin GLARGINE(*) 1 UNITS UNIT SUBCUT ONE (14:41)
[2017-12-29] MEDS ORDERED: Atorvastatin* 80 MG TAB PO SCH (18:00)
[2017-12-29] MEDS ORDERED: Bumetanide IV* 0.25 MG/ML 4 ML VIAL SLOW PUSH PRN (18:09)
--- NOTE | 2017-12-29 18:26 | PN ---
Subjective Date of Service: 12/29/17 Interval History: Patient seen and examined. Remains on vapotherm, visibly SOB, denies chest pain , no fevers or chills. Daughter at bedside. Sugars remain high. Objective Active Medications: Acetaminophen (Tylenol Tab*) 650 mg PO Q4H PRN PRN Reason: FEVER/PAIN Al Hydrox/Mg Hydrox/Simethicone (Maalox Plus*) 30 ml PO Q6H PRN PRN Reason: INDIGESTION Amiodarone HCl (Cordarone Tab*) 100 mg PO MoWeFr@0900 [facility] Aspirin (Aspirin 81 Mg Chew Tab*) 81 mg PO DAILY [facility] Last Admin: 12/29/17 08:49 Dose: 81 mg Atorvastatin Calcium (Lipitor*) 80 mg PO QPM [facility] Last Admin: 12/29/17 17:01 Dose: 80 mg Bumetanide (Bumex*) 1 mg SLOW PUSH BID PRN PRN Reason: SHORTNESS OF BREATH Dextrose (D50w Syringe 50 Ml*) 12.5 gm IV PUSH .FOR FS < 60 - SS PRN PRN Reason: FS < 60 Docusate Sodium (Colace Cap*) 100 mg PO BID PRN PRN Reason: CONSTIPATION Ferrous Sulfate (Ferrous Sulfate Tab*) 325 mg PO DAILY [facility] Last Admin: 12/29/17 08:49 Dose: 325 mg Cefepime HCl (Maxipime 2 Gm In Dextrose Duplex (*)) 2 gm in 50 mls @ 100 mls/ hr IV Q24H [facility] Last Admin: 12/29/17 12:00 Dose: 100 mls/hr Nitroglycerin/Dextrose (Nitroglycerin Drip*) 25,000 mcg in 250 mls @ 3 mls/hr IV .(Initial Rate) [facility]; Protocol Stop: 12/29/17 23:59 Last Admin: 12/29/17 10:57 Dose: 3 mls/hr Insulin Glargine (Lantus(*)) 25 units SUBCUT Q24H [facility] Insulin Human Lispro (Humalog*) 0 units SUBCUT Q4H [facility]; Protocol Last Admin: 12/29/17 17:02 Dose: 10 unit Isosorbide Mononitrate (Imdur Er Tab*) 30 mg PO DAILY [facility] Last Admin: 12/29/17 08:49 Dose: 30 mg Omeprazole (Prilosec Cap*) 20 mg PO 0600 [facility] Last Admin: 12/29/17 07:21 Dose: 20 mg Ondansetron HCl (Zofran Inj*) 4 mg IV Q4H PRN PRN Reason: NAUSEA/VOMITING Polyethylene Glycol/Electrolytes (Miralax*) 17 gm PO DAILY PRN PRN Reason: CONSTIPATION Potassium Chloride (Klor Con Er Tab*) 40 meq PO DAILY [facility] Last Admin: 12/29/17 08:49 Dose: 40 meq Senna (Senokot Tab*) 1 tab PO BID PRN PRN Reason: CONSTIPATION Vital Signs - 8 hr 12/29/17 12/29/17 12/29/17 10:30 10:45 11:00 Temperature Pulse Rate 81 81 90 Respiratory 21 12 21 Rate Blood Pressure 108/55 108/60 107/51 (mmHg) O2 Sat by Pulse 100 100 97 Oximetry 12/29/17 12/29/17 12/29/17 11:30 11:45 12:00 Temperature 98.6 F Pulse Rate 80 79 81 Respiratory 22 25 24 Rate Blood Pressure 101/62 105/56 106/53 (mmHg) O2 Sat by Pulse 99 98 96 Oximetry 12/29/17 12/29/17 12/29/17 12:15 12:30 12:45 Temperature Pulse Rate 81 78 82 Respiratory 23 17 19 Rate Blood Pressure 110/54 105/55 106/58 (mmHg) O2 Sat by Pulse 98 97 97 Oximetry 12/29/17 12/29/17 12/29/17 13:00 13:15 13:30 Temperature Pulse Rate 80 81 82 Respiratory 23 24 25 Rate Blood Pressure 107/57 106/53 109/56 (mmHg) O2 Sat by Pulse 97 96 100 Oximetry 12/29/17 12/29/17 12/29/17 14:00 14:15 14:30 Temperature Pulse Rate 81 83 81 Respiratory 20 29 19 Rate Blood Pressure 108/64 113/56 109/58 (mmHg) O2 Sat by Pulse 95 94 96 Oximetry 12/29/17 12/29/17 12/29/17 14:45 15:00 15:15 Temperature Pulse Rate 81 91 83 Respiratory 22 17 24 Rate Blood Pressure 108/58 99/51 114/60 (mmHg) O2 Sat by Pulse 95 95 97 Oximetry 12/29/17 12/29/17 12/29/17 15:30 15:45 16:00 Temperature 98.6 F Pulse Rate 81 80 76 Respiratory 23 24 20 Rate Blood Pressure 108/55 101/50 104/55 (mmHg) O2 Sat by Pulse 98 96 96 Oximetry 12/29/17 12/29/17 12/29/17 16:15 16:30 16:45 Temperature Pulse Rate 78 79 76 Respiratory 19 18 17 Rate Blood Pressure 109/55 105/57 104/53 (mmHg) O2 Sat by Pulse 96 95 96 Oximetry 12/29/17 12/29/17 12/29/17 17:00 17:15 17:30 Temperature Pulse Rate 77 76 75 Respiratory 17 18 18 Rate Blood Pressure 108/56 104/57 101/56 (mmHg) O2 Sat by Pulse 95 95 95 Oximetry 12/29/17 12/29/17 17:45 18:00 Temperature Pulse Rate 83 82 Respiratory 28 16 Rate Blood Pressure 106/58 110/59 (mmHg) O2 Sat by Pulse 92 93 Oximetry Oxygen Devices in Use Now: High Flow Heated Nasal Cannula Appearance: Alert, mild distress Ears/Nose/Mouth/Throat: - - dry oral mucosa Neck: Trachea Midline, - - pos Kussmaul's sign on the right Respiratory: - - rales 1/2 up bases, poor air entry Cardiovascular: RRR Extremities: - - right traumatic BKA Skin: No Rash or Ulcers Neurological: Alert and Oriented x 3 Nutrition: - - made Result Diagrams: 12/29/17 05:54 12/29/17 05:54 Additional Lab and Data: Arterial Blood Gas Results Patient Temperature Not Reportable 12/29/17 10:45 ABG pH 7.46 (7.35-7.45) H 12/29/17 10:45 ABG pH (Temp Correct) Not Reportable 12/29/17 10:45 ABG pCO2 34 mmHg (35-45) L 12/29/17 10:45 ABG pCO2 (Temp Corrct Not Reportable 12/29/17 10:45 ABG pO2 125 mmHg (80-100) H 12/29/17 10:45 ABG pO2 (Temp Correct Not Reportable 12/29/17 10:45 ABG HCO3 25.4 mmol/L (19-31) 12/29/17 10:45 ABG O2 Saturation 98.3 % (95-98) H 12/29/17 10:45 ABG Base Excess 0.6 (-2.0-2.0) 12/29/17 10:45 Respiration Rate Not Reportable 12/29/17 10:45 O2 Delivery Device vapo 12/29/17 10:45 Ventilator Type Not Reportable 12/29/17 10:45 Vent Mode Not Reportable 12/29/17 10:45 FiO2 100 12/29/17 10:45 Inspiratory Time Not Reportable 12/29/17 10:45 PEEP Not Reportable 12/29/17 10:45 Pressure Support Not Reportable 12/29/17 10:45 Pressure Control Not Reportable 12/29/17 10:45 EPAP Not Reportable 12/29/17 10:45 IPAP Not Reportable 12/29/17 10:45 BiPAP Not Reportable 12/29/17 10:45 Diagnostic Imaging: Patient Name: JACQUELINE ORTIZ Medical Record#: [id number] Ordering Physician: Loyd Carranza MD Acct.#: [id number] : 1935 Age: 82 Sex: M Location: INTENSIVE CARE UNIT Exam Date: 12/29/17306 ADM Status: ADM IN Order Information: CHEST AP PORTABLE Accession Number: [id number] CPT: 58334 ADDENDUM R0 <Electronically signed by Alma Rosen MD in OV>12/29/17916 Dictated by: Alma Rosen MD Dictated Date/Time:12/29/17916 Transcribed Date/Time: 12/29/17915 Copy to: Loyd Carranza MD; Arley Harp MD; Janet Ruano DO; Godwin Campos MD Indication: Shortness of breath. Single frontal view of the chest performed at 0335 hours was reviewed. Comparison is made with previous exam dated December 24, 2017. Extensive interstitial and alveolar infiltrates are noted which has progressed since previous exam consistent with CHF. Small pleural effusions are noted. Cardiomegaly is noted. IMPRESSION: INTERSTITIAL AND ALVEOLAR INFILTRATES CONSISTENT WITH CHF AND PULMONARY EDEMA. <Electronically signed by Alma Rosen MD in OV> 12/29/17816 Dictated By: Alma Rosen MD Dictated Date/Time: 12/29/17816 Transcribed Date/Time: 12/29/17815 Copy to: CARDIAC ECHO: Conclusions Moderate concentric left ventricular hypertrophy is observed. There is a focal wall motion abnormality present.There is moderate hypokinesis of the proximal inferior wall and mild to moderate hypokinesis of the mid inferior wall. There is mildly decreased left ventricular systolic function. The estimated ejection fraction is 45-50%. The left ventricular diastolic filling pattern is restrictive. The left atrium is moderately dilated. There is moderate aortic stenosis. There is mild mitral regurgitation. There is borderline mitral stenosis. Assess/Plan/Problems-Billing Assessment: This is an 82 year old male with complex history of heart failure, CKD and DM tht has had multiple admissions over the last several months of SOB, HF, anemia and KAREN on CKD that presented to ER in respiratory distress, requiring vapotherm and diuresis. - Patient Problems (1) Pulmonary edema with congestive heart failure Code(s): I50.1 - LEFT VENTRICULAR FAILURE, UNSPECIFIED SNOMED Code(s): 05988289 Comment: - With concurrent hypoxic respiratory failure - Cardiology consulted - continue bumex, poor diuresis thus far - Continue nitro continuous infusion - Patient and family considering cardiac cath, Dr. Beauchamp at bedside to advise of poor prognosis for renal function if patient agrees to cath and may likely need dialysis after - Continue vapotherm, follow ABGs - Per Dr. Etienne, if patient elects DNR, he will not be a candidate for catheterization - ABG's as above - Supportive care (2) Afib Current Visit: No Status: Acute Code(s): I48.91 - UNSPECIFIED ATRIAL FIBRILLATION SNOMED Code(s): 08109858 Comment: - Continue home amiodarone - Continue apixaban (3) Anemia Code(s): D64.9 - ANEMIA, UNSPECIFIED SNOMED Code(s): 672014206 Comment: - Likely source is peristent and progressive CKD now with KAREN - Dr. Beauchamp consulted (4) CKD (chronic kidney disease) stage 4, GFR 15-29 ml/min Code(s): N18.4 - CHRONIC KIDNEY DISEASE, STAGE 4 (SEVERE) SNOMED Code(s): 206080708 Comment: - If patient needs dialysis, PD would be preferred over HD given cardiac dysfunction - Patient and family assessing risks - Counseling at length provided by Dr. Beauchamp and myself (5) Diastolic heart failure Code(s): I50.30 - UNSPECIFIED DIASTOLIC (CONGESTIVE) HEART FAILURE SNOMED Code (s): 600736075 Comment: - Acutely decompensated on chronic failure - ECHO as above - On vapotherm, titrate to comfort - CXR as above, progressive congestion from xray of 12/24 compared to last night - Continue NTG drip and bumex per cardio recs although urine output is not adequate (6) Elevated troponin Code(s): R79.89 - OTHER SPECIFIED ABNORMAL FINDINGS OF BLOOD CHEMISTRY SNOMED Code(s): 068347835 Comment: - Trops have been persistently elevated for two months - Last trop at 4.54 - Defer to cardiology for cath, with rising creat there is appreciable risk for end stage renal failure after cath (7) Type 2 diabetes mellitus Comment: - D9G=6-1 on 12/08 - Sugars running in the >400 range despite increasing doses of lantus and lispro SS - Additional one time doses of insulin provided - NPO in case of cath tomorrow - Accuchecks Q4h Status and Disposition: Code discussion with daughter - no decision made, no MOLST updated. Daughter wishes to discuss with her mother and patient together. Spent >75 mins in consultation with family and providers to determine best course of action. Prognosis: Guarded.
--- NOTE | 2017-12-29 20:55 | CONS ---
CC: Dr. Arley Harp; Dr. Mulugeta Hill; Dr. Warren Etienne; Dr. Denis Beauchamp CARDIOLOGY CONSULTATION: DATE OF CONSULT: 12/29/17 INDICATION FOR CONSULTATION: Congestive heart failure, cardiomyopathy. HISTORY OF PRESENT ILLNESS: The patient is an 82-year-old gentleman with a history of diabetes, hypertension, renal insufficiency, moderate aortic stenosis , presumed coronary artery disease with an old inferior wall RI. He is admitted to hospital with another episode of congestive heart failure. The patient has been admitted 3 times since 11/05/17 with congestive heart failure. The patient in general has flash pulmonary edema, which is similar to this incident. The patient states that he was at home. He was in bed about 3:00 in the morning, when he started having severe shortness of breath. He denied true chest pain; however, it is difficult to get a true history from. The patient was brought to the hospital and found to be in floor with congestive heart failure. He was placed on a ___ ___ oxygenator and admitted to the intensive care unit. The patient was given IV Bumex, both in the emergency room and in the ICU, which had significant improvement in his symptoms. The patient was started on IV nitroglycerin drip for improvement in his symptoms. The patient's laboratory studies shows an elevation in his troponin level up to 4.1 this morning. Again, this is his third admission for congestive heart failure since October. The patient has had extensive evaluation. His echocardiogram today shows significant LV deterioration. His EF previously been 50% to 55% and is now down to 45% with inferior wall hypokinesis. He has moderate aortic stenosis and mitral regurgitation. The patient has had a chemical nuclear stress test done in July of 2016, which showed an area of infarct to his inferior and inferoapical wall with sophy- infarct ischemia. PAST MEDICAL HISTORY: Significant for paroxysmal atrial fibrillation, congestive heart failure, renal insufficiency, aortic stenosis. 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 OUTPATIENT MEDICATIONS: 1. Amlodipine 10 mg a day. 2. Eliquis 2.5 mg b.i.d. 3. Januvia 50 mg by mouth. 4. Atorvastatin 80 mg a day. 5. Isosorbide ER 30 mg. 6. Amiodarone 100 mg Thursday, Thursday, and Thursday. 7. Aspirin 81 mg a day. 8. Insulin as directed. 9. Bumex 1 mg. 10. Iron tablets. 11. Potassium supplements. ALLERGIES: LASIX, KATHRYN INHIBITORS, SPIRONOLACTONE. SOCIAL HISTORY: He is . He lives with his . He is retired. His daughter is very involved in his care. He denies smoking. He tries to exercise regularly. PHYSICAL EXAM: Height is 5 feet 10 inches, weight is 165 pounds, temperature 98.6, heart rate is 81, blood pressure 110/54, respiratory rate is 23, oxygen saturation 98% on 6 L. Sclerae anicteric. Oropharynx is pink without erythema. Carotids are 2+ with soft bilateral bruits. JVD is normal. Thyroid is normal. Cardiac Exam: S1, S2 with a 2/6 systolic ejection murmur. No diastolic murmur. PMI is difficult to assess Lungs have mild rale to the bases. There is no rhonchi. There is no dullness to percussion. Abdomen is soft, nontender, nondistended with normoactive bowel sounds. Extremities: His left lower extremity has 2+ edema. The patient is awake and alert, oriented. He moves all 4 extremities equally. DIAGNOSTIC STUDIES/LAB DATA: CBC, white count 17.5, hemoglobin 9, hematocrit 28 which is at his baseline, platelets 339. Chemistries, sodium 127, potassium 3.8, BUN 102, creatinine 2.5 which is slightly up from his baseline at 1.9. Troponin level peak 4.4. BNP 1274. EKG normal sinus rhythm with nonspecific T-wave abnormalities, inferior wall RI. IMPRESSION: This is an 82-year-old gentleman with admission for congestive heart failure. This is his third admission for congestive heart failure since October. The patient has significant renal insufficiency. The patient has been on maximal medical therapy. He has been followed very closely by Dr. Hill. At this point, despite maximal medical therapy, the patient continues to have episodes of congestive heart failure. They seem to be ischemic in origin as he has had significant troponin elevations. The questions is whether the would undergo cardiac catheterization, at that point he would likely be on dialysis afterwards. The patient would likely have 3-vessel coronary artery disease. The patient's daughter and the patient have stated that he would not want to have coronary artery bypass surgery. At this point, the recommendation is to continue with IV diuretics, continue with his outpatient medications. His blood pressure is under good control. The patient will have a family meeting with his daughter and his as well as Dr. Beauchamp and Dr. Etienne about invasive cardiac procedures. [id number]/[facility] #: [id number] KUSUM
[2017-12-29] MEDS ORDERED: Insulin GLARGINE(*) 1 UNITS UNIT SUBCUT SCH (21:00)
[2017-12-29 23:21] LABS: Urine Appearance Clear; Urine Blood Negative (Negative); Urine Color Yellow; Urine Ketones Negative (Negative); Urine Protein Negative (Negative); Urine Specific Gravity 1.011 (1.010-1.030); Urine Urobilinogen Negative (Negative)
[2017-12-30] MEDS: Insulin LISPRO* 1 UNITS UNIT SUBCUT SCH ×3 (02:52→11:02)
[2017-12-30] MEDS: nitroGLYCERIN DRIP* 25,000 MCG/250 ML BTL IV ONE ×2 (02:53→12:37)
[2017-12-30 05:08] LABS: ABS Basophils 0 10^3/ul (0-0.2); ABS Eosinophils 0 10^3/ul (0-0.6); ABS Lymphocytes 0.3 10^3/ul (1.0-4.8); ABS Monocytes 1.1 10^3/ul (0-0.8); ABS Neutrophils 16.7 10^3/ul (1.5-7.7); ABS Nucleated RBC 0 10^3/ul; Eosinophil % 0 % (0-6); Hematocrit 26 % (42-52); Hemoglobin 8.4 g/dl (14.0-18.0); Lymphocyte % 1.4 % (25-47); Mean Corpuscular HGB Conc 33 g/dl (31-36); Mean Corpuscular Hemoglobin 28 pg (27-31); Mean Corpuscular Volume 84 fL (80-94); Mean Platelet Volume 7.5 um3 (7.4-10.4); Nucleated Red Blood Cells % 0; Platelet Count 323 10^3/ul (150-450); Red Blood Count 3.06 10^6/ul (4.00-5.40); Red Cell Distribution Width 17 % (10.5-15)
[2017-12-30 05:24] LABS: EGFR Non-African American 23.9 (>60)
[2017-12-30] MEDS: Omeprazole CAP* 20 MG PO SCH (06:03)
[2017-12-30] MEDS ORDERED: Amiodarone TAB* 200 MG PO SCH (09:00)
[2017-12-30] MEDS: Aspirin 81 mg CHEW TAB* 81 MG TAB.CHEW PO SCH (09:25)
[2017-12-30] MEDS: Ferrous Sulfate TAB* 325 MG PO SCH (09:25)
[2017-12-30] MEDS: Isosorbide Mononitrate ER TAB* 30 MG PO SCH (09:26)
[2017-12-30] MEDS: Potassium Chlor TAB* 20 MEQ TAB.ER PO SCH (09:26)
[2017-12-30] MEDS ORDERED: Heparin VIAL(*) 5000 UNITS/ML VIAL (FIVE THOUSAND) SUBCUT ONE (11:50)
[2017-12-30] MEDS: Cefepime 2 GM in Dextrose(*) 2 GM/50 ML BAG IV SCH (12:36)
[2017-12-30 15:03] VITALS: BP 110/53
--- NOTE | 2017-12-30 15:14 | PN ---
Subjective Date of Service: 12/30/17 Interval History: f/u ROPE, AMI Patient breathing more comfortable No chest discomfort Remains volume overloaded eliquis held as of yesterday AM Medications Active Medications: Acetaminophen (Tylenol Tab*) 650 mg PO Q4H PRN PRN Reason: FEVER/PAIN Al Hydrox/Mg Hydrox/Simethicone (Maalox Plus*) 30 ml PO Q6H PRN PRN Reason: INDIGESTION Amiodarone HCl (Cordarone Tab*) 100 mg PO MoWeFr@0900 [facility] Last Admin: 12/30/17 09:25 Dose: 100 mg Aspirin (Aspirin 81 Mg Chew Tab*) 81 mg PO DAILY [facility] Last Admin: 12/30/17 09:25 Dose: 81 mg Atorvastatin Calcium (Lipitor*) 80 mg PO QPM [facility] Last Admin: 12/29/17 17:01 Dose: 80 mg Bumetanide (Bumex*) 1 mg SLOW PUSH BID PRN PRN Reason: SHORTNESS OF BREATH Dextrose (D50w Syringe 50 Ml*) 12.5 gm IV PUSH .FOR FS < 60 - SS PRN PRN Reason: FS < 60 Docusate Sodium (Colace Cap*) 100 mg PO BID PRN PRN Reason: CONSTIPATION Ferrous Sulfate (Ferrous Sulfate Tab*) 325 mg PO DAILY [facility] Last Admin: 12/30/17 09:25 Dose: 325 mg Cefepime HCl (Maxipime 2 Gm In Dextrose Duplex (*)) 2 gm in 50 mls @ 100 mls/ hr IV Q24H [facility] Last Admin: 12/30/17 12:36 Dose: 100 mls/hr Nitroglycerin/Dextrose (Nitroglycerin Drip*) 25,000 mcg in 250 mls @ 11.4 mls/ hr IV ONCE ONE Stop: 12/30/17 22:33 Last Admin: 12/30/17 12:37 Dose: 11.4 mls/hr Insulin Glargine (Lantus(*)) 25 units SUBCUT Q24H [facility] Last Admin: 12/29/17 22:25 Dose: 25 units Insulin Human Lispro (Humalog*) 0 units SUBCUT ACHS [facility]; Protocol Isosorbide Mononitrate (Imdur Er Tab*) 30 mg PO DAILY [facility] Last Admin: 12/30/17 09:26 Dose: 30 mg Omeprazole (Prilosec Cap*) 20 mg PO 0600 [facility] Last Admin: 12/30/17 06:03 Dose: 20 mg Ondansetron HCl (Zofran Inj*) 4 mg IV Q4H PRN PRN Reason: NAUSEA/VOMITING Polyethylene Glycol/Electrolytes (Miralax*) 17 gm PO DAILY PRN PRN Reason: CONSTIPATION Potassium Chloride (Klor Con Er Tab*) 40 meq PO DAILY [facility] Last Admin: 12/30/17 09:26 Dose: 40 meq Senna (Senokot Tab*) 1 tab PO BID PRN PRN Reason: CONSTIPATION Objective Vital Signs: Temp Pulse Resp BP Pulse Ox 98.3 F 79 18 110/53 100 12/30/17 12:00 12/30/17 15:00 12/30/17 15:00 12/30/17 15:00 12/30/17 15:00 Oxygen Devices in Use Now: High Flow Nasal Cannula Appearance: frail, elderly man Neck: Trachea Midline, - - + jvd Respiratory: - - mild tachypnea and increased work of breathing, right basilar rales Cardiovascular: RRR - 3/6 systolic murmur Abdominal: NL Sounds; No Tenderness; No Distention Extremities: No Clubbing, Cyanosis, - - s/p right leg amputation, minimal edema L leg Neurological: Alert and Oriented x 3 Laboratory Results: 12/30/17 04:49 12/30/17 04:49 INR (Anticoag Therapy) 1.54 (0.77-1.02) H 12/29/17 03:33 APTT 33.9 seconds (26.0-36.3) 12/29/17 03:33 Total Bilirubin 0.80 mg/dL (0.2-1.0) 12/30/17 04:49 AST 31 U/L (13-39) 12/30/17 04:49 ALT 30 U/L (7-52) 12/30/17 04:49 Alkaline Phosphatase 43 U/L (34-104) 12/30/17 04:49 B-Natriuretic Peptide 2578 pg/mL (-100) H 12/29/17 18:31 Total Protein 6.4 g/dL (6.4-8.9) 12/30/17 04:49 Albumin 3.1 g/dL (3.2-5.2) L 12/30/17 04:49 Globulin 3.3 g/dL (2-4) 12/30/17 04:49 Albumin/Globulin Ratio 0.9 (1-3) L 12/30/17 04:49 12/29/17 12/29/17 12/29/17 03:33 05:54 08:30 Troponin I 0.31 H* 1.43 H* 4.48 H* Assessment/Plan We had an extensive conversation with patient, his , daughter, myself and Dr. Etienne today. He will be transferred to [facility] for consideration of cardiac catheterization and revascularization for recurrent "flash" pulmonary edema and NSTEMI in the setting of moderate , mild to moderate LV dysfunction refractory to medical management He may need dialysis in the near future, he remains volume overloaded. The last dose of eliquis was yesterday AM His longer term prognosis is guarded. Dr. Etienne discussed case with [facility] director aeronautics commission Dr Fernández. He will remain on Internal Medicine services.
--- NOTE | 2017-12-30 15:15 | TRS ---
CC: Dr. Harp; Dr. Mulugeta Hill; Dr. Sera Silva; Dr. Simone Fernández, Interventional Cardiology, [facility]; Dr. Varma, Conduit Mechanic, [facility] * TRANSFER SUMMARY: DATE OF ADMISSION: 12/29/17 DATE OF DISCHARGE: 12/30/17 PRIMARY CARE PROVIDER: Dr. Harp. OUTPATIENT ZIGZAG STITCHER: Dr. Mulugeta Hill. MY ATTENDING WHILE IN THE HOSPITAL: Dr. Sera Silva.* (DICTATED BY ESTEBAN MCCALL) PRIMARY DISCHARGE DIAGNOSES: 1. Non-ST elevation myocardial infarction. 2. Flash pulmonary edema. 3. Acute hypoxic respiratory failure. 4. Hyperglycemia. 5. Acute on chronic renal failure. 6. Possible pneumonia. SECONDARY DISCHARGE DIAGNOSES: 1. Atrial fibrillation. 2. Iron deficiency anemia. 3. Peripheral arterial disease. 4. Hypertension. 5. Hyperlipidemia. 6. Aortic stenosis. 7. Mitral regurgitation. 8. History of gastrointestinal bleed. 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 11. Bilateral rotator cuff repair. 12. History of left knee surgery. STUDIES DONE WHILE IN THE HOSPITAL: Chest x-ray from 12/29/17 read as interstitial and alveolar infiltrates consistent with CHF and pulmonary edema. Electrocardiogram on 12/29/17 shows atrial fibrillation, ST depression with T- wave inversions in V4, V5, V6, as well as I, aVL, II, and aVF, rate of 91, QTc of 501 consistent with previous exam, also done in the setting of flash pulmonary edema with elevated troponin. Transthoracic echocardiogram read as moderate concentric left ventricular hypertrophy. There is focal wall motion abnormality present. There is mild hypokinesis of the proximal inferior wall and [id number] hypokinesis of the mid inferior wall. There is mildly decreased left ventricular systolic function, estimated ejection fraction is 45% to 50%, left ventricular diastolic filling pattern is restrictive. Left atrium is moderately dilated. There is moderate aortic stenosis, mild mitral regurgitation, and borderline mitral stenosis. Decreased LVEF from 55% to 50% on prior study from 11/05/17. MEDICATIONS AT DISCHARGE: 1. Tylenol 650 mg p.o. q.4 hours as needed. 2. Maalox 30 mL q.6 hours as needed for indigestion. 3. Amiodarone 100 mg p.o. Thursday, Thursday, Thursday. 4. Aspirin 81 mg p.o. daily. 5. Lipitor 80 mg p.o. q.p.m. 6. Bumex IV 1 mg slow push b.i.d. 7. Cefepime 2 g 100 mL an hour IV q.24 hours. 8. Docusate 100 mg p.o. b.i.d. as needed for constipation. 9. Ferrous sulfate 325 mg p.o. daily. 10. Insulin glargine 25 units subcutaneous q.24 hours. 11. Insulin lispro sliding scale. 12. Imdur ER 30 mg p.o. daily. 13. Nitroglycerin drip 19 mcg per minute. 14. Omeprazole 20 mg p.o. daily. 15. Zofran 4 mg IV q.4 hours as needed for nausea and vomiting. 16. MiraLAX 17 g p.o. daily as needed for constipation. 17. Potassium chloride 40 mEq p.o. daily. 18. Scheduled Senokot 1 tab p.o. b.i.d. as needed for constipation. HOSPITAL COURSE: This is a brief summary of the patient's presentation. For more details, please see the history and physical from Dr. Janet Ruano on . In brief, the patient is an 82-year-old male with a past medical history significant for the above, who presented to the emergency department after being discharged from this institution most recently on 12/13/17. The patient at that time was admitted for shortness of breath, for decompensated acute diastolic heart failure, flash pulmonary edema, which was resistant to increase in Bumex. He required admission via ICU and was diuresed significantly of approximately 4 kg. The patient was placed on fluid restriction. The patient, at that time, had NSTEMI with T-wave inversions. The patient previously had a high-risk nuclear stress test. The patient at that time was seen in consultation by Dr. Beauchamp, who counseled that if the patient were to have a cardiac catheterization, it would likely result in exacerbation of CKD and need for dialysis. The patient was discharged to home with daily followup by phone with his primary cd manufacturing supervisor, Dr. Hill. The patient presented back to the emergency department on 12/29/17 with quick onset of shortness of breath. The patient's weight had been stable, gaining only 0.9 pounds since his most recent followup with Dr. Hill. The patient had dry cough and chest pain. He came to the emergency department for shortness of breath at the encouragement of his primary cd manufacturing supervisor, Dr. Hill. He came in, had studies as above. The patient had an elevated white blood cell count, decreased sodium, and creatinine of 2.41, glucose of 435. Troponin I initially of 0.31, which increased to 1.43 and 4.48. The patient had CRP of 135.28 and BNP of 1274. The patient was admitted to the hospital, started on a nitroglycerin drip. The patient in the emergency department was given Zosyn and vancomycin. The patient had low-grade fevers and was switched to cefepime for concern for decreased kidney function as well as for concern of pneumonia specifically hospital-acquired pneumonia due to his recent hospitalization. The patient's fever went away. The patient has initially had several heart rates above 90, but his rate control improved. The patient was initially on Vapotherm and was able to be weaned off and was saturating well, was able to be weaned off Vapotherm in the morning, 12/30/17. The patient was seen in consultation by Dr. Godwin Campos of Cardiology, who recommended cardiac catheterization as well as to continue with diuretics and for his nitroglycerin drip. The patient's blood pressure remained stable around 100/50. The patient as above was able to be weaned to 8 L of oxygen in the morning of 12/30/17. The patient had no recurrent fevers. The patient's family after a long discussion has decided to opt for cardiac catheterization despite the risks to the patient's kidneys and possible need for dialysis if the patient experiences contrast-induced nephropathy. The patient's white blood cell count remained stable at initially 19 on admission, decreasing to 18 on 12/30/17. The patient' s ABG initially showed a PO2 of 55, which with initiation of nitroglycerin drip , being placed on Vapotherm, and diuretics, increased to 125. The patient's creatinine increased from 2.41 to 2.6. While in the hospital, the patient initially had a blood glucose of 466, which came under control with glargine and insulin sliding scale. The patient was deemed too high risk to have a cardiac catheterization at this hospital due to risk of complications and he was accepted for transfer and this case was discussed with Dr. Simone Fernández at [facility] as well as Dr. Varma, the global human resources director, at [facility], and they accepted the patient in transfer. At the time of transfer, the patient is stable on 8 L of oxygen, nitroglycerin drip at 19 mcg per minute, and with a blood pressure remaining stable around 100/50. PHYSICAL EXAM ON THE DAY OF DISCHARGE: General: The patient is an 82-year-old male, who appears stated age and sitting in the bed with mildly increased work of breathing. Vital Signs: Temperature 98.3, pulse rate 80, respiratory rate 20, oxygen saturation 100% on 8 L, blood pressure 107/54. HEENT: Head: Normocephalic, atraumatic. Sclerae anicteric. No conjunctival injection. Nasal mucosa is moist. Oral mucosa moist. No pharyngeal erythema, discharge, or exudate. Neck: Supple, nontender. No lymphadenopathy. No carotid bruits auscultated. JVD to the angle of the jaw at 90 degrees. Cardiac: Regular rate and rhythm. Grade 3/6 systolic ejection murmur heard best at the right upper sternal border. Pulses 2+ in the bilateral dorsalis pedis, posterior tibial, and radial areas. No bilateral lower extremity edema or calf tenderness. Respiratory: Clear to auscultation bilaterally. No wheezes, rales , or rhonchi. Good air entry bilaterally. Abdomen: Soft, nontender, nondistended. Bowel sounds present. Normoactive in all 4 quadrants. No hepatosplenomegaly. No abdominal bruits auscultated. Positive hepatojugular reflux. Genitourinary: No suprapubic or CVA tenderness. Skin: Clean, dry, intact. No rash. The patient is missing his right lower extremity surgically. Neuro: Cranial nerves II through XII intact. No focal deficits. Alert and oriented x3. LABORATORY DATA ON DAY OF DISCHARGE: White blood cell count of 18.0, hemoglobin 8.4, hematocrit 26, RDW 17. Sodium 132, potassium 4.1, chloride 95, carbon dioxide 25, anion gap 12, BUN 111, creatinine 2.6, glucose 198, calcium 9.3. Bilirubin 0.8, AST 31, ALT 30, alkaline phosphatase 43. Total protein 6.4 , albumin 3.1, globulin 3.3. The patient is negative 1.175 L in the hospital. The patient's weight is down 10 pounds since his admission; however, this is likely an error in weighing. DISCHARGE PLAN: The patient will be transferred to [facility] for cardiac catheterization and management of his chronic kidney disease which may very well include need for dialysis due to contrast-induced nephropathy. The patient will be continued on 8 L of oxygen and nitroglycerin health inspector food at 19 mcg a minute, Bumex IV as above to be titrated at the discretion of accepting physician. The patient will be on other home medications. The patient will be continued on cefepime for empiric coverage of hospital-acquired pneumonia though this is not complete coverage. Due to the patient's prolonged QT interval and kidney function, other medications were deemed to have more harmful effects than benefits. The patient will follow up with Dr. Hill after his discharge from [facility]. The patient will follow up with his primary care provider at that time as well. The patient will be continued on fingersticks a.c. and h.s. The patient should be n.p.o. after midnight for hopeful catheterization tomorrow. The patient should have intake and output and daily weights. TIME SPENT: Approximately 90 minutes was spent on this discharge, 45 of which was spent [id number] with the patient obtaining history and physical and discussing treatment plan. ESTEBAN MCCALL [id number]/[facility] #: [id number] KUSUM
[2017-12-30] MEDS ORDERED: Insulin LISPRO* 1 UNITS UNIT SUBCUT SCH (16:30)
--- NOTE | 2017-12-31 02:28 | PN ---
PROGRESS NOTE: DATE OF SERVICE: 12/30/17 - ROOM #ICU-01 HISTORY OF PRESENT ILLNESS: I had seen Mr. Méndez on a previous hospitalization for consultation for chronic renal insufficiency. He presented on this occasion because of shortness of breath. He had been receiving intermittent diuretics at home on the basis of his weight. He had been seen as an outpatient by Dr. Hill a few days prior to admission and a chest x-ray was performed. Then, at the time of admission, another chest x-ray was performed at the same weight and revealed the progression of marked pulmonary edema as a result. He is having flash pulmonary edema probably from his cardiac condition. When I was talking with him yesterday, I noticed that he had Kussmaul sign. He also had a palpable paradoxical pulse, which was measured at 20 mmHg. There had been no evidence of pericardial effusion on his echocardiogram. He does not have a history of severe COPD or asthma and was the supposition that this was secondary to either constrictive pericarditis or restriction because of his very stiff ventricle. He did have some wall motion abnormalities on his echocardiogram, so the question was asked about the risk of kidney failure in this situation. I discussed these issues with the patient and his daughter, who is a cardiac nurse. Because he probably is in a rather low flow state as well as having acute on chronic renal insufficiency, I think he is at considerable risk for an acute deterioration of renal function at the time of a dye load for cardiac catheterization, obviously the amount of dye used will add into that problem. I discussed with him the fact that he might be dialysis dependent as a result and that I would use peritoneal dialysis for him because of his cardiac situation. He is in agreement with proceeding the dialysis should it be necessary. These issues were discussed with Dr. Hill as well as the patient and his daughter and Dr. Johnston. [id number]/[facility] #: [id number] KUSUM
== END 2017-12-30 16:23 | disposition short-term general hospital (02) | DRG 280 ==
LOC: ED 02:51 → ICU 04:43
PROVIDERS: ADMIT Pediatrics; ATTEND Pediatrics
PROC: 5A09457 Assistance with Respiratory Ventilation, 24-96 Consecutive Hours, Continuous Positive Airway Pressure (ICD-10-PCS; principal; 2017-12-29)
DX: I21.4 Non-ST elevation (NSTEMI) myocardial infarction (principal); J96.01 Acute respiratory failure with hypoxia; J18.9 Pneumonia, unspecified organism; I50.31 Acute diastolic (congestive) heart failure; N17.9 Acute kidney failure, unspecified; G61.0 Guillain-Barre syndrome; 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 disease with heart failure and stage 1 through stage 4 chronic kidney disease, or unspecified chronic kidney disease; N18.4 Chronic kidney disease, stage 4 (severe); E11.22 Type 2 diabetes mellitus with diabetic chronic kidney disease; N18.3 Chronic kidney disease, stage 3 (moderate); I48.91 Unspecified atrial fibrillation; I73.9 Peripheral vascular disease, unspecified; D50.9 Iron deficiency anemia, unspecified; E78.5 Hyperlipidemia, unspecified; I08.0 Rheumatic disorders of both mitral and aortic valves; I25.10 Atherosclerotic heart disease of native coronary artery without angina pectoris; Z89.511 Acquired absence of right leg below knee; Z79.82 Long term (current) use of aspirin; Z79.4 Long term (current) use of insulin; Z79.899 Other long term (current) drug therapy; Z88.8 Allergy status to other drugs, medicaments and biological substances
CPT/HCPCS: 36415; 36600; 71045; 80048; 80053; 81003; 82803; 82947; 83605; 83735; 83880; 84484; 85025; 85610; 85730; 86140; 87040; 87899; 93005; 93306; 99285; A9270-GY; C8929; J0692; J1644; J2543; J2930; J3475

== ENCOUNTER 2019-04-21 18:15 | Observation (INO) | payer MEDICARE, BC ==
--- OUTSIDE RECORDS SUMMARY | 2019-04-21 19:09 | XMS REPORT | Continuity of Care Document ---
:1935 External Reference #:[id number] Author Name Mulugeta Hill DO [facility] (transmitted by agent of provider Parul Burgos ) Address [address] [place] [address] Care Team Providers Name Role Phone Arley Harp MD - Internal Care Team Information Medicaid Billing Specialist [phone] Medicine Problems Active Problems Provider Date Paroxysmal atrial fibrillation Mulugeta Hill DO FACC Onset: 02/12/2016 Social History Type Date Description Comments Sex Unknown Tobacco Use Start: Unknown Never Smoked Cigarettes Smoking Status Reviewed: 03/04/19 Never Smoked Cigarettes ETOH Use Denies alcohol use Tobacco Use Start: Unknown Patient has never smoked Recreational Drug Use Denies Drug Use Exercise Type/Frequency Exercises rarely Allergies, Adverse Reactions, Alerts Active Allergies Reaction Severity Comments Date Ultram Dizzy, lightheaded 12/05/2013 Lasix rash 11/20/2015 Charles Inhibitors hyperkalemia 05/13/2016 Angiotensin Receptor hyperkalemia 05/13/2016 Blockers Spironolactone hyperkalemia when not 05/13/2016 used with another diuretic Medications Active Medications SIG Qnty Indications Ordering Date Provider Aspirin 81 1 by mouth every 30tabs Mulugeta Hill, 03/01/2019 81mg Tablets day DO FACC Amiodarone HCL Take 2 tablets 90tabs Mulugeta Hill, 08/30/2018 200mg (400 mg) once DO FACC Tablets daily Eliquis 1 tablet by mouth 60tabs I48.0 Mulugeta Hill, 11/23/2017 2.5mg Tablets twice a day. DO FACC Januvia Take 2 TABLETs By Rasheed Vera MD 11/12/2017 50mg Tablets Mouth Every Day Atorvastatin Calcium 1 by mouth every 90tabs E11.9 Mulugeta Hill, 2016 day DO FACC 80mg Tablets Nitrostat one sl q5min up 25tabs Mulugeta Hill, 07/30/2016 0.4mg Tablets to 3 doses as DO FAC Sub needed Multi For Him 50+ 1 by mouth every Unknown day Tablets Calcium + D3 1 by mouth every 90tabs Unknown day [id number] Tablets Lantus Solostar 10 units sub-q Unknown once daily 100Unit/ML Solution Pen-Inject Bumex take 1 tablet 120tabs Mulugeta Hill, 1mg Tablets once a day and an DO FAC extra 2 tablets (3 tablets total) for weight gain or shortness of breath Vyndaqel take 4 caps at hs Unknown 20mg Capsules Losartan Potassium 1/2 tab by mouth Unknown 25mg every day Tablets History Medications Aspirin 81 Take 1 by mouth 90tabs Z95.0 Mulugeta Hill, 12/09/2018 - 81mg every day DO [facility] 03/01/[address] Medications Administered in Office Medication SIG Qnty Indications Ordering Provider Date Inj, Regadenoson, 0.1 MG Mulugeta Hill, DO [facility] 07/30/2016 Injection Aminophylline Mulugeta Hill, DO [facility] 07/30/2016 Injection Technetium TC 99M Mulugeta Hill, DO [facility] 07/30/2016 Tetrofosmin, Per Unit Dose Up To 40 Millicuries Injection Inj, Regadenoson, 0.1 MG Mulugeta Hill DO [facility] 10/02/2015 Injection Inj, Regadenoson, 0.1 MG Leticia Woodruff M.D. 10/02/2015 Injection Technetium TC 99M Mulugeta Hill, DO [facility] 10/02/2015 Tetrofosmin, Per Unit Dose Up To 40 Millicuries Injection Depomedrol 80MG Rene Estrada M.D. 06/11/2010 Injection Immunizations Description No Information Available Vital Signs Date Vital Result Comment 03/04/2019 3:54pm Height 69 inches 5'9" Weight 185.00 lb with shoes BP Systolic Sitting 108 mmHg lue reg cuff BP Diastolic Sitting 54 mmHg lue reg cuff BP Systolic Standing 110 mmHg lue reg cuff BP Diastolic Standing 60 mmHg lue reg cuff Respiratory Rate 16 /min BMI (Body Mass Index) 27.3 kg/m2 Ejection Fraction 55% echo 04/19/18 03/02/2019 1:06pm Height 69 inches 5'9" Weight 184.00 lb with shoes Heart Rate 80 /min irreg BP Systolic Sitting 100 mmHg lue reg BP Diastolic Sitting 54 mmHg lue reg BP Systolic Standing 104 mmHg lue reg BP Diastolic Standing 60 mmHg lue reg Respiratory Rate 16 /min BMI (Body Mass Index) 27.2 kg/m2 Ejection Fraction 55% echo. 04/19/18 Results Test Date Facility Test Result H/L Range Note Comp Metabolic 03/02/2019 [facility] Sodium 135 mmol/L Normal 135-[address] [place] [address] [phone] Potassium 4.2 mmol/L Normal 3.5-5.0 Chloride 94 mmol/L Low 101-111 Co2 Carbon Dioxide 32 mmol/L Normal 22-32 Anion Gap 9 mmol/L Normal 2-11 Glucose 240 mg/dL High 70-100 Blood Urea Nitrogen 72 mg/dL High 6-24 Creatinine 2.53 mg/dL High 0.67-1.17 BUN/Creatinine Ratio 28.5 High 8-20 Calcium 9.3 mg/dL Normal 8.6-10.3 Total Protein 6.5 g/dL Normal 6.4-8.9 Albumin 4.1 g/dL Normal 3.2-5.2 Globulin 2.4 g/dL Normal 2-4 Albumin/Globulin Ratio 1.7 Normal 1-3 Total Bilirubin 0.80 mg/dL Normal 0.2-1.0 Alkaline Phosphatase 63 U/L Normal 34-104 Alt 52 U/L Normal 7-52 Ast 29 U/L Normal 13-39 Egfr Non- 24.6 >60 Egfr 29.7 >60 1 Laboratory test 03/02/2019 [facility] Magnesium 2.2 mg/dL Normal 1.9-2.[address] [place] [address] [phone] CBC Auto Diff 03/02/2019 [facility] White Blood 8.2 Normal 3.5 -10.[address] Count 10^3/[place] [address] [phone] Red Blood Count 4.11 10^6/uL Low 4.18-5.48 Hemoglobin 12.7 g/dL Low 14.0-18.0 Hematocrit 38 % Low 42-52 Mean Corpuscular Volume 91 fL Normal 80-94 Mean Corpuscular Hemoglobin 31 pg Normal 27-31 Mean Corpuscular HGB Conc 34 g/dL Normal 31-36 Red Cell Distribution Width 14 % Normal 10-15 Platelet Count 153 10^3/uL Normal 150-450 Mean Platelet Volume 8.8 fL Normal 7.4-10.4 Abs Neutrophils 7.2 10^3/uL Normal 1.5-7.7 Abs Lymphocytes 0.3 10^3/uL Low 1.0-4.8 Abs Monocytes 0.6 10^3/uL Normal 0-0.8 Abs Eosinophils 0.0 10^3/uL Normal 0-0.6 Abs Basophils 0.1 10^3/uL Normal 0-0.2 Abs Nucleated RBC 0.0 10^3/uL Granulocyte % 87.5 % Lymphocyte % 3.5 % Monocyte % 7.7 % Eosinophil % 0.4 % Basophil % 0.9 % Nucleated Red Blood Cells % 0.0 Laboratory test 03/02/2019 [facility] TSH (Thyroid 8.20 High 0.34-5.[address] Stim Horm) mcIU/[place] [address] [phone] Free T4 (Free Thyroxine) 0.88 ng/dL Normal 0.61-1.12 Laboratory test 11/30/2018 [facility] Blood Urea 67 mg/dL High 6-[address] [place] [address] [phone] Creatinine 11/30/2018 [facility] Creatinine 2.15 mg/dL High 0.67-1.[address] [place] [address] [phone] Egfr Non- 29.6 >60 Egfr 35.9 >60 2 Laboratory test 11/30/2018 [facility] C Reactive 1.21 mg/L Normal <8.[address] [place] [address] [phone] Erythrocyte Sed Rate 11 mm/Hr Normal 0-19 1 Because ethnic data is not always readily available, this report includes an eGFR for both -Americans and non- Americans. The National Kidney Disease Education Program (NKDEP) does not endorse the use of the MDRD equation for patients that are not between the ages of 18 and 70, are , have extremes of body size, muscle mass, or nutritional status, or are non- or non-. According to the National Kidney Foundation, irrespective of diagnosis, the stage of the disease is based on the level of kidney function: Stage Description GFR(mL/min/1.73 m(2)) 1 Kidney damage with normal or decreased GFR 90 2 Kidney damage with mild decrease in GFR 60-89 3 Moderate decrease in GFR 30-59 4 Severe decrease in GFR 15-29 5 Kidney failure <15 (or dialysis) 2 Because ethnic data is not always readily available, this report includes an eGFR for both -Americans and non- Americans. The National Kidney Disease Education Program (NKDEP) does not endorse the use of the MDRD equation for patients that are not between the ages of 18 and 70, are , have extremes of body size, muscle mass, or nutritional status, or are non- or non-. According to the National Kidney Foundation, irrespective of diagnosis, the stage of the disease is based on the level of kidney function: Stage Description GFR(mL/min/1.73 m(2)) 1 Kidney damage with normal or decreased GFR 90 2 Kidney damage with mild decrease in GFR 60-89 3 Moderate decrease in GFR 30-59 4 Severe decrease in GFR 15-29 5 Kidney failure <15 (or dialysis) Procedures Date Code Description Status 03/14/2019 90803 Cardioversion Completed 03/04/2019 13429 EKG Tracing & Interpretation Completed 03/02/2019 48017 EKG Tracing & Interpretation Completed 12/28/2018 93797 Pace Maker Eval W/Iterative Adjment Dual Lead Completed 12/28/2018 37843 Pace Maker Eval W/Iterative Adjment Dual Lead Completed 12/23/2018 10662 Icd Eval Sing,Dual,Multi Lead Remote Recpt Transm Tech Rev Completed Tech S 12/23/2018 37107 Icd Eval Sing,Dual,Multi Lead Remote Recpt Transm Tech Rev Completed Tech S 12/23/2018 10807 Pacemaker Check Remote Up To 90Days Single,Dual,Multiple Completed Lead 12/23/2018 27718 Pacemaker Check Remote Up To 90Days Single,Dual,Multiple Completed Lead 09/17/2018 56654 Icd Eval Sing,Dual,Multi Lead Remote Recpt Transm Tech Rev Completed Tech S 09/17/2018 68853 Icd Eval Sing,Dual,Multi Lead Remote Recpt Transm Tech Rev Completed Tech S 09/17/2018 37143 Pacemaker Check Remote Up To 90Days Single,Dual,Multiple Completed Lead 09/17/2018 89624 Pacemaker Check Remote Up To 90Days Single,Dual,Multiple Completed Lead Medical Devices Description No Information Available Encounters Type Date Location Provider Dx Diagnosis Office Visit 03/04/[address] [facility] Mulugeta Hill, I48.92 Unspecified atrial 4:20p Of Casing Wringer Operator DO FACC flutter I48.0 Paroxysmal atrial fibrillation Z95.0 Presence of cardiac pacemaker I50.32 Chronic diastolic (congestive) heart failure N18.9 Chronic kidney disease, unspecified 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.31 Abnormal electrocardiogram [ECG] [EKG] Office Visit 03/02/2019 1:30p [facility] Mulugeta Bender I48.92 Unspecified Of Casing Wringer Operator Hill, DO atrial flutter FACC I48.0 Paroxysmal atrial fibrillation Z95.0 Presence of cardiac pacemaker I50.32 Chronic diastolic (congestive) heart failure N18.9 Chronic kidney disease, unspecified 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 Assessments Date Code Description Provider 03/04/2019 I48.92 Unspecified atrial flutter Mulugeta Hill, DO FACC 03/04/2019 I48.0 Paroxysmal atrial fibrillation Mulugeta Hill, DO FACC 03/04/2019 Z95.0 Presence of cardiac pacemaker Mulugeta Hill, DO FACC 03/04/2019 I50.32 Chronic diastolic (congestive) heart Mulugeta Hill, DO FACC failure 03/04/2019 N18.9 Chronic kidney disease, unspecified Mulugeta Hill, DO FACC 03/04/2019 I25.2 Old myocardial infarction Mulugeta Hill, DO FACC 03/04/2019 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, 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 with 03/04/2019 Z95.2 Presence of prosthetic heart valve Mulugeta Hill, DO FACC 03/04/2019 R94.31 Abnormal electrocardiogram [ECG] [EKG] Mulugeta Hill, DO FACC 03/02/2019 I48.92 Unspecified atrial flutter Mulugeta Hill, DO FACC 03/02/2019 I48.0 Paroxysmal atrial fibrillation Mulugeta Hill, DO FACC 03/02/2019 Z95.0 Presence of cardiac pacemaker Mulugeta Hill, DO FACC 03/02/2019 I50.32 Chronic diastolic (congestive) heart Mulugeta Hill, DO FACC failure 03/02/2019 N18.9 Chronic kidney disease, unspecified Mulugeta Hill, DO FACC 03/02/2019 I25.2 Old myocardial infarction Mulugeta Hill, DO FACC 03/02/2019 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, 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 with 03/02/2019 Z95.2 Presence of prosthetic heart valve Mulugeta Hill, DO FACC 03/02/2019 I50.33 Acute on chronic diastolic (congestive) Mulugeta Hill, DO FACC heart failure 03/02/2019 I44.7 Left bundle-branch block, unspecified Mulugeta Hill, DO FACC 03/02/2019 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 block, complete Mulugeta Hill, DO FACC 03/02/2019 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 12/23/2018 I48.0 Paroxysmal atrial fibrillation Remote Device Checks 12/09/2018 Z95.0 Presence of cardiac pacemaker Mulugeta Hill, DO FAC 12/09/2018 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 block, complete Mulugeta Hill, DO FAC 12/09/2018 I48.0 Paroxysmal atrial fibrillation Mulugeta Hill, DO FAC 12/09/2018 I48.92 Unspecified atrial flutter Mulugeta Hill, DO [facility] 12/09/2018 I50.32 Chronic diastolic (congestive) heart Mulugeta Hill, DO [facility] failure 12/09/2018 N18.9 Chronic kidney disease, unspecified Mulugeta Hill, DO FACC 12/09/2018 I25.2 Old myocardial infarction Mulugeta Hill, DO FACC 12/09/2018 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, DO [facility] coronary artery with 12/09/2018 Z95.2 Presence of prosthetic heart valve Mulugeta Hill, DO FACC 09/17/2018 Z95.0 Presence of cardiac pacemaker Mulugeta Hill, DO FAC 09/17/2018 Z95.0 Presence of cardiac pacemaker Remote Device Checks 09/17/2018 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 block, complete Mulugeta Hill, DO FACC 09/17/2018 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 block, complete Remote Device Checks Plan of Treatment Future Appointment(s):03/23/2019 11:30 am - Ica Pacer Schedule at [facility]03/23/2019 11:00 am - Traveling ECHO 1 at [facility]04/04/2019 2:00 pm - Mulugeta Hill DO FACC at [facility]08/2018 - Mulugeta Hill, DO FACCI48.92 Unspecified atrial flutterNew Orders: Cardioversion, Scheduled: 03/14/19Comments:Take 2 amiodarone (400 mg) tonight, twice daily Thursday, twice daily Thursday then take 2 tablets (400 mg) once daily for 1 week. If you are still in atrial flutter on Wednesday 03/14 we will have you do a cardioversion. You can start taking an extra 2 bumex (3 bumex total) as needed to keep your weight down and fluid off until the cardioversion.Follow up:Please give patient a copy of his lab work Please schedule cardioversion Thursday03/14/2019 [facility] [place] [facility] [place] Paroxysmal atrial fvdclikirzdeG18.0 Presence of cardiac ostyrkjryM39.32 Chronic diastolic ( congestive) heart hhlpjljD58.9 Chronic kidney disease, iqcjfouzfizI91.2 Old myocardial qvptdexsdlS13.10 Atherosclerotic heart disease of [place] coronary artery withZ95.2 Presence of prosthetic heart mgqbgE76.31 Abnormal electrocardiogram [ECG] [EKG] Functional Status Description No Information Available Mental Status Description No Information Available Referrals Refer to Reason for Referral Status Appt Date Beltran Umanzor MD atypical atrial flutter management [address] [place] [address] [phone]
--- OUTSIDE RECORDS SUMMARY | 2019-04-21 19:09 | XMS REPORT | Continuity of Care Document ---
:1935 External Reference #:[id number] Author Name Mulugeta Hill DO FACC (transmitted by agent of provider Meena Saenz) Address [address] [place] [address] Care Team Providers Name Role Phone Arley Harp MD - Internal Care Team Information Wire Winder Medicine Problems Active Problems Provider Date Paroxysmal [...] Hill, 03/01/2019 81mg Tablets day DO FACC DR Adamsodarone HCL Take 2 tablets 90tabs Mulugeta Hill, 08/30/2018 200mg (400 mg) once DO FACC Tablets daily Eliquis 1 tablet by mouth 60tabs I48.0 Mulugeta Hill, 11/23/2017 2.5mg Tablets twice a day. DO FACC Januvia Take 2 TABLETs By Rasheed Vera MD 11/12/2017 50mg Tablets Mouth Every Day Atorvastatin Calcium 1 by mouth every 90tabs E11.9 Mulugeta Hill, 2016 day DO FAC 80mg Tablets Nitrostat one sl q5min up 25tabs Mulugeta AshleyNavjot Hill, 07/30/2016 0.4mg Tablets to 3 doses as DO FAC Sub needed Multi For Him 50+ 1 by mouth every Unknown day Tablets Calcium + D3 1 by mouth every 90tabs Unknown day [id number] Tablets Lantus Solostar 10 units sub-q Unknown once daily 100Unit/ML Solution Pen-Inject Bumex take 1 tablet 120tabs Mulugeta AshleyNavjot Hill, 1mg Tablets once a day and an DO [facility] extra 2 tablets (3 tablets total) for weight gain or shortness of breath Vyndaqel take 4 caps at hs Unknown 20mg Capsules Losartan Potassium 1/2 tab by mouth Unknown 25mg every day Tablets History Medications Aspirin 81 Take 1 by mouth 90tabs Z95.0 Mulugeta Hill, 12/09/2018 - 81mg every day DO [facility] 03/01/[address] Losartan 25 mg tab Take Mulugeta Hill, 09/06/2018 - 1/2 tab po qd DO [facility] 03/01/2019 Medications Administered in Office Medication SIG Qnty Indications Ordering Provider Date Inj, Regadenoson, 0.1 MG Mulugeta Hill, DO [facility] 07/30/2016 Injection Aminophylline Mulugeta Hill, DO [facility] 07/30/2016 Injection Technetium TC 99M Mulugeta Hill, DO [facility] 07/30/2016 Tetrofosmin, Per Unit Dose Up To 40 Millicuries Injection Inj, Regadenoson, 0.1 MG Mulugeta Hill, DO [facility] 10/02/2015 Injection Inj, Regadenoson, 0.1 MG Leticia Woodruff M.D. 10/02/2015 Injection Technetium TC 99M Mulugeta Hill, DO [facility] 10/02/2015 Tetrofosmin, Per Unit Dose Up To [...] Result H/L Range Note Comp Metabolic 03/02/2019 [facility] Sodium 135 mmol/L Normal 135-[address] [place] [address] [phone] Potassium 4.2 mmol/L Normal 3.5-5.0 Chloride 94 [...] Egfr 29.7 >60 1 Laboratory test 03/02/2019 [facility] Magnesium 2.2 mg/dL Normal 1.9-2.[address] [place] [address] [phone] CBC Auto Diff 03/02/2019 [facility] White Blood 8.2 Normal 3.5 -10.[address] Count 10^3/[place] [address] [phone] Red Blood Count 4.11 10^6/uL Low 4.18-5.48 [...] Blood Cells % 0.0 Laboratory test 03/02/2019 [facility] TSH (Thyroid 8.20 High 0.34-5.[address] Stim Horm) mcIU/[place] [address] [phone] Free T4 (Free Thyroxine) 0.88 ng/dL Normal 0.61-1.12 Laboratory test 11/30/2018 [facility] Blood Urea 67 mg/dL High 6-[address] [place] [address] [phone] Creatinine 11/30/2018 [facility] Creatinine 2.15 mg/dL High 0.67-1.[address] [place] [address] [phone] Egfr Non- 29.6 >60 Egfr 35.9 >60 2 Laboratory test 11/30/2018 [facility] C Reactive 1.21 mg/L Normal <8.[address] [place] [address] [phone] Erythrocyte Sed Rate 11 mm/Hr Normal 0-19 Basic Metabolic 09/08/2018 [facility] Sodium 136 mmol/L Normal 135-[address] [place] [address] [phone] Potassium 4.3 mmol/L Normal 3.5-5.0 Chloride 95 mmol/L Low 101-111 Co2 Carbon Dioxide 32 mmol/L Normal 22-32 Anion Gap 9 mmol/L Normal 2-11 Glucose 211 mg/dL High 70-100 Blood Urea Nitrogen 73 mg/dL High 6-24 Creatinine 2.09 mg/dL High 0.67-1.17 BUN/Creatinine Ratio 34.9 High 8-20 Calcium 9.6 mg/dL Normal 8.6-10.3 Egfr Non- 30.6 >60 Egfr 37.1 >60 3 1 Because ethnic data is not always [...] 15-29 5 Kidney failure <15 (or dialysis) 3 Because ethnic data is not always readily [...] (or dialysis) Procedures Date Code Description Status 03/02/2019 29903 EKG Tracing & Interpretation Completed 12/28/2018 44010 Pace Maker Eval W/Iterative Adjment Dual Lead Completed 12/28/2018 72819 Pace Maker Eval W/Iterative Adjment Dual Lead Completed 12/23/2018 34096 Icd Eval Sing,Dual,Multi Lead Remote Recpt Transm Tech Rev Completed Tech S 12/23/2018 96036 Icd Eval Sing,Dual,Multi Lead Remote Recpt Transm Tech Rev Completed Tech S 12/23/2018 18208 Pacemaker Check Remote Up To 90Days Single,Dual,Multiple Completed Lead 12/23/2018 34208 Pacemaker Check Remote Up To 90Days Single,Dual,Multiple Completed Lead 09/17/2018 01874 Icd Eval Sing,Dual,Multi Lead Remote Recpt Transm Tech Rev Completed Tech S 09/17/2018 74656 Icd Eval Sing,Dual,Multi Lead Remote Recpt Transm Tech Rev Completed Tech S 09/17/2018 74698 Pacemaker Check Remote Up To 90Days Single,Dual,Multiple Completed Lead 09/17/2018 67525 Pacemaker Check Remote Up To 90Days Single,Dual,Multiple Completed Lead 09/08/2018 79753 Icd Eval Sing,Dual,Multi Lead Remote Recpt Transm Tech Rev Completed Tech S 09/08/2018 64867 Pacemaker Check Remote Up To 90Days Single,Dual,Multiple Completed Lead 09/06/2018 16824 EKG Tracing & Interpretation Completed Medical Devices Description No Information Available Encounters Type Date Location Provider Dx Diagnosis Office Visit 03/02/2019 [facility] Mulugeta S. 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 with 03/04/2019 Z95.2 Presence of prosthetic heart valve Mulugeta Hill, DO FACC 03/04/2019 I50.33 Acute on chronic diastolic (congestive) Mulugeta Hill, DO FACC heart failure 03/02/2019 I48.92 Unspecified atrial flutter Mulugeta Hill, [...] FACC 03/02/2019 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, 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 with [...] Paroxysmal atrial fibrillation Mulugeta Hill, DO FACC 12/23/2018 I48.0 Paroxysmal atrial fibrillation Remote Device Checks 12/09/2018 Z95.0 Presence of cardiac pacemaker Mulugeta Hill, DO FACC 12/09/2018 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 block, complete Mulugeta Hill, DO FACC 12/09/2018 I48.0 Paroxysmal atrial fibrillation Mulugeta Hill, DO FACC 12/09/2018 I48.92 Unspecified atrial flutter Mulugeta Hill, DO FACC 12/09/2018 I50.32 Chronic diastolic (congestive) heart Mulugeta Hill, DO FACC failure 12/09/2018 N18.9 Chronic kidney disease, unspecified Mulugeta Hill, DO FACC 12/09/2018 I25.2 Old myocardial infarction Mulugeta Hill, DO FACC 12/09/2018 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, 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 with 12/09/2018 Z95.2 Presence of prosthetic heart valve Mulugeta Hill, DO FAC 09/17/2018 Z95.0 Presence of cardiac pacemaker Mulugeta Hill, DO FAC 09/17/2018 Z95.0 Presence of cardiac pacemaker Remote Device Checks 09/17/2018 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 block, complete Mulugeta Hill, DO FACC 09/17/2018 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 block, complete Remote Device Checks 09/09/2018 I48.0 Paroxysmal atrial fibrillation Mulugeta Hill, DO FAC 09/09/2018 I48.92 Unspecified atrial flutter Mulugeta Hill, DO FAC 09/09/2018 I50.32 Chronic diastolic (congestive) heart Mulugeta Hill, DO [facility] failure 09/09/2018 N18.9 Chronic kidney disease, unspecified Mulugeta Hill, DO [facility] 09/09/2018 I25.2 Old myocardial infarction Mulugeta Hill, DO [facility] 09/09/2018 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, DO [facility] coronary artery with 09/09/2018 K92.2 Gastrointestinal hemorrhage, unspecified Mulugeta Hill, DO [facility] 09/09/2018 Z95.2 Presence of prosthetic heart valve Mulugeta Hill, DO [facility] 09/09/2018 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 block, complete Mulugeta Hill, DO FAC 09/09/2018 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, unspecified Mulugeta Hill, DO [facility] 09/09/2018 Z95.0 Presence of cardiac pacemaker Mulugeta Hill, DO FAC 09/09/2018 E78.5 Hyperlipidemia, unspecified Mulugeta Hill, DO FAC 09/09/2018 I73.9 Peripheral vascular disease, unspecified Mulugeta Hill, DO FAC 09/08/2018 I48.0 Paroxysmal atrial fibrillation Mulugeta Hill, DO FAC 09/08/2018 I48.0 Paroxysmal atrial fibrillation Remote Device Checks 09/08/2018 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 block, complete Mulugeta Hill, DO FAC 09/08/2018 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 block, complete Remote Device Checks 09/08/2018 Z95.0 Presence of cardiac pacemaker Mulugeta Hill, DO FAC 09/08/2018 Z95.0 Presence of cardiac pacemaker Remote Device Checks 09/06/2018 I48.0 Paroxysmal atrial fibrillation Mulugeta SNavjot Hill, DO FACC 09/06/2018 I48.92 Unspecified atrial flutter Mulugeta SNavjot Hill, DO FACC 09/06/2018 I50.32 Chronic diastolic (congestive) heart Mulugeta Hill DO FACC failure 09/06/2018 N18.9 Chronic kidney disease, unspecified Mulugeta Hill, DO FACC 09/06/2018 I25.2 Old myocardial infarction Mulugeta SNavjot Hill, DO FACC 09/06/2018 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 Mulugetadanie Yaono, 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 with 09/06/2018 K92.2 Gastrointestinal hemorrhage, unspecified Mulugeta Hill, DO FACC 09/06/2018 Z95.2 Presence of prosthetic heart valve Mulugeta Hill, DO FACC 09/06/2018 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 block, complete Mulugeta Hill, DO FAC 09/06/2018 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, unspecified Mulugeta Hill, DO [facility] Plan of Treatment Future Appointment(s):03/14/2019 11:00 am - Mulugeta Hill DO FACC at [facility] [place] 11:30 am - Ica Pacer Schedule at [facility]03/23/2019 11:00 am - Traveling ECHO 1 at [facility]04/04/2019 2:00 pm - Mulugeta Hill DO FACC at [facility]08/2018 - [facility] Unspecified atrial flutterNew Orders: Cardioversion, Ordered: 03/04/19Comments:Take 2 amiodarone (400 mg) tonight, twice daily [...] Please schedule cardioversion Thursday03/14/2019 with me at CMCI48.0 Paroxysmal atrial fokihpsopamcR85.0 Presence of cardiac zgafvfizwJ23.32 Chronic diastolic ( congestive) heart zvernetK61.9 Chronic kidney disease, yaehqrwbvkqF95.2 Old myocardial rjdyryqngoQ52.10 Atherosclerotic heart disease of robinson coronary artery withZ95.2 Presence of prosthetic heart gaykgH64.33 Acute on chronic diastolic (congestive) heart failure Functional Status Description No Information Available Mental Status Description No Information Available Referrals Description No Information Available
--- OUTSIDE RECORDS SUMMARY | 2019-04-21 19:09 | XMS REPORT | Continuity of Care Document ---
:1935 External Reference #:[id number] Author Name Mulugeta Hill DO FACC (transmitted by agent of provider Meena Saenz) Address [address] [place] [address] Care Team Providers Name Role Phone Arley Harp MD - Internal Care Team Information Uniformer [phone] Medicine Problems Active Problems Provider Date Paroxysmal atrial fibrillation Mulugeta Hill DO FACC Onset: 02/12/2016 Social History Type Date Description Comments Sex Unknown Tobacco Use Start: Unknown Never Smoked Cigarettes Smoking Status Reviewed: 03/02/19 Never Smoked Cigarettes ETOH Use Denies alcohol [...] Medications Active Medications SIG Qnty Indications Ordering Provider Date Aspirin 81 1 by mouth every 30tabs Mulugeta Hill, 03/01/2019 81mg Tablets day DO FACC DR Adamsodarone HCL Take 2 tablets 90tabs Mulugeta Hill, 08/30/2018 200mg (400 mg) twice DO FACC Tablets daily for 5 days. Eliquis 1 tablet by 60tabs I48.0 Mulugeta Hill, 11/23/2017 2.5mg Tablets mouth twice a DO FACC day. Januvia Take 2 TABLETs Rasheed Vera MD 11/12/2017 50mg Tablets By Mouth Every Day Atorvastatin Calcium 1 by mouth every 90tabs E11.9 Mulugeta Hill, 2016 day DO FACC 80mg Tablets Nitrostat one sl q5min up 25tabs Mulugeta Hill, 07/30/2016 0.4mg Tablets to 3 doses as DO FACC Sub needed Multi For Him 50+ 1 by mouth every Unknown day Tablets Calcium + D3 1 by mouth every 90tabs Unknown day [id number] Tablets Lantus Solostar 10 units sub-q Unknown once daily 100Unit/ML Solution Pen-Inject Bumex take 1 tablet 120tabs Mulugeta Hill, 1mg Tablets once a day and 2 DO FACC per day if wt goes above 175# Vyndaqel take 4 caps at Unknown 20mg Capsules hs Losartan Potassium 1/2 tab by mouth Unknown 25mg every day Tablets History Medications Aspirin 81 Take 1 by mouth 90tabs Z95.0 Mulugeta Hill, 12/09/2018 - 81mg every day DO FAC 03/01/[address] Losartan 25 mg tab Take Mulugeta Hill, 09/06/2018 - 1/2 tab po qd DO FAC 03/01/2019 Medications Administered in Office Medication SIG Qnty Indications Ordering Provider Date Inj, Regadenoson, 0.1 MG Mulugeta Hill, DO [facility] 07/30/2016 Injection Aminophylline Mulugeta Hill, DO [facility] 07/30/2016 Injection Technetium TC 99M Mulugeta Hill, DO [facility] 07/30/2016 Tetrofosmin, Per Unit Dose Up To 40 Millicuries Injection Inj, Regadenoson, 0.1 MG Mulugeta Hill, DO [facility] 10/02/2015 Injection Inj, Regadenoson, 0.1 MG Leticia Woodruff M.D. 10/02/2015 Injection Technetium TC 99M Mulugeta Hill, DO [facility] 10/02/2015 Tetrofosmin, Per Unit Dose Up To 40 Millicuries Injection Depomedrol 80MG Rene Estrada M.D. 06/11/2010 Injection Immunizations Description No Information Available Vital Signs Date Vital Result Comment 03/02/2019 1:06pm Height 69 inches 5'9" Weight 184.00 lb with shoes Heart Rate 80 /min irreg BP Systolic Sitting 100 mmHg lue reg BP Diastolic Sitting 54 mmHg lue reg BP Systolic Standing 104 mmHg lue reg BP Diastolic Standing 60 mmHg lue reg Respiratory Rate 16 /min BMI (Body Mass Index) 27.2 kg/m2 Ejection Fraction 55% echo. 04/19/18 12/09/2018 10:00am Height 69 inches 5'9" Weight 173.00 lb Heart Rate 60 /min BP Systolic Sitting 116 mmHg Lue reg cuff BP Diastolic Sitting 54 mmHg Lue reg cuff BP Systolic Standing 110 mmHg BP Diastolic Standing 60 mmHg Respiratory Rate 14 /min BMI (Body Mass Index) 25.5 kg/m2 Ejection Fraction 55% 04/19/18 Results Test Date Facility Test Result H/L Range Note Laboratory test 03/02/2019 [facility] Magnesium <pending> [address] [place] [address] [phone] Laboratory test 03/02/2019 [facility] TSH (Thyroid <pending> [address] Stim Horm) [place] [address] [phone] Free T4 (Free Thyroxine) <pending> Laboratory test 11/30/2018 [facility] Blood Urea 67 mg/dL High 6-[address] [place] [address] [phone] Creatinine 11/30/2018 [facility] Creatinine 2.15 mg/dL High 0.67-1.[address] [place] [address] [phone] Egfr Non- 29.6 >60 Egfr 35.9 >60 1 Laboratory test 11/30/2018 [facility] C Reactive 1.21 mg/L Normal <8.[address] [place] [address] [phone] Erythrocyte Sed Rate 11 mm/Hr Normal 0-19 Basic Metabolic 09/08/2018 [facility] Sodium 136 mmol/L Normal 135-[address] [place] [address] [phone] Potassium 4.3 mmol/L Normal 3.5-5.0 Chloride 95 mmol/L Low 101-111 Co2 Carbon Dioxide 32 mmol/L Normal 22-32 Anion Gap 9 mmol/L Normal 2-11 Glucose 211 mg/dL High 70-100 Blood Urea Nitrogen 73 mg/dL High 6-24 Creatinine 2.09 mg/dL High 0.67-1.17 BUN/Creatinine Ratio 34.9 High 8-20 Calcium 9.6 mg/dL Normal 8.6-10.3 Egfr Non- 30.6 >60 Egfr 37.1 >60 2 1 Because ethnic data is not always [...] dialysis) Procedures Date Code Description Status 03/02/2019 50924 EKG Tracing & Interpretation Completed 12/28/2018 21630 Pace Maker Nahomi Dominguez/Iterative Adjment Dual Lead Completed 12/28/2018 85245 Pace Maker Eval W/Iterative Adjment Dual Lead Completed 12/23/2018 32801 Icd Eval Sing,Dual,Multi Lead Remote Recpt Transm Tech Rev Completed Tech S 12/23/2018 23031 Icd Eval Sing,Dual,Multi Lead Remote Recpt Transm Tech Rev Completed Tech S 12/23/2018 52168 Pacemaker Check Remote Up To 90Days Single,Dual,Multiple Completed Lead 12/23/2018 47066 Pacemaker Check Remote Up To 90Days Single,Dual,Multiple Completed Lead 09/17/2018 89432 Icd Eval Sing,Dual,Multi Lead Remote Recpt Transm Tech Rev Completed Tech S 09/17/2018 11036 Icd Eval Sing,Dual,Multi Lead Remote Recpt Transm Tech Rev Completed Tech S 09/17/2018 77895 Pacemaker Check Remote Up To 90Days Single,Dual,Multiple Completed Lead 09/17/2018 04627 Pacemaker Check Remote Up To 90Days Single,Dual,Multiple Completed Lead 09/08/2018 37486 Icd Eval Sing,Dual,Multi Lead Remote Recpt Transm Tech Rev Completed Tech S 09/08/2018 10215 Pacemaker Check Remote Up To 90Days Single,Dual,Multiple Completed Lead 09/06/2018 30196 EKG Tracing & Interpretation Completed Medical Devices Description No Information Available Encounters Type Date Location Provider Dx Diagnosis Office Visit 12/09/2018 [facility] Mulugeta Hill, Z95.0 Presence of 10:20a Of [facility] DO FACC cardiac pacemaker 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 block, complete I48.0 Paroxysmal atrial fibrillation I48.92 Unspecified atrial flutter I50.32 Chronic diastolic (congestive) heart failure N18.9 Chronic kidney disease, unspecified 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 Office Visit 09/09/2018 2:40p [facility] Mulugeta Bender I48.0 Paroxysmal atrial 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, unspecified Assessments Date Code Description Provider 03/02/2019 I48.92 Unspecified atrial flutter Mulugeta Hill, DO FACC 03/02/2019 I48.0 Paroxysmal atrial fibrillation Mulugeta SNavjot Hill, DO FACC 03/02/2019 Z95.0 Presence of cardiac pacemaker Mulugeta SNavjot Yaono, DO FACC 03/02/2019 I50.32 Chronic diastolic (congestive) heart Mulugeta SNavjot Yaono, DO FACC failure 03/02/2019 N18.9 Chronic kidney disease, unspecified Mulugeta SNavjot Yaono, DO FACC 03/02/2019 I25.2 Old myocardial infarction Mulugeta Hill, DO FACC 03/02/2019 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 Hill, DO FACC 03/02/2019 I50.33 Acute on chronic diastolic (congestive) Mulugeta S. Hill, DO FACC heart failure 03/02/2019 I44.7 Left bundle-branch block, unspecified Mulugeta S. Hill, DO FACC 03/02/2019 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 block, complete Mulugeta S. 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 Hill, DO FACC 12/28/2018 Z95.0 Presence of cardiac pacemaker Mulugeta S. Hill, DO FACC 12/28/2018 Z95.0 Presence of [...] FACC 12/09/2018 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 Hill, DO FAC coronary artery with 12/09/2018 Z95.2 Presence of prosthetic heart valve Mulugeta Hill, DO FACC 09/17/2018 Z95.0 Presence of cardiac pacemaker Mulugeta Hill, DO FACC 09/17/2018 Z95.0 Presence of cardiac pacemaker Remote Device Checks 09/17/2018 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 block, complete Mulugeta Hill, DO FACC 09/17/2018 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 block, complete Remote Device Checks 09/09/2018 I48.0 Paroxysmal atrial fibrillation Mulugeta Hill, DO FACC 09/09/2018 I48.92 Unspecified atrial flutter Mulugeta Hill, DO FACC 09/09/2018 I50.32 Chronic diastolic (congestive) heart Mulugeta Hill, DO FACC failure 09/09/2018 N18.9 Chronic kidney disease, unspecified Mulugeta Hill, DO FACC 09/09/2018 I25.2 Old myocardial infarction Mulugeta Hill, DO FACC 09/09/2018 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 Hill, 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 with 09/09/2018 K92.2 Gastrointestinal hemorrhage, unspecified Mulugeta Hill, DO FACC 09/09/2018 Z95.2 Presence of prosthetic heart valve Mulugeta Hill, DO FACC 09/09/2018 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 block, complete Mulugeta Hill, DO FACC 09/09/2018 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, unspecified Mulugeta Hill, DO FACC 09/09/2018 Z95.0 Presence of cardiac pacemaker Mulugeta Hill, DO FACC 09/09/2018 E78.5 Hyperlipidemia, unspecified Mulugeta Hill, DO FACC 09/09/2018 I73.9 Peripheral vascular disease, unspecified Mulugeta Hill, DO FACC 09/08/2018 I48.0 Paroxysmal atrial fibrillation Mulugeta Hill, DO FACC 09/08/2018 I48.0 Paroxysmal atrial fibrillation Remote Device Checks 09/08/2018 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 block, complete Mulugeta Hill, DO FACC 09/08/2018 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 block, complete Remote Device Checks 09/08/2018 Z95.0 Presence of cardiac pacemaker Mulugeta Hill, DO FACC 09/08/2018 Z95.0 Presence of cardiac pacemaker Remote Device Checks 09/06/2018 I48.0 Paroxysmal atrial fibrillation Mulugeta Hill, DO FACC 09/06/2018 I48.92 Unspecified atrial flutter Mulugeta Hill, DO FACC 09/06/2018 I50.32 Chronic diastolic (congestive) heart Mulugeta Hill, DO FACC failure 09/06/2018 N18.9 Chronic kidney disease, unspecified Mulugeta Hill, DO FACC 09/06/2018 I25.2 Old myocardial infarction Mulugeta Hill, DO FACC 09/06/2018 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 Hill, 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 with 09/06/2018 K92.2 Gastrointestinal hemorrhage, unspecified Mulugeta Hill, DO FACC 09/06/2018 Z95.2 Presence of prosthetic heart valve Mulugeta Hill, DO FACC 09/06/2018 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 block, complete Mulugeta Hill, DO FACC 09/06/2018 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 Start now and then take another 400 mg this evening (900 mg total today)Follow up: Schedule follow up Sunday 03/04 at 4:20 PM my time with an EKGI48.0 Paroxysmal atrial wzthgnldsarbQ48.0 Presence of cardiac xrldkpceiA79.32 Chronic diastolic ( congestive) heart spiywnoV11.9 Chronic kidney disease, pvrbffzrcrxB31.2 Old myocardial dsdqmdoayvD59.10 Atherosclerotic heart disease of [place] coronary artery withZ95.2 Presence of prosthetic heart sladkT12.33 Acute on chronic diastolic (congestive) heart mlxhowfK30.7 Left bundle-branch block, zvtmkmqycuqV71.2 Atrioventricular block, maxisjihI71.9 Amyloidosis, unspecified Functional Status Description No Information Available Mental Status Description No Information Available Referrals Description No Information Available
--- OUTSIDE RECORDS SUMMARY | 2019-04-21 19:09 | XMS REPORT | Continuity of Care Document ---
:1935 External Reference #:[id number] Author Name Covert, Parisa Care Team Providers Name Role Phone Arley Harp MD - Internal Care Team Information [employer] Medicine Problems Active Problems Provider Date Paroxysmal atrial fibrillation Mulugeta Hill, DO FACC Onset: 02/12/2016 Social History Type Date Description Comments Sex Unknown Tobacco Use Start: Unknown Never Smoked Cigarettes Smoking Status Reviewed: 04/04/19 Never Smoked Cigarettes ETOH Use Denies alcohol [...] Medications SIG Qnty Indications Ordering Provider Date Bumex take 2 tablets 180tabs Mulugeta Hill, 04/11/2019 1mg Tablets (2 mg) by mouth DO FACC daily Aspirin 81 1 by mouth every 30tabs Mulugeta Hill, 03/01/2019 81mg Tablets day DO FACC DR Morales 1 tablet by 60tabs I48.0 Mulugeta Hill, 11/23/2017 2.5mg Tablets mouth twice a DO FACC day. Atorvastatin Calcium 1 by mouth every 90tabs E11.9 Mulugeta Hill, 2016 day DO FACC 80mg Tablets Nitrostat one sl q5min up 25tabs Mulugeta Hill, 07/30/2016 0.4mg Tablets to 3 doses as DO [facility] Sub needed Multi For Him 50+ 1 by mouth every Unknown day Tablets Calcium + D3 1 by mouth every 90tabs Unknown day 012-130id-Pqof Tablets Lantus Solostar 12 units sub-q Unknown once daily 100Unit/ML Solution Pen-Inject Vyndaqel take 4 caps at Unknown 20mg Capsules hs Losartan Potassium 1/2 tab by mouth Unknown 25mg every day Tablets Amiodarone HCL 1 by mouth every 90tabs Mulugeta Hill, 200mg day DO [facility] Tablets Januvia 1 by mouth every Unknown 100mg Tablets day History Medications Bumex Mulugeta Hill, 04/11/2019 - 2mg Tablets DO [facility] 04/11/2019 Torsemide take 2 by mouth 90tabs Mulugeta Hill, 03/24/2019 - 20mg daily DO [facility] 04/11/2019 Tablets Aspirin 81 Take 1 by mouth 90tabs Z95.0 Mulugeta Hill, 12/09/2018 - 81mg every day DO [facility] 03/01/[address] Medications Administered in Office Medication SIG Qnty Indications Ordering Provider Date Inj, Regadenoson, 0.1 MG Mulugeta Hill, DO [facility] 07/30/2016 Injection Aminophylline Mulugeta Hill, DO [facility] 07/30/2016 Injection Technetium TC 99M Mulugeta Hill, DO [facility] 07/30/2016 Tetrofosmin, Per Unit Dose Up To 40 Millicuries Injection Inj, Regadenoson, 0.1 MG Mulugeta Hill, DO [facility] 10/02/2015 Injection Inj, Regadenoson, 0.1 MG Leticia Woodruff M.D. 10/02/2015 Injection Technetium TC 99M Mulugeta Hill, DO [facility] 10/02/2015 Tetrofosmin, Per Unit Dose Up To 40 Millicuries Injection Depomedrol 80MG Rene Estrada M.D. 06/11/2010 Injection Immunizations Description No Information Available Vital Signs Date Vital Result Comment 04/04/2019 1:45pm Height 69 inches 5'9" Weight 182.00 lb with shoes BP Systolic Sitting 120 mmHg Lue reg cuff BP Diastolic Sitting 60 mmHg Lue reg cuff BP Systolic Standing 120 mmHg Lue reg cuff BP Diastolic Standing 66 mmHg Lue reg cuff BMI (Body Mass Index) 26.9 kg/m2 Ejection Fraction 50-55% date 03/23/19 ECHO 03/04/2019 3:54pm Height 69 inches 5'9" Weight 185.00 lb with shoes BP Systolic Sitting 108 mmHg lue reg cuff BP Diastolic Sitting 54 mmHg lue reg cuff BP Systolic Standing 110 mmHg lue reg cuff BP Diastolic Standing 60 mmHg lue reg cuff Respiratory Rate 16 /min BMI (Body Mass Index) 27.3 kg/m2 Ejection Fraction 55% echo 04/19/18 Results Test Acquired Date Facility Test Result H/L Range Note Basic Metabolic 04/02/2019 [facility] Sodium 138 mmol/L Normal 135-145 Panel [address] [place] [address] [phone] Potassium 4.1 mmol/L Normal 3.5-5.0 Chloride 94 mmol/L Low 101-111 Co2 Carbon Dioxide 34 mmol/L High 22-32 Anion Gap 10 mmol/L Normal 2-11 Glucose 203 mg/dL High 70-100 Blood Urea Nitrogen 78 mg/dL High 6-24 Creatinine 2.58 mg/dL High 0.67-1.17 BUN/Creatinine Ratio 30.2 High 8-20 Calcium 9.9 mg/dL Normal 8.6-10.3 Egfr Non- 24.0 >60 Egfr 29.1 >60 1 Basic Metabolic 03/22/2019 [facility] Sodium 133 mmol/L Low 135-[address] [place] [address] [phone] Potassium 4.0 mmol/L Normal 3.5-5.0 Chloride 92 mmol/L Low 101-111 Co2 Carbon Dioxide 31 mmol/L Normal 22-32 Anion Gap 10 mmol/L Normal 2-11 Glucose 161 mg/dL High 70-100 Blood Urea Nitrogen 84 mg/dL High 6-24 Creatinine 2.86 mg/dL High 0.67-1.17 BUN/Creatinine Ratio 29.4 High 8-20 Calcium 9.5 mg/dL Normal 8.6-10.3 Egfr Non- 21.3 >60 Egfr 25.8 >60 2 Comp Metabolic 03/02/2019 [facility] Sodium 135 mmol/L Normal 135-[address] [place] [address] [phone] Potassium 4.2 mmol/L Normal 3.5-5.0 Chloride 94 [...] Egfr Non- 24.6 >60 Egfr 29.7 >60 3 Laboratory test 03/02/2019 [facility] Magnesium 2.2 mg/dL Normal 1.9-2.[address] [place] [address] [phone] CBC Auto Diff 03/02/2019 [facility] White Blood 8.2 Normal 3.5 -10.[address] Count 10^3/[place] [address] [phone] Red Blood Count 4.11 10^6/uL Low 4.18-5.48 [...] Blood Cells % 0.0 Laboratory test 03/02/2019 [facility] TSH (Thyroid 8.20 High 0.34-5.[address] Stim Horm) mcIU/[place] [address] [phone] Free T4 (Free Thyroxine) 0.88 ng/dL Normal 0.61-1.12 Laboratory test 11/30/2018 [facility] Blood Urea 67 mg/dL High 6-[address] [place] [address] [phone] Creatinine 11/30/2018 [facility] Creatinine 2.15 mg/dL High 0.67-1.[address] [place] [address] [phone] Egfr Non- 29.6 >60 Egfr 35.9 >60 4 Laboratory test 11/30/2018 [facility] C Reactive 1.21 mg/L Normal <8.[address] [place] [address] [phone] Erythrocyte Sed Rate 11 mm/Hr Normal 0-19 [...] 15-29 5 Kidney failure <15 (or dialysis) 4 Because ethnic data is not always readily [...] (or dialysis) Procedures Date Code Description Status 04/04/2019 23391 EKG Tracing & Interpretation Completed 03/28/2019 16749 Pace Maker Eval W/Iterative Adjment Dual Lead Completed 03/28/2019 21090 Pace Maker Eval W/Iterative Adjment Dual Lead Completed 03/23/2019 24563 ECHO Transthoracic, Real-Time 2D With Doppler And Color Completed Flow 03/23/2019 26439 ECHO Transthoracic, Real-Time 2D With Doppler And Color Completed Flow 03/14/2019 57072 Moderate Sedation Services; Same Phys Intl 15 Mins; PT >= Completed 5 Years 03/14/2019 44673 Cardioversion Completed 03/04/2019 67705 EKG Tracing & Interpretation Completed 03/02/2019 05774 EKG Tracing & Interpretation Completed 12/28/2018 90605 Pace Maker Eval W/Iterative Adjment Dual Lead Completed 12/28/2018 30941 Pace Maker Eval W/Iterative Adjment Dual Lead Completed 12/23/2018 24090 Icd Eval Sing,Dual,Multi Lead Remote Recpt Transm Tech Rev Completed Tech S 12/23/2018 68663 Icd Eval Sing,Dual,Multi Lead Remote Recpt Transm Tech Rev Completed Tech S 12/23/2018 30015 Pacemaker Check Remote Up To 90Days Single,Dual,Multiple Completed Lead 12/23/2018 59538 Pacemaker Check Remote Up To 90Days Single,Dual,Multiple Completed Lead Medical Devices Description No Information Available Encounters Type Date Location Provider Dx Diagnosis Office Visit 04/04/2019 [facility] Mulugeta Hill, I48.0 Paroxysmal atrial 2:00p [employer] DO FACC fibrillation I48.92 Unspecified atrial flutter Z95.0 Presence of cardiac pacemaker 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 block, 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 I50.32 Chronic diastolic (congestive) heart failure N18.9 Chronic kidney disease, unspecified I25.2 Old myocardial 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 I44.7 Left bundle-branch block, unspecified 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, unspecified K92.2 Gastrointestinal hemorrhage, unspecified E78.5 Hyperlipidemia, unspecified I73.9 Peripheral vascular disease, unspecified E03.9 Hypothyroidism, unspecified Office Visit 03/04/2019 4:20p [facility] Mulugeta SNavjot I48.92 Unspecified Of [employer] Hill, DO atrial flutter FACC I48.0 Paroxysmal atrial fibrillation Z95.0 Presence of cardiac pacemaker I50.32 Chronic diastolic (congestive) heart failure N18.9 Chronic kidney disease, unspecified I25.2 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 R94.31 Abnormal electrocardiogram [ECG] [EKG] Office Visit 03/02/2019 1:30p [facility] Mulugeta SNavjot I48.92 Unspecified Of [employer] Hill, DO atrial flutter FACC I48.0 Paroxysmal atrial fibrillation Z95.0 Presence of cardiac pacemaker I50.32 Chronic diastolic (congestive) heart failure N18.9 Chronic kidney disease, unspecified I25.2 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 Assessments Date Code Description Provider 04/04/2019 I48.0 Paroxysmal atrial fibrillation Mulugeta Hill, DO FACC 04/04/2019 I48.92 Unspecified atrial flutter Mulugeta Hill, DO FACC 04/04/2019 Z95.0 Presence of cardiac pacemaker Mulugeta Hill, DO [facility] 04/04/2019 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 block, complete Mulugeta Hill, DO [facility] 04/04/2019 Z95.2 Presence of prosthetic heart valve Mulugeta Hill, DO [facility] 04/04/2019 I50.32 Chronic diastolic (congestive) heart Mulugeta Hill, DO [facility] failure 04/04/2019 N18.9 Chronic kidney disease, unspecified Mulugeta Hill, DO [facility] 04/04/2019 I25.2 Old myocardial infarction Mulugeta Hill, DO [facility] 04/04/2019 I25.10 Atherosclerotic heart disease of [place] Mulugeta Hill, DO [facility] coronary artery with 04/04/2019 I44.7 Left bundle-branch block, unspecified Mulugeta Hill, DO [facility] 04/04/2019 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, unspecified Mulugeta Hill, DO [facility] 04/04/2019 K92.2 Gastrointestinal hemorrhage, unspecified Mulugeta Hill, DO [facility] 04/04/2019 E78.5 Hyperlipidemia, unspecified Mulugeta Hill, DO [facility] 04/04/2019 I73.9 Peripheral vascular disease, unspecified Mulugeta Hill, [facility] 04/04/2019 E03.9 Hypothyroidism, unspecified Mulugeta Hill, DO [facility] 03/28/2019 I48.91 Unspecified atrial fibrillation Ica Pacer Schedule 03/28/2019 I48.92 Unspecified atrial flutter Ica Pacer Schedule 03/28/2019 I48.0 Paroxysmal atrial fibrillation Ica Pacer Schedule 03/28/2019 Z95.0 Presence of cardiac pacemaker Mulugeta Hill, DO [facility] 03/28/2019 Z95.0 Presence of cardiac pacemaker Ica Pacer Schedule 03/28/2019 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 block, complete Ica Pacer Schedule 03/23/2019 I48.91 Unspecified atrial fibrillation Mulugeta Hill, DO [facility] 03/23/2019 I48.91 Unspecified atrial fibrillation Traveling ECHO 1 03/23/2019 Z95.2 Presence of prosthetic heart valve Mulugeta Hill, DO [facility] 03/23/2019 Z95.2 Presence of prosthetic heart valve Traveling ECHO 1 03/14/2019 I48.4 Atypical atrial flutter Mulugeta Hill, DO FACC 03/04/2019 I48.92 Unspecified atrial flutter Mulugeta Hill, [...] FACC 03/04/2019 I25.10 Atherosclerotic heart disease of [place] Mulugeta Hill, 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 with [...] FACC 03/02/2019 I25.10 Atherosclerotic heart disease of [place] Mulugeta Hill, 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 with [...] Schedule 12/23/2018 Z95.0 Presence of cardiac pacemaker Mulugetadanie Hill, DO FACC 12/23/2018 Z95.0 Presence of cardiac pacemaker Remote Device Checks 12/23/2018 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 block, complete Mulugeta Hill, DO FACC 12/23/2018 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 block, complete Remote Device Checks 12/23/2018 I48.0 Paroxysmal atrial fibrillation Mulugeta Hill, DO FAC 12/23/2018 I48.0 Paroxysmal atrial fibrillation Remote Device Checks 12/09/2018 Z95.0 Presence of cardiac pacemaker Mulugeta SNavjot Hill, DO FACC 12/09/2018 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 block, complete Mulugetadanie Yaono, DO FACC 12/09/2018 I48.0 Paroxysmal atrial fibrillation Mulugetadanie Yaono, DO FACC 12/09/2018 I48.92 Unspecified atrial flutter Mulugeta SNavjot Hill, DO FAC 12/09/2018 I50.32 Chronic diastolic (congestive) heart Mulugeta [place], DO FACC failure 12/09/2018 N18.9 Chronic kidney disease, unspecified Mulugeta [place] Hill, DO FACC 12/09/2018 I25.2 Old myocardial infarction Mulugeta Hill, DO FACC 12/09/2018 I25.10 Atherosclerotic heart disease of [place] Mulugetadanie Yaono, DO FAC coronary artery with 12/09/2018 Z95.2 Presence of prosthetic heart valve Mulugeta Hill DO [facility] Plan of Treatment Future Appointment(s):05/10/2019 10:20 am - Mulugeta Hill DO FACC at [facility]04/04/2019 - Mulugeta Hill DO FACCI48.0 Paroxysmal atrial fibrillationComments:Decrease torsemide from 3 tablets (60 mg) to 2 tablets (40 mg) once a day. Have lab work in 1 monthprior to follow up visit. Have a chest x-ray at any pointFollow up:f/u 1 month with lab work reupuZ13.92 Unspecified atrial mgkimzvE97.0 Presence of cardiac oywghmiyfO34.2 Atrioventricular block, nrekrmcrG20.2 Presence of prosthetic heart sunepU36.32 Chronic diastolic (congestive) heart mwkdsqjQ85.9 Chronic kidney disease, xrcfyrbugfcK06.2 Old myocardial bpmvrplzqaO12.10 Atherosclerotic heart disease of [place] coronary artery withI44.7 Left bundle-branch block, riwevwkmuviY98.9 Amyloidosis, yqkdsjjbxfkH01.2 Gastrointestinal hemorrhage, ttkdqnmmmalR27.5 Hyperlipidemia, ccuobsbplhmA63.9 Peripheral vascular disease, pafphptwbmeR94.9 Hypothyroidism, unspecified Functional Status Description No Information Available Mental Status Description No Information Available Referrals Refer to Reason for Referral Status Appt Date Beltran Umanzor MD atypical atrial flutter management [address] [place] [address] [phone]
--- OUTSIDE RECORDS SUMMARY | 2019-04-21 19:09 | XMS REPORT | Continuity of Care Document ---
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 Atorvastatin Calcium 1 by mouth every 90tabs E11.9 Mulugeta Hill, 2016 80mg day DO FACC Tablets Nitrostat one sl q5min up 25tabs Mulugeta Hill, 07/30/2016 0.4mg Tablets to 3 doses as DO [facility] Sub needed Multi For Him 50+ 1 by mouth every Unknown day Tablets Calcium + D3 1 by mouth every 90tabs Unknown day [id number] Tablets Lantus Solostar 12 units sub-q Unknown once daily 100Unit/ML Solution Pen-Inject Vyndaqel take 4 caps at Unknown 20mg Capsules hs Losartan Potassium 1/2 tab by mouth Unknown 25mg every day Tablets Amiodarone HCL 1 by mouth every Unknown 200mg day Tablets Januvia 1 by mouth every Unknown 100mg Tablets day History Medications Aspirin 81 Take 1 by mouth 90tabs Z95.0 Mulugeta Hill, 12/09/2018 - 81mg every day DO [facility] 03/01/[address] Medications Administered in Office Medication SIG Qnty Indications Ordering Provider Date Inj, Regadenoson, 0.1 MG Mulugeta Hill, DO [facility] 07/30/2016 Injection Aminophylline Mulugeta Hill, DO [facility] 07/30/2016 Injection Technetium TC 99M Mulugeta Hill, DO [facility] 07/30/2016 Tetrofosmin, Per Unit Dose Up To 40 Millicuries Injection Inj, Regadenoson, 0.1 MG Mulugeta Hill, DO [facility] 10/02/2015 Injection Inj, Regadenoson, 0.1 MG Leticia Woodruff M.D. 10/02/2015 Injection Technetium TC 99M Mulugeta Hill, DO [facility] 10/02/2015 Tetrofosmin, Per Unit Dose Up To [...] Result H/L Range Note Basic Metabolic 04/02/2019 [facility] Sodium 138 mmol/L Normal 135-[address] [place] [address] [phone] Potassium 4.1 mmol/L Normal 3.5-5.0 Chloride 94 mmol/L Low 101-111 Co2 Carbon Dioxide 34 mmol/L High 22-32 Anion Gap 10 mmol/L Normal 2-11 Glucose 203 mg/dL High 70-100 Blood Urea Nitrogen 78 mg/dL High 6-24 Creatinine 2.58 mg/dL High 0.67-1.17 BUN/Creatinine Ratio 30.2 High 8-20 Calcium 9.9 mg/dL Normal 8.6-10.3 Egfr Non- 24.0 >60 Egfr 29.1 >60 1 Basic Metabolic 03/22/2019 [facility] Sodium 133 mmol/L Low 135-[address] [place] [address] [phone] Potassium 4.0 mmol/L Normal 3.5-5.0 Chloride 92 mmol/L Low 101-111 Co2 Carbon Dioxide 31 mmol/L Normal 22-32 Anion Gap 10 mmol/L Normal 2-11 Glucose 161 mg/dL High 70-100 Blood Urea Nitrogen 84 mg/dL High 6-24 Creatinine 2.86 mg/dL High 0.67-1.17 BUN/Creatinine Ratio 29.4 High 8-20 Calcium 9.5 mg/dL Normal 8.6-10.3 Egfr Non- 21.3 >60 Egfr 25.8 >60 2 Comp Metabolic 03/02/2019 [facility] Sodium 135 mmol/L Normal 135-[address] [place] [address] [phone] Potassium 4.2 mmol/L Normal 3.5-5.0 Chloride 94 [...] Egfr 29.7 >60 3 Laboratory test 03/02/2019 [facility] Magnesium 2.2 mg/dL Normal 1.9-2.[address] [place] [address] [phone] CBC Auto Diff 03/02/2019 [facility] White Blood 8.2 Normal 3.5 -10.[address] Count 10^3/[place] [address] [phone] Red Blood Count 4.11 10^6/uL Low 4.18-5.48 [...] Blood Cells % 0.0 Laboratory test 03/02/2019 [facility] TSH (Thyroid 8.20 High 0.34-5.[address] Stim Horm) mcIU/[place] [address] [phone] Free T4 (Free Thyroxine) 0.88 ng/dL Normal 0.61-1.12 Laboratory test 11/30/2018 [facility] Blood Urea 67 mg/dL High 6-[address] [place] [address] [phone] Creatinine 11/30/2018 [facility] Creatinine 2.15 mg/dL High 0.67-1.[address] [place] [address] [phone] Egfr Non- 29.6 >60 Egfr 35.9 >60 4 Laboratory test 11/30/2018 [facility] C Reactive 1.21 mg/L Normal <8.[address] [place] [address] [phone] Erythrocyte Sed Rate 11 mm/Hr Normal 0-19 [...] dialysis) Procedures Date Code Description Status 04/04/2019 30139 EKG Tracing & Interpretation Completed 03/28/2019 83830 Pace Maker Eval W/Iterative Adjment Dual Lead Completed 03/28/2019 43027 Pace Maker Eval W/Iterative Adjment Dual Lead Completed 03/23/2019 00211 ECHO Transthoracic, Real-Time 2D With Doppler And Color Completed Flow 03/23/2019 19652 ECHO Transthoracic, Real-Time 2D With Doppler And Color Completed Flow 03/14/2019 93317 Moderate Sedation Services; Same Phys Intl 15 Mins; PT >= Completed 5 Years 03/14/2019 71646 Cardioversion Completed 03/04/2019 62430 EKG Tracing & Interpretation Completed 03/02/2019 99245 EKG Tracing & Interpretation Completed 12/28/2018 63791 Pace Maker Eval W/Iterative Adjment Dual Lead Completed 12/28/2018 32565 Pace Maker Eval W/Iterative Adjment Dual Lead Completed 12/23/2018 33634 Icd Eval Sing,Dual,Multi Lead Remote Recpt Transm Tech Rev Completed Tech S 12/23/2018 60131 Icd Eval Sing,Dual,Multi Lead Remote Recpt Transm Tech Rev Completed Tech S 12/23/2018 09615 Pacemaker Check Remote Up To 90Days Single,Dual,Multiple Completed Lead 12/23/2018 61785 Pacemaker Check Remote Up To 90Days Single,Dual,Multiple Completed Lead Medical Devices Description No Information Available Encounters Type Date Location Provider Dx Diagnosis Office Visit 03/04/2019 [facility] Mulugeta Hill I48.92 Unspecified atrial 4:20p Of Childbirth [employer] Infant Care Teacher DO FACC flutter I48.0 Paroxysmal atrial fibrillation Z95.0 Presence of cardiac pacemaker I50.32 Chronic diastolic (congestive) heart failure N18.9 Chronic kidney disease, unspecified 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 Z95.0 Presence of Of Raegan Hill, DO cardiac FACC pacemaker 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 block, complete I48.0 Paroxysmal atrial fibrillation I48.92 Unspecified atrial flutter I50.32 Chronic diastolic (congestive) heart failure N18.9 Chronic kidney disease, unspecified I25.2 Old myocardial infarction I25.10 Athscl heart disease of [place] [facility] pct[facility] Z95.2 Presence of prosthetic heart valve Assessments Date Code Description Provider 04/04/2019 I48.0 Paroxysmal atrial fibrillation Mulugeta Napoleon Hill, DO FACC 04/04/2019 I48.92 Unspecified atrial flutter Mulugeta Hill, DO FACC 04/04/2019 Z95.0 Presence of cardiac pacemaker Mulugeta Hill, DO FACC 04/04/2019 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 block, complete Mulugeta Hill, DO FACC 04/04/2019 Z95.2 Presence of prosthetic heart valve Mulugeta Hill, DO FACC 04/04/2019 I50.32 Chronic diastolic (congestive) heart Mulugeta Hill, DO FACC failure 04/04/2019 N18.9 Chronic kidney disease, unspecified Mulugeta SNavjot Yaono, DO FACC 04/04/2019 I25.2 Old myocardial infarction Mulugeta SNavjot Hill, DO FACC 04/04/2019 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 SNavjot Hill, 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 with 04/04/2019 I44.7 Left bundle-branch block, unspecified Mulugeta SNavjot Hill, DO FACC 04/04/2019 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, unspecified Mulugeta SNavjot Hill, DO FACC 04/04/2019 K92.2 Gastrointestinal hemorrhage, unspecified Mulugeta Hill, DO FACC 04/04/2019 E78.5 Hyperlipidemia, unspecified Mulugeta Hill, DO FACC 04/04/2019 I73.9 Peripheral vascular disease, unspecified Mulugeta Hill, DO FACC 04/04/2019 E03.9 Hypothyroidism, unspecified Mulugeta Hill, DO FACC 03/28/2019 I48.91 Unspecified atrial fibrillation Ica Pacer Schedule 03/28/2019 I48.92 Unspecified atrial flutter Ica Pacer Schedule 03/28/2019 I48.0 Paroxysmal atrial fibrillation Ica Pacer Schedule 03/28/2019 Z95.0 Presence of cardiac pacemaker Mulugeta Hill, DO FACC 03/28/2019 Z95.0 Presence of cardiac pacemaker Ica Pacer Schedule 03/28/2019 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 block, complete Ica Pacer Schedule 03/23/2019 I48.91 Unspecified atrial fibrillation Mulugeta Hill, DO FACC 03/23/2019 I48.91 Unspecified atrial fibrillation Traveling ECHO 1 03/23/2019 Z95.2 Presence of prosthetic heart valve Mulugeta Hill, DO FACC 03/23/2019 Z95.2 Presence of prosthetic heart valve [...] FACC 03/04/2019 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 Hill, DO FAC coronary artery with 03/04/2019 Z95.2 Presence of prosthetic heart valve Mulugeta Hill, DO FACC 03/04/2019 R94.31 Abnormal electrocardiogram [ECG] [EKG] Mulugeta Hill, DO FAC 03/02/2019 I48.92 Unspecified atrial flutter Mulugeta Hill, DO [facility] 03/02/2019 I48.0 Paroxysmal atrial fibrillation Mulugeta Hill, DO [facility] 03/02/2019 Z95.0 Presence of cardiac pacemaker Mulugeta Hill, DO [facility] 03/02/2019 I50.32 Chronic diastolic (congestive) heart Mulugeta Hill, DO [facility] failure 03/02/2019 N18.9 Chronic kidney disease, unspecified Mulugeta Hill, DO [facility] 03/02/2019 I25.2 Old myocardial infarction Mulugeta Hill, DO [facility] 03/02/2019 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 Hill, DO [facility] coronary artery with 03/02/2019 Z95.2 Presence of prosthetic heart valve Mulugeta Hill, DO [facility] 03/02/2019 I50.33 Acute on chronic diastolic (congestive) uMlugeta Hill, DO [facility] heart failure 03/02/2019 I44.7 Left bundle-branch block, unspecified Mulugeta Hill, DO [facility] 03/02/2019 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 block, complete Mulugeta Hill, DO [facility] 03/02/2019 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, unspecified Mulugeta Hill, DO [facility] 12/28/2018 Z95.0 Presence of cardiac pacemaker Mulugeta Hill, DO [facility] 12/28/2018 Z95.0 Presence of cardiac pacemaker Ica Pacer Schedule 12/23/2018 Z95.0 Presence of cardiac pacemaker Mulugeta Hill, DO [facility] 12/23/2018 Z95.0 Presence of cardiac pacemaker Remote Device Checks 12/23/2018 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 block, complete Mulugeta Hill, DO [facility] 12/23/2018 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 block, complete Remote Device Checks 12/23/2018 I48.0 Paroxysmal atrial fibrillation Mulugeta Hill, DO [facility] 12/23/2018 I48.0 Paroxysmal atrial fibrillation Remote Device Checks 12/09/2018 Z95.0 Presence of cardiac pacemaker Mulugeta Hill, DO FAC 12/09/2018 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 block, complete Mulugeta Hill, DO FACC 12/09/2018 I48.0 Paroxysmal atrial fibrillation Mulugeta Hill, DO FACC 12/09/2018 I48.92 Unspecified atrial flutter Mulugeta Hill, DO FACC 12/09/2018 I50.32 Chronic diastolic (congestive) heart Mulugetadanie Hill DO FAC failure 12/09/2018 N18.9 Chronic kidney disease, unspecified Mulugeta Hill, DO FACC 12/09/2018 I25.2 Old myocardial infarction Mulugeta Hill, DO FACC 12/09/2018 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 Hill, DO [facility] coronary artery with 12/09/2018 Z95.2 Presence of prosthetic heart valve Mulugeta SNavjot Hill, DO [facility] Plan of Treatment Future Appointment(s):05/10/2019 10:20 am - Mulugeta Hill DO [facility] at [facility]04/04/2019 - Mulugeta Yaojovon DO FACCI48.0 Paroxysmal atrial fibrillationComments:Decrease torsemide from 3 tablets (60 mg) to 2 tablets (40 mg) once a day. Have lab work in 1 monthprior to follow up visit. Have a chest x-ray at any pointFollow up:f/u 1 month with lab work yaeheE43.92 Unspecified atrial ewmmaubR75.0 Presence of cardiac giusknfrlC69.2 Atrioventricular block, xukcyxnmO62.2 Presence of prosthetic heart spqymI35.32 Chronic diastolic (congestive) heart lsrgrxvF25.9 Chronic kidney disease, yutbvhkrqfcH34.2 Old myocardial mmefraieboY09.10 Atherosclerotic heart disease of [place] coronary artery withI44.7 Left bundle-branch block, soqztipodzrH85.9 Amyloidosis, ezvyrizktwqF06.2 Gastrointestinal hemorrhage, gpftyfazcnwL70.5 Hyperlipidemia, offtgcmpiilE00.9 Peripheral vascular disease, raylgcbttinN99.9 Hypothyroidism, unspecified Functional Status Description No Information Available Mental Status Description No Information Available Referrals Refer to Reason for Referral Status Appt Date Beltran Umanzor MD atypical atrial flutter management Sent [address] [place] [address] [phone]
--- NOTE | 2019-04-21 20:45 | ED ---
Complex/Multi-Sys Presentation - HPI Summary HPI Summary: This pt is an 83 y/o male presenting [facility] c/o SOB and pain from shoulders up to your neck. Pt reports he has also been getting aching pain in legs "like he is tired" and pressure on his eyes. He notes he has gained weight recently, 2 -3 lbs in the last week. Additionally reports a cough. Pt states he has to sit down and recuperate. Denies chest pain, lightheadedness, dizziness. Pt notes he has been taking 4 mg of Bumetanide. Pt reports Dr. Hill, pit furnace operator, sent the pt for further work up. PMHx: CHF, TVAR about 1 year ago, pacemaker, stents, recent cardioversion in March 2019. Pt has right below the knee amputation. - History Of Current Complaint Chief Complaint: EDShortnessOfBreath Time Seen by Provider: 04/21/19 20:37 Hx Obtained From: Patient Onset/Duration: Lasting Days, Still Present Timing: Days Severity Currently: Moderate Aggravating Factor(s): nothing Alleviating Factor(s): nothing Associated Signs And Symptoms: Positive: SOB, Cough, Other - POSITIVE: pain from shoulder up to neck, pressure on eyes, recent weight gain. NEGATIVE: lightheadedness.. Negative: Dizziness, Chest Pain, Fever - Allergies/Home Medications Allergies/Adverse Reactions: Allergies Allergy/AdvReac Type Severity Reaction Status Date / Time furosemide Allergy Mild Rash Verified 04/21/19 18:27 tramadol Allergy Mild Dizziness Verified 04/21/19 18:27 KATHRYN Inhibitors Allergy Unknown Verified 04/21/19 18:27 Reaction Details spironolactone Allergy Rash Verified 04/21/19 18:27 valsartan Allergy Unknown Verified 04/21/19 18:27 Reaction Details angiotensin receptor willie Allergy Unknown Uncoded 03/14/19 11:26 Reaction Details Home Medications: Home Medications Amiodarone TAB* [Cordarone TAB*] 400 mg PO BID 04/21/19 [History Confirmed 04/21] Losartan TAB* [Cozaar TAB*] 12.5 mg PO DAILY 04/21/19 [History Confirmed ] PMH/Surg Hx/FS Hx/Imm Hx Endocrine/Hematology History: Reports: Hx Diabetes Denies: Hx Thyroid Disease Cardiovascular History: Reports: Hx Angina, Hx Atrial Fibrillation, Hx Congestive Heart Failure, Hx Coronary Artery Disease, Hx Hypercholesterolemia, Hx Hypertension - ON MEDS, Hx Pacemaker/ICD, Hx Peripheral Vascular Disease, Hx Valvular Heart Disease Denies: Hx Myocardial Infarction, Other Cardiovascular Problems/Disorders - DENIES Respiratory History: Reports: Hx Pneumonia Denies: Hx Asthma, Other Respiratory Problems/Disorders - DENIES GI History: Reports: Hx Gastrointestinal Bleed History: Reports: Hx Chronic Renal Failure, Hx Renal Disease, Other Problems/Disorders - chronic kidney dx Musculoskeletal History: Reports: Other Musculoskeletal History Denies: Hx Arthritis, Hx Osteoporosis Sensory History: Reports: Hx Cataracts, Hx Contacts or Glasses Denies: Hx Hearing Aid Opthamlomology History: Reports: Hx Cataracts, Hx Contacts or Glasses Neurological History: Reports: Other Neuro Impairments/Disorders - guillan barre Denies: Hx Headaches, Hx Seizures, Hx Transient Ischemic Attacks (TIA) - Surgical History Surgical History: Yes Surgery Procedure, Year, and Place: RIGHT LEG AMPUTATION, BILAT ROTATOR CUFFS Infectious Disease History: No Infectious Disease History: Denies: Traveled Outside the [place] in Last 30 Days - Family History Known Family History: Positive: Unknown - Adopted Family History: Unknown - pt is adopted - Social History Alcohol Use: None Hx Substance Use: No Substance Use Type: Reports: None Hx Tobacco Use: No Smoking Status (MU): Never Smoked Tobacco Have You Smoked in the Last Year: No Review of Systems Constitutional: Other - POSITIVE: recent weight gain Negative: Fever Eyes: Other - POSITIVE: pressure on eyes Negative: Chest Pain Positive: Shortness Of Breath, Cough Musculoskeletal: Other - POSITIVE: pain in legs, pain from shoulders up to neck Neurological: Other - NEGATIVE: lightheadedness, dizziness All Other Systems Reviewed And Are Negative: Yes Physical Exam - Summary Physical Exam Summary: VITAL SIGNS: Reviewed. GENERAL: Patient is a well-developed and nourished male who is lying comfortable in the stretcher. Patient is not in any acute respiratory distress. HEAD AND FACE: No signs of trauma. No ecchymosis, hematomas or skull depressions. No sinus tenderness. EYES: PERRLA, EOMI x 2, No injected conjunctiva, no nystagmus. EARS: Hearing grossly intact. Ear canals and tympanic membranes are within normal limits. MOUTH: Oropharynx within normal limits. NECK: Supple, trachea is midline, no adenopathy, no JVD, no carotid bruit, no c- spine tenderness, neck with full ROM. CHEST: Symmetric, no tenderness at palpation LUNGS: Clear to auscultation bilaterally. No wheezing or crackles. CVS: Regular rate and rhythm, S1 and S2 present, no murmurs or gallops appreciated. ABDOMEN: Soft, non-tender. No signs of distention. No rebound no guarding, and no masses palpated. Bowel sounds are normal. EXTREMITIES: Right below the knee amputation. Swelling in the left lower extremity. NEURO: Alert and oriented x 3. No acute neurological deficits. Speech is normal and follows commands. SKIN: Dry and warm Triage Information Reviewed: Yes Vital Signs On Initial Exam: Initial Vitals Temp Pulse Resp BP Pulse Ox 98.4 F 59 18 135/65 97 04/21/19 18:24 04/21/19 18:24 04/21/19 18:24 04/21/19 18:24 04/21/19 18:24 Vital Signs Reviewed: Yes Procedures - Sedation Patient Received Moderate/Deep Sedation with Procedure: No Diagnostics - Vital Signs Vital Signs Temp Pulse Resp BP Pulse Ox 04/21/19 20:15 98.7 F 60 16 112/52 97 04/21/19 18:24 98.4 F 59 18 135/65 97 - Laboratory Result Diagrams: 04/21/19 21:01 04/21/19 21:01 Lab Statement: Any lab studies that have been ordered have been reviewed, and results considered in the medical decision making process. - Radiology Chest XR Radiology Interpretation Completed By: ED Physician Summary of Radiographic Findings: ICD. Cardiomegaly. Some interstitial congestion. - EKG 20:55 Cardiac Rate: NL - at 60 bpm Summary of EKG Findings: EKG at 20:55 shows ventricular paced rhythm at a rate of 60 bpm. Complex Multi-Symp Course/Dx Assessment/Plan: This pt is an 83 y/o male presenting to [facility] c/o SOB and pain from shoulders up to your neck. Pt reports he has also been getting aching pain in legs "like he is tired" and pressure on his eyes. He notes he has gained weight recently, 2-3 lbs in the last week. Additionally reports a cough. Pt states he has to sit down and recuperate. Denies chest pain, lightheadedness, dizziness. Pt notes he has been taking 4 mg of Bumetanide. Pt reports Dr. Hill, pit furnace operator, sent the pt for further work up. Vestas results without any significant abnormality except for slight anemia, sodium 128, chloride 91, BUN is 80 and creatinine is 2.71. The patient has a history of chronic renal failure. Glucose is 306, troponin 0.1, BNP is 1096. Chest x-ray impression: cardiomegaly, ICD presents, and interstitial congestion. The patients blood pressure is 112/52, therefore, unable to give any Bumex for Lasix at this time. However the patient also seems to be extravascular overloaded and intravascular depleted since the BUN is elevated. Troponin is elevated. Patient already took his aspirin at home. The patient has hyperglycemia therefore the patient was given 1 dose of regular insulin. At this time I discussed my physical exam and findings with Dr. Alcantara from the hospitalist services who accepted the patient for admission. - Diagnoses Differential Diagnoses/HQI/PQRI: Cardiac Ischemia, Metabolic Abnormality, Other - CHF, ACS Provider Diagnoses: CHF (congestive heart failure), CKD (chronic kidney disease) stage 4, GFR 15- 29 ml/min, Elevated troponin - Physician Notifications Discussed Care Of Patient With: Juany Rodríguez - hospitalist Time Discussed With Above Provider: 21:50 Instructed by Provider To: Admit As Inpatient Discharge ED - Sign-Out/Discharge Documenting (check all that apply): Patient Departure - [place] [facility] [place] Discharge Plan Condition: Stable Disposition: ADMITTED TO [facility] Referrals: Arley Harp MD [Primary Care Provider] - - Billing Disposition and Condition Condition: STABLE Disposition: Admitted to [facility] - Attestation Statements Document Initiated by Jason: Yes Documenting Scribe: Dian Koroma Provider For Whom Jason is Documenting (Include Credential): Andrzej Williamson MD Scribe Attestation: Dian Villatoro, scribed for Andrzej Williamson MD on 04/21/19 at 2151. Scribe Documentation Reviewed: Yes Provider Attestation: The documentation as recorded by the Dian morris accurately reflects the service I personally performed and the decisions made by me, Andrzej Williamson MD Status of Scribe Document: Viewed
[2019-04-21 21:10] LABS: ABS Basophils 0.1 10^3/ul (0-0.2); ABS Eosinophils 0.2 10^3/ul (0-0.6); ABS Lymphocytes 0.3 10^3/ul (1.0-4.8); ABS Neutrophils 8.2 10^3/ul (1.5-7.7); Eosinophil % 1.8 %; Hematocrit 36 % (42-52); Lymphocyte % 3.6 %; Mean Corpuscular HGB Conc 33 g/dL (31-36); Mean Corpuscular Hemoglobin 29 pg (27-31); Mean Corpuscular Volume 87 fL (80-94); Mean Platelet Volume 8.3 fL (7.4-10.4); Platelet Count 164 10^3/uL (150-450); Red Blood Count 4.11 10^6 /uL (4.18-5.48); Red Cell Distribution Width 15 % (10-15); White Blood Count 9.7 10^3/uL (3.5-10.8)
[2019-04-21 21:19] LABS: Activated Partial Thrombo Time 36.8 seconds (26.0-38.0); INR 1.54 (0.82-1.09)
[2019-04-21 21:26] LABS: ALT 37 U/L (7-52); AST 25 U/L (13-39); Albumin 3.9 g/dL (3.2-5.2); Albumin/Globulin Ratio 1.3 (1-3); Alkaline Phosphatase 62 U/L (34-104); Anion Gap 8 mmol/L (2-11); BUN/Creatinine Ratio 29.5 (8-20); Blood Urea Nitrogen 80 mg/dL (6-24); C Reactive Protein 6.06 mg/L (<8.01); CO2 Carbon Dioxide 29 mmol/L (22-32); Calcium 9.4 mg/dL (8.6-10.3); Chloride 91 mmol/L (101-111); EGFR African American 27.5 (>60); EGFR Non-African American 22.7 (>60); Glucose 306 mg/dL (70-100); Potassium 4.5 mmol/L (3.5-5.0); Sodium 128 mmol/L (135-145); Total Protein 6.9 g/dL (6.4-8.9)
[2019-04-21] MEDS ORDERED: Insulin REGULAR(*) 1 UNITS UNIT IV PUSH ONE (21:30)
[2019-04-21 21:32] LABS: CKMB ng/mL 5.9 ng/mL (0.6-6.3)
[2019-04-21] MEDS ORDERED: Nitroglycerin TAB 0.4 MG* 0.4 MG TAB SL PRN (22:38)
[2019-04-21] MEDS ORDERED: Amiodarone TAB* 400 MG PO SCH (23:00)
[2019-04-21] MEDS ORDERED: Insulin GLARGINE(*) 1 UNITS UNIT SUBCUT SCH (23:00)
[2019-04-22] MEDS: Apixaban* 2.5 MG TAB PO SCH ×3 (01:07→21:15)
[2019-04-22] MEDS ORDERED: Acetaminophen TAB* 325 MG PO PRN (01:28)
--- NOTE | 2019-04-22 01:55 | HP ---
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 At this time, he has very nonspecific symptoms. He gained 2-3 lbs in the past week. He has been getting increasingly tired. Sometimes he feels dizzy and has pain behind his eyes when he walks too long. He started having a cough these past couple of days. He has a bit of pain in his back preventing him from laying flat in bed. In the ER, vitals are stable. His troponin level was 0.1. Pt said he had 2 stents placed last year. Per records, had a cardioversion this year. He does not have any chest pain. He denies orthopnea. - Past Medical History Cardiac: CAD, CHF, HTN Review of Systems - Measurements Intake and Output: Intake and Output Last 24 Hours 04/19/19 04/20/19 04/21/19 04/22/19 06:59 06:59 06:59 06:59 Weight 188 lb - Review of Systems Constitutional Symptoms: Positive: Weight Gain, Fatigue Negative: Weight Loss, Weakness, Fever, Night Sweats, Unexplained Falls, Other Dermatology: Negative: Normal, Rash, Skin Lesions, Cancer, Skin Lumps, Other HEENT: Negative: Normal, Change in Hearing, Vertigo, Dental Problems, Tinnitus, Sinus Problem, Other Eyes: Negative: Normal, Change in Vision, Double Vision, Eye Pain, Glaucoma, Cataract, Contacts or Glasses, Other Thyroid: Negative: Normal, Goiter, Thyroid Nodule, Cold Intolerance, Heat Intolerance , Sweatiness, Tremor, Frequent Defecation, Constipation, Palpitations, Primary Hypothyroidism, Primary Hyperthyroidism, Weight Loss, Weight Gain, Change in Skin/Hair, Change in Menstruation, Radiation Exposure, Other Pulmonary: Positive: Cough Negative: Normal, Sputum, Hemoptysis, Wheezing, Respiratory Distress, Shortness of Breath, COPD, Asthma, Exercise Intolerance, Home Oxygen, Other Cardiology: Negative: Normal, Chest Pain, Shortness of Breath, Palpitations, Swelling of Ankles, Peripheral Vascular Dis, Edema, Faintness, Syncope, Claudication, Proximal NocturnalDyspnea, Orthopnoea, Other Gastroenterology: Negative: Normal, Abdominal Pain, Nausea, Vomiting, Anorexia, Indigestion, Difficulty Swallowing, Heartburn, Constipation, Diarrhea, Blood in Stools, Change in Bowel Habits, Haematemesis, Melena, Other Genital - Urinary: Negative: Normal, Dysuria, Hematuria, Polyuria, Nocturia, Other Genitourinary - Male: Negative: Prostatism, Erectile Dysfunction, Family Hx of Prostate Cancer, Other Musculoskeletal: Positive: Low Back Pain Negative: Joint Pain, Joint Stiffness, Arthritis, Osteoporosis, Sciatica, Joint Deformities, Kyphoscoliosis, Other Endocrinology: Negative: Normal, Thyroid Problems, Adrenal Problems, Gonadal Problems, Family Hx Endocrine Disorders, Obesity, Diabetes Mellitus, Hyperglycemia, Hx Hypoglycemia, Diabetic Foot Ulcers, Calluses, Hirsutism, Menstrual Abnormalities , Polydipsia, Polyuria, Gonadal Problems, Gynecomastia, Pituitary disease, Other Hematologic/Lymphatic: Negative: Anemia, Easy Bruising, Hx Leukemia, Hx Lymphoma, Use of Anticoagulant, Use of Antiplatelet Drugs, Other Neurology: Negative: Normal, Headache, Migraines, Change in Vision, Diplopia, Dizziness , Change in Balancing, Change in Coordination, Change in Memory, Change in Speech, Change in Sphincter Function, Change in Walking, Numbness\Paresthesiae, Unexplained Weakness, Hx of Stroke\TIA, Hx of Seizures, Other Psychiatry: Negative: Normal, Depression, Anxiety, Depressed Mood, Anhedonia, Sexual Dysfunction, Weight Change, Guilt Feelings, Tearfulness, Unusual Fatigue, Unusual Anxiety, Suicidal Ideation, Hypomania, Eating Disorders, Other Allergic/Immunologic: Negative: Hx Anaphylaxis, Hx Angioedema, Hx Environmental, Hx Seasonal, Asthma, Hx HIV, Immunocompromise, Swollen Glands LymphNodes, Other Objective Active Medications: Acetaminophen (Tylenol Tab*) 650 mg PO Q6H PRN PRN Reason: PAIN - MILD Amiodarone HCl (Cordarone Tab*) 400 mg PO BID [facility] Last Admin: 04/22/19 01:05 Dose: 400 mg Apixaban (Eliquis*) 2.5 mg PO BID [facility] Last Admin: 04/22/19 01:07 Dose: Not Given Aspirin (Aspirin 81 Mg Chew Tab*) 81 mg PO DAILY [facility] Atorvastatin Calcium (Lipitor*) 80 mg PO QPM [facility] Insulin Glargine (Lantus(*)) 12 units SUBCUT Q24H [facility] Last Admin: 04/22/19 01:08 Dose: Not Given Losartan Potassium (Cozaar Tab*) 12.5 mg PO DAILY [facility] Nitroglycerin (Nitroglycerin Tab 0.4 Mg*) 0.4 mg SL Q5M PRN PRN Reason: ANGINA Vital Signs - 8 hr 04/21/19 04/21/19 04/21/19 18:24 20:15 20:44 Temperature 98.4 F 98.7 F Pulse Rate 59 60 60 Respiratory 18 16 15 Rate Blood Pressure 135/65 112/52 144/74 (mmHg) O2 Sat by Pulse 97 97 96 Oximetry 04/21/19 04/21/19 04/21/19 20:45 21:00 21:54 Temperature Pulse Rate 60 61 Respiratory 26 19 12 Rate Blood Pressure 133/72 (mmHg) O2 Sat by Pulse 96 96 Oximetry 04/21/19 04/21/19 04/21/19 22:00 22:25 22:54 Temperature Pulse Rate 60 59 58 Respiratory 13 16 10 Rate Blood Pressure 125/72 122/60 (mmHg) O2 Sat by Pulse 93 94 96 Oximetry 04/21/19 04/21/19 04/21/19 23:00 23:24 23:55 Temperature 98.0 F Pulse Rate 60 60 61 Respiratory 12 13 8 Rate Blood Pressure 122/67 143/60 (mmHg) O2 Sat by Pulse 95 97 93 Oximetry 04/22/19 04/22/19 00:00 00:25 Temperature Pulse Rate 166 Respiratory 12 Rate Blood Pressure 120/57 (mmHg) O2 Sat by Pulse 93 Oximetry Appearance: NID Eyes: No Scleral Icterus, PERRLA Ears/Nose/Mouth/Throat: Clear Oropharnyx, Mucous Membranes Moist Neck: NL Appearance and Movements; NL JVP, Trachea Midline Respiratory: Symmetrical Chest Expansion and Respiratory Effort, Clear to Auscultation, Clear to Percussion Cardiovascular: NL Sounds; No Murmurs; No JVD, - - 1+ edema Abdominal: NL Sounds; No Tenderness; No Distention, No Hepatosplenomegaly Extremities: - - has a prosthesis Neurological: Alert and Oriented x 3 Result Diagrams: 04/21/19 21:01 04/21/19 21:01 Assess/Plan/Problems-Billing Assessment: - Patient Problems (1) Elevated troponin Current Visit: No Status: Acute Code(s): R79.89 - OTHER SPECIFIED ABNORMAL FINDINGS OF BLOOD CHEMISTRY SNOMED Code(s): 902907243 Comment: - Trops have been persistently elevated for two months - Today, it is 0.1, EKG shows a paced rhythm will trend troponins (2) Afib Current Visit: No Status: Acute Code(s): I48.91 - UNSPECIFIED ATRIAL FIBRILLATION SNOMED Code(s): 75566274 Comment: - Continue home amiodarone - Continue apixaban (3) CKD (chronic kidney disease) stage 4, GFR 15-29 ml/min Current Visit: No Status: Acute Code(s): N18.4 - CHRONIC KIDNEY DISEASE, STAGE 4 (SEVERE) SNOMED Code(s): 190884185 Comment: creatinine at baseline. (4) DVT prophylaxis Current Visit: No Status: Acute Code(s): IFT6727 - SNOMED Code(s): 544044296 Comment: watson (5) Diastolic heart failure Current Visit: No Status: Acute Priority: High Code(s): I50.30 - UNSPECIFIED DIASTOLIC (CONGESTIVE) HEART FAILURE SNOMED Code(s): 903272886 Comment: Not decompensated. He is breathing comfortably at room air. Has 1+ edema in his leg. Denies orthopnea. His BNP however is elevated, he did gain 2-3 lbs this week. Cardiology asked him to take 3 pills of his bumex which he did. No need for more diuresis today. (6) Full code status Current Visit: No Status: Acute Code(s): Z78.9 - OTHER SPECIFIED HEALTH STATUS SNOMED Code(s): 985013903 (7) Hypertension Current Visit: No Status: Acute Code(s): I10 - ESSENTIAL (PRIMARY) HYPERTENSION SNOMED Code(s): 58508750 Comment: Pt is on losartan (8) Type 2 diabetes mellitus Current Visit: No Status: Chronic Comment: Uncontrolled - Accuchecks ACHS diabetic diet Lantus 12 nightly
[2019-04-22 02:26] LABS: Troponin I 0.11 ng/mL (<0.03)
[2019-04-22 03:49] LABS: TSH (Thyroid Stimulating Horm) 26.45 mcIU/mL (0.34-5.60)
[2019-04-22 06:11] LABS: ABS Eosinophils 0.2 10^3/ul (0-0.6); ABS Lymphocytes 0.4 10^3/ul (1.0-4.8); ABS Monocytes 0.9 10^3/ul (0-0.8); ABS Neutrophils 6.2 10^3/ul (1.5-7.7); Eosinophil % 2.9 %; Hematocrit 33 % (42-52); Hemoglobin 10.9 g/dL (14.0-18.0); Lymphocyte % 5.4 %; Mean Corpuscular HGB Conc 33 g/dL (31-36); Mean Corpuscular Hemoglobin 29 pg (27-31); Mean Corpuscular Volume 86 fL (80-94); Mean Platelet Volume 7.9 fL (7.4-10.4); Platelet Count 143 10^3/uL (150-450); Red Blood Count 3.79 10^6 /uL (4.18-5.48); Red Cell Distribution Width 15 % (10-15); White Blood Count 7.8 10^3/uL (3.5-10.8)
[2019-04-22 06:43] LABS: Calcium 9.1 mg/dL (8.6-10.3); EGFR African American 29.9 (>60); EGFR Non-African American 24.7 (>60); Potassium 4.1 mmol/L (3.5-5.0)
[2019-04-22 08:04] LABS: Troponin I 0.14 ng/mL (<0.03)
--- NOTE | 2019-04-22 08:19 | CONSULT ---
Subjective Date of Service: 04/22/19 Interval History: Admission date 04/21/2019 Consult date 04/22/2019 Service: Hospitalist PCP: Dr. Harp Operator Receptionist: Dr. Vera Heart failure nuclear medical technologist: Dr. Yanez Regulatory Affairs Assistant: Dr. Umanzor Quill Reamer: Previously Dr. Beauchamp CC: Weakness, weight gain, exertional shoulder discomfort Reason for consult: Same HPI Mr. Méndez is a 83 year old man very well known to me with complex history as below. His daughter Sia ([phone]) is a cardiac rehab nurse in [place]. He has had issues recently with atypical atrial flutters and is now on amiodarone 200 mg po daily and no arrhythmias since 03/14/2019. Because of what is felt to be multifocal flutter from amyloid infiltration ablation has not been pursued and he recently saw Dr. Umanzor (I was present for part of that office visit and Sia was also there). He has had issues with weakness, weight gain and somewhat worsening kidney function. Bumex was becoming less effective. It was changed to torsemide 60 mg and this brought weight down to 179 pounds at home on 04/04/2019 but this caused a rash similar to lasix and he was changed back to 2 mg of bumex but this was not effective and has been taking 4 mg last few days but weight went back up again. He has also noticed about 3 weeks of exertional bilateral shoulder discomfort radiating to neck, eyeballs and head relieved with rest. 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 1995 or 1996. Had trauma injury, infected hardware, amputation. Arthoplasty - Bilateral shoulders Cardiac Procedures: Cardiac Catheterization - (01/01/2018) LAD non-obstructive disease, Proximal 50- 60% Lcx disease, heavily calcified RCA obstrucitve lesion with ANGÉLICA 1 flow. Had subsequent rotablator and JUDY x 2 to mid-distal RCA Multiple cardioversions TAVR valve with pacemaker afterwards FH: Non-contributory SH: Marital: .Lives With: .Occupation: Retired. Personal Habits: Smoking: Patient has never smoked.Cigarette Use: Never Smoked Cigarettes.Alcohol: Denies alcohol use.Drug Use: Denies Drug Use.Daily Medications Active Medications: Acetaminophen (Tylenol Tab*) 650 mg PO Q6H PRN PRN Reason: PAIN - MILD Amiodarone HCl (Cordarone Tab*) 200 mg PO DAILY [facility] Apixaban (Eliquis*) 2.5 mg PO BID [facility] Last Admin: 04/22/19 01:07 Dose: Not Given Aspirin (Aspirin 81 Mg Chew Tab*) 81 mg PO DAILY [facility] Atorvastatin Calcium (Lipitor*) 80 mg PO QPM [facility] Bumetanide (Bumex Tab*) 4 mg PO DAILY [facility] Insulin Glargine (Lantus(*)) 12 units SUBCUT 0800 [facility] Levothyroxine Sodium (Synthroid Tab*) 50 mcg PO DAILY@0600 [facility] Losartan Potassium (Cozaar Tab*) 12.5 mg PO DAILY [facility] Nitroglycerin (Nitroglycerin Tab 0.4 Mg*) 0.4 mg SL Q5M PRN PRN Reason: ANGINA Home Medications: Atorvastatin* [Lipitor 20 MG*] 80 mg PO QPM 10/08/15 [History Confirmed 04/21/19 ] Aspirin 81 mg CHEW TAB* 81 mg PO DAILY 08/04/16 [History Confirmed 04/21/19] Apixaban* [Eliquis*] 2.5 mg PO BID 03/11/19 [History Confirmed 04/21/19] Bumetanide TAB* [Bumex 1 MG TAB*] 1 - 3 mg PO DAILY 03/11/19 [History Confirmed 04/21/19] Calcium Carbonate/Vitamin D3 [Calcium 600 + Vit D Tablet] 1 each PO DAILY [History Confirmed 04/21/19] Insulin GLARGINE(*) [Lantus(*)] 12 units SUBCUT Q24H 03/11/19 [History Confirmed 04/21/19] Multivitamin [Multivitamins] 1 each PO DAILY 03/11/19 [History Confirmed ] Nitroglycerin TAB 0.4 MG* 0.4 mg SL Q5M PRN 03/11/19 [History Confirmed 04/21/19 ] Sitagliptin Phosphate [Januvia] 100 mg PO DAILY 03/11/19 [History Confirmed ] Tafamidis Meglumine [Vyndaqel] 80 mg PO BEDTIME 03/11/19 [History Confirmed ] Amiodarone TAB* [Cordarone TAB*] 200 mg po daily Losartan TAB* [Cozaar TAB*] 12.5 mg PO DAILY 04/21/19 [History Confirmed ] Review of Systems - Measurements Intake and Output: Intake and Output Last 24 Hours 04/20/19 04/21/19 04/22/19 04/23/19 06:59 06:59 06:59 06:59 Output Total 0 Balance 0 Weight 187 lb 4.8 oz Output: Urine 0 - Review of Systems Constitutional Symptoms: Positive: Weight Gain, Weakness, Fatigue Negative: Weight Loss, Fever, Night Sweats Dermatology: Negative: Rash, Skin Lesions HEENT: Negative: Change in Hearing, Vertigo, Other Eyes: Negative: Change in Vision, Double Vision Thyroid: Positive: Weight Gain Negative: Weight Loss Pulmonary: Positive: Shortness of Breath, Exercise Intolerance Negative: Cough, Sputum, Hemoptysis Cardiology: Positive: Shortness of Breath, Edema Negative: Syncope Gastroenterology: Negative: Blood in Stools, Haematemesis, Melena Genital - Urinary: Negative: Dysuria, Hematuria Musculoskeletal: Negative: Joint Pain, Joint Stiffness Endocrinology: Positive: Diabetes Negative: Polydipsia, Polyuria Hematologic/Lymphatic: Positive: Use of Anticoagulant, Use of Antiplatelet Drugs Neurology: Negative: Hx of Stroke\TIA, Hx Seizures Psychiatry: Negative: Unusual Anxiety, Suicidal Ideation Allergic/Immunologic: Negative: Hx HIV, Immunocompromise Review of Systems Statement: All other review of systems negative, unless stated above. Objective Vital Signs: Temp Pulse Resp BP Pulse Ox 98.3 F 58 16 109/53 94 04/22/19 03:39 04/22/19 03:39 04/22/19 07:43 04/22/19 03:39 04/22/19 03:39 Oxygen Devices in Use Now: None Appearance: frail, elderly, pleasant Ears/Nose/Mouth/Throat: Clear Oropharnyx, Mucous Membranes Moist Neck: Trachea Midline, - - mild jvd Respiratory: Symmetrical Chest Expansion and Respiratory Effort, Clear to Auscultation Cardiovascular: RRR, - - mild jvd, 1/6 murmur, pacemaker site intact Abdominal: NL Sounds; No Tenderness; No Distention Extremities: - - mild edema left leg, s/p amputation righ tleg Skin: No Rash or Ulcers Neurological: Alert and Oriented x 3 Laboratory Results: 04/22/19 05:44 04/22/19 05:44 INR (Anticoag Therapy) 1.54 (0.82-1.09) H 04/21/19 21:01 APTT 36.8 seconds (26.0-38.0) 04/21/19 21:01 Total Bilirubin 0.60 mg/dL (0.2-1.0) 04/21/19 21:01 AST 25 U/L (13-39) 04/21/19 21:01 ALT 37 U/L (7-52) 04/21/19 21:01 Alkaline Phosphatase 62 U/L (34-104) 04/21/19 21:01 CK-MB (CK-2) 5.9 ng/mL (0.6-6.3) 04/21/19 21:01 B-Natriuretic Peptide 1096 pg/mL (<=100) H 04/21/19 21:01 Total Protein 6.9 g/dL (6.4-8.9) 04/21/19 21:01 Albumin 3.9 g/dL (3.2-5.2) 04/21/19 21: Globulin 3.0 g/dL (2-4) 04/21/19 21:01 Albumin/Globulin Ratio 1.3 (1-3) 04/21/19 21:01 TSH 26.45 mcIU/mL (0.34-5.60) H 04/22/19 01:50 04/21/19 04/22/19 04/22/19 21:01 01:56 07:21 Troponin I 0.10 H* 0.11 H* 0.14 H* Diagnostic Imagin03/18/2018: 99m Tech pyro scan: Strongly suggestive of transthyretin cardiac amyloidosis 07/2016 lower extremity angiogram for non-healing wound: occluded L anterior tibial and posterior tibial, unsuccessful anterograde and retrograde approach. Subsequently healed with wound care Cardiac Testing: Echocardiogram - (03/23/2019) LV is normal in size. Moderate concentric LVH. Visual EF is 50-55%. Abnormal septal wall motion due to LBBB. LV regional wall motion findings: Basal inferior and Mid inferior hypokinesis. Abnormal diastolic filling pattern noted. Left atrial cavity is severely dilated. Normal RV size and function. Normal estimated PASP. Normal functioning aortic valve bio prothesis. Stress Test - (03/18/2018) Echocardiogram - (01/01/2018) TTE at [facility] 12/2017: Normal LVEF, mild-moderate , mild MR Stress Test - (03/26/2017) as per Dr. Hill. Small to moderate sized inferior infarct with sophy-infarct ischemia. Mra lower extremity - (12/12/2015) High grade focal 90-99% right mid popliteal artery lesion, complete left anterior and posterior tibial arteries proximally, patent left peroneal, reconstitution of mid to distal left posterior tibial artery Exam Date: 04/21/19 CHEST PA & LAT 2 VWS HISTORY: SOB IMPRESSION: 1. PULMONARY VASCULAR CONGESTION. 2. SMALL LEFT PLEURAL EFFUSION. 3. BIBASILAR ATELECTASIS VERSUS CONSOLIDATION. EKG Data: ekg on admission shows NSr 60 bpm, v paced Assessment/Plan Mr. 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 exertional angina - Continue eliquis 2.5 mg po bid - Continue aspirin 81 mg po daily - Continue losartan 12.5 mg po daily - Continue atorvastatin 80 mg daily - Restart bumex 4 mg po daily (ordered) - Patient was on amiodarone 200 mg po daily (not 400 bid) and this was changed - DM management per Primary service - Tafamidis not on formulary - Needs antibiotic prophylaxis for indicated procedures - Dr. Vera consulted (discussed on phone) for thyroid management in setting of amiodarone (ordered) - Dr. Jackson from [facility] consulted (discussed on phone) I think his exertional symptoms may actually be an anginal symptom from either restenosis of RCA stent, progression of Lcx or elevated LVEDP from volume and restrictive cardiomyopathy Sia had called [address] this morning. I tried to call her back but did not receive an answer (she may be at work) but if she calls back later today I can be available to review plan of care. Thank you for allowing me to participate in the cardiovascular care of this patient. Please do not hesitate to contact me with questions or concerns.
[2019-04-22 08:53] LABS: Free T4 0.66 ng/dL (0.61-1.12)
[2019-04-22] MEDS ORDERED: Bumetanide TAB* 2 MG PO SCH (09:00)
[2019-04-22] MEDS ORDERED: Amiodarone TAB* 400 MG PO SCH (09:00)
[2019-04-22] MEDS ORDERED: Losartan TAB* 25 MG PO SCH (09:00)
[2019-04-22] MEDS: Aspirin 81 mg CHEW TAB* 81 MG TAB.CHEW PO SCH (09:35)
[2019-04-22] MEDS: Levothyroxine TAB* 50 MCG TAB PO SCH (09:35)
[2019-04-22] MEDS: Insulin GLARGINE(*) 1 UNITS UNIT SUBCUT SCH (09:36)
--- NOTE | 2019-04-22 11:48 | PN ---
Subjective Date of Service: 04/22/19 Interval History: Patient admitted yesterday w/ pressure in shoulders/neck/head, possible angina. Denies SOB. Had some weight gain, mild edema LLE. No further angina, but has not been OOB. Denies palpitations. Eating well. Denies h/o thyroid disease. Family History: Unchanged from Admission Social History: Unchanged from Admission Past Medical History: Unchanged from Admission Objective Active Medications: Acetaminophen (Tylenol Tab*) 650 mg PO Q6H PRN PRN Reason: PAIN - MILD Amiodarone HCl (Cordarone Tab*) 200 mg PO DAILY [facility] Apixaban (Eliquis*) 2.5 mg PO BID [facility] Last Admin: 04/22/19 09:35 Dose: 2.5 mg Aspirin (Aspirin 81 Mg Chew Tab*) 81 mg PO DAILY [facility] Last Admin: 04/22/19 09:35 Dose: 81 mg Atorvastatin Calcium (Lipitor*) 80 mg PO QPM [facility] Bumetanide (Bumex Tab*) 4 mg PO DAILY [facility] Last Admin: 04/22/19 09:34 Dose: 4 mg Insulin Glargine (Lantus(*)) 12 units SUBCUT 0800 [facility] Last Admin: 04/22/19 09:36 Dose: 12 units Levothyroxine Sodium (Synthroid Tab*) 50 mcg PO DAILY@0600 [facility] Last Admin: 04/22/19 09:35 Dose: 50 mcg Losartan Potassium (Cozaar Tab*) 12.5 mg PO DAILY [facility] Last Admin: 04/22/19 09:34 Dose: 12.5 mg Nitroglycerin (Nitroglycerin Tab 0.4 Mg*) 0.4 mg SL Q5M PRN PRN Reason: ANGINA Vital Signs - 8 hr 04/22/19 04/22/19 07:43 07:45 Temperature 36.6 C Pulse Rate 58 Respiratory 16 20 Rate Blood Pressure 129/54 (mmHg) O2 Sat by Pulse 92 Oximetry Oxygen Devices in Use Now: None Appearance: alert, no distress Ears/Nose/Mouth/Throat: Clear Oropharnyx Neck: Trachea Midline Respiratory: Symmetrical Chest Expansion and Respiratory Effort, Clear to Auscultation Cardiovascular: NL Sounds; No Murmurs; No JVD, RRR, - - 1+ edema LLE Extremities: - - Right BK amputee Skin: - - dry eschar and chronic stasis changes LLE Neurological: Alert and Oriented x 3 Lines/Tubes/Other Access: Clean, Dry and Intact Peripheral IV Nutrition: Taking PO's Result Diagrams: 04/22/19 05:44 04/22/19 05:44 Additional Lab and Data: Laboratory Tests 04/21/19 04/22/19 04/22/19 21:01 01:56 07:21 Troponin I 0.11 H* 0.14 H* B-Natriuretic Peptide 1096 H Assess/Plan/Problems-Billing Assessment: 83 year old man w/ restrictive 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 - Patient Problems (1) Angina concurrent with and due to arteriosclerosis of coronary artery Current Visit: Yes Status: Acute Priority: Medium Code(s): I25.119 - ATHSCL HEART DISEASE OF [place] COR ART W UNSP ANG PCTRS SNOMED Code(s): 74992524695037219 Comment: -Troponin mildly elevated, discussed with Dr. Hill -Continue to trend until peaked. -no repeat coronary intervention currently planned (2) Diastolic heart failure Current Visit: No Status: Acute Priority: Medium Code(s): I50.30 - UNSPECIFIED DIASTOLIC (CONGESTIVE) HEART FAILURE SNOMED Code(s): 159915148 Comment: -Last EF 45% on echo 2017, will obtain more recent echo from [facility]. -Diuresis increased, will follow I/O, daily weights -Angina/trop leak could be from diastolic failure vs coronary ischemia. (3) CKD (chronic kidney disease) stage 4, GFR 15-29 ml/min Current Visit: No Status: Acute Priority: Medium Code(s): N18.4 - CHRONIC KIDNEY DISEASE, STAGE 4 (SEVERE) SNOMED Code(s): 077120863 Comment: -creatinine near baseline. -Will be seen by Dr. Yeung today (4) Atrial flutter, paroxysmal Current Visit: Yes Status: Acute Priority: Medium Code(s): I48.92 - UNSPECIFIED ATRIAL FLUTTER SNOMED Code(s): 336234068 Comment: -Continue amiodarone for rhythm control. -Continue Eliquis (5) Hypothyroidism (acquired) Current Visit: Yes Status: Acute Priority: Medium Code(s): E03.9 - HYPOTHYROIDISM, UNSPECIFIED SNOMED Code(s): 080799344 Comment: -New diagnosis, almost surely related to amiodarone -Started L-thyroxine 50 mcg -Dr. Vera to see tomorrow. -TPO Ab pending (6) DVT prophylaxis Current Visit: No Status: Acute Priority: Low Code(s): HSQ6153 - SNOMED Code(s): 537887058 Comment: eliquis Status and Disposition: observation, possible discharge tomorrow
[2019-04-22 13:28] LABS: Urine Appearance Clear; Urine Bilirubin Negative (Negative); Urine Blood Negative (Negative); Urine Color Yellow; Urine Glucose Negative (Negative); Urine Ketones Negative (Negative); Urine Nitrite Negative (Negative); Urine Protein Negative (Negative); Urine Urobilinogen Negative (Negative)
[2019-04-22 13:41] LABS: Troponin I 0.13 ng/mL (<0.03)
--- NOTE | 2019-04-22 14:14 | CONSULT ---
Consult Consult: I saw Mr. Méndez at the request of Dr. Hill, to help with diuretic management. patient remains volume overloaded. please Change Bumex to 4 mg iv daily , first dose tonight. Add Spironolactone 25 mg in am, stop Losartan. strict I&O's , daily weights, low salt diet. it seems that his TW is about 170 lbs per his home weight. full consult note to follow.
[2019-04-22] MEDS ORDERED: Dextrose 50% VIAL 50 ml IV PUSH PRN (14:17)
[2019-04-22] MEDS ORDERED: Insulin LISPRO* 1 UNITS UNIT SUBCUT ONE (14:18)
--- NOTE | 2019-04-22 14:31 | ECHO ---
*[facility]* [place] [address] Fax #: [phone] Transthoracic Echocardiogram (Report amended [id number]) Patient: Pradip Méndez : 1935 Study Date: 04/22/2019 Age: 83 Gender: M HR: 60 bpm Height: 69 in /175.3 cm BSA: 2.01 m^2 Weight: 186.6 lb /84.8 kg BMI: 27.6 kg/m^2 *Manager Gaming: * Nancy Dos Santos RD *Referring Physician: Moreno AlexisReading Physician: * Mulugeta Hill MD Indications: Congestive Heart Failure. History: Atrial fibrillation. Congestive heart failure. PMH: Myocardial infarction. Functional status: Renal failure. Risk factors: Hypertension. Diabetes mellitus. Dyslipidemia. Labs, prior tests, procedures, and surgery: Transvascular aortic valve replacement. There was a stenosis which was treated with a stent. Permanent pacemaker system implantation. Right below knee amputation. Conclusions Summary: - Left ventricle: The cavity size is normal. Wall thickness is moderately increased. Systolic function is at the lower limits of normal. The estimated ejection fraction is 50-55%. Doppler parameters are consistent with a reversible restrictive pattern, indicative of decreased left ventricular diastolic compliance and/or increased left atrial pressure (grade 3 diastolic dysfunction). - Regional wall motion abnormality: Moderate hypokinesis of the basal-mid inferoseptal myocardium; mild hypokinesis of the mid inferior myocardium. - Right ventricle: The cavity size is mildly reduced. Systolic function is mildly to moderately reduced. - Ventricular septum: There is abnormal interventricular septal wall motion consistent with an RV pacemaker. - Left atrium: The atrium is moderately dilated. - Mitral valve: There is mild to moderate regurgitation. - Pericardium, extracardiac: There is no significant pericardial effusion. - Pulmonary arteries: Systolic pressure is within the normal range. Pulmonary artery pressure may be underestimated - Normal functioning TAVR valve. Recommendations: Compared to prior study from 03/23/2019, no clinically significant changes noted. Study data: Transthoracic echocardiogram. Procedure: Transthoracic echocardiography was performed. Image quality was fair. Complete 2D, spectral Doppler, and color flow Doppler. Location: Bedside. Patient status: Inpatient. Patient room number: 443-01. Rhythm: Paced rhythm. Findings Left ventricle: The cavity size is normal. Wall thickness is moderately increased. Systolic function is at the lower limits of normal. The estimated ejection fraction is 50-55%. Regional wall motion abnormalities: Moderate hypokinesis of the basal-mid inferoseptal myocardium; mild hypokinesis of the mid inferior myocardium. Doppler parameters are consistent with a reversible restrictive pattern, indicative of decreased left ventricular diastolic compliance and/or increased left atrial pressure (grade 3 diastolic dysfunction). Right ventricle: The cavity size is mildly reduced. Systolic function is mildly to moderately reduced. Ventricular septum: There is abnormal interventricular septal wall motion consistent with an RV pacemaker. Left atrium: The atrium is moderately dilated. Right atrium: The atrium is moderately dilated. Mitral valve: The Mitral valve annulus appears mildly calcified. The leaflets are mildly thickened. There is no evidence of stenosis. There is mild to moderate regurgitation. Aortic valve: There is a bioprosthetic valve. The leaflets are normal thickness. There is no evidence of stenosis. There is no significant regurgitation. Tricuspid valve: The leaflets are normal thickness. There is no evidence of stenosis. There is mild regurgitation. Pulmonic valve: The leaflets are normal thickness. There is no evidence of stenosis. There is trace regurgitation. Aorta: Aortic root: The aortic root is appears normal. Ascending aorta: The ascending aorta is appears normal. Aortic arch: The aortic arch is poorly visualized. Pericardium: A prominent pericardial fat pad is present. There is no significant pericardial effusion. Pulmonary arteries: Poorly visualized. Systolic pressure is within the normal range. Pulmonary artery pressure may be underestimated Systemic veins: Inferior vena cava: Not well visualized. Measurements Left ventricle Value Ref Right atrium continued Value Ref MAYURI, LAX 4.4 cm 4.2 - 5.8 SI dim, ES, A4C 5.3 cm 3.4 - 5.3 ESD, LAX 3.5 cm 2.5 - 4.0 Estimated RAP 8 mm Hg --------- FS, LAX (L) 19 % 25 - 43 PW, ED, LAX (H) 1.6 cm 0.6 - 1.0 Aortic valve Value Ref FS (L) 19 % 25 - 43 Karyn diam, ED 2.0 cm --------- PW, ED (H) 1.6 cm 0.6 - 1.0 Peak v, S 1.6 m/sec --------- E', lat karyn, TDI (L) 4.2 cm/sec >=10.0 VTI, S 28.0 cm -- ------- E/e', lat karyn, 26 Mean grad, S 4.0 mm Hg ----- ---- TDI Peak grad, S 10.2 mm Hg --------- E', med karyn, TDI (L) 3.3 cm/sec >=7.0 LVOT/AV, VTI ratio 0.64 -- ------- E/e', med karyn, 33 PANCHITO, VTI 2.02 cm^2 ----- ---- TDI PANCHITO, Vmax 1.77 cm^2 --------- E', avg, TDI 3.8 cm/sec E/e', avg, TDI (H) 29 <=14 Mitral valve Value Re f Peak E 1.09 m/sec --------- LVOT Value Ref Peak A 0.32 m/sec --------- Diam, S 2.00 cm Decel time 204 ms --------- Area 3.1 cm^2 Peak grad, D 4.8 mm Hg --------- Peak dusty, S 0.9 m/sec Peak E/A ratio 3.4 --------- VTI, S 18.0 cm Mean grad, S 2 mm Hg Pulmonic valve Value Ref SV 55 ml Peak v, S 0.64 m/sec --------- SV/bsa 27 ml/m^2 Peak grad, S 2.0 mm Hg --------- Ventricular septum Value Ref Tricuspid valve Value Ref IVS, ED (H) 1.4 cm 0.6 - 1.0 TR peak v 2.01 m/sec <=2.8 Peak RV-RA grad, S 16 mm Hg --------- Right ventricle Value Ref MAYURI, LAX 4.0 cm Aortic root Value Ref MAYURI minor ax, A4C (H) 4.9 cm 1.9 - 3.5 Root diam 2.8 cm <4.1 mid Pressure, S 24 mm Hg Ascending aorta Value Ref AAo AP diam, S 2.7 cm --------- Left atrium Value Ref AP dim, ES 3.90 cm 3.00 - Decending aorta Value Ref 4.00 Lexus peak dusty 0.54 m/sec --------- ML dim, A4C 4.6 cm SI dim, A4C 5.6 cm Pulmonary artery Value Ref Vol/bsa, ES, 1-p (H) 46 ml/m^2 12 - 37 Pressure, S 22.0 mm Hg --------- A4C Vol/bsa, ES, A/L (H) 47 ml/m^2 16 - 34 Right atrium Value Ref SI dim, ES 5.3 cm 3.4 - 5.3 ML dim, ES, A4C (H) 5.8 cm 2.6 - 4.4 Legend: (L) and (H) christen values outside specified reference range. Amended Mulugeta Hill MD 04/22/2019 13:32
[2019-04-22] MEDS ORDERED: Bumetanide IV* 0.25 MG/ML 4 ML VIAL SLOW PUSH SCH (16:00)
--- NOTE | 2019-04-22 17:32 | CONSULT ---
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 The patient has been having increasing shortness of breath as an outpatient going on for couple weeks. It was mostly apparent with exertion. Patient could not work more than 70 feet. 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 He has been seen in the cardiology clinic for diuretic management but at some point his loop diuretics could not control his volume overload anymore. He developed a rash with furosemide and torsemide. He was started on Bumex 2 mg daily without good response. This was increased to 4 mg daily with some response. Patient states that his best weight was 170 pounds he is now 187 I do not think we will be getting him down to 170 His shortness of breath became associated with bilateral shoulder pain radiated to his neck and eyes. Given the fact that he has a history of significant coronary artery disease and he is status post myocardial infarction this was possibly felt to be an atypical angina and the patient was admitted yesterday for further workup and management of his heart failure. He does also have a history of type 2 diabetes mellitus which has not been very well controlled over the years. This was complicated with diabetic retinopathy and as a result he is almost blind on the right eye. He had 2 right nephrectomy is in the past. He has a history of hypertension. He is currently on losartan 12.5 mg daily. he also has a history of peripheral vascular disease and poorly healing ulcers. He had a traumatic right BKA many years ago. He was admitted last night. He was started on Bumex 4 mg daily. He states that cannot tell a difference because he was not short of breath at rest at home and he did not walk around in the hospital. He states that he voided to large amounts of urine today. I do not think they are correctly recorded in the medical record. He denies shoulder pain which he had last night, as well and has neck or eye pain. ROS: Constitutional: no fevers, chills, night sweats, loss of appetite or weight loss CVS: shoulder pain which is considered to be atypical angina, no shortness of breath at rest, shortness of breath with exertion, no PND, increased leg swelling Respiratory: no cough, sputum production, wheezing, hemoptysis GI: no abdominal pain, N/V/D/C : no dysuria, hematuria, incontinence, hesitancy, slow urine flow All systems were reviewed and they were all negative unless otherwise specified current medications reviewed and include Bumex 4 mg daily losartan 12.5 mg daily, insulin, atorvastatin, Synthroid, nitroglycerin as needed, amiodarone, Eliquis. 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 He is retired. Does not smoke and he has never smoked. He does not drink alcohol and also denies recreational drugs physical exam: Constitutional: No acute distress, pleasant and conversant, But looks chronically ill Eyes: [place] conjunctiva, no ptosis, normal sclera, her right pupil is larger than the left. Vision is extremely decreased on the right side. Extraocular movements are intact ENMT: Nose and ears appear normal. . Head is atraumatic and normocephalic Neck: No thyromegaly appreciated, trachea midline, neck is supple with full range of motion Chest: Clear to auscultation with good respiratory effort, no CVA tenderness Cardiovascular: Regular rate and rhythm, normal S1-S2, no murmurs rubs or gallops appreciated. +1 presacral and lower extremity edema. Gastrointestinal: Abdomen is soft, nontender, nondistended. No hepatosplenomegaly or organomegaly appreciated. No masses. Bowel sounds are present. No rebound. Musculoskeletal: right BKA No digital cyanosis or clubbing. Skin:Normal temperature and turgor. Ulcer of about 2 x 4 cm covered with thick scab on the left knee, and another ulcer covered with thick scab of about 1x1 cm on the left pretibial area Neurologic: Speech fluent, no tremors. Grossly nonfocal. Psychiatric: Alert and oriented x3, judgment and insight intact. Normal memory. Normal mood. labs reviewed and are significant for a serum creatinine of 2.52, sodium of 134 , potassium of 4.1, total CO2 of 31 echocardiogram done today showed normal left ventricular ejection fraction with thick jones and diastolic dysfunction. Couple areas of hypokinesis. Right ventricle dilated with mildly reduced ejection fraction assessment and plan: 83-year-old gentleman with a complicated medical history being admitted for atypical chest pain, acute diastolic heart failure, inability to control of volume with by mouth diuretics at home, acute on chronic kidney disease. 1. Acute kidney injury - due to cardiorenal syndrome - hopefully creatinine is currently improved with diuresis, but in rare occasions it does not 2. Chronic kidney disease most probably secondary to non-proteinuric type 2 diabetes mellitus, hypertension, and possibly amyloid infiltration baseline serum creatinine 2 mg/dL 3.acute diastolic heart failure with volume overload - start Bumex 4 mg IV daily - and spironolactone 25 mg daily 4. mild hyponatremia - with no start thiazide diuretics which can make it worse 5. Hypertensionovercontrolled stop losartan discussed with thank you for allowing me to be part of this patient's medical care
[2019-04-22] MEDS: Insulin LISPRO* 1 UNITS UNIT SUBCUT SCH ×2 (17:52→21:00)
[2019-04-22] MEDS: BUMETANIDE IV SCH (17:53)
[2019-04-22] MEDS: NS 0.9% IV SCH (17:53)
[2019-04-22] MEDS ORDERED: Atorvastatin* 80 MG TAB PO SCH (18:00)
[2019-04-23] MEDS: Levothyroxine TAB* 50 MCG TAB PO SCH (05:54)
[2019-04-23 06:11] LABS: Calcium 9.3 mg/dL (8.6-10.3); Potassium 3.8 mmol/L (3.5-5.0)
[2019-04-23 06:16] LABS: EGFR African American 31.3 (>60); EGFR Non-African American 25.9 (>60)
[2019-04-23] MEDS ORDERED: Spironolactone TAB* 25 MG PO SCH (09:00)
[2019-04-23] MEDS ORDERED: Amiodarone TAB* 200 MG PO SCH (09:00)
[2019-04-23] MEDS: Apixaban* 2.5 MG TAB PO SCH (09:13)
[2019-04-23] MEDS: Aspirin 81 mg CHEW TAB* 81 MG TAB.CHEW PO SCH (09:13)
[2019-04-23] MEDS: Insulin GLARGINE(*) 1 UNITS UNIT SUBCUT SCH (09:14)
[2019-04-23] MEDS: Insulin LISPRO* 1 UNITS UNIT SUBCUT SCH ×2 (09:14→12:19)
[2019-04-23] MEDS: BUMETANIDE IV SCH (09:36)
[2019-04-23] MEDS: NS 0.9% IV SCH (09:36)
--- NOTE | 2019-04-23 11:01 | PN ---
Progress Note - Progress Note Date of Service: 04/23/67 Note: Chief complaint: Acute kidney injury, volume overload, acute diastolic heart failure history of present illness: Started on Bumex 4 mg IV and Spironolactone 25 mg last night. He responded well with a total output of 1.9 liters. He is in negative balance of about a liter per recorded intake and output. 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 Labs for today show a sodium of 137, potassium 3.8, total CO2 of 31 same as yesterday, creatinine of 2.42 mg/dL slightly improved from 2.52 mg/dL he is doing well, sitting up in his chair at the time of my visit. He states that he walk around in the hallway without getting short of breath. He continues to be without shortness of breath at rest. He denies chest pain, palpitations, nausea, vomiting or diarrhea. Physical exam: Blood pressure 112/58, total CO2 95% on room air, heart rate 64, temperature 98.4 constitutional: No acute distress, pleasant and conversant. Chest is clear to auscultation with good respiratory effort Cardiovascular: Regular rate and rhythm, normal S1 and S2, no murmurs rubs or gallops gallops appreciated. Trace to +1 lower extremities edema. Musculoskeletal: Right BKA noted digital cyanosis or clubbing. Psychiatric: Alert and oriented 3 judgment and insight intact and normal memory and normal mood. Assessment and plan.: Pradip Méndez is a very nice 83-year-old gentleman with chronic kidney disease and baseline serum creatinine of 2 mg/dl, hereditary amyloidosis with cardiac involvement and possibly kidney involvement, or arrhythmias. He has diastolic dysfunction and was admitted w Assessment and plan. 1. Acute kidney injury Due to cardiorenal syndrome. Creatinine slightly improving with diuresis. 2. Chronic kidney disease secondary to diabetes mellitus type II hypertension and possibly amyloid infiltration 3. Acute diastolic heart failure with volume overload and will and will continue Bumex 4 mg Ig daily. If discharged to home and we can probably let him go on Bumex 4 mg by mouth and spironolactone 25 daily. I will see him back in the clinfunction panel, UA, urine protein creatinine ratio. 4. Hypertension - blood pressure is on target off losartan. We will continue to keep you off losartan for now .
--- NOTE | 2019-04-23 11:19 | PN ---
Subjective - Subjective Reason for Note: Consultation Note History: Endocrine consultation - Dr. Moreno Guillen for amiodarone induced hypothyroidism. 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 I follow him for T2D and its complications. He presents with fatigue and hypothyroidism. He has taken amiodarone for a longtime. FH - he is adopted. 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 Hill -Continue to trend until peaked. -no repeat coronary intervention currently planned Atrial flutter, paroxysmal (Acute) I48.92 -Continue amiodarone for rhythm control. -Continue Eliquis Hypothyroidism (acquired) (Acute) E03.9 -New diagnosis, almost surely related to amiodarone -Started L-thyroxine 50 mcg -Dr. Vera to see tomorrow. -TPO Ab pending Current Medications: Current Medications Acetaminophen (Tylenol Tab*) 650 mg PO Q6H PRN PRN Reason: PAIN - MILD Amiodarone HCl (Cordarone Tab*) 200 mg PO DAILY [facility] Last Admin: 04/23/19 09:13 Dose: 200 mg Apixaban (Eliquis*) 2.5 mg PO BID JACK Last Admin: 04/23/19 09:13 Dose: 2.5 mg Aspirin (Aspirin 81 Mg Chew Tab*) 81 mg PO DAILY [facility] Last Admin: 04/23/19 09:13 Dose: 81 mg Atorvastatin Calcium (Lipitor*) 80 mg PO QPM [facility] Last Admin: 04/22/19 17:51 Dose: 80 mg Dextrose (Dextrose 50% Vial 50 Ml*) 25 ml IV PUSH .FOR FS < 60 - SS PRN PRN Reason: FS < 60 Bumetanide 4 mg/ Sodium (Chloride) 50 mls @ 200 mls/hr IV DAILY [facility]; Protocol Last Admin: 04/23/19 09:36 Dose: 200 mls/hr Insulin Glargine (Lantus(*)) 12 units SUBCUT 0800 [facility] Last Admin: 04/23/19 09:14 Dose: 12 units Insulin Human Lispro (Humalog*) 0 units SUBCUT ACHS [facility]; Protocol Last Admin: 04/23/19 09:14 Dose: Not Given Levothyroxine Sodium (Synthroid Tab*) 50 mcg PO DAILY@0600 [facility] Last Admin: 04/23/19 05:54 Dose: 50 mcg Nitroglycerin (Nitroglycerin Tab 0.4 Mg*) 0.4 mg SL Q5M PRN PRN Reason: ANGINA Spironolactone (Aldactone Tab*) 25 mg PO DAILY [facility] Last Admin: 04/23/19 10:40 Dose: Not Given Home Medications: Home Medications Medication Instructions Recorded Confirmed Type Atorvastatin* [Lipitor 20 MG*] 80 mg PO QPM 10/08/15 04/21/19 History Aspirin 81 mg CHEW TAB* 81 mg PO DAILY 08/04/16 04/21/19 History Apixaban* [Eliquis*] 2.5 mg PO BID 03/11/19 04/21/19 History Bumetanide TAB* [Bumex 1 MG TAB*] 1 - 3 mg PO DAILY 03/11/19 04/21/19 History Calcium Carbonate/Vitamin D3 1 each PO DAILY 03/11/19 04/21/19 History [Calcium 600 + Vit D Tablet] Insulin GLARGINE(*) [Lantus(*)] 12 units SUBCUT Q24H 03/11/19 04/21/19 History Multivitamin [Multivitamins] 1 each PO DAILY 03/11/19 04/21/19 History Nitroglycerin TAB 0.4 MG* 0.4 mg SL Q5M PRN 03/11/19 04/21/19 History Sitagliptin Phosphate [Januvia] 100 mg PO DAILY 03/11/19 04/21/19 History Tafamidis Meglumine [Vyndaqel] 80 mg PO BEDTIME 03/11/19 04/21/19 History Amiodarone TAB* [Cordarone TAB*] 400 mg PO BID 04/21/19 04/21/19 History Losartan TAB* [Cozaar TAB*] 12.5 mg PO DAILY 04/21/19 04/21/19 History Allergies: Allergies Allergy/AdvReac Type Severity Reaction Status Date / Time furosemide Allergy Mild Rash Verified 04/21/19 18:27 tramadol Allergy Mild Dizziness Verified 04/21/19 18:27 KATHRYN Inhibitors Allergy Unknown Verified 04/21/19 18:27 Reaction Details spironolactone Allergy See Comment Verified 04/22/19 16:05 valsartan Allergy Unknown Verified 04/21/19 18:27 Reaction Details Objective - Vital Signs Vital Signs: Vital Signs 04/22/19 04/22/19 04/22/19 11:15 15:15 20:01 Temperature 98 F 97.7 F 98.4 F Pulse Rate 59 59 59 Respiratory 18 20 20 Rate Blood Pressure 106/45 118/51 107/46 (mmHg) O2 Sat by Pulse 93 98 97 Oximetry 04/22/19 04/23/19 04/23/19 23:25 03:15 07:15 Temperature 98.1 F 98.4 F 97.5 F Pulse Rate 80 64 59 Respiratory 18 18 14 Rate Blood Pressure 120/50 112/50 108/48 (mmHg) O2 Sat by Pulse 99 95 96 Oximetry - Intake and Output Intake and Output: Intake & Output 04/20/19 04/21/19 04/22/19 04/23/19 11:59 11:59 11:59 11:59 Intake Total 240 1060 Output Total 0 1900 Balance 240 -840 Weight 187 lb 4.8 oz 186 lb 14.4 oz Intake: IV Fluids 100 Oral 240 960 Output: Urine 0 1900 Other: # Voids 2 ADLs: Meal Record Start: 04/21/19 23: 10 Freq: DAILY@0900,1400,1800 Status: Active Protocol: Created 04/21/19 23:10 System (Rec: 04/21/19 23:10 System [id number]) Document 04/22/19 09:00 [id number] (Rec: 04/22/19 10:58 [id number] TELE-C11) Document 04/22/19 14:00 [id number] (Rec: 04/22/19 14:41 [id number] TELE-C11) Document 04/22/19 18:00 [id number] (Rec: 04/22/19 18:46 [id number] TELE-C07) Document 04/23/19 09:00 [id number] (Rec: 04/23/19 10:06 [id number] TELE-C01) Intake and Output Start: 04/21/19 18: 27 Freq: Status: Cancelled Protocol: Created 04/21/19 18:27 System (Rec: 04/21/19 18:27 System [id number]) Intake and Output Start: 04/21/19 23: 10 Freq: DAILY@0600,1400,2200 Status: Cancelled Protocol: Created 04/21/19 23:10 System (Rec: 04/21/19 23:10 System TELE-C05) Intake and Output Start: 04/22/19 01: 29 Freq: 06,14,0 Status: Active Protocol: Created 04/22/19 01:29 [id number] (Rec: 04/22/19 01:29 [facility]-[id number]) Document 04/22/19 22:00 [id number] (Rec: 04/22/19 22:38 [id number] TELE-C07) Document 04/23/19 06:00 [id number] (Rec: 04/23/19 06:13 [id number] TELE-C09) - Physical Exam General Physical Exam Comment: warm and well perfused. Alert and orientated. General: No Cyanosis, No Jaundice, No Clubbing Thyroid Function: Clinically Euthyroid -: Yes Goiter - 25 grams, soft, No Thyroid Nodule, No Thyroid Bruit, No Thyroid Tenderness, No Hoarseness, No Cervical adenopathy, No Supraclav. adenopathy, No Proptosis, No Conjunctival Injection, No Lid Lag, No Periorbital Edema, No Dysconjugate Eye Movement Endocrine: No Central Obesity, No Acromegaly, No Vitiligo, No Flushing, No Acanthosis nigricans, No Violaceious striae, No Eliza Syndrome, No Buccal pigmenatation Results - Results Lab Results: Laboratory Results - last 24 hr 04/22/19 04/22/19 04/22/19 05:44 12:26 13:00 Sodium Potassium Chloride Carbon Dioxide Anion Gap BUN Creatinine Est GFR ( Amer) Est GFR (Non-Af Amer) BUN/Creatinine Ratio Glucose POC Glucose (mg/dL) 238 H Calcium Troponin I Urine Color Yellow Urine Appearance Clear Urine pH 5.0 Ur Specific [place] 1.010 Urine Protein Negative Urine Ketones Negative Urine Blood Negative Urine Nitrate Negative Urine Bilirubin Negative Urine Urobilinogen Negative Ur Leukocyte Esterase Negative Urine Glucose Negative Thyroid Peroxidase Ab 0.11 04/22/19 04/22/19 04/22/19 13:12 16:51 21:19 Sodium Potassium Chloride Carbon Dioxide Anion Gap BUN Creatinine Est GFR ( Amer) Est GFR (Non-Af Amer) BUN/Creatinine Ratio Glucose POC Glucose (mg/dL) 202 H 99 Calcium Troponin I 0.13 H* Urine Color Urine Appearance Urine pH Ur Specific [place] Urine Protein Urine Ketones Urine Blood Urine Nitrate Urine Bilirubin Urine Urobilinogen Ur Leukocyte Esterase Urine Glucose Thyroid Peroxidase Ab 04/23/19 04/23/19 05:00 07:28 Sodium 137 Potassium 3.8 Chloride 96 L Carbon Dioxide 31 Anion Gap 10 BUN 75 H Creatinine 2.42 H Est GFR ( Amer) 31.3 Est GFR (Non-Af Amer) 25.9 BUN/Creatinine Ratio 31.0 H Glucose 90 POC Glucose (mg/dL) 103 H Calcium 9.3 Troponin I Urine Color Urine Appearance Urine pH Ur Specific [place] Urine Protein Urine Ketones Urine Blood Urine Nitrate Urine Bilirubin Urine Urobilinogen Ur Leukocyte Esterase Urine Glucose Thyroid Peroxidase Ab Laboratory Tests 04/22/19 01:50 TSH 26.45 H Free T4 0.66 Total T3 60 L Assessment - Problem List Assessment: Patient Problems Hypothyroidism due to amiodarone (Acute) Leukocytosis (Acute) GI bleed (Acute) CKD (chronic kidney disease) stage 4, GFR 15-29 ml/min (Acute) Hypomagnesemia (Acute) Stage III chronic kidney disease (Acute) PAF (paroxysmal atrial fibrillation) (Acute) Pneumonia (Acute) DVT prophylaxis (Acute) Full code status (Acute) Anemia (Acute) Diastolic heart failure (Acute) Pulmonary edema with congestive heart failure (Acute) Angina concurrent with and due to arteriosclerosis of coronary artery (Acute) Atrial flutter, paroxysmal (Acute) Hypothyroidism (acquired) (Acute) Critical ischemia of foot (Acute) Afib (Acute) Elevated troponin (Acute) Hypertension (Acute) Type 2 diabetes mellitus (Chronic) Hyperkalemia (Acute) NSTEMI (non-ST elevated myocardial infarction) (Acute) Symptomatic bradycardia (Acute) Plan: Hypothyroidism due to amiodarone: He has biochemical hypothyroidism and an elevated TSH. This is amiodarone induced hypothyroidism. We have ruled out autoimmune thyroid disease. He doesn't know his family history as he was adopted. Amiodarone has many effects on thyroid metabolism. He is currently taking levothyroxine 50 mcg daily. I will increase to levothyroxine 75 mcg. This is because there is a blockage of T4 to T3 conversion with amiodarone and larger doses of LT4 are required. However, I want t o do this slowly with his history of cardiac disease. I will follow him as an outpatient. I explained this to the patient and have sent a Rx to his outpatient pharmacy through my office EMR. He knows to take this on its own on an empty stomach
[2019-04-23 11:45] VITALS: BP 115/49
--- NOTE | 2019-04-23 11:58 | PN ---
Subjective Date of Service: 04/23/19 Interval History: f/u ADHF Diuresing well Ambulated in hallway and asymptomatic Paced rhythm wants to go home. Medications Active Medications: Acetaminophen (Tylenol Tab*) 650 mg PO Q6H PRN PRN Reason: PAIN - MILD Amiodarone HCl (Cordarone Tab*) 200 mg PO DAILY [facility] Last Admin: 04/23/19 09:13 Dose: 200 mg Apixaban (Eliquis*) 2.5 mg PO BID [facility] Last Admin: 04/23/19 09:13 Dose: 2.5 mg Aspirin (Aspirin 81 Mg Chew Tab*) 81 mg PO DAILY [facility] Last Admin: 04/23/19 09:13 Dose: 81 mg Atorvastatin Calcium (Lipitor*) 80 mg PO QPM [facility] Last Admin: 04/22/19 17:51 Dose: 80 mg Dextrose (Dextrose 50% Vial 50 Ml*) 25 ml IV PUSH .FOR FS < 60 - SS PRN PRN Reason: FS < 60 Bumetanide 4 mg/ Sodium (Chloride) 50 mls @ 200 mls/hr IV DAILY [facility]; Protocol Last Admin: 04/23/19 09:36 Dose: 200 mls/hr Insulin Glargine (Lantus(*)) 12 units SUBCUT 0800 [facility] Last Admin: 04/23/19 09:14 Dose: 12 units Insulin Human Lispro (Humalog*) 0 units SUBCUT ACHS [facility]; Protocol Last Admin: 04/23/19 09:14 Dose: Not Given Levothyroxine Sodium (Synthroid Tab*) 50 mcg PO DAILY@0600 [facility] Last Admin: 04/23/19 05:54 Dose: 50 mcg Nitroglycerin (Nitroglycerin Tab 0.4 Mg*) 0.4 mg SL Q5M PRN PRN Reason: ANGINA Spironolactone (Aldactone Tab*) 25 mg PO DAILY [facility] Last Admin: 04/23/19 10:40 Dose: Not Given Objective Vital Signs: Temp Pulse Resp BP Pulse Ox 97.8 F 60 16 115/49 98 04/23/19 11:15 04/23/19 11:15 04/23/19 11:15 04/23/19 11:15 04/23/19 11:15 Oxygen Devices in Use Now: None Appearance: frail, elderly, pleasant Ears/Nose/Mouth/Throat: Clear Oropharnyx, Mucous Membranes Moist Neck: Trachea Midline, - - uncertain jvp Respiratory: Symmetrical Chest Expansion and Respiratory Effort, Clear to Auscultation Cardiovascular: RRR, - - mild jvd, 1/6 murmur, pacemaker site intact Abdominal: NL Sounds; No Tenderness; No Distention Extremities: - - trace edema left leg, s/p amputation right leg Skin: No Rash or Ulcers Neurological: Alert and Oriented x 3 Laboratory Results: 04/22/19 05:44 04/23/19 05:00 INR (Anticoag Therapy) 1.54 (0.82-1.09) H 04/21/19 21:01 APTT 36.8 seconds (26.0-38.0) 04/21/19 21:01 Total Bilirubin 0.60 mg/dL (0.2-1.0) 04/21/19 21:01 AST 25 U/L (13-39) 04/21/19 21:01 ALT 37 U/L (7-52) 04/21/19 21:01 Alkaline Phosphatase 62 U/L (34-104) 04/21/19 21:01 CK-MB (CK-2) 5.9 ng/mL (0.6-6.3) 04/21/19 21:01 B-Natriuretic Peptide 1096 pg/mL (<=100) H 04/21/19 21:01 Total Protein 6.9 g/dL (6.4-8.9) 04/21/19 21:01 Albumin 3.9 g/dL (3.2-5.2) 04/21/19 21:01 Globulin 3.0 g/dL (2-4) 04/21/19 21:01 Albumin/Globulin Ratio 1.3 (1-3) 04/21/19 21:01 TSH 26.45 mcIU/mL (0.34-5.60) H 04/22/19 01:50 04/21/19 04/22/19 04/22/19 21:01 01:56 07:21 Troponin I 0.10 H* 0.11 H* 0.14 H* 04/22/19 13:12 Troponin I 0.13 H* Diagnostic Imagin03/18/2018: 99m Tech pyro scan: Strongly suggestive of transthyretin cardiac amyloidosis 07/2016 lower extremity angiogram for non-healing wound: occluded L anterior tibial and posterior tibial, unsuccessful anterograde and retrograde approach. Subsequently healed with wound care Cardiac Testing: Echocardiogram - (03/23/2019) LV is normal in size. Moderate concentric LVH. Visual EF is 50-55%. Abnormal septal wall motion due to LBBB. LV regional wall motion findings: Basal inferior and Mid inferior hypokinesis. Abnormal diastolic filling pattern noted. Left atrial cavity is severely dilated. Normal RV size and function. Normal estimated PASP. Normal functioning aortic valve bio prothesis. Stress Test - (03/18/2018) Echocardiogram - (01/01/2018) TTE at [facility] 12/2017: Normal LVEF, mild-moderate , mild MR Stress Test - (03/26/2017) as per Dr. Hill. Small to moderate sized inferior infarct with sophy-infarct ischemia. Mra lower extremity - (12/12/2015) High grade focal 90-99% right mid popliteal artery lesion, complete left anterior and posterior tibial arteries proximally, patent left peroneal, reconstitution of mid to distal left posterior tibial artery Exam Date: 04/21/19 CHEST PA & LAT 2 VWS HISTORY: SOB IMPRESSION: 1. PULMONARY VASCULAR CONGESTION. 2. SMALL LEFT PLEURAL EFFUSION. 3. BIBASILAR ATELECTASIS VERSUS CONSOLIDATION. EKG Data: ekg on admission shows NSr 60 bpm, v paced Assessment/Plan Mr. 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 Jackson for further kidney/ electrolyte monitoring and diuretic adjustments as an outpatient - DM management per Primary service - Tafamidis not on formulary, restart at discharge - Needs antibiotic prophylaxis for indicated procedures - Thyroid management and follow up with Dr. Vera who also manages DM as an outpatient. I think his exertional anginal-like symptoms which have now resolved were more than likely mostly related to to elevated LVEDP from volume overload in the setting restrictive cardiomyopathy Patient can be discharged later today from a cardiac standpoint Thank you for allowing me to participate in the cardiovascular care of this patient. Please do not hesitate to contact me with questions or concerns.
[2019-04-24] MEDS ORDERED: Levothyroxine TAB* 75 MCG TAB PO SCH (06:00)
--- NOTE | 2019-04-24 12:20 | DS ---
CC: Dr. Harp, Primary Care; Dr. Vera; Dr. Jackson; Dr. Hill * DISCHARGE SUMMARY: DATE OF ADMISSION: 04/22/19 DATE OF DISCHARGE: 04/23/19 PRIMARY DIAGNOSIS: Acute exacerbation of chronic diastolic heart failure with restrictive physiology. SECONDARY DIAGNOSES: 1. Cardiac amyloidosis. 2. History of transcatheter aortic valve replacement. 3. History of heart block requiring pacemaker placement. 4. Poorly tolerated paroxysmal atrial fibrillation and atrial flutter. 5. Chronic kidney disease. 6. Hypertension. 7. Coronary artery disease, status post rotablation and drug-eluting stent December 2017. 8. Peripheral artery disease. 9. History of right [id number] amputation. 10. Type 2 diabetes. 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 MEDICATIONS ON DISCHARGE: 1. Apixaban 2.5 mg p.o. b.i.d. 2. Aspirin 81 mg p.o. daily. 3. Atorvastatin 80 mg p.o. q.h.s. 4. Calcium carbonate with vitamin D 1 tab p.o. daily. 5. Insulin glargine 5 units subcutaneous q.24 hours. 6. Multivitamin 1 tab p.o. daily. 7. Nitroglycerin 0.4 mg sublingual q.5 minutes x3 p.r.n. chest pain. 8. Januvia 100 mg p.o. daily. 9. Tafamidis meglumine 80 mg p.o. q.p.m. 10. Acetaminophen as needed. 11. Amiodarone 200 mg p.o. daily. 12. Bumetanide 4 mg p.o. q.a.m. 13. Levothyroxine 75 mcg p.o. q.a.m. 14. Spironolactone 25 mg p.o. q.a.m. HOSPITAL COURSE: An 83-year-old man with complex past medical history presented to the hospital with exertional discomfort in the shoulders, neck, and head as well as cough. He had gained approximately 3 pounds and there was concern about exertional angina and exacerbation of heart failure. The patient did not have any chest pain. The patient had troponin of 0.10 on admission which tani to 0.14 and it dropped to 0.13 on the second day of admission. The patient was seen in consultation by Dr. Hill regarding heart failure and possible coronary ischemia. Adjustments were made to his diabetic regimen with increased Bumex and stopping losartan and adding spironolactone. Dr. Hill did say there was likely some cardiac ischemia, but due to the stent procedure approximately 1 year ago and the need for any coronary intervention to occur at a tertiary care center that he elected to medically manage him here. The patient had good urine output from the change in diuretics with a negative 1 L of fluid balance on the day after admission. He was able to ambulate in the hallway and to bathroom without dyspnea or upper chest discomfort or neck discomfort. The patient was seen in consultation by Dr. Jackson of Nephrology. She assisted in fluid assessment and setting goals of his weight of 170 pounds on his home scale. She assisted in managing the Bumex and spironolactone and will see the patient for Nephrology followup in her clinic. The patient was initially started on IV Bumex and then she was transitioned to oral Bumex. He has chronic kidney disease stage 3 and possible amyloid infiltration in the kidneys as well as the heart. The patient had a TSH of 26.45 with a free T4 of 0.66 and a total T3 of 60 on admission. He was seen in consultation by Dr. Vera of Endocrinology. Dr. Vera also manages the patient's type 2 diabetes. The patient was initiated on 75 mcg of levothyroxine during the hospital stay and will be followed up for amiodarone use thyroid disease through Dr. Vera. He did order a thyroid peroxidase antibody which was pending on discharge to rule out Diana's thyroiditis. The patient was ambulatory and ready for discharge on 04/23/19. DISPOSITION: To home. DIET: Diabetic and low sodium diet. ACTIVITY: Walk with prosthetic leg and cane as tolerated. STATUS: Observation. CONDITION: Stable. [id number]/[facility] #: [id number]
== END 2019-04-23 17:00 | disposition home or self-care (01) ==
LOC: ED 18:15 → MEDTELE 22:35
PROVIDERS: ADMIT Student in an Organized Health Care Education/Training Program; ATTEND Internal Medicine
DX: I50.33 Acute on chronic diastolic (congestive) heart failure (principal); 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 disease with heart failure and stage 1 through stage 4 chronic kidney disease, or unspecified chronic kidney disease; E11.22 Type 2 diabetes mellitus with diabetic chronic kidney disease; N18.9 Chronic kidney disease, unspecified; Z79.4 Long term (current) use of insulin; E85.4 Organ-limited amyloidosis; I43 Cardiomyopathy in diseases classified elsewhere; Z95.4 Presence of other heart-valve replacement; Z95.0 Presence of cardiac pacemaker; I48.0 Paroxysmal atrial fibrillation; I73.9 Peripheral vascular disease, unspecified; Z89.511 Acquired absence of right leg below knee; G61.0 Guillain-Barre syndrome; E03.9 Hypothyroidism, unspecified; Z79.82 Long term (current) use of aspirin; Z79.899 Other long term (current) drug therapy; R79.89 Other specified abnormal findings of blood chemistry; E78.00 Pure hypercholesterolemia, unspecified; J90 Pleural effusion, not elsewhere classified; R94.31 Abnormal electrocardiogram [ECG] [EKG]
CPT/HCPCS: 36415; 71046; 80048; 80053; 81003; 82553; 83605; 83880; 84439; 84443; 84479; 84484; 85025; 85610; 85730; 86140; 86376; 93005; 93306; 99284; A9270-GY; G0378; G8978-GP-CI; G8979-GP-CI; G8980-GP-CI

== ENCOUNTER 2019-05-02 17:03 | Inpatient (IN) | payer MEDICARE, BC ==
[2019-05-02 20:50] LABS: Urine Appearance Clear; Urine Bilirubin Negative (Negative); Urine Blood 1+ (Negative); Urine Color Straw; Urine Glucose Negative (Negative); Urine Ketones Negative (Negative); Urine Nitrite Negative (Negative); Urine Protein Negative (Negative); Urine Specific Gravity 1.004 (1.010-1.030); Urine Urobilinogen Negative (Negative)
[2019-05-02 20:53] LABS: ABS Eosinophils 0.1 10^3/ul (0-0.6); ABS Lymphocytes 0.4 10^3/ul (1.0-4.8); ABS Monocytes 1.2 10^3/ul (0-0.8); ABS Neutrophils 7.8 10^3/ul (1.5-7.7); Eosinophil % 1.5 %; Hematocrit 34 % (42-52); Hemoglobin 11.4 g/dL (14.0-18.0); Lymphocyte % 4.1 %; Mean Corpuscular HGB Conc 33 g/dL (31-36); Mean Corpuscular Hemoglobin 29 pg (27-31); Mean Corpuscular Volume 86 fL (80-94); Mean Platelet Volume 7.9 fL (7.4-10.4); Nucleated Red Blood Cells % 0.1; Platelet Count 175 10^3/uL (150-450); Red Blood Count 3.99 10^6 /uL (4.18-5.48); Red Cell Distribution Width 15 % (10-15); White Blood Count 9.6 10^3/uL (3.5-10.8)
[2019-05-02 21:00] LABS: Urine Bacteria Absent (Absent); Urine Red Blood Cell Trace(0-2/hpf) (Absent); Urine White Blood Cell Absent (Absent)
--- NOTE | 2019-05-02 21:04 | ED ---
Complex/Multi-Sys Presentation - HPI Summary HPI Summary: Patient is an 83 y/o M presenting to the ED for a chief complaint of fatigue. Patient complains of neck pain, bilateral shoulder pain, bilateral arm pain, and bilateral LE pain when using a walker to walk. He states he feels fatigue and has vision changes when walking. Patient ambulates with a walker. He also notes constipation, abdominal bloating, and productive cough with phlegm. He has bilateral hand numbness from a PMHx of neuropathy that is at baseline. He believes he has fluid retention and that he might have a sinus infection because he has been swallowing phlegm at night. Patient was previously seen at [facility] one month ago for shortness of breath that has since resolved. Patient denies any fever, chills, diaphoresis, changes in food or fluid intake, erythema of eyes, sore throat, CP, SOB, abdominal pain, N/V, dysuria, hematuria , edema, rash, lightheadedness, or dizziness. PMHx is significant for atrial fibrillation, congestive heart failure, amyloidosis, DM, and Guillain-[place] Syndrome diagnosed at 23 y/o. At the time of his Guillain-[place] Syndrome diagnosis, he was isolated for a suspected polio infection and had Guillain- [place] Syndrome confirmed by lumbar puncture. He also has a [id number] prosthetic leg. In the 1970s, he was working at [employer] [place] when a pole fell on his right leg. The area was cleaned and placed in a cast, but was later infected. When the infection cleared, he elected to have an amputation, not wanting to have any further interventions. Patient sleeps on a recliner and notes he cannot lay flat to sleep for the last several years. He says he weighed 160 pounds one year ago. Patient takes Eliquis. Dr. Hill performed a cardioversion on the patient 1 months ago. PSHx is also significant for cardiac stent and pacemaker placement. - History Of Current Complaint Chief Complaint: EDGeneral Time Seen by Provider: 05/02/19 19:27 Hx Obtained From: Patient Onset/Duration: Still Present Timing: Constant Severity Currently: Moderate Severity Initially: Moderate Associated Signs And Symptoms: Positive: Cough - Productive with phlegm, Anticoagulation Therapy. Negative: Dizziness, Headache, SOB, Chest Pain, Edema , Nausea, Vomiting, Abdominal Pain, Dysuria, Decreased Oral Intake, Fever, Diaphoresis - Allergies/Home Medications Allergies/Adverse Reactions: Allergies Allergy/AdvReac Type Severity Reaction Status Date / Time furosemide Allergy Mild Rash Verified 05/02/19 17:09 tramadol Allergy Mild Dizziness Verified 05/02/19 17:09 KATHRYN Inhibitors Allergy Unknown Verified 05/02/19 17:09 Reaction Details spironolactone Allergy See Comment Verified 05/02/19 17:09 valsartan Allergy Unknown Verified 05/02/19 17:09 Reaction Details Home Medications: Home Medications Bumetanide TAB* [Bumex 1 MG TAB*] 6 mg PO DAILY 05/02/19 [History Confirmed 07/20] PMH/Surg Hx/FS Hx/Imm Hx Previously Healthy: Yes Endocrine/Hematology History: Reports: Hx Anticoagulant Therapy - Eliquis, Hx Diabetes, Other Endocrine/Hematological Disorders - Amyloidosis Denies: Hx Thyroid Disease Cardiovascular History: Reports: Hx Angina, Hx Atrial Fibrillation, Hx Auto Implanted Cardiovert Defib, Hx Congestive Heart Failure, Hx Coronary Artery Disease, Hx Hypercholesterolemia, Hx Hypertension, Hx Pacemaker/ICD, Hx Valvular Heart Disease, Other Cardiovascular Problems/Disorders - pacer, and cardioversion for aflutter Denies: Hx Myocardial Infarction, Hx Peripheral Vascular Disease Respiratory History: Reports: Hx Pneumonia Denies: Hx Asthma, Other Respiratory Problems/Disorders - DENIES GI History: Reports: Hx Gastrointestinal Bleed Denies: Hx Jaundice History: Reports: Hx Chronic Renal Failure, Hx Renal Disease, Other Problems/Disorders - chronic kidney dx Musculoskeletal History: Reports: Hx Arthritis, Other Musculoskeletal History Denies: Hx Osteoporosis Sensory History: Reports: Hx Contacts or Glasses Denies: Hx Cataracts, Hx Glaucoma, Hx Legally Blind, Hx Deafness, Hx Hearing Aid Opthamlomology History: Reports: Hx Contacts or Glasses Denies: Hx Cataracts, Hx Glaucoma, Hx Legally Blind EENT History: Denies: Hx Deafness Neurological History: Reports: Hx Peripheral Neuropathy, Other Neuro Impairments /Disorders - Guillain-[place] Syndrome Denies: Hx Headaches, Hx Seizures, Hx Transient Ischemic Attacks (TIA) Psychiatric History: Denies: Hx Anxiety, Hx Depression - Surgical History Surgical History: Yes Surgery Procedure, Year, and Place: RIGHT LEG AMPUTATION, BILAT ROTATOR CUFFS, Pacemaker, cardiac stent Infectious Disease History: No Infectious Disease History: Denies: Traveled Outside the [place] in Last 30 Days - Family History Known Family History: Positive: Unknown - Adopted Family History: Unknown - pt is adopted - Social History Occupation: Retired Lives: With Family Alcohol Use: Occasionally Hx Substance Use: No Substance Use Type: Reports: None Hx Tobacco Use: No Smoking Status (MU): Never Smoked Tobacco Have You Smoked in the Last Year: No Review of Systems Positive: Fatigue, Other - Negative changes in food or fluid intake. Negative: Fever, Chills Positive: Other - Positive vision changes with walking. Negative: Erythema Negative: Sore Throat Negative: Chest Pain Positive: Cough - Productive with phlegm. Negative: Shortness Of Breath Positive: Other - Positive constipation and abdominal bloating. Negative: Abdominal Pain, Vomiting, Nausea Negative: dysuria, hematuria Positive: Arthralgia - Bilateral shoulder, Myalgia - Neck, bilateral arm, and bilateral LE. Negative: Edema Negative: Rash Neurological: Other - Negative dizziness or lightheadedness Positive: Numbness - Bilateral hands, at baseline All Other Systems Reviewed And Are Negative: Yes Physical Exam - Summary Physical Exam Summary: Constitutional: Well-developed, Well-nourished, Alert. (-) Distressed Skin: Warm, Dry HENT: Normocephalic; Atraumatic Eyes: Conjunctiva normal Neck: Musculoskeletal ROM normal neck. (-) JVD, (-) Stridor, (-) Tracheal deviation Cardio: Rhythm regular, rate normal, Heart sounds normal; Intact distal pulses; The pedal pulses are 2+ and symmetric. Radial pulses are 2+ and symmetric. (-) Murmur Pulmonary/Chest wall: Effort normal. (-) Respiratory distress, (-) Wheezes, (-) Rales. Crackles in the right lung base. Abd: Soft, (-) tenderness, (-) Distension, (-) Guarding, (-) Rebound Musculoskeletal: (-) Edema. Right [id number] amputation. Lymph: (-) Cervical adenopathy Neuro: Alert, Oriented x3 Psych: Mood and affect Normal Triage Information Reviewed: Yes Vital Signs On Initial Exam: Initial Vitals Temp Pulse Resp BP Pulse Ox 97.0 F 60 19 138/80 98 05/02/19 17:06 05/02/19 17:06 05/02/19 17:06 05/02/19 17:06 05/02/19 17:06 Vital Signs Reviewed: Yes Procedures - Sedation Patient Received Moderate/Deep Sedation with Procedure: No Diagnostics - Vital Signs Vital Signs Temp Pulse Resp BP Pulse Ox 05/02/19 19:10 60 13 97 05/02/19 17:06 97.0 F 60 19 138/80 98 - Laboratory Lab Results: Lab Results 05/02/19 05/02/19 Range/Units 20:30 20:40 WBC 9.6 (3.5-10.8) 10^3/uL RBC 3.99 L (4.18-5.48) 10^6 /uL Hgb 11.4 L (14.0-18.0) g/dL Hct 34 L (42-52) % MCV 86 (80-94) fL MCH 29 (27-31) pg MCHC 33 (31-36) g/dL RDW 15 (10-15) % Plt Count 175 (150-450) 10^3/uL MPV 7.9 (7.4-10.4) fL Neut % (Auto) 81.7 % Lymph % (Auto) 4.1 % [place] % (Auto) 12.3 % Eos % (Auto) 1.5 % Baso % (Auto) 0.4 % Absolute Neuts (auto) 7.8 H (1.5-7.7) 10^3/ul Absolute Lymphs (auto) 0.4 L (1.0-4.8) 10^3/ul Absolute Monos (auto) 1.2 H (0-0.8) 10^3/ul Absolute Eos (auto) 0.1 (0-0.6) 10^3/ul Absolute Basos (auto) 0.0 (0-0.2) 10^3/ul Absolute Nucleated RBC 0.0 10^3/ul Nucleated RBC % 0.1 Urine Color Straw Urine Appearance Clear Urine pH 7.0 (5-9) Ur Specific [place] 1.004 L (1.010-1.030) Urine Protein Negative (Negative) Urine Ketones Negative (Negative) Urine Blood 1+ A (Negative) Urine Nitrate Negative (Negative) Urine Bilirubin Negative (Negative) Urine Urobilinogen Negative (Negative) Ur Leukocyte Esterase Negative (Negative) Urine Glucose Negative (Negative) Result Diagrams: 05/02/19 20:40 05/02/19 20:40 Lab Statement: Any lab studies that have been ordered have been reviewed, and results considered in the medical decision making process. - Radiology Chest X-ray Radiology Interpretation Completed By: ED Physician Summary of Radiographic Findings: Chest X-ray IMPRESSION: pulmonary effusion, right pulmonary infiltrate. Reviewed and interpreted by Dr. Oliva. - EKG 20:32 Cardiac Rate: Other Rate - [address] Segment: Normal Ectopy: None Summary of EKG Findings: EKG at 20:32 shows 60 BPM with ventricular-paced rhythm , no STEMI. Reviewed and interpreted by Dr. Oliva. Complex Multi-Symp Course/Dx Course Of Treatment: Patient is an 83 y/o M presenting to the ED for a chief complaint of fatigue. Patient complains of neck pain, bilateral shoulder pain, bilateral arm pain, and bilateral LE pain when using a walker to walk. He states he feels fatigue and has vision changes when walking. Patient ambulates with a walker. He also notes constipation, abdominal bloating, and productive cough with phlegm. He has bilateral hand numbness from a PMHx of neuropathy that is at baseline. He believes he has fluid retention and that he might have a sinus infection because he has been swallowing phlegm at night. Patient was previously seen at [facility] one month ago for shortness of breath that has since resolved. Patient denies any fever, chills, diaphoresis, changes in food or fluid intake, erythema of eyes, sore throat, CP, SOB, abdominal pain, N/V, dysuria, hematuria, edema, rash, lightheadedness, or dizziness. PMHx is significant for atrial fibrillation, congestive heart failure, amyloidosis, DM, and Guillain-[place] Syndrome diagnosed at 23 y/o. At the time of his Guillain- [place] Syndrome diagnosis, he was isolated for a suspected polio infection and had Guillain-[place] Syndrome confirmed by lumbar puncture. He also has a below- the-knee prosthetic leg. In the , he was working at [employer] [place] when a pole fell on his right leg. The area was cleaned and placed in a cast, but was later infected. When the infection cleared, he elected to have an amputation, not wanting to have any further interventions. Patient sleeps on a recliner and notes he cannot lay flat to sleep for the last several years. He says he weighed 160 pounds one year ago. Patient takes Eliquis. Dr. Hill performed a cardioversion on the patient 1 months ago. PSHx is also significant for cardiac stent and pacemaker placement. On exam, crackles in the right lung base , right [id number] amputation. Laboratory abnormal findings: RBC 3.99, Hgb 11.4, Hct 34, absolute neuts 7.8, absolute lymphs 0.4, absolute monos 1.2, sodium 130, chloride 88, BUN 95, creatinine 3.38, BUN/Creatinine ratio 28.1, glucose 141, troponin I 0.14, b-natriuretic peptide >1300, TSH 17.42, urine specific gravity 1.004, urine blood 1+. EKG at 20:32 shows 60 BPM with ventricular-paced rhythm, no STEMI. Chest X-ray IMPRESSION: pulmonary effusion , right pulmonary infiltrate. At 22:10, Dr. Ferrell agrees to admit the patient to [facility] with a diagnosis of CHF exacerbation. Patient will be admitted to [facility] with a diagnosis of CHF exacerbation. - Diagnoses Provider Diagnoses: CHF exacerbation - Physician Notifications Discussed Care Of Patient With: Eduard Ferrell - At 22:10, Dr. Ferrell agrees to admit the patient to [facility] with a diagnosis of CHF exacerbation. Time Discussed With Above Provider: 22:10 Instructed by Provider To: Admit As Inpatient Discharge ED - Sign-Out/Discharge Documenting (check all that apply): Patient Departure - Admit - Discharge Plan Condition: Stable Disposition: ADMITTED TO [facility] Referrals: Arley Harp MD [Primary Care Provider] - - Attestation Statements Document Initiated by Scribe: Yes Documenting Scribe: Ro Hoover Provider For Whom Scribe is Documenting (Include Credential): Jorge Oliva MD Scribe Attestation: Ro Villatoro, scribed for Jorge Oliva MD on 05/02/19 at 0071. Status of Scribe Document: Ready
[2019-05-02 21:10] LABS: ALT 46 U/L (7-52); AST 31 U/L (13-39); Albumin/Globulin Ratio 1.4 (1-3); Alkaline Phosphatase 60 U/L (34-104); Anion Gap 11 mmol/L (2-11); BUN/Creatinine Ratio 28.1 (8-20); Blood Urea Nitrogen 95 mg/dL (6-24); CO2 Carbon Dioxide 31 mmol/L (22-32); Calcium 9.6 mg/dL (8.6-10.3); Chloride 88 mmol/L (101-111); EGFR African American 21.3 (>60); EGFR Non-African American 17.6 (>60); Globulin 2.9 g/dL (2-4); Glucose 141 mg/dL (70-100); Magnesium 2.2 mg/dL (1.9-2.7); Potassium 4.7 mmol/L (3.5-5.0); Sodium 130 mmol/L (135-145); Total Protein 6.9 g/dL (6.4-8.9)
[2019-05-02 21:21] LABS: Troponin I 0.14 ng/mL (<0.03)
[2019-05-02 22:10] LABS: TSH (Thyroid Stimulating Horm) 17.42 mcIU/mL (0.34-5.60)
[2019-05-02] MEDS ORDERED: Acetaminophen TAB* 325 MG PO PRN (23:35)
[2019-05-02] MEDS ORDERED: Nitroglycerin TAB 0.4 MG* 0.4 MG TAB SL PRN (23:35)
[2019-05-02] MEDS ORDERED: Bumetanide IV* 0.25 MG/ML 4 ML VIAL SLOW PUSH ONE (23:37)
[2019-05-03 01:17] LABS: Troponin I 0.13 ng/mL (<0.03)
[2019-05-03] MEDS: Insulin GLARGINE(*) 1 UNITS UNIT SUBCUT SCH ×2 (01:59→22:10)
--- NOTE | 2019-05-03 02:51 | HP ---
CC: Dr. Harp * ADMISSION HISTORY AND PHYSICAL: DATE OF ADMISSION: 05/02/19 PRIMARY CARE PHYSICIAN: Dr. Harp. GRINDER: Dr. Vera. MANAGER MOBILITY: Dr. Hill. NEPHROLOGY: Dr. Jackson. CHIEF COMPLAINT: Generalized body aches and minimal shortness of breath and lower extremity edema. 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 The patient initially came in complaining of leg pain, which is worse with walking. It is mostly in legs and hips and radiates all the way to his neck, shoulder area and causes him to have headache and eye pain. Usually with rest, all these symptoms resolve and he has also noticed weight gain since discharge. He has gained a total of 3 pounds , however, within the last day, he claims that he has gained about a pound and a half. 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 He otherwise denies any fever, chills , any cough. He states that he does have some mild shortness of breath, but not as bad as the previous admission. Denies any chest pain or palpitations. He does have neuropathy-induced numbness, but nothing new and no other weakness. PAST MEDICAL HISTORY: As mentioned: 1. Paroxysmal AFib, on anticoagulation and amiodarone use. 2. ATTR amyloid, on tafamidis. 3. Chronic kidney disease, stage 4. 4. Heart failure with preserved ejection fraction likely restrictive cardiomyopathy. 5. Hypertension. 6. Coronary artery disease, status post stenting. 7. Peripheral vascular disease. 8. 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 9. 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 10. Type 2 diabetes. 11. Hypothyroidism. 12. 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 Initially, had an injury of his ankle, which was complicated due to infected hardware, which later required amputation. He has also had arthroplasty of both shoulders and bilateral cataract surgery and has had drug- eluting stents to the mid distal RCA and multiple attempts at cardioversions for Aflutter and TAVR with pacemaker placement. HOME MEDICATIONS: The patient is currently on: 1. Aspirin 81 mg oral daily. 2. Eliquis 2.5 mg oral twice a day. 3. Amiodarone 200 mg oral daily. 4. Tylenol 650 mg q.6 hours p.r.n. 5. Levothyroxine 75 mcg oral daily. 6. Insulin 12 units subcutaneous every 24 hours. 7. Calcium with vitamin D one tablet oral daily. 8. Bumex increased to 6 mg oral daily. 9. Lipitor 80 mg every evening. 10. Tafamidis 80 mg at bedtime. 11. Spironolactone 25 mg oral daily. 12. Januvia 100 mg oral daily. 13. Nitroglycerin 0.4 mg p.r.n. for chest pain. 14. Multivitamins oral daily. ALLERGIES: The patient allergic to FUROSEMIDE, which causes a mild rash; TRAMADOL, which causes dizziness, KATHRYN INHIBITORS and SPIRONOLACTONE both cause hyperkalemia; however, he has been recently restarted on spironolactone without much potassium abnormalities. SOCIAL HISTORY: He is , lives with his . Never smoked. Denies any drug use. Denies any alcohol use. Otherwise, he is full code. FAMILY HISTORY: Noncontributory at his age of 83. PHYSICAL EXAMINATION GENERAL: The patient is awake, alert, oriented x3, was noted to be in any acute respiratory distress. VITAL SIGNS: BP was noted to be 118/86, heart rate 60, respiration rate 23, saturating 88% on room air, temperature was noted to be 97 degrees Fahrenheit. HEAD AND NECK: Atraumatic, normocephalic. The patient's right pupil was minimally dilated when compared to the left. Oral mucosa was moist. Neck: Supple. No jugular venous distention. LUNGS: The patient did have bibasilar crackles, but otherwise good air entry. HEART: S1, S2. Regular rate and rhythm. ABDOMEN: Soft, nontender. EXTREMITIES: The patient did have right below-knee amputation and the left lower extremity was cold to touch and was having some minimal edema. DIAGNOSTIC STUDIES/LAB DATA: Labs CBC was showing normal WBC; hemoglobin minimally anemic at 11.4, which compared to his previous labs was noted to be at his baseline; platelet count was within normal limits. Comprehensive metabolic panel shows elevated BUN at 95 and creatinine elevated at 3.38, which compared to his baseline is minimally elevated. Troponin was noted to be 0.14, which seems to be his new normal when compared to his last lab from 04/22/19. B -NILES elevated at 1300. TSH was noted to be elevated at 17.42. Sodium mildly decreased at 130. Random glucose was noted to be minimally elevated at 141. Urinalysis was negative for any leuk esterase or nitrites. EKG showed a paced rhythm at 60 beats per minute when compared to his older EKG , which also showed a paced rhythm at 60 beats per minute, otherwise unchanged morphology. Portable chest x-ray shows mild pulmonary vascular congestion, slightly worse than the chest ray from 04/21/19. Official radiology read is still pending. Pacemaker present on the chest x-ray. IMPRESSION: This is an 83-year-old gentleman with history of diastolic heart failure, comes in again with heart failure and was noted to have some nonspecific symptoms of shoulder pain, and noted to also have minimally elevated troponin at 0.14 and slightly worse creatinine compared to his baseline. ASSESSMENT AND PLAN: 1. Diffuse body aches, likely aging process. We will continue the patient on p.r.n. Tylenol. 2. Acute on chronic diastolic heart failure. We will give a dose of IV bumetanide and restart his home dose of bumetanide starting tomorrow morning and check his I's and O's. 3. Acute on chronic kidney disease, stage 4. Repeat labs in the morning. 4. History of hypothyroidism with elevated TSH. We will check on a free T4 and restart levothyroxine. 5. History of atrial fibrillation. Continue amiodarone and Eliquis. 6. History of diabetes. We will restart his insulin and also check fingerstick sliding scale with a.c., h.s. 7. Elevated troponin likely secondary to decreased urine from his chronic kidney disease, but we will check serial cardiac enzymes to rule out any acute event. 8. DVT prophylaxis. The patient is already on Eliquis. 9. Code status. Full code. [id number]/[facility] #: [id number] [facility]
[2019-05-03] MEDS: Levothyroxine TAB* 75 MCG TAB PO SCH (05:09)
[2019-05-03 06:09] LABS: ABS Eosinophils 0.3 10^3/ul (0-0.6); ABS Lymphocytes 0.4 10^3/ul (1.0-4.8); ABS Monocytes 1.1 10^3/ul (0-0.8); ABS Neutrophils 7.2 10^3/ul (1.5-7.7); Eosinophil % 2.8 %; Hematocrit 33 % (42-52); Hemoglobin 11.1 g/dL (14.0-18.0); Lymphocyte % 4.5 %; Mean Corpuscular HGB Conc 34 g/dL (31-36); Mean Corpuscular Hemoglobin 29 pg (27-31); Mean Corpuscular Volume 85 fL (80-94); Mean Platelet Volume 8.2 fL (7.4-10.4); Platelet Count 165 10^3/uL (150-450); Red Blood Count 3.87 10^6 /uL (4.18-5.48); Red Cell Distribution Width 15 % (10-15)
[2019-05-03 06:15] LABS: BUN/Creatinine Ratio 28.5 (8-20); Calcium 9.4 mg/dL (8.6-10.3); EGFR African American 21.7 (>60); EGFR Non-African American 17.9 (>60); Potassium 4.1 mmol/L (3.5-5.0)
[2019-05-03 06:25] LABS: Troponin I 0.14 ng/mL (<0.03)
[2019-05-03 06:36] LABS: Free T4 0.75 ng/dL (0.61-1.12)
--- NOTE | 2019-05-03 08:08 | PN ---
Subjective Date of Service: 05/03/19 Interval History: HD 2 on 05/03 83 y/o M with history of atrial flutter, AVR with heart block with PPM, HFpEF, ATTR amyloidosis, DM neuropathy and CKD(stage 3) presented with generalized body ache, weight gain and sob. Found to have acute on chronic HF, acute on CKD , elevated troponin. Vitals stable. Sat normal in room air. Patient says he is feeling good today. He states that he came because he felt crappy from body ache. He was having pain in his hips, both shoulders and neck and head for last couple of month. He also adds that he had rotator cuff tear of his both shoulder. He denies increase in extremity swelling, shortness of breath. He sleeps in recliner for last 2 years because of his back pain. Orthopnea could not be assessed. Objective Active Medications: Acetaminophen (Tylenol Tab*) 650 mg PO Q6H PRN PRN Reason: PAIN - MILD Amiodarone HCl (Cordarone Tab*) 200 mg PO DAILY [facility] Apixaban (Eliquis*) 2.5 mg PO BID [facility] Aspirin (Aspirin 81 Mg Chew Tab*) 81 mg PO DAILY [facility] Atorvastatin Calcium (Lipitor*) 80 mg PO QPM [facility] Bumetanide (Bumex Tab*) 6 mg PO DAILY [facility] Calcium/Vitamin D (Oscal D Tab 250/125*) 1 tab PO DAILY [facility] Insulin Glargine (Lantus(*)) 12 units SUBCUT BEDTIME [facility] Last Admin: 05/03/19 01:59 Dose: 12 units Levothyroxine Sodium (Synthroid Tab*) 75 mcg PO DAILY@0600 [facility] Last Admin: 05/03/19 05:09 Dose: 75 mcg Multivitamins/Minerals (Theragran/Minerals Tab*) 1 tab PO DAILY [facility] Nitroglycerin (Nitroglycerin Tab 0.4 Mg*) 0.4 mg SL Q5M PRN PRN Reason: CHEST PAIN Non-Formulary Medication (Tafamidis Meglumine [Vyndaqel]) 80 mg PO BEDTIME [facility] Spironolactone (Aldactone Tab*) 25 mg PO DAILY [facility] Vital Signs - 8 hr 05/03/19 05/03/19 05/03/19 01:00 01:15 03:26 Temperature 98.1 F 97.6 F 97.8 F Pulse Rate 60 59 59 Respiratory 16 16 18 Rate Blood Pressure 112/64 112/52 104/54 (mmHg) O2 Sat by Pulse 93 95 94 Oximetry 05/03/19 05/03/19 07:55 07:59 Temperature 97.8 F Pulse Rate 60 Respiratory 18 16 Rate Blood Pressure 117/51 (mmHg) O2 Sat by Pulse 95 Oximetry Oxygen Devices in Use Now: None Exam: Appearance: NAD, sitting up in bed, alert Eyes: No Scleral Icterus Ears/Nose/Mouth/Throat: NL Teeth, Lips, Gums Neck: NL Appearance and Movements; NL JVP Respiratory: Symmetrical Chest Expansion and Respiratory Effort, Bibasilar crackles heard Cardiovascular: NL Sounds; No Murmurs; No JVD, RRR Extremities: - Left prosthetic leg. On right lower ext- reddish discoloration upto midleg-venous stasis changes with black scab on anterior leg. 1+pitting edema. No tenderness. Neurological: Alert and Oriented x 3, NL Muscle Strength and Tone Result Diagrams: 05/03/19 05:39 05/03/19 05:39 Additional Lab and Data: Lab Results 05/02/19 05/02/19 Range/Units 20:30 20:40 WBC 9.6 (3.5-10.8) 10^3/uL RBC 3.99 L (4.18-5.48) 10^6 /uL Hgb 11.4 L (14.0-18.0) g/dL Hct 34 L (42-52) % MCV 86 (80-94) fL MCH 29 (27-31) pg MCHC 33 (31-36) g/dL RDW 15 (10-15) % Plt Count 175 (150-450) 10^3/uL MPV 7.9 (7.4-10.4) fL Neut % (Auto) 81.7 % Lymph % (Auto) 4.1 % [place] % (Auto) 12.3 % Eos % (Auto) 1.5 % Baso % (Auto) 0.4 % Absolute Neuts (auto) 7.8 H (1.5-7.7) 10^3/ul Absolute Lymphs (auto) 0.4 L (1.0-4.8) 10^3/ul Absolute Monos (auto) 1.2 H (0-0.8) 10^3/ul Absolute Eos (auto) 0.1 (0-0.6) 10^3/ul Absolute Basos (auto) 0.0 (0-0.2) 10^3/ul Absolute Nucleated RBC 0.0 10^3/ul Nucleated RBC % 0.1 Urine Color Straw Urine Appearance Clear Urine pH 7.0 (5-9) Ur Specific [place] 1.004 L (1.010-1.030) Urine Protein Negative (Negative) Urine Ketones Negative (Negative) Urine Blood 1+ A (Negative) Urine Nitrate Negative (Negative) Urine Bilirubin Negative (Negative) Urine Urobilinogen Negative (Negative) Ur Leukocyte Esterase Negative (Negative) Urine Glucose Negative (Negative) Assess/Plan/Problems-Billing Assessment: 83 y/o M with history of atrial flutter, AVR with heart block with PPM, HFpEF, ATTR amyloidosis, DM neuropathy and CKD(stage 3) presented with generalized body ache, weight gain and sob. Found to have acute on chronic HF, acute on CKD , elevated troponin. - Patient Problems (1) Diastolic heart failure Current Visit: No Status: Acute Priority: Medium Code(s): I50.30 - UNSPECIFIED DIASTOLIC (CONGESTIVE) HEART FAILURE SNOMED Code(s): 159483289 Comment: -acute on chronic. -has bibasilar crackles -Xray shows interstitial edema -Got iv bumex in ED -Continue home bumex of 6 mg daily and got 1 dose of bumex today -daily weight and Intake and output -echo done in 04/22 which showed EF of 50-55% with moderated hypokineis of basal -mid myocardium and doppler showed reversible restrictive pattern. -has amyloidosis -he was seen by dr. fierro on [facility] admission and opted for medical mx here and was asked to f/u in [place] given his recent stent placement. -Continue spionolactone and atorvastatin (2) Atrial flutter, paroxysmal Current Visit: No Status: Acute Priority: Medium Code(s): I48.92 - UNSPECIFIED ATRIAL FLUTTER SNOMED Code(s): 501219723 Comment: -rate controlled; aymptomatic -Continue amiodarone for rhythm control. -Continue Eliquis (3) CKD (chronic kidney disease) stage 4, GFR 15-29 ml/min Current Visit: No Status: Acute Priority: Medium Code(s): N18.4 - CHRONIC KIDNEY DISEASE, STAGE 4 (SEVERE) SNOMED Code(s): 615063998 Comment: -acute on chronic -from cardiorenal syndrome -creatinine improving after iv bumex -continue home oral bumex -following Dr. Jackson as outpatient (4) Elevated troponin Current Visit: No Status: Acute Code(s): R79.89 - OTHER SPECIFIED ABNORMAL FINDINGS OF BLOOD CHEMISTRY SNOMED Code(s): 222010083 Comment: -could be demand -downtrending now -will decrease slowly given his CKD -asymptomatic (5) Hypertension Current Visit: No Status: Acute Code(s): I10 - ESSENTIAL (PRIMARY) HYPERTENSION SNOMED Code(s): 55895268 Comment: -On spironolacttone and bumex (6) Hypothyroidism (acquired) Current Visit: No Status: Acute Priority: Medium Code(s): E03.9 - HYPOTHYROIDISM, UNSPECIFIED SNOMED Code(s): 256746132 Comment: -TSh of 17. -was 26 10 days ago-so improving -Continue levothyroxine 75 mcg. (7) Type 2 diabetes mellitus Current Visit: No Status: Chronic Comment: - Continue insulin glargine (8) DVT prophylaxis Current Visit: No Status: Acute Priority: Low Code(s): XQC8696 - SNOMED Code(s): 516626859 Comment: - On eliquis (9) Full code status Current Visit: No Status: Acute Code(s): Z78.9 - OTHER SPECIFIED HEALTH STATUS SNOMED Code(s): 923069187 Status and Disposition: Inpatient Attending: Dian Finn Attestation Documenting Resident: Adelfo Baez Supervising Physician: Dian Finn Attestation: This service has been performed in part by a resident under the direction of a teaching physician.I, Dian Finn, performed the service, or was physically present during the critical, or pang portions of the service, furnished by the resident. I participated in the management of the patient.
[2019-05-03] MEDS: Multivitamins/Minerals TAB PO SCH (08:12)
[2019-05-03] MEDS: Apixaban* 2.5 MG TAB PO SCH ×2 (08:12→22:09)
[2019-05-03] MEDS: Spironolactone TAB* 25 MG PO SCH (08:12)
[2019-05-03] MEDS: Aspirin 81 mg CHEW TAB* 81 MG TAB.CHEW PO SCH (08:12)
[2019-05-03] MEDS: Bumetanide TAB* 2 MG PO SCH (08:12)
[2019-05-03] MEDS: Amiodarone TAB* 200 MG PO SCH (08:12)
[2019-05-03] MEDS: Calcium/Vitamin D TAB 250/125* TAB PO SCH (08:12)
[2019-05-03 09:31] LABS: Troponin I 0.14 ng/mL (<0.03)
[2019-05-03] MEDS ORDERED: Bumetanide IV* 0.25 MG/ML 4 ML VIAL SLOW PUSH ONE (10:00)
[2019-05-03 12:07] LABS: Troponin I 0.12 ng/mL (<0.03)
[2019-05-03] MEDS ORDERED: Atorvastatin* 80 MG TAB PO SCH (18:00)
--- NOTE | 2019-05-03 18:38 | CONSULT ---
Subjective Date of Service: 05/03/19 Family History: Unchanged from Admission Social History: Unchanged from Admission Past Medical History: Unchanged from Admission Review of Systems - Measurements Intake and Output: Intake and Output Last 24 Hours 05/01/19 05/02/19 05/03/19 05/04/19 06:59 06:59 06:59 06:59 Intake Total 480 1740 Output Total 2650 2475 Balance -2170 -735 Weight 183 lb 11.2 oz Intake: Oral 480 1740 Output: Urine 2650 2475 Other: # Voids 2 Objective Active Medications: Acetaminophen (Tylenol Tab*) 650 mg PO Q6H PRN PRN Reason: PAIN - MILD Amiodarone HCl (Cordarone Tab*) 200 mg PO DAILY [facility] Last Admin: 05/03/19 08:12 Dose: 200 mg Apixaban (Eliquis*) 2.5 mg PO BID [facility] Last Admin: 05/03/19 08:12 Dose: 2.5 mg Aspirin (Aspirin 81 Mg Chew Tab*) 81 mg PO DAILY [facility] Last Admin: 05/03/19 08:12 Dose: 81 mg Atorvastatin Calcium (Lipitor*) 80 mg PO QPM [facility] Last Admin: 05/03/19 17:07 Dose: 80 mg Bumetanide (Bumex Tab*) 6 mg PO DAILY [facility] Last Admin: 05/03/19 08:12 Dose: 6 mg Calcium/Vitamin D (Oscal D Tab 250/125*) 1 tab PO DAILY [facility] Last Admin: 05/03/19 08:12 Dose: 1 tab Insulin Glargine (Lantus(*)) 12 units SUBCUT BEDTIME [facility] Last Admin: 05/03/19 01:59 Dose: 12 units Levothyroxine Sodium (Synthroid Tab*) 75 mcg PO DAILY@0600 [facility] Last Admin: 05/03/19 05:09 Dose: 75 mcg Multivitamins/Minerals (Theragran/Minerals Tab*) 1 tab PO DAILY [facility] Last Admin: 05/03/19 08:12 Dose: 1 tab Nitroglycerin (Nitroglycerin Tab 0.4 Mg*) 0.4 mg SL Q5M PRN PRN Reason: CHEST PAIN Non-Formulary Medication (Tafamidis Meglumine [Vyndaqel]) 80 mg PO BEDTIME [facility] Spironolactone (Aldactone Tab*) 25 mg PO DAILY [facility] Last Admin: 05/03/19 08:12 Dose: 25 mg Vital Signs - 8 hr 05/03/19 05/03/19 11:15 15:15 Temperature 97.7 F 98.5 F Pulse Rate 60 59 Respiratory 16 16 Rate Blood Pressure 127/57 122/49 (mmHg) O2 Sat by Pulse 97 98 Oximetry Oxygen Devices in Use Now: None Result Diagrams: 05/03/19 05:39 05/03/19 05:39 Additional Lab and Data: Lab Results 05/02/19 05/02/19 Range/Units 20:30 20:40 WBC 9.6 (3.5-10.8) 10^3/uL RBC 3.99 L (4.18-5.48) 10^6 /uL Hgb 11.4 L (14.0-18.0) g/dL Hct 34 L (42-52) % MCV 86 (80-94) fL MCH 29 (27-31) pg MCHC 33 (31-36) g/dL RDW 15 (10-15) % Plt Count 175 (150-450) 10^3/uL MPV 7.9 (7.4-10.4) fL Neut % (Auto) 81.7 % Lymph % (Auto) 4.1 % [place] % (Auto) 12.3 % Eos % (Auto) 1.5 % Baso % (Auto) 0.4 % Absolute Neuts (auto) 7.8 H (1.5-7.7) 10^3/ul Absolute Lymphs (auto) 0.4 L (1.0-4.8) 10^3/ul Absolute Monos (auto) 1.2 H (0-0.8) 10^3/ul Absolute Eos (auto) 0.1 (0-0.6) 10^3/ul Absolute Basos (auto) 0.0 (0-0.2) 10^3/ul Absolute Nucleated RBC 0.0 10^3/ul Nucleated RBC % 0.1 Urine Color Straw Urine Appearance Clear Urine pH 7.0 (5-9) Ur Specific [place] 1.004 L (1.010-1.030) Urine Protein Negative (Negative) Urine Ketones Negative (Negative) Urine Blood 1+ A (Negative) Urine Nitrate Negative (Negative) Urine Bilirubin Negative (Negative) Urine Urobilinogen Negative (Negative) Ur Leukocyte Esterase Negative (Negative) Urine Glucose Negative (Negative) Skin Deviation Note - Skin Deviation Findings Left medial lower leg - left lateral lower leg - Left medial 1st toe - Wound Problem/Plan Assessment: 1. Left LE venous stasis ulcers. Recommend washing the leg with soap and water. Apply antibiotic ointment to the scabbed areas, apply a telfa over the blister on the medial aspect of the leg, and lotion to the intact skin, followed by rolled gauze. Consider obtaining repeat ABIs. 2. Left 1st toe diabetic ulcer. Recommend washing the foot with soap and water. Apply antibiotic ointment to the wound, followed by telfa and rolled gauze, change daily. Recommend obtaining ABIs to evaluate circulation. 3. DM2. 4. 5. Diet. 6. Code Status. Full Code Status. 7. Disposition. Inpatient, disposition per primary medicine team. TIME SPENT: Time for this wound consult was 20 minutes and 10 minutes was spent with the patient discussing past medical history; assessing, measuring, and photographing the wounds. Is Patient a Wound Clinic Patient: No Comment: Has seen them in the past Attending: Arlene Martini
[2019-05-03] MEDS ORDERED: TAFAMIDIS MEGLUMINE PO SCH (21:00)
[2019-05-04] MEDS: Levothyroxine TAB* 75 MCG TAB PO SCH (05:31)
[2019-05-04 05:34] LABS: ABS Basophils 0.1 10^3/ul (0-0.2); ABS Eosinophils 0.2 10^3/ul (0-0.6); ABS Lymphocytes 0.3 10^3/ul (1.0-4.8); ABS Monocytes 1.3 10^3/ul (0-0.8); Eosinophil % 2.5 %; Hematocrit 32 % (42-52); Hemoglobin 10.8 g/dL (14.0-18.0); Lymphocyte % 3.1 %; Mean Corpuscular HGB Conc 34 g/dL (31-36); Mean Corpuscular Hemoglobin 29 pg (27-31); Mean Corpuscular Volume 85 fL (80-94); Mean Platelet Volume 7.7 fL (7.4-10.4); Platelet Count 166 10^3/uL (150-450); Red Blood Count 3.77 10^6 /uL (4.18-5.48); Red Cell Distribution Width 15 % (10-15); White Blood Count 8.8 10^3/uL (3.5-10.8)
[2019-05-04 05:49] LABS: Calcium 9.2 mg/dL (8.6-10.3); EGFR African American 25.6 (>60); EGFR Non-African American 21.2 (>60)
--- NOTE | 2019-05-04 07:14 | PN ---
Subjective Date of Service: 05/04/19 Interval History: HD 3 on 05/04 83 y/o M with history of atrial flutter, AVR with heart block with PPM, HFpEF, ATTR amyloidosis, DM neuropathy and CKD(stage 3) presented with generalized body ache, weight gain and sob. Found to have acute on chronic HF, acute on CKD , elevated troponin. Improving No acute overnight events Vitals stable patient doenot have any complaint at present. He denies pain, difficulty in breathing Objective Active Medications: Acetaminophen (Tylenol Tab*) 650 mg PO Q6H PRN PRN Reason: PAIN - MILD Amiodarone HCl (Cordarone Tab*) 200 mg PO DAILY [facility] Last Admin: 05/03/19 08:12 Dose: 200 mg Apixaban (Eliquis*) 2.5 mg PO BID [facility] Last Admin: 05/03/19 22:09 Dose: 2.5 mg Aspirin (Aspirin 81 Mg Chew Tab*) 81 mg PO DAILY [facility] Last Admin: 05/03/19 08:12 Dose: 81 mg Atorvastatin Calcium (Lipitor*) 80 mg PO QPM [facility] Last Admin: 05/03/19 17:07 Dose: 80 mg Bumetanide (Bumex Tab*) 6 mg PO DAILY [facility] Last Admin: 05/03/19 08:12 Dose: 6 mg Calcium/Vitamin D (Oscal D Tab 250/125*) 1 tab PO DAILY [facility] Last Admin: 05/03/19 08:12 Dose: 1 tab Insulin Glargine (Lantus(*)) 12 units SUBCUT BEDTIME [facility] Last Admin: 05/03/19 22:10 Dose: 12 units Levothyroxine Sodium (Synthroid Tab*) 75 mcg PO DAILY@0600 [facility] Last Admin: 05/04/19 05:31 Dose: 75 mcg Multivitamins/Minerals (Theragran/Minerals Tab*) 1 tab PO DAILY [facility] Last Admin: 05/03/19 08:12 Dose: 1 tab Nitroglycerin (Nitroglycerin Tab 0.4 Mg*) 0.4 mg SL Q5M PRN PRN Reason: CHEST PAIN Non-Formulary Medication (Tafamidis Meglumine [Vyndaqel]) 80 mg PO BEDTIME [facility] Last Admin: 05/03/19 22:12 Dose: Not Given Spironolactone (Aldactone Tab*) 25 mg PO DAILY [facility] Last Admin: 12/03/19 08:12 Dose: 25 mg Vital Signs - 8 hr 05/04/19 05/04/19 00:27 03:47 Temperature 98.7 F 98.0 F Pulse Rate 56 59 Respiratory 20 12 Rate Blood Pressure 124/49 105/41 (mmHg) O2 Sat by Pulse 95 94 Oximetry Oxygen Devices in Use Now: None Exam: Appearance: NAD, sitting up in bed, alert Eyes: No Scleral Icterus Ears/Nose/Mouth/Throat: NL Teeth, Lips, Gums Neck: NL Appearance and Movements; NL JVP Respiratory: Symmetrical Chest Expansion and Respiratory Effort, Bibasilar crackles heard Cardiovascular: NL Sounds; No Murmurs; No JVD, RRR Extremities: - Right prosthetic leg. On left lower ext- reddish discoloration upto midleg-venous stasis changes with black scab on anterior leg. 1+pitting edema. No tenderness. Neurological: Alert and Oriented x 3, NL Muscle Strength and Tone Result Diagrams: 05/04/19 04:59 05/04/19 04:59 Additional Lab and Data: Lab Results 05/02/19 05/02/19 Range/Units 20:30 20:40 WBC 9.6 (3.5-10.8) 10^3/uL RBC 3.99 L (4.18-5.48) 10^6 /uL Hgb 11.4 L (14.0-18.0) g/dL Hct 34 L (42-52) % MCV 86 (80-94) fL MCH 29 (27-31) pg MCHC 33 (31-36) g/dL RDW 15 (10-15) % Plt Count 175 (150-450) 10^3/uL MPV 7.9 (7.4-10.4) fL Neut % (Auto) 81.7 % Lymph % (Auto) 4.1 % [place] % (Auto) 12.3 % Eos % (Auto) 1.5 % Baso % (Auto) 0.4 % Absolute Neuts (auto) 7.8 H (1.5-7.7) 10^3/ul Absolute Lymphs (auto) 0.4 L (1.0-4.8) 10^3/ul Absolute Monos (auto) 1.2 H (0-0.8) 10^3/ul Absolute Eos (auto) 0.1 (0-0.6) 10^3/ul Absolute Basos (auto) 0.0 (0-0.2) 10^3/ul Absolute Nucleated RBC 0.0 10^3/ul Nucleated RBC % 0.1 Urine Color Straw Urine Appearance Clear Urine pH 7.0 (5-9) Ur Specific [place] 1.004 L (1.010-1.030) Urine Protein Negative (Negative) Urine Ketones Negative (Negative) Urine Blood 1+ A (Negative) Urine Nitrate Negative (Negative) Urine Bilirubin Negative (Negative) Urine Urobilinogen Negative (Negative) Ur Leukocyte Esterase Negative (Negative) Urine Glucose Negative (Negative) Assess/Plan/Problems-Billing Assessment: 83 y/o M with history of atrial flutter, AVR with heart block with PPM, HFpEF, ATTR amyloidosis, DM neuropathy and CKD(stage 3) presented with generalized body ache, weight gain and sob. Found to have acute on chronic HF, acute on CKD , elevated troponin. - Patient Problems (1) Diastolic heart failure Status: Acute Priority: Medium Code(s): I50.30 - UNSPECIFIED DIASTOLIC ( CONGESTIVE) HEART FAILURE SNOMED Code(s): 641127588 Comment: -acute on chronic. -has bibasilar crackles- improving -Xray shows interstitial edema -Got iv bumex in ED -Continue home bumex of 6 mg daily and got 1 dose of bumex today -daily weight and Intake and output -echo done in 04/22 which showed EF of 50-55% with moderated hypokineis of basal -mid myocardium and doppler showed reversible restrictive pattern. -has amyloidosis -he was seen by dr. fierro on [facility] admission and opted for medical mx here and was asked to f/u in [place] given his recent stent placement. -Continue spionolactone and atorvastatin -dc on bumex 6 mg (2) Atrial flutter, paroxysmal Status: Acute Priority: Medium Code(s): I48.92 - UNSPECIFIED ATRIAL FLUTTER SNOMED Code(s): 099734595 Comment: -rate controlled; aymptomatic -Continue amiodarone for rhythm control. -Continue Eliquis (3) CKD (chronic kidney disease) stage 4, GFR 15-29 ml/min Status: Acute Priority: Medium Code(s): N18.4 - CHRONIC KIDNEY DISEASE, STAGE 4 (SEVERE) SNOMED Code(s): 020455982 Comment: -acute on chronic -from cardiorenal syndrome -creatinine improving after iv bumex- on baseline today -continue home oral bumex -following Dr. Jackson as outpatient (4) Elevated troponin Status: Acute Code(s): R79.89 - OTHER SPECIFIED ABNORMAL FINDINGS OF BLOOD CHEMISTRY SNOMED Code(s): 815964967 Comment: -could be demand -downtrending now -will decrease slowly given his CKD -asymptomatic (5) Hypertension Status: Acute Code(s): I10 - ESSENTIAL (PRIMARY) HYPERTENSION SNOMED Code(s) : 56242986 Comment: -On spironolacttone and bumex (6) Hypothyroidism (acquired) Status: Acute Priority: Medium Code(s): E03.9 - HYPOTHYROIDISM, UNSPECIFIED SNOMED Code(s): 870021934 Comment: -TSh of 17. -was 26 10 days ago-so improving -Continue levothyroxine 75 mcg. (7) Type 2 diabetes mellitus Status: Chronic Comment: - Continue insulin glargine (8) Leg ulcer Status: Acute Code(s): L97.909 - NON-PRS CHRONIC ULC UNSP PRT OF UNSP LOW LEG W UNSP SEVERITY SNOMED Code(s): 90077189 Comment: -has chronic venous changes in left leg with scab and ulcer. -from chronic venous changes and some component of neuropathy from diabetes as well. -Wound consult appreciated-recommends OLAF -has right leg prosthesis (9) DVT prophylaxis Status: Acute Priority: Low Code(s): ENR9041 - SNOMED Code(s): 956874447 Comment: - On eliquis (10) Full code status Status: Acute Code(s): Z78.9 - OTHER SPECIFIED HEALTH STATUS SNOMED Code(s) : 883524896 Status and Disposition: Inpatient dc today Attending: Dian Finn Attestation Documenting Resident: Adelfo Baez Supervising Physician: Dian Finn Attestation: This service has been performed in part by a resident under the direction of a teaching physician.I, Dian Finn, performed the service, or was physically present during the critical, or pang portions of the service, furnished by the resident. I participated in the management of the patient.
[2019-05-04] MEDS: Calcium/Vitamin D TAB 250/125* TAB PO SCH (10:22)
[2019-05-04] MEDS: Spironolactone TAB* 25 MG PO SCH (10:22)
[2019-05-04] MEDS: Aspirin 81 mg CHEW TAB* 81 MG TAB.CHEW PO SCH (10:22)
[2019-05-04] MEDS: Bumetanide TAB* 2 MG PO SCH (10:22)
[2019-05-04] MEDS: Apixaban* 2.5 MG TAB PO SCH (10:22)
[2019-05-04] MEDS: Amiodarone TAB* 200 MG PO SCH (10:22)
[2019-05-04] MEDS: Multivitamins/Minerals TAB PO SCH (10:22)
[2019-05-04 12:00] VITALS: BP 127/44
[2019-05-04 15:35] LABS: Phosphorus 4.2 mg/dL (2.5-5.0)
--- NOTE | 2019-05-04 21:42 | DS ---
CC: Arley Harp MD; Dr. Jackson; Nancy Bradford NP * DISCHARGE SUMMARY: DATE OF ADMISSION: 05/02/19 DATE OF DISCHARGE: 05/04/19 PRIMARY CARE PHYSICIAN: Arley Harp MD TECHNOLOGY RECRUITER: Dr. Jackson. PRIMARY DIAGNOSES: 1. Acute on chronic diastolic heart failure. 2. Chronic venous ulcer. 3. Acute on chronic kidney disease. CONSULTS: Nancy Bradford NP, Wound Care. DISCHARGE MEDICATIONS: 1. Bumetanide 6 mg daily. 2. Spironolactone 25 mg daily. 3. Aspirin 81 mg daily. 4. Apixaban 2.5 mg twice a day. 5. Atorvastatin 80 mg daily. 6. Amiodarone 200 mg daily. 7. Insulin glargine 12 units at bedtime. 8. Levothyroxine 75 mcg in the morning. 9. Nitroglycerin 0.4 sublingual every 5 minutes as needed for chest pain. 10. Tafamidis 80 mg at bedtime. 11. Multivitamin 1 tablet daily. 12. Vitamin D and calcium 1 tablet daily. HISTORY OF PRESENT ILLNESS: Mr. Méndez is an 83-year-old man with A-flutter, on amiodarone and apixaban; ATTR amyloid; aortic valve replacement; heart block, status post pacemaker; heart failure, preserved ejection fraction; restrictive cardiomyopathy, who is presenting with back pain and weight gain. He reports that he uses a walker to ambulate and he notes that after significant use of the walker, for example, to walk 150 feet to his mailbox, he experiences back pain that eventually progresses to include shoulder and neck pain. He states that this has been happening for months and nothing has changed recently. He also reports that he has gained a few pounds at home. A few days ago, his outpatient open developer operator increased his Bumex dose from 4 mg to 6 mg. Despite this change, he has gained water weight, although he does deny lower extremity edema or shortness of breath. He states he always sleeps sitting up in a chair given his back pain, so he is unsure if he has orthopnea. HOSPITAL COURSE: In the emergency room, the patient was given Bumex IV 1 mg and admitted to the medical service for I's and O's with daily weights. The next morning, he was given another IV dose of Bumex and reports good urine output. Of note, his creatinine was increased on admission at 3.38 from a baseline in the 2s; however , his creatinine decreased in response to IV Bumex. His presenting weight is recorded in the ER as 187 and 2 days later 179, although it is unclear the accuracy of these weights, he is net negative approximately 4.5 L over 3 days of admission. He was transitioned back to his home Bumex dose of 6 mg daily. Also of note, a wound care consult was called for left lower extremity wounds that the patient reports are very chronic in nature. It is likely that these are from venous stasis ulcers as well as a diabetic ulcer on the first toe. It was recommended to repeat ABIs to expedite outpatient followup. On day of discharge, the patient underwent a duplex artery scan of his left lower extremity, which showed diffuse atherosclerosis without evidence for hemodynamically significant stenosis at or above the knee; however, there appeared to be an occlusion of the mid posterior tibial artery, which is reconstituted distally. The anterior tibial artery appeared completely occluded. These findings can be further evaluated at CT angiogram of the aorta and lower extremities. The patient had no new lower extremity complaints and reports that his wounds appear at their baseline. He elected to follow up these findings in clinic. On day of discharge, the patient reports that he feels back to his baseline and that he has a nephrology appointment scheduled for the next day. PERTINENT DIAGNOSTIC STUDIES: CBC notable for hemoglobin 11, which is near the patient's baseline with MCV 86. Creatinine decreased from 3.38 to 2.88. BNP was over 1300. Troponin peaked at 0.14, which appears chronic. TSH was 17, which is decreased from 26 two weeks ago. LFTs were unremarkable. Chest x-ray with findings suggestive of congestive heart failure. Left lower extremity duplex scan with diffuse atherosclerosis. There appears to be occlusion of the mid posterior tibial artery, which is reconstituted distally. The anterior tibial artery appeared completely occluded. There is no evidence for hemodynamically significant stenosis at or above the knee. These findings can be further evaluated at CT angiogram of the aorta and lower extremities. DISCHARGE PLAN: The patient is to follow up with his primary care physician and Dr. Hedy Jackson of Nephrology. He reports he has appointments with each of these physicians in the following days. His outpatient primary care physician should consider ordering further testing for the patient's peripheral artery disease and possibly a vascular clinic referral. The patient should continue to monitor his weights daily at home. He had no significant medication changes to this admission. Wound care consult recommended to apply antibiotic ointment to venous stasis ulcers over left lower extremity with Telfa over the blister on the medial aspect of the leg. For the patient's first toe diabetic ulcer, it was recommended to wash with soap and water, apply antibiotic ointment to the wound with Telfa and rolled gauze change daily. The patient is to eat a healthy diet, low in sugars and processed foods and resume activity as tolerated. He was given return precautions, which include, but are not limited to dyspnea on exertion, worsening lower extremity edema, fevers and chills. DISPOSITION: To home. CONDITION: Improved. TIME SPENT: Approximately 60 minutes was spent on discharge of this patient, more than half of which was spent with care coordination at bedside for interview and exam. [id number]/CPS #: [id number] KUSUM
== END 2019-05-04 16:42 | disposition home or self-care (01) | DRG 291 ==
LOC: ED 17:03 → MEDTELE 23:33
PROVIDERS: ADMIT Internal Medicine; ATTEND Internal Medicine
DX: 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 disease with heart failure and stage 1 through stage 4 chronic kidney disease, or unspecified chronic kidney disease (principal); I50.33 Acute on chronic diastolic (congestive) heart failure; N18.4 Chronic kidney disease, stage 4 (severe); N17.9 Acute kidney failure, unspecified; E85.9 Amyloidosis, unspecified; I48.92 Unspecified atrial flutter; L97.929 Non-pressure chronic ulcer of unspecified part of left lower leg with unspecified severity; I42.5 Other restrictive cardiomyopathy; E11.40 Type 2 diabetes mellitus with diabetic neuropathy, unspecified; I48.0 Paroxysmal atrial fibrillation; E11.22 Type 2 diabetes mellitus with diabetic chronic kidney disease; I25.10 Atherosclerotic heart disease of native coronary artery without angina pectoris; E11.51 Type 2 diabetes mellitus with diabetic peripheral angiopathy without gangrene; E03.9 Hypothyroidism, unspecified; H54.3 Unqualified visual loss, both eyes; R79.89 Other specified abnormal findings of blood chemistry; E78.00 Pure hypercholesterolemia, unspecified; M19.90 Unspecified osteoarthritis, unspecified site; E11.42 Type 2 diabetes mellitus with diabetic polyneuropathy; I45.9 Conduction disorder, unspecified; I87.8 Other specified disorders of veins; E11.621 Type 2 diabetes mellitus with foot ulcer; L97.529 Non-pressure chronic ulcer of other part of left foot with unspecified severity; Z95.0 Presence of cardiac pacemaker; Z95.2 Presence of prosthetic heart valve; Z95.5 Presence of coronary angioplasty implant and graft; Z89.511 Acquired absence of right leg below knee; Z88.8 Allergy status to other drugs, medicaments and biological substances; Z88.6 Allergy status to analgesic agent; Z28.21 Immunization not carried out because of patient refusal; Z79.82 Long term (current) use of aspirin; Z79.899 Other long term (current) drug therapy; Z79.890 Hormone replacement therapy; Z79.01 Long term (current) use of anticoagulants; Z79.4 Long term (current) use of insulin
CPT/HCPCS: 36415; 71045; 80048; 80053; 81003; 81015; 83605; 83735; 83880; 84100; 84439; 84443; 84484; 85025; 93005; 99284; A9270-GY; G8978-GP-CI; G8979-GP-CI; G8980-GP-CI

== ENCOUNTER 2019-07-02 18:07 | Inpatient (IN) | payer MEDICARE, BC ==
--- NOTE | 2019-07-02 18:36 | ED ---
HPI Chest Pain - HPI Summary HPI Summary: This patient is an 84 year old male brought in by EMS presenting to [facility] with a chief complaint of left-sided chest pain and SOB. He states it is worse with exertion. He states he was discharged from [facility] due to fluid buildup due to CHF. He rates his pain 9/10 in severity. He states his seaweed harvester is Dr. Hill. He denies nausea/vomiting. He reports headache. - History of Current Complaint Chief Complaint: EDChestPainROMI Time Seen by Provider: 07/02/19 18:20 Hx Obtained From: Patient Onset/Duration: Started Hours Ago Pain Intensity: 9 Pain Scale Used: 0-10 Numeric Chest Pain Location: Left Anterior Associated Signs and Symptoms: Positive: Shortness of Breath - Additional Pertinent History Primary Care Physician: JUVENCIO - Allergy/Home Medications Allergies/Adverse Reactions: Allergies Allergy/AdvReac Type Severity Reaction Status Date / Time furosemide Allergy Mild Rash Verified 05/02/19 17:09 tramadol Allergy Mild Dizziness Verified 05/02/19 17:09 KATHRYN Inhibitors Allergy Unknown Verified 05/02/19 17:09 Reaction Details Beta-Blockers Allergy See Comment Verified 07/02/19 19:13 (Beta-Adrenergic Bloc spironolactone Allergy See Comment Verified 05/02/19 17:09 valsartan Allergy Unknown Verified 05/02/19 17:09 Reaction Details Home Medications: Home Medications Aspirin [Aspirin EC] 81 mg PO DAILY 07/02/19 [History Confirmed 07/02/19] Docusate Sodium 100 mg PO BID PRN 07/02/19 [History Confirmed 07/02/19] Levothyroxine TAB* [Synthroid TAB*] 125 mcg PO DAILY@0600 07/02/19 [History Confirmed 07/02/19] Tamsulosin HCl 0.4 mg PO DAILY 07/02/19 [History Confirmed 07/02/19] PMH/Surg Hx/FS Hx/Imm Hx Endocrine/Hematology History: Reports: Hx Anticoagulant Therapy - Eliquis, Hx Diabetes, Other Endocrine/Hematological Disorders - Amyloidosis Denies: Hx Blood Disorders, Hx Blood Transfusions, Hx Bone Marrow Disease, Hx Systemic Lupus Erythematosus, Hx Sickle Cell Disease, Hx Thyroid Disease, Hx Anemia, Hx Unexplained Bleeding Cardiovascular History: Reports: Hx Angina, Hx Atrial Fibrillation, Hx Auto Implanted Cardiovert Defib, Hx Congestive Heart Failure, Hx Coronary Artery Disease, Hx Hypercholesterolemia, Hx Hypertension, Hx Pacemaker/ICD, Hx Valvular Heart Disease, Other Cardiovascular Problems/Disorders - pacer, and cardioversion for aflutter with stents and valve replacement Denies: Hx Aneurysm, Hx Angioplasty, Hx Cardiac Arrest, Hx Cardiomegaly, Hx Congenital Heart Disease, Hx Deep Vein Thrombosis, Hx Embolism, Hx Hypotension, Hx Myocardial Infarction, Hx Peripheral Vascular Disease, Hx Rheumatic Fever, Hx Syncope Respiratory History: Reports: Hx Pneumonia Denies: Hx Asthma, Hx Bronchopulmonary Dysplasia, Hx Chronic Bronchitis, Hx Chronic Obstructive Pulmonary Disease (COPD), Hx Cystic Fibrosis, Hx Lung Cancer , Hx Pleural Effusion, Hx Pulmonary Edema, Hx Pulmonary Embolism, Hx Seasonal Allergies, Hx Sleep Apnea, Other Respiratory Problems/Disorders - DENIES GI History: Reports: Hx Gastrointestinal Bleed Denies: Hx Cirrhosis, Hx Crohn's Disease, Hx Diverticulosis, Hx Gall Bladder Disease, Hx Gastroesophageal Reflux Disease, Hx Hiatal Hernia, Hx Irritable Bowel, Hx Jaundice, Hx Obstructive Bowel, Hx Ileostomy, Hx Pyloric Stenosis, Hx Ulcer, Other GI Disorders History: Reports: Hx Chronic Renal Failure, Hx Renal Disease, Other Problems/Disorders - chronic kidney dx Denies: Hx Acute Renal Failure, Hx Benign Prostatic Hyperplasia, Hx Dialysis , Hx Kidney Infection, Hx Kidney Stones Musculoskeletal History: Reports: Hx Arthritis, Other Musculoskeletal History - right BKA Denies: Hx Back Problems, Hx Bursitis, Hx Congenital Bone Abnormalities, Hx Fibromyalgia, Hx Gout, Hx Orthopedic Injury, Hx Osteoporosis, Hx Scoliosis, Hx Tendonitis Sensory History: Reports: Hx Contacts or Glasses, Other Sensory Impairments - diabetic retinopathy Denies: Hx Cataracts, Hx Eye Injury, Hx Eye Prosthesis, Hx Glaucoma, Hx Legally Blind, Hx Macular Degeneration, Hx Vision Problem, Hx Deafness, Hx Hearing Aid, Hx Hearing Problem Opthamlomology History: Reports: Hx Contacts or Glasses, Other Sensory Impairments - diabetic retinopathy Denies: Hx Cataracts, Hx Eye Injury, Hx Eye Prosthesis, Hx Glaucoma, Hx Legally Blind, Hx Macular Degeneration, Hx Vision Problem Neurological History: Reports: Hx Peripheral Neuropathy, Other Neuro Impairments /Disorders - Guillain-Dickerson Syndrome , neuropathy Denies: Hx Dementia, Hx Developmental Delay, Hx Headaches, Hx Migraine, Hx Nerve Disease, Hx Seizures, Hx Spinal Cord Injury, Hx Transient Ischemic Attacks (TIA) Psychiatric History: Denies: Hx Anxiety, Hx Attention Deficit Hyperactivity Disorder, Hx Autism, Hx Eating Disorder, Hx Oppositional [place] Disorder, Hx Depression, Hx Panic Disorder, Hx Post Traumatic Stress Disorder, Hx Inpatient Treatment, Hx Community Mental Health Tx, Hx Schizophrenia, Hx Bipolar Disorder, Hx Suicide Attempt, Hx of Violent Episodes Against Others, Other Psychiatric Issues/ Disorders - pt denies - Surgical History Surgery Procedure, Year, and Place: RIGHT LEG AMPUTATION, BILAT ROTATOR CUFFS, Pacemaker, cardiac stent Hx Anesthesia Reactions: No Infectious Disease History: No Infectious Disease History: Denies: Hx Clostridium Difficile, Hx Hepatitis, Hx Human Immunodeficiency Virus (HIV), Hx of Known/Suspected MRSA, Hx Shingles, Hx Tuberculosis, Hx Known/ Suspected VRE, Hx Known/Suspected VRSA, History Other Infectious Disease, Traveled Outside the [place] in Last 30 Days - Family History Known Family History: Positive: Unknown - Adopted Family History: Unknown - pt is adopted - Social History Alcohol Use: None Hx Substance Use: No Substance Use Type: Reports: None Hx Tobacco Use: No Smoking Status (MU): Never Smoked Tobacco Have You Smoked in the Last Year: No Review of Systems Positive: Chest Pain Positive: Shortness Of Breath Negative: Vomiting, Nausea Positive: Headache All Other Systems Reviewed And Are Negative: Yes Physical Exam - Summary Physical Exam Summary: Constitutional: Appears lethargic, but arousable, answering questions appropriately. Skin: Warm, Dry HENT: Normocephalic; Atraumatic Eyes: Conjunctiva normal. Pupils unequal (presumed baseline Hx of bilateral cataract surgery) Neck: Musculoskeletal ROM normal neck. (-) JVD, (-) Stridor, (-) Tracheal deviation Cardio: Rhythm regular, rate normal, Heart sounds normal; Intact distal pulses; Radial pulses are 2+ and symmetric. (-) Murmur Pulmonary/Chest wall: Effort normal. (-) Respiratory distress, (-) Wheezes, faint crackles bilaterally. Abd: Soft, (-) tenderness, (-) Distension, (-) Guarding, (-) Rebound Musculoskeletal: (-) Edema. Right BKA. Left foot: clear blister over medial heel. Rupture blister of medial ankle. Lymph: (-) Cervical adenopathy Neuro: Alert, Oriented x3 Psych: Mood and affect Normal Triage Information Reviewed: Yes Vital Signs On Initial Exam: Initial Vitals Temp Pulse Resp BP Pulse Ox 96.8 F 75 13 98/53 98 07/02/19 18:17 07/02/19 18:17 07/02/19 18:17 07/02/19 18:17 07/02/19 18:17 Vital Signs Reviewed: Yes Procedures - Sedation Patient Received Moderate/Deep Sedation with Procedure: No Diagnostics - Vital Signs Vital Signs Temp Pulse Resp BP Pulse Ox 07/02/19 18:17 96.8 F 75 13 98/53 98 - Laboratory Result Diagrams: 07/02/19 18:50 07/02/19 18:50 Lab Statement: Any lab studies that have been ordered have been reviewed, and results considered in the medical decision making process. - Radiology CXR Radiology Interpretation Completed By: ED Physician Summary of Radiographic Findings: Right lower lobe consolidation. Pending official radiologist report. - EKG 1815 Cardiac Rate: NL - 76 BPM Summary of EKG Findings: Ventricular paced rhythm. Similar to EKG from 05/02/19. Dr. Chang has reviewed and interpreted this EKG. Chest Pain Course/Dx - Course Course Of Treatment: This patient is an 84 year old male presenting to [facility] with a chief complaint of left-sided chest pain and SOB. Labs reveal WBC 13.1 H , RBC 3.55 L, Hgb 9.0 L, Hct 29 L, MCH 25 L, RDW 19 H, ABG pO2 104H, Sodium 125 L, Chloride 90 L, BUN 117 H, Creatinine 3.35 H, BUN/Creatinine Ration 34.9 H, Glucose 214 H, POC Glucose 223 H, AST 69 H, ALT 107 H, Alkaline Phosphatase 111 H, Troponin I 0.47 H, BNP > 1300, Total Protein 5.9 L, Albumin 3.1 L. CXR reveals Right lower lobe consolidation. Spoke with Dr. Rodríguez, Hospitalist, who accepted the patient fro admission to the hospital. Plan for admission was discussed with the patient and he was agreeable with this plan. - Diagnoses Provider Diagnoses: Chest pain, Hyponatremia, Chronic renal insufficiency, Pneumonia, CHF ( congestive heart failure), Elevated troponin, Chronic anemia Discharge ED - Sign-Out/Discharge Documenting (check all that apply): Patient Departure - Admission - Discharge Plan Condition: Stable Disposition: ADMITTED TO [facility] Referrals: Arley Harp MD [Primary Care Provider] - - Billing Disposition and Condition Condition: STABLE Disposition: Admitted to [facility] - Attestation Statements Document Initiated by Scribe: Yes Documenting Scribe: Tariq Dillon Provider For Whom Scribe is Documenting (Include Credential): Palomo Chang DO Scribe Attestation: ITariq, scribed for Palomo Chang DO on 07/02/19 at 2016. Scribe Documentation Reviewed: Yes Provider Attestation: The documentation as recorded by the Tariq morris accurately reflects the service I personally performed and the decisions made by me, Palomo Chang DO Status of Scribe Document: Viewed
[2019-07-02] MEDS ORDERED: NS 0.9% 1000 ML** 1,000 ML IV ONE (18:39)
[2019-07-02 18:59] LABS: Hematocrit 29 % (42-52); Mean Corpuscular HGB Conc 32 g/dL (31-36); Mean Corpuscular Hemoglobin 25 pg (27-31); Mean Corpuscular Volume 80 fL (80-94); Mean Platelet Volume 7.5 fL (7.4-10.4); Platelet Count 210 10^3/uL (150-450); Red Blood Count 3.55 10^6 /uL (4.18-5.48); Red Cell Distribution Width 19 % (10-15); White Blood Count 13.1 10^3/uL (3.5-10.8)
--- OUTSIDE RECORDS SUMMARY | 2019-07-02 19:00 | XMS REPORT | Continuity of Care Document ---
:1935 External Reference #:[id number] Author Name Hedy Jackson MD (transmitted by agent of provider Darshana Reina) Address [address] , [address] [place] [address] Care Team Providers Name Role Phone Arley Harp MD - Internal Care Team Information Dope Heater [phone] Medicine Problems Active Problems Provider Date Paroxysmal atrial fibrillation Mulugeta Hill, DO FACC Onset: 02/12/2016 Social History Type Date Description Comments Sex Unknown Tobacco Use Start: Unknown Never Smoked Cigarettes Smoking Status Reviewed: 06/13/19 Never Smoked Cigarettes ETOH Use Denies alcohol [...] Medications SIG Qnty Indications Ordering Date Provider Bumex take 2 tab by 150tabs Hedy Jackson MD 05/05/2019 2mg Tablets mouth daily in the morning Aspirin 81 1 by mouth every 30tabs Mulugeta Hill, 03/01/2019 81mg Tablets day DO FACC DR Morales 1 tablet by 60tabs I48.0 Mulugeta Hill, 11/23/2017 2.5mg Tablets mouth twice a DO FACC day. Nitrostat one sl q5min up 25tabs Mulugeta Hill, 07/30/2016 0.4mg Tablets to 3 doses as DO FACC Sub needed Multi For Him 50+ 1 by mouth every Unknown day Tablets Calcium + D3 1 by mouth every 90tabs Unknown day [id number] Tablets Lantus Solostar 15 units sub-q Unknown once daily 100Unit/ML Solution Pen-Inject Vyndaqel take 4 caps at Unknown 20mg Capsules hs Amiodarone HCL 1 by mouth every 90tabs Mulugeta Hill, 200mg day DO [facility] Tablets Januvia 1 by mouth every Unknown 50mg Tablets day Levothyroxine Sodium 1 by mouth every Unknown day 75mcg Tablets History Medications Spironolactone 1 by mouth every 90tabs Hedy Perezcain, 05/05/2019 - 50mg Tablets day MD Unknown Bumex Mulugeta SNavjot 04/11/2019 - 2mg Tablets Sergio DO [facility] 04/11/2019 Bumex take 4 tablets (4 180tabs Mulugeta SNavjot 04/11/2019 - 1mg Tablets mg) by mouth Sergio DO [facility] 05/05/2019 daily Torsemide take 2 by mouth 90tabs Mulugeta SNavjot 03/24/2019 - 20mg Tablets daily Sergio DO [facility] 04/11/2019 Medications Administered in Office Medication SIG Qnty Indications Ordering Provider Date Inj, Regadenoson, 0.1 MG Mulugeta Hill, DO [facility] 07/30/2016 Injection Aminophylline Mulugeta Hill, DO [facility] 07/30/2016 Injection Technetium TC 99M Mulugeta Hill, DO [facility] 07/30/2016 Tetrofosmin, Per Unit Dose Up To 40 Millicuries Injection Inj, Regadenoson, 0.1 MG Mulugeta Hill, DO [facility] 10/02/2015 Injection Inj, Regadenoson, 0.1 MG Leticia Woodruff M.D. 10/02/2015 Injection Technetium TC 99M Mulugeta Hill, DO [facility] 10/02/2015 Tetrofosmin, Per Unit Dose Up To 40 Millicuries Injection Depomedrol 80MG Rene Estrada M.D. 06/11/2010 Injection Immunizations Description No Information Available Vital Signs Date Vital Result Comment 06/13/2019 11:31am Weight 168.00 lb Pt in wheelchair. Heart Rate 60 /min BP Systolic Sitting 114 mmHg left arm reg cuff BP Diastolic Sitting 47 mmHg left arm reg cuff O2 % BldC Oximetry 97 % room air 05/10/2019 3:27pm Height 69 inches 5'9" Weight 182.00 lb Heart Rate 60 /min BP Systolic Sitting 124 mmHg left arm reg cuff BP Diastolic Sitting 51 mmHg left arm reg cuff O2 % BldC Oximetry 96 % room air BMI (Body Mass Index) 26.9 kg/m2 Results Test Acquired Date Facility Test Result H/L Range Note Comp Metabolic 06/03/2019 [facility] Sodium 128 mmol/L Low 135 -[address] [place] [address] [phone] Potassium 4.5 mmol/L Normal 3.5-5.0 Chloride 88 mmol/L Low 101-111 Co2 Carbon Dioxide 32 mmol/L Normal 22-32 Anion Gap 8 mmol/L Normal 2-11 Glucose 247 mg/dL High 70-100 Blood Urea Nitrogen 89 mg/dL High 6-24 Creatinine 2.28 mg/dL High 0.67-1.17 BUN/Creatinine Ratio 39.0 High 8-20 Calcium 9.1 mg/dL Normal 8.6-10.3 Total Protein 6.5 g/dL Normal 6.4-8.9 Albumin 3.2 g/dL Normal 3.2-5.2 Globulin 3.3 g/dL Normal 2-4 Albumin/Globulin Ratio 1.0 Normal 1-3 Total Bilirubin 0.60 mg/dL Normal 0.2-1.0 Alkaline Phosphatase 90 U/L Normal 34-104 Alt 133 U/L High 7-52 Ast 115 U/L High 13-39 Egfr Non- 27.7 >60 Egfr 33.5 >60 1 CBC No Diff 06/03/2019 [facility] White Blood 12.2 10^3/uL High 3.5-10.[address] [place] [address] [phone] Red Blood Count 3.95 10^6/uL Low 4.18-5.48 Hemoglobin 10.6 g/dL Low 14.0-18.0 Hematocrit 32 % Low 42-52 Mean Corpuscular Volume 82 fL Normal 80-94 Mean Corpuscular Hemoglobin 27 pg Normal 27-31 Mean Corpuscular HGB Conc 33 g/dL Normal 31-36 Red Cell Distribution Width 16 % High 10-15 Platelet Count 339 10^3/uL Normal 150-450 Mean Platelet Volume 7.5 fL Normal 7.4-10.4 Basic Metabolic 05/09/2019 [facility] Sodium 130 mmol/L Low 135-[address] [place] [address] [phone] Potassium 4.9 mmol/L Normal 3.5-5.0 Chloride 86 mmol/L Low 101-111 Co2 Carbon Dioxide 32 mmol/L Normal 22-32 Anion Gap 12 mmol/L High 2-11 Glucose 279 mg/dL High 70-100 Blood Urea Nitrogen 100 mg/dL High 6-24 Creatinine 3.04 mg/dL High 0.67-1.17 BUN/Creatinine Ratio 32.9 High 8-20 Calcium 9.7 mg/dL Normal 8.6-10.3 Egfr Non- 19.9 >60 Egfr 24.1 >60 2 Urine Microalbumin 05/05/2019 [facility] Ur Microalbumin 90.6 mg /L Random [address] (mg/L) [place] [address] [phone] Urine Creatinine 23.75 mg/dL Urine Microalbumin/Creatinine 381.4 High <31 Comp Metabolic 05/05/2019 [facility] Sodium 137 mmol/L Normal 135-[address] [place] [address] [phone] Potassium 4.3 mmol/L Normal 3.5-5.0 Chloride 92 mmol/L Low 101-111 Co2 Carbon Dioxide 35 mmol/L High 22-32 Anion Gap 10 mmol/L Normal 2-11 Glucose 199 mg/dL High 70-100 Blood Urea Nitrogen 96 mg/dL High 6-24 Creatinine 3.01 mg/dL High 0.67-1.17 BUN/Creatinine Ratio 31.9 High 8-20 Calcium 10.3 mg/dL Normal 8.6-10.3 Total Protein 7.1 g/dL Normal 6.4-8.9 Albumin 3.9 g/dL Normal 3.2-5.2 Globulin 3.2 g/dL Normal 2-4 Albumin/Globulin Ratio 1.2 Normal 1-3 Total Bilirubin 1.10 mg/dL High 0.2-1.0 Alkaline Phosphatase 66 U/L Normal 34-104 Alt 53 U/L High 7-52 Ast 33 U/L Normal 13-39 Egfr Non- 20.1 >60 Egfr 24.3 >60 3 Lipid Profile 05/05/2019 [facility] Triglycerides 61 mg/dL 4 (Trig/Chol/HDL) [address] [place], [place] [id number] [phone] Cholesterol 140 mg/dL 5 HDL Cholesterol 69.3 mg/dL 6 LDL Cholesterol 59 mg/dL 7 Liver Function 05/05/2019 [facility] Direct 0.30 mg/dL High 0.03-0.18 Panel [address] [place] [address] [phone] Indirect Bilirubin 0.8 mg/dL Normal 0.3-1.0 Laboratory test 05/05/2019 [facility] Vitamin B12 1304 pg/mL High 180-914 8 finding [address] [place], [place] [id number] [phone] Basic Metabolic 04/27/2019 [facility] Sodium 133 mmol/L Low 135-145 Panel [address] [place] [address] [phone] Potassium 4.7 mmol/L Normal 3.5-5.0 Chloride 91 mmol/L Low 101-111 Co2 Carbon Dioxide 33 mmol/L High 22-32 Anion Gap 9 mmol/L Normal 2-11 Calcium 9.7 mg/dL Normal 8.6-10.3 Glucose 264 mg/dL High 70-100 Blood Urea Nitrogen 83 mg/dL High 6-24 Creatinine 2.93 mg/dL High 0.67-1.17 BUN/Creatinine Ratio 28.3 High 8-20 Egfr Non- 20.7 >60 Egfr 25.1 >60 9 Basic Metabolic 04/02/2019 [facility] Sodium 138 mmol/L Normal 135-145 Panel [address] [place] [address] [phone] Potassium 4.1 mmol/L Normal 3.5-5.0 Chloride 94 mmol/L Low 101-111 Co2 Carbon Dioxide 34 mmol/L High 22-32 Anion Gap 10 mmol/L Normal 2-11 Glucose 203 mg/dL High 70-100 Blood Urea Nitrogen 78 mg/dL High 6-24 Creatinine 2.58 mg/dL High 0.67-1.17 BUN/Creatinine Ratio 30.2 High 8-20 Calcium 9.9 mg/dL Normal 8.6-10.3 Egfr Non- 24.0 >60 Egfr 29.1 >60 10 Basic Metabolic 03/22/2019 [facility] Sodium 133 mmol/L Low 135-145 Panel [address] [place] [address] [phone] Potassium 4.0 mmol/L Normal 3.5-5.0 Chloride 92 mmol/L Low 101-111 Co2 Carbon Dioxide 31 mmol/L Normal 22-32 Anion Gap 10 mmol/L Normal 2-11 Glucose 161 mg/dL High 70-100 Blood Urea Nitrogen 84 mg/dL High 6-24 Creatinine 2.86 mg/dL High 0.67-1.17 BUN/Creatinine Ratio 29.4 High 8-20 Calcium 9.5 mg/dL Normal 8.6-10.3 Egfr Non- 21.3 >60 Egfr 25.8 >60 11 Comp Metabolic 03/02/2019 [facility] Sodium 135 mmol/L Normal 135-145 Panel [address] [place] [address] [phone] Potassium 4.2 mmol/L Normal 3.5-5.0 Chloride 94 [...] Egfr Non- 24.6 >60 Egfr 29.7 >60 12 Laboratory test 03/02/2019 [facility] Magnesium 2.2 mg/dL Normal 1.9-2.[address] [place] [address] [phone] CBC Auto Diff 03/02/2019 [facility] White Blood 8.2 Normal 3.5 -10.[address] Count 10^3/[place] [address] [phone] Red Blood Count 4.11 10^6/uL Low 4.18-5.48 [...] Blood Cells % 0.0 Laboratory test 03/02/2019 [facility] TSH (Thyroid 8.20 High 0.34-5.[address] Stim Horm) mcIU/mL [place], [place] [address] [phone] Free T4 (Free Thyroxine) 0.88 ng/dL Normal 0.61-1.12 1 Because ethnic data is not always [...] 5 Kidney failure <15 (or dialysis) 4 Desirable: <150 Borderline High: 150-199 High: 200-499 Very High: >500 5 Desirable: <200 Borderline High: 200-239 High: >239 6 Low: <40 Desirable: 40-60 High: >60 7 Desirable: <100 Near Optimal: 100-129 Borderline High: 130-159 High: 160-189 Very High: >189 8 Normal Range 180 to 914 Indeterminate Range 145 to 180 Deficient Range <145 9 Because ethnic data is not always readily [...] 15-29 5 Kidney failure <15 (or dialysis) 10 Because ethnic data is not always readily [...] 15-29 5 Kidney failure <15 (or dialysis) 11 Because ethnic data is not always readily [...] 15-29 5 Kidney failure <15 (or dialysis) 12 Because ethnic data is not always readily [...] (or dialysis) Procedures Date Code Description Status 04/25/2019 64302 Icd Eval Sing,Dual,Multi Lead Remote Recpt Transm Tech Rev Completed Tech S 04/25/2019 36670 Icd Eval Sing,Dual,Multi Lead Remote Recpt Transm Tech Rev Completed Tech S 04/25/2019 25478 Pacemaker Check Remote Up To 90Days Single,Dual,Multiple Completed Lead 04/25/2019 41436 Pacemaker Check Remote Up To 90Days Single,Dual,Multiple Completed Lead 04/22/2019 68300 ECHO Transthorasic Realtime 2D W Doppler & Color Flow Hosp Completed 04/04/2019 73491 EKG Tracing & Interpretation Completed 03/28/2019 10130 Pace Maker Eval W/Iterative Adjment Dual Lead Completed 03/28/2019 26817 Pace Maker Eval W/Iterative Adjment Dual Lead Completed 03/23/2019 77659 ECHO Transthoracic, Real-Time 2D With Doppler And Color Completed Flow 03/23/2019 86198 ECHO Transthoracic, Real-Time 2D With Doppler And Color Completed Flow 03/14/2019 67056 Cardioversion Completed 03/14/2019 48949 EKG, Interpretation Only Completed 03/14/2019 68771 EKG, Interpretation Only Completed 03/14/2019 59598 Moderate Sedation Services; Same Phys Intl 15 Mins; PT >= Completed 5 Years 03/04/2019 93538 EKG Tracing & Interpretation Completed 03/02/2019 31644 EKG Tracing & Interpretation Completed 12/28/2018 27779 Pace Maker Eval W/Iterative Adjment Dual Lead Completed 12/28/2018 15471 Pace Maker Eval W/Iterative Adjment Dual Lead Completed 12/23/2018 11817 Icd Eval Sing,Dual,Multi Lead Remote Recpt Transm Tech Rev Completed Tech S 12/23/2018 82135 Icd Eval Sing,Dual,Multi Lead Remote Recpt Transm Tech Rev Completed Tech S 12/23/2018 12648 Pacemaker Check Remote Up To 90Days Single,Dual,Multiple Completed Lead 12/23/2018 31551 Pacemaker Check Remote Up To 90Days Single,Dual,Multiple Completed Lead Medical Devices Description No Information Available Encounters Type Date Location Provider Dx Diagnosis Office Visit 05/10/2019 [facility] Hedy Jackson MD I13.0 Hyp hrt & 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 and stg 1-4/unsp chr kdny N18.4 Chronic kidney disease, stage 4 (severe) I50.32 Chronic diastolic (congestive) heart failure R60.9 Edema, unspecified 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, unspecified Office Visit 05/10/2019 10:20a [facility] Mulugeta Bender I50.30 Unspecified Of [facility] Sergio DO diastolic FACC (congestive) heart failure N18.9 Chronic kidney disease, unspecified I48.92 Unspecified atrial flutter E03.9 Hypothyroidism, unspecified I50.32 Chronic diastolic (congestive) heart failure Z95.0 Presence of cardiac pacemaker 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 block, complete I48.0 Paroxysmal atrial fibrillation I25.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 I44.7 Left bundle-branch block, unspecified 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, unspecified K92.2 Gastrointestinal hemorrhage, unspecified I73.9 Peripheral vascular disease, unspecified Office Visit 05/05/2019 10:30a [facility] Hedy Jackson MD 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909 Non-prs chronic ulc unsp prt of unsp low leg w unsp severity Office Visit 05/03/2019 12:07p [facility] Nancy Iraheta L97.528 Non- prs chronic [facility] Kelin, CLIENT SERVICE ADMINISTRATOR ulcer oth prt left foot with oth severity E11.621 Type 2 diabetes mellitus with foot ulcer L97.829 Non-pressure chronic ulcer oth prt l low leg w unsp severity E11.622 Type 2 diabetes mellitus with other skin ulcer I87.2 Venous insufficiency (chronic) (peripheral) Office Visit 05/03/2019 9:45a [facility] Dian I12.9 Hypertensive thom Knott MD chronic kidney Hospitalists disease w stg 1-4/unsp chr kdny I50.33 Acute on chronic diastolic (congestive) heart failure I48.92 Unspecified atrial flutter E11.22 Type 2 diabetes mellitus w diabetic chronic kidney disease N18.4 Chronic kidney disease, stage 4 (severe) E03.9 Hypothyroidism, unspecified Office Visit 05/02/2019 [facility] Nikkie Smith, I50.33 Acute on chronic 9:44a thom Knott M.D. diastolic Hospitalists (congestive) heart failure R79.89 Other specified abnormal findings of blood chemistry E11.22 Type 2 diabetes mellitus w diabetic chronic kidney disease N18.4 Chronic kidney disease, stage 4 (severe) Office Visit 04/27/2019 9:00a [facility] Nephrology Hedy Jackson, I12.9 Hypertensive MD chronic kidney disease w stg 1-4/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 N18.3 Chronic kidney disease, stage 3 (moderate) R60.9 Edema, unspecified I50.32 Chronic diastolic (congestive) heart failure Office Visit 04/23/2019 9:16a [facility] Nephrology Hedy Jackson, N17.9 Acute kidney MD failure, unspecified E11.22 Type 2 diabetes mellitus w diabetic chronic kidney disease N18.9 Chronic kidney disease, unspecified Office Visit 04/23/2019 [facility] Moreno Pastor I50.33 Acute on chronic 1:16p Assoc,thom Guillen M.D.,FACP diastolic Hospitalists (congestive) heart failure Office Visit 04/23/2019 [facility] Mulugeta S. I13.0 Hyp hrt & chr 1:34p Of [facility] [place], DO FACC kdny dis w hrt fail and stg 1-4/unsp chr kdny I50.33 Acute on chronic diastolic (congestive) heart failure E11.22 Type 2 diabetes mellitus w diabetic chronic kidney disease N18.9 Chronic kidney disease, unspecified Office Visit 04/22/2019 1:33p [facility] Mulugeta S. 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 ulcer 06/07/2019 Z86.31 Personal history of diabetic foot Pradip Davis M.D. ulcer 06/07/2019 I10 Essential (primary) hypertension Pradip Davis M.D. 06/07/2019 S91.102A Unspecified open wound of left great Pradip Davis M.D. toe without damage to nail, initial encounter 05/10/2019 I13.0 Hypertensive heart and chronic Hedy Jackson MD kidney disease with heart failure and stage 1 through stage 4 chronic kidney disease, or unspecified chronic kidney disease 05/10/2019 I50.30 Unspecified diastolic (congestive) Mulugeta Hill, DO FAC heart failure 05/10/2019 N18.4 Chronic kidney disease, stage 4 Hedy Jackson MD (severe) 05/10/2019 N18.9 Chronic kidney disease, unspecified Mulugeta Hill, DO FAC 05/10/2019 I50.32 Chronic diastolic (congestive) heart Hedy Jackson MD failure 05/10/2019 I48.92 Unspecified atrial flutter Mulugeta Hill DO FAC 05/10/2019 R60.9 Edema, unspecified Hedy Jackson MD 05/10/2019 E03.9 Hypothyroidism, unspecified Mulugeta Hill, DO FAC 05/10/2019 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, unspecified Hedy Jackson MD 05/10/2019 I50.32 Chronic diastolic (congestive) heart Mulugeta Hill, DO FAC failure 05/10/2019 Z95.0 Presence of cardiac pacemaker Mulugeta Hill DO FACC 05/10/2019 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 block, complete Mulugeta Hill, DO FACC 05/10/2019 I48.0 Paroxysmal atrial fibrillation Mulugeta Hill, DO FAC 05/10/2019 I25.2 Old myocardial infarction Mulugeta Hill, DO FAC 05/10/2019 Z95.2 Presence of prosthetic heart valve Mulugeta Hill, DO FACC 05/10/2019 I44.7 Left bundle-branch block, Mulugeta Hill, DO FACC unspecified 05/10/2019 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, unspecified Mulugeta Hill, DO FAC 05/10/2019 K92.2 Gastrointestinal hemorrhage, Mulugeta Hill, DO FACC unspecified 05/10/2019 I73.9 Peripheral vascular disease, Mulugeta Hill, DO FACC unspecified 05/05/2019 I13.0 Hypertensive heart and chronic Hedy Jackson MD kidney disease with heart failure and stage 1 through stage 4 chronic kidney disease, or unspecified chronic kidney disease 05/05/2019 E11.22 Type 2 diabetes mellitus with Hedy Jackson MD diabetic chronic kidney disease 05/05/2019 N18.3 Chronic kidney disease, stage 3 Hedy Jackson MD (moderate) 05/05/2019 I50.30 Unspecified diastolic (congestive) Hedy Jackson MD heart failure 05/05/2019 R60.9 Edema, unspecified Hedy Jackson MD 05/04/2019 I50.33 Acute on chronic diastolic Dian Finn MD (congestive) heart failure 05/04/2019 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 Dian Finn MD with stage 1 through stage 4 chronic kidney disease, or unspecified chronic kidney disease 05/04/2019 E11.22 Type 2 diabetes mellitus with Dian Finn MD diabetic chronic kidney disease 05/04/2019 N18.4 Chronic kidney disease, stage 4 Dian Finn MD (severe) 05/04/2019 E11.621 Type 2 diabetes mellitus with foot Dian Finn MD ulcer 05/04/2019 L97.909 Non-pressure chronic ulcer of Dian Finn MD unspecified part of unspecified lower leg with unspecified severity 05/03/2019 L97.528 Non-pressure chronic ulcer of other Nancy Neville NP part of left foot with other specified severity 05/03/2019 E11.621 Type 2 diabetes mellitus with foot Nancy Neville NP ulcer 05/03/2019 L97.829 Non-pressure chronic ulcer of other Nancy Neville NP part of left lower leg with unspecified severity 05/03/2019 E11.622 Type 2 diabetes mellitus with other Nancy Neville NP skin ulcer 05/03/2019 I87.2 Venous insufficiency (chronic) Nancy Neville NP (peripheral) 05/03/2019 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 Dian Finn MD with stage 1 through stage 4 chronic kidney disease, or unspecified chronic kidney disease 05/03/2019 I50.33 Acute on chronic diastolic Dian Finn MD (congestive) heart failure 05/03/2019 I48.92 Unspecified atrial flutter Dian Finn MD 05/03/2019 E11.22 Type 2 diabetes mellitus with Dian Finn MD diabetic chronic kidney disease 05/03/2019 N18.4 Chronic kidney disease, stage 4 Dian Finn MD (severe) 05/03/2019 E03.9 Hypothyroidism, unspecified Dian Finn MD 05/02/2019 I50.33 Acute on chronic diastolic Nikkie Smith M.D. (congestive) heart failure 05/02/2019 R79.89 Other specified abnormal findings of Nikkie Smith M.D. blood chemistry 05/02/2019 E11.22 Type 2 diabetes mellitus with Nikkie Smith M.D. diabetic chronic kidney disease 05/02/2019 N18.4 Chronic kidney disease, stage 4 Nikkie Smith M.D. (severe) 04/27/2019 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 Hedy Jackson MD with stage 1 through stage 4 chronic kidney disease, or unspecified chronic kidney disease 04/27/2019 E11.22 Type 2 diabetes mellitus with Hedy Jackson MD diabetic chronic kidney disease 04/27/2019 N18.3 Chronic kidney disease, stage 3 Hedy Jackson MD (moderate) 04/27/2019 R60.9 Edema, unspecified Hedy Jackson MD 04/27/2019 I50.32 Chronic diastolic (congestive) heart Hedy Jackson MD failure 04/25/2019 Z95.0 Presence of cardiac pacemaker Mulugeta Hill DO [facility] 04/25/2019 Z95.0 Presence of cardiac pacemaker Remote Device Checks 04/25/2019 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 block, complete Mulugeta Hill DO FACC 04/25/2019 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 block, complete Remote Device Checks 04/23/2019 I13.0 Hypertensive heart and chronic Mulugeta Hill DO FAC kidney disease with heart failure and stage 1 through stage 4 chronic kidney disease, or unspecified chronic kidney disease 04/23/2019 N17.9 Acute kidney failure, unspecified Hedy Jackson MD 04/23/2019 I50.33 Acute on chronic diastolic Mulugeta Hill DO FACC (congestive) heart failure 04/23/2019 I50.33 Acute on chronic diastolic Moreno Guillen M.D.,FACP (congestive) heart failure 04/23/2019 E11.22 Type 2 diabetes mellitus with Mulugeta Hill DO FACC diabetic chronic kidney disease 04/23/2019 E11.22 Type 2 diabetes mellitus with Hedy Jackson MD diabetic chronic kidney disease 04/23/2019 N18.9 Chronic kidney disease, unspecified Mulugeta Hill, DO FACC 04/23/2019 N18.9 Chronic kidney disease, unspecified Hedy Jackson MD 04/22/2019 I50.33 Acute on chronic diastolic Mulugeta Hill DO FACC (congestive) heart failure 04/22/2019 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 Hill DO [facility] diabetic chronic kidney disease 04/22/2019 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 blood chemistry 04/21/2019 R60.0 Localized edema Nikkie Smith M.D. 04/21/2019 R53.83 Other fatigue Nikkie Smith M.D. 04/04/2019 I48.0 Paroxysmal atrial fibrillation Mulugeta Hill, DO [facility] 04/04/2019 I48.92 Unspecified atrial flutter Mulugeta Hill, DO [facility] 04/04/2019 Z95.0 Presence of cardiac pacemaker Mulugeta Hill, DO FAC 04/04/2019 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 block, complete Mulugeta Hill, DO [facility] 04/04/2019 Z95.2 Presence of prosthetic heart valve Mulugeta Hill DO [facility] 04/04/2019 I50.32 Chronic diastolic (congestive) heart Mulugeta Hill DO [facility] failure 04/04/2019 N18.9 Chronic kidney disease, unspecified Mulugeta Hill, DO FAC 04/04/2019 I25.2 Old myocardial infarction Mulugeta Hill, DO FAC 04/04/2019 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, 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 with 04/04/2019 I44.7 Left bundle-branch block, Mulugeta Hill, DO FAC unspecified 04/04/2019 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, unspecified Mulugeta Hill, DO FAC 04/04/2019 K92.2 Gastrointestinal hemorrhage, Mulugeta Hill, DO FAC unspecified 04/04/2019 E78.5 Hyperlipidemia, unspecified Mulugeta Hill, DO FACC 04/04/2019 I73.9 Peripheral vascular disease, Mulugeta Hill, DO FACC unspecified 04/04/2019 E03.9 Hypothyroidism, unspecified Mulugeta Hill, DO [...] prosthetic heart valve Traveling ECHO 1 03/14/2019 R94.31 Abnormal electrocardiogram [ECG] Regla Duff MD, [facility], [EKG] [facility] 03/14/2019 I48.4 Atypical atrial flutter Mulugeta Hill, [...] FACC 03/04/2019 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, DO FACC [place] coronary artery with 03/04/2019 Z95.2 Presence of prosthetic heart valve Mulugeta Hill, DO FACC 03/04/2019 R94.31 Abnormal electrocardiogram [ECG] Mulugeta Hill, DO FACC [EKG] 03/02/2019 I48.92 Unspecified atrial flutter Mulugeta Hill, [...] FACC 03/02/2019 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, 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 with 03/02/2019 Z95.2 Presence of prosthetic heart valve Mulugeta Hill, DO FACC 03/02/2019 I50.33 Acute on chronic diastolic Mulugeta Hill, DO FAC (congestive) heart failure 03/02/2019 I44.7 Left bundle-branch block, Mulugeta Hill, DO FAC unspecified 03/02/2019 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 block, complete Mulugeta Hill, [...] I48.0 Paroxysmal atrial fibrillation Remote Device Checks Plan of Treatment Future Appointment(s):08/08/2019 11:30 am - Hedy Jackson MD at [facility] [id number] /11/2020 10:20 am - Mulugeta Hill DO FACC at [facility]2019 - Hedy Jackson MDN18.4 Chronic kidney disease, stage 4 (severe)Follow up: 2 MONTHS - IF THERE ANY BLOOD WORK AHEAD OF TIME , ORDERED BY ANOTHER PHUSYCIAN , YOU DONT HAVE TO DO IT FOR ME. Functional Status Description No Information Available Mental Status Description No Information Available Referrals Refer to Dr Reason for Referral Status Appt Date Beltran Umanzor MD atypical atrial flutter management [address] [place] [address] [phone]
--- OUTSIDE RECORDS SUMMARY | 2019-07-02 19:00 | XMS REPORT | Continuity of Care Document ---
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 Medicine Problems Active Problems Provider Date Paroxysmal atrial fibrillation Mulugeta Hill, DO [facility] Onset: 02/12/2016 Social History Type Date Description Comments Sex Unknown Tobacco Use Start: Unknown Never Smoked Cigarettes Smoking Status Reviewed: 05/10/19 Never Smoked Cigarettes ETOH Use Denies alcohol [...] Qnty Indications Ordering Date Provider Bumex take 5 tab 150tabs Hedy Jackson MD 05/05/2019 2mg Tablets daily in the morning Spironolactone 1 by mouth 90tabs Hedy Jackson MD 05/05/2019 50mg Tablets every day Aspirin 81 1 by mouth 30tabs Mulugeta Hill, 03/01/[address] every day DO FACC Eliquis 1 tablet by 60tabs I48.0 Mulugeta Hill, 11/23/2017 2.5mg Tablets mouth twice a DO [facility] day. Atorvastatin Calcium 1 by mouth 90tabs E11.9 Mulugeta Hill, 04/13/2017 80mg every day DO [facility] Tablets Nitrostat one sl q5min up 25tabs Mulugeta Hill, 07/30/2016 0.4mg Tablets Sub to 3 doses as DO [facility] needed Levothyroxine Sodium 1 by mouth Unknown 75mcg every day Tablets Januvia 1 by mouth Unknown 100mg Tablets every day Amiodarone HCL 1 by mouth 90tabs Mulugeta Hill, 200mg every day DO [facility] Tablets Vyndaqel take 4 caps at Unknown 20mg Capsules hs Lantus Solostar 15 units sub-q Unknown 100Unit/ML once daily Solution Pen-Inject Calcium + D3 1 by mouth 90tabs Unknown [id number] every day Tablets Multi For Him 50+ 1 by mouth Unknown Tablets every day History Medications Bumex Mulugeta Hill, 04/11/2019 - 2mg Tablets DO [facility] 04/11/2019 Bumex take 4 tablets (4 180tabs Mulugeta Hill, 04/11/2019 - 1mg Tablets mg) by mouth DO [facility] 05/05/2019 daily Torsemide take 2 by mouth 90tabs Mulugeta Hill, 03/24/2019 - 20mg daily DO [facility] 04/11/2019 Tablets Aspirin 81 Take 1 by mouth 90tabs Z95.0 Mulugeta Hill, 12/09/2018 - 81mg every day DO [facility] 03/01/2019 Tablets Medications Administered in Office Medication SIG Qnty Indications Ordering Provider Date Inj, Regadenoson, 0.1 MG Mulugeta Hill, DO [facility] 07/30/2016 Injection Aminophylline Mulugeta Hill, DO [facility] 07/30/2016 Injection Technetium TC 99M Mulugeta Hill, DO [facility] 07/30/2016 Tetrofosmin, Per Unit Dose Up To 40 Millicuries Injection Inj, Regadenoson, 0.1 MG Mulugeta Hill, DO [facility] 10/02/2015 Injection Inj, Regadenoson, 0.1 MG Leticia Woodruff M.D. 10/02/2015 Injection Technetium TC 99M Mulugeta Hill DO [facility] 10/02/2015 Tetrofosmin, Per Unit Dose Up To 40 Millicuries Injection Depomedrol 80MG Rene Estrada M.D. 06/11/2010 Injection Immunizations Description No Information Available Vital Signs Date Vital Result Comment 05/10/2019 3:27pm Height 69 inches 5'9" Weight 182.00 lb Heart Rate 60 /min BP Systolic Sitting 124 mmHg left arm reg cuff BP Diastolic Sitting 51 mmHg left arm reg cuff O2 % BldC Oximetry 96 % room air BMI (Body Mass Index) 26.9 kg/m2 05/10/2019 10:04am Height 69 inches 5'9" Weight 170.00 lb with shoes Heart Rate 62 /min BP Systolic Sitting 110 mmHg Lue reg cuff BP Diastolic Sitting 64 mmHg Lue reg cuff Respiratory Rate 16 /min BMI (Body Mass Index) 25.1 kg/m2 Results Test Acquired Date Facility Test Result H/L Range Note Basic Metabolic 05/09/2019 [facility] Sodium 130 mmol/L Low 135-[address] [place] [address] [phone] Potassium 4.9 mmol/L Normal 3.5-5.0 Chloride 86 mmol/L Low 101-111 Co2 Carbon Dioxide 32 mmol/L Normal 22-32 Anion Gap 12 mmol/L High 2-11 Glucose 279 mg/dL High 70-100 Blood Urea Nitrogen 100 mg/dL High 6-24 Creatinine 3.04 mg/dL High 0.67-1.17 BUN/Creatinine Ratio 32.9 High 8-20 Calcium 9.7 mg/dL Normal 8.6-10.3 Egfr Non- 19.9 >60 Egfr 24.1 >60 1 Urine Microalbumin 05/05/2019 [facility] Ur Microalbumin 90.6 mg /L Random [address] (mg/L) [place] [address] [phone] Urine Creatinine 23.75 mg/dL Urine Microalbumin/Creatinine 381.4 High <31 Comp Metabolic 05/05/2019 [facility] Sodium 137 mmol/L Normal 135-[address] [place] [address] [phone] Potassium 4.3 mmol/L Normal 3.5-5.0 Chloride 92 [...] Egfr Non- 20.1 >60 Egfr 24.3 >60 2 Lipid Profile 05/05/2019 [facility] Triglycerides 61 mg/dL 3 (Trig/Chol/HDL) [address] [place], [place] [id number] [phone] Cholesterol 140 mg/dL 4 HDL Cholesterol 69.3 mg/dL 5 LDL Cholesterol 59 mg/dL 6 Liver Function 05/05/2019 [facility] Direct 0.30 mg/dL High 0.03-0.[address] [facility] [place] [address] [phone] Indirect Bilirubin 0.8 mg/dL Normal 0.3-1.0 Laboratory test 05/05/2019 [facility] Vitamin B12 1304 pg/mL High 180-914 7 finding [address] [place], [place] [id number] [phone] Basic Metabolic 04/27/2019 [facility] Sodium 133 mmol/L Low 135-145 Panel [address] [place] [address] [phone] Potassium 4.7 mmol/L Normal 3.5-5.0 Chloride 91 mmol/L Low 101-111 Co2 Carbon Dioxide 33 mmol/L High 22-32 Anion Gap 9 mmol/L Normal 2-11 Calcium 9.7 mg/dL Normal 8.6-10.3 Glucose 264 mg/dL High 70-100 Blood Urea Nitrogen 83 mg/dL High 6-24 Creatinine 2.93 mg/dL High 0.67-1.17 BUN/Creatinine Ratio 28.3 High 8-20 Egfr Non- 20.7 >60 Egfr 25.1 >60 8 Basic Metabolic 04/02/2019 [facility] Sodium 138 mmol/L Normal 135-[address] [place] [address] [phone] Potassium 4.1 mmol/L Normal 3.5-5.0 Chloride 94 mmol/L Low 101-111 Co2 Carbon Dioxide 34 mmol/L High 22-32 Anion Gap 10 mmol/L Normal 2-11 Glucose 203 mg/dL High 70-100 Blood Urea Nitrogen 78 mg/dL High 6-24 Creatinine 2.58 mg/dL High 0.67-1.17 BUN/Creatinine Ratio 30.2 High 8-20 Calcium 9.9 mg/dL Normal 8.6-10.3 Egfr Non- 24.0 >60 Egfr 29.1 >60 9 Basic Metabolic 03/22/2019 [facility] Sodium 133 mmol/L Low 135-[address] [place] [address] [phone] Potassium 4.0 mmol/L Normal 3.5-5.0 Chloride 92 mmol/L Low 101-111 Co2 Carbon Dioxide 31 mmol/L Normal 22-32 Anion Gap 10 mmol/L Normal 2-11 Glucose 161 mg/dL High 70-100 Blood Urea Nitrogen 84 mg/dL High 6-24 Creatinine 2.86 mg/dL High 0.67-1.17 BUN/Creatinine Ratio 29.4 High 8-20 Calcium 9.5 mg/dL Normal 8.6-10.3 Egfr Non- 21.3 >60 Egfr 25.8 >60 10 Laboratory test 03/02/2019 [facility] TSH (Thyroid 8.20 High 0.34-5.[address] Stim Horm) mcIU/[place] [address] [phone] Free T4 (Free Thyroxine) 0.88 ng/dL Normal 0.61-1.12 CBC Auto 03/02/2019 [facility] White Blood 8.2 10^3/uL Normal 3.5-10.[address] [place] [address] [phone] Red Blood Count 4.11 10^6/uL Low 4.18-5.48 [...] Blood Cells % 0.0 Laboratory test 03/02/2019 [facility] Magnesium 2.2 mg/dL Normal 1.9-2.7 finding [address] [place] [address] [phone] Comp Metabolic 03/02/2019 [facility] Sodium 135 mmol/L Normal 135-[address] [place] [address] [phone] Potassium 4.2 mmol/L Normal 3.5-5.0 Chloride 94 [...] Egfr Non- 24.6 >60 Egfr 29.7 >60 11 Laboratory test 11/30/2018 [facility] Blood Urea 67 mg/dL High 6-[address] [place] [address] [phone] Creatinine 11/30/2018 [facility] Creatinine 2.15 mg/dL High 0.67-1.[address] [place], [place] [id number] [phone] Egfr Non- 29.6 >60 Egfr 35.9 >60 12 Laboratory test 11/30/2018 [facility] C Reactive 1.21 mg/L Normal <8.[address] [place] [address] [phone] Erythrocyte Sed Rate 11 mm/Hr Normal 0-19 [...] 5 Kidney failure <15 (or dialysis) 3 Desirable: <150 Borderline High: 150-199 High: 200-499 Very High: >500 4 Desirable: <200 Borderline High: 200-239 High: >239 5 Low: <40 Desirable: 40-60 High: >60 6 Desirable: <100 Near Optimal: 100-129 Borderline High: 130-159 High: 160-189 Very High: >189 7 Normal Range 180 to 914 Indeterminate Range 145 to 180 Deficient Range <145 8 Because ethnic data is not always readily [...] 15-29 5 Kidney failure <15 (or dialysis) 9 Because ethnic data is not always [...] dialysis) Procedures Date Code Description Status 04/25/2019 41054 Icd Eval Sing,Dual,Multi Lead Remote Recpt Transm Tech Rev Completed Tech S 04/25/2019 48717 Icd Eval Sing,Dual,Multi Lead Remote Recpt Transm Tech Rev Completed Tech S 04/25/2019 68773 Pacemaker Check Remote Up To 90Days Single,Dual,Multiple Completed Lead 04/25/2019 49400 Pacemaker Check Remote Up To 90Days Single,Dual,Multiple Completed Lead 04/22/2019 09909 ECHO Transthorasic Realtime 2D W Doppler & Color Flow Hosp Completed 04/04/2019 78347 EKG Tracing & Interpretation Completed 03/28/2019 63504 Pace Maker Eval W/Iterative Adjment Dual Lead Completed 03/28/2019 47397 Pace Maker Eval W/Iterative Adjment Dual Lead Completed 03/23/2019 23407 ECHO Transthoracic, Real-Time 2D With Doppler And Color Completed Flow 03/23/2019 71906 ECHO Transthoracic, Real-Time 2D With Doppler And Color Completed Flow 03/14/2019 10575 Cardioversion Completed 03/14/2019 74108 Moderate Sedation Services; Same Phys Intl 15 Mins; PT >= Completed 5 Years 03/14/2019 06003 EKG, Interpretation Only Completed 03/04/2019 36352 EKG Tracing & Interpretation Completed 03/02/2019 48570 EKG Tracing & Interpretation Completed 12/28/2018 85283 Pace Maker Eval W/Iterative Adjment Dual Lead Completed 12/28/2018 80226 Pace Maker Eval W/Iterative Adjment Dual Lead Completed 12/23/2018 12805 Icd Eval Sing,Dual,Multi Lead Remote Recpt Transm Tech Rev Completed Tech S 12/23/2018 02283 Icd Eval Sing,Dual,Multi Lead Remote Recpt Transm Tech Rev Completed Tech S 12/23/2018 56587 Pacemaker Check Remote Up To 90Days Single,Dual,Multiple Completed Lead 12/23/2018 58694 Pacemaker Check Remote Up To 90Days Single,Dual,Multiple Completed Lead Medical Devices Description No Information Available Encounters Type Date Location Provider Dx Diagnosis Office Visit 05/05/2019 [facility] Hedy Jackson MD 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 N18.3 Chronic kidney disease, stage 3 (moderate) I50.30 Unspecified diastolic (congestive) heart failure R60.9 Edema, unspecified Office Visit 05/04/2019 [facility] Dian I50.33 Acute on chronic 9:45a thom Knott MD diastolic Hospitalists (congestive) heart failure 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 N18.4 Chronic kidney disease, stage 4 (severe) E11.621 Type 2 diabetes mellitus with foot ulcer L97.909 Non-prs chronic ulc unsp prt of unsp low leg w unsp severity Office Visit 05/03/2019 9:45a [facility] Dian I12.9 Hypertensive Assocthom MD chronic kidney Hospitalists disease w stg 1-4/unsp chr kdny I50.33 Acute on chronic diastolic (congestive) heart failure I48.92 Unspecified atrial flutter E11.22 Type 2 diabetes mellitus w diabetic chronic kidney disease N18.4 Chronic kidney disease, stage 4 (severe) E03.9 Hypothyroidism, unspecified Office Visit 04/27/2019 9:00a [facility] Hedy Jackson, I12.9 Hypertensive MD chronic kidney disease w stg 1-4/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 N18.3 Chronic kidney disease, stage 3 (moderate) R60.9 Edema, unspecified I50.32 Chronic diastolic (congestive) heart failure Office Visit 04/23/2019 1:34p [facility] Mulugeta Bender I13.0 Hyp hrt & chr Of [facility] DO Sergio FACC kdny dis w hrt fail and stg 1-4/unsp chr kdny I50.33 Acute on chronic diastolic (congestive) heart failure E11.22 Type 2 diabetes mellitus w diabetic chronic kidney disease N18.9 Chronic kidney disease, unspecified Office Visit 04/23/2019 [facility] Moreno Pastor I50.33 Acute on chronic 1:16p Assoc,thom Guillen M.D.,FACP diastolic Hospitalists (congestive) heart failure Office Visit 04/23/2019 [facility] Hedy Jackson, N17.9 Acute kidney 9:16a MD failure, unspecified E11.22 Type 2 diabetes mellitus w diabetic chronic kidney disease N18.9 Chronic kidney disease, unspecified Office Visit 04/22/2019 1:33p [facility] Mulugeta S. 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 Assessments Date Code Description Provider 05/10/2019 N18.4 Chronic kidney disease, stage 4 Hedy Jackson MD (severe) 05/10/2019 I50.30 Unspecified diastolic (congestive) Mulugeta Hill, DO FACC heart failure 05/10/2019 I50.32 Chronic diastolic (congestive) heart Hedy Jackson MD failure 05/10/2019 N18.9 Chronic kidney disease, unspecified Mulugeta Hill, DO [facility] 05/10/2019 R60.9 Edema, unspecified Hedy Jackson MD 05/10/2019 I48.92 Unspecified atrial flutter Mulugeta Hill, DO [facility] 05/10/2019 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, unspecified Hedy Jackson MD 05/10/2019 E03.9 Hypothyroidism, unspecified Mulugeta Hill, DO [facility] 05/10/2019 I50.32 Chronic diastolic (congestive) heart Mulugeta Hill, DO [facility] failure 05/10/2019 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 Hedy Jackson MD disease with heart failure and stage 1 through stage 4 chronic kidney disease, or unspecified chronic kidney disease 05/10/2019 Z95.0 Presence of cardiac pacemaker Mulugeta Hill, DO [facility] 05/10/2019 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 block, complete Mulugetadanie Hill, DO [facility] 05/10/2019 I48.0 Paroxysmal atrial fibrillation Mulugeta Hill, DO [facility] 05/10/2019 I25.2 Old myocardial infarction Mulugeta Hill, DO [facility] 05/10/2019 Z95.2 Presence of prosthetic heart valve Mulugeta Hill, DO [facility] 05/10/2019 I44.7 Left bundle-branch block, unspecified Mulugeta Hill, DO [facility] 05/10/2019 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, unspecified Mulugeta Hill, DO [facility] 05/10/2019 K92.2 Gastrointestinal hemorrhage, Mulugeta Hill, DO [facility] unspecified 05/10/2019 I73.9 Peripheral vascular disease, Mulugeta Hill, DO [facility] unspecified 05/05/2019 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 Hedy Jackson MD disease with heart failure and stage 1 [...] unspecified lower leg with unspecified severity 05/03/2019 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 Dian [...] of cardiac pacemaker Mulugeta Hill DO FACC 04/25/2019 Z95.0 Presence of cardiac pacemaker Remote Device Checks 04/25/2019 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 block, complete Mulugeta Hill DO FACC 04/25/2019 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 block, complete Remote Device Checks 04/23/2019 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 [facility] with heart failure and stage 1 through stage 4 chronic kidney disease, or unspecified chronic kidney disease 04/23/2019 N17.9 Acute kidney failure, unspecified Hedy Jackson MD 04/23/2019 I50.33 Acute on chronic diastolic Mulugeta Hill DO FACC (congestive) heart failure 04/23/2019 I50.33 Acute on chronic diastolic Moreno Guillen M.D.,FACP (congestive) heart failure 04/23/2019 E11.22 Type 2 diabetes mellitus with [facility]geta Hill [facility] chronic kidney disease 04/23/2019 E11.22 Type 2 diabetes mellitus with Hedy Jackson MD diabetic chronic kidney disease 04/23/2019 N18.9 Chronic kidney disease, unspecified Mulugeta Hill DO FACC 04/23/2019 N18.9 Chronic kidney disease, unspecified Hedy Jackson MD 04/22/2019 I50.33 Acute on chronic diastolic Mulugeta Hill DO FACC (congestive) heart failure 04/22/2019 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 Mulugeta Hill DO FACC disease with heart failure and stage 1 through stage 4 chronic kidney disease, or unspecified chronic kidney disease 04/22/2019 I48.92 Unspecified atrial flutter Moreno Guillen M.D.,[facility] 04/22/2019 E03.9 Hypothyroidism, unspecified [facility] M.D.,[facility] 04/22/2019 N17.9 Acute kidney failure, unspecified Hedy Jackson MD 04/22/2019 N18.4 Chronic kidney disease, stage 4 Moreno Guillen M.D., FACP (severe) 04/22/2019 E11.22 Type 2 diabetes mellitus with Mulugeta Hill, DO [facility] diabetic chronic kidney disease 04/22/2019 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 Hedy Jackson MD disease with heart failure and stage 1 through stage 4 chronic kidney disease, or unspecified chronic kidney disease 04/22/2019 N18.9 Chronic kidney disease, unspecified Mulugeta Hill DO [facility] 04/22/2019 N18.9 Chronic kidney disease, unspecified Hedy Jackson MD 04/22/2019 I48.0 Paroxysmal atrial fibrillation Mulugeta Hill DO [facility] 04/22/2019 I25.2 Old myocardial infarction Mulugeta Hill DO [facility] 04/22/2019 E87.1 Hypo-osmolality and hyponatremia Hedy Jackson MD 04/22/2019 Z98.61 Coronary angioplasty status Mulugeta Hill DO [facility] 04/21/2019 R79.89 Other specified abnormal findings of Nikkie Smith M.D. blood chemistry 04/21/2019 R60.0 Localized edema Nikkie Smith M.D. 04/21/2019 R53.83 Other fatigue Nikkie Smith M.D. 04/04/2019 I48.0 Paroxysmal atrial fibrillation Mulugeta Hill DO [facility] 04/04/2019 I48.92 Unspecified atrial flutter Mulugeta Hill DO [facility] 04/04/2019 Z95.0 Presence of cardiac pacemaker Mulugeta Hill DO [facility] 04/04/2019 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 block, complete Mulugeta Hill DO [facility] 04/04/2019 Z95.2 Presence of prosthetic heart valve Mulugeta Hill, DO FACC 04/04/2019 I50.32 Chronic diastolic (congestive) heart Mulugeta Hill, DO FACC failure 04/04/2019 N18.9 Chronic kidney disease, unspecified Mulugeta Hill, DO FACC 04/04/2019 I25.2 Old myocardial infarction Mulugeta Hill, DO FACC 04/04/2019 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, DO FACC [place] coronary artery with 04/04/2019 I44.7 Left bundle-branch block, unspecified Mulugeta Hill, DO FACC 04/04/2019 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, unspecified Mulugeta Hill, DO FACC 04/04/2019 K92.2 Gastrointestinal hemorrhage, Mulugeta Hill, DO FACC unspecified 04/04/2019 E78.5 Hyperlipidemia, unspecified Mulugeta Hill, [...] heart disease of Mulugeta Hill, DO FACC [place] coronary artery with 03/04/2019 Z95.2 Presence of [...] heart disease of Mulugeta Hill, DO FACC [place] coronary artery with 03/02/2019 Z95.2 Presence of prosthetic heart valve Mulugeta Hill, DO FACC 03/02/2019 I50.33 Acute on chronic diastolic Mulugeta Hill, DO FACC (congestive) heart failure 03/02/2019 I44.7 Left bundle-branch [...] DO FACC 12/09/2018 I48.92 Unspecified atrial flutter Mulugetadanie Hill, DO FACC 12/09/2018 I50.32 Chronic diastolic (congestive) heart Mulugetadanie Yaono, DO FACC failure 12/09/2018 N18.9 Chronic kidney disease, unspecified Mulugetadanie Yaono, DO FACC 12/09/2018 I25.2 Old myocardial infarction Mulugetadanie Yaono, DO FACC 12/09/2018 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 Yaono, DO FAC [place] coronary artery with 12/09/2018 Z95.2 Presence of prosthetic heart valve Mulugeta Hill DO [facility] Plan of Treatment Future Appointment(s):06/13/2019 11:30 am - Hedy Jackson MD at [facility] [id number] /11/2020 10:20 am - Mulugeta Hill DO FACC at [facility]2018 - Hedy Jackson MDN18.4 Chronic kidney disease, stage 4 (severe)Follow up: 1 month with labsI50.32 Chronic diastolic (congestive) heart aghwgkjH18.9 Edema , tdmpqrlnukhP95.9 Amyloidosis, ifocdqiubzfM17.0 Hypertensive heart and chronic kidney disease with heart failure and stage 1 through stage 4 chronic kidney disease, or unspecified chronic kidney disease Functional Status Description No Information Available Mental Status Description No Information Available Referrals Refer to Reason for Referral Status Appt Date Beltran Umanzor MD atypical atrial flutter management Sent [address] [place] [address] [phone]
--- OUTSIDE RECORDS SUMMARY | 2019-07-02 19:00 | XMS REPORT | Continuity of Care Document ---
:1935 External Reference #:[id number] Author Name Lisa Will PA (transmitted by agent of provider Gideon Miner) Address [address] [facility], [address] [place] [address] Care Team Providers Name Role Phone [place] [facility] - Care Team Information Property Site Manager Neurology [facility] - Spec/Tech, Care Team Information Property Site Manager [phone] Cardiovascular Mulugeta Hill DO - Cardiovascular Care Team Information Property Site Manager Disease Rasheed Vera MD - Endocrinology, Care Team Information Property Site Manager [phone] Diabetes & Metabolism Ximena Navarro MD - Pulmonary Care Team Information Property Site Manager Disease Problems Active Problems Provider Date Benign essential hypertension Arley Harp M.D. Onset: 02/16/2004 Type 2 diabetes mellitus Arley Harp M.D. Onset: 02/16/2004 Hyperlipidemia Arley Harp M.D. Onset: 02/16/2004 Carpal tunnel syndrome Arley Harp M.D. Onset: 07/09/2011 Diabetic polyneuropathy Arley Harp M.D. Onset: 07/09/2011 Cellulitis Gideon Miner D.O. Onset: 05/02/2013 Atrial fibrillation Arley Harp M.D. Onset: 02/08/2016 Peripheral vascular disease Arley Harp M.D. Onset: 02/08/2016 Chronic kidney disease stage 3 Arley Harp M.D. Onset: 05/14/2016 Paroxysmal atrial fibrillation Lisa Will PA Onset: 04/02/2017 Amyloidogenic transthyretin amyloidosis Arley Harp M.D. Onset: 2018 Coronary atherosclerosis Arley Harp M.D. 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 Onset: mellitus Social History Type Date Description Comments Sex Unknown Tobacco Use Reviewed: 08/01/14 Denies Cigarette Use Smoking Status Reviewed: 08/01/14 Denies Cigarette Use ETOH Use Denies alcohol use Allergies, Adverse Reactions, Alerts Active Allergies Reaction Severity Comments Date Ultram Dizzyness 05/15/2003 Medications Active Medications SIG Qnty Indications Ordering Provider Date Bumetanide 4 tablets daily I50.32 Unknown 04/23/2019 1mg Tablets every morning; for fluid/heart failure I10 Levothyroxine Sodium take one tablet by E03.9 Rasheed Vera MD 04/23/2019 mouth every morning 75mcg Tablets on empty stomach for thyroid Aspirin one tab po daily for I25.10 Mulugeta Hill, 03/02/2019 81mg Tablets heart protection DO Prosthetic Foot Shell 1units S88.011S Arley Harp, 01/17/2019 For R Leg BK M.D. Prosthesis Vyndaqel 4 tablets every Unknown 12/08/2018 20mg Capsules evening; for cardiac amyloidosis Januvia take one tablet by E11.21 Rasheed Vera MD 11/30/2018 100mg Tablets mouth every day; for blood sugar control E11.59 Amiodarone HCL 1 by mouth every I48.91 Unknown 11/18/2018 100mg Tablets day; for heart rhythm control PT For Gait Training, Arley Harp, 10/21/2018 Leg Strengthening, Back M.D. Pain Supplies For Right Leg socket replacement; Z89.511 Arley Harp, 03/09 BK Prosthesis spectra sock; foot M.D. shell Lantus inject 16 units in E11.21 Unknown 01/12/2018 100Unit/ML Solution am E11.59 Clopidogrel Bisulfate 1 by mouth every day Unknown 01/07/2018 75mg Tablets Eliquis Take One Tablet By Unknown 11/23/2017 2.5mg Tablets Mouth Twice A Day Calcium + D 1 a day Unknown 11/11/2017 Omeprazole one po daily Unknown 11/11/2017 20mg Capsules Atorvastatin Calcium take one tablet by E11.59 Mulugeta Hill, 2016 80mg mouth every day for Tablets cholesterol I25.[address] 1 Tablet Under Tongue Unknown 07/30/2016 0.4mg Tablets Sub Every 5 Minutes Up To 3 Doses as Needed Spironolactone 1 tablet daily in the Unknown 25mg Tablets morning; for fluid/heart failure Immunizations CPT Code Status Date Vaccine Lot # [id number] Given 02/06/2015 Prevnar 13 [id number] Given 07/25/2013 Adacel or Boostrix, TDaP [id number] Given 12/14/2002 Pneumococcal Immunization 02090 Given 12/14/2002 Td Immunization 42250 Given 12/27/1999 Td Immunization [id number] Refused 03/02/2007 Zostavax Vital Signs Date Vital Result Comment 11/19/2018 10:42am BP Systolic 138 mmHg BP Diastolic 60 mmHg Height 68.50 inches 5'8.50" Weight 170.00 lb BMI (Body Mass Index) 25.5 kg/m2 05/21/2018 1:12pm BP Systolic 122 mmHg BP Diastolic 52 mmHg Height 68.5 inches 5'8.50" with shoes Weight 172.00 lb with shoes BMI (Body Mass Index) 25.8 kg/m2 Results Test Acquired Date Facility Test Result H/L Range Note Basic Metabolic Panel 05/09/2019 [facility] Sodium 130 mmol/L Low 135 -145 [phone] Potassium 4.9 mmol/L Normal 3.5-5.0 Chloride 86 mmol/L Low 101-111 Co2 Carbon Dioxide 32 mmol/L Normal 22-32 Anion Gap 12 mmol/L High 2-11 Glucose 279 mg/dL High 70-100 Blood Urea Nitrogen 100 mg/dL High 6-24 Creatinine 3.04 mg/dL High 0.67-1.17 BUN/Creatinine Ratio 32.9 High 8-20 Calcium 9.7 mg/dL Normal 8.6-10.3 Egfr Non- 19.9 >60 Egfr 24.1 >60 1 Urine Microalbumin 05/05/2019 [facility] Ur Microalbumin 90.6 mg/L Random [phone] (mg/L) Urine Creatinine 23.75 mg/dL Urine Microalbumin/Creatinine 381.4 High <31 Comp Metabolic Panel 05/05/2019 [facility] Sodium 137 mmol/L Normal 135-145 [phone] Potassium 4.3 mmol/L Normal 3.5-5.0 Chloride 92 [...] >60 Egfr 24.3 >60 2 Lipid Profile (Trig/Chol/HDL) 05/05/2019 [facility] Triglycerides 61 mg /dL 3 [phone] Cholesterol 140 mg/dL 4 HDL Cholesterol 69.3 mg/dL 5 LDL Cholesterol 59 mg/dL 6 Liver Function 05/05/2019 [facility] Direct Bilirubin 0.30 mg/dL High 0.03-0.18 Panel [phone] Indirect Bilirubin 0.8 mg/dL Normal 0.3-1.0 Laboratory test 05/05/2019 [facility] Vitamin B12 1304 pg/mL High 180 -914 7 finding [phone] Laboratory test 05/02/2019 [facility] Magnesium 2.2 mg/dL Normal 1.9- 2.7 finding [phone] Troponin-I (TnI) 0.14 ng/mL Critical high <0.03 8 TSH (Thyroid Stim Horm) 17.42 mcIU/mL High 0.34-5.60 Comp Metabolic Panel 05/02/2019 [facility] Sodium 130 mmol/L Low 135- 145 [phone] Potassium 4.7 mmol/L Normal 3.5-5.0 Chloride 88 mmol/L Low 101-111 Co2 Carbon Dioxide 31 mmol/L Normal 22-32 Anion Gap 11 mmol/L Normal 2-11 Glucose 141 mg/dL High 70-100 Blood Urea Nitrogen 95 mg/dL High 6-24 Creatinine 3.38 mg/dL High 0.67-1.17 BUN/Creatinine Ratio 28.1 High 8-20 Calcium 9.6 mg/dL Normal 8.6-10.3 Total Protein 6.9 g/dL Normal 6.4-8.9 Albumin 4.0 g/dL Normal 3.2-5.2 Globulin 2.9 g/dL Normal 2-4 Albumin/Globulin Ratio 1.4 Normal 1-3 Total Bilirubin 0.70 mg/dL Normal 0.2-1.0 Alkaline Phosphatase 60 U/L Normal 34-104 Alt 46 U/L Normal 7-52 Ast 31 U/L Normal 13-39 Egfr Non- 17.6 >60 Egfr 21.3 >60 9 Laboratory test 05/02/2019 [facility] Lactic Acid 1.2 mmol/L Normal 0.5-2.0 10 finding [phone] B-Type Natriuretic Peptide BNP > 1300 pg/mL High <=100 CBC Auto Diff 05/02/2019 [facility] White Blood 9.6 10^3/uL Normal 3.5-10.8 [phone] Count Red Blood Count 3.99 10^6/uL Low 4.18-5.48 Hemoglobin 11.4 g/dL Low 14.0-18.0 Hematocrit 34 % Low 42-52 Mean Corpuscular Volume 86 fL Normal 80-94 Mean Corpuscular Hemoglobin 29 pg Normal 27-31 Mean Corpuscular HGB Conc 33 g/dL Normal 31-36 Red Cell Distribution Width 15 % Normal 10-15 Platelet Count 175 10^3/uL Normal 150-450 Mean Platelet Volume 7.9 fL Normal 7.4-10.4 Abs Neutrophils 7.8 10^3/uL High 1.5-7.7 Abs Lymphocytes 0.4 10^3/uL Low 1.0-4.8 Abs Monocytes 1.2 10^3/uL High 0-0.8 Abs Eosinophils 0.1 10^3/uL Normal 0-0.6 Abs Basophils 0.0 10^3/uL Normal 0-0.2 Abs Nucleated RBC 0.0 10^3/uL Granulocyte % 81.7 % Lymphocyte % 4.1 % Monocyte % 12.3 % Eosinophil % 1.5 % Basophil % 0.4 % Nucleated Red Blood Cells % 0.1 Urinalysis Profile 05/02/2019 [facility] Urine Color Straw [phone] Urine Appearance Clear Urine Specific [place] 1.004 Low 1.010-1.030 Urine pH 7.0 Normal 5-9 Urine Urobilinogen Negative Negative Urine Ketones Negative Negative Urine Protein Negative Negative Urine Leukocytes Negative Negative Urine Blood 1+ Abnormal Negative Urine Nitrite Negative Negative Urine Bilirubin Negative Negative Urine Glucose Negative Negative Urine White Blood Cell Absent Absent Urine Red Blood Cell Trace(0-2/hpf) Absent Urine Bacteria Absent Absent Basic Metabolic Panel 04/27/2019 [facility] Sodium 133 mmol/L Low 135 -145 [phone] Potassium 4.7 mmol/L Normal 3.5-5.0 Chloride 91 mmol/L Low 101-111 Co2 Carbon Dioxide 33 mmol/L High 22-32 Anion Gap 9 mmol/L Normal 2-11 Calcium 9.7 mg/dL Normal 8.6-10.3 Glucose 264 mg/dL High 70-100 Blood Urea Nitrogen 83 mg/dL High 6-24 Creatinine 2.93 mg/dL High 0.67-1.17 BUN/Creatinine Ratio 28.3 High 8-20 Egfr Non- 20.7 >60 Egfr 25.1 >60 11 Laboratory test 04/21/2019 [facility] Lactic Acid 1.2 mmol/L Normal 0.5-2.0 12 finding [phone] B-Type Natriuretic Peptide BNP 1096 pg/mL High <=100 Inr/Protime 04/21/2019 [facility] Inr 1.54 High 0.82-1.09 13 [phone] Laboratory test 04/21/2019 [facility] Partial 36.8 Normal 26.0-38.0 finding [phone] Thrombo Time seconds PTT CBC Auto Diff 04/21/2019 [facility] White Blood 9.7 10^3/uL Normal 3.5-10.8 [phone] Count Red Blood Count 4.11 10^6/uL Low 4.18-5.48 Hemoglobin 12.0 g/dL Low 14.0-18.0 Hematocrit 36 % Low 42-52 Mean Corpuscular Volume 87 fL Normal 80-94 Mean Corpuscular Hemoglobin 29 pg Normal 27-31 Mean Corpuscular HGB Conc 33 g/dL Normal 31-36 Red Cell Distribution Width 15 % Normal 10-15 Platelet Count 164 10^3/uL Normal 150-450 Mean Platelet Volume 8.3 fL Normal 7.4-10.4 Abs Neutrophils 8.2 10^3/uL High 1.5-7.7 Abs Lymphocytes 0.3 10^3/uL Low 1.0-4.8 Abs Monocytes 1.0 10^3/uL High 0-0.8 Abs Eosinophils 0.2 10^3/uL Normal 0-0.6 Abs Basophils 0.1 10^3/uL Normal 0-0.2 Abs Nucleated RBC 0.0 10^3/uL Granulocyte % 83.7 % Lymphocyte % 3.6 % Monocyte % 10.3 % Eosinophil % 1.8 % Basophil % 0.6 % Nucleated Red Blood Cells % 0.0 Comp Metabolic Panel 04/21/2019 [facility] Sodium 128 mmol/L Low 135- 145 [phone] Potassium 4.5 mmol/L Normal 3.5-5.0 Chloride 91 mmol/L Low 101-111 Co2 Carbon Dioxide 29 mmol/L Normal 22-32 Anion Gap 8 mmol/L Normal 2-11 Glucose 306 mg/dL High 70-100 Blood Urea Nitrogen 80 mg/dL High 6-24 Creatinine 2.71 mg/dL High 0.67-1.17 BUN/Creatinine Ratio 29.5 High 8-20 Calcium 9.4 mg/dL Normal 8.6-10.3 Total Protein 6.9 g/dL Normal 6.4-8.9 Albumin 3.9 g/dL Normal 3.2-5.2 Globulin 3.0 g/dL Normal 2-4 Albumin/Globulin Ratio 1.3 Normal 1-3 Total Bilirubin 0.60 mg/dL Normal 0.2-1.0 Alkaline Phosphatase 62 U/L Normal 34-104 Alt 37 U/L Normal 7-52 Ast 25 U/L Normal 13-39 Egfr Non- 22.7 >60 Egfr 27.5 >60 14 Laboratory 04/21/2019 [facility] C Reactive 6.06 mg/L Normal <8.01 test finding [phone] Protein CKMB 04/21/2019 [facility] CKMB ng/mL 5.9 ng/mL Normal 0.6-6.3 [phone] Laboratory 04/21/2019 [facility] Troponin-I 0.10 ng/mL Critical < 0.03 15 test finding [phone] (TnI) high Urinalysis 04/21/2019 [facility] Urine Color Yellow Profile [phone] Urine Appearance Clear Urine Specific [place] 1.010 Normal 1.010-1.030 Urine pH 5.0 Normal 5-9 Urine Urobilinogen Negative Negative Urine Ketones Negative Negative Urine Protein Negative Negative Urine Leukocytes Negative Negative Urine Blood Negative Negative Urine Nitrite Negative Negative Urine Bilirubin Negative Negative Urine Glucose Negative Negative 1 Because ethnic data is not always [...] 145 to 180 Deficient Range <145 8 Result TnIDx:0.14 Called to [id number] at: 21:20:12 by:[id number] Read back by: [id number] Troponin-I testing on Plasma Separator Tubes (PST) has a known false positive rate of 0.20-0.40%. All positive troponins reflex immediately to secondary confirmatory testing. Using the [employer] 800 Access Immunoassay systems, the 99th percentile upper reference limit was demonstrated to be < 0.03 ng/mL. 9 Because ethnic data is not always [...] 5 Kidney failure <15 (or dialysis) 10 [facility] Severe Sepsis and Septic Shock Management Bundle Measure requires all lactic acids initially measuring >2.0 mmol/L be repeated. 11 Because ethnic data is not always [...] 5 Kidney failure <15 (or dialysis) 12 [facility] Severe Sepsis and Septic Shock Management Bundle Measure requires all lactic acids initially measuring >2.0 mmol/L be repeated. 13 Standard intensity warfarin therapeutic range: 2.0-3.0 High intensity warfarin therapeutic range: 2.5-3.5 14 Because ethnic data is not always readily [...] 15-29 5 Kidney failure <15 (or dialysis) 15 Result TnIDx:0.10 Called to [id number] at: 21:31:05 by:[id number] Read back by: [id number] Troponin-I testing on Plasma Separator Tubes (PST) has a known false positive rate of 0.20-0.40%. All positive troponins reflex immediately to secondary confirmatory testing. Using the [employer] D[employer]I 800 Access Immunoassay systems, the 99th percentile upper reference limit was demonstrated to be < 0.03 ng/mL. Procedures Date Code Description Status 11/19/2018 [id number] Diabetic Foot Exam Completed 11/29/2016 [id number] Diabetic Retinal Eye Exam Completed 08/01/2014 [id number] Colonoscopy Completed Medical Devices Description No Information Available Encounters Description No Information Available Assessments Description No Information Available Plan of Treatment 11/19/2018 - Arley Harp M.D.E11.59 Type 2 diabetes mellitus with other circulatory complicationFollow up:RTO 6 months recheck chr probs Request last chart note from Dr Vera's office, and please request theystart sending us office visit notes moving forward.I25.10 Atherosclerotic heart disease of [place] coronary artery withN18.3 Chronic kidney disease, stage 3 (moderate)I10 Essential (primary) rundkeswuyhpM01.0 Paroxysmal atrial iunvccnxmvixX92.82 Wild- type transthyretin-related (Attr) vcoyxjamtrxF74.2 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
--- OUTSIDE RECORDS SUMMARY | 2019-07-02 19:00 | XMS REPORT ---
:1935 Author Organization [facility] Care Team Providers Name Role Phone Unavailable Unavailable Unavailable Problems Condition Condition Condition Status Onset Resolution Last Treating Comments Name Details Category Date Date Treatment Clinician Date Heart Heart Diagnosis Active Terra failure, failure, 07-01 Ingrahm unspecified unspecified [id number] Allergies, Adverse Reactions, Alerts Allergy Allergy Status Severity Reaction(s) Onset Inactive Treating Comments Name Type Date Date Clinician Unknown None Active Unknown None Unknown No Known Allergies For This Patient Medications Ordered Filled Start Stop Current Ordering Indication Dosage Frequency Signature Comments Components Medication Medication Date Date Medication? Clinician (SIG) Name Name No Known No Known No None None None Medications Medications For This For This Patient Patient Procedures This patient has no known procedures. Results This patient has no known results.
--- OUTSIDE RECORDS SUMMARY | 2019-07-02 19:00 | XMS REPORT | Continuity of Care Document ---
:1935 External Reference #:[id number] Author Name Mulugeta Hill DO [facility] (transmitted by agent of provider Maureen Quiles) Address [address] [place] [address] Care Team Providers Name Role Phone Arley Harp MD - Internal Care Team Information Coat Padder [phone] Medicine Problems Active Problems Provider Date Paroxysmal atrial fibrillation Mulugeta Hill DO [facility] Onset: 02/12/2016 Social History Type Date Description Comments Sex Unknown Tobacco Use Start: Unknown Never Smoked Cigarettes Smoking Status Reviewed: 05/05/19 Never Smoked Cigarettes ETOH Use Denies alcohol [...] 03/01/[address] every day DO [facility] Eliquis 1 tablet by 60tabs I48.0 Mulugeta Hill, 11/23/2017 2.5mg Tablets mouth twice a DO FACC day. Atorvastatin Calcium 1 by mouth 90tabs E11.9 Mulugeta Hill, 04/13/2017 80mg every day DO [facility] Tablets Nitrostat one sl q5min up 25tabs Mulugeta Hill, 07/30/2016 0.4mg Tablets Sub to 3 doses as DO [facility] needed Levothyroxine Sodium 1 by mouth Unknown 75mcg every day Tablets Januvia 1 by mouth Unknown 100mg Tablets every day Amiodarone HCL 1 by mouth 90tabs Mulugeta Hill, 200mg every day DO [facility] Tablets Vyndaqel take 4 caps at Unknown 20mg Capsules hs Lantus Solostar 12 units sub-q Unknown 100Unit/ML once daily Solution Pen-Inject Calcium + D3 1 by mouth 90tabs Unknown [id number] every day Tablets Multi For Him 50+ 1 by mouth Unknown Tablets every day History Medications Bumex Mulugeta Hill, 04/11/2019 - 2mg Tablets DO [facility] 04/11/2019 Bumex take 4 tablets (4 180tabs Mulugeta Hill, 04/11/2019 - 1mg Tablets mg) by mouth DO [facility] 05/05/2019 daily Torsemide take 2 by mouth 90tabs Mulugeta Hill, 03/24/2019 - 20mg daily DO [facility] 04/11/2019 Tablets Aspirin 81 Take 1 by mouth 90tabs Z95.0 Mulugeta Hill, 12/09/2018 - 81mg every day DO [facility] 03/01/[address] Medications Administered in Office Medication SIG Qnty Indications Ordering Provider Date Inj, Regadenoson, 0.1 MG Mulugeta Hill, DO [facility] 07/30/2016 Injection Aminophylline Mulugeta Hill, DO [facility] 07/30/2016 Injection Technetium TC 99M Mulugeta Hill, DO [facility] 07/30/2016 Tetrofosmin, Per Unit Dose Up To 40 Millicuries Injection Inj, Regadenoson, 0.1 MG Mulugeta Hill, DO [facility] 10/02/2015 Injection Inj, Regadenoson, 0.1 MG Leticia Woodruff M.D. 10/02/2015 Injection Technetium TC 99M Mulugeta Hill DO [facility] 10/02/2015 Tetrofosmin, Per Unit Dose Up To 40 Millicuries Injection Depomedrol 80MG Rene Estrada M.D. 06/11/2010 Injection Immunizations Description No Information Available Vital Signs Date Vital Result Comment 05/05/2019 10:13am Height 69 inches 5'9" Weight 182.00 lb Heart Rate 67 /min BP Systolic Sitting 118 mmHg right arm reg cuff BP Diastolic Sitting 58 mmHg right arm reg cuff O2 % BldC Oximetry 96 % room air BMI (Body Mass Index) 26.9 kg/m2 04/27/2019 9:05am Height 69 inches 5'9" Weight 182.00 lb Heart Rate 69 /min BP Systolic Sitting 140 mmHg left arm reg cuff BP Diastolic Sitting 60 mmHg left arm reg cuff O2 % BldC Oximetry 96 % room air BMI (Body Mass Index) 26.9 kg/m2 Results Test Acquired Date Facility Test Result H/L Range Note Urine 05/05/2019 [facility] Ur Microalbumin 90.6 mg/L Microalbumin [address] (mg/L) [place] [address] [phone] Urine Creatinine 23.75 mg/dL Urine Microalbumin/Creatinine 381.4 High <31 Comp Metabolic 05/05/2019 [facility] Sodium 137 mmol/L Normal 135-[address] [place] [address] [phone] Potassium 4.3 mmol/L Normal 3.5-5.0 Chloride 92 [...] Egfr Non- 20.1 >60 Egfr 24.3 >60 1 Lipid Profile 05/05/2019 [facility] Triglycerides 61 mg/dL 2 (Trig/Chol/HDL) [address] [place] [address] [phone] Cholesterol 140 mg/dL 3 HDL Cholesterol 69.3 mg/dL 4 LDL Cholesterol 59 mg/dL 5 Liver Function 05/05/2019 [facility] Direct 0.30 mg/dL High 0.03-0.18 Panel [address] [place] [address] [phone] Indirect Bilirubin 0.8 mg/dL Normal 0.3-1.0 Laboratory test 05/05/2019 [facility] Vitamin B12 1304 pg/mL High 180-914 6 finding [address] [place], [place] [id number] [phone] Basic Metabolic 04/27/2019 [facility] Sodium 133 mmol/L Low 135-145 Panel [address] [place] [address] [phone] Potassium 4.7 mmol/L Normal 3.5-5.0 Chloride 91 mmol/L Low 101-111 Co2 Carbon Dioxide 33 mmol/L High 22-32 Anion Gap 9 mmol/L Normal 2-11 Calcium 9.7 mg/dL Normal 8.6-10.3 Glucose 264 mg/dL High 70-100 Blood Urea Nitrogen 83 mg/dL High 6-24 Creatinine 2.93 mg/dL High 0.67-1.17 BUN/Creatinine Ratio 28.3 High 8-20 Egfr Non- 20.7 >60 Egfr 25.1 >60 7 Basic Metabolic 04/02/2019 [facility] Sodium 138 mmol/L Normal 135-145 Panel [address] [place] [address] [phone] Potassium 4.1 mmol/L Normal 3.5-5.0 Chloride 94 mmol/L Low 101-111 Co2 Carbon Dioxide 34 mmol/L High 22-32 Anion Gap 10 mmol/L Normal 2-11 Glucose 203 mg/dL High 70-100 Blood Urea Nitrogen 78 mg/dL High 6-24 Creatinine 2.58 mg/dL High 0.67-1.17 BUN/Creatinine Ratio 30.2 High 8-20 Calcium 9.9 mg/dL Normal 8.6-10.3 Egfr Non- 24.0 >60 Egfr 29.1 >60 8 Basic Metabolic 03/22/2019 [facility] Sodium 133 mmol/L Low 135-[address] [place] [address] [phone] Potassium 4.0 mmol/L Normal 3.5-5.0 Chloride 92 mmol/L Low 101-111 Co2 Carbon Dioxide 31 mmol/L Normal 22-32 Anion Gap 10 mmol/L Normal 2-11 Glucose 161 mg/dL High 70-100 Blood Urea Nitrogen 84 mg/dL High 6-24 Creatinine 2.86 mg/dL High 0.67-1.17 BUN/Creatinine Ratio 29.4 High 8-20 Calcium 9.5 mg/dL Normal 8.6-10.3 Egfr Non- 21.3 >60 Egfr 25.8 >60 9 Laboratory test 03/02/2019 [facility] TSH (Thyroid 8.20 High 0.34-5.[address] Stim Horm) mcIU/[place] [address] [phone] Free T4 (Free Thyroxine) 0.88 ng/dL Normal 0.61-1.12 CBC Auto 03/02/2019 [facility] White Blood 8.2 10^3/uL Normal 3.5-10.[address] [place] [address] [phone] Red Blood Count 4.11 10^6/uL Low 4.18-5.48 [...] Blood Cells % 0.0 Laboratory test 03/02/2019 [facility] Magnesium 2.2 mg/dL Normal 1.9-2.[address] [place] [address] [phone] Comp Metabolic 03/02/2019 [facility] Sodium 135 mmol/L Normal 135-[address] [place] [address] [phone] Potassium 4.2 mmol/L Normal 3.5-5.0 Chloride 94 [...] Egfr Non- 24.6 >60 Egfr 29.7 >60 10 Laboratory test 11/30/2018 [facility] Blood Urea 67 mg/dL High 6-[address] [place] [address] [phone] Creatinine 11/30/2018 [facility] Creatinine 2.15 mg/dL High 0.67-1.[address] [place] [address] [phone] Egfr Non- 29.6 >60 Egfr 35.9 >60 11 Laboratory test 11/30/2018 [facility] C Reactive 1.21 mg/L Normal <8.[address] [place] [address] [phone] Erythrocyte Sed Rate 11 mm/Hr Normal 0-19 [...] 5 Kidney failure <15 (or dialysis) 2 Desirable: <150 Borderline High: 150-199 High: 200-499 Very High: >500 3 Desirable: <200 Borderline High: 200-239 High: >239 4 Low: <40 Desirable: 40-60 High: >60 5 Desirable: <100 Near Optimal: 100-129 Borderline High: 130-159 High: 160-189 Very High: >189 6 Normal Range 180 to 914 Indeterminate Range 145 to 180 Deficient Range <145 7 Because ethnic data is not always readily [...] 15-29 5 Kidney failure <15 (or dialysis) 8 Because ethnic data is not always [...] dialysis) Procedures Date Code Description Status 04/25/2019 06846 Icd Eval Sing,Dual,Multi Lead Remote Recpt Transm Tech Rev Completed Tech S 04/25/2019 06570 Icd Eval Sing,Dual,Multi Lead Remote Recpt Transm Tech Rev Completed Tech S 04/25/2019 64263 Pacemaker Check Remote Up To 90Days Single,Dual,Multiple Completed Lead 04/25/2019 74939 Pacemaker Check Remote Up To 90Days Single,Dual,Multiple Completed Lead 04/22/2019 44902 ECHO Transthorasic Realtime 2D W Doppler & Color Flow Hosp Completed 04/04/2019 74408 EKG Tracing & Interpretation Completed 03/28/2019 59741 Pace Maker Eval W/Iterative Adjment Dual Lead Completed 03/28/2019 40274 Pace Maker Eval W/Iterative Adjment Dual Lead Completed 03/23/2019 20084 ECHO Transthoracic, Real-Time 2D With Doppler And Color Completed Flow 03/23/2019 91538 ECHO Transthoracic, Real-Time 2D With Doppler And Color Completed Flow 03/14/2019 88030 Cardioversion Completed 03/14/2019 33064 Moderate Sedation Services; Same Phys Intl 15 Mins; PT >= Completed 5 Years 03/04/2019 65122 EKG Tracing & Interpretation Completed 03/02/2019 62495 EKG Tracing & Interpretation Completed 12/28/2018 33979 Pace Maker Eval W/Iterative Adjment Dual Lead Completed 12/28/2018 51665 Pace Maker Eval W/Iterative Adjment Dual Lead Completed 12/23/2018 26091 Icd Eval Sing,Dual,Multi Lead Remote Recpt Transm Tech Rev Completed Tech S 12/23/2018 54145 Icd Eval Sing,Dual,Multi Lead Remote Recpt Transm Tech Rev Completed Tech S 12/23/2018 36004 Pacemaker Check Remote Up To 90Days Single,Dual,Multiple Completed Lead 12/23/2018 70123 Pacemaker Check Remote Up To 90Days Single,Dual,Multiple Completed Lead Medical Devices Description No Information Available Encounters Type Date Location Provider Dx Diagnosis Office Visit 04/27/2019 [facility] Hedy Jackson MD 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 I13.0 Hyp hrt & chr Of Raegan Hill, DO FACC kdny dis w hrt fail and stg 1-4/unsp chr kdny I50.33 Acute on chronic diastolic (congestive) heart failure E11.22 Type 2 diabetes mellitus w diabetic chronic kidney disease N18.9 Chronic kidney disease, unspecified Office Visit 04/23/2019 9:16a [facility] Hedy Jackson, N17.9 Acute kidney MD failure, unspecified E11.22 Type 2 diabetes mellitus w diabetic chronic kidney disease N18.9 Chronic kidney disease, unspecified Office Visit 04/22/2019 1:33p [facility] Mulugeta S. 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 and stg 1-4/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 N18.9 Chronic kidney disease, unspecified I48.0 Paroxysmal atrial fibrillation I25.2 Old myocardial infarction Z98.61 Coronary angioplasty status Office Visit 04/22/2019 9:16a [facility] Hedy Jackson, N17.9 Acute kidney MD failure, unspecified I13.0 Hyp hrt & chr kdny dis w hrt fail and stg 1-4/unsp chr kdny N18.9 Chronic kidney disease, unspecified E87.1 Hypo-osmolality and hyponatremia Office Visit 04/21/2019 1:15p [facility] Nikkie Smith, R79.89 Other specified Assoc,pc MNae abnormal Hospitalists findings of blood chemistry R60.0 Localized edema R53.83 Other fatigue Office Visit 04/04/2019 2:00p [facility] Mulugeta S. 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, unspecified Office Visit 12/09/2018 10:20a [facility] Mulugeta Bender Z95.0 Presence of Of Raegan Hill DO cardiac FACC pacemaker 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 block, complete I48.0 Paroxysmal atrial fibrillation I48.92 Unspecified atrial flutter I50.32 Chronic diastolic (congestive) heart failure N18.9 Chronic kidney disease, unspecified I25.2 Old myocardial infarction 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 Assessments Date Code Description Provider 05/05/2019 I50.30 Unspecified diastolic (congestive) Hedy Jackson MD heart failure 05/05/2019 R60.9 Edema, genevieveified Hedy Jackson MD 05/05/2019 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 Hedy Jackson MD disease with heart failure and stage 1 through stage 4 chronic kidney disease, or unspecified chronic kidney disease 05/05/2019 N18.3 Chronic kidney disease, stage 3 Hedy Jackson MD (moderate) 05/05/2019 E11.22 Type 2 diabetes mellitus with Hedy Jackson MD diabetic chronic kidney disease 04/27/2019 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 Hedy Jackson MD with stage 1 through stage 4 chronic kidney disease, or unspecified chronic kidney disease 04/27/2019 E11.22 Type 2 diabetes mellitus with Hedy Jackson MD diabetic chronic kidney disease 04/27/2019 N18.3 Chronic kidney disease, stage 3 Hedy Jackson MD (moderate) 04/27/2019 R60.9 Edema, genevieveified Hedy Jackson MD 04/27/2019 I50.32 Chronic diastolic [...] I50.33 Acute on chronic diastolic Moreno Guillen M.D.,FAC (congestive) heart failure 04/23/2019 E11.22 Type 2 [...] Hill DO FACC (congestive) heart failure 04/22/2019 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 Mulugeta Hill DO FACC disease with heart failure and stage 1 through stage 4 chronic kidney disease, or unspecified chronic kidney disease 04/22/2019 N17.9 Acute kidney failure, unspecified Hedy Jackson MD 04/22/2019 E11.22 Type 2 diabetes mellitus with Mulugeta Hill DO FAC diabetic chronic kidney disease 04/22/2019 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 Hedy Jackson MD disease with heart failure and stage 1 through stage 4 chronic kidney disease, or unspecified chronic kidney disease 04/22/2019 N18.9 Chronic kidney disease, unspecified Mulugeta iHll, DO FACC 04/22/2019 N18.9 Chronic kidney disease, unspecified Hedy Jackson MD 04/22/2019 I48.0 Paroxysmal atrial fibrillation Mulugeta Hill DO FACC 04/22/2019 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 ,[facility] heart failure 04/22/2019 N18.4 Chronic kidney disease, stage 4 Moreno Guillen M.D., FAC (severe) 04/22/2019 I48.92 Unspecified atrial flutter Moreno Guillen M.D.,[facility] 04/22/2019 E03.9 Hypothyroidism, unspecified Moreno Guillen M.D.,[facility] 04/21/2019 R79.89 Other specified abnormal findings of Nikkie Smith M.D. blood chemistry 04/21/2019 R60.0 Localized edema Nikkie Smith M.D. 04/21/2019 R53.83 Other fatigue Nikkie Smith M.D. 04/04/2019 I48.0 Paroxysmal atrial fibrillation Mulugetadanie Yaono, DO [facility] 04/04/2019 I48.92 Unspecified atrial flutter Mulugetadanie Yaono, DO [facility] 04/04/2019 Z95.0 Presence of cardiac pacemaker Mulugetadanie Yaono, DO [facility] 04/04/2019 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 block, complete Mulugetadanie Hill, DO [facility] 04/04/2019 Z95.2 Presence of prosthetic heart valve Mulugetadanie Yaono, DO [facility] 04/04/2019 I50.32 Chronic diastolic (congestive) heart Mulugetadanie Yaono, DO [facility] failure 04/04/2019 N18.9 Chronic kidney disease, unspecified Mulugetadanie Yaono, DO [facility] 04/04/2019 I25.2 Old myocardial infarction Mulugetadanie Yaono, DO [facility] 04/04/2019 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, DO 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 with 04/04/2019 I44.7 Left bundle-branch [...] heart disease of Mulugeta Hill, DO 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 with 03/04/2019 Z95.2 Presence of prosthetic heart valve Mulugeta Hill, DO FACC 03/04/2019 R94.31 Abnormal electrocardiogram [ECG] Mulugeta Hill DO FACC [EKG] 03/02/2019 I48.92 Unspecified atrial [...] heart disease of Mulugeta Hill, DO 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 with 03/02/2019 Z95.2 Presence of [...] I48.0 Paroxysmal atrial fibrillation Mulugeta Hill, DO [facility] 12/23/2018 I48.0 Paroxysmal atrial fibrillation Remote Device Checks 12/09/2018 Z95.0 Presence of cardiac pacemaker Mulugeta Hill, DO [facility] 12/09/2018 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 block, complete Mulugeta Hill, DO [facility] 12/09/2018 I48.0 Paroxysmal atrial fibrillation Mulugeta Hill, DO [facility] 12/09/2018 I48.92 Unspecified atrial flutter Mulugeta Hill, DO [facility] 12/09/2018 I50.32 Chronic diastolic (congestive) heart Mulugeta Hill, DO [facility] failure 12/09/2018 N18.9 Chronic kidney disease, unspecified Mulugeta Hill, DO [facility] 12/09/2018 I25.2 Old myocardial infarction Mulugeta Hill, DO [facility] 12/09/2018 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 and stage 1 through stage 4 chronic kidney disease, or unspecified chronic kidney diseaseComments:- Blood pressure well pbmaidwiuzP27.3 Chronic kidney disease, stage 3 (moderate)Comments:- Worsening kidney function due to cardiorenal syndrome- We will follow up early next week with labsto make sure that the new prescriptions are controlling volume status and not affecting electrolytes, acid base, and kidney functionFollow up:EARLY NEXT WEEK WITH LABSE11.22 Type 2 diabetes mellitus with diabetic chronic kidney diseaseComments:- Deferred to primary care physician Functional Status Description No Information Available Mental Status Description No Information Available Referrals Refer to Reason for Referral Status Appt Date Beltran Umanzor MD atypical atrial flutter management Sent [address] [place] [address] [phone]
--- OUTSIDE RECORDS SUMMARY | 2019-07-02 19:00 | XMS REPORT | Continuity of Care Document ---
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 [phone] Medicine Problems Active Problems Provider Date Paroxysmal atrial fibrillation Mulugeta Hill DO [facility] Onset: 02/12/2016 Social History Type Date Description [...] Mulugeta Hill, 04/13/2017 80mg every day DO [facility] Tablets Nitrostat one sl q5min up 25tabs Mulugeta Hill, 07/30/2016 0.4mg Tablets Sub to 3 doses as DO [facility] needed Levothyroxine Sodium 1 by mouth Unknown 75mcg every day Tablets Januvia 1 by mouth Unknown 100mg Tablets every day Amiodarone HCL 1 by mouth 90tabs Mulugeta Hill, 200mg every day DO [facility] Tablets Vyndaqel take 4 caps at Unknown 20mg Capsules hs Lantus Solostar 15 units sub-q Unknown 100Unit/ML once daily Solution Pen-Inject Calcium + D3 1 by mouth 90tabs Unknown [id number] every day Tablets Multi For Him 50+ 1 by mouth Unknown Tablets every day History Medications Bumex Mulugeta Hill, 04/11/2019 - 2mg Tablets DO [facility] 04/11/2019 Bumex take 4 tablets (4 180tabs Mulugeta Hill, 04/11/2019 - 1mg Tablets mg) by mouth DO [facility] 05/05/2019 daily Torsemide take 2 by mouth 90tabs Mulugeta Hill, 03/24/2019 - 20mg daily DO [facility] 04/11/2019 Tablets Aspirin 81 Take 1 by mouth 90tabs Z95.0 Mulugeta Hill, 12/09/2018 - 81mg every day DO [facility] 03/01/[address] Medications Administered in Office Medication SIG Qnty Indications Ordering Provider Date Inj, Regadenoson, 0.1 MG Mulugeta Hill, DO [facility] 07/30/2016 Injection Aminophylline Mulugeta Hill, DO [facility] 07/30/2016 Injection Technetium TC 99M Mulugeta Hill, DO [facility] 07/30/2016 Tetrofosmin, Per Unit Dose Up To 40 Millicuries Injection Inj, Regadenoson, 0.1 MG Mulugeta Hill, DO [facility] 10/02/2015 Injection Inj, Regadenoson, 0.1 MG Leticia Woodruff M.D. 10/02/2015 Injection Technetium TC 99M Mulugeta Hill DO [facility] 10/02/2015 Tetrofosmin, Per Unit Dose Up To 40 Millicuries Injection Depomedrol 80MG Rene Estrada M.D. 06/11/2010 Injection Immunizations Description No Information Available Vital Signs Date Vital Result Comment 05/10/2019 10:04am Height 69 inches 5'9" Weight 170.00 lb with shoes Heart Rate 62 /min BP Systolic Sitting 110 mmHg Lue reg cuff BP Diastolic Sitting 64 mmHg Lue reg cuff Respiratory Rate 16 /min BMI (Body Mass Index) 25.1 kg/m2 05/05/2019 10:13am Height 69 inches 5'9" Weight 182.00 lb Heart Rate 67 /min BP Systolic Sitting 118 mmHg right arm reg cuff BP Diastolic Sitting 58 mmHg right arm reg cuff O2 % BldC Oximetry 96 % room air BMI (Body Mass Index) 26.9 kg/m2 Results Test Acquired Date Facility Test Result H/L Range Note Basic Metabolic 05/09/2019 [facility] Sodium 130 mmol/L Low 135-[address] [place] [address] [phone] Potassium 4.9 mmol/L Normal 3.5-5.0 Chloride 86 mmol/L Low 101-111 Co2 Carbon Dioxide 32 mmol/L Normal 22-32 Anion Gap 12 mmol/L High 2-11 Glucose 279 mg/dL High 70-100 Blood Urea Nitrogen 100 mg/dL High 6-24 Creatinine 3.04 mg/dL High 0.67-1.17 BUN/Creatinine Ratio 32.9 High 8-20 Calcium 9.7 mg/dL Normal 8.6-10.3 Egfr Non- 19.9 >60 Egfr 24.1 >60 1 Urine Microalbumin 05/05/2019 [facility] Ur Microalbumin 90.6 mg /L Random [address] (mg/L) [place] [address] [phone] Urine Creatinine 23.75 mg/dL Urine Microalbumin/Creatinine 381.4 High <31 Comp Metabolic 05/05/2019 [facility] Sodium 137 mmol/L Normal 135-[address] [place] [address] [phone] Potassium 4.3 mmol/L Normal 3.5-5.0 Chloride 92 [...] Egfr 24.3 >60 2 Lipid Profile 05/05/2019 [facility] Triglycerides 61 mg/dL 3 (Trig/Chol/HDL) [address] [place], [place] [id number] [phone] Cholesterol 140 mg/dL 4 HDL Cholesterol 69.3 mg/dL 5 LDL Cholesterol 59 mg/dL 6 Liver Function 05/05/2019 [facility] Direct 0.30 mg/dL High 0.03-0.18 Panel [address] [facility] Bilirubin [place], [place] [id number] [phone] Indirect Bilirubin 0.8 mg/dL Normal 0.3-1.0 Laboratory test 05/05/2019 [facility] Vitamin B12 1304 pg/mL High 180-[address] [place], [place] [id number] [phone] Basic Metabolic 04/27/2019 [facility] Sodium 133 mmol/L Low 135-145 Panel [address] [place] [address] [phone] Potassium 4.7 mmol/L Normal 3.5-5.0 Chloride 91 mmol/L Low 101-111 Co2 Carbon Dioxide 33 mmol/L High 22-32 Anion Gap 9 mmol/L Normal 2-11 Calcium 9.7 mg/dL Normal 8.6-10.3 Glucose 264 mg/dL High 70-100 Blood Urea Nitrogen 83 mg/dL High 6-24 Creatinine 2.93 mg/dL High 0.67-1.17 BUN/Creatinine Ratio 28.3 High 8-20 Egfr Non- 20.7 >60 Egfr 25.1 >60 8 Basic Metabolic 04/02/2019 [facility] Sodium 138 mmol/L Normal 135-[address] [place] [address] [phone] Potassium 4.1 mmol/L Normal 3.5-5.0 Chloride 94 mmol/L Low 101-111 Co2 Carbon Dioxide 34 mmol/L High 22-32 Anion Gap 10 mmol/L Normal 2-11 Glucose 203 mg/dL High 70-100 Blood Urea Nitrogen 78 mg/dL High 6-24 Creatinine 2.58 mg/dL High 0.67-1.17 BUN/Creatinine Ratio 30.2 High 8-20 Calcium 9.9 mg/dL Normal 8.6-10.3 Egfr Non- 24.0 >60 Egfr 29.1 >60 9 Basic Metabolic 03/22/2019 [facility] Sodium 133 mmol/L Low 135-[address] [place] [address] [phone] Potassium 4.0 mmol/L Normal 3.5-5.0 Chloride 92 mmol/L Low 101-111 Co2 Carbon Dioxide 31 mmol/L Normal 22-32 Anion Gap 10 mmol/L Normal 2-11 Glucose 161 mg/dL High 70-100 Blood Urea Nitrogen 84 mg/dL High 6-24 Creatinine 2.86 mg/dL High 0.67-1.17 BUN/Creatinine Ratio 29.4 High 8-20 Calcium 9.5 mg/dL Normal 8.6-10.3 Egfr Non- 21.3 >60 Egfr 25.8 >60 10 Laboratory test 03/02/2019 [facility] TSH (Thyroid 8.20 High 0.34-5.[address] Stim Horm) mcIU/[place] [address] [phone] Free T4 (Free Thyroxine) 0.88 ng/dL Normal 0.61-1.12 CBC Auto 03/02/2019 [facility] White Blood 8.2 10^3/uL Normal 3.5-10.[address] [place] [address] [phone] Red Blood Count 4.11 10^6/uL Low 4.18-5.48 [...] Blood Cells % 0.0 Laboratory test 03/02/2019 [facility] Magnesium 2.2 mg/dL Normal 1.9-2.7 finding [address] [place] [address] [phone] Comp Metabolic 03/02/2019 [facility] Sodium 135 mmol/L Normal 135-145 Panel [address] [place] [address] [phone] Potassium 4.2 mmol/L Normal 3.5-5.0 Chloride 94 [...] Egfr 29.7 >60 11 Laboratory test 11/30/2018 [facility] Blood Urea 67 mg/dL High 6-[address] [place] [address] [phone] Creatinine 11/30/2018 [facility] Creatinine 2.15 mg/dL High 0.67-1.[address] [place], [place] [address] [phone] Egfr Non- 29.6 >60 Egfr 35.9 >60 12 Laboratory test 11/30/2018 [facility] C Reactive 1.21 mg/L Normal <8.[address] [place] [address] [phone] Erythrocyte Sed Rate 11 mm/Hr Normal 0-19 [...] dialysis) Procedures Date Code Description Status 04/25/2019 89036 Icd Eval Sing,Dual,Multi Lead Remote Recpt Transm Tech Rev Completed Tech S 04/25/2019 25647 Icd Eval Sing,Dual,Multi Lead Remote Recpt Transm Tech Rev Completed Tech S 04/25/2019 16075 Pacemaker Check Remote Up To 90Days Single,Dual,Multiple Completed Lead 04/25/2019 09467 Pacemaker Check Remote Up To 90Days Single,Dual,Multiple Completed Lead 04/22/2019 53604 ECHO Transthorasic Realtime 2D W Doppler & Color Flow Hosp Completed 04/04/2019 84443 EKG Tracing & Interpretation Completed 03/28/2019 10631 Pace Maker Eval W/Iterative Adjment Dual Lead Completed 03/28/2019 98724 Pace Maker Eval W/Iterative Adjment Dual Lead Completed 03/23/2019 97840 ECHO Transthoracic, Real-Time 2D With Doppler And Color Completed Flow 03/23/2019 98166 ECHO Transthoracic, Real-Time 2D With Doppler And Color Completed Flow 03/14/2019 20032 Cardioversion Completed 03/14/2019 67807 Moderate Sedation Services; Same Phys Intl 15 Mins; PT >= Completed 5 Years 03/04/2019 77846 EKG Tracing & Interpretation Completed 03/02/2019 91519 EKG Tracing & Interpretation Completed 12/28/2018 10015 Pace Maker Eval W/Iterative Adjment Dual Lead Completed 12/28/2018 83347 Pace Maker Eval W/Iterative Adjment Dual Lead Completed 12/23/2018 83869 Icd Eval Sing,Dual,Multi Lead Remote Recpt Transm Tech Rev Completed Tech S 12/23/2018 10774 Icd Eval Sing,Dual,Multi Lead Remote Recpt Transm Tech Rev Completed Tech S 12/23/2018 47467 Pacemaker Check Remote Up To 90Days Single,Dual,Multiple Completed Lead 12/23/2018 67877 Pacemaker Check Remote Up To 90Days Single,Dual,Multiple Completed Lead Medical Devices Description No Information Available Encounters Type Date Location Provider Dx Diagnosis Office Visit 05/05/2019 [facility] Hedy Jackson MD 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 N18.3 Chronic kidney disease, stage 3 (moderate) I50.30 Unspecified diastolic (congestive) heart failure R60.9 Edema, unspecified Office Visit 05/04/2019 [facility] I50.33 Acute on chronic 9:45a thom [...] w unsp severity Office Visit 05/03/2019 9:45a [facility] I12.9 Hypertensive thom Knott MD chronic kidney Hospitalists disease w stg 1-4/unsp chr kdny I50.33 Acute on chronic diastolic (congestive) heart failure I48.92 Unspecified atrial flutter E11.22 Type 2 diabetes mellitus w diabetic chronic kidney disease N18.4 Chronic kidney disease, stage 4 (severe) E03.9 Hypothyroidism, unspecified Office Visit 04/27/2019 9:00a [facility] Hedy Jackson, I12.9 Hypertensive MD chronic kidney disease w stg 1-4/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 N18.3 Chronic kidney disease, stage 3 (moderate) R60.9 Edema, unspecified I50.32 Chronic diastolic (congestive) heart failure Office Visit 04/23/2019 1:34p [facility] Mulugeta Bender I13.0 Hyp hrt & chr Of [facility] DO Sergio FACC kdny dis w hrt fail and stg 1-4/unsp chr kdny I50.33 Acute on chronic diastolic (congestive) heart failure E11.22 Type 2 diabetes mellitus w diabetic chronic kidney disease N18.9 Chronic kidney disease, unspecified Office Visit 04/23/2019 [facility] Moreno Pastor I50.33 Acute on chronic 1:16p Assoc,thom Guillen M.D.,FACP diastolic Hospitalists (congestive) heart failure Office Visit 04/23/2019 [facility] Hedy Jackson, N17.9 Acute kidney 9:16a MD failure, unspecified E11.22 Type 2 diabetes mellitus w diabetic chronic kidney disease N18.9 Chronic kidney disease, unspecified Office Visit 04/22/2019 1:33p [facility] Mulugeta S. 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 R94.31 Abnormal electrocardiogram [ECG] [EKG] Office Visit 03/02/2019 1:30p [facility] Mulugeta SNavjot 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 Hill, DO [facility] 05/10/2019 I50.32 Chronic diastolic (congestive) heart Mulugeta Hill, DO [facility] failure 05/10/2019 Z95.0 Presence of cardiac pacemaker Mulugeta Hill, DO [facility] 05/10/2019 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 block, complete Mulugeta Hill, DO [facility] 05/10/2019 I48.0 Paroxysmal atrial fibrillation Mulugeta Hill, DO [facility] 05/10/2019 I25.2 Old myocardial infarction Mulugeta Hill, DO [facility] 05/10/2019 Z95.2 Presence of prosthetic heart valve Mulugeta Hill, DO [facility] 05/10/2019 I44.7 Left bundle-branch block, unspecified Mulugeta Hill, [facility] 05/10/2019 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, unspecified Mulugeta Hill, [facility] 05/10/2019 K92.2 Gastrointestinal hemorrhage, Mulugeta Hill, [facility] unspecified 05/10/2019 I73.9 Peripheral vascular disease, Mulugeta Hill, [facility] unspecified 05/05/2019 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9 Chronic kidney disease, unspecified Hedy Jackson MD 04/22/2019 I50.33 Acute on chronic diastolic Mulugeta Hill, DO FACC (congestive) heart failure 04/22/2019 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 Mulugeta Hill DO FACBrian disease with heart failure and stage 1 [...] 2 diabetes mellitus with Mulugeta Hill, DO [facility] diabetic chronic kidney disease 04/22/2019 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 Hedy Jackson MD disease with heart failure and stage 1 through stage 4 chronic kidney disease, or unspecified chronic kidney disease 04/22/2019 N18.9 Chronic kidney disease, unspecified Mulugetadanie Yaono, DO [facility] 04/22/2019 N18.9 Chronic kidney disease, unspecified Hedy Jackson MD 04/22/2019 I48.0 Paroxysmal atrial fibrillation Mulugetadanie Yaojovon DO [facility] 04/22/2019 I25.2 Old myocardial infarction Mulugeta SNavjot Hill, DO [facility] 04/22/2019 E87.1 Hypo-osmolality and hyponatremia Hedy Jackson MD 04/22/2019 Z98.61 Coronary angioplasty status Mulugeta Hill DO [facility] 04/21/2019 R79.89 Other specified abnormal findings of Nikkie Smith M.D. blood chemistry 04/21/2019 R60.0 Localized edema Nikkie Smith M.D. 04/21/2019 R53.83 Other fatigue Nikkie Smith M.D. 04/04/2019 I48.0 Paroxysmal atrial fibrillation Mulugeta SNavjot Hill, DO [facility] 04/04/2019 I48.92 Unspecified atrial flutter Mulugetadanie Yaojovon DO [facility] 04/04/2019 Z95.0 Presence of cardiac pacemaker Mulugeta SNavjot Hill, DO [facility] 04/04/2019 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 block, complete Mulugetadanie Yaojovon DO [facility] 04/04/2019 Z95.2 Presence of prosthetic heart valve Mulugetadanie Yaojovon DO [facility] 04/04/2019 I50.32 Chronic diastolic (congestive) heart Mulugeta SNavjot Hill, DO [facility] failure 04/04/2019 N18.9 Chronic kidney disease, unspecified Mulugetadanie Yaono, DO [facility] 04/04/2019 I25.2 Old myocardial infarction Mulugetadanie Hill DO [facility] 04/04/2019 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 Yaono, DO [facility]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 with 04/04/2019 I44.7 Left bundle-branch [...] heart disease of Mulugeta Hill, DO FACC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 with 03/04/2019 Z95.2 Presence of prosthetic heart valve Mulugeta Hill, DO FACC 03/04/2019 R94.31 Abnormal electrocardiogram [ECG] Mulugeta Hill DO [facility] [EKG] 03/02/2019 I48.92 Unspecified atrial flutter Mulugeta Hill, DO FACC 03/02/2019 I48.0 Paroxysmal atrial fibrillation Mulugeta Hill, DO FACC 03/02/2019 Z95.0 Presence of cardiac pacemaker Mulugeta Hill, DO FACC 03/02/2019 I50.32 Chronic diastolic (congestive) heart Mulugeta Hill, DO [facility] failure 03/02/2019 N18.9 Chronic kidney disease, unspecified Mulugeta Hill, DO FAC 03/02/2019 I25.2 Old myocardial infarction Mulugeta Hill, DO FAC 03/02/2019 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, DO [facility]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 with 03/02/2019 Z95.2 Presence of prosthetic heart valve Mulugeta Hill, DO FACC 03/02/2019 I50.33 Acute on chronic diastolic Mulugeta Hill, DO [facility] (congestive) heart failure 03/02/2019 I44.7 Left bundle-branch block, unspecified Mulugeta Hill, DO FAC 03/02/2019 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 block, complete Mulugeta Hill, DO FAC 03/02/2019 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, unspecified Mulugeta Hill, DO FAC 12/28/2018 Z95.0 Presence of cardiac pacemaker Mulugeta Hill, DO FAC 12/28/2018 Z95.0 Presence of cardiac pacemaker Ica Pacer Schedule 12/23/2018 Z95.0 Presence of cardiac pacemaker Mulugeta Hill, DO FAC 12/23/2018 Z95.0 Presence of cardiac pacemaker Remote Device Checks 12/23/2018 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 block, complete Mulugeta Hill, DO FACC 12/23/2018 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 block, complete Remote Device Checks 12/23/2018 I48.0 Paroxysmal atrial fibrillation Mulugeta Hill, DO FACC 12/23/2018 I48.0 Paroxysmal atrial fibrillation Remote Device Checks 12/09/2018 Z95.0 Presence of cardiac pacemaker Mulugeta SNavjot Hill, DO FACC 12/09/2018 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 block, complete Mulugeta Napoleon Hill, DO FACC 12/09/2018 I48.0 Paroxysmal atrial fibrillation Mulugeta SNavjot Hill, DO FACC 12/09/2018 I48.92 Unspecified atrial flutter Mulugeta Napoleon [place], DO FACC 12/09/2018 I50.32 Chronic diastolic (congestive) heart Mulugeta Hill, DO FACC failure 12/09/2018 N18.9 Chronic kidney disease, unspecified Mulugeta Hill, DO FACC 12/09/2018 I25.2 Old myocardial infarction Mulugeta Hill, DO FACC 12/09/2018 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danie Bender Sergio, DO FACC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 with 12/09/2018 Z95.2 Presence of prosthetic heart valve Mulugeta Hill DO FACC Plan of Treatment Future Appointment(s):11/10/2019 10:20 am - Mulugeta Hill DO FACC at [facility]05/10/2019 - Mulugeta Hill DO FACCI50.30 Unspecified diastolic (congestive) heart failureFollow up:6 months with EKGN18.9 Chronic kidney disease, ibbxruexncvY08.92 Unspecified atrial avwnzfzU87.9 Hypothyroidism , lsragdjngzjP54.32 Chronic diastolic (congestive) heart bzvifciC89.0 Presence of cardiac gclgisktnP88.2 Atrioventricular block, jktndfndL52.0 Paroxysmal atrial xbzuvlytdgnoR58.2 Old myocardial vuxjnxtffiU59.2 Presence of prosthetic heart efmsgN02.7 Left bundle-branch block, dvxkuauotwcI40.9 Amyloidosis, hepodlgpoifC95.2 Gastrointestinal hemorrhage, uudtjmhscdiJ50.9 Peripheral vascular disease, unspecified Functional Status Description No Information Available Mental Status Description No Information Available Referrals Refer to Reason for Referral Status Appt Date Beltran Umanzor MD atypical atrial flutter management Sent [address] [place] [address] [phone]
--- OUTSIDE RECORDS SUMMARY | 2019-07-02 19:00 | XMS REPORT | Continuity of Care Document ---
:1935 External Reference #:[id number] Author Name Arley Harp M.D. Address [address] [place] [address] [address] [place] [address] Care Team Providers Name Role Phone [facility] - Care Team Information Lead Java J2Ee Developer [phone] Neurology [facility] - Spec/[employer], Care Team Information Lead Java J2Ee Developer Cardiovascular Mulugeta Hill DO - Cardiovascular Care Team Information Lead Java J2Ee Developer [phone] Rasheed Vera MD - Endocrinology, Care Team Information Lead Java J2Ee Developer [phone] Diabetes & Metabolism Ximena Navarro MD - Pulmonary Care Team Information Lead Java J2Ee Developer Disease Problems Active Problems Provider Date Benign essential hypertension Arley Harp M.D. Onset: 02/16/2004 Type 2 diabetes mellitus Arley Harp M.D. Onset: 02/16/2004 Hyperlipidemia Arley Harp M.D. Onset: 02/16/2004 Carpal tunnel syndrome Arlye Harp M.D. Onset: 07/09/2011 Diabetic polyneuropathy Arley [...] Description Comments Sex Unknown Tobacco Use Reviewed: 06/06/19 Denies Cigarette Use Smoking Status Reviewed: 06/06/19 Denies Cigarette Use ETOH Use Denies alcohol use Allergies, Adverse Reactions, Alerts Active Allergies Reaction Severity Comments Date Ultram Dizzyness 05/15/2003 Medications Active Medications SIG Qnty Indications Ordering Provider Date Bumetanide 3 tablets daily in I50.32 Unknown 06/05/2019 1mg Tablets the morning; for heart/blood pressure I10 Levothyroxine Sodium take one tablet by E03.9 Rasheed Vera MD 04/23/2019 mouth every morning 75mcg Tablets on empty stomach for thyroid Aspirin one tab po daily for I25.10 Mulugeta Hill, 03/02/2019 81mg Tablets heart protection DO Prosthetic Foot Shell 1units S88.011S Arley Harp, 01/17/2019 For R Leg BK M.D. Prosthesis Vyndaqel 4 tablets every E85.82 Unknown 12/08/2018 20mg Capsules evening; for cardiac amyloidosis Januvia take one tablet by E11.21 Rasheed Vera MD 11/30/2018 100mg Tablets mouth every day; for blood sugar control E11.59 Amiodarone HCL 1 by mouth every I48.91 Unknown 11/18/2018 100mg Tablets day; for heart rhythm control PT For Gait Training, Arley Harp, 10/21/2018 Leg Strengthening, Back [employer] [facility] For Right Leg socket replacement; Z89.511 Arley Harp, 03/09 BK Prosthesis spectra sock; foot M.D. shell Lantus inject 16 units in E11.21 Unknown 01/12/2018 100Unit/ML Solution am E11.59 Eliquis 2.5mg Take One Tablet By Mouth Unknown 11/23 Tablets Twice A Day Calcium + D 1 a day Unknown 11/11/2017 Omeprazole one po daily Unknown 11/11/[address] 1 Tablet Under Tongue Unknown 07/30/2016 0.4mg Tablets Sub Every 5 Minutes Up To 3 Doses as Needed History Medications Spironolactone 1 tablet daily in the Unknown 04/25/2019 - 25mg Tablets morning; for 05/31/2019 fluid/heart failure Bumetanide 4 tablets daily every I50.32 Unknown 04/23/2019 - 1mg Tablets morning; for 06/05/2019 fluid/heart failure I10 Immunizations CPT Code Status Date Vaccine Lot # [id number] Given 02/06/2015 Prevnar 13 [id number] Given 07/25/2013 Adacel or Boostrix, TDaP [id number] Given 12/14/2002 Pneumococcal Immunization 07615 Given 12/14/2002 Td Immunization 89814 Given 12/27/1999 Td Immunization 70139 Refused 03/02/2007 Zostavax Vital Signs Date Vital Result Comment 06/06/2019 11:19am BP Systolic 128 mmHg BP Diastolic 52 mmHg Height 68.5 inches 5'8.50" w/shoes Weight 168.00 lb w/shoes BMI (Body Mass Index) 25.2 kg/m2 11/19/2018 10:42am BP Systolic 138 mmHg BP Diastolic 60 mmHg Height 68.50 inches 5'8.50" Weight 170.00 lb BMI (Body Mass Index) 25.5 kg/m2 Results Test Acquired Date Facility Test Result H/L Range Note Comp Metabolic Panel 06/03/2019 [facility] Sodium 128 mmol/L Low 135- 145 [phone] Potassium 4.5 mmol/L Normal 3.5-5.0 Chloride 88 [...] Non- 27.7 >60 Egfr 33.5 >60 1 Laboratory test 06/03/2019 [facility] TSH (Thyroid 19.20 High 0.34- 5.60 finding [phone] Stim Horm) mcIU/mL Free T4 (Free Thyroxine) 0.88 ng/dL Normal 0.61-1.12 CBC No Diff 06/03/2019 [facility] White Blood Count 12.2 10^3/uL High 3.5-10.8 [phone] Red Blood Count 3.95 10^6/uL Low 4.18-5.48 Hemoglobin 10.6 g/dL Low 14.0-18.0 Hematocrit 32 % Low 42-52 Mean Corpuscular Volume 82 fL Normal 80-94 Mean Corpuscular Hemoglobin 27 pg Normal 27-31 Mean Corpuscular HGB Conc 33 g/dL Normal 31-36 Red Cell Distribution Width 16 % High 10-15 Platelet Count 339 10^3/uL Normal 150-450 Mean Platelet Volume 7.5 fL Normal 7.4-10.4 Basic Metabolic Panel 05/09/2019 [facility] Sodium 130 mmol/L Low 135 -145 [phone] Potassium 4.9 mmol/L Normal 3.5-5.0 Chloride 86 mmol/L Low 101-111 Co2 Carbon Dioxide 32 mmol/L Normal 22-32 Anion Gap 12 mmol/L High 2-11 Glucose 279 mg/dL High 70-100 Blood Urea Nitrogen 100 mg/dL High 6-24 Creatinine 3.04 mg/dL High 0.67-1.17 BUN/Creatinine Ratio 32.9 High 8-20 Calcium 9.7 mg/dL Normal 8.6-10.3 Egfr Non- 19.9 >60 Egfr 24.1 >60 2 Urine Microalbumin 05/05/2019 [facility] Ur Microalbumin 90.6 mg/L Random [phone] (mg/L) Urine Creatinine 23.75 mg/dL Urine Microalbumin/Creatinine 381.4 High <31 Comp Metabolic Panel 05/05/2019 [facility] Sodium 137 mmol/L Normal 135-145 [phone] Potassium 4.3 mmol/L Normal 3.5-5.0 Chloride 92 [...] >60 Egfr 24.3 >60 3 Lipid Profile (Trig/Chol/HDL) 05/05/2019 [facility] Triglycerides 61 mg /dL 4 [phone] Cholesterol 140 mg/dL 5 HDL Cholesterol 69.3 mg/dL 6 LDL Cholesterol 59 mg/dL 7 Liver Function 05/05/2019 [facility] Direct Bilirubin 0.30 mg/dL High 0.03-0.18 Panel [phone] Indirect Bilirubin 0.8 mg/dL Normal 0.3-1.0 Laboratory test 05/05/2019 [facility] Vitamin B12 1304 pg/mL High 180 -914 8 finding [phone] Laboratory test 05/02/2019 [facility] Magnesium 2.2 mg/dL Normal 1.9- 2.7 finding [phone] Troponin-I (TnI) 0.14 ng/mL Critical high <0.03 9 TSH (Thyroid Stim Horm) 17.42 mcIU/mL High 0.34-5.60 Comp Metabolic Panel 05/02/2019 [facility] Sodium 130 mmol/L Low 135- 145 [phone] Potassium 4.7 mmol/L Normal 3.5-5.0 Chloride 88 [...] Egfr Non- 17.6 >60 Egfr 21.3 >60 10 Laboratory test 05/02/2019 [facility] Lactic Acid 1.2 mmol/L Normal 0.5-2.0 11 finding [phone] B-Type Natriuretic Peptide BNP > 1300 pg/mL High <=100 CBC Auto Diff 05/02/2019 [facility] White Blood 9.6 10^3/uL Normal 3.5-10.8 [phone] Count Red Blood Count 3.99 10^6/uL Low [...] Blood Cells % 0.1 Urinalysis Profile 05/02/2019 [facility] Urine Color Straw [phone] Urine Appearance Clear Urine Specific [place] 1.004 Low 1.010-1.030 Urine pH 7.0 Normal 5-9 Urine Urobilinogen Negative Negative Urine Ketones Negative Negative Urine Protein Negative Negative Urine Leukocytes Negative Negative Urine Blood 1+ Abnormal Negative Urine Nitrite Negative Negative Urine Bilirubin Negative Negative Urine Glucose Negative Negative Urine White Blood Cell Absent Absent Urine Red Blood Cell Trace(0-2/hpf) Absent Urine Bacteria Absent Absent Basic Metabolic Panel 04/27/2019 [facility] Sodium 133 mmol/L Low 135 -145 [phone] Potassium 4.7 mmol/L Normal 3.5-5.0 Chloride 91 mmol/L Low 101-111 Co2 Carbon Dioxide 33 mmol/L High 22-32 Anion Gap 9 mmol/L Normal 2-11 Calcium 9.7 mg/dL Normal 8.6-10.3 Glucose 264 mg/dL High 70-100 Blood Urea Nitrogen 83 mg/dL High 6-24 Creatinine 2.93 mg/dL High 0.67-1.17 BUN/Creatinine Ratio 28.3 High 8-20 Egfr Non- 20.7 >60 Egfr 25.1 >60 12 Laboratory test 04/21/2019 [facility] Lactic Acid 1.2 mmol/L Normal 0.5-2.0 13 finding [phone] B-Type Natriuretic Peptide BNP 1096 pg/mL High <=100 Inr/Protime 04/21/2019 [facility] Inr 1.54 High 0.82-1.09 14 [phone] Laboratory test 04/21/2019 [facility] Partial 36.8 Normal 26.0-38.0 finding [phone] Thrombo Time seconds PTT CBC Auto Diff 04/21/2019 [facility] White Blood 9.7 10^3/uL Normal 3.5-10.8 [phone] Count Red Blood Count 4.11 10^6/uL Low [...] Cells % 0.0 Comp Metabolic Panel 04/21/2019 [facility] Sodium 128 mmol/L Low 135- 145 [phone] Potassium 4.5 mmol/L Normal 3.5-5.0 Chloride 91 [...] Egfr Non- 22.7 >60 Egfr 27.5 >60 15 Laboratory 04/21/2019 [facility] C Reactive 6.06 mg/L Normal <8.01 test finding [phone] Protein CKMB 04/21/2019 [facility] CKMB ng/mL 5.9 ng/mL Normal 0.6-6.3 [phone] Laboratory 04/21/2019 [facility] Troponin-I 0.10 ng/mL Critical < 0.03 16 test finding [phone] (TnI) high Urinalysis 04/21/2019 [facility] Urine Color Yellow Profile [phone] Urine Appearance Clear Urine Specific [place] 1.010 Normal 1.010-1.030 Urine pH 5.0 Normal [...] 145 to 180 Deficient Range <145 9 Result TnIDx:0.14 Called to [id number] at: 21:20:12 by:[id number] Read back by: [id number] Troponin-I testing on Plasma Separator Tubes (PST) has a known false positive rate of 0.20-0.40%. All positive troponins reflex immediately to secondary confirmatory testing. Using the [employer] DxI 800 Access Immunoassay systems, the 99th percentile upper reference limit was demonstrated to be < 0.03 ng/mL. 10 Because ethnic data is not always [...] 5 Kidney failure <15 (or dialysis) 11 [facility] Severe Sepsis and Septic Shock Management Bundle Measure requires all lactic acids initially measuring >2.0 mmol/L be repeated. 12 Because ethnic data is not always [...] 15-29 5 Kidney failure <15 (or dialysis) 13 [facility] Severe Sepsis and Septic Shock Management Bundle Measure requires all lactic acids initially measuring >2.0 mmol/L be repeated. 14 Standard intensity warfarin therapeutic range: 2.0-3.0 High intensity warfarin therapeutic range: 2.5-3.5 15 Because ethnic data is not always readily [...] 15-29 5 Kidney failure <15 (or dialysis) 16 Result TnIDx:0.10 Called to [id number] at: 21:31:05 by:[id number] Read back by: [id number] Troponin-I testing on Plasma Separator Tubes (PST) has a known false positive rate of 0.20-0.40%. All positive troponins reflex immediately to secondary confirmatory testing. Using the [employer] Access Immunoassay systems, the 99th percentile upper reference limit was demonstrated to be < 0.03 ng/mL. Procedures Date Code Description Status 11/19/2018 [id number] Diabetic Foot Exam Completed 11/29/2016 [id number] Diabetic Retinal Eye Exam Completed 08/01/2014 [id number] Colonoscopy Completed Medical Devices Description No Information Available Encounters Type Date Location Provider Dx Diagnosis Office Visit 06/06/2019 Main Office Arley Harp, E11.59 Type 2 diabetes 11:15a M.D. 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 06/06/2019 I73.9 Peripheral vascular disease, unspecified Arley Harp M.D. 06/06/2019 R74.0 Nonspecific elevation of levels of Arley Harp M.D. transaminase and lactic acid dehydrogenase [LDH] 06/06/2019 Z68.25 Body mass index (BMI) 25.0-25.9, adult Arley Harp M.D. Plan of Treatment 06/06/2019 - Arley Harp M.D.E11.59 Type 2 diabetes mellitus with other circulatory complicationFollow up:RTO 6 months recheck chr probs. As we discussed, one of your cardiologists should be addressing whenand if to restart atorvastatin, and Dr Hu should talk to you about possibly restarting losartan. If these issues are not being addressed please let us know.I25.10 Atherosclerotic heart disease of [place] coronary artery withI10 Essential ( primary) hypertensionComments:BzpzizqbndL78.82 Wild-type transthyretin-related ( Attr) gznaiyxjeblV49.2 Presence of prosthetic heart exhjwR50.9 Peripheral vascular disease, unspecifiedComments:w/ L great toe ulceration. Encouraged appt w/ Dr Carvajal but he prefers seeing wound care clinic (andhas already been in touch w/ them about getting an appt) and going from there. He will continue f /u for this at wound care clinic and only return here prn for it.R74.0 Nonspecific elevation of levels of transaminase and lactic acid dehydrogenase [ LDH]Comments:cause NYD, ?related to statin use wc was recently stopped. Await repeat labs wc he will undoubtedly have through nephro and cardio. Need for this was discussed.Z68.25 Body mass index (BMI) 25.0-25.9, adult Functional Status Description No Information Available Mental Status Description No Information Available Referrals Description No Information Available
--- OUTSIDE RECORDS SUMMARY | 2019-07-02 19:00 | XMS REPORT | Continuity of Care Document ---
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 Atorvastatin Calcium 1 by mouth 90tabs E11.9 Mulugeta Hill, 04/13/2017 80mg every day DO [facility] Tablets Nitrostat one sl q5min up 25tabs Mulugeta Hill, 07/30/2016 0.4mg Tablets Sub to 3 doses as DO [facility] needed Levothyroxine Sodium 1 by mouth Unknown 75mcg every day Tablets Januvia 1 by mouth Unknown 100mg Tablets every day Amiodarone HCL 1 by mouth 90tabs Mulugeta Hill, 200mg every day DO [facility] Tablets Vyndaqel take 4 caps at Unknown 20mg Capsules hs Lantus Solostar 12 units sub-q Unknown 100Unit/ML once daily Solution Pen-Inject Calcium + D3 1 by mouth 90tabs Unknown [id number] every day Tablets Multi For Him 50+ 1 by mouth Unknown Tablets every day History Medications Bumex Mulugeta Hill, 04/11/2019 - 2mg Tablets DO [facility] 04/11/2019 Bumex take 4 tablets (4 180tabs Mulugeta Hill, 04/11/2019 - 1mg Tablets mg) by mouth DO [facility] 05/05/2019 daily Torsemide take 2 by mouth 90tabs Mulugeta Hill, 03/24/2019 - 20mg daily DO [facility] 04/11/2019 Tablets Aspirin 81 Take 1 by mouth 90tabs Z95.0 Mulugeta Hill, 12/09/2018 - 81mg every day DO [facility] 03/01/2019 Tablets Medications Administered in Office Medication SIG Qnty Indications Ordering Provider Date Inj, Regadenoson, 0.1 MG Mulugeta iHll, DO [facility] 07/30/2016 Injection Aminophylline Mulugeta Hill, DO [facility] 07/30/2016 Injection Technetium TC 99M Mulugeta Hill, DO [facility] 07/30/2016 Tetrofosmin, Per Unit Dose Up To 40 Millicuries Injection Inj, Regadenoson, 0.1 MG Mulugeta Hill, DO [facility] 10/02/2015 Injection Inj, Regadenoson, 0.1 MG Leticia Woodruff M.D. 10/02/2015 Injection Technetium TC 99M Mulugeta Hill DO [facility] 10/02/2015 Tetrofosmin, Per Unit Dose Up [...] Test Result H/L Range Note Basic Metabolic 04/27/2019 [facility] Sodium 133 mmol/L Low 135-145 Panel [address] [place] [address] [phone] Potassium 4.7 mmol/L Normal 3.5-5.0 Chloride 91 mmol/L Low 101-111 Co2 Carbon Dioxide 33 mmol/L High 22-32 Anion Gap 9 mmol/L Normal 2-11 Calcium 9.7 mg/dL Normal 8.6-10.3 Glucose 264 mg/dL High 70-100 Blood Urea Nitrogen 83 mg/dL High 6-24 Creatinine 2.93 mg/dL High 0.67-1.17 BUN/Creatinine Ratio 28.3 High 8-20 Egfr Non- 20.7 >60 Egfr 25.1 >60 1 Basic Metabolic 04/02/2019 [facility] Sodium 138 mmol/L Normal 135-145 Panel [address] [place] [address] [phone] Potassium 4.1 mmol/L Normal 3.5-5.0 Chloride 94 mmol/L Low 101-111 Co2 Carbon Dioxide 34 mmol/L High 22-32 Anion Gap 10 mmol/L Normal 2-11 Glucose 203 mg/dL High 70-100 Blood Urea Nitrogen 78 mg/dL High 6-24 Creatinine 2.58 mg/dL High 0.67-1.17 BUN/Creatinine Ratio 30.2 High 8-20 Calcium 9.9 mg/dL Normal 8.6-10.3 Egfr Non- 24.0 >60 Egfr 29.1 >60 2 Basic Metabolic 03/22/2019 [facility] Sodium 133 mmol/L Low 135-145 Panel [address] [place] [address] [phone] Potassium 4.0 mmol/L Normal 3.5-5.0 Chloride 92 mmol/L Low 101-111 Co2 Carbon Dioxide 31 mmol/L Normal 22-32 Anion Gap 10 mmol/L Normal 2-11 Glucose 161 mg/dL High 70-100 Blood Urea Nitrogen 84 mg/dL High 6-24 Creatinine 2.86 mg/dL High 0.67-1.17 BUN/Creatinine Ratio 29.4 High 8-20 Calcium 9.5 mg/dL Normal 8.6-10.3 Egfr Non- 21.3 >60 Egfr 25.8 >60 3 Comp Metabolic 03/02/2019 [facility] Sodium 135 mmol/L Normal 135-145 Panel [address] [place] [address] [phone] Potassium 4.2 mmol/L Normal 3.5-5.0 Chloride 94 [...] Egfr Non- 24.6 >60 Egfr 29.7 >60 4 Laboratory test 03/02/2019 [facility] Magnesium 2.2 mg/dL Normal 1.9-2.[address] [place] [address] [phone] CBC Auto Diff 03/02/2019 [facility] White Blood 8.2 Normal 3.5 -10.[address] Count 10^3/[place] [address] [phone] Red Blood Count 4.11 10^6/uL Low 4.18-5.48 [...] Blood Cells % 0.0 Laboratory test 03/02/2019 [facility] TSH (Thyroid 8.20 High 0.34-5.[address] Stim Horm) mcIU/[place] [address] [phone] Free T4 (Free Thyroxine) 0.88 ng/dL Normal 0.61-1.12 Laboratory test 11/30/2018 [facility] Blood Urea 67 mg/dL High 6-[address] [place] [address] [phone] Creatinine 11/30/2018 [facility] Creatinine 2.15 mg/dL High 0.67-1.[address] [place] [address] [phone] Egfr Non- 29.6 >60 Egfr 35.9 >60 5 Laboratory test 11/30/2018 [facility] C Reactive 1.21 mg/L Normal <8.[address] [place] [address] [phone] Erythrocyte Sed Rate 11 mm/Hr Normal 0-19 [...] 15-29 5 Kidney failure <15 (or dialysis) 5 Because ethnic data is not always readily [...] dialysis) Procedures Date Code Description Status 04/25/2019 79108 Icd Eval Sing,Dual,Multi Lead Remote Recpt Transm Tech Rev Completed Tech S 04/25/2019 59835 Icd Eval Sing,Dual,Multi Lead Remote Recpt Transm Tech Rev Completed Tech S 04/25/2019 32076 Pacemaker Check Remote Up To 90Days Single,Dual,Multiple Completed Lead 04/25/2019 67084 Pacemaker Check Remote Up To 90Days Single,Dual,Multiple Completed Lead 04/22/2019 07158 ECHO Transthorasic Realtime 2D W Doppler & Color Flow Hosp Completed 04/04/2019 14111 EKG Tracing & Interpretation Completed 03/28/2019 08034 Pace Maker Eval W/Iterative Adjment Dual Lead Completed 03/28/2019 00914 Pace Maker Eval W/Iterative Adjment Dual Lead Completed 03/23/2019 78786 ECHO Transthoracic, Real-Time 2D With Doppler And Color Completed Flow 03/23/2019 59003 ECHO Transthoracic, Real-Time 2D With Doppler And Color Completed Flow 03/14/2019 57764 Cardioversion Completed 03/14/2019 09149 Moderate Sedation Services; Same Phys Intl 15 Mins; PT >= Completed 5 Years 03/04/2019 28113 EKG Tracing & Interpretation Completed 03/02/2019 87872 EKG Tracing & Interpretation Completed 12/28/2018 17552 Pace Maker Eval W/Iterative Adjment Dual Lead Completed 12/28/2018 57713 Pace Maker Eval W/Iterative Adjment Dual Lead Completed 12/23/2018 98569 Icd Eval Sing,Dual,Multi Lead Remote Recpt Transm Tech Rev Completed Tech S 12/23/2018 22684 Icd Eval Sing,Dual,Multi Lead Remote Recpt Transm Tech Rev Completed Tech S 12/23/2018 93311 Pacemaker Check Remote Up To 90Days Single,Dual,Multiple Completed Lead 12/23/2018 97417 Pacemaker Check Remote Up To 90Days Single,Dual,Multiple Completed Lead Medical Devices Description No Information Available Encounters Type Date Location Provider Dx Diagnosis Office Visit 04/27/2019 [facility] Hedy Jackson MD 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 I13.0 Hyp hrt & chr Of Raegan Hill, DO FACC kdny dis w hrt fail and stg 1-4/unsp chr kdny I50.33 Acute on chronic diastolic (congestive) heart failure E11.22 Type 2 diabetes mellitus w diabetic chronic kidney disease N18.9 Chronic kidney disease, unspecified Office Visit 04/23/2019 9:16a [facility]rology Hedy Jackson, N17.9 Acute kidney MD failure, unspecified E11.22 Type 2 diabetes mellitus w diabetic chronic kidney disease N18.9 Chronic kidney disease, unspecified Office Visit 04/22/2019 1:33p [facility] Mulugeta S. I50.33 Acute on chronic Of Raegan Hill, DO diastolic FACC (congestive) heart failure I13.0 Hyp hrt & chr kdny dis w hrt fail and stg 1-4/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 N18.9 Chronic kidney disease, unspecified I48.0 Paroxysmal atrial fibrillation I25.2 Old myocardial infarction Z98.61 Coronary angioplasty status Office Visit 04/22/2019 9:16a [facility] Nephrology Hedy Jackson, N17.9 Acute kidney MD failure, unspecified I13.0 Hyp hrt & chr kdny dis w hrt fail and stg 1-4/unsp chr kdny N18.9 Chronic kidney disease, unspecified E87.1 Hypo-osmolality and hyponatremia Office Visit 04/21/2019 1:15p [facility] Nikkie Smith, R79.89 Other specified Assoc,thom MNavjotD. abnormal Hospitalists findings of blood chemistry R60.0 Localized edema R53.83 Other fatigue Office Visit 04/04/2019 2:00p [facility] Mulugeta S. 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 I48.92 Unspecified Of [employer] Hill, DO atrial flutter FACC I48.0 Paroxysmal atrial fibrillation Z95.0 Presence of cardiac pacemaker I50.32 Chronic diastolic (congestive) heart failure N18.9 Chronic kidney disease, unspecified I25.2 Old myocardial infarction I25.10 Athscl heart disease of [place] coronary artery w/o ang pctrs Z95.2 Presence of prosthetic heart valve R94.31 Abnormal electrocardiogram [ECG] [EKG] Office Visit 03/02/2019 1:30p [facility] Mulugeta S. 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 Z95.0 Presence of Of [employer] Hill, DO cardiac FACC pacemaker 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 block, complete I48.0 Paroxysmal atrial fibrillation I48.92 Unspecified atrial flutter I50.32 Chronic diastolic (congestive) heart failure N18.9 Chronic kidney disease, unspecified I25.2 Old myocardial infarction I25.10 Athscl heart disease of [place] coronary artery w/o ang pctrs Z95.2 Presence of prosthetic heart valve Assessments Date Code Description Provider 05/05/2019 R31.29 Other microscopic hematuria Hedy Jackson MD 05/05/2019 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 eHdy Jackson MD with stage 1 through stage 4 chronic kidney disease, or unspecified chronic kidney disease 05/05/2019 N18.3 Chronic kidney disease, stage 3 Hedy Jackson MD (moderate) 05/05/2019 R60.9 Edema, unspecified Hedy Jackson MD 04/27/2019 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 Hedy [...] 04/23/2019 N17.9 Acute kidney failure, unspecified Hedy Jacskon MD 04/23/2019 I50.33 Acute on chronic diastolic Mulugeta Hill DO FACBrian (congestive) heart failure 04/23/2019 I50.33 Acute on chronic diastolic Moreno Guillen M.D.,FACP (congestive) heart failure 04/23/2019 E11.22 Type 2 diabetes mellitus with Mulugeta Hill DO FACBrian diabetic chronic kidney disease 04/23/2019 E11.22 Type 2 diabetes mellitus with Hedy Jackson MD diabetic chronic kidney disease 04/23/2019 N18.9 Chronic kidney disease, unspecified Mulugeta Hill DO FACBrian 04/23/2019 N18.9 Chronic kidney disease, unspecified Hedy Jackson MD 04/22/2019 I50.33 Acute on chronic diastolic Mulugeta Hill DO FACBrian (congestive) heart failure 04/22/2019 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 Mulugeta Hill, DO [facility] disease with heart failure and stage 1 through stage 4 chronic kidney disease, or unspecified chronic kidney disease 04/22/2019 N17.9 Acute kidney failure, unspecified Hedy Jackson MD 04/22/2019 E11.22 Type 2 diabetes mellitus with Mulugeta Hill, DO [facility] diabetic chronic kidney disease 04/22/2019 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 Hedy Jackson MD disease with heart failure and stage 1 through stage 4 chronic kidney disease, or unspecified chronic kidney disease 04/22/2019 N18.9 Chronic kidney disease, unspecified Mulugeta Hill DO [facility] 04/22/2019 N18.9 Chronic kidney disease, unspecified Hedy Jackson MD 04/22/2019 I48.0 Paroxysmal atrial fibrillation Mulugeta Hill DO [facility] 04/22/2019 I25.119 Atherosclerotic heart disease of Moreno Guillen M.D., [facility] [place] coronary artery with unspecified angina pectoris 04/22/2019 I25.2 Old myocardial infarction Mulugeta Hill DO [facility] 04/22/2019 E87.1 Hypo-osmolality and hyponatremia Hedy Jackson MD 04/22/2019 Z98.61 Coronary angioplasty status Mulugeta Hill DO [facility] 04/22/2019 I50.30 Unspecified diastolic (congestive) Moreno Guillen M.D. ,[facility] heart failure 04/22/2019 N18.4 Chronic kidney disease, stage 4 Moreno Guillen M.D., FACP (severe) 04/22/2019 I48.92 Unspecified atrial flutter Moreno Guillen M.D.,FAC 04/22/2019 E03.9 Hypothyroidism, unspecified Moreno Guillen M.D.,FAC 04/21/2019 R79.89 Other specified abnormal findings of Nikkie Smith M.D. blood chemistry 04/21/2019 R60.0 Localized edema Nikkie Smith M.D. 04/21/2019 R53.83 Other fatigue Nikkie mSith M.D. 04/04/2019 I48.0 Paroxysmal atrial fibrillation Mulugeta Hill, DO FACC 04/04/2019 I48.92 Unspecified atrial flutter Mulugeta Hill, DO FACC 04/04/2019 Z95.0 Presence of cardiac pacemaker Mulugeta Hill, DO FACC 04/04/2019 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 block, complete Mulugeta Hill, DO FACC 04/04/2019 Z95.2 Presence of prosthetic heart valve Mulugeta Hill, DO FACC 04/04/2019 I50.32 Chronic diastolic (congestive) heart Mulugeta Hill, DO FAC failure 04/04/2019 N18.9 Chronic kidney disease, unspecified Mulugeta Hill, DO FACC 04/04/2019 I25.2 Old myocardial infarction Mulugeta Hill, DO FAC 04/04/2019 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, DO [facility] [place] coronary artery with 04/04/2019 I44.7 Left bundle-branch block, unspecified Mulugeta Hill, DO FACC 04/04/2019 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, unspecified Mulugeta Hill, DO FAC 04/04/2019 K92.2 Gastrointestinal hemorrhage, Mulugeta Hill, DO [facility] unspecified 04/04/2019 E78.5 Hyperlipidemia, unspecified Mulugeta Hill, DO FAC 04/04/2019 I73.9 Peripheral vascular disease, Mulugeta Hill, DO [facility] unspecified 04/04/2019 E03.9 Hypothyroidism, unspecified Mulugeta Hill, [...] heart disease of Mulugeta Hill, DO FACC [place] coronary artery with 03/04/2019 Z95.2 Presence of [...] heart disease of Mulugeta Hill, DO FACC [place] coronary artery with 03/02/2019 Z95.2 Presence of [...] 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 block, complete Mulugeta Hill, DO [facility] 12/23/2018 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 block, complete Remote Device Checks 12/23/2018 I48.0 Paroxysmal atrial fibrillation Mulugeta Hill, DO [facility] 12/23/2018 I48.0 Paroxysmal atrial fibrillation Remote Device Checks 12/09/2018 Z95.0 Presence of cardiac pacemaker Mulugeta Hill, DO FAC 12/09/2018 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 block, complete Mulugeta Hill, DO FAC 12/09/2018 I48.0 Paroxysmal atrial fibrillation Mulugeta Hill, DO [facility] 12/09/2018 I48.92 Unspecified atrial flutter Mulugeta Hill, DO [facility] 12/09/2018 I50.32 Chronic diastolic (congestive) heart Mulugeta Hill, DO [facility] failure 12/09/2018 N18.9 Chronic kidney disease, unspecified Mulugeta Hill, DO FAC 12/09/2018 I25.2 Old myocardial infarction Mulugeta Hill, DO FAC 12/09/2018 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, DO [facility] [place] coronary artery with 12/09/2018 Z95.2 Presence of prosthetic heart valve Mulugeta Hill, DO [facility] Plan of Treatment Future Appointment(s):05/10/2019 3:30 pm - Hedy Jackson MD at [facility] [id number] /05/2019 - Hedy Jackson, MDR31.29 Other microscopic kinboziqpZ53.9 Hypertensive chronic kidney disease with stage 1 through stage 4 chronic kidney disease, or unspecified chronic kidney [id number] Chronic kidney disease, stage 3 ( moderate)Follow up:EARLY NEXT WEEK WITH LABSR60.9 Edema, unspecified Functional Status Description No Information Available Mental Status Description No Information Available Referrals Refer to Reason for Referral Status Appt Date Beltran Umanzor MD atypical atrial flutter management [address] [place] [address] [phone]
--- OUTSIDE RECORDS SUMMARY | 2019-07-02 19:00 | XMS REPORT ---
:1935 Author Organization [facility] Care Team Providers Name Role Phone Unavailable Unavailable Unavailable Problems This patient has no known problems. Allergies, Adverse Reactions, Alerts Allergy Allergy Status [...]
[2019-07-02 19:19] LABS: ALT 107 U/L (7-52); AST 69 U/L (13-39); Albumin 3.1 g/dL (3.2-5.2); Albumin/Globulin Ratio 1.1 (1-3); Alkaline Phosphatase 111 U/L (34-104); Anion Gap 10 mmol/L (2-11); BUN/Creatinine Ratio 34.9 (8-20); Blood Urea Nitrogen 117 mg/dL (6-24); CO2 Carbon Dioxide 25 mmol/L (22-32); Calcium 8.6 mg/dL (8.6-10.3); Chloride 90 mmol/L (101-111); EGFR African American 21.4 (>60); EGFR Non-African American 17.7 (>60); Globulin 2.8 g/dL (2-4); Glucose 214 mg/dL (70-100); Sodium 125 mmol/L (135-145); Total Protein 5.9 g/dL (6.4-8.9)
[2019-07-02 19:26] LABS: Troponin I 0.47 ng/mL (<0.03)
[2019-07-02] MEDS ORDERED: Piperacillin/Tazobac ADVAN(*) 3.375 GM in NS 0.9% 100 ML* 100 ML IVPB ONE (19:32)
[2019-07-02 19:56] LABS: ABS Basophils 0.1 10^3/ul (0-0.2); ABS Eosinophils 0.1 10^3/ul (0-0.6); ABS Lymphocytes 0.5 10^3/ul (1.0-4.8); ABS Monocytes 0.9 10^3/ul (0-0.8); ABS Neutrophils 11.5 10^3/ul (1.5-7.7); Eosinophil % 0.8 %; Lymphocyte % 3.6 %; Nucleated Red Blood Cells % 0.1
--- NOTE | 2019-07-02 21:22 | ADMNOTE ---
Subjective Interval History: 84 yo male with past medical hx of CAD s/p PCI, s/p TAVR, CKD4, Afib on eliquis, PAD, TTR amyloidosis presenting today with chest pain and lethargy. PT is NYHA class IV, following cardiology outpatient. He was just discharged yesterday from cadiac unit at [place]. He was on milrinone drip there with minimal improvement. He was advised to go home on milrinone drip which pt refused. THe milrinone drip was tapered off gradually. [place] had palliative meetings with the family to explain his poor prognosis but no final decision was made. He got home yesterday and progressively got weaker again. His lower EXT edema got worse. He put on 6lbs in just 1 day. He started having chest pain. The daughter brought in to the hospital. I spoke with cardiology, then had a family discussion. I explained to them that hte patient is back in exacerbation. His pressure is borderline low. He needs inoptropes and diuresis. He has only been out of the hospital for just 1 day and his heart is failing again. This reinforces need for milrinone infusion outpatient. Also, it iwll be difficult to diurese him with CKD 4 without considering dialysis. Daughter said they were already told in [place] he would not be a candidate for dialysis. So now the family is asking questions about hospice. The patient's ultimate goal is to at home. Family History: Unchanged from Admission Social History: Unchanged from Admission Past Medical History: Unchanged from Admission Review of Systems - Measurements Intake and Output: Intake and Output Last 24 Hours 06/30/19 07/01/19 07/02/19 07/03/19 06:59 06:59 06:59 06:59 Intake Total 111 Balance 111 Weight 184 lb Intake: IV Fluids 2 IVPB 109 - Review of Systems General Comments: unable to obtain Objective Active Medications: Bumetanide (Bumex*) 4 mg SLOW PUSH BID JACK Sodium Chloride (Ns 0.9% 1000 Ml) 1,000 mls @ 150 mls/hr IV ED ONCE ONE Stop: 07/03/19 01:18 Last Admin: 07/02/19 18:43 Dose: 150 mls/hr Morphine Sulfate (Morphine Inj (Syringe))*) 2 mg IV Q4H PRN PRN Reason: PAIN - MILD Ambulatory Orders Apixaban* [Eliquis*] 2.5 mg PO BID 03/11/19 Insulin GLARGINE(*) [Lantus 100 unist/ml 10 ml VIAL (*)] 25 units SUBCUT BEDTIME 03/11/19 Nitroglycerin TAB 0.4 MG* 0.4 mg SL Q5M PRN 03/11/19 Sitagliptin Phosphate [Januvia] 50 mg PO DAILY 03/11/19 Amiodarone TAB* [Cordarone Tab*] 200 mg PO DAILY tab 04/23/19 Bumetanide TAB* [Bumex 1 MG TAB*] 2 mg PO BID 05/02/19 Aspirin [Aspirin EC] 81 mg PO DAILY 07/02/19 Docusate Sodium 100 mg PO BID PRN 07/02/19 Levothyroxine TAB* [Synthroid TAB*] 125 mcg PO DAILY@0600 07/02/19 Tamsulosin HCl 0.4 mg PO DAILY 07/02/19 Vital Signs - 8 hr 07/02/19 18:17 Temperature 96.8 F Pulse Rate 75 Respiratory 13 Rate Blood Pressure 98/53 (mmHg) O2 Sat by Pulse 98 Oximetry Oxygen Devices in Use Now: Nasal Cannula Appearance: lethargic, sleepy Eyes: No Scleral Icterus, PERRLA Ears/Nose/Mouth/Throat: Mucous Membranes Moist, - Neck: NL Appearance and Movements; NL JVP, Trachea Midline Respiratory: Symmetrical Chest Expansion and Respiratory Effort, - - crackles Abdominal: NL Sounds; No Tenderness; No Distention, No Hepatosplenomegaly Extremities: - - 2+ edema in LLE Skin: - - multiple open wounds and blisters Neurological: - - unable to assess Result Diagrams: 07/02/19 18:50 07/02/19 18:50 Assess/Plan/Problems-Billing Assessment: - Patient Problems (1) Admission for hospice care Current Visit: Yes Status: Acute Code(s): Z51.5 - ENCOUNTER FOR PALLIATIVE CARE SNOMED Code(s): 890767939 Comment: end stage heart failure, multiple admissions for heart failure exacerbations. Family understands his poor prognosis and would like to proceed with hospice care. Ultimately, they want the patient home when he expires if it is feasible. (2) Diastolic heart failure Current Visit: No Status: Acute Priority: Medium Code(s): I50.30 - UNSPECIFIED DIASTOLIC (CONGESTIVE) HEART FAILURE SNOMED Code(s): 628337727 Comment: NYHA class IV, ultimately needs milrinone infusion at home but pt refuses. He continuously keep going into exacerbation. Now family is ready to transition him to hospice. Bumex for symptoms management (3) CKD (chronic kidney disease) stage 4, GFR 15-29 ml/min Current Visit: No Status: Acute Priority: Medium Code(s): N18.4 - CHRONIC KIDNEY DISEASE, STAGE 4 (SEVERE) SNOMED Code(s): 333047165 Comment: -acute on chronic -from cardiorenal syndrome -IV bumex BID -following Dr. Jackson as outpatient (4) Elevated troponin Current Visit: No Status: Acute Code(s): R79.89 - OTHER SPECIFIED ABNORMAL FINDINGS OF BLOOD CHEMISTRY SNOMED Code(s): 404494234 Comment: -likely demand (5) DNR (do not resuscitate) Current Visit: Yes Status: Acute
[2019-07-02 22:07] LABS: Troponin I 0.54 ng/mL (<0.03)
[2019-07-02] MEDS: Morphine INJ* 2 MG/ML 1 ML SYRINGE (TWO MG - NEW SYRINGE VERSION) IV PRN (23:18)
[2019-07-02] MEDS: Bumetanide IV* 0.25 MG/ML 4 ML VIAL SLOW PUSH SCH (23:18)
[2019-07-03 00:47] LABS: Troponin I 0.55 ng/mL (<0.03)
[2019-07-03] MEDS ORDERED: Dextrose 50% Syringe 50 ML* 25 GM/50 ML SYRINGE IV PUSH PRN (00:52)
[2019-07-03] MEDS: Nystatin TOP POWDER* 15 GM BTL TOPICAL SCH ×3 (02:06→21:53)
[2019-07-03] MEDS: Insulin LISPRO* 1 UNITS UNIT SUBCUT SCH ×5 (02:07→21:51)
[2019-07-03] MEDS: Bumetanide IV* 0.25 MG/ML 4 ML VIAL SLOW PUSH SCH ×2 (08:59→21:53)
--- NOTE | 2019-07-03 13:58 | CONSULT ---
Subjective Date of Service: 07/03/19 Interval History: Admission date 07/02/2019 Consult date 07/03/2019 Service: Hospitalist PCP: Dr. Harp Fire Hydrant Mechanic: Dr. Vera Heart failure private security guard: Dr. Yanez Flight Service Specialist: Dr. Umanzor Dietary Aid: Previously Dr. Jackson CC: Weight gain, chest discomfort, lethargy, weakness Reason for consult: CHF HPI Mr. Méndez is a 84 year old man very well known to me with complex history as below. His daughter Sia ([phone]) is a cardiac rehab nurse in [place] and is at bedside along with patients . Multiple CHF admission last several months. Admitted to [facility] last week, patient had been on milrinone with less diuretics that prior. Patient declined outpatient milrinone infusion trial and it was uncertain how much he had actually improved with the medication. Day prior to admission milrinone stopped. Peviously discussed with Dr. Mccord, milrinone not available locally as outpatient infusion through local [facility]. Patient was discharged with 2 mg po bid of bumex. He had been taking 8 to 10 mg of bumex daily within last 3 months. Patient was admitted day after discharge with weight gain, lethargy, chest discomfort and severe dyspnea. He was found with acutely decompensated HF. He received IV bumex, has had UOP and symptoms have improved. Pmhx: paroxysmal Afib/flutter on amiodarone and eliquis. 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 1995 or 1996. Had trauma injury, infected hardware, amputation. Arthoplasty - Bilateral shoulders FH: Non-contributory SH: Marital: .Lives With: .Occupation: Retired. Personal Habits: Smoking: Patient has never smoked.Cigarette Use: Never Smoked Cigarettes.Alcohol: Denies alcohol use.Drug Use: Denies Drug Use.Daily Medications Active Medications: Amiodarone HCl (Cordarone Tab*) 200 mg PO DAILY [facility] Apixaban (Eliquis*) 2.5 mg PO BID [facility] Aspirin (Aspirin 81 Mg Chew Tab*) 81 mg PO DAILY [facility] Bumetanide (Bumex*) 5 mg SLOW PUSH BID [facility] Dextrose (D50w Syringe 50 Ml*) 12.5 gm IV PUSH .FOR FS < 60 - SS PRN PRN Reason: FS < 60 Insulin Human Lispro (Humalog*) 0 units SUBCUT ACHS [facility]; Protocol Last Admin: 07/03/19 12:45 Dose: 4 unit Morphine Sulfate (Morphine Inj (Syringe))*) 2 mg IV Q4H PRN PRN Reason: PAIN - MILD Last Admin: 07/02/19 23:18 Dose: 2 mg Nystatin (Nystatin Top Powder*) 1 applic TOPICAL BID [facility] Last Admin: 07/03/19 08:59 Dose: 1 applic Sitagliptin Phosphate (Januvia (Nf)) 25 mg PO DAILY [facility]; Protocol Tamsulosin HCl (Flomax Cap*) 0.4 mg PO DAILY [facility] Home Medications: Apixaban* [Eliquis*] 2.5 mg PO BID 03/11/19 [History Confirmed 07/02/19] Insulin GLARGINE(*) [Lantus 100 unist/ml 10 ml VIAL (*)] 25 units SUBCUT BEDTIME 03/11/19 [History Confirmed 07/02/19] Multivitamin [Multivitamins] 1 each PO DAILY 03/11/19 [History Confirmed ] Nitroglycerin TAB 0.4 MG* 0.4 mg SL Q5M PRN 03/11/19 [History Confirmed 07/02/19 ] Sitagliptin Phosphate [Januvia] 50 mg PO DAILY 03/11/19 [History Confirmed 07/02] Tafamidis Meglumine [Vyndaqel] 80 mg PO DAILY 03/11/19 [History Confirmed ] Acetaminophen TAB* [Tylenol TAB*] 650 mg PO Q6H PRN tab 04/23/19 [Rx Confirmed 07/02/19] Amiodarone TAB* [Cordarone Tab*] 200 mg PO DAILY tab 04/23/19 [Rx Confirmed 06/20] Bumetanide TAB* [Bumex 1 MG TAB*] 2 mg PO BID 05/02/19 [History Confirmed ] Aspirin [Aspirin EC] 81 mg PO DAILY 07/02/19 [History Confirmed 07/02/19] Docusate Sodium 100 mg PO BID PRN 07/02/19 [History Confirmed 07/02/19] Levothyroxine TAB* [Synthroid TAB*] 125 mcg PO DAILY@0600 07/02/19 [History Confirmed 07/02/19] Tamsulosin HCl 0.4 mg PO DAILY 07/02/19 [History Confirmed 07/02/19] Review of Systems - Measurements Intake and Output: Intake and Output Last 24 Hours 07/01/19 07/02/19 07/03/19 07/04/19 06:59 06:59 06:59 06:59 Intake Total 111 720 Output Total 250 Balance -139 720 Weight 185 lb 14.4 oz Intake: IV Fluids 2 IVPB 109 Oral 0 720 Output: Urine 250 Other: # Bowel Movements 0 - Review of Systems Constitutional Symptoms: Positive: Weight Gain, Fatigue Dermatology: Positive: Rash, Skin Lesions HEENT: Negative: Change in Hearing, Vertigo Eyes: Negative: Change in Vision, Double Vision Thyroid: Positive: Primary Hyperthyroidism, Weight Gain Negative: Palpitations, Weight Loss Pulmonary: Positive: Shortness of Breath, Exercise Intolerance Negative: COPD, Asthma, Home Oxygen Cardiology: Positive: Chest Pain, Shortness of Breath, Swelling of Ankles, Peripheral Vascular Dis, Edema, Orthopnea Negative: Palpitations, Syncope Gastroenterology: Negative: Blood in Stools, Haematemesis, Melena Genital - Urinary: Negative: Dysuria, Hematuria Musculoskeletal: Negative: Joint Pain, Joint Stiffness Endocrinology: Positive: Diabetes Negative: Polydipsia, Polyuria Hematologic/Lymphatic: Positive: Use of Anticoagulant, Use of Antiplatelet Drugs Neurology: Negative: Hx of Stroke\TIA, Hx Seizures Psychiatry: Negative: Unusual Anxiety, Suicidal Ideation Allergic/Immunologic: Negative: Hx HIV, Immunocompromise Review of Systems Statement: All other review of systems negative, unless stated above. Objective Vital Signs: Temp Pulse Resp BP Pulse Ox 97.4 F 78 18 100/47 93 07/03/19 11:15 07/03/19 11:15 07/03/19 11:15 07/03/19 11:15 07/03/19 11:15 Oxygen Devices in Use Now: None Appearance: frail, elderly and ill Ears/Nose/Mouth/Throat: Clear Oropharnyx, Mucous Membranes Moist Neck: Trachea Midline, - - + jvd Respiratory: Symmetrical Chest Expansion and Respiratory Effort, - - decreased breath sounds bases, rales left mid lung Cardiovascular: RRR, - - 1/6 systolic murmur, device pocket intact Abdominal: NL Sounds; No Tenderness; No Distention Extremities: - - 1+ edema left leg with multiple wounds Skin: - - leg blisters and wound left leg Neurological: Alert and Oriented x 3 Laboratory Results: 07/02/19 18:50 07/02/19 18:50 Total Bilirubin 0.60 mg/dL (0.2-1.0) 07/02/19 18:50 AST 69 U/L (13-39) H 07/02/19 18:50 ALT 107 U/L (7-52) H 07/02/19 18:50 Alkaline Phosphatase 111 U/L (34-104) H 07/02/19 18:50 B-Natriuretic Peptide > 1300 pg/mL (<=100) H 07/02/19 18:50 Total Protein 5.9 g/dL (6.4-8.9) L 07/02/19 18:50 Albumin 3.1 g/dL (3.2-5.2) L 07/02/19 18:50 Globulin 2.8 g/dL (2-4) 07/02/19 18:50 Albumin/Globulin Ratio 1.1 (1-3) 07/02/19 18:50 07/02/19 07/02/19 07/03/19 18:50 21:36 00:15 Troponin I 0.47 H* 0.54 H* 0.55 H* Diagnostic Imaging: Cardiac Procedures: Cardiac Catheterization - (01/01/2018) LAD non-obstructive disease, Proximal 50- 60% Lcx disease, heavily calcified RCA obstrucitve lesion with ANGÉLICA 1 flow. Had subsequent rotablator and JUDY x 2 to mid-distal RCA Multiple cardioversions TAVR valve with pacemaker afterwards RHC 05/31/2019 PCWP 10 mmhg CI 2.0 RA 1 mmHg PA 47/15/25 mmHg Exam Date: 07/02/19 IMPRESSION: RIGHT MID TO LOWER LUNG ZONE AND LEFT RETROCARDIAC AIRSPACE OPACIFICATION OF THE SMALL RIGHT PLEURAL EFFUSION. echo 05/31/2019 global LVEf 40% normal tavr function EKG Data: 07/02/2019: unsure underlying atrial/sinus rhythm V-paced Assessment/Plan 1. End stage amyloid HF 2. Advanced CKD - reportedly not a dialysis candidate 3. DM 4. Diabetic wounds 5. CAD 6. TAVR 7. Paroxysmal afib/flutter - restart home meds (ordered) except change diuretics as below - change bumex to 5 mg iv bid (ordered) and will change to oral once improved - cmp and tsh tomorrow (ordered) - patient not a transplant candidate due to age and comorbidities. - Would not start inotropes - Prognosis very poor - Palliative medicine consulted
[2019-07-03] MEDS: Tamsulosin CAP* 0.4 MG PO SCH (14:17)
[2019-07-03] MEDS: Amiodarone TAB* 200 MG PO SCH (14:17)
[2019-07-03] MEDS: Aspirin 81 mg CHEW TAB* 81 MG TAB.CHEW PO SCH (14:17)
[2019-07-03] MEDS: Apixaban* 2.5 MG TAB PO SCH ×2 (14:17→21:51)
[2019-07-03] MEDS: CMC: SitaGLIPtin (NF) 25 MG TAB PO SCH (14:20)
--- NOTE | 2019-07-03 15:36 | PN ---
Subjective Date of Service: 07/03/19 Interval History: 'Resting in bed on assessment. Family at bedside. Patient denies sob, cp, palpitations, nausea, vomiting. Family History: Unchanged from Admission Social History: Unchanged from Admission Past Medical History: Unchanged from Admission Objective Active Medications: Amiodarone HCl (Cordarone Tab*) 200 mg PO DAILY [facility] Last Admin: 07/03/19 14:17 Dose: 200 mg Apixaban (Eliquis*) 2.5 mg PO BID [facility] Last Admin: 07/03/19 14:17 Dose: 2.5 mg Aspirin (Aspirin 81 Mg Chew Tab*) 81 mg PO DAILY [facility] Last Admin: 07/03/19 14:17 Dose: 81 mg Bumetanide (Bumex*) 5 mg SLOW PUSH BID [facility] Dextrose (D50w Syringe 50 Ml*) 12.5 gm IV PUSH .FOR FS < 60 - SS PRN PRN Reason: FS < 60 Insulin Human Lispro (Humalog*) 0 units SUBCUT ACHS [facility]; Protocol Last Admin: 07/03/19 12:45 Dose: 4 unit Morphine Sulfate (Morphine Inj (Syringe))*) 2 mg IV Q4H PRN PRN Reason: PAIN - MILD Last Admin: 07/02/19 23:18 Dose: 2 mg Nystatin (Nystatin Top Powder*) 1 applic TOPICAL BID [facility] Last Admin: 07/03/19 08:59 Dose: 1 applic Sitagliptin Phosphate (Januvia (Nf)) 25 mg PO DAILY [facility]; Protocol Last Admin: 07/03/19 14:20 Dose: Not Given Tamsulosin HCl (Flomax Cap*) 0.4 mg PO DAILY [facility] Last Admin: 07/03/19 14:17 Dose: 0.4 mg Vital Signs - 8 hr 07/03/19 07/03/19 07:41 11:15 Temperature 97.4 F Pulse Rate 78 Respiratory 16 18 Rate Blood Pressure 100/47 (mmHg) O2 Sat by Pulse 93 Oximetry Oxygen Devices in Use Now: None Appearance: Comfortable, NAD Eyes: No Scleral Icterus Ears/Nose/Mouth/Throat: Clear Oropharnyx, Mucous Membranes Moist Neck: NL Appearance and Movements; NL JVP Respiratory: Symmetrical Chest Expansion and Respiratory Effort, - - Crackles bases and mid Cardiovascular: NL Sounds; No Murmurs; No JVD, - - Bilat le edema Abdominal: NL Sounds; No Tenderness; No Distention Skin: - - bilateral leg wounds Neurological: Alert and Oriented x 3 Nutrition: Taking PO's Result Diagrams: 07/02/19 18:50 07/02/19 18:50 Additional Lab and Data: Laboratory Results - last 24 hr 07/02/19 07/02/19 07/02/19 18:29 18:50 18:50 WBC 13.1 H RBC 3.55 L Hgb 9.0 L Hct 29 L MCV 80 MCH 25 L MCHC 32 RDW 19 H Plt Count 210 MPV 7.5 Neut % (Auto) 87.6 Lymph % (Auto) 3.6 Lake % (Auto) 7.1 Eos % (Auto) 0.8 Baso % (Auto) 0.9 Absolute Neuts (auto) 11.5 H Absolute Lymphs (auto) 0.5 L Absolute Monos (auto) 0.9 H Absolute Eos (auto) 0.1 Absolute Basos (auto) 0.1 Absolute Nucleated RBC 0.0 Nucleated RBC % 0.1 Patient Temperature ABG pH ABG pH (Temp Correct) ABG pCO2 ABG pCO2 (Temp Corrct ABG pO2 ABG pO2 (Temp Correct ABG HCO3 ABG O2 Saturation ABG Base Excess Respiration Rate O2 Delivery Device Ventilator Type Vent Mode FiO2 Inspiratory Time PEEP Pressure Support Pressure Control EPAP IPAP BiPAP Sodium 125 L Potassium 5.0 Chloride 90 L Carbon Dioxide 25 Anion Gap 10 BUN 117 H Creatinine 3.35 H Est GFR ( Amer) 21.4 Est GFR (Non-Af Amer) 17.7 BUN/Creatinine Ratio 34.9 H Glucose 214 H POC Glucose (mg/dL) 223 H Lactic Acid Calcium 8.6 Total Bilirubin 0.60 AST 69 H ALT 107 H Alkaline Phosphatase 111 H Troponin I 0.47 H* B-Natriuretic Peptide Total Protein 5.9 L Albumin 3.1 L Globulin 2.8 Albumin/Globulin Ratio 1.1 07/02/19 07/02/19 07/02/19 18:50 18:50 19:00 WBC RBC Hgb Hct MCV MCH MCHC RDW Plt Count MPV Neut % (Auto) Lymph % (Auto) Lake % (Auto) Eos % (Auto) Baso % (Auto) Absolute Neuts (auto) Absolute Lymphs (auto) Absolute Monos (auto) Absolute Eos (auto) Absolute Basos (auto) Absolute Nucleated RBC Nucleated RBC % Patient Temperature Not Reportable ABG pH 7.41 ABG pH (Temp Correct) Not Reportable ABG pCO2 38 ABG pCO2 (Temp Corrct Not Reportable ABG pO2 104 H ABG pO2 (Temp Correct Not Reportable ABG HCO3 24.7 ABG O2 Saturation 97.6 ABG Base Excess -0.3 Respiration Rate Not Reportable O2 Delivery Device n/c Ventilator Type Not Reportable Vent Mode Not Reportable FiO2 29 Inspiratory Time Not Reportable PEEP Not Reportable Pressure Support Not Reportable Pressure Control Not Reportable EPAP Not Reportable IPAP Not Reportable BiPAP Not Reportable Sodium Potassium Chloride Carbon Dioxide Anion Gap BUN Creatinine Est GFR ( Amer) Est GFR (Non-Af Amer) BUN/Creatinine Ratio Glucose POC Glucose (mg/dL) Lactic Acid 1.5 Calcium Total Bilirubin AST ALT Alkaline Phosphatase Troponin I B-Natriuretic Peptide > 1300 H Total Protein Albumin Globulin Albumin/Globulin Ratio 07/02/19 07/03/19 07/03/19 21:36 00:15 02:00 WBC RBC Hgb Hct MCV MCH MCHC RDW Plt Count MPV Neut % (Auto) Lymph % (Auto) Lake % (Auto) Eos % (Auto) Baso % (Auto) Absolute Neuts (auto) Absolute Lymphs (auto) Absolute Monos (auto) Absolute Eos (auto) Absolute Basos (auto) Absolute Nucleated RBC Nucleated RBC % Patient Temperature ABG pH ABG pH (Temp Correct) ABG pCO2 ABG pCO2 (Temp Corrct ABG pO2 ABG pO2 (Temp Correct ABG HCO3 ABG O2 Saturation ABG Base Excess Respiration Rate O2 Delivery Device Ventilator Type Vent Mode FiO2 Inspiratory Time PEEP Pressure Support Pressure Control EPAP IPAP BiPAP Sodium Potassium Chloride Carbon Dioxide Anion Gap BUN Creatinine Est GFR ( Amer) Est GFR (Non-Af Amer) BUN/Creatinine Ratio Glucose POC Glucose (mg/dL) 173 H Lactic Acid Calcium Total Bilirubin AST ALT Alkaline Phosphatase Troponin I 0.54 H* 0.55 H* B-Natriuretic Peptide Total Protein Albumin Globulin Albumin/Globulin Ratio 07/03/19 07/03/19 07/03/19 07:20 11:53 16:47 WBC RBC Hgb Hct MCV MCH MCHC RDW Plt Count MPV Neut % (Auto) Lymph % (Auto) Lake % (Auto) Eos % (Auto) Baso % (Auto) Absolute Neuts (auto) Absolute Lymphs (auto) Absolute Monos (auto) Absolute Eos (auto) Absolute Basos (auto) Absolute Nucleated RBC Nucleated RBC % Patient Temperature ABG pH ABG pH (Temp Correct) ABG pCO2 ABG pCO2 (Temp Corrct ABG pO2 ABG pO2 (Temp Correct ABG HCO3 ABG O2 Saturation ABG Base Excess Respiration Rate O2 Delivery Device Ventilator Type Vent Mode FiO2 Inspiratory Time PEEP Pressure Support Pressure Control EPAP IPAP BiPAP Sodium Potassium Chloride Carbon Dioxide Anion Gap BUN Creatinine Est GFR ( Amer) Est GFR (Non-Af Amer) BUN/Creatinine Ratio Glucose POC Glucose (mg/dL) 163 H 242 H 272 H Lactic Acid Calcium Total Bilirubin AST ALT Alkaline Phosphatase Troponin I B-Natriuretic Peptide Total Protein Albumin Globulin Albumin/Globulin Ratio Microbiology and Other Data: . Assess/Plan/Problems-Billing Assessment: 84 yr old with pmh of afib/flutter, cad, s/p TAVR, CKD 4, PAD, ATTR amyloid, DM, CHF, restrictive cardiomyopathy; who presented to ED with weight gain, lethargy, chest discomfort and shortness of breath - Patient Problems (1) Heart failure Comment: - Amyloid HF - Discharge from [facility] yesterday where he was on a Milrinone drip - After being home less than a day returned to our ED in worsening HF - Cardiology consulting and we very much appreciate their assistance. - Patient will continue home meds with addition of increased diuretics - Strict I & O - Daily weights (2) CKD (chronic kidney disease) Comment: - 3.35 creatinine - Reportedly not a dialysis candidate (3) Diabetes Comment: - Cont home medications - FS ACHS and SS (4) CAD (coronary artery disease) Comment: - No cp or sob - Cont home medications (5) Afib Comment: - Continue amiodarone and apixaban (6) Hyponatremia Comment: - Consider fluid restriction depending on results of palliative care consult tomorrow (7) Elevated troponin Comment: - Likely demand (8) Anemia Comment: - Chronic and at baseline - Likely secondary to kidney disease (9) DNR (do not resuscitate) Comment: - Patient is DNR, but is not DNI Status and Disposition: Palliative Consult tomorrow Attending: Dian Finn
[2019-07-04 07:26] LABS: Albumin 2.9 g/dL (3.2-5.2); BUN/Creatinine Ratio 31.8 (8-20); Calcium 8.2 mg/dL (8.6-10.3); EGFR African American 17.3 (>60); EGFR Non-African American 14.3 (>60); Total Bilirubin 0.6 mg/dL (0.2-1.0); Total Protein 5.9 g/dL (6.4-8.9)
[2019-07-04 07:34] LABS: Potassium 5.6 mmol/L (3.5-5.0)
[2019-07-04] MEDS: Insulin LISPRO* 1 UNITS UNIT SUBCUT SCH ×4 (07:45→22:00)
[2019-07-04] MEDS: Aspirin 81 mg CHEW TAB* 81 MG TAB.CHEW PO SCH (07:46)
[2019-07-04] MEDS: Apixaban* 2.5 MG TAB PO SCH ×2 (07:46→21:59)
[2019-07-04] MEDS: CMC: SitaGLIPtin (NF) 25 MG TAB PO SCH (07:46)
[2019-07-04] MEDS: Tamsulosin CAP* 0.4 MG PO SCH (07:46)
[2019-07-04] MEDS: Amiodarone TAB* 200 MG PO SCH (07:46)
[2019-07-04] MEDS: Nystatin TOP POWDER* 15 GM BTL TOPICAL SCH ×2 (07:46→22:01)
[2019-07-04 07:52] LABS: TSH (Thyroid Stimulating Horm) 14.59 mcIU/mL (0.34-5.60)
[2019-07-04] MEDS: Bumetanide IV* 0.25 MG/ML 4 ML VIAL SLOW PUSH SCH (08:11)
[2019-07-04] MEDS ORDERED: Metolazone TAB* 5 MG PO ONE (10:22)
--- NOTE | 2019-07-04 10:27 | PN ---
Subjective Date of Service: 07/04/19 Interval History: f/u adhf no dyspnea while laying still unable to sit up without help remains volume overloaded patient tells me he wants to at home Medications Active Medications: Amiodarone HCl (Cordarone Tab*) 200 mg PO DAILY [facility] Last Admin: 07/04/19 07:46 Dose: 200 mg Apixaban (Eliquis*) 2.5 mg PO BID [facility] Last Admin: 07/04/19 07:46 Dose: 2.5 mg Aspirin (Aspirin 81 Mg Chew Tab*) 81 mg PO DAILY [facility] Last Admin: 07/04/19 07:46 Dose: 81 mg Bumetanide (Bumex*) 5 mg SLOW PUSH BID [facility] Last Admin: 07/04/19 08:11 Dose: 5 mg Bumetanide (Bumex*) 5 mg SLOW PUSH ONCE [facility] Dextrose (D50w Syringe 50 Ml*) 12.5 gm IV PUSH .FOR FS < 60 - SS PRN PRN Reason: FS < 60 Insulin Human Lispro (Humalog*) 0 units SUBCUT ACHS [facility]; Protocol Last Admin: 07/04/19 07:45 Dose: 1 unit Levothyroxine Sodium (Synthroid Tab*) 125 mcg PO DAILY@0600 [facility] Metolazone (Zaroxolyn Tab*) 10 mg PO ONCE ONE Stop: 07/04/19 10:23 Morphine Sulfate (Morphine Inj (Syringe))*) 2 mg IV Q4H PRN PRN Reason: PAIN - MILD Last Admin: 07/02/19 23:18 Dose: 2 mg Nystatin (Nystatin Top Powder*) 1 applic TOPICAL BID [facility] Last Admin: 07/04/19 07:46 Dose: 1 applic Sitagliptin Phosphate (Januvia (Nf)) 25 mg PO DAILY [facility]; Protocol Last Admin: 07/04/19 07:46 Dose: 25 mg Tamsulosin HCl (Flomax Cap*) 0.4 mg PO DAILY [facility] Last Admin: 07/04/19 07:46 Dose: 0.4 mg Objective Vital Signs: Temp Pulse Resp BP Pulse Ox 98.1 F 59 20 99/51 99 07/04/19 07:15 07/04/19 07:15 07/04/19 07:15 07/04/19 07:15 07/04/19 07:15 Oxygen Devices in Use Now: Nasal Cannula Appearance: frail, elderly and ill Ears/Nose/Mouth/Throat: Clear Oropharnyx, Mucous Membranes Moist Neck: Trachea Midline, - - + jvd Respiratory: Symmetrical Chest Expansion and Respiratory Effort, - - decreased breath sounds bases, rales left mid lung Cardiovascular: RRR, - - 1/6 systolic murmur, device pocket intact Abdominal: NL Sounds; No Tenderness; No Distention Extremities: - - 2+ edema left leg with multiple wounds Skin: - - leg blisters and wound left leg Neurological: - - awake and alert Laboratory Results: 07/02/19 18:50 07/04/19 06:42 Total Bilirubin 0.60 mg/dL (0.2-1.0) 07/04/19 06:42 AST 72 U/L (13-39) H 07/04/19 06:42 ALT 125 U/L (7-52) H 07/04/19 06:42 Alkaline Phosphatase 114 U/L (34-104) H 07/04/19 06:42 B-Natriuretic Peptide > 1300 pg/mL (<=100) H 07/02/19 18:50 Total Protein 5.9 g/dL (6.4-8.9) L 07/04/19 06:42 Albumin 2.9 g/dL (3.2-5.2) L 07/04/19 06:42 Globulin 3.0 g/dL (2-4) 07/04/19 06:42 Albumin/Globulin Ratio 1.0 (1-3) 07/04/19 06:42 TSH 14.59 mcIU/mL (0.34-5.60) H 07/04/19 06:42 07/02/19 07/02/19 07/03/19 18:50 21:36 00:15 Troponin I 0.47 H* 0.54 H* 0.55 H* Diagnostic Imaging: Cardiac Procedures: Cardiac Catheterization - (01/01/2018) LAD non-obstructive disease, Proximal 50- 60% Lcx disease, heavily calcified RCA obstrucitve lesion with ANGÉLICA 1 flow. Had subsequent rotablator and JUDY x 2 to mid-distal RCA Multiple cardioversions TAVR valve with pacemaker afterwards RHC 05/31/2019 PCWP 10 mmhg CI 2.0 RA 1 mmHg PA 47/15/25 mmHg Exam Date: 07/02/19 IMPRESSION: RIGHT MID TO LOWER LUNG ZONE AND LEFT RETROCARDIAC AIRSPACE OPACIFICATION OF THE SMALL RIGHT PLEURAL EFFUSION. echo 05/31/2019 global LVEf 40% normal tavr function EKG Data: 07/02/2019: unsure underlying atrial/sinus rhythm V-paced Assessment/Plan 1. End stage amyloid HF 2. Advanced CKD - not a dialysis candidate 3. DM 4. Diabetic wounds 5. CAD 6. TAVR 7. Paroxysmal afib/flutter - Given another 5 mg IV bunex with 10 mg of metolazone x 1 now (ordered) - if able to diureis to euvolemia can use 10 mg of oral bumex at it discharge - patient not a transplant candidate due to age and comorbidities. - Would not start inotropes - Prognosis very poor, would recommend hospice - Palliative medicine consulted
[2019-07-04] MEDS ORDERED: Bumetanide IV* 0.25 MG/ML 4 ML VIAL SLOW PUSH ONE (11:07)
--- NOTE | 2019-07-04 13:49 | CONSULT ---
Palliative / Hospice Consult Ordering Provider: Chuyita Fair - PCP-Manoj Referal Reason: Goals of care/no bowel meds/MS - Subjective Code Status: DNR Advance Directives Location: In Chart MOLST Part A Completed: Yes - on chart MOLST Part E Completed:: Yes - on chart - History or Present Illness History or Present Illness: 84yo male with end stage amyloid HF presents with CP and lethargy was just discharged from [facility]. PMH is significant for CAD with TN s /p PCI, Aortic stenosis s/p TAVR complicated by heart block requiring pacemaker , CKD stage 4, paroxsymal afib/flutter on eliquis, PAD, DM type 2, ATTR amyloidosis, CHF restrictive, HTN and [place]. PSHx lives with , retired, no tob useer, no drug use, no etoh, daughter Sia is his HCP [phone] cell. Ymyngow-wer-erfxoksuvqj paced, CXR-small R pleural effusion, AV replacement, airspace opacification RM and RL lung and L retrocardiac, H/H 02/27 , Na 125, BUN/Cr 117/3.35, egfr 17.7, troponn .55, BNP>1300 and alb 3.1. Pt was admitted with diastolic CHF, CKD and elevated troponin. Pt has 2 prior admissions 04/21- for SOB and 05/02- for CHF. All history is from pt, family and medical records. Lab Values: Abnormal Lab Results 07/03/19 07/03/19 07/04/19 16:47 19:35 06:42 Sodium 124 L Potassium 5.6 H Chloride 90 L Carbon Dioxide 25 Anion Gap 9 BUN 128 H Creatinine 4.03 H Est GFR ( Amer) 17.3 Est GFR (Non-Af Amer) 14.3 BUN/Creatinine Ratio 31.8 H Glucose 115 H POC Glucose (mg/dL) 272 H 310 H Calcium 8.2 L Total Bilirubin 0.60 AST 72 H ALT 125 H Alkaline Phosphatase 114 H Total Protein 5.9 L Albumin 2.9 L Globulin 3.0 Albumin/Globulin Ratio 1.0 TSH 14.59 H 07/04/19 07/04/19 07:29 11:24 Sodium Potassium Chloride Carbon Dioxide Anion Gap BUN Creatinine Est GFR ( Amer) Est GFR (Non-Af Amer) BUN/Creatinine Ratio Glucose POC Glucose (mg/dL) 133 H 238 H Calcium Total Bilirubin AST ALT Alkaline Phosphatase Total Protein Albumin Globulin Albumin/Globulin Ratio TSH Laboratory Last Values WBC 13.1 10^3/uL (3.5-10.8) H 07/02/19 18:50 RBC 3.55 10^6 /uL (4.18-5.48) L 07/02/19 18:50 Hgb 9.0 g/dL (14.0-18.0) L 07/02/19 18:50 Hct 29 % (42-52) L 07/02/19 18:50 MCV 80 fL (80-94) 07/02/19 18:50 MCH 25 pg (27-31) L 07/02/19 18:50 MCHC 32 g/dL (31-36) 07/02/19 18:50 RDW 19 % (10-15) H 07/02/19 18:50 Plt Count 210 10^3/uL (150-450) 07/02/19 18:50 MPV 7.5 fL (7.4-10.4) 07/02/19 18:50 Neut % (Auto) 87.6 % 07/02/19 18:50 Lymph % (Auto) 3.6 % 07/02/19 18:50 [place] % (Auto) 7.1 % 07/02/19 18:50 Eos % (Auto) 0.8 % 07/02/19 18:50 Baso % (Auto) 0.9 % 07/02/19 18:50 Absolute Neuts (auto) 11.5 10^3/ul (1.5-7.7) H 07/02/19 18:50 Absolute Lymphs (auto) 0.5 10^3/ul (1.0-4.8) L 07/02/19 18:50 Absolute Monos (auto) 0.9 10^3/ul (0-0.8) H 07/02/19 18:50 Absolute Eos (auto) 0.1 10^3/ul (0-0.6) 07/02/19 18:50 Absolute Basos (auto) 0.1 10^3/ul (0-0.2) 07/02/19 18:50 Absolute Nucleated RBC 0.0 10^3/ul 07/02/19 18:50 Nucleated RBC % 0.1 07/02/19 18:50 Patient Temperature Not Reportable 07/02/19 19:00 ABG pH 7.41 (7.35-7.45) 07/02/19 19:00 ABG pH (Temp Correct) Not Reportable 07/02/19 19:00 ABG pCO2 38 mmHg (35-45) 07/02/19 19:00 ABG pCO2 (Temp Corrct Not Reportable 07/02/19 19:00 ABG pO2 104 mmHg (80-100) H 07/02/19 19:00 ABG pO2 (Temp Correct Not Reportable 07/02/19 19:00 ABG HCO3 24.7 mmol/L (19-31) 07/02/19 19:00 ABG O2 Saturation 97.6 % (94.0-98.0) 07/02/19 19:00 ABG Base Excess -0.3 mmol/L (-2.0-2.0) 07/02/19 19:00 Respiration Rate Not Reportable 07/02/19 19:00 O2 Delivery Device n/c 07/02/19 19:00 Ventilator Type Not Reportable 07/02/19 19:00 Vent Mode Not Reportable 07/02/19 19:00 FiO2 29 07/02/19 19:00 Inspiratory Time Not Reportable 07/02/19 19:00 PEEP Not Reportable 07/02/19 19:00 Pressure Support Not Reportable 07/02/19 19:00 Pressure Control Not Reportable 07/02/19 19:00 EPAP Not Reportable 07/02/19 19:00 IPAP Not Reportable 07/02/19 19:00 BiPAP Not Reportable 07/02/19 19:00 Sodium 124 mmol/L (135-145) L 07/04/19 06:42 Potassium 5.6 mmol/L (3.5-5.0) H 07/04/19 06:42 Chloride 90 mmol/L (101-111) L 07/04/19 06:42 Carbon Dioxide 25 mmol/L (22-32) 07/04/19 06:42 Anion Gap 9 mmol/L (2-11) 07/04/19 06:42 BUN 128 mg/dL (6-24) H 07/04/19 06:42 Creatinine 4.03 mg/dL (0.67-1.17) H 07/04/19 06:42 Est GFR ( Amer) 17.3 (>60) 07/04/19 06:42 Est GFR (Non-Af Amer) 14.3 (>60) 07/04/19 06:42 BUN/Creatinine Ratio 31.8 (8-20) H 07/04/19 06:42 Glucose 115 mg/dL (70-100) H 07/04/19 06:42 POC Glucose (mg/dL) 238 mg/dL (70-100) H 07/04/19 11:24 Lactic Acid 1.5 mmol/L (0.5-2.0) 07/02/19 18:50 Calcium 8.2 mg/dL (8.6-10.3) L 07/04/19 06:42 Total Bilirubin 0.60 mg/dL (0.2-1.0) 07/04/19 06:42 AST 72 U/L (13-39) H 07/04/19 06:42 ALT 125 U/L (7-52) H 07/04/19 06:42 Alkaline Phosphatase 114 U/L (34-104) H 07/04/19 06:42 Troponin I 0.55 ng/mL (<0.03) H* 07/03/19 00:15 B-Natriuretic Peptide > 1300 pg/mL (<=100) H 07/02/19 18:50 Total Protein 5.9 g/dL (6.4-8.9) L 07/04/19 06:42 Albumin 2.9 g/dL (3.2-5.2) L 07/04/19 06:42 Globulin 3.0 g/dL (2-4) 07/04/19 06:42 Albumin/Globulin Ratio 1.0 (1-3) 07/04/19 06:42 TSH 14.59 mcIU/mL (0.34-5.60) H 07/04/19 06:42 - Objective Active Medications: Amiodarone HCl (Cordarone Tab*) 200 mg PO DAILY [facility] Last Admin: 07/04/19 07:46 Dose: 200 mg Apixaban (Eliquis*) 2.5 mg PO BID [facility] Last Admin: 07/04/19 07:46 Dose: 2.5 mg Aspirin (Aspirin 81 Mg Chew Tab*) 81 mg PO DAILY [facility] Last Admin: 07/04/19 07:46 Dose: 81 mg Bumetanide (Bumex*) 5 mg SLOW PUSH BID [facility] Last Admin: 07/04/19 08:11 Dose: 5 mg Dextrose (D50w Syringe 50 Ml*) 12.5 gm IV PUSH .FOR FS < 60 - SS PRN PRN Reason: FS < 60 Insulin Human Lispro (Humalog*) 0 units SUBCUT ACHS [facility]; Protocol Last Admin: 07/04/19 12:23 Dose: 4 unit Levothyroxine Sodium (Synthroid Tab*) 125 mcg PO DAILY@0600 [facility] Morphine Sulfate (Morphine Inj (Syringe))*) 2 mg IV Q4H PRN PRN Reason: PAIN - MILD Last Admin: 07/02/19 23:18 Dose: 2 mg Nystatin (Nystatin Top Powder*) 1 applic TOPICAL BID [facility] Last Admin: 07/04/19 07:46 Dose: 1 applic Sitagliptin Phosphate (Januvia (Nf)) 25 mg PO DAILY [facility]; Protocol Last Admin: 07/04/19 07:46 Dose: 25 mg Tamsulosin HCl (Flomax Cap*) 0.4 mg PO DAILY [facility] Last Admin: 07/04/19 07:46 Dose: 0.4 mg Vital Signs: Vital Signs: Temp Pulse Resp BP Pulse Ox 97.6 F 60 18 106/50 98 07/04/19 11:15 07/04/19 11:15 07/04/19 11:15 07/04/19 11:15 07/04/19 11:15 Patient Weight: Weight 88.904 kg Intake and Output: Intake & Output 07/02/19 07/03/19 07/04/19 07/05/19 06:59 06:59 06:59 06:59 Intake Total 111 2880 360 Output Total 250 500 225 Balance -139 2380 135 Weight 84.323 kg 88.904 kg Intake: IV Fluids 2 IVPB 109 Oral 0 2880 360 Output: Urine 250 500 225 Other: Estimated Void Small # Bowel Movements 0 # Voids 4 ADLs: Meal Record Start: 07/02/19 22: 07 Freq: DAILY@0900,1400,1800 Status: Active Protocol: Created 07/02/19 22:07 System (Rec: 07/02/19 22:07 System MED-C04) Document 07/03/19 09:00 [id number] (Rec: 07/03/19 09:41 [id number] MED-C09) Document 07/03/19 13:29 [id number] (Rec: 07/03/19 13:29 [id number] MED-C09) Document 07/03/19 18:00 [id number] (Rec: 07/03/19 18:28 [id number] MED-C11) Document 07/04/19 09:00 [id number] (Rec: 07/04/19 11:08 [id number] MED-C09) Intake and Output Start: 07/02/19 18: 25 Freq: Status: Active Protocol: Created 07/02/19 18:25 System (Rec: 07/02/19 18:25 System [id number]) Intake and Output Start: 07/02/19 22: 07 Freq: DAILY@0600,1400,2200 Status: Active Protocol: Created 07/02/19 22:07 System (Rec: 07/02/19 22:07 System MED-C04) Document 07/03/19 06:00 [id number] (Rec: 07/03/19 06:08 [id number] MED-C05) Document 07/03/19 14:00 [id number] (Rec: 07/03/19 14:04 [id number] MED-C13) Document 07/03/19 17:04 [id number] (Rec: 07/03/19 17:04 [id number] MED-C13) Document 07/03/19 21:59 [id number] (Rec: 07/03/19 21:59 [id number] MED-C09) Document 07/04/19 05:11 [id number] (Rec: 07/04/19 05:12 [id number] MED-C09) Head: Normal Eyes: No Scleral Icterus Ears/Nose/Mouth/Throat: Clear Oropharnyx, Mucous Membranes Moist Neck: NL Appearance and Movements; NL JVP Cardiovascular: NL Sounds; No Murmurs; No JVD, - - Bilat le edema Abdominal: NL Sounds; No Tenderness; No Distention Extremities: - - 2+ edema in LLE Neurological: Alert and Oriented x 3 - Assessment Assessment: 84yo male with end stage amyloid HF requesting hospice - Plan Consult Plan (MU): Hospice Plan: Long discussion with and daughter Sia who is HCP ([phone])about goals of care. Reviewed options of continuing his present care with IV bumex or hospice. Hospice information/brochure given. Separately spoke with pt and about want he wants. He understands he is going to from his HF soon and he wants to be at home. He doesn't want to keep going to ER for IV bumex. 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 YARELIS is on chart he is DNR/DNI no wanting feeding tube. Case management notified and hospice referral sent will need hospital bed and 3 in 1 commode. Pt is eligible for hospice with diagnosis of endstage amyloid HF. KPS 40%, PPS 50%. - Time On Unit Date of Evaluation: 07/04/19 Hospice Consult Time in: 12:45 Hospice Consult Time Out: 13:45 Hospice Consult Time Total: 60 > 50% of Time Spend In Counseling or Coordinating Care: Yes
[2019-07-04] MEDS: Polyethylene Glycol 3350* 17 GM PACKET PO SCH (15:41)
[2019-07-04] MEDS ORDERED: Magnesium Hydroxide LIQ* 30 ML UDC PO PRN (17:11)
--- NOTE | 2019-07-04 17:48 | PN ---
Subjective Date of Service: 07/04/19 Interval History: Patient states that he feels better than when he first came in, however he is aware of his prognosis. When asked about his impression of his conversation with Dr. Downs, he seemed accepting of his options and is anxious to get home where he wishes to pass away. Family History: Unchanged from Admission Social History: Unchanged from Admission Past Medical History: Unchanged from Admission Objective Active Medications: Amiodarone HCl (Cordarone Tab*) 200 mg PO DAILY [facility] Last Admin: 07/04/19 07:46 Dose: 200 mg Apixaban (Eliquis*) 2.5 mg PO BID [facility] Last Admin: 07/04/19 07:46 Dose: 2.5 mg Aspirin (Aspirin 81 Mg Chew Tab*) 81 mg PO DAILY [facility] Last Admin: 07/04/19 07:46 Dose: 81 mg Bisacodyl (Dulcolax Supp*) 10 mg SD DAILY PRN PRN Reason: CONSTIPATION Last Admin: 07/04/19 15:42 Dose: 10 mg Bumetanide (Bumex*) 5 mg SLOW PUSH BID [facility] Last Admin: 07/04/19 08:11 Dose: 5 mg Dextrose (D50w Syringe 50 Ml*) 12.5 gm IV PUSH .FOR FS < 60 - SS PRN PRN Reason: FS < 60 Insulin Human Lispro (Humalog*) 0 units SUBCUT [facility]; Protocol Last Admin: 07/04/19 12:23 Dose: 4 unit Levothyroxine Sodium (Synthroid Tab*) 125 mcg PO DAILY@0600 [facility] Magnesium Hydroxide (Milk Of Magnesia Liq*) 30 ml PO Q6H PRN PRN Reason: CONSTIPATION Morphine Sulfate (Morphine Inj (Syringe))*) 2 mg IV Q4H PRN PRN Reason: PAIN - MILD Last Admin: 07/02/19 23:18 Dose: 2 mg Nystatin (Nystatin Top Powder*) 1 applic TOPICAL BID [facility] Last Admin: 07/04/19 07:46 Dose: 1 applic Patiromer (Veltassa Powder*) 8.4 gm PO ONCE ONE Stop: 07/05/19 15:31 Polyethylene Glycol/Electrolytes (Miralax (17 Gm Dose Garrett)) 17 gm PO DAILY [facility] Last Admin: 07/04/19 15:41 Dose: 17 gm Sitagliptin Phosphate (Januvia (Nf)) 25 mg PO DAILY [facility]; Protocol Last Admin: 07/04/19 07:46 Dose: 25 mg Tamsulosin HCl (Flomax Cap*) 0.4 mg PO DAILY [facility] Last Admin: 07/04/19 07:46 Dose: 0.4 mg Vital Signs - 8 hr 07/04/19 07/04/19 11:15 16:50 Temperature 97.6 F 97.7 F Pulse Rate 60 58 Respiratory 18 16 Rate Blood Pressure 106/50 103/47 (mmHg) O2 Sat by Pulse 98 99 Oximetry Oxygen Devices in Use Now: Nasal Cannula Appearance: This is a well developed, ill looking gentleman in no acute distress. Eyes: No Scleral Icterus, PERRLA Ears/Nose/Mouth/Throat: NL Teeth, Lips, Gums, Clear Oropharnyx, Mucous Membranes Moist Neck: NL Appearance and Movements; NL JVP, Trachea Midline Respiratory: Symmetrical Chest Expansion and Respiratory Effort, - - Crackles in bilateral bases. Cardiovascular: NL Sounds; No Murmurs; No JVD, RRR, No Edema Abdominal: NL Sounds; No Tenderness; No Distention Lymphatic: No Cervical Adenopathy Extremities: No Edema, No Clubbing, Cyanosis Skin: No Nodules or Sclerosis, - - Multiple wounds to right stump and left johnson. Large intact blister to left lafteral heel. Lines/Tubes/Other Access: Clean, Dry and Intact Peripheral IV Result Diagrams: 07/02/19 18:50 07/04/19 06:42 Additional Lab and Data: Laboratory Results - last 24 hr 07/02/19 07/02/19 07/02/19 18:29 18:50 18:50 WBC 13.1 H RBC 3.55 L Hgb 9.0 L Hct 29 L MCV 80 MCH 25 L MCHC 32 RDW 19 H Plt Count 210 MPV 7.5 Neut % (Auto) 87.6 Lymph % (Auto) 3.6 [place] % (Auto) 7.1 Eos % (Auto) 0.8 Baso % (Auto) 0.9 Absolute Neuts (auto) 11.5 H Absolute Lymphs (auto) 0.5 L Absolute Monos (auto) 0.9 H Absolute Eos (auto) 0.1 Absolute Basos (auto) 0.1 Absolute Nucleated RBC 0.0 Nucleated RBC % 0.1 Patient Temperature ABG pH ABG pH (Temp Correct) ABG pCO2 ABG pCO2 (Temp Corrct ABG pO2 ABG pO2 (Temp Correct ABG HCO3 ABG O2 Saturation ABG Base Excess Respiration Rate O2 Delivery Device Ventilator Type Vent Mode FiO2 Inspiratory Time PEEP Pressure Support Pressure Control EPAP IPAP BiPAP Sodium 125 L Potassium 5.0 Chloride 90 L Carbon Dioxide 25 Anion Gap 10 BUN 117 H Creatinine 3.35 H Est GFR ( Amer) 21.4 Est GFR (Non-Af Amer) 17.7 BUN/Creatinine Ratio 34.9 H Glucose 214 H POC Glucose (mg/dL) 223 H Lactic Acid Calcium 8.6 Total Bilirubin 0.60 AST 69 H ALT 107 H Alkaline Phosphatase 111 H Troponin I 0.47 H* B-Natriuretic Peptide Total Protein 5.9 L Albumin 3.1 L Globulin 2.8 Albumin/Globulin Ratio 1.1 07/02/19 07/02/19 07/02/19 18:50 18:50 19:00 WBC RBC Hgb Hct MCV MCH MCHC RDW Plt Count MPV Neut % (Auto) Lymph % (Auto) [place] % (Auto) Eos % (Auto) Baso % (Auto) Absolute Neuts (auto) Absolute Lymphs (auto) Absolute Monos (auto) Absolute Eos (auto) Absolute Basos (auto) Absolute Nucleated RBC Nucleated RBC % Patient Temperature Not Reportable ABG pH 7.41 ABG pH (Temp Correct) Not Reportable ABG pCO2 38 ABG pCO2 (Temp Corrct Not Reportable ABG pO2 104 H ABG pO2 (Temp Correct Not Reportable ABG HCO3 24.7 ABG O2 Saturation 97.6 ABG Base Excess -0.3 Respiration Rate Not Reportable O2 Delivery Device n/c Ventilator Type Not Reportable Vent Mode Not Reportable FiO2 29 Inspiratory Time Not Reportable PEEP Not Reportable Pressure Support Not Reportable Pressure Control Not Reportable EPAP Not Reportable IPAP Not Reportable BiPAP Not Reportable Sodium Potassium Chloride Carbon Dioxide Anion Gap BUN Creatinine Est GFR ( Amer) Est GFR (Non-Af Amer) BUN/Creatinine Ratio Glucose POC Glucose (mg/dL) Lactic Acid 1.5 Calcium Total Bilirubin AST ALT Alkaline Phosphatase Troponin I B-Natriuretic Peptide > 1300 H Total Protein Albumin Globulin Albumin/Globulin Ratio 07/02/19 07/03/19 07/03/19 21:36 00:15 02:00 WBC RBC Hgb Hct MCV MCH MCHC RDW Plt Count MPV Neut % (Auto) Lymph % (Auto) [place] % (Auto) Eos % (Auto) Baso % (Auto) Absolute Neuts (auto) Absolute Lymphs (auto) Absolute Monos (auto) Absolute Eos (auto) Absolute Basos (auto) Absolute Nucleated RBC Nucleated RBC % Patient Temperature ABG pH ABG pH (Temp Correct) ABG pCO2 ABG pCO2 (Temp Corrct ABG pO2 ABG pO2 (Temp Correct ABG HCO3 ABG O2 Saturation ABG Base Excess Respiration Rate O2 Delivery Device Ventilator Type Vent Mode FiO2 Inspiratory Time PEEP Pressure Support Pressure Control EPAP IPAP BiPAP Sodium Potassium Chloride Carbon Dioxide Anion Gap BUN Creatinine Est GFR ( Amer) Est GFR (Non-Af Amer) BUN/Creatinine Ratio Glucose POC Glucose (mg/dL) 173 H Lactic Acid Calcium Total Bilirubin AST ALT Alkaline Phosphatase Troponin I 0.54 H* 0.55 H* B-Natriuretic Peptide Total Protein Albumin Globulin Albumin/Globulin Ratio 07/03/19 07/03/19 07/03/19 07:20 11:53 16:47 WBC RBC Hgb Hct MCV MCH MCHC RDW Plt Count MPV Neut % (Auto) Lymph % (Auto) [place] % (Auto) Eos % (Auto) Baso % (Auto) Absolute Neuts (auto) Absolute Lymphs (auto) Absolute Monos (auto) Absolute Eos (auto) Absolute Basos (auto) Absolute Nucleated RBC Nucleated RBC % Patient Temperature ABG pH ABG pH (Temp Correct) ABG pCO2 ABG pCO2 (Temp Corrct ABG pO2 ABG pO2 (Temp Correct ABG HCO3 ABG O2 Saturation ABG Base Excess Respiration Rate O2 Delivery Device Ventilator Type Vent Mode FiO2 Inspiratory Time PEEP Pressure Support Pressure Control EPAP IPAP BiPAP Sodium Potassium Chloride Carbon Dioxide Anion Gap BUN Creatinine Est GFR ( Amer) Est GFR (Non-Af Amer) BUN/Creatinine Ratio Glucose POC Glucose (mg/dL) 163 H 242 H 272 H Lactic Acid Calcium Total Bilirubin AST ALT Alkaline Phosphatase Troponin I B-Natriuretic Peptide Total Protein Albumin Globulin Albumin/Globulin Ratio Microbiology and Other Data: . Assess/Plan/Problems-Billing Assessment: 84 yr old with pmh of afib/flutter, cad, s/p TAVR, CKD 4, PAD, ATTR amyloid, DM, CHF, restrictive cardiomyopathy; who presented to ED with weight gain, lethargy, chest discomfort and shortness of breath - Patient Problems (1) Admission for hospice care Status: Acute Code(s): Z51.5 - ENCOUNTER FOR PALLIATIVE CARE SNOMED Code(s) : 090022991 Comment: -End stage heart failure, multiple admissions for heart failure exacerbations. -D/C as soon as hospice case for home is opened. (2) CKD (chronic kidney disease) stage 4, GFR 15-29 ml/min Status: Acute Priority: Medium Code(s): N18.4 - CHRONIC KIDNEY DISEASE, STAGE 4 (SEVERE) SNOMED Code(s): 489680182 Comment: -IV bumex converted to PO as patient going to be D/Turner to home hospice. -acute on chronic -from cardiorenal syndrome -following Dr. Jackson as outpatient (3) Diastolic heart failure Status: Acute Priority: Medium Code(s): I50.30 - UNSPECIFIED DIASTOLIC ( CONGESTIVE) HEART FAILURE SNOMED Code(s): 872641395 Comment: -NYHA class IV, ultimately needs milrinone infusion at home but pt refuses. He continuously keep going into exacerbation. Now family is ready to transition him to hospice. -Bumex for symptom management. Transition to oral bumex tonight. -Continue daily weights (4) Elevated troponin Status: Acute Code(s): R79.89 - OTHER SPECIFIED ABNORMAL FINDINGS OF BLOOD CHEMISTRY SNOMED Code(s): 957770644 Comment: - Likely demand. No longer trending, patient is to be D/Turner on hospice. (5) Hyperkalemia Status: Acute Priority: High Code(s): E87.5 - HYPERKALEMIA SNOMED Code(s) : 11152611 Comment: -Potassium 5.6 this AM. Ordered one time dose of Valtassa powder. Asymptomatic. (6) Hypothyroidism (acquired) Status: Acute Priority: Medium Code(s): E03.9 - HYPOTHYROIDISM, UNSPECIFIED SNOMED Code(s): 939080863 Comment: -TSH of 14.59, continue levothyroxine 125mcg. (7) DVT prophylaxis Status: Acute Priority: Low Code(s): WNK9466 - SNOMED Code(s): 830815480 Comment: - On eliquis (8) Do not resuscitate Status: Acute Status and Disposition: Palliative Consult tomorrow Attending: Dian Finn
[2019-07-04] MEDS ORDERED: Senna TAB 8.6 mg* TAB PO SCH (21:00)
[2019-07-04] MEDS: Bumetanide TAB* 2 MG PO SCH (21:59)
[2019-07-05] MEDS: Levothyroxine TAB* 125 MCG TAB PO SCH (05:20)
[2019-07-05] MEDS: CMC: SitaGLIPtin (NF) 25 MG TAB PO SCH (08:07)
[2019-07-05] MEDS: Bumetanide TAB* 2 MG PO SCH ×2 (08:07→21:00)
[2019-07-05] MEDS: Aspirin 81 mg CHEW TAB* 81 MG TAB.CHEW PO SCH (08:08)
[2019-07-05] MEDS: Amiodarone TAB* 200 MG PO SCH (08:08)
[2019-07-05] MEDS: Apixaban* 2.5 MG TAB PO SCH ×2 (08:08→21:00)
[2019-07-05] MEDS: Tamsulosin CAP* 0.4 MG PO SCH (08:08)
[2019-07-05] MEDS: Insulin LISPRO* 1 UNITS UNIT SUBCUT SCH ×4 (08:11→21:00)
[2019-07-05] MEDS: Morphine INJ* 2 MG/ML 1 ML SYRINGE (TWO MG - NEW SYRINGE VERSION) IV PRN (08:11)
[2019-07-05] MEDS: Polyethylene Glycol 3350* 17 GM PACKET PO SCH (08:11)
[2019-07-05] MEDS: Nystatin TOP POWDER* 15 GM BTL TOPICAL SCH ×2 (08:12→21:15)
[2019-07-05] MEDS ORDERED: Patiromer POWDER* 8.4 GM PAK PO ONE (15:30)
--- NOTE | 2019-07-05 16:18 | DS ---
CC: Dr. Hill; Dr. Jo Downs; Dr. Harp * DISCHARGE SUMMARY: DATE OF ADMISSION: 07/02/19 DATE OF DISCHARGE: 07/05/19 PRIMARY CARE PROVIDER: Dr. Harp. DISCHARGE DIAGNOSIS: Worsening and acute decompensation of chronic congestive heart failure in a patient with history of amyloid cardiomyopathy. SECONDARY DIAGNOSES: 1. Paroxysmal atrial fibrillation/flutter, on amiodarone and Eliquis. 2. History of ATTR amyloid. 3. Chronic kidney disease. 4. 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 5. Hypertension. 6. Coronary artery disease. 7. Peripheral arterial disease. 8. TAVR complicated with heart block requiring pacemaker. 9. Guillain-[place]. 10. Diabetes type 2. 11. Diabetic leg wounds. 12. Status post remote right [id number] amputation. MEDICATIONS AT DISCHARGE: Include: 1. Amiodarone 200 mg daily. 2. Acetaminophen on a p.r.n. basis. 3. Tamsulosin 0.4 mg daily. 4. Tafamidis 80 mg daily. 5. Januvia 50 mg daily. 6. Nitroglycerin on a p.r.n. basis sublingually. 7. Multivitamin 1 tablet daily. 8. Synthroid 125 mcg daily. 9. Insulin glargine 25 units daily. 10. Colace 100 mg b.i.d. 11. Bumex 5 mg b.i.d. 12. Aspirin 81 mg daily. 13. Eliquis 2.5 mg daily. CONSULTATIONS DURING THE HOSPITAL STAY: Included Dr. Hill from Cardiology, Dr. Downs from Palliative Care. LABORATORY DATA AND STUDIES PERFORMED DURING THE HOSPITAL STAY: Included on 08/18, sodium of 124, potassium 5.6, chloride 90, carbon dioxide 25, BUN 128, creatinine was 4.03. CBC at admission on 07/02/19 showed white blood cell count of 13.1, hemoglobin of 9.0, hematocrit of 29, and platelets of 210. Troponin ranged from 0.47 to 0.55 on the first 24 hours of admission. Portable chest x-ray at admission, impression: "Right mid lower lung zone and left retrocardiac airspace opacification and small right-sided pleural effusion. " HOSPITALIZATION COURSE: Pradip Méndez is an 84-year-old male who was transferred from [facility] after he was treated there on milrinone drip with minimal improvement. He was advised to go home on milrinone drip, which he refused, was tapered off and sent to our facility to seek hospice care. Here, he was seen by both Dr. Hill from Cardiology as well as Dr. Jo Downs from Palliative Care. Both of those physicians agreed that the patient is a good hospice candidate. Tomorrow at 9:30 in the morning, he is scheduled for a hospice visit to sign on. He is planning to be discharged today after an arrangement of home hospital bed as well as transportation today. Please note that Dr. Hill increased the patient's Bumex to 5 mg b.i.d. The patient is agreeable to that plan. PHYSICAL EXAMINATION: At the time of discharge, blood pressure of 102/51, heart rate of 60 and regular, respiratory rate 16, oxygen saturation 92% on room air, temperature 97.2. General: The patient is a very pleasant 84-year-old male, who is in no acute distress. The patient is alert and oriented x3. HEENT : Head: Atraumatic, normocephalic. Eyes: Pupils are equal, reactive to light and accommodation. Oropharynx is clear. Mucosa moist. Neck: Supple. No JVD. No bruits bilaterally. Cardiovascular: Regular rate and rhythm. Of note , the patient is paced. Respiratory: Crackles in almost the entire bilateral lung williamson. Abdomen: Soft, nontender. Bowel sounds are present in all 4 quadrants. Extremities: Status post right-sided BKA with a small eschar covered chronic ulceration at the tip of the stump of 2 cm in diameter that is unstageable. The chronic wounds on the left foot were not uncovered for evaluation since they were just re-wrapped. The patient has known diabetic foot ulcers on the left foot. Please note that the patient is being discharged for hospice care. At discharge, the patient is recommended to follow up with hospice whose insurance representative is going to come over tomorrow at 9:30 to home for hospice sign on. Please note that this is a short summary of the patient's hospitalization. Please refer to further medical records for details. DISPOSITION: To home with hospice. CONDITION AT DISCHARGE: Stable. TIME SPENT: Please note that approximately 45 minutes was spent on the patient' s discharge. [id number]/[facility] #: [id number] [facility]yler
[2019-07-06] MEDS: Levothyroxine TAB* 125 MCG TAB PO SCH (07:13)
[2019-07-06 07:35] VITALS: BP 105/50
== END 2019-07-06 08:00 | disposition hospice, home (50) | DRG 291 ==
LOC: ED 18:07 → MED 20:52
PROVIDERS: ADMIT Student in an Organized Health Care Education/Training Program; ATTEND Internal Medicine
DX: 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 disease with heart failure and stage 1 through stage 4 chronic kidney disease, or unspecified chronic kidney disease (principal); I50.33 Acute on chronic diastolic (congestive) heart failure; N18.4 Chronic kidney disease, stage 4 (severe); I48.92 Unspecified atrial flutter; E85.4 Organ-limited amyloidosis; G61.0 Guillain-Barre syndrome; E87.1 Hypo-osmolality and hyponatremia; E78.00 Pure hypercholesterolemia, unspecified; M19.90 Unspecified osteoarthritis, unspecified site; E11.319 Type 2 diabetes mellitus with unspecified diabetic retinopathy without macular edema; E11.40 Type 2 diabetes mellitus with diabetic neuropathy, unspecified; D63.1 Anemia in chronic kidney disease; Z66 Do not resuscitate; I48.0 Paroxysmal atrial fibrillation; I43 Cardiomyopathy in diseases classified elsewhere; E11.51 Type 2 diabetes mellitus with diabetic peripheral angiopathy without gangrene; E11.22 Type 2 diabetes mellitus with diabetic chronic kidney disease; Z96.612 Presence of left artificial shoulder joint; E03.9 Hypothyroidism, unspecified; Z96.611 Presence of right artificial shoulder joint; I25.10 Atherosclerotic heart disease of native coronary artery without angina pectoris; I44.30 Unspecified atrioventricular block; E87.5 Hyperkalemia; Z95.2 Presence of prosthetic heart valve; Z95.0 Presence of cardiac pacemaker; Z79.4 Long term (current) use of insulin; Z79.890 Hormone replacement therapy; Z79.82 Long term (current) use of aspirin; Z79.01 Long term (current) use of anticoagulants; Z79.899 Other long term (current) drug therapy; Z89.511 Acquired absence of right leg below knee; Z88.6 Allergy status to analgesic agent; Z88.8 Allergy status to other drugs, medicaments and biological substances; I25.2 Old myocardial infarction
CPT/HCPCS: 30901; 36415; 71045; 80053; 82803; 83605; 83880; 84443; 84484; 85025; 87040; 93005; 99284; A9270-GY; J2270; J2543